=== PATIENT | male | born 1945 | race Caucasian/White ===

== ENCOUNTER 2021-10-29 19:04 | Emergency (ER) | payer OTHER, SELFPAY ==
--- NOTE | ~2021-10-29 | XR_ITS ---
EXAMINATION: XR CHEST CLINICAL INFORMATION: Chest pain. COMPARISON: Previous studies from 2007 were not available for comparison TECHNIQUE: Frontal view of the chest was obtained. FINDINGS: Mildly coarsened interstitial markings are seen with subtle opacities in the left mid and bilateral lower lung hernandez. The heart and mediastinal structures are unremarkable. XR/XR chest 1V IMPRESSION: 1 findings are nonspecific and could represent chronic interstitial changes however an infectious/inflammatory process cannot be excluded. Correlate clinically.
[2021-10-29 19:17] VITALS: BP 200/100; BP 219/80; PULSE 89; PULSE 90; RESP 20; TEMP 36.8; O2SAT 96; BMI 36.2
--- NOTE | 2021-10-29 19:31 | ED.GENADULT ---
HPI - General Adult General Chief complaint: General Medical Stated complaint: htn/bilat lower leg problems Time Seen by Provider: 10/29/21 19:16 Source: patient and family (Granddaughter) Mode of arrival: ambulatory Limitations: language barrier (Patient speaks [place] Islander, he does understand [place], the patient's granddaughter is here and she was used as an interpreter deaf) History of Present Illness HPI narrative: 76-year-old male who presents emergency department for evaluation of elevated blood pressure. According to his granddaughter, the patient was admitted to [facility] approximately 2 weeks ago for congestive heart failure and had a cardiac workup including cardiac catheterization. The patient was discharged with Plavix as his only new medication. Patient does take carvedilol and lisinopril as the only 2 medications that may affect his blood pressure. The granddaughter states that they check his blood pressure twice a day, once in the morning and once at night. This evening, they checked his blood pressure in the systolic blood pressure was 240. Patient also had some tingling S in his legs but otherwise had no other symptoms. According to the granddaughter the patient's systolic blood pressure usually is in the 140-160 range. The patient denied fever, chills, chest pain, shortness of breath, nausea, vomiting, headache. He has not noticed any pain or swelling in his lower extremities. He states he has had no change in his urine or bowel habits. Patient has been compliant with his medications. He states he has also been vaccinated for COVID-19. He has received the 2 shot vaccines but has not received his booster shot yet Related Data Allergies Allergy/AdvReac Type Severity Reaction Status Date / Time No Known Allergies Allergy Verified 10/29/21 19:34 Review of Systems Review of Systems: Yes all other systems are reviewed and are negative [facility] Past Medical History [facility] Narrative: Past medical history: Hypertension, congestive heart failure, COPD on 3 L of oxygen via nasal cannula 17/06 , chronic kidney disease GFR of 35%. Past surgical history: None. Social history: He denies tobacco, alcohol and drug use. Social History Social History Advance Directives: No Advance Directives Information Provided: Yes Physical Exam Vital Signs: Vital Signs: Last Vital Signs Temp 98.2 F 10/29/21 19:17 Pulse 83 10/29/21 20:02 Resp 16 10/29/21 20:02 BP 168/69 H 10/29/21 20:02 Pulse Ox 96 10/29/21 20:02 Oxygen Flow Rate 3 10/29/21 19:17 BMI result Body Mass Index 36.2 Const: General: cooperative and no acute distress Orientation/consciousness: oriented to person and oriented to place Limitations: no limitations HENMT: Head: Yes normal to inspection, Yes normocephalic and Yes atraumatic Ears: external ears normal General nose exam: Normal external nose present Face and sinus: Yes normal facial exam Mouth: Normal oral and palatal mucosa present Throat: Yes posterior oropharynx normal Eyes: General: appearance normal, both eyes and all related structures Pupils: Equal, round and reactive pupils present Neck: Neck: Yes normal visual inspection, Yes no lymphadenopathy, Yes trachea midline and Yes supple Chest: Chest palpation & inspection: normal inspection of the chest and normal palpation of entire chest wall Resp: Effort & Inspection: normal respiratory effort and able to speak in complete sentences Auscultation: clear to auscultation bilaterally Cardio: Rate: regular rate Rhythm: regular rhythm Heart sounds: S1 normal heart sound present, S2 normal heart sound present and no murmurs GI: Inspection: Yes normal to inspection Palpation (GI): Soft to palpation, nontender and no guarding Auscultation: normal bowel sounds : General: Yes no CVA tenderness Back/Spine/Pelvis: Back: no CVA tenderness Skin: General skin exam: no rashes or lesions noted Neuro: General: oriented to person and oriented to place Cranial nerves: Yes CN's II-XII intact bilaterally and Yes Equal, round and reactive pupils present Cognition (Neuro): normal cognition Motor exam (neuro): 5/5 motor strength present throughout Extrem: General: Yes normal to inspection Psych: Appearance: grossly normal Speech and movement: Normal speech and movement present Affect: normal affect Attitude: cooperative Thought process: Normal thought process present Thought content: Normal thought content present Course Course Course Narrative: 76-year-old male with a history of hypertension who presents emergency department for evaluation an asymptomatic elevation his systolic blood pressure in the 240 range. The patient has been compliant with his medications. The patient was recently hospitalized at [facility] for congestive heart failure and had a cardiac workup which included a cardiac catheterization. The only new medication added to his regimen after this workup was Plavix. The patient's vital signs did reveal an elevated blood pressure of 219/80 otherwise were unremarkable. Patient's physical examination was unremarkable. I ordered a CBC, CMP, COVID-19, troponin and urinalysis. Twelve EKG and one-view chest x-ray will also be obtained. The patient was placed on nuclear monitoring technician and we will monitor his blood pressure while he is in the emergency department. Glucose was elevated 1054: Laboratory evaluation: WBC elevated 11.5. BUN and creatinine were elevated 28 and 1.38 with a GFR of 43.5. Glucose was elevated 147. High sensitive troponin was detectable but not elevated at 6.6. Chest x-ray is consistent with his COPD with no acute findings. Twelve EKG was unremarkable. Patient's blood pressure did improve without any treatment. Patient's presentation is consistent with a central hypertension I did discuss this with the patient, his family member as well. Patient was given verbal and printed instructions discharged home. Medical Decision Making Lab Data Result diagrams: 10/29/21 20:01 10/29/21 20:01 Labs: Lab Results 10/29/21 10/29/21 10/29/21 Range/Units 19:57 20:01 20:01 WBC 11.5 H (4.8-10.8) X10*3/uL RBC 4.61 (4.60-5.80) X10*6/uL Hgb 13.3 L (14.0-18.0) g/dl Hct 40.7 L (42.0-52.0) % MCV 88.3 (80.0-98.0) fL MCH 28.9 (27.0-33.0) pg MCHC 32.7 (31.0-36.0) g/dl RDW 12.7 (11.0-16.0) % Plt Count 298 (160-400) X10*3/uL MPV 9.9 (9.4-12.4) fL Immature Gran % (Auto) 0.4 (0.0-0.4) % Neut % (Auto) 63.7 (45-73) % Lymph % (Auto) 22.5 (20-40) % [place] % (Auto) 6.3 (2-11) % Eos % (Auto) 6.2 H (0-4) % Baso % (Auto) 0.9 (0-2) % Lymph # (Auto) 2.6 (1.2-4.9) X10*3/uL [place] # (Auto) 0.7 (0.1-1.2) X10*3/uL Eos # (Auto) 0.7 H (0.0-0.4) X10*3/uL Baso # (Auto) 0.1 (0.0-0.2) X10*3/uL Abs Immat Gran (auto) 0.05 H (0.00-0.03) X10*3/uL Absolute Neuts (auto) 7.4 (2.0-8.3) x10*3/uL Absolute Nucleated RBC 0.000 (0.0-0.012) X10*3/uL Nucleated RBC % (auto) 0.0 (0.0-0.2) /100WBC Sodium 133 L (135-145) mmol/L Potassium 4.9 (3.3-5.1) mmol/L Chloride 104 (96-108) mmol/L Carbon Dioxide 21 L (22-29) mmol/L Anion Gap 13 (12-20) BUN 28 H (9-16) mg/dL Creatinine 1.38 (0.5-1.4) mg/dL Estim Creat Clear Calc 43.5 Estimated GFR 50 Random Glucose 147 H (60-115) mg/dL Calcium 8.8 (8.4-10.2) mg/dL Total Bilirubin 0.5 (0.0-1.0) mg/dL AST 19 (5-37) U/L ALT 19 (0-40) U/L Alkaline Phosphatase 89 (39-117) U/L Troponin I High Sens (<3.5-35.0) ng/L Total Protein 6.6 (6.5-8.0) g/dL Albumin 3.4 L (3.5-5.0) g/dL Urine Color Urine Appearance Urine pH (5.0-8.0) Ur Specific [place] (1.005-1.025) Urine Protein (NEG-TRACE) MG/DL Urine Glucose (UA) (NEG) MG/DL Urine Ketones (NEG) MG/DL Urine Blood (NEG) Urine Nitrite (NEG) Ur Leukocyte Esterase (NEG) Urine RBC (0) /HPF Urine WBC (0-4) /HPF Ur Squamous Epith Cells /LPF Urine Bacteria /LPF COVID-19 (DANNY) Negative (Negative) COVID-19 Clin Com See Note 10/29/21 10/29/21 Range/Units 20:01 20:39 WBC (4.8-10.8) X10*3/uL RBC (4.60-5.80) X10*6/uL Hgb (14.0-18.0) g/dl Hct (42.0-52.0) % MCV (80.0-98.0) fL MCH (27.0-33.0) pg MCHC (31.0-36.0) g/dl RDW (11.0-16.0) % Plt Count (160-400) X10*3/uL MPV (9.4-12.4) fL Immature Gran % (Auto) (0.0-0.4) % Neut % (Auto) (45-73) % Lymph % (Auto) (20-40) % [place] % (Auto) (2-11) % Eos % (Auto) (0-4) % Baso % (Auto) (0-2) % Lymph # (Auto) (1.2-4.9) X10*3/uL [place] # (Auto) (0.1-1.2) X10*3/uL Eos # (Auto) (0.0-0.4) X10*3/uL Baso # (Auto) (0.0-0.2) X10*3/uL Abs Immat Gran (auto) (0.00-0.03) X10*3/uL Absolute Neuts (auto) (2.0-8.3) x10*3/uL Absolute Nucleated RBC (0.0-0.012) X10*3/uL Nucleated RBC % (auto) (0.0-0.2) /100WBC Sodium (135-145) mmol/L Potassium (3.3-5.1) mmol/L Chloride (96-108) mmol/L Carbon Dioxide (22-29) mmol/L Anion Gap (12-20) BUN (9-16) mg/dL Creatinine (0.5-1.4) mg/dL Estim Creat Clear Calc Estimated GFR Random Glucose (60-115) mg/dL Calcium (8.4-10.2) mg/dL Total Bilirubin (0.0-1.0) mg/dL AST (5-37) U/L ALT (0-40) U/L Alkaline Phosphatase (39-117) U/L Troponin I High Sens 6.3 (<3.5-35.0) ng/L Total Protein (6.5-8.0) g/dL Albumin (3.5-5.0) g/dL Urine Color YELLOW Urine Appearance CLEAR Urine pH 7.0 (5.0-8.0) Ur Specific [place] 1.015 (1.005-1.025) Urine Protein 2+ H (NEG-TRACE) MG/DL Urine Glucose (UA) NEG (NEG) MG/DL Urine Ketones NEG (NEG) MG/DL Urine Blood TRACE (NEG) Urine Nitrite NEG (NEG) Ur Leukocyte Esterase NEG (NEG) Urine RBC 1-4 (0) /HPF Urine WBC 0-2 (0-4) /HPF Ur Squamous Epith Cells TRACE /LPF Urine Bacteria TRACE /LPF COVID-19 (DANNY) (Negative) COVID-19 Clin Com ECG Data Attestation: I personally reviewed and interpreted this ECG as follows: Interpretation: 1954: Normal sinus rhythm with a rate of 84, normal CA interval, QRS duration and QTC interval, no ST segment elevation, no ST segment depression, no PACs, no PVCs, inverted T-waves in the 3, the 5 and V6. Discharge Plan Discharge Clinical Impression: Essential hypertension Patient Disposition: Home, Self-Care Additional Instructions: The reason to check your blood pressure at home is to give your doctor an idea of what your blood pressure does when you are not in the doctor's office. Take your blood pressure in the morning, Saturday through Saturday and then write down these readings to discuss them with your doctor at your next visit. If you doctor decides that your blood pressure readings are high than your doctor will start you on medications. Your blood pressure will very throughout the day and go up in go down. Lowering your blood pressure to rapidly or getting your blood pressure too low quickly can make you feel bad. Please return to the emergency department if you develops concerning symptoms such as severe headache, chest pain, shortness of breath, difficulty walking secondary to shortness of breath, numbness, weakness, difficulty talking. Follow-up with your doctor to discuss your blood pressure readings. Please return to the emergency department if your symptoms get worse or if you develop any new symptoms that are concerning to you.
--- NOTE | 2021-10-29 19:40 | ECG_ITS ---
Test Reason : HYPERTENSION Blood Pressure : / mmHG Vent. Rate : 084 BPM Atrial Rate : 084 BPM P-R Int : 180 ms QRS Dur : 090 ms QT Int : 368 ms P-R-T Axes : 050 027 087 degrees QTc Int : 434 ms Normal sinus rhythm Low voltage QRS T wave abnormality, consider lateral ischemia Abnormal ECG When compared with ECG of 28-MAR-2005 07:06, T wave inversion now evident in Anterolateral leads Referred By: Morgan Sanchez Electronically Signed By:Td White
[2021-10-29 20:02] VITALS: BP 168/69; PULSE 83; RESP 16; O2SAT 96
[2021-10-29 20:07] LABS: MANUAL DIFF FLAG NO
[2021-10-29 20:13] LABS: Basophils Absolute Auto 0.1 X10*3/uL (0.0-0.2); Basophils Percent Auto 0.9 % (0-2); Eosinophils Absolute Auto 0.7 X10*3/uL (0.0-0.4); Eosinophils Percent Auto 6.2 % (0-4); Hematocrit 40.7 % (42.0-52.0); Hemoglobin 13.3 g/dl (14.0-18.0); Imm Gran Abs Auto 0.05 X10*3/uL (0.00-0.03); Imm Gran Pct Auto 0.4 % (0.0-0.4); Lymphocytes Absolute Auto 2.6 X10*3/uL (1.2-4.9); Lymphocytes Percent Auto 22.5 % (20-40); Mean Corpuscular HGB Conc 32.7 g/dl (31.0-36.0); Mean Corpuscular Hemoglobin 28.9 pg (27.0-33.0); Mean Corpuscular Volume 88.3 fL (80.0-98.0); Mean Platelet Volume 9.9 fL (9.4-12.4); Monocytes Absolute Auto 0.7 X10*3/uL (0.1-1.2); Monocytes Percent Auto 6.3 % (2-11); Neutrophils Absolute Auto 7.4 x10*3/uL (2.0-8.3); Neutrophils Percent Auto 63.7 % (45-73); Platelet Count 298 X10*3/uL (160-400); Red Blood Count 4.61 X10*6/uL (4.60-5.80); Red Cell Distribution Width 12.7 % (11.0-16.0); White Blood Count 11.5 X10*3/uL (4.8-10.8)
[2021-10-29 20:23] LABS: Alanine Aminotransferase 19 U/L (0-40); Albumin Level 3.4 g/dL (3.5-5.0); Alkaline Phosphatase 89 U/L (39-117); Anion Gap 13 (12-20); Aspartate Amino Transferase 19 U/L (5-37); Bilirubin Total 0.5 mg/dL (0.0-1.0); Blood Urea Nitrogen 28 mg/dL (9-16); Calcium 8.8 mg/dL (8.4-10.2); Carbon Dioxide 21 mmol/L (22-29); Chloride 104 mmol/L (96-108); Creatinine Clr Calc Pharmacy 43.5; Estimated Glomerular Filt Rate 50; Glucose Random 147 mg/dL (60-115); Potassium 4.9 mmol/L (3.3-5.1); Sodium 133 mmol/L (135-145); Total Protein 6.6 g/dL (6.5-8.0)
[2021-10-29 20:24] LABS: COVID-19 Test Negative (Negative)
[2021-10-29 20:29] LABS: Troponin-I High Sensitivity 6.3 ng/L (<3.5-35.0)
[2021-10-29 20:51] LABS: Appearance Urine CLEAR; Color Urine YELLOW; Glucose Urine UA NEG (NEG); Leukocyte Esterase Urine NEG (NEG); Nitrite Urine NEG (NEG); Specific Gravity - Urine 1.015 (1.005-1.025); UACC Culture Trigger NO; Urine Blood TRACE (NEG); Urine Ketones NEG (NEG); Urine Protein 2+ MG/DL (NEG-TRACE)
[2021-10-29 21:06] LABS: WBC Urine 0-2 /HPF (0-4)
[2021-10-29 21:07] LABS: Bacteria Urine TRACE /LPF; Squamous Epithelial Cell Urine TRACE /LPF
[2021-10-29 23:06] VITALS: BP 164/71; PULSE 81
== END 2021-10-29 23:07 | disposition home or self-care (01) ==
PROVIDERS: Emergency Provider Emergency Medicine Emergency Medical Services; PCP Internal Medicine
DX: I13.0 Hypertensive heart and chronic kidney disease with heart failure and stage 1 through stage 4 chronic kidney disease, or unspecified chronic kidney disease (principal); N18.9 Chronic kidney disease, unspecified; I50.9 Heart failure, unspecified; J44.9 Chronic obstructive pulmonary disease, unspecified; Z79.02 Long term (current) use of antithrombotics/antiplatelets; Z79.899 Other long term (current) drug therapy; Z99.81 Dependence on supplemental oxygen; Z20.822 Contact with and (suspected) exposure to COVID-19
CPT/HCPCS: 36415; 71045; 80053; 81001; 81003; 84484; 85025; 87635; 93005; 99284

== ENCOUNTER 2023-10-02 22:20 | Inpatient (IN) | payer OTHER, SELFPAY ==
[2023-10-02] VITALS (9 sets, daily range): BP systolic 95–202; BP diastolic 45–108; PULSE 111–133; RESP 21–32; TEMP 37.9–38.7; O2SAT 87–94; BMI 34.2
--- NOTE | ~2023-10-02 | NM_ITS ---
EXAMINATION: NM LUNG IMAGE PERFUSION CLINICAL INFORMATION: Continued hypoxia. Presumed resolving pneumonia involving the left lung. COMPARISON: Chest radiograph done on 10/09/2023 and 10/06/2023. TECHNIQUE: A total of 8 planar images of the chest were obtained following intravenous administration of 3.75 mCi of technetium 99 MAA through left forearm superficial vein without complications. FINDINGS: Chest radiograph: Asymmetric low lung volume of the left hemithorax associated with diffuse airspace opacity which appears improved since 10/06/2023. Note is also made of presumed small left-sided pleural effusion and/or thickening, similar to prior study. The perfusion images show marked decreased perfusion defect involving left upper lobe and right lower lobe. There are no ventilation images performed. When correlating with the current chest radiograph, the perfusion defect involving the left hemithoracic lung corresponds to the airspace disease seen on the chest radiograph while perfusion defect involving right lower lobe of the lung specifically involving the superior segment do not show any corresponding airspace disease. Based on modified PIOPED 2 criteria, the finding is considered nondiagnostic for pulmonary thromboembolism. NM/NM pul perfusion IMPRESSION: Based on modified PIOPED 2 criteria, perfusion only images show findings considered nondiagnostic for pulmonary thromboembolism. CTA of the chest and/or bilateral lower extremity DVT study as appropriate may be considered for further clarification.
--- NOTE | ~2023-10-02 | US_ITS ---
EXAMINATION: US RETROPERITONEAL LIMITED (RENAL ONLY) CLINICAL INFORMATION: Acute kidney injury. COMPARISON: CT chest 01/28/2007 TECHNIQUE: Ultrasound of the kidneys was performed FINDINGS: RIGHT KIDNEY: 11.2 x 6.2 x 5.7 cm (SAG x AP x TRV). The kidney is normal in size, contour, and echogenicity. Renal cortical thickness is normal. No calculi. Multiple benign Bosniak class I renal cysts are noted, the largest measuring 5.3 cm which require no additional imaging or follow-up. No solid renal masses are seen. No hydronephrosis. LEFT KIDNEY: 12.4 x 6.9 x 5.5 cm (SAG x AP x TRV). The kidney is normal in size, contour, and echogenicity. Renal cortical thickness is normal. No calculi. Multiple benign Bosniak class I renal cysts are noted, the largest measuring 6.9 cm which require no additional imaging or follow-up. No solid renal masses are seen. No hydronephrosis. US/US renal BI IMPRESSION: 1. Bilateral benign Bosniak class I renal cysts which require no additional imaging or follow-up. Benign Bosniak class I renal cysts were present on the chest CT from 01/28/2007, but more extensive on the current exam. 2. A definite etiology for worsening renal function has not been found.
--- NOTE | ~2023-10-02 | XR_ITS ---
EXAMINATION: XR CHEST CLINICAL INFORMATION: Reassess pneumonia. COMPARISON: 10/03/2023. TECHNIQUE: Portable AP view of the chest was obtained. XR/XR chest 1V FINDINGS/IMPRESSION: The study is limited by portable technique and suboptimal inspiration. Allowing for differences in technique and inspiration, there has been no gross significant radiographic change compared with 3 days prior. Examination again demonstrates diffuse, patchy interstitial and alveolar infiltrates involving the left lung. Trace left pleural fluid and/or thickening cannot be excluded. There may be a small interstitial infiltrate at the right lung base. No pneumothorax is seen. The cardiac silhouette is suboptimally evaluated. The aorta is mildly atherosclerotic. A tiny metallic device projecting over the right lung base may possibly represent a CardioMEMS device. The tip of a presumed right internal jugular central venous line projects over the superior vena cava.
--- NOTE | ~2023-10-02 | XR_ITS ---
EXAMINATION: XR CHEST CLINICAL INFORMATION: Reassessment of pneumonia COMPARISON: 10/09/2023, 10/03/2023, 10/02/2023. TECHNIQUE: Chest AP upright portable exam FINDINGS: There is stable position of right jugular central venous catheter with the tip over the SVC. There is improvement of patchy airspace disease in the left lung, consistent with partial resolution of atypical pneumonia. Density of consolidation is less intense. Right lung is clear. Cardiomediastinal silhouette is normal. view of the chest was obtained. XR/XR chest 1V IMPRESSION: Interval improvement of pneumonia
--- NOTE | ~2023-10-02 | XR_ITS ---
EXAMINATION: XR CHEST CLINICAL INFORMATION: Dyspnea. COMPARISON: Chest radiograph 10/29/2021. TECHNIQUE: AP view of the chest was obtained. FINDINGS: New multifocal airspace opacities more noticeable in the left lung. Possible trace amount of bilateral pleural fluid. No pneumothorax. Stable cardiomediastinal silhouette. Nonspecific radiopaque densities projecting over the right perihilar region. No acute osseous findings. XR/XR chest 1V IMPRESSION: 1. New multifocal airspace opacities concerning for an atypical pneumonia. Recommend follow-up imaging to ensure appropriate resolution. 2. Possible trace amount of bilateral pleural fluid. 3. Nonspecific radiopaque densities projecting over the right perihilar region.
--- NOTE | ~2023-10-02 | US_ITS ---
EXAMINATION: US VENOUS ULTRASOUND WITH DOPPLER LOWER EXTREMITY, BILATERAL CLINICAL INFORMATION: PE. COMPARISON: None available. TECHNIQUE: Ultrasound of the deep veins is performed from the hip to the calf with compression sonography and color and pulse Doppler assessment. Spectral analysis with color-flow imaging is performed. FINDINGS: RIGHT: There is normal venous compression and respiratory variation and augmented flow. The visualized common femoral vein, superficial femoral vein, profunda femoral vein, popliteal vein, and the trifurcation region shows no evidence of deep venous thrombosis. There is no significant popliteal fossa cyst. LEFT: There is normal venous compression and respiratory variation and augmented flow. The visualized common femoral vein, superficial femoral vein, profunda femoral vein, popliteal vein, and the trifurcation region shows no evidence of deep venous thrombosis. There is no significant popliteal fossa cyst. If the patient's symptoms persist, followup ultrasound in 5 days 7 days might be of value to exclude proximal propagation from a non-visualized calf vein. US/US venous duplex LE BI IMPRESSION: No DVT demonstrated in the bilateral lower extremity.
--- NOTE | ~2023-10-02 | XR_ITS ---
EXAMINATION: XR CHEST CLINICAL INFORMATION: Post central line placement. COMPARISON: 10/02/2023. TECHNIQUE: Frontal view of the chest was obtained. FINDINGS: The lung volumes are low. The cardiomediastinal silhouette is stable. There has been interval placement of a right central line with tip at the level of the mid SVC. There is mild diffuse increased markings. There is a left upper lobe/lingular infiltrate which appears more consolidated currently when compared to prior. There is no pneumothorax. The bony structures and soft tissues are unremarkable. XR/XR chest 1V IMPRESSION: Interval placement of a right central line in adequate position. No pneumothorax. Increasing consolidation in the lingular/left upper lobe likely pneumonia.
--- NOTE | 2023-10-02 22:24 | ECG_ITS ---
Test Reason : SOB Blood Pressure : / mmHG Vent. Rate : 127 BPM Atrial Rate : 127 BPM P-R Int : 152 ms QRS Dur : 090 ms QT Int : 306 ms P-R-T Axes : 065 069 035 degrees QTc Int : 444 ms Sinus tachycardia RSR' or QR pattern in V1 suggests right ventricular conduction delay Abnormal ECG When compared with ECG of 29-OCT-2021 19:54, Vent. rate has increased BY 43 BPM T wave inversion no longer evident in Anterolateral leads Referred By: Rogers Moran Electronically Signed By:CADEN TRAN MD
--- NOTE | 2023-10-02 22:30 | ED_ITS ---
HPI - SOB/Dyspnea General Chief Complaint: Dyspnea Stated Complaint: TACHY, HYPERTENSIVE, NAUSEA, HX COPD Time Seen by Provider: 10/02/23 22:23 Source: patient Mode of arrival: EMS Limitations: no limitations History of Present Illness HPI Narrative: Patient's CT of COPD 3 L oxygen at home history of coronary disease status post stent placed years ago, CHF, CKD comes in for increased shortness of breath started prior to arrival saturated to 80% at 3 L pleasant non-rebreather patient denied any chest pain no fever no chills no upper respiratory symptom on arrival patient noticed to have temperature of 101.6 degrees no increased leg swelling or leg pain Related Data Home Medications Medication Instructions Recorded Confirmed aspirin 81 mg chewable tablet 1 tab PO DAILY 10/03/23 10/03/23 atorvastatin 80 mg tablet 80 mg PO DAILY 10/03/23 10/03/23 carvedilol 6.25 mg tablet mg PO BEDTIME 10/03/23 clopidogrel 75 mg tablet 75 mg PO DAILY 10/03/23 10/03/23 ferrous sulfate 325 mg (65 mg 325 mg PO DAILY 10/03/23 10/03/23 iron) tablet isosorbide mononitrate 30 mg 30 mg PO DAILY 10/03/23 10/03/23 tablet,extended release 24 hr lisinopril 10 mg tablet 10 mg PO DAILY 10/03/23 10/03/23 torsemide 10 mg tablet 10 mg PO 2XD 10/03/23 10/03/23 Allergies Allergy/AdvReac Type Severity Reaction Status Date / Time No Known Allergies Allergy Verified 10/29/21 19:34 Review of Systems 2 Review of Systems: Yes all other systems are reviewed and are negative [facility] Past Medical History Medical History (Updated 10/03/23 @ 07:41 by Rogers Moran MD) Diabetes mellitus, type 2 Chronic respiratory failure with hypoxia COPD (chronic obstructive pulmonary disease) CKD (chronic kidney disease) CHF (congestive heart failure) Coronary artery disease Surgical History (Updated 10/03/23 @ 03:35 by Rogers Moran MD) S/P coronary artery stent placement Social History Social History Smoked in Last 30 Days: No Use of substances other than those prescribed or required for medical reasons: No Advance Directives: No Advance Directives Information Provided: Yes Physical Exam 2 Vital Signs: Vital Signs: Last Vital Signs Temp 98.1 F 10/03/23 04:59 Pulse 98 10/03/23 07:38 Resp 22 H 10/03/23 07:38 BP 133/56 L 10/03/23 07:38 Pulse Ox 93 10/03/23 07:38 O2 Del Method Oxymask 10/03/23 07:38 O2 Flow Rate 12 10/03/23 07:38 Oxygen Flow Rate 15 10/02/23 22:41 BMI result Body Mass Index 34.2 Appearance: Alert. Oriented X3. Moderate respiratory distress on OxyMask Eyes: No pallor or icterus ENT: Pharynx normal. Oral Mucosa moist Neck: Normal inspection. Neck supple. CVS: Normal heart rate and rhythm. Pulses normal. Respiratory: No respiratory distress. Equal air entry bilateral, bilateral wheezing , bilateral coarse crackles bilateral Abdomen: Soft and nontender. Bowel sounds are present, no mass palpable, no CVA tenderness Skin: Skin warm and dry. Normal skin color. Normal skin turgor. Extremities: No lower extremity edema. No calf tenderness Neuro: Oriented X 3. No motor deficit. Medications Administered Generic Name Dose Route Start Last Admin Trade Name Freq PRN Reason Stop Dose Admin Heparin Sodium/Sodium Chloride 25,000 unit in 250 mls @ 0 mls/hr 10/03/23 03:00 10/03/23 04:08 Heparin Sodium,Porcine/1/2ns IVCONT 11.78 units/kg/hr .Q0M ANDREW 10 mls/hr Administration Protocol Per Protocol Lactated Ringer's 1,000 mls @ 150 mls/hr 10/03/23 04:30 10/03/23 05:08 Lr IVCONT 150 mls/hr .Q6H40M ANDREW Administration Norepinephrine Bitartrate 8 mg in 250 mls @ 0 mls/hr 10/03/23 04:30 10/03/23 05:04 Levophed IV 0.05 mcg/kg/min .Q0M ANDREW 7.96 mls/hr Administration Protocol Per Protocol Discontinued Medications Generic Name Dose Route Start Last Admin Trade Name Freq PRN Reason Stop Dose Admin Acetaminophen 650 mg 10/02/23 22:48 10/02/23 22:55 Acetaminophen 325 Mg Tablet PO 10/02/23 22:49 650 mg ONCE ONE Administration Levalbuterol HCl 3.75 mg/ 0 mg 10/02/23 22:36 10/02/23 22:41 Ipratropium [place] 0.5 mg INHALE 10/02/23 22:37 3 dose ONCE ONE Administration Heparin Sodium (Porcine) 5,000 unit 10/03/23 02:57 10/03/23 03:06 Heparin Sodium,Porcine 5,000 Unit/Ml Vial IVPUSH 10/03/23 02:58 5,000 unit ONCE ONE Administration Ceftriaxone Sodium 1 gm/ 50 mls @ 100 mls/hr 10/02/23 22:48 10/02/23 23:40 Sodium Chloride IV 10/02/23 23:17 Infused ONCE ONE Infusion Sodium Chloride 1,000 mls @ 999 mls/hr 10/02/23 23:23 10/03/23 00:49 Ns IV 10/03/23 00:23 Infused .Q1H1M ONE Infusion Doxycycline Hyclate 100 mg/ 250 mls @ 166.67 mls/hr 10/02/23 23:29 10/03/23 01:17 Sodium Chloride IV 10/03/23 00:58 Infused ONCE ONE Infusion Sodium Chloride 1,000 mls @ 999 mls/hr 10/03/23 00:44 10/03/23 01:48 Ns IV 10/03/23 01:44 Infused .Q1H1M ONE Infusion Sodium Zirconium Cyclosilicate 10 gm 10/03/23 00:24 10/03/23 03:06 Sodium Zirconium Cyclosilicate 10 Gm Powd.Pack PO 10/03/23 00:25 10 gm ONCE ONE Administration Medical Decision Making Medical Decision Making MDM Narrative: Patient with working diagnosis of bilateral pneumonia BNP normal COVID flu negative started on IV Rocephin and doxycycline on arrival patient's blood pressure was 162/75 during stay in the ER patient's blood pressure continued to drop lowest blood pressure was 74/38 received 2 L of IV fluids along with antibiotics also patient had chest pain which pleuritic EKG without any ischemic changes significant increase in troponin started on heparin drip likely patient has drop in blood pressure from sepsis with bilateral pneumonia possible from non STEMI unlikely PE unable to do CT angio because the CKD with poor ejection fraction. Will admit patient to ICU no bed available at this time will keep the patient in the ER 440 am Patient continued to be hypotensive initial arrival received IV fluids still blood pressure in 80s systolic start Levophed drip admit to ICU Differential Diagnosis Differential Diagnoses: The differential diagnosis associated with the presentation includes Severe sepsis/non STEMI/bilateral pneumonia daycare Admission/Observation Consideration of admission/observation: Escalation of care including admission/observation considered Consult Healthcare Provider Management of the patient was discussed with: Neurosurgery Research Director Unix System Administrator , cardio Lab Data [facility] Lab Attestation statement: I reviewed the patient's lab results. 10/02/23 22:33 10/03/23 03:09 Labs: Lab Results 10/02/23 10/02/23 10/02/23 Range/Units 22:33 22:36 23:11 WBC 17.8 H (4.8-10.8) X10*3/uL RBC 5.19 (4.60-5.80) X10*6/uL Hgb 14.9 (14.0-18.0) g/dl Hct 45.9 (42.0-52.0) % MCV 88.4 (80.0-98.0) fL MCH 28.7 (27.0-33.0) pg MCHC 32.5 (31.0-36.0) g/dl RDW 13.4 (11.0-16.0) % Plt Count 241 (160-400) X10*3/uL MPV 10.6 (9.4-12.4) fL Immature Gran % (Auto) 0.5 H (0.0-0.4) % Neut % (Auto) 90.8 H (45-73) % Lymph % (Auto) 5.7 L (20-40) % [place] % (Auto) 2.1 (2-11) % Eos % (Auto) 0.6 (0-4) % Baso % (Auto) 0.3 (0-2) % Lymph # (Auto) 1.0 L (1.2-4.9) X10*3/uL [place] # (Auto) 0.4 (0.1-1.2) X10*3/uL Eos # (Auto) 0.1 (0.0-0.4) X10*3/uL Baso # (Auto) 0.1 (0.0-0.2) X10*3/uL Abs Immat Gran (auto) 0.09 H (0.00-0.03) X10*3/uL Absolute Neuts (auto) 16.2 H (2.0-8.3) x10*3/uL Absolute Nucleated RBC 0.000 (0.0-0.012) X10*3/uL Nucleated RBC % (auto) 0.0 (0.0-0.2) /100WBC Smear Tech's Comments VERIFIED PT (11.1-13.3) SEC INR (0.9-1.1) APTT (26.0-36.4) SEC D-Dimer High Sensitivty NG/ML VBG pH 7.46 H (7.32-7.43) VBG pCO2 27 mmHg VBG pO2 60 mmHg VBG HCO3 20 L (22-26) mmol/L VBG O2 Saturation 92.0 % VBG Base Excess -1.8 mmol/L Sodium 135 (135-145) mmol/L Potassium 5.6 H (3.3-5.1) mmol/L Chloride 103 (96-108) mmol/L Carbon Dioxide 21 L (22-29) mmol/L Anion Gap 17 (12-20) BUN 69 H (9-16) mg/dL Creatinine 2.09 H (0.5-1.4) mg/dL Estim Creat Clear Calc 27.0 Estimated GFR 31 Random Glucose 147 H (60-115) mg/dL Lactic Acid 1.0 (0.5-2.0) mmol/L Calcium 8.8 (8.4-10.2) mg/dL Total Bilirubin 0.6 (0.0-1.0) mg/dL AST 32 (5-37) U/L ALT 31 (0-40) U/L Alkaline Phosphatase 96 (39-117) U/L Troponin I High Sens 179.1 H* (<3.5-35.0) ng/L B-Natriuretic Peptide 75 (<100) pg/mL Total Protein 8.3 H (6.5-8.0) g/dL Albumin 3.8 (3.5-5.0) g/dL Influenza Type A (PCR) (Negative) Influenza Type B (PCR) (Negative) RSV RNA Qual (PCR) (Negative) SARS-CoV-2 RNA (RT-PCR) (Negative) 11/08/23 11/09/23 11/09/23 Range/Units 23:37 02:14 03:09 WBC (4.8-10.8) X10*3/uL RBC (4.60-5.80) X10*6/uL Hgb (14.0-18.0) g/dl Hct (42.0-52.0) % MCV (80.0-98.0) fL MCH (27.0-33.0) pg MCHC (31.0-36.0) g/dl RDW (11.0-16.0) % Plt Count (160-400) X10*3/uL MPV (9.4-12.4) fL Immature Gran % (Auto) (0.0-0.4) % Neut % (Auto) (45-73) % Lymph % (Auto) (20-40) % [place] % (Auto) (2-11) % Eos % (Auto) (0-4) % Baso % (Auto) (0-2) % Lymph # (Auto) (1.2-4.9) X10*3/uL [place] # (Auto) (0.1-1.2) X10*3/uL Eos # (Auto) (0.0-0.4) X10*3/uL Baso # (Auto) (0.0-0.2) X10*3/uL Abs Immat Gran (auto) (0.00-0.03) X10*3/uL Absolute Neuts (auto) (2.0-8.3) x10*3/uL Absolute Nucleated RBC (0.0-0.012) X10*3/uL Nucleated RBC % (auto) (0.0-0.2) /100WBC Smear Tech's Comments PT 17.7 H (11.1-13.3) SEC INR 1.5 H (0.9-1.1) APTT 30.7 (26.0-36.4) SEC D-Dimer High Sensitivty 660 NG/ML VBG pH (7.32-7.43) VBG pCO2 mmHg VBG pO2 mmHg VBG HCO3 (22-26) mmol/L VBG O2 Saturation % VBG Base Excess mmol/L Sodium 138 (135-145) mmol/L Potassium 4.3 D (3.3-5.1) mmol/L Chloride 113 H (96-108) mmol/L Carbon Dioxide 18 L (22-29) mmol/L Anion Gap 11 L (12-20) BUN 65 H (9-16) mg/dL Creatinine 1.78 H (0.5-1.4) mg/dL Estim Creat Clear Calc 31.7 Estimated GFR 37 Random Glucose 134 H (60-115) mg/dL Lactic Acid (0.5-2.0) mmol/L Calcium 7.0 L D (8.4-10.2) mg/dL Total Bilirubin (0.0-1.0) mg/dL AST (5-37) U/L ALT (0-40) U/L Alkaline Phosphatase (39-117) U/L Troponin I High Sens 823.2 H* D (<3.5-35.0) ng/L B-Natriuretic Peptide (<100) pg/mL Total Protein (6.5-8.0) g/dL Albumin (3.5-5.0) g/dL Influenza Type A (PCR) NEGATIVE (Negative) Influenza Type B (PCR) NEGATIVE (Negative) RSV RNA Qual (PCR) NEGATIVE (Negative) SARS-CoV-2 RNA (RT-PCR) NEGATIVE (Negative) Independent Interpretation I performed an independent interpretation of an: EKG and Plain X-Ray Interpretation: Sinus tachycardia heart rate 127 beats per minute no acute ST elevation poor progression of R-wave no acute ischemia Radiology Impression Discussion of test interpretation with radiology: I have reviewed the radiologist's reading. Critical Care Time Critical Care Time Total Critical Care Time: 60 Attestation: The patient was critically ill with a high probability of imminent or life threatening deterioration. I spent greater than 70 minutes of discontinuous time evaluating the patient,delivering critical care at the bedside, discussing and evaluating pertinent data with consultants. Critical care time does not include time spent performing separately billable procedures or teaching. Total time spent performing critical care was 60 minutes. Discharge Plan Discharge Clinical Impression: Community acquired pneumonia, Severe sepsis, Acute non-ST elevation myocardial infarction (NSTEMI), Acute and chronic respiratory failure, MAE (acute kidney injury) Patient Disposition: Admitted As Inpatient
[2023-10-02 22:40] LABS: Basophils Absolute Auto 0.1 X10*3/uL (0.0-0.2); Basophils Percent Auto 0.3 % (0-2); Eosinophils Absolute Auto 0.1 X10*3/uL (0.0-0.4); Eosinophils Percent Auto 0.6 % (0-4); Hematocrit 45.9 % (42.0-52.0); Hemoglobin 14.9 g/dl (14.0-18.0); Imm Gran Abs Auto 0.09 X10*3/uL (0.00-0.03); Imm Gran Pct Auto 0.5 % (0.0-0.4); Lymphocytes Percent Auto 5.7 % (20-40); MANUAL DIFF FLAG SCAN; Mean Corpuscular HGB Conc 32.5 g/dl (31.0-36.0); Mean Corpuscular Hemoglobin 28.7 pg (27.0-33.0); Mean Corpuscular Volume 88.4 fL (80.0-98.0); Mean Platelet Volume 10.6 fL (9.4-12.4); Monocytes Absolute Auto 0.4 X10*3/uL (0.1-1.2); Monocytes Percent Auto 2.1 % (2-11); Neutrophils Absolute Auto 16.2 x10*3/uL (2.0-8.3); Neutrophils Percent Auto 90.8 % (45-73); Platelet Count 241 X10*3/uL (160-400); Red Blood Count 5.19 X10*6/uL (4.60-5.80); Red Cell Distribution Width 13.4 % (11.0-16.0); SCAN SMEAR FLAG 1; White Blood Count 17.8 X10*3/uL (4.8-10.8)
[2023-10-02] MEDS: levalbuterol HCL 3.75 MG, Ipratropium Bromide 0.5 MG INHALE (22:41)
--- NOTE | 2023-10-02 22:48 | PC.NURSE ---
pt BIBA for sob. 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 Hx COPD and CHF. lung sounds clear on arrival to ED . pt working to breathe. shallow, increased respirations. 101.6 oral temp. pt was 80% on his 3L O2 at home. came in on a nonrebreather mask at 15L 94%. duoneb treatments given by RT. aware of temp. iv line placed #20g LFA. labs/blood cultures sent. ekg done. pt on manager cardiac cath. plan of care ongoing
--- NOTE | 2023-10-02 22:53 | MHC.EDTECH ---
Patient came in by EMS,changed into hospital attire and placed on the patent paralegal ,vitals were taken and temp is 101.6 orally and his O2 sats are 88% on a due neb. RN and RT at bedside and are aware, EKG done and second set of blood cultures obtained and sent to lab.Family at bedside
[2023-10-02] MEDS: Acetaminophen 325 MG TABLET 650 MG PO (22:55)
[2023-10-02 22:57] LABS: Alanine Aminotransferase 31 U/L (0-40); Albumin Level 3.8 g/dL (3.5-5.0); Alkaline Phosphatase 96 U/L (39-117); Anion Gap 17 (12-20); Aspartate Amino Transferase 32 U/L (5-37); Bilirubin Total 0.6 mg/dL (0.0-1.0); Blood Urea Nitrogen 69 mg/dL (9-16); Calcium 8.8 mg/dL (8.4-10.2); Carbon Dioxide 21 mmol/L (22-29); Chloride 103 mmol/L (96-108); Estimated Glomerular Filt Rate 31; Glucose Random 147 mg/dL (60-115); Potassium 5.6 mmol/L (3.3-5.1); Sodium 135 mmol/L (135-145); Total Protein 8.3 g/dL (6.5-8.0)
[2023-10-02 22:59] LABS: B Type Natriuretic Peptide 75 pg/mL (<100)
[2023-10-02 23:01] LABS: SLIDE REVIEW VERIFIED
[2023-10-02 23:04] LABS: Troponin-I High Sensitivity 179.1 ng/L (<3.5-35.0)
[2023-10-02] MEDS: cefTRIAXone sodium 1 GM in 0.9 % Sodium Chloride 50 ML IV (23:10)
[2023-10-02 23:17] LABS: Venous Blood Gas Refer to POC result
[2023-10-02 23:18] LABS: VBG Base Excess -1.8 mmol/L; VBG HCO3 20 mmol/L (22-26); VBG pCO2 27 mmHg; VBG pH 7.46 (7.32-7.43); VBG pO2 60 mmHg
--- NOTE | 2023-10-02 23:25 | MHC.EDTECH ---
Patients BP dropped 98/49 repeated 96/[address] Moran aware
--- NOTE | 2023-10-02 23:35 | MHC.EDTECH ---
Belonging list completed and copy placed in chart daughter took home all belongings and o2 tank.
--- NOTE | 2023-10-02 23:37 | MHC.EDTECH ---
Sars/RSV/Covid obtained per order and sent to lab.
[2023-10-02] MEDS: Doxycycline Hyclate 100 MG in 0.9 % Sodium Chloride 250 ML 166.67 MG IV (23:47)
[2023-10-02] MEDS: 0.9 % Sodium Chloride 1,000 ML 999 ML IV (23:48)
--- NOTE | 2023-10-02 23:52 | MHC.EDTECH ---
Blood pressure is 103/49 at this time and patient urinated 250ML in urinal. Patient repositioned to comfort.
[2023-10-03] VITALS (33 sets, daily range): BP systolic 74–163; BP diastolic 34–72; PULSE 87–112; RESP 16–30; TEMP 36.1–37.3; O2SAT 90–97; BMI 34.2
--- NOTE | 2023-10-03 00:13 | PC.NURSE ---
med list verified with pt daughter however pt is unsure of the doses of each medication. all she knows is that torsemide was increased from 10mg 1x/day to 10mg 2x/day.
[2023-10-03 00:23] LABS: Influenza A PCR NEGATIVE (Negative); Influenza B PCR NEGATIVE (Negative); Resp Syncy Virus RNA Qual PCR NEGATIVE (Negative); SARS COV2 PCR INHOUSE NEGATIVE (Negative)
[2023-10-03] MEDS: 0.9 % Sodium Chloride 1,000 ML 999 ML IV (00:47)
--- NOTE | 2023-10-03 00:48 | MHC.EDTECH ---
Patient's BP is 92/44 RN Flavia is aware and at bedside
--- NOTE | 2023-10-03 02:11 | ECG_ITS ---
Test Reason : CHES PAIN Blood Pressure : / mmHG Vent. Rate : 103 BPM Atrial Rate : 103 BPM P-R Int : 176 ms QRS Dur : 086 ms QT Int : 352 ms P-R-T Axes : 071 028 092 degrees QTc Int : 461 ms Sinus tachycardia Low voltage QRS Nonspecific ST and T wave abnormality Abnormal ECG When compared with ECG of 03-OCT-2023 02:12, No significant change was found Referred By: Rogers Moran Electronically Signed By:CADEN TRAN MD
--- NOTE | 2023-10-03 02:21 | PC.NURSE ---
repeat ekg done by this RN as pt was reporting dull L sided chest pain. MD aware. repeat troponin sent .
[2023-10-03 02:47] LABS: Troponin-I High Sensitivity 823.2 ng/L (<3.5-35.0)
--- NOTE | 2023-10-03 02:50 | ECG_ITS ---
Test Reason : CHEST PAIN Blood Pressure : / mmHG Vent. Rate : 103 BPM Atrial Rate : 103 BPM P-R Int : 170 ms QRS Dur : 084 ms QT Int : 354 ms P-R-T Axes : 066 020 086 degrees QTc Int : 463 ms Sinus tachycardia Nonspecific T wave abnormality Low voltage QRS Borderline ECG When compared with ECG of 02-OCT-2023 22:28, Nonspecific T wave abnormality now evident in Lateral leads Referred By: Rogers Moran Electronically Signed By:CADEN TRAN MD
--- NOTE | 2023-10-03 02:55 | MHC.EDTECH ---
Repeat EKG taken per request of provider, vitals were taken and BP is 88/34 JAILENE Alejandro and at bedside at this time. Patient was repositioned to comfort
[2023-10-03] MEDS: Heparin Sodium,Porcine 5,000 UNIT/ML VIAL 5000 UNIT IVPUSH (03:06)
[2023-10-03] MEDS: Sodium Zirconium Cyclosilicate 10 GM POWD.PACK PO (03:06)
--- NOTE | 2023-10-03 03:11 | MHC.EDTECH ---
Labs were drawn and sent to lab, BP is 87/40 RN aware
--- NOTE | 2023-10-03 03:15 | PC.NURSE ---
repeat troponin resulted and elevated. 3rd ekg done as pt saying chest pain worsening. MD aware. heparin bolus given. heparin drip to be started
[2023-10-03 03:31] LABS: Anion Gap 11 (12-20); Blood Urea Nitrogen 65 mg/dL (9-16); Carbon Dioxide 18 mmol/L (22-29); Chloride 113 mmol/L (96-108); Creatinine Clr Calc Pharmacy 31.7; Estimated Glomerular Filt Rate 37; Glucose Random 134 mg/dL (60-115); Potassium 4.3 mmol/L (3.3-5.1); Sodium 138 mmol/L (135-145)
[2023-10-03 03:33] LABS: INTERNATIONAL NORM RATIO 1.5 (0.9-1.1); Prothrombin Time 17.7 SEC (11.1-13.3)
[2023-10-03 03:35] LABS: D Dimer High Sensitivity 660 NG/ML; Partial Thromboplastin Time 30.7 SEC (26.0-36.4)
[2023-10-03] MEDS: Heparin Sodium,Porcine/1/2NS 25,000 UNIT/250 ML IV.SOLN 10 UNIT IVCONT (04:08)
--- NOTE | 2023-10-03 04:43 | MHC.EDTECH ---
Late Entry,patient bladder scanned 349ML, Patient urinated right after scan in urinal 300ML.
--- NOTE | 2023-10-03 04:47 | MHC.EDTECH ---
Assisted DR. Moran on central line placement,patient tolerated procedure well.
[2023-10-03] MEDS: Norepinephrine Bitartrate/D5W 8 MG/250 ML PLAST..BAG 7.96 MG IV (05:04)
[2023-10-03] MEDS: Lactated Ringers 1,000 ML 150 ML IVCONT (05:08)
--- NOTE | 2023-10-03 05:15 | PC.NURSE ---
CENTRAL LINE PLACED IN R EJ BY MD CHRISTIANSEN. LEVOFED DRIP STARTED FOR MAP <65 AND SYSTOLIC BPs LESS THAN 90. HEPARIN DRIP RUNNING @10ML/HR VIA CENTRAL LINE LEVOFED RUNNING @ 0.05MCG/KG/MIN VIA CENTRAL LINE LR RUNNING @150ML/HR VIA PERIPHERAL IV PT TOLERATED VERY WELL. CONTINUOUS MONITORING IN PLACE. PLAN OF CARE ONGOING PT NOT SYMPTOMATIC FROM LOW BPS. SPEAKING CLEAR FULL SENTENCES, ANSWERING QUESTIONS APPROPRIATELY A&OX4, DENIES PAIN CURRENTLY
--- NOTE | 2023-10-03 06:21 | MHC.EDTECH ---
Hourly rounds and vitals completed,patients BP is 106/47 RN Flavia is aware. Patient was repositioned to comfort. Call bhakta within reach and family at bedside
--- NOTE | 2023-10-03 06:50 | CA_ITS ---
Transthoracic Echocardiogram Patient (Last, First, Middle): Misael Gómez, Gender: Male Date of : 1945 Age: 78 Procedure Date: 10/03/2023 Procedure Type: Transthoracic Echocardiogram Location: ER Height: 157.48 cm Weight: 84.82 kg BSA: 1.86 m2 Heart Rate: 101 bpm BP: 117 / 50 mmHg Service Operations Manager: KRISTIE/JAYLIN Referring MD: Rogers Moran MD Symptoms: nstemi/hypotension Study Quality: Fair ECG Rhythm: Tachycardia Conclusions: - 1. Normal LV ejection fraction of 60 65% with mild LVH with impaired relaxation filling pattern 2. Mild aortic regurgitation with calcific aortic and mitral valve changes noted 3. Upper limits of normal RV systolic pressure Findings Procedure Information Contrast agent, definity, is being given per protocol without apparent complications. Left Ventricle Normal left ventricular size and systolic function. There is mildly increased left ventricular wall thickness. The visually estimated ejection fraction is between 60-65%. Spectral Doppler is indicative of an impaired relaxation filling pattern. E/E prime ratio is between 8 and 15 consistent with indeterminate filling pressures. Wall Motion Rest Echo Findings The basal inferior and basal inferoseptal segments are hypokinetic. All other scored wall segments showed normal motion. Right Ventricle The right ventricle was not well visualized. Atria The left atrium is normal in size. There is lipomatous hypertrophy of the interatrial septum. There is no evidence of interatrial shunt. The right atrium was not well visualized. Aortic Valve The aortic valve was not well visualized. There is a normal trileaflet aortic valve. There is mild calcification of the aortic valve. There is no aortic valve stenosis. There is mild aortic valve regurgitation. Mitral Valve The mitral valve was not well visualized. There is mild mitral annular calcification. There is trace mitral valve regurgitation. There is no mitral valve stenosis. Pulmonic Valve The pulmonic valve was not well visualized. Tricuspid Valve Likely normal tricuspid valve structure and function. Great Vessels The aorta was not well visualized. The pulmonary artery was not well visualized. Venous The inferior vena cava is normal in size and collapses greater than 50% with inspiration. Pericardium/Pleural The pericardium was not well visualized. Prior Study Comparison No prior study available for comparison. Measurements 2D Linear Measurements IVSd: 1.56 0.6-0.9/0.6-1.0 cm LVIDd: 3.60 3.9-5.3/4.2-5.9 cm LVIDd Index: 1.94 2.4-3.2/2.2-3.1 cm/m2 LVIDs: 1.98 2.0-3.6 cm LVPWd: 1.08 0.7-1.1 cm LA Diam: 3.30 2.7-3.8/3.0-4.0 cm LAIDs Index: 1.77 1.5-2.3 cm/m2 LV Mass: 204.17 67-162/88-224 g LV Mass Index: 109.77 43-95/49-115 g/m2 LVOT Diam: 2.10 3.0+(-)1.3 cm 2D Systolic Function EF 4C: 62.90 >55% EF 2C: 64.30 >55% EF BiP: 64.10 >55% Mitral Valve MV Pk E: 1.18 MV PK A: 1.32 MV Decel Time: 168.00 E/A: 0.90 E'Lateral: 7.51 E'Medial: 6.85 E/E' Med: 17.20 E/E' Lat: 15.70 PHT: 49.00 MVA PHT: 4.49 Decel [place]: 7.03 Aortic Valve AoV Pk Rayray: 1.86 AoV Mn Rayray: 1.37 AoV VTI: 0.37 AoV Pk Grad: 14.00 Aov Mn Grad: 8.00 ANGUS Cont.VTI: 2.12 LVOT LVOT Pk Rayray: 1.13 LVOT Mn Rayray: 0.76 LVOT VTI: 0.23 LVOT Pk Grad: 5.00 LVOT Mn Grad: 3.00 LVOT Diam: 2.10 LVOT Area: 3.46 Diastolic Function MV Pk E: 1.18 MV Pk A: 1.32 E/A: 0.90 E'Medial: 6.85 E/E' Med: 17.20 E' Laterial: 7.51 E/E' Lat: 15.70 Tricuspid Valve TR Pk Rayray: 2.96 TR Pk Grad: 35.00 RA Press: 3.00 RVSP: 38.00 Great Vessels Aorta Sinus of Valsalva: 3.60 2.0-3.5 cm Ao Asc: 3.60 2.1-3.4 cm Pulmonary Valve PV Pk Rayray: 1.03 Peak PV Grad: 4.00 Updated in Other Vendor System with Status of Final Rafi Power MD electronically signed on 10/03/2023 4:13:56 PM with status of Final
--- NOTE | 2023-10-03 06:56 | PC.NURSE ---
per MD Moran he discussed case with cardiology and back up machine operator - per cardiology troponins do not seem to be cardiac in nature - continue levofed drip at starting rate of 0.05mcg/kg/min as BPs are holding steady and HR still remains 96 NSR. report given to Maria Del Carmen DENT
--- NOTE | 2023-10-03 07:02 | PC.NURSE ---
Patient alert and oriented. Reports left sided rib/lung pain that comes and goes. Heparin drip running at 10ml/hr. LR running per order. Patient 93-95% on 14 liters via oxy mask. Daughter at bedside.
--- NOTE | 2023-10-03 07:10 | PC.NURSE ---
Patient titrated down to 13liters via oxy mask, sating 95% at this time. Bio sob noted, bilateral wheezing heard.
--- NOTE | 2023-10-03 07:40 | PC.NURSE ---
Patient titrated down to 12 liters via oxy mask sating 91 %. Patient voided small amount of clear urine into urinal
--- NOTE | 2023-10-03 08:07 | PC.NURSE ---
Per MD stop levo at this time. BP 112/51.
--- NOTE | 2023-10-03 08:46 | PHA.MEDREC ---
Pharmacy Consult ? Medication Reconciliation Pharmacy has completed the medication reconciliation. Spoke to Zahraa (daughter) at patient's bedside and confirm medication list. She does not know the sliding scale for Novolog.
--- NOTE | 2023-10-03 09:34 | PC.NURSE ---
Bedside echo completed, patient with sob or discomfort. vss. daughter at bedside
[2023-10-03 10:21] LABS: PTT Heparin Drip 162.1 SEC (53-77.9)
--- NOTE | 2023-10-03 10:36 | PC.NURSE ---
Heparin drip paused per protocol, redraw ordered for 1115
--- NOTE | 2023-10-03 10:48 | PM.IMHP ---
History of Present Illness Date of Service: 10/03/23 Chief Complaint: chills, shortness of breath This is a 78 year old male with a PMH of insulin dependant DM, CAD s/p multiple stents, COPD/emphysema and chronic respiratory failure on 3L oxygen at baseline, HLD, CHF (EF unknown) and HTN who [place] [facility] on 10/02/23 with complaints of rigors/chills and shortness of breath which began during the evening prior to admission. The history is obtained from the patient and his daughter who is bedside. Translation services are offered, but pt opts for family to translate. Apparently, the patient had been in his usual state of health prior to the events. Prior to the episode, he denies SOB, increasing cough, fevers, fatigue, chest pain. Denies decreased oral intake, nausea/vomiting/diarrhea. Denies abdominal pain. However, the evening before, the patient experienced nausea/vomiting/rigors and chills. Subsequently he had increasing shortness of breath and was noted to be hypoxic. He was afebrile at home. Upon arrival of EMS, the patient was saturating in the 80s on his baseline 3L. He was brought to the ED in a non-rebreather and appeared comfortable. Work up in the ED revealed fevers and imaging studies concerning for pneumonia. The patients ED course was complicated by hypotension requiring Levophed drip. Initial plan was for ICU admission, however, the patient was managed in the ED. He was treated with Levophed drip and now has been weaned off. He is currently on 14L of oxygen and appears to be comfortable. ED course was complicated by NSTEMI for which he has bene initiated on IV heparin, completed a bedside echo and reportedly has been evaluated by cardiology. Review of Systems Review of Systems: Negative except HPI/interval history. [facility] Medical History (Updated 10/03/23 @ 10:56 by Shaun Delgado MD) Hyperlipidemia Hypertension Diabetes mellitus, type 2 Chronic respiratory failure with hypoxia COPD (chronic obstructive pulmonary disease) CKD (chronic kidney disease) CHF (congestive heart failure) Coronary artery disease Family History (Updated 10/03/23 @ 10:56 by Shaun Delgado MD) Other Cancer Surgical History (Updated 10/03/23 @ 03:35 by Rogers Moran MD) S/P coronary artery stent placement Social History Smoked in Last 30 Days: No Use of substances other than those prescribed or required for medical reasons: No Advance Directives: No Advance Directives Information Provided: Yes Meds Allergies Allergy/AdvReac Type Severity Reaction Status Date / Time No Known Allergies Allergy Verified 10/29/21 19:34 Active Medications: Current Medications Acetaminophen (Acetaminophen 325 Mg Tablet) 650 mg PO Q6H PRN PRN Reason: Pain, Mild (Pain Scale 1-3) Aspirin (Aspirin 81 Mg Tab.Chew) 81 mg PO DAILY [facility] Atorvastatin Calcium (Atorvastatin Calcium 80 Mg Tablet) 80 mg PO DAILY [facility] Clopidogrel Bisulfate (Clopidogrel Bisulfate 75 Mg Tablet) 75 mg PO DAILY [facility] Heparin Sodium (Porcine) (Heparin Sodium,Porcine 5,000 Unit/Ml Vial) 3,400 unit 40 unit/kg (3400 unit) IVPUSH PROTOCOL BOLUS PRN; Protocol PRN Reason: 40 unit/kg - Heparin Protocol Heparin Sodium (Porcine) (Heparin Sodium,Porcine 5,000 Unit/Ml Vial) 6,800 unit 80 unit/kg (6800 unit) IVPUSH PROTOCOL BOLUS PRN; Protocol PRN Reason: 80 unit/kg - Heparin Protocol Heparin Sodium/Sodium Chloride (Heparin Sodium,Porcine/1/2ns) 25,000 unit in 250 mls @ 0 mls/hr IVCONT .Q0M [facility]; Protocol Last Titration: 10/03/23 10:33 Dose: 0 units/kg/hr, 0 mls/hr Vancomycin HCl 1,000 mg/ (Sodium Chloride) 270 mls @ 270 mls/hr IV Q24H [facility] Cefepime HCl 1 gm/ Sodium (Chloride) 50 mls @ 100 mls/hr IV Q12H [facility] Insulin Glargine (Insulin Glargine,Hum.Rec.Anlog 100 Unit/Ml 10 Ml Vial) 15 unit SUBCUT BEDTIME [facility] Insulin Human Lispro (Insulin Lispro 100 Unit/Ml 3 Ml Vial) 0 unit SUBCUT QIDACHS [facility]; Protocol Morphine Sulfate (Morphine Sulfate 4 Mg/Ml Cartridge) 2 mg IVPUSH Q4H PRN; Protocol PRN Reason: Pain, Severe (Pain Scale 7-10) Pharmacy Consult (Consult Rx Vancomycin Dosing) 1 each MISCELLANE DAILY PRN PRN Reason: Consult order Sodium Chloride (0.9 % Sodium Chloride Flush 3 Ml Syringe) 3 ml IVFLUSH [facility] Home Medications Medication Instructions Recorded Confirmed Last Taken Type aspirin 81 mg chewable tablet 1 tab PO DAILY 10/03/23 10/03/23 10/02/23 History atorvastatin 80 mg tablet 80 mg PO DAILY 10/03/23 10/03/23 10/02/23 History carvedilol 6.25 mg tablet 6.25 mg PO BID 10/03/23 10/03/23 10/02/23 History clopidogrel 75 mg tablet 75 mg PO DAILY 10/03/23 10/03/23 10/02/23 History empagliflozin 10 mg tablet 10 mg PO DAILY 10/03/23 10/03/23 10/02/23 History (Jardiance) ferrous sulfate 325 mg (65 mg 325 mg PO DAILY 10/03/23 10/03/23 10/02/23 History iron) tablet insulin aspart U-100 100 unit/mL See Protocol subcut DIRECTED 10/03/23 10/03/23 Unknown History (3 mL) subcutaneous pen (Novolog FlexPen U-100 Insulin aspart) insulin glargine 100 unit/mL (3 28 unit subcut BEDTIME 10/03/23 10/03/23 10/02/23 History mL) subcutaneous pen (Lantus Solostar U-100 Insulin) isosorbide mononitrate 60 mg 120 mg PO DAILY 10/03/23 10/03/23 10/02/23 History tablet,extended release 24 hr lisinopril 10 mg tablet 10 mg PO DAILY 10/03/23 10/03/23 10/02/23 History torsemide 10 mg tablet 10 mg PO BID 10/03/23 10/03/23 10/02/23 History umeclidinium 62.5 mcg/actuation 1 inh inhalation DAILY 10/03/23 10/03/23 10/02/23 History blister powder for inhalation (Incruse Ellipta) Physical Exam Vital Signs and Narrative: Vital Signs: Last Vital Signs Temp 98.4 F 10/03/23 08:35 Pulse 100 10/03/23 10:09 Resp 30 H 10/03/23 10:09 BP 140/68 H 10/03/23 10:09 Pulse Ox 90 L 10/03/23 10:09 O2 Del Method Oxymask 10/03/23 10:09 O2 Flow Rate 14 10/03/23 10:09 Oxygen Flow Rate 15 10/02/23 22:41 BMI result Body Mass Index 34.2 Const: Other: Constitutional - Awake and Alert, appears comfortable with increased supplemental oxygen Eyes - PERRLA, EOMI Cardiovascular - S1S2, RRR, No edema Respiratory - Rales bilaterally L > R; lower > upper Gastrointestinal - NT / ND; +BS; No rebound or guarding - No CVA tenderness Extremities - no calf tenderness bilaterally, no swelling Musculoskeletal - Normal inspection, normal ROM Skin - Warm/Dry Neurological - Alert & oriented x3, No focal deficit Psychological - Appropriate affect Results Labs 10/02/23 22:33 10/03/23 03:09 Labs: Laboratory Results - last 24 hr 10/02/23 10/02/23 10/02/23 22:33 22:36 23:11 MCV 88.4 MCH 28.7 MCHC 32.5 RDW 13.4 Plt Count 241 MPV 10.6 Immature Gran % (Auto) 0.5 H Neut % (Auto) 90.8 H Lymph % (Auto) 5.7 L [place] % (Auto) 2.1 Eos % (Auto) 0.6 Baso % (Auto) 0.3 Lymph # (Auto) 1.0 L [place] # (Auto) 0.4 Eos # (Auto) 0.1 Baso # (Auto) 0.1 Abs Immat Gran (auto) 0.09 H Absolute Neuts (auto) 16.2 H Absolute Nucleated RBC 0.000 Nucleated RBC % (auto) 0.0 Smear Tech's Comments VERIFIED PT INR APTT aPTT Heparin Protocol D-Dimer High Sensitivty VBG pH 7.46 H VBG pCO2 27 VBG pO2 60 VBG HCO3 20 L VBG O2 Saturation 92.0 VBG Base Excess -1.8 Anion Gap 17 Estim Creat Clear Calc 27.0 Estimated GFR 31 Random Glucose 147 H Lactic Acid 1.0 Calcium 8.8 Total Bilirubin 0.6 AST 32 ALT 31 Alkaline Phosphatase 96 B-Natriuretic Peptide 75 Total Protein 8.3 H Albumin 3.8 Influenza Type A (PCR) Influenza Type B (PCR) RSV RNA Qual (PCR) SARS-CoV-2 RNA (RT-PCR) 10/02/23 10/03/23 10/03/23 23:37 03:09 09:47 MCV MCH MCHC RDW Plt Count MPV Immature Gran % (Auto) Neut % (Auto) Lymph % (Auto) [place] % (Auto) Eos % (Auto) Baso % (Auto) Lymph # (Auto) [place] # (Auto) Eos # (Auto) Baso # (Auto) Abs Immat Gran (auto) Absolute Neuts (auto) Absolute Nucleated RBC Nucleated RBC % (auto) Smear Tech's Comments PT 17.7 H INR 1.5 H APTT 30.7 aPTT Heparin Protocol 162.1 H* D-Dimer High Sensitivty 660 VBG pH VBG pCO2 VBG pO2 VBG HCO3 VBG O2 Saturation VBG Base Excess Anion Gap 11 L Estim Creat Clear Calc 31.7 Estimated GFR 37 Random Glucose 134 H Lactic Acid Calcium 7.0 L D Total Bilirubin AST ALT Alkaline Phosphatase B-Natriuretic Peptide Total Protein Albumin Influenza Type A (PCR) NEGATIVE Influenza Type B (PCR) NEGATIVE RSV RNA Qual (PCR) NEGATIVE SARS-CoV-2 RNA (RT-PCR) NEGATIVE Imaging Radiologist's Impressions: Impressions Chest X-Ray 10/02/23 23:20 IMPRESSION: 1. New multifocal airspace opacities concerning for an atypical pneumonia. Recommend follow-up imaging to ensure appropriate resolution. 2. Possible trace amount of bilateral pleural fluid. 3. Nonspecific radiopaque densities projecting over the right perihilar region. Chest X-Ray 10/03/23 05:15 IMPRESSION: Interval placement of a right central line in adequate position. No pneumothorax. Increasing consolidation in the lingular/left upper lobe likely pneumonia. Assessment and Plan (1) Severe sepsis: Status: Acute (2) Acute non-ST elevation myocardial infarction (NSTEMI): Status: Acute (3) Acute and chronic respiratory failure: Status: Acute Plan This is a 78 year old male with a PMH of insulin dependant DM, CAD s/p multiple stents, COPD/emphysema and chronic respiratory failure on 3L oxygen at baseline, HLD, CHF (EF unknown) and HTN who presented with respiratory symptoms and is diagnosed with pneumonia, sepsis, respiratory failure and NSTEMI. He will be admitted for further work up. 1. Severe Sepsis / Septic Shock S/P Levophed drip in the ED likely secondary to underlying pneumonia follow vitals and culture data sepsis focus exam completed Patient is obese, sepsis fluid bolus given based on ideal body weight 2. Multifocal pneumonia treated with rocephin/doxy in the ED Given his underlying CAD/DM/CKD, in conjunction with his sepsis, will broaded antibiotics to vancomcyin/cefepime -- renally dosed 3. Acute on chronic respiratory failure with hypoxia secondary to #2 wean O2 as tolerated 4. NSTEMI/CAD s/p PCI x 3 EKG with non-specific T wave changes however, troponin trend 179 -> 823 question type 2 MA, however, given his underlying CAD - will continue IV heparin gtt asa/plavix/statin/hold BB for now given low BP -- initiated when appropriate Will keep the patient on bedrest x 24 hours bedside echo completed cardiology consult requested 5. MAE on CKD3 Baseline SCr unknown, but last value in our system shows 1.38 Prestned with SCr of 2 likely secondary to sepsis / hypotension monitor I/O 6. DM hold orals, use basal + bolus POC QIDAC 7. CHF, unspecified echo completed, await results does not appear to be volume overloaded hold diuretics 8. HLD statin Full Code DVT pptx -- on IV heparin drip for NSTEMI Patient endorses his daughter, Zahraa, as his health care proxy. Pt with severe sepsis, respiratory failure, nstemi and multifocal pneumonia for which he will require IV antibiotics, IV heparin drip x 48 hours, increased supplemental oxygen and specialist consultation. He is expected to be hospitalized for a minimum of 2 midnights and hence will be admitted as inpatient. Quality Stroke Does the patient have a stroke diagnosis?: No VTE Prior VTE?: No VTE Risk Level:: Medical - moderate - high VTE Device Contraindication: Treatment Not Indicated VTE Drug Contraindication: N/A - Med Ordered
[2023-10-03] MEDS: Clopidogrel Bisulfate 75 MG TABLET PO (11:16)
[2023-10-03] MEDS: Atorvastatin Calcium 80 MG TABLET PO (11:16)
[2023-10-03] MEDS: cefEPime HCl 1 GM in 0.9 % Sodium Chloride 50 ML IV ×2 (11:16→22:09)
[2023-10-03] MEDS: Aspirin 81 MG TAB.CHEW PO (11:16)
--- NOTE | 2023-10-03 11:29 | PC.NURSE ---
Levo paused at 8:07am, discontinued by provider
[2023-10-03] MEDS: vancomycin/NS 2,000 MG/500 ML PLAST..BAG 250 MG IV (12:01)
[2023-10-03 12:12] LABS: PTT Heparin Drip 114.4 SEC (53-77.9)
--- NOTE | 2023-10-03 12:15 | PC.NURSE ---
PT HD remains high (114.4) hepain remains on hold, provider aware
--- NOTE | 2023-10-03 12:33 | PHA.PROG ---
Admission Date/Time: October 03, 2023 10:35 Indication: SEPSIS Weight in k.9 kg Adjusted body weight in Kg: Converse body weight in Kg: Obesity Dosing Indication % IBW: Serum Creatinine - Last 168 Hours 10/02/23 10/03/23 22:33 03:09 Creatinine 2.09 H 1.78 H Estimated CrCl and GFR - Last 168 Hours 10/02/23 10/03/23 22:33 03:09 Estim Creat Clear Calc 27.0 31.7 Estimated GFR 31 37 Vancomycin Loading Dose: 2000 Current Vancomycin Dosing Regimen: 1000 Q24H Vancomycin Monitoring using AUC goal of 400 - 600 range with trough as surrogate marker: AUC 529, TROUGH 17.4 Date and Time for next Vancomycin Level to be drawn: 10/05 @1000 Pharmacist Comments on Vancomycin Plan: Vancomycin dosing will take advantage of [employer] as a clinical decision support tool that uses Bayesian modeling to calculate individual patient's pharmacokinetic parameters and forecast the patient's drug concentration time course with the target goal AUC 24 range of 400 - 600 mg/L/hr.
[2023-10-03 12:40] LABS: Troponin-I High Sensitivity 1247.5 ng/L (<3.5-35.0)
[2023-10-03 12:44] LABS: Glucose, Whole Blood 156 mg/dL (60-115)
--- NOTE | 2023-10-03 12:45 | PC.NURSE ---
Provider notified of elevated trop of 1247.6
--- NOTE | 2023-10-03 13:00 | PC.NURSE ---
Alert and oriented, denies chest pain or sob, HR 98, 95% on 14 liters oxymask. Declined insulin stating he is only eating pudding for lunch. Jonathon at bedside
[2023-10-03 13:11] LABS: Creatinine Clr Calc Pharmacy 30.5; Estimated Glomerular Filt Rate 35
--- NOTE | 2023-10-03 13:14 | PC.NURSE ---
Per MD no repeat ekg needed as patient is not having chest pain
--- NOTE | 2023-10-03 13:22 | PC.NURSE ---
Report given to accepting unit, transport notified
--- NOTE | 2023-10-03 13:43 | P.CONCA_ITS ---
History of Present Illness History of Present Illness Date of Service: 10/03/23 Requesting physician: Rogers Moran Consult reason: troponin elevation Chief complaint: Rigors Narrative: I was consulted to see Misael in cardiology consultation today. History was obtained from the patient as well as patient's at bedside. Patient came to the hospital with feeling of chills and felt feverish and then started getting short of breath since last evening. Patient came to the emergency room at on 10. Was noted to be febrile in the emergency room with bilateral infiltrates consistent with pneumonia. Initial troponin was in 180 range, subsequent troponin at 08:20 3-11/27 troponin at 12:47. Cardiology consult was sought because of elevated troponins and patient's prior cardiac history. Patient was treated with IV heparin. Patient also treated with broad-spectrum antibiotics for his pneumonia. Patient has underlying history of CAD with prior stenting for myocardial infarction. Symptoms associated with acute coronary syndrome were chest discomfort with central retrosternal chest pressure. She has not had any symptoms in the past after the stenting. He has been taking all his medications regularly. He was admitted with chest pressure last spring at [facility] and was noted to be in diastolic heart failure. He did have a cardiac catheterization at that time at shown nonobstructive CAD as per the . Do not have the records of the same. He takes all his medications regularly. Admission BNP within normal limits. EKG does not show any acute ST T wave changes. Echocardiogram done at bedside showed preserved LV systolic function without any significant regional wall motion abnormality that will suggest any new myocardial ischemia. Patient developed hypertension that required vasopressor support. However this is not been turned off. Review of Systems 2 Constitutional: Constitutional: Reports chills and Reports fever(s) Eyes: Eyes: Reports no additional eye complaints ENT: Reports system reviewed and no additional complaints, except as documented Cardiovascular: Cardiovascular: Denies lightheadedness, Denies Loss of Consciousness, Denies palpitations, Reports dyspnea and Denies orthopnea Respiratory: Respiratory: Reports cough, Reports pain on inspiration and Reports dyspnea Gastrointestinal: Gastrointestinal: Reports no additional gastrointestinal complaints Musculoskeletal: Musculoskeletal: Reports no additional musculoskeletal complaints Integumentary/Breasts: Skin/Breast: Reports system reviewed and no additional complaints, except as docu Neurologic: Reports system reviewed and no additional complaints, except as documented Psychiatric: Psychiatric: Reports no additional psychiatric complaints Endocrine: Endocrine: Reports no additional endocrine complaints and Denies palpitations [facility] Past Medical History Medical History Hyperlipidemia Hypertension Diabetes mellitus, type 2 Chronic respiratory failure with hypoxia COPD (chronic obstructive pulmonary disease) CKD (chronic kidney disease) CHF (congestive heart failure) Coronary artery disease Family History Family History Other Cancer Surgical History Surgical History S/P coronary artery stent placement Social History Social History Smoked in Last 30 Days: No Use of substances other than those prescribed or required for medical reasons: No Advance Directives: No Advance Directives Information Provided: Yes Meds Allergies Allergy/AdvReac Type Severity Reaction Status Date / Time No Known Allergies Allergy Verified 10/29/21 19:34 Active Medications: Current Medications Acetaminophen (Acetaminophen 325 Mg Tablet) 650 mg PO Q6H PRN PRN Reason: Pain, Mild (Pain Scale 1-3) Aspirin (Aspirin 81 Mg Tab.Chew) 81 mg PO DAILY [facility] Last Admin: 10/03/23 11:16 Dose: 81 mg Atorvastatin Calcium (Atorvastatin Calcium 80 Mg Tablet) 80 mg PO DAILY [facility] Last Admin: 10/03/23 11:16 Dose: 80 mg Clopidogrel Bisulfate (Clopidogrel Bisulfate 75 Mg Tablet) 75 mg PO DAILY [facility] Last Admin: 10/03/23 11:16 Dose: 75 mg Heparin Sodium (Porcine) (Heparin Sodium,Porcine 5,000 Unit/Ml Vial) 3,400 unit 40 unit/kg (3400 unit) IVPUSH PROTOCOL BOLUS PRN; Protocol PRN Reason: 40 unit/kg - Heparin Protocol Heparin Sodium (Porcine) (Heparin Sodium,Porcine 5,000 Unit/Ml Vial) 6,800 unit 80 unit/kg (6800 unit) IVPUSH PROTOCOL BOLUS PRN; Protocol PRN Reason: 80 unit/kg - Heparin Protocol Heparin Sodium/Sodium Chloride (Heparin Sodium,Porcine/1/2ns) 25,000 unit in 250 mls @ 0 mls/hr IVCONT .Q0M ANDREW; Protocol Last Titration: 10/03/23 12:15 Dose: 0 units/kg/hr, 0 mls/hr Cefepime HCl 1 gm/ Sodium (Chloride) 50 mls @ 100 mls/hr IV Q12H [facility] Last Infusion: 10/03/23 12:34 Dose: Infused Vancomycin HCl 1,000 mg/ (Sodium Chloride) 270 mls @ 270 mls/hr IV Q24H [facility] Insulin Glargine (Insulin Glargine,Hum.Rec.Anlog 100 Unit/Ml 10 Ml Vial) 15 unit SUBCUT BEDTIME [facility] Insulin Human Lispro (Insulin Lispro 100 Unit/Ml 3 Ml Vial) 0 unit SUBCUT QIDACHS [facility]; Protocol Last Admin: 10/03/23 13:03 Dose: Not Given Morphine Sulfate (Morphine Sulfate 4 Mg/Ml Cartridge) 2 mg IVPUSH Q4H PRN; Protocol PRN Reason: Pain, Severe (Pain Scale 7-10) Pharmacy Consult (Consult Rx Vancomycin Dosing) 1 each MISCELLANE DAILY PRN PRN Reason: Consult order Sodium Chloride (0.9 % Sodium Chloride Flush 3 Ml Syringe) [facility] Medications Medication Instructions Recorded Confirmed Last Taken Type aspirin 81 mg chewable tablet 1 tab PO DAILY 10/03/23 10/03/23 10/02/23 History atorvastatin 80 mg tablet 80 mg PO DAILY 10/03/23 10/03/23 10/02/23 History carvedilol 6.25 mg tablet 6.25 mg PO BID 10/03/23 10/03/23 10/02/23 History clopidogrel 75 mg tablet 75 mg PO DAILY 10/03/23 10/03/23 10/02/23 History empagliflozin 10 mg tablet 10 mg PO DAILY 10/03/23 10/03/23 10/02/23 History (Jardiance) ferrous sulfate 325 mg (65 mg 325 mg PO DAILY 10/03/23 10/03/23 10/02/23 History iron) tablet insulin aspart U-100 100 unit/mL See Protocol subcut DIRECTED 10/03/23 10/03/23 Unknown History (3 mL) subcutaneous pen (Novolog FlexPen U-100 Insulin aspart) insulin glargine 100 unit/mL (3 28 unit subcut BEDTIME 10/03/23 10/03/23 10/02/23 History mL) subcutaneous pen (Lantus Solostar U-100 Insulin) isosorbide mononitrate 60 mg 120 mg PO DAILY 10/03/23 10/03/23 10/02/23 History tablet,extended release 24 hr lisinopril 10 mg tablet 10 mg PO DAILY 10/03/23 10/03/23 10/02/23 History torsemide 10 mg tablet 10 mg PO BID 10/03/23 10/03/23 10/02/23 History umeclidinium 62.5 mcg/actuation 1 inh inhalation DAILY 10/03/23 10/03/23 10/02/23 History blister powder for inhalation (Incruse Ellipta) Physical Exam 2 Vital Signs: Vital Signs: Last Vital Signs Temp 98.4 F 10/03/23 08:35 Pulse 108 H 10/03/23 13:02 Resp 22 H 10/03/23 13:02 BP 147/66 H 10/03/23 13:02 Pulse Ox 94 10/03/23 13:02 O2 Del Method Oxymask 10/03/23 13:02 O2 Flow Rate 14 10/03/23 10:09 Oxygen Flow Rate 15 10/02/23 22:41 BMI result Body Mass Index 34.2 Const: General: cooperative, alert, awake, in distress mild and respiratory and ill appearing Nutritional Appearance: obese Orientation/consciousness: patient oriented x3 HEENT: Head: Yes normocephalic and Yes atraumatic Neck: Neck: Yes trachea midline, Yes supple and Yes no JVD Resp: Effort & Inspection: decreased respiratory effort Auscultation: clear to auscultation bilaterally, no rales, no wheezes and diminished lung sounds Cardio: Jugular venous distension: no JVD Rate: regular rate Rhythm: r egular rhythm Heart sounds: S1 normal heart sound present, S2 normal heart sound present, no click, no gallops, no murmurs and no rubs GI: Auscultation: normal bowel sounds Skin: General skin exam: no rashes or lesions noted Neuro: General: patient oriented x3 and no focal motor deficits Extrem: General: Yes no clubbing, cyanosis or edema Objective Labs and Meds 10/02/23 22:33 10/03/23 12:05 Lab results: Laboratory Results - last 24 hr 10/02/23 10/02/23 10/02/23 22:33 22:36 23:11 WBC 17.8 H RBC 5.19 Hgb 14.9 Hct 45.9 MCV 88.4 MCH 28.7 MCHC 32.5 RDW 13.4 Plt Count 241 MPV 10.6 Immature Gran % (Auto) 0.5 H Neut % (Auto) 90.8 H Lymph % (Auto) 5.7 L [place] % (Auto) 2.1 Eos % (Auto) 0.6 Baso % (Auto) 0.3 Lymph # (Auto) 1.0 L [place] # (Auto) 0.4 Eos # (Auto) 0.1 Baso # (Auto) 0.1 Abs Immat Gran (auto) 0.09 H Absolute Neuts (auto) 16.2 H Absolute Nucleated RBC 0.000 Nucleated RBC % (auto) 0.0 Smear Tech's Comments VERIFIED Hold Purple Top PT INR APTT aPTT Heparin Protocol D-Dimer High Sensitivty VBG pH 7.46 H VBG pCO2 27 VBG pO2 60 VBG HCO3 20 L VBG O2 Saturation 92.0 VBG Base Excess -1.8 Sodium 135 Potassium 5.6 H Chloride 103 Carbon Dioxide 21 L Anion Gap 17 BUN 69 H Creatinine 2.09 H Estim Creat Clear Calc 27.0 Estimated GFR 31 POC Glucose Random Glucose 147 H Lactic Acid 1.0 Calcium 8.8 Total Bilirubin 0.6 AST 32 ALT 31 Alkaline Phosphatase 96 Troponin I High Sens 179.1 H* B-Natriuretic Peptide 75 Total Protein 8.3 H Albumin 3.8 Hold Yellow Top Influenza Type A (PCR) Influenza Type B (PCR) RSV RNA Qual (PCR) SARS-CoV-2 RNA (RT-PCR) 10/02/23 10/03/23 10/03/23 23:37 02:14 03:09 WBC RBC Hgb Hct MCV MCH MCHC RDW Plt Count MPV Immature Gran % (Auto) Neut % (Auto) Lymph % (Auto) [place] % (Auto) Eos % (Auto) Baso % (Auto) Lymph # (Auto) [place] # (Auto) Eos # (Auto) Baso # (Auto) Abs Immat Gran (auto) Absolute Neuts (auto) Absolute Nucleated RBC Nucleated RBC % (auto) Smear Tech's Comments Hold Purple Top PT 17.7 H INR 1.5 H APTT 30.7 aPTT Heparin Protocol D-Dimer High Sensitivty 660 VBG pH VBG pCO2 VBG pO2 VBG HCO3 VBG O2 Saturation VBG Base Excess Sodium 138 Potassium 4.3 D Chloride 113 H Carbon Dioxide 18 L Anion Gap 11 L BUN 65 H Creatinine 1.78 H Estim Creat Clear Calc 31.7 Estimated GFR 37 POC Glucose Random Glucose 134 H Lactic Acid Calcium 7.0 L D Total Bilirubin AST ALT Alkaline Phosphatase Troponin I High Sens 823.2 H* D B-Natriuretic Peptide Total Protein Albumin Hold Yellow Top Influenza Type A (PCR) NEGATIVE Influenza Type B (PCR) NEGATIVE RSV RNA Qual (PCR) NEGATIVE SARS-CoV-2 RNA (RT-PCR) NEGATIVE 10/03/23 10/03/23 10/03/23 09:47 11:16 12:05 WBC RBC Hgb Hct MCV MCH MCHC RDW Plt Count MPV Immature Gran % (Auto) Neut % (Auto) Lymph % (Auto) [place] % (Auto) Eos % (Auto) Baso % (Auto) Lymph # (Auto) [place] # (Auto) Eos # (Auto) Baso # (Auto) Abs Immat Gran (auto) Absolute Neuts (auto) Absolute Nucleated RBC Nucleated RBC % (auto) Smear Tech's Comments Hold Purple Top PT INR APTT aPTT Heparin Protocol 162.1 H* 114.4 H* D D-Dimer High Sensitivty VBG pH VBG pCO2 VBG pO2 VBG HCO3 VBG O2 Saturation VBG Base Excess Sodium Potassium Chloride Carbon Dioxide Anion Gap BUN Creatinine 1.85 H Estim Creat Clear Calc 30.5 Estimated GFR 35 POC Glucose Random Glucose Lactic Acid Calcium Total Bilirubin AST ALT Alkaline Phosphatase Troponin I High Sens 1247.5 H* D B-Natriuretic Peptide Total Protein Albumin Hold Yellow Top Influenza Type A (PCR) Influenza Type B (PCR) RSV RNA Qual (PCR) SARS-CoV-2 RNA (RT-PCR) 10/03/23 10/03/23 12:39 13:24 WBC RBC Hgb Hct MCV MCH MCHC RDW Plt Count MPV Immature Gran % (Auto) Neut % (Auto) Lymph % (Auto) [place] % (Auto) Eos % (Auto) Baso % (Auto) Lymph # (Auto) [place] # (Auto) Eos # (Auto) Baso # (Auto) Abs Immat Gran (auto) Absolute Neuts (auto) Absolute Nucleated RBC Nucleated RBC % (auto) Smear Tech's Comments Hold Purple Top SEE NOTE PT INR APTT aPTT Heparin Protocol D-Dimer High Sensitivty VBG pH VBG pCO2 VBG pO2 VBG HCO3 VBG O2 Saturation VBG Base Excess Sodium Potassium Chloride Carbon Dioxide Anion Gap BUN Creatinine Estim Creat Clear Calc Estimated GFR POC Glucose 156 H Random Glucose Lactic Acid Calcium Total Bilirubin AST ALT Alkaline Phosphatase Troponin I High Sens B-Natriuretic Peptide Total Protein Albumin Hold Yellow Top See Note Influenza Type A (PCR) Influenza Type B (PCR) RSV RNA Qual (PCR) SARS-CoV-2 RNA (RT-PCR) EKG shows sinus tachycardia with low-voltage QRS. Imaging Radiologist's impression: Impressions Chest X-Ray 10/02/23 23:20 IMPRESSION: 1. New multifocal airspace opacities concerning for an atypical pneumonia. Recommend follow-up imaging to ensure appropriate resolution. 2. Possible trace amount of bilateral pleural fluid. 3. Nonspecific radiopaque densities projecting over the right perihilar region. Chest X-Ray 10/03/23 05:15 IMPRESSION: Interval placement of a right central line in adequate position. No pneumothorax. Increasing consolidation in the lingular/left upper lobe likely pneumonia. Assessment and Plan (1) Acute non-ST elevation myocardial infarction (NSTEMI): Status: Acute Acute NSTEMI with no clear cardiac symptoms mostly symptoms related to pneumonia and respiratory failure with patient with prior chronic respiratory failure with COPD requiring oxygen with elevated troponins most likely is suggestive secondary myocardial infarction related to hypoxemia and medical illness. He does have prior history of coronary artery disease. Likelihood of primary acute coronary syndrome is low although I would consider treating with IV heparin for 48 hours. Continue supportive care. Continue low-dose aspirin as well as high- intensity statin therapy. Continue isosorbide and carvedilol therapy as well as. Continue treat hypoxemia aggressively. Continue treat underlying pneumonia well. Clinically does appear to be in heart failure. Continue his chronic heart failure medications. Will repeat echocardiogram performed officially. Will continue to follow with you Procedures Date of Service Date of Service: 10/03/23
[2023-10-03 13:51] LABS: PTT Heparin Drip 46.9 SEC (53-77.9)
[2023-10-03] MEDS: carvediloL 3.125 MG TABLET PO ×2 (14:16→20:17)
[2023-10-03 16:33] LABS: Glucose, Whole Blood 180 mg/dL (60-115)
[2023-10-03] MEDS: Insulin Lispro 100 UNIT/ML 3 ML VIAL SUBCUT (17:08)
[2023-10-03] MEDS: 0.9 % Sodium Chloride Flush 3 ML SYRINGE IVFLUSH ×2 (17:09→20:19)
[2023-10-03 19:55] LABS: Glucose, Whole Blood 135 mg/dL (60-115)
[2023-10-03] MEDS: Insulin Glargine,Hum.rec.anlog 100 UNIT/ML 10 ML VIAL 15 UNIT SUBCUT (20:17)
[2023-10-03 20:57] LABS: PTT Heparin Drip 51.7 SEC (53-77.9)
[2023-10-03] MEDS: Heparin Sodium,Porcine 5,000 UNIT/ML VIAL 3400 UNIT IVPUSH (22:07)
[2023-10-04 03:25] VITALS: BP 121/50; PULSE 98; RESP 20; TEMP 36.2; O2SAT 93
[2023-10-04] MEDS: Heparin Sodium,Porcine/1/2NS 25,000 UNIT/250 ML IV.SOLN 8.31 UNIT IVCONT (03:53)
[2023-10-04 04:24] LABS: Hematocrit 38.6 % (42.0-52.0); Hemoglobin 12.5 g/dl (14.0-18.0); Mean Corpuscular HGB Conc 32.4 g/dl (31.0-36.0); Mean Corpuscular Hemoglobin 28.8 pg (27.0-33.0); Mean Corpuscular Volume 88.9 fL (80.0-98.0); Mean Platelet Volume 10.5 fL (9.4-12.4); Platelet Count 158 X10*3/uL (160-400); Red Blood Count 4.34 X10*6/uL (4.60-5.80); Red Cell Distribution Width 13.8 % (11.0-16.0); White Blood Count 23.9 X10*3/uL (4.8-10.8)
[2023-10-04 04:40] LABS: Anion Gap 13 (12-20); Blood Urea Nitrogen 50 mg/dL (9-16); Calcium 7.7 mg/dL (8.4-10.2); Carbon Dioxide 19 mmol/L (22-29); Chloride 114 mmol/L (96-108); Creatinine Clr Calc Pharmacy 38.4; Estimated Glomerular Filt Rate 46; Glucose Random 124 mg/dL (60-115); Potassium 3.9 mmol/L (3.3-5.1); Sodium 142 mmol/L (135-145)
[2023-10-04 04:41] LABS: PTT Heparin Drip 100.7 SEC (53-77.9)
[2023-10-04 07:22] LABS: Glucose, Whole Blood 114 mg/dL (60-115)
[2023-10-04 08:00] VITALS: BP 139/54; PULSE 100; RESP 22; TEMP 36.7; O2SAT 95
[2023-10-04] MEDS: Aspirin 81 MG TAB.CHEW PO (08:31)
[2023-10-04] MEDS: Clopidogrel Bisulfate 75 MG TABLET PO (08:31)
[2023-10-04] MEDS: Atorvastatin Calcium 80 MG TABLET PO (08:31)
[2023-10-04] MEDS: 0.9 % Sodium Chloride Flush 3 ML SYRINGE IVFLUSH ×3 (08:31→21:55)
[2023-10-04] MEDS: carvediloL 3.125 MG TABLET PO (08:31)
--- NOTE | 2023-10-04 08:56 | P.PNIM_ITS ---
Subjective Subjective Date of Service: 10/04/23 Interval History: seen and examined this AM with [employer] services pt denies chest pain sob improving denies productive cough Review of Systems Negative except HPI/interval history. Physical Exam 2 Vital Signs: Vital Signs: Last Vital Signs Temp 98.0 F 10/04/23 08:00 Pulse 100 10/04/23 08:00 Resp 22 H 10/04/23 08:00 BP 139/54 L 10/04/23 08:00 Pulse Ox 95 10/04/23 08:00 O2 Del Method Oxymask 10/04/23 08:00 O2 Flow Rate 14 10/04/23 08:00 Oxygen Flow Rate 15 10/02/23 22:41 BMI result Body Mass Index 34.2 Const: Other: General - no acute distress, appears comfortable Cardiovascular - regular rate and rhythm, S1-S2 Lungs - scatttered rales, breathing comfortably on 14L Abdomen - soft, nontender, no rebound or guarding Extremities - no edema bilaterally Neuro - awake and alert, no focal deficits Objective Data Active Medications Acetaminophen (Acetaminophen 325 Mg Tablet) 650 mg PO Q6H PRN PRN Reason: Pain, Mild (Pain Scale 1-3) Aspirin (Aspirin 81 Mg Tab.Chew) 81 mg PO DAILY [facility] Last Admin: 10/04/23 08:31 Dose: 81 mg Documented By: LOLA Atorvastatin Calcium (Atorvastatin Calcium 80 Mg Tablet) 80 mg PO DAILY [facility] Last Admin: 10/04/23 08:31 Dose: 80 mg Documented By: LOLA Carvedilol (Carvedilol 3.125 Mg Tablet) 3.125 mg PO BID [facility]; Protocol Last Admin: 10/04/23 08:31 Dose: 3.125 mg Documented By: LOLA Clopidogrel Bisulfate (Clopidogrel Bisulfate 75 Mg Tablet) 75 mg PO DAILY [facility] Last Admin: 10/04/23 08:31 Dose: 75 mg Documented By: LOLA Heparin Sodium (Porcine) (Heparin Sodium,Porcine 5,000 Unit/Ml Vial) 3,400 unit 40 unit/kg (3400 unit) IVPUSH PROTOCOL BOLUS PRN; Protocol PRN Reason: 40 unit/kg - Heparin Protocol Last Admin: 10/03/23 22:07 Dose: 3,400 unit Documented By: ILYA Heparin Sodium (Porcine) (Heparin Sodium,Porcine 5,000 Unit/Ml Vial) 6,800 unit 80 unit/kg (6800 unit) IVPUSH PROTOCOL BOLUS PRN; Protocol PRN Reason: 80 unit/kg - Heparin Protocol Heparin Sodium/Sodium Chloride (Heparin Sodium,Porcine/1/2ns) 25,000 unit in 250 mls @ 0 mls/hr IVCONT .Q0M [facility]; Protocol Last Titration: 10/04/23 06:04 Dose: 6.78 units/kg/hr, 5.76 mls/hr Documented By: ILYA Co-signed By: KVNG Cefepime HCl 1 gm/ Sodium (Chloride) 50 mls @ 100 mls/hr IV Q12H [facility] Last Infusion: 10/03/23 22:39 Dose: Infused Documented By: ILYA Vancomycin HCl 1,000 mg/ (Sodium Chloride) 270 mls @ 270 mls/hr IV Q24H [facility] Influenza Virus Vaccine (Flu Vacc [id number](6mos Up)/Pf 0.5 Ml Syringe) 0.5 ml IM .ONCE ONE Stop: 10/04/23 09:01 Last Admin: 10/04/23 08:32 Dose: 0.5 ml Documented By: LOLA Insulin Glargine (Insulin Glargine,Hum.Rec.Anlog 100 Unit/Ml 10 Ml Vial) 15 unit SUBCUT BEDTIME [facility] Last Admin: 10/03/23 20:17 Dose: 15 unit Documented By: ILYA Insulin Human Lispro (Insulin Lispro 100 Unit/Ml 3 Ml Vial) 0 unit SUBCUT QIDACHS [facility]; Protocol Last Admin: 10/04/23 08:33 Dose: Not Given Documented By: LOLA Non-Admin Reason: No Insulin Coverage Morphine Sulfate (Morphine Sulfate 4 Mg/Ml Cartridge) 2 mg IVPUSH Q4H PRN; Protocol PRN Reason: Pain, Severe (Pain Scale 7-10) Pharmacy Consult (Consult Rx Vancomycin Dosing) 1 each MISCELLANE DAILY PRN PRN Reason: Consult order Sodium Chloride (0.9 % Sodium Chloride Flush 3 Ml Syringe) 3 ml IVFLUSH QSHIFT [facility] Last Admin: 10/04/23 08:31 Dose: 3 ml Documented By: LOLA Labs 10/04/23 04:16 10/04/23 04:16 Labs: Laboratory Results - last 24 hr 10/03/23 10/03/23 10/03/23 09:47 11:16 12:05 MCV MCH MCHC RDW Plt Count MPV Absolute Nucleated RBC Nucleated RBC % (auto) Hold Purple Top aPTT Heparin Protocol 162.1 H* 114.4 H* D Anion Gap Estim Creat Clear Calc 30.5 Estimated GFR 35 POC Glucose Random Glucose Calcium Hold Yellow Top 10/03/23 10/03/23 10/03/23 12:39 13:18 13:24 MCV MCH MCHC RDW Plt Count MPV Absolute Nucleated RBC Nucleated RBC % (auto) Hold Purple Top SEE NOTE aPTT Heparin Protocol 46.9 L D Anion Gap Estim Creat Clear Calc Estimated GFR POC Glucose 156 H Random Glucose Calcium Hold Yellow Top See Note 10/03/23 10/03/23 10/03/23 16:29 19:51 20:16 MCV MCH MCHC RDW Plt Count MPV Absolute Nucleated RBC Nucleated RBC % (auto) Hold Purple Top aPTT Heparin Protocol 51.7 L Anion Gap Estim Creat Clear Calc Estimated GFR POC Glucose 180 H 135 H Random Glucose Calcium Hold Yellow Top 10/04/23 10/04/23 04:16 07:15 MCV 88.9 MCH 28.8 MCHC 32.4 RDW 13.8 Plt Count 158 L D MPV 10.5 Absolute Nucleated RBC 0.000 Nucleated RBC % (auto) 0.0 Hold Purple Top aPTT Heparin Protocol 100.7 H D Anion Gap 13 Estim Creat Clear Calc 38.4 Estimated GFR 46 POC Glucose 114 Random Glucose 124 H Calcium 7.7 L D Hold Yellow Top Microbiology Microbiology Results: Microbiology 10/02/23 23:07 Blood Culture - Preliminary Blood - Venous No growth after 24 hours. 10/02/23 22:36 Blood Culture - Preliminary Blood - Venous No growth after 24 hours. Assessment and Plan (1) Acute non-ST elevation myocardial infarction (NSTEMI): Status: Acute Plan This is a 78 year old male with a PMH of insulin dependant DM, CAD s/p multiple stents, COPD/emphysema and chronic respiratory failure on 3L oxygen at baseline, HLD, CHF (EF unknown) and HTN who presented with respiratory symptoms and is diagnosed with pneumonia, sepsis, respiratory failure and NSTEMI. He will be admitted for further work up. 1. Severe Sepsis / Septic Shock resolved S/P Levophed drip in the ED likely secondary to underlying pneumonia continue IV vancomcyin/cefepime - day #2 2. Multifocal pneumonia antibiotics as above 3. Acute on chronic respiratory failure with hypoxia wean as tolerating, currently on 14L 4. NSTEMI/CAD s/p PCI x 3 trend trop echo completed -- normal LV with impaired relaxation; RMWA in the basal inferior and basal inferoseptal segments continue IV heparin cardiology on consult add imdur (starting at 60, increase to home dose tomorrow if stable); increase coreg to home dose 5. MAE on CKD3 Improving towards baseline continue monitoring renal function 6. DM hold orals, use basal + bolus POC QIDAC 7. CHF, unspecified echo completed, await results does not appear to be volume overloaded hold diuretics 8. HLD statin Full Code DVT pptx -- on IV heparin drip for NSTEMI Patient endorses his daughter, Zahraa, as his health care proxy. Need for continued hospitalization: continued treatment for NSTEMI with IV heparin, remains on increased supplemental o2 from baseline, needs IV antibiotics for pneumonia Quality Stroke Does the patient have a stroke diagnosis?: No VTE Prior VTE?: No VTE Risk Level:: Medical - moderate - high VTE Device Contraindication: Treatment Not Indicated VTE Drug Contraindication: N/A - Med Ordered
[2023-10-04 09:17] LABS: Troponin-I High Sensitivity 1038.3 ng/L (<3.5-35.0)
--- NOTE | 2023-10-04 09:49 | MHC.CM.PN ---
IMM (Ukrainian) 10/04/23, CM met with pt. with a educational interpreter. He lives with his and daughter, and they are [employer] and provide home health care for him. He has medical equipment at home of: special bed, O2, walker, shower chair, and a W/C which he has just in case he needs it. He has a nurse that comes to the home once a month, [facility] from [facility]. Family can transport him home. CM to follow and assist with DC planning.
[2023-10-04] MEDS: Isosorbide Mononitrate 60 MG TAB.ER.24H PO (09:53)
[2023-10-04 11:16] LABS: Glucose, Whole Blood 127 mg/dL (60-115)
[2023-10-04 11:36] VITALS: BP 134/63; PULSE 94; RESP 18; TEMP 36.2; O2SAT 90
--- NOTE | 2023-10-04 12:09 | PM.PNCARD ---
Subjective Subjective Date of Service: 10/04/23 Principal diagnosis: Respiratory failure, NSTEMI Interval history: Patient denies any chest pain. He says breathing is better. Currently on lower level of oxygen but still requiring more than he uses at home. Denies any fever or chills. Review of Systems Constitutional: Reports no additional constitutional complaints Cardiovascular: Reports no additional cardiovascular complaints and Reports dyspnea Respiratory: Reports dyspnea Gastrointestinal: Reports no additional gastrointestinal complaints Musculoskeletal: Reports no additional musculoskeletal complaints Physical Exam Vital Signs: Last Vital Signs Temp 97.1 F 10/04/23 11:36 Pulse 94 10/04/23 11:36 Resp 18 10/04/23 11:36 BP 134/63 10/04/23 11:36 Pulse Ox 90 L 10/04/23 11:36 O2 Del Method Nasal Cannula 10/04/23 11:36 O2 Flow Rate 9 10/04/23 11:36 Oxygen Flow Rate 15 10/02/23 22:41 BMI result Body Mass Index 34.2 Const General: cooperative, alert, awake, in distress mild and respiratory and ill appearing Nutritional Appearance: obese Orientation/consciousness: patient oriented x3 HEENT Head: Yes normocephalic and Yes atraumatic Neck Neck: Yes trachea midline, Yes supple and Yes no JVD Resp Effort & Inspection: decreased respiratory effort Auscultation: clear to auscultation bilaterally, no rales, no wheezes and diminished lung sounds Cardio Jugular venous distension: no JVD Rate: regular rate Rhythm: regular rhythm Heart sounds: S1 normal heart sound present, S2 normal heart sound present, no click, no gallops, no murmurs and no rubs GI Auscultation: normal bowel sounds Skin General skin exam: no rashes or lesions noted Neuro General: patient oriented x3 and no focal motor deficits Extrem General: Yes no clubbing, cyanosis or edema Objective Labs and Meds 10/04/23 04:16 10/04/23 04:16 Lab results: Laboratory Results - last 24 hr 10/03/23 10/03/23 10/03/23 11:16 12:05 12:39 WBC RBC Hgb Hct MCV MCH MCHC RDW Plt Count MPV Absolute Nucleated RBC Nucleated RBC % (auto) Hold Purple Top aPTT Heparin Protocol 114.4 H* D Sodium Potassium Chloride Carbon Dioxide Anion Gap BUN Creatinine 1.85 H Estim Creat Clear Calc 30.5 Estimated GFR 35 POC Glucose 156 H Random Glucose Calcium Troponin I High Sens 1247.5 H* D Hold Yellow Top 10/03/23 10/03/23 10/03/23 13:18 13:24 16:29 WBC RBC Hgb Hct MCV MCH MCHC RDW Plt Count MPV Absolute Nucleated RBC Nucleated RBC % (auto) Hold Purple Top SEE NOTE aPTT Heparin Protocol 46.9 L D Sodium Potassium Chloride Carbon Dioxide Anion Gap BUN Creatinine Estim Creat Clear Calc Estimated GFR POC Glucose 180 H Random Glucose Calcium Troponin I High Sens Hold Yellow Top See Note 10/03/23 10/03/23 10/04/23 19:51 20:16 04:16 WBC 23.9 H RBC 4.34 L Hgb 12.5 L Hct 38.6 L MCV 88.9 MCH 28.8 MCHC 32.4 RDW 13.8 Plt Count 158 L D MPV 10.5 Absolute Nucleated RBC 0.000 Nucleated RBC % (auto) 0.0 Hold Purple Top aPTT Heparin Protocol 51.7 L 100.7 H D Sodium 142 Potassium 3.9 Chloride 114 H Carbon Dioxide 19 L Anion Gap 13 BUN 50 H Creatinine 1.47 H Estim Creat Clear Calc 38.4 Estimated GFR 46 POC Glucose 135 H Random Glucose 124 H Calcium 7.7 L D Troponin I High Sens 1038.3 H* Hold Yellow Top 10/04/23 10/04/23 07:15 11:01 WBC RBC Hgb Hct MCV MCH MCHC RDW Plt Count MPV Absolute Nucleated RBC Nucleated RBC % (auto) Hold Purple Top aPTT Heparin Protocol Sodium Potassium Chloride Carbon Dioxide Anion Gap BUN Creatinine Estim Creat Clear Calc Estimated GFR POC Glucose 114 127 H Random Glucose Calcium Troponin I High Sens Hold Yellow Top Progress Note: A&P Assessment and plan (1) Acute non-ST elevation myocardial infarction (NSTEMI): Status: Acute Assessment and Plan: NSTEMI related to hypoxemia and acute pulmonary condition in the setting of known underlying CAD. Clinically having no chest pain syndrome. Echocardiogram did not show any new wall motion abnormality. Continue IV heparin for 1 more day. In the long run continue dual antiplatelet therapy as well as high-intensity statin therapy as well as therapy with Coreg and isosorbide. Will require outpatient myocardial perfusion imaging. Can follow-up with his own senior quantity surveyor for outpatient workup. Will sign of the case at this point time. Thank you for allowing me to partake in his care Time Spent With Patient Time: Total time managing care of this patient today ____ minutes. Progress Note: Quality Stroke Does the patient have a stroke diagnosis?: No Procedures Date of Service Date of Service: 10/04/23
[2023-10-04] MEDS: cefEPime HCl 1 GM in 0.9 % Sodium Chloride 50 ML IV ×2 (12:18→23:25)
[2023-10-04] MEDS: vancomycin HCL 1,000 MG in 0.9 % Sodium Chloride 250 ML 270 MG IV (12:18)
[2023-10-04 13:27] LABS: PTT Heparin Drip 48.7 SEC (53-77.9)
[2023-10-04] MEDS: Heparin Sodium,Porcine 5,000 UNIT/ML VIAL 3400 UNIT IVPUSH (14:21)
[2023-10-04 16:00] VITALS: BP 144/62; O2SAT 94
[2023-10-04 16:37] LABS: Glucose, Whole Blood 166 mg/dL (60-115)
[2023-10-04] MEDS: Insulin Lispro 100 UNIT/ML 3 ML VIAL SUBCUT (17:31)
[2023-10-04 18:59] VITALS: BP 159/66; PULSE 104; RESP 20; TEMP 36.7; O2SAT 93
[2023-10-04 21:05] LABS: Glucose, Whole Blood 147 mg/dL (60-115)
[2023-10-04] MEDS: Insulin Glargine,Hum.rec.anlog 100 UNIT/ML 10 ML VIAL 15 UNIT SUBCUT (21:55)
[2023-10-04] MEDS: carvediloL 6.25 MG TABLET PO (21:55)
[2023-10-04 22:27] LABS: PTT Heparin Drip 91.7 SEC (53-77.9)
[2023-10-05] VITALS: BP 115/54; PULSE 93; RESP 20; TEMP 36.1; O2SAT 96
[2023-10-05 03:21] VITALS: BP 128/59; PULSE 92; RESP 20; TEMP 36.1; O2SAT 99
[2023-10-05 05:22] LABS: PTT Heparin Drip 48.4 SEC (53-77.9)
[2023-10-05 05:48] LABS: Creatinine Clr Calc Pharmacy 40.9; Estimated Glomerular Filt Rate 50
[2023-10-05] MEDS: Heparin Sodium,Porcine 5,000 UNIT/ML VIAL 3400 UNIT IVPUSH (05:56)
[2023-10-05] MEDS: Heparin Sodium,Porcine/1/2NS 25,000 UNIT/250 ML IV.SOLN 7.45 UNIT IVCONT (05:58)
[2023-10-05 07:42] VITALS: BP 156/67; PULSE 101; RESP 20; TEMP 36.4; O2SAT 95
[2023-10-05 07:43] LABS: Glucose, Whole Blood 107 mg/dL (60-115)
[2023-10-05] MEDS: 0.9 % Sodium Chloride Flush 3 ML SYRINGE IVFLUSH ×2 (08:55→23:47)
[2023-10-05] MEDS: Aspirin 81 MG TAB.CHEW PO (08:55)
[2023-10-05] MEDS: Clopidogrel Bisulfate 75 MG TABLET PO (08:55)
[2023-10-05] MEDS: carvediloL 6.25 MG TABLET PO ×2 (08:55→21:54)
[2023-10-05] MEDS: Isosorbide Mononitrate 60 MG TAB.ER.24H PO (08:55)
[2023-10-05] MEDS: Atorvastatin Calcium 80 MG TABLET PO (08:55)
[2023-10-05 10:24] LABS: Vancomycin Random 16.6 mcg/mL (15-20)
--- NOTE | 2023-10-05 10:59 | HE.PHANOTE ---
re vanco dosing level after 2 doses 16.6. will get another level on 10/07 @1000 to ensure appropriate dosing.
[2023-10-05 11:19] LABS: Glucose, Whole Blood 165 mg/dL (60-115)
[2023-10-05 11:36] VITALS: BP 127/58; PULSE 89; RESP 20; TEMP 36.6; O2SAT 95
[2023-10-05] MEDS: cefEPime HCl 1 GM in 0.9 % Sodium Chloride 50 ML IV ×2 (11:43→23:37)
[2023-10-05] MEDS: Insulin Lispro 100 UNIT/ML 3 ML VIAL SUBCUT ×2 (11:43→21:55)
--- NOTE | 2023-10-05 12:23 | HO.PM.IMPN ---
Subjective Subjective Date of Service: 10/05/23 Interval History: seen and examined this AM with risk advisor services pt denies chest pain sob improving denies productive cough Review of Systems Negative except HPI/interval history. Physical Exam Vital Signs: Vital Signs: Last Vital Signs Temp 97.9 F 10/05/23 11:36 Pulse 89 10/05/23 11:36 Resp 20 10/05/23 11:36 BP 127/58 L 10/05/23 11:36 Pulse Ox 95 10/05/23 11:36 O2 Del Method Nasal Cannula 10/05/23 11:36 O2 Flow Rate 13 10/05/23 11:36 Oxygen Flow Rate 15 10/02/23 22:41 BMI result Body Mass Index 34.2 Appearing in no acute distress lung sounds are clear to auscultation heart regular rate rhythm, clear S1, S2 positive bowel sounds, abdomen is soft, nontender neuro patient is alert x3, no focal deficits Objective Data Active Medications Acetaminophen (Acetaminophen 325 Mg Tablet) 650 mg PO Q6H PRN PRN Reason: Pain, Mild (Pain Scale 1-3) Aspirin (Aspirin 81 Mg Tab.Chew) 81 mg PO DAILY [facility] Last Admin: 10/05/23 08:55 Dose: 81 mg Documented By: LAURIE Atorvastatin Calcium (Atorvastatin Calcium 80 Mg Tablet) 80 mg PO DAILY [facility] Last Admin: 10/05/23 08:55 Dose: 80 mg Documented By: LAURIE Carvedilol (Carvedilol 6.25 Mg Tablet) 6.25 mg PO BID [facility]; Protocol Last Admin: 10/05/23 08:55 Dose: 6.25 mg Documented By: LAURIE Clopidogrel Bisulfate (Clopidogrel Bisulfate 75 Mg Tablet) 75 mg PO DAILY [facility] Last Admin: 10/05/23 08:55 Dose: 75 mg Documented By: LAURIE Heparin Sodium (Porcine) (Heparin Sodium,Porcine 5,000 Unit/Ml Vial) 3,400 unit 40 unit/kg (3400 unit) IVPUSH PROTOCOL BOLUS PRN; Protocol PRN Reason: 40 unit/kg - Heparin Protocol Last Admin: 10/05/23 05:56 Dose: 3,400 unit Documented By: ОЛЬГА Heparin Sodium (Porcine) (Heparin Sodium,Porcine 5,000 Unit/Ml Vial) 6,800 unit 80 unit/kg (6800 unit) IVPUSH PROTOCOL BOLUS PRN; Protocol PRN Reason: 80 unit/kg - Heparin Protocol Heparin Sodium/Sodium Chloride (Heparin Sodium,Porcine/1/2ns) 25,000 unit in 250 mls @ 0 mls/hr IVCONT .Q0M [facility]; Protocol Last Admin: 10/05/23 05:58 Dose: 8.78 units/kg/hr, 7.45 mls/hr Documented By: ОЛЬГА Co-signed By: SMOOTH Cefepime HCl 1 gm/ Sodium (Chloride) 50 mls @ 100 mls/hr IV Q12H [facility] Last Admin: 10/05/23 11:43 Dose: 100 mls/hr Documented By: LAURIE Vancomycin HCl 1,000 mg/ (Sodium Chloride) 270 mls @ 270 mls/hr IV Q24H [facility] Last Infusion: 10/04/23 13:27 Dose: Infused Documented By: LOLA Insulin Glargine (Insulin Glargine,Hum.Rec.Anlog 100 Unit/Ml 10 Ml Vial) 15 unit SUBCUT BEDTIME [facility] Last Admin: 10/04/23 21:55 Dose: 15 unit Documented By: ОЛЬГА Insulin Human Lispro (Insulin Lispro 100 Unit/Ml 3 Ml Vial) 0 unit SUBCUT QIDACHS [facility]; Protocol Last Admin: 10/05/23 11:43 Dose: 2 unit Documented By: LAURIE Isosorbide Mononitrate (Isosorbide Mononitrate 60 Mg Tab.Er.24h) 60 mg PO DAILY [facility]; Protocol Last Admin: 10/05/23 08:55 Dose: 60 mg Documented By: LAURIE Morphine Sulfate (Morphine Sulfate 4 Mg/Ml Cartridge) 2 mg IVPUSH Q4H PRN; Protocol PRN Reason: Pain, Severe (Pain Scale 7-10) Pharmacy Consult (Consult Rx Vancomycin Dosing) 1 each MISCELLANE DAILY PRN PRN Reason: Consult order Sodium Chloride (0.9 % Sodium Chloride Flush 3 Ml Syringe) 3 ml IVFLUSH QSHIFT [facility] Last Admin: 10/05/23 08:55 Dose: 3 ml Documented By: LAURIE Labs 10/04/23 04:16 10/05/23 05:04 Labs: Laboratory Results - last 24 hr 10/04/23 10/04/23 10/04/23 12:59 16:20 20:14 aPTT Heparin Protocol 48.7 L D Estim Creat Clear Calc Estimated GFR POC Glucose 166 H 147 H Random Vancomycin 10/04/23 10/05/23 10/05/23 21:48 05:04 07:31 aPTT Heparin Protocol 91.7 H D 48.4 L D Estim Creat Clear Calc 40.9 Estimated GFR 50 POC Glucose 107 Random Vancomycin 10/05/23 10/05/23 10:03 11:06 aPTT Heparin Protocol Estim Creat Clear Calc Estimated GFR POC Glucose 165 H Random Vancomycin 16.6 Microbiology Microbiology Results: Microbiology 10/02/23 23:07 Blood Culture - Preliminary Blood - Venous No growth after 48 hours. 10/02/23 22:36 Blood Culture - Preliminary Blood - Venous No growth after 48 hours. Assessment and Plan (1) Acute and chronic respiratory failure: Status: Acute Plan 78 year old male with a PMH of insulin dependant DM, CAD s/p multiple stents, COPD/emphysema and chronic respiratory failure on 3L oxygen at baseline, HLD, CHF (EF unknown) and HTN who presented with respiratory symptoms and is diagnosed with pneumonia, sepsis, respiratory failure and NSTEMI. He will be admitted for further work up. Severe Sepsis / Septic Shock secondary to multifocal pneumonia sepsis resolved S/P Levophed drip likely secondary to underlying pneumonia continue IV vancomcyin/cefepime Acute on chronic respiratory failure with hypoxia wean as tolerating, currently on 13L NSTEMI/CAD s/p PCI x 3 echo completed -- normal LV with impaired relaxation; RMWA in the basal inferior and basal inferoseptal segments continue IV heparin cardiology on consult add imdur (starting at 60, increase to home dose tomorrow if stable); increase coreg to home dose MAE on CKD3 Improving towards baseline continue monitoring renal function DM2 hold orals, use basal + bolus POC QIDAC CHF, unspecified echo completed, await results does not appear to be volume overloaded hold diuretics HLD statin Full Code Attending Dr. Sam DVT pptx -- on IV heparin drip for NSTEMI Patient endorses his daughter, Zahraa, as his health care proxy. Need for continued hospitalization: continued treatment for NSTEMI with IV heparin, remains on increased supplemental o2 from baseline, needs IV antibiotics for pneumonia Quality Stroke Does the patient have a stroke diagnosis?: No VTE Prior VTE?: No VTE Risk Level:: Medical - moderate - high VTE Device Contraindication: Treatment Not Indicated VTE Drug Contraindication: N/A - Med Ordered
[2023-10-05 12:26] LABS: PTT Heparin Drip 68.2 SEC (53-77.9)
[2023-10-05] MEDS: vancomycin HCL 1,000 MG in 0.9 % Sodium Chloride 250 ML 270 MG IV (12:52)
[2023-10-05 15:20] VITALS: BP 120/51; PULSE 88; RESP 18; TEMP 36.2; O2SAT 97
[2023-10-05 16:15] LABS: Glucose, Whole Blood 147 mg/dL (60-115)
[2023-10-05 19:25] LABS: PTT Heparin Drip 60.8 SEC (53-77.9)
[2023-10-05 20:00] VITALS: BP 141/61; PULSE 97; RESP 16; TEMP 36.3; O2SAT 96
[2023-10-05 21:23] LABS: Glucose, Whole Blood 155 mg/dL (60-115)
[2023-10-05] MEDS: Insulin Glargine,Hum.rec.anlog 100 UNIT/ML 10 ML VIAL 15 UNIT SUBCUT (21:55)
[2023-10-06] VITALS (8 sets, daily range): BP systolic 95–157; BP diastolic 41–95; PULSE 85–105; RESP 18–20; TEMP 36.1–37; O2SAT 89–98
[2023-10-06 07:30] LABS: PTT Heparin Drip 46.5 SEC (53-77.9)
[2023-10-06] MEDS: Heparin Sodium,Porcine/1/2NS 25,000 UNIT/250 ML IV.SOLN 9.15 UNIT IVCONT (07:43)
[2023-10-06 07:49] LABS: Creatinine Clr Calc Pharmacy 47.5; Estimated Glomerular Filt Rate 59
[2023-10-06] MEDS: Heparin Sodium,Porcine 5,000 UNIT/ML VIAL 3400 UNIT IVPUSH (07:53)
[2023-10-06 08:04] LABS: Glucose, Whole Blood 40 mg/dL (60-115)
[2023-10-06 08:08] LABS: Glucose, Whole Blood 61 mg/dL (60-115)
[2023-10-06] MEDS: Aspirin 81 MG TAB.CHEW PO (09:19)
[2023-10-06] MEDS: Isosorbide Mononitrate 60 MG TAB.ER.24H PO (09:20)
[2023-10-06] MEDS: 0.9 % Sodium Chloride Flush 3 ML SYRINGE IVFLUSH (09:20)
[2023-10-06] MEDS: Clopidogrel Bisulfate 75 MG TABLET PO (09:20)
[2023-10-06] MEDS: carvediloL 6.25 MG TABLET PO ×2 (09:20→21:29)
[2023-10-06] MEDS: Atorvastatin Calcium 80 MG TABLET PO (09:20)
--- NOTE | 2023-10-06 10:27 | HO.PM.IMPN ---
Subjective Subjective Date of Service: 10/06/23 Interval History: pt denies chest pain sob improving denies productive cough Review of Systems Negative except HPI/interval history. Physical Exam Vital Signs: Vital Signs: Last Vital Signs Temp 98.4 F 10/06/23 07:27 Pulse 105 H 10/06/23 07:27 Resp 20 10/06/23 07:27 BP 146/58 H 10/06/23 07:27 Pulse Ox 89 L 10/06/23 07:27 O2 Del Method Nasal Cannula 10/06/23 07:27 O2 Flow Rate 13 10/06/23 07:27 Oxygen Flow Rate 15 10/02/23 22:41 BMI result Body Mass Index 34.2 Appearing in no acute distress lung sounds coarse heart regular rate rhythm, clear S1, S2 positive bowel sounds, abdomen is soft, nontender neuro patient is alert x3, no focal deficits Objective Data Active Medications Acetaminophen (Acetaminophen 325 Mg Tablet) 650 mg PO Q6H PRN PRN Reason: Pain, Mild (Pain Scale 1-3) Aspirin (Aspirin 81 Mg Tab.Chew) 81 mg PO DAILY [facility] Last Admin: 10/06/23 09:19 Dose: 81 mg Documented By: LAURIE Atorvastatin Calcium (Atorvastatin Calcium 80 Mg Tablet) 80 mg PO DAILY [facility] Last Admin: 10/06/23 09:20 Dose: 80 mg Documented By: LAURIE Carvedilol (Carvedilol 6.25 Mg Tablet) 6.25 mg PO BID [facility]; Protocol Last Admin: 10/06/23 09:20 Dose: 6.25 mg Documented By: LAURIE Clopidogrel Bisulfate (Clopidogrel Bisulfate 75 Mg Tablet) 75 mg PO DAILY [facility] Last Admin: 10/06/23 09:20 Dose: 75 mg Documented By: LAURIE Heparin Sodium (Porcine) (Heparin Sodium,Porcine 5,000 Unit/Ml Vial) 3,400 unit 40 unit/kg (3400 unit) IVPUSH PROTOCOL BOLUS PRN; Protocol PRN Reason: 40 unit/kg - Heparin Protocol Last Admin: 10/06/23 07:53 Dose: 3,400 unit Documented By: KRYSTAL Heparin Sodium (Porcine) (Heparin Sodium,Porcine 5,000 Unit/Ml Vial) 6,800 unit 80 unit/kg (6800 unit) IVPUSH PROTOCOL BOLUS PRN; Protocol PRN Reason: 80 unit/kg - Heparin Protocol Cefepime HCl 1 gm/ Sodium (Chloride) 50 mls @ 100 mls/hr IV Q12H [facility] Last Infusion: 10/06/23 00:07 Dose: Infused Documented By: KRYSTAL Vancomycin HCl 1,000 mg/ (Sodium Chloride) 270 mls @ 270 mls/hr IV Q24H [facility] Last Infusion: 10/05/23 14:17 Dose: Infused Documented By: LAURIE Insulin Glargine (Insulin Glargine,Hum.Rec.Anlog 100 Unit/Ml 10 Ml Vial) 15 unit SUBCUT BEDTIME [facility] Last Admin: 10/05/23 21:55 Dose: 15 unit Documented By: KRYSTAL Insulin Human Lispro (Insulin Lispro 100 Unit/Ml 3 Ml Vial) 0 unit SUBCUT QIDACHS [facility]; Protocol Last Admin: 10/06/23 08:18 Dose: Not Given Documented By: LAURIE Non-Admin Reason: No Insulin Coverage Isosorbide Mononitrate (Isosorbide Mononitrate 60 Mg Tab.Er.24h) 60 mg PO DAILY [facility]; Protocol Last Admin: 10/06/23 09:20 Dose: 60 mg Documented By: LAURIE Morphine Sulfate (Morphine Sulfate 4 Mg/Ml Cartridge) 2 mg IVPUSH Q4H PRN; Protocol PRN Reason: Pain, Severe (Pain Scale 7-10) Pharmacy Consult (Consult Rx Vancomycin Dosing) 1 each MISCELLANE DAILY PRN PRN Reason: Consult order Sodium Chloride (0.9 % Sodium Chloride Flush 3 Ml Syringe) 3 ml IVFLUSH QSHIFT [facility] Last Admin: 10/06/23 09:20 Dose: 3 ml Documented By: LAURIE Labs 10/04/23 04:16 10/06/23 06:40 Labs: Laboratory Results - last 24 hr 10/05/23 10/05/23 10/05/23 11:06 12:06 16:02 aPTT Heparin Protocol 68.2 D Estim Creat Clear Calc Estimated GFR POC Glucose 165 H 147 H 10/05/23 10/05/23 10/06/23 18:58 21:13 06:40 aPTT Heparin Protocol 60.8 46.5 L D Estim Creat Clear Calc 47.5 Estimated GFR 59 POC Glucose 155 H 10/06/23 10/06/23 07:29 08:02 aPTT Heparin Protocol Estim Creat Clear Calc Estimated GFR POC Glucose 40 L* 61 Assessment and Plan (1) Acute and chronic respiratory failure: Status: Acute Plan 78 year old male with a PMH of insulin dependant DM, CAD s/p multiple stents, COPD/emphysema and chronic respiratory failure on 3L oxygen at baseline, HLD, CHF (EF unknown) and HTN who presented with respiratory symptoms and is diagnosed with pneumonia, sepsis, respiratory failure and NSTEMI. He will be admitted for further work up. Acute on chronic respiratory failure with hypoxia secondary to mutifocal pna still on 13 liters oxygen repeat CXR mostly unchanged from previous continue vanco and cefepime pulmonary consult DM2 with hypoglycemia bs of 40 this morning. responded to orange juice and food hold orals, use basal + bolus POC QIDAC Severe Sepsis / Septic Shock secondary to multifocal pneumonia sepsis resolved S/P Levophed drip in ED likely secondary to underlying pneumonia continue tx for pna NSTEMI/CAD s/p PCI x 3 echo completed -- normal LV with impaired relaxation; RMWA in the basal inferior and basal inferoseptal segments s/p IV heparin total 72 hours cardiology following continue imdur , coreg asa and plavix MAE on CKD3 Improving towards baseline continue monitoring renal function HLD statin Full Code Attending Dr. Sam DVT pptx with SCD boots Patient endorses his daughter, Zahraa, as his health care proxy. Need for continued hospitalization: continued treatment for NSTEMI with IV heparin, remains on increased supplemental o2 from baseline, needs IV antibiotics for pneumonia Quality Stroke Does the patient have a stroke diagnosis?: No VTE Prior VTE?: No VTE Risk Level:: Medical - moderate - high VTE Device Contraindication: Treatment Not Indicated VTE Drug Contraindication: N/A - Med Ordered
[2023-10-06 11:42] LABS: Glucose, Whole Blood 162 mg/dL (60-115)
[2023-10-06] MEDS: cefEPime HCl 1 GM in 0.9 % Sodium Chloride 50 ML IV (12:00)
[2023-10-06] MEDS: Insulin Lispro 100 UNIT/ML 3 ML VIAL SUBCUT ×2 (12:01→16:56)
[2023-10-06] MEDS: vancomycin HCL 1,000 MG in 0.9 % Sodium Chloride 250 ML 270 MG IV (12:36)
[2023-10-06 16:52] LABS: Glucose, Whole Blood 212 mg/dL (60-115)
[2023-10-06 21:12] LABS: Glucose, Whole Blood 98 mg/dL (60-115)
[2023-10-06] MEDS: Insulin Glargine,Hum.rec.anlog 100 UNIT/ML 10 ML VIAL 15 UNIT SUBCUT (21:27)
[2023-10-07] MEDS: 0.9 % Sodium Chloride Flush 3 ML SYRINGE IVFLUSH ×3 (00:39→15:19)
[2023-10-07] MEDS: cefEPime HCl 1 GM in 0.9 % Sodium Chloride 50 ML IV ×2 (00:39→12:32)
[2023-10-07 04:00] VITALS: BP 140/58; PULSE 99; RESP 18; TEMP 36.1; O2SAT 95
[2023-10-07 07:29] LABS: Creatinine Clr Calc Pharmacy 36.2; Estimated Glomerular Filt Rate 43
[2023-10-07 07:45] LABS: Glucose, Whole Blood 76 mg/dL (60-115)
[2023-10-07 08:00] VITALS: BP 158/65; PULSE 102; RESP 20; TEMP 36.4; O2SAT 89
[2023-10-07] MEDS: Aspirin 81 MG TAB.CHEW PO (08:37)
[2023-10-07] MEDS: Isosorbide Mononitrate 60 MG TAB.ER.24H PO (08:37)
[2023-10-07] MEDS: Clopidogrel Bisulfate 75 MG TABLET PO (08:37)
[2023-10-07] MEDS: Atorvastatin Calcium 80 MG TABLET PO (08:37)
[2023-10-07] MEDS: carvediloL 6.25 MG TABLET PO ×2 (08:37→21:28)
--- NOTE | 2023-10-07 09:15 | HO.PM.IMPN ---
Subjective Subjective Date of Service: 10/07/23 Interval History: pt denies chest pain sob improving, states that he feels better productive cough Review of Systems Negative except HPI/interval history. Physical Exam Vital Signs: Vital Signs: Last Vital Signs Temp 97.6 F 10/07/23 08:00 Pulse 102 H 10/07/23 08:00 Resp 20 10/07/23 08:00 BP 158/65 H 10/07/23 08:00 Pulse Ox 89 L 10/07/23 08:00 O2 Del Method Nasal Cannula 10/07/23 08:00 O2 Flow Rate 13 10/07/23 08:00 Oxygen Flow Rate 15 10/02/23 22:41 BMI result Body Mass Index 34.2 Appearing in no acute distress lung sounds coarse heart regular rate rhythm, clear S1, S2 positive bowel sounds, abdomen is soft, nontender neuro patient is alert x3, no focal deficits Objective Data Active Medications Acetaminophen (Acetaminophen 325 Mg Tablet) 650 mg PO Q6H PRN PRN Reason: Pain, Mild (Pain Scale 1-3) Aspirin (Aspirin 81 Mg Tab.Chew) 81 mg PO DAILY [facility] Last Admin: 10/07/23 08:37 Dose: 81 mg Documented By: ISABEL Atorvastatin Calcium (Atorvastatin Calcium 80 Mg Tablet) 80 mg PO DAILY [facility] Last Admin: 10/07/23 08:37 Dose: 80 mg Documented By: ISABEL Carvedilol (Carvedilol 6.25 Mg Tablet) 6.25 mg PO BID [facility]; Protocol Last Admin: 10/07/23 08:37 Dose: 6.25 mg Documented By: ISABEL Clopidogrel Bisulfate (Clopidogrel Bisulfate 75 Mg Tablet) 75 mg PO DAILY [facility] Last Admin: 10/07/23 08:37 Dose: 75 mg Documented By: ISABEL Heparin Sodium (Porcine) (Heparin Sodium,Porcine 5,000 Unit/Ml Vial) 3,400 unit 40 unit/kg (3400 unit) IVPUSH PROTOCOL BOLUS PRN; Protocol PRN Reason: 40 unit/kg - Heparin Protocol Last Admin: 10/06/23 07:53 Dose: 3,400 unit Documented By: KRYSTAL Heparin Sodium (Porcine) (Heparin Sodium,Porcine 5,000 Unit/Ml Vial) 6,800 unit 80 unit/kg (6800 unit) IVPUSH PROTOCOL BOLUS PRN; Protocol PRN Reason: 80 unit/kg - Heparin Protocol Cefepime HCl 1 gm/ Sodium (Chloride) 50 mls @ 100 mls/hr IV Q12H [facility] Last Infusion: 10/07/23 01:11 Dose: Infused Documented By: JONATAN Vancomycin HCl 1,000 mg/ (Sodium Chloride) 270 mls @ 270 mls/hr IV Q24H [facility] Last Infusion: 10/06/23 14:29 Dose: Infused Documented By: LAURIE Insulin Glargine (Insulin Glargine,Hum.Rec.Anlog 100 Unit/Ml 10 Ml Vial) 15 unit SUBCUT BEDTIME [facility] Last Admin: 10/06/23 21:27 Dose: 15 unit Documented By: JONATAN Insulin Human Lispro (Insulin Lispro 100 Unit/Ml 3 Ml Vial) 0 unit SUBCUT QIDACHS [facility]; Protocol Last Admin: 10/07/23 08:05 Dose: Not Given Documented By: ISABEL Non-Admin Reason: No Insulin Coverage Isosorbide Mononitrate (Isosorbide Mononitrate 60 Mg Tab.Er.24h) 60 mg PO DAILY [facility]; Protocol Last Admin: 10/07/23 08:37 Dose: 60 mg Documented By: ISABEL Morphine Sulfate (Morphine Sulfate 4 Mg/Ml Cartridge) 2 mg IVPUSH Q4H PRN; Protocol PRN Reason: Pain, Severe (Pain Scale 7-10) Pharmacy Consult (Consult Rx Vancomycin Dosing) 1 each MISCELLANE DAILY PRN PRN Reason: Consult order Sodium Chloride (0.9 % Sodium Chloride Flush 3 Ml Syringe) 3 ml IVFLUSH QSHIFT [facility] Last Admin: 10/07/23 08:37 Dose: 3 ml Documented By: ISABEL Labs 10/07/23 09:46 10/07/23 06:52 Labs: Laboratory Results - last 24 hr 10/06/23 10/06/23 10/06/23 11:37 16:37 20:59 Hold Purple Top Estim Creat Clear Calc Estimated GFR POC Glucose 162 H 212 H 98 10/07/23 10/07/23 06:52 07:40 Hold Purple Top SEE NOTE Estim Creat Clear Calc 36.2 Estimated GFR 43 POC Glucose 76 Assessment and Plan (1) Acute and chronic respiratory failure: Status: Acute Plan 78 year old male with a PMH of insulin dependant DM, CAD s/p multiple stents, COPD/emphysema and chronic respiratory failure on 3L oxygen at baseline, HLD, CHF (EF unknown) and HTN who presented with respiratory symptoms and is diagnosed with pneumonia, sepsis, respiratory failure and NSTEMI. He will be admitted for further work up. Acute on chronic respiratory failure with hypoxia secondary to mutifocal pna on 15 liters oxygen repeat CXR mostly unchanged from previous continue vanco and cefepime pulmonary consult pending vbg 7.34/36/46/20 DM2 with episodes of hypoglycemia responds to orange juice and food hold orals, use basal + bolus POC QIDAC Severe Sepsis / Septic Shock secondary to multifocal pneumonia sepsis resolved S/P Levophed drip in ED likely secondary to underlying pneumonia continue tx for pna NSTEMI/CAD s/p PCI x 3 echo completed -- normal LV with impaired relaxation; RMWA in the basal inferior and basal inferoseptal segments s/p IV heparin total 72 hours cardiology following continue imdur , coreg asa and plavix MAE on CKD3 Improving towards baseline continue monitoring renal function HLD statin Full Code Attending Dr. buckner DVT pptx with SCD boots Patient endorses his daughter, Zahraa, as his health care proxy. Need for continued hospitalization: continued treatment for NSTEMI with IV heparin, remains on increased supplemental o2 from baseline, needs IV antibiotics for pneumonia Quality Stroke Does the patient have a stroke diagnosis?: No VTE Prior VTE?: No VTE Risk Level:: Medical - moderate - high VTE Device Contraindication: Treatment Not Indicated VTE Drug Contraindication: N/A - Med Ordered
[2023-10-07 09:53] LABS: Hematocrit 35.9 % (42.0-52.0); Hemoglobin 11.5 g/dl (14.0-18.0); Mean Corpuscular Hemoglobin 28.8 pg (27.0-33.0); Mean Corpuscular Volume 89.8 fL (80.0-98.0); Mean Platelet Volume 10.2 fL (9.4-12.4); Platelet Count 173 X10*3/uL (160-400); Red Cell Distribution Width 13.9 % (11.0-16.0); White Blood Count 16.8 X10*3/uL (4.8-10.8)
--- NOTE | 2023-10-07 09:53 | PM.CNPUL ---
History of Present Illness History of Present Illness Consult date: 10/07/23 Chief complaint: Rigors Narrative: PULMONARY CONSULT : I have seen this 78 years old gentleman for pulmonary consultation this morning. Reviewed the medical records, and also got lot of information from the patient and his daughter who was at the bedside. Chief Complaint: chills, shortness of breath This gentleman does have multiple underlying medical problems including, insulin-dependent diabetes mellitus, coronary artery disease having had multiple stents chronic obstructive pulmonary disease with chronic respiratory failure requiring O2 3 L/minute at home, hyperlipidemia, chronic congestive heart failure and hypertension. Patient was in his usual health prior to this admission, and then he started having episode of fever chills shortness of breath and he ended up in the emergency room from where he has been admitted to [facility] unit. He denies cough or expectoration, and denies any hemoptysis. The chest x-ray in the beginning it did show a faint infiltrate in the left mid lung and the basilar area, but subsequent chest x-ray and CT scan of the she chest show extensive multifocal pneumonia involving the whole left lung and also right lower lobe. He is requiring high concentrations of oxygen. Initially was doing okay with 3 L/minute but subsequently in the emergency room required non-rebreather mask, now by nasal cannula at 15 L/minute. Patient also had period of hypotension requiring Levophed drip. And in the emergency room noted to have elevated cardiac enzymes suggesting NSTMI . He has been weaned off Levophed drip. This morning I had a good conversation with the patient and also with. His daughter He claims that he is feeling better, denies any pain or distress. Review of Systems Review of Systems: Yes all other systems are reviewed and are negative [facility] Past Medical History Medical History (Updated 10/07/23 @ 10:05 by Subha Lyons MD) Adult respiratory distress syndrome Hyperlipidemia Hypertension Diabetes mellitus, type 2 Chronic respiratory failure with hypoxia COPD (chronic obstructive pulmonary disease) CKD (chronic kidney disease) CHF (congestive heart failure) Coronary artery disease Family History Family History Other Cancer Surgical History Surgical History S/P coronary artery stent placement Social History Social History Household Members: Family Housing: House Do you presently have visiting nurse or other home services: Yes (once a month) Patient Tobacco Use Status: Former Tobacco user Second Hand Smoke Exposure: No service: No Meds Allergies Allergy/AdvReac Type Severity Reaction Status Date / Time No Known Allergies Allergy Verified 10/29/21 19:34 Active Medications: Current Medications Acetaminophen (Acetaminophen 325 Mg Tablet) 650 mg PO Q6H PRN PRN Reason: Pain, Mild (Pain Scale 1-3) Aspirin (Aspirin 81 Mg Tab.Chew) 81 mg PO DAILY [facility] Last Admin: 10/07/23 08:37 Dose: 81 mg Atorvastatin Calcium (Atorvastatin Calcium 80 Mg Tablet) 80 mg PO DAILY [facility] Last Admin: 10/07/23 08:37 Dose: 80 mg Carvedilol (Carvedilol 6.25 Mg Tablet) 6.25 mg PO BID [facility]; Protocol Last Admin: 10/07/23 08:37 Dose: 6.25 mg Clopidogrel Bisulfate (Clopidogrel Bisulfate 75 Mg Tablet) 75 mg PO DAILY [facility] Last Admin: 10/07/23 08:37 Dose: 75 mg Cefepime HCl 1 gm/ Sodium (Chloride) 50 mls @ 100 mls/hr IV Q12H [facility] Last Infusion: 10/07/23 01:11 Dose: Infused Vancomycin HCl 1,000 mg/ (Sodium Chloride) 270 mls @ 270 mls/hr IV Q24H [facility] Last Infusion: 10/06/23 14:29 Dose: Infused Insulin Glargine (Insulin Glargine,Hum.Rec.Anlog 100 Unit/Ml 10 Ml Vial) 15 unit SUBCUT BEDTIME [facility] Last Admin: 10/06/23 21:27 Dose: 15 unit Insulin Human Lispro (Insulin Lispro 100 Unit/Ml 3 Ml Vial) 0 unit SUBCUT QIDACHS [facility]; Protocol Last Admin: 10/07/23 08:05 Dose: Not Given Isosorbide Mononitrate (Isosorbide Mononitrate 60 Mg Tab.Er.24h) 60 mg PO DAILY [facility]; Protocol Last Admin: 10/07/23 08:37 Dose: 60 mg Morphine Sulfate (Morphine Sulfate 4 Mg/Ml Cartridge) 2 mg IVPUSH Q4H PRN; Protocol PRN Reason: Pain, Severe (Pain Scale 7-10) Pharmacy Consult (Consult Rx Vancomycin Dosing) 1 each MISCELLANE DAILY PRN PRN Reason: Consult order Sodium Chloride (0.9 % Sodium Chloride Flush 3 Ml Syringe) 3 ml [facility] Last Admin: 10/07/23 08:37 Dose: 3 ml Home Medications Medication Instructions Recorded Confirmed Last Taken Type aspirin 81 mg chewable tablet 1 tab PO DAILY 10/03/23 10/03/23 10/02/23 History atorvastatin 80 mg tablet 80 mg PO DAILY 10/03/23 10/03/23 10/02/23 History carvedilol 6.25 mg tablet 6.25 mg PO BID 10/03/23 10/03/23 10/02/23 History clopidogrel 75 mg tablet 75 mg PO DAILY 10/03/23 10/03/23 10/02/23 History empagliflozin 10 mg tablet 10 mg PO DAILY 10/03/23 10/03/23 10/02/23 History (Jardiance) ferrous sulfate 325 mg (65 mg 325 mg PO DAILY 10/03/23 10/03/23 10/02/23 History iron) tablet insulin aspart U-100 100 unit/mL See Protocol subcut DIRECTED 10/03/23 10/03/23 Unknown History (3 mL) subcutaneous pen (Novolog FlexPen U-100 Insulin aspart) insulin glargine 100 unit/mL (3 28 unit subcut BEDTIME 10/03/23 10/03/23 10/02/23 History mL) subcutaneous pen (Lantus Solostar U-100 Insulin) isosorbide mononitrate 60 mg 120 mg PO DAILY 10/03/23 10/03/23 10/02/23 History tablet,extended release 24 hr lisinopril 10 mg tablet 10 mg PO DAILY 10/03/23 10/03/23 10/02/23 History torsemide 10 mg tablet 10 mg PO BID 10/03/23 10/03/23 10/02/23 History umeclidinium 62.5 mcg/actuation 1 inh inhalation DAILY 10/03/23 10/03/23 10/02/23 History blister powder for inhalation (Incruse Ellipta) Physical Exam Vital Signs: Vital Signs: Last Vital Signs Temp 97.6 F 10/07/23 08:00 Pulse 102 H 10/07/23 08:00 Resp 20 10/07/23 08:00 BP 158/65 H 10/07/23 08:00 Pulse Ox 89 L 10/07/23 08:00 O2 Del Method Nasal Cannula 10/07/23 08:00 O2 Flow Rate 13 10/07/23 08:00 Oxygen Flow Rate 15 10/02/23 22:41 BMI result Body Mass Index 34.2 Const: General: comfortable, no acute distress, alert and awake Orientation/consciousness: patient oriented x3 HEENT: Head: Yes normal to inspection General nose exam: No nasal polyps present and No nasal discharge present Face and sinus: Yes sinuses nontender Mouth: oropharynx normal Throat: Yes posterior oropharynx normal Eyes: General: appearance normal, both eyes and all related structures Neck: Neck: Yes normal visual inspection, Yes no lymphadenopathy, Yes trachea midline and Yes no JVD Thyroid: Thyroid normal Chest: Other: Central line and right jugular vein Chest palpation & inspection: normal inspection of the chest, normal palpation of entire chest wall and no tenderness Resp: Other: Percussion note is resonant, breath sounds are equal on both, sides, The breath sounds are generally distant and diminished over, the basilar areas There are fine inspiratory crepitations over the left mid chest and over the basilar areas. Cardio: Palpation: normal PMI Rate: regular rate Rhythm: regular rhythm Heart sounds: no gallops and no murmurs GI: Palpation (GI): Soft to palpation, nontender, No hepatosplenomegaly present and no masses Auscultation: normal bowel sounds Back/Spine/Pelvis: Other: Not examined Skin: General skin exam: no rashes or lesions noted Neuro: General: patient oriented x3 and no focal motor deficits Cranial nerves: Yes CN's II-XII intact bilaterally Extrem: General: Yes normal to inspection, Yes no clubbing, cyanosis or edema and Yes no calf tenderness Psych: Speech and movement: Normal speech and movement present Results Laboratory Findings 10/07/23 09:46 10/07/23 06:52 ABG, PT/INR, D-dimer: PT/INR, D-dimer PT 17.7 SEC (11.1-13.3) H 10/03/23 03:09 INR 1.5 (0.9-1.1) H 10/03/23 03:09 Abnormal lab findings: Abnormal Labs 10/02/23 10/02/23 10/03/23 22:33 23:11 02:14 WBC 17.8 H RBC Hgb Hct Plt Count Immature Gran % (Auto) 0.5 H Neut % (Auto) 90.8 H Lymph % (Auto) 5.7 L Lymph # (Auto) 1.0 L Abs Immat Gran (auto) 0.09 H Absolute Neuts (auto) 16.2 H PT INR aPTT Heparin Protocol VBG pH 7.46 H VBG HCO3 20 L Potassium 5.6 H Chloride Carbon Dioxide 21 L Anion Gap BUN 69 H Creatinine 2.09 H POC Glucose Random Glucose 147 H Calcium Troponin I High Sens 179.1 H* 823.2 H* D Total Protein 8.3 H 10/03/23 10/03/23 10/03/23 03:09 09:47 11:16 WBC RBC Hgb Hct Plt Count Immature Gran % (Auto) Neut % (Auto) Lymph % (Auto) Lymph # (Auto) Abs Immat Gran (auto) Absolute Neuts (auto) PT 17.7 H INR 1.5 H aPTT Heparin Protocol 162.1 H* 114.4 H* D VBG pH VBG HCO3 Potassium Chloride 113 H Carbon Dioxide 18 L Anion Gap 11 L BUN 65 H Creatinine 1.78 H POC Glucose Random Glucose 134 H Calcium 7.0 L D Troponin I High Sens Total Protein 10/03/23 10/03/23 10/03/23 12:05 12:39 13:18 WBC RBC Hgb Hct Plt Count Immature Gran % (Auto) Neut % (Auto) Lymph % (Auto) Lymph # (Auto) Abs Immat Gran (auto) Absolute Neuts (auto) PT INR aPTT Heparin Protocol 46.9 L D VBG pH VBG HCO3 Potassium Chloride Carbon Dioxide Anion Gap BUN Creatinine 1.85 H POC Glucose 156 H Random Glucose Calcium Troponin I High Sens 1247.5 H* D Total Protein 10/03/23 10/03/23 10/03/23 16:29 19:51 20:16 WBC RBC Hgb Hct Plt Count Immature Gran % (Auto) Neut % (Auto) Lymph % (Auto) Lymph # (Auto) Abs Immat Gran (auto) Absolute Neuts (auto) PT INR aPTT Heparin Protocol 51.7 L VBG pH VBG HCO3 Potassium Chloride Carbon Dioxide Anion Gap BUN Creatinine POC Glucose 180 H 135 H Random Glucose Calcium Troponin I High Sens Total Protein 10/04/23 10/04/23 10/04/23 04:16 11:01 12:59 WBC 23.9 H RBC 4.34 L Hgb 12.5 L Hct 38.6 L Plt Count 158 L D Immature Gran % (Auto) Neut % (Auto) Lymph % (Auto) Lymph # (Auto) Abs Immat Gran (auto) Absolute Neuts (auto) PT INR aPTT Heparin Protocol 100.7 H D 48.7 L D VBG pH VBG HCO3 Potassium Chloride 114 H Carbon Dioxide 19 L Anion Gap BUN 50 H Creatinine 1.47 H POC Glucose 127 H Random Glucose 124 H Calcium 7.7 L D Troponin I High Sens 1038.3 H* Total Protein 10/04/23 10/04/23 10/04/23 16:20 20:14 21:48 WBC RBC Hgb Hct Plt Count Immature Gran % (Auto) Neut % (Auto) Lymph % (Auto) Lymph # (Auto) Abs Immat Gran (auto) Absolute Neuts (auto) PT INR aPTT Heparin Protocol 91.7 H D VBG pH VBG HCO3 Potassium Chloride Carbon Dioxide Anion Gap BUN Creatinine POC Glucose 166 H 147 H Random Glucose Calcium Troponin I High Sens Total Protein 10/05/23 10/05/23 10/05/23 05:04 11:06 16:02 WBC RBC Hgb Hct Plt Count Immature Gran % (Auto) Neut % (Auto) Lymph % (Auto) Lymph # (Auto) Abs Immat Gran (auto) Absolute Neuts (auto) PT INR aPTT Heparin Protocol 48.4 L D VBG pH VBG HCO3 Potassium Chloride Carbon Dioxide Anion Gap BUN Creatinine POC Glucose 165 H 147 H Random Glucose Calcium Troponin I High Sens Total Protein 10/05/23 10/06/23 10/06/23 21:13 06:40 07:29 WBC RBC Hgb Hct Plt Count Immature Gran % (Auto) Neut % (Auto) Lymph % (Auto) Lymph # (Auto) Abs Immat Gran (auto) Absolute Neuts (auto) PT INR aPTT Heparin Protocol 46.5 L D VBG pH VBG HCO3 Potassium Chloride Carbon Dioxide Anion Gap BUN Creatinine POC Glucose 155 H 40 L* Random Glucose Calcium Troponin I High Sens Total Protein 10/06/23 10/06/23 10/07/23 11:37 16:37 06:52 WBC RBC Hgb Hct Plt Count Immature Gran % (Auto) Neut % (Auto) Lymph % (Auto) Lymph # (Auto) Abs Immat Gran (auto) Absolute Neuts (auto) PT INR aPTT Heparin Protocol VBG pH VBG HCO3 Potassium Chloride Carbon Dioxide Anion Gap BUN Creatinine 1.56 H POC Glucose 162 H 212 H Random Glucose Calcium Troponin I High Sens Total Protein 10/07/23 09:46 WBC 16.8 H RBC 4.00 L Hgb 11.5 L Hct 35.9 L Plt Count Immature Gran % (Auto) Neut % (Auto) Lymph % (Auto) Lymph # (Auto) Abs Immat Gran (auto) Absolute Neuts (auto) PT INR aPTT Heparin Protocol VBG pH VBG HCO3 Potassium Chloride Carbon Dioxide Anion Gap BUN Creatinine POC Glucose Random Glucose Calcium Troponin I High Sens Total Protein Microbiology: Microbiology 10/02/23 23:07 Blood - Venous Blood Culture - Preliminary No growth after 48 hours. 10/02/23 22:36 Blood - Venous Blood Culture - Preliminary No growth after 48 hours. Diagnostic Findings Chest x-ray: report reviewed and image reviewed CT scan - chest: report reviewed and image reviewed Assessment and Plan (1) Community acquired pneumonia: Status: Acute (2) Adult respiratory distress syndrome: Status: Acute (3) Acute non-ST elevation myocardial infarction (NSTEMI): Status: Acute (4) Acute and chronic respiratory failure: Status: Acute Plan This 78 years old gentleman with multiple underlying comorbidities, including C, COPD and chronic respiratory failure Does present with multifocal pneumonia especially in the left lung and also right lower lobe, along with acute. respiratory distress syndrome Currently he is fairly comfortable and oxygenating well at 5 L/minute by nasal cannula. I think respiratory service can had an Oxymizer, and gradually wean him down. On the oxygen flow Continue broad-spectrum antibiotic coverage, Continue with DuoNeb updrafts Q 4-6 hours p.r.n.. If the blood cultures are negative, and when his condition is stable I think we can discontinue vancomycin. I was thinking of starting some IV Solu-Medrol but, as he is starting to show improvement, we will hold off this due to his being diabetic an insulin-dependent. Thank you very much for asking me to see this gentleman . Procedures Date of Service Date of Service: 10/07/23
[2023-10-07 09:54] LABS: Venous Blood Gas Refer to POC result
[2023-10-07 09:55] LABS: VBG Base Excess -4.7 mmol/L; VBG HCO3 20 mmol/L (22-26); VBG pCO2 36 mmHg; VBG pH 7.34 (7.32-7.43); VBG pO2 46 mmHg
--- NOTE | 2023-10-07 10:13 | HE.PHANOTE ---
RE: vanco Level on 10/07 came back at 19.0; changed dose to 750mg Q24 with predicted AUC 493, trough of 16.1. Next level to be drawn 10/09 @1000
[2023-10-07 11:22] VITALS: BP 161/69; PULSE 100; RESP 18; TEMP 36.7; O2SAT 95
[2023-10-07 11:32] LABS: Glucose, Whole Blood 136 mg/dL (60-115)
[2023-10-07] MEDS: vancomycin HCL 750 MG in 0.9 % Sodium Chloride 250 ML 265 MG IV (13:00)
--- NOTE | 2023-10-07 14:11 | MHC.CM.PN ---
Pt is not medically ready to DC. DC plan remains home, self care. Cm to follow and assist with DC planning.
[2023-10-07 16:00] VITALS: BP 131/60; PULSE 87; RESP 20; TEMP 36; O2SAT 97
[2023-10-07 16:37] LABS: Glucose, Whole Blood 200 mg/dL (60-115)
[2023-10-07] MEDS: Insulin Lispro 100 UNIT/ML 3 ML VIAL SUBCUT (16:57)
--- NOTE | 2023-10-07 17:26 | PC.NURSE ---
O 2 sat down to 86 % on 15 l Garcia cannula when transfers from recliner to the takes 5 min to o2 sat to go to 93 % at rest ,
[2023-10-07 19:46] VITALS: BP 146/62; PULSE 90; RESP 18; TEMP 37.1; O2SAT 94
[2023-10-07 20:02] LABS: Glucose, Whole Blood 120 mg/dL (60-115)
[2023-10-07] MEDS: Insulin Glargine,Hum.rec.anlog 100 UNIT/ML 10 ML VIAL 15 UNIT SUBCUT (21:28)
[2023-10-07 23:53] VITALS: BP 128/60; PULSE 86; RESP 20; TEMP 36.1; O2SAT 93
[2023-10-08] VITALS (7 sets, daily range): BP systolic 103–154; BP diastolic 44–71; PULSE 80–105; RESP 18–22; TEMP 35.9–36.8; O2SAT 85–97
[2023-10-08] MEDS: cefEPime HCl 1 GM in 0.9 % Sodium Chloride 50 ML IV ×3 (00:46→22:16)
[2023-10-08 03:44] LABS: Glucose, Whole Blood 57 mg/dL (60-115)
[2023-10-08 03:44] LABS: Glucose, Whole Blood 55 mg/dL (60-115)
--- NOTE | 2023-10-08 04:50 | PC.NURSE ---
Addendum entered by Margarette Silva RN 10/08/23 05:43: pt. poc at 0540 was 112. pt comfortable and sleeping in bed. Original Note: patient was given 15 units of lantus last night after verification the MD approved considering patients POC was 120 and he had not eaten dinner. the lantus was given per MD. patients POC this morning was 57 and patient was given orange juice. when the pt. sugar was rechecked it was 63 and more orange juice was given.
[2023-10-08 05:14] LABS: Glucose, Whole Blood 63 mg/dL (60-115)
[2023-10-08 05:41] LABS: Glucose, Whole Blood 112 mg/dL (60-115)
[2023-10-08 07:35] LABS: Glucose, Whole Blood 101 mg/dL (60-115)
[2023-10-08] MEDS: Isosorbide Mononitrate 60 MG TAB.ER.24H PO (08:46)
[2023-10-08] MEDS: carvediloL 6.25 MG TABLET PO ×2 (08:47→22:17)
[2023-10-08] MEDS: Atorvastatin Calcium 80 MG TABLET PO (08:47)
[2023-10-08] MEDS: Aspirin 81 MG TAB.CHEW PO (08:48)
[2023-10-08] MEDS: Clopidogrel Bisulfate 75 MG TABLET PO (08:48)
[2023-10-08 09:07] LABS: Creatinine Clr Calc Pharmacy 36.4; Estimated Glomerular Filt Rate 43
--- NOTE | 2023-10-08 10:58 | HO.PM.IMPN ---
Subjective Subjective Date of Service: 10/09/23 Interval History: pt denies chest pain sob improving, states that he feels better productive cough Review of Systems Negative except HPI/interval history. Physical Exam Vital Signs: Vital Signs: Last Vital Signs Temp 98.2 F 10/08/23 07:57 Pulse 105 H 10/08/23 07:57 Resp 22 H 10/08/23 07:57 BP 147/71 H 10/08/23 07:57 Pulse Ox 85 L 10/08/23 07:57 O2 Del Method Nasal Cannula 10/08/23 07:57 O2 Flow Rate 13 10/08/23 07:57 Oxygen Flow Rate 15 10/02/23 22:41 BMI result Body Mass Index 34.2 Appearing in no acute distress lung sounds coarse heart regular rate rhythm, clear S1, S2 positive bowel sounds, abdomen is soft, nontender neuro patient is alert x3, no focal deficits Objective Data Active Medications Acetaminophen (Acetaminophen 325 Mg Tablet) 650 mg PO Q6H PRN PRN Reason: Pain, Mild (Pain Scale 1-3) Aspirin (Aspirin 81 Mg Tab.Chew) 81 mg PO DAILY [facility] Last Admin: 10/08/23 08:48 Dose: 81 mg Documented By: KIRSTEN Atorvastatin Calcium (Atorvastatin Calcium 80 Mg Tablet) 80 mg PO DAILY [facility] Last Admin: 10/08/23 08:47 Dose: 80 mg Documented By: KIRSTEN Carvedilol (Carvedilol 6.25 Mg Tablet) 6.25 mg PO BID [facility]; Protocol Last Admin: 10/08/23 08:47 Dose: 6.25 mg Documented By: KIRSTEN Clopidogrel Bisulfate (Clopidogrel Bisulfate 75 Mg Tablet) 75 mg PO DAILY [facility] Last Admin: 10/08/23 08:48 Dose: 75 mg Documented By: KIRSTEN Cefepime HCl 1 gm/ Sodium (Chloride) 50 mls @ 100 mls/hr IV Q12H [facility] Last Infusion: 10/08/23 04:20 Dose: Infused Documented By: REZA Vancomycin HCl 750 mg/ Sodium (Chloride) 265 mls @ 265 mls/hr IV Q24H [facility] Last Infusion: 10/07/23 14:13 Dose: Infused Documented By: ISABEL Insulin Glargine (Insulin Glargine,Hum.Rec.Anlog 100 Unit/Ml 10 Ml Vial) 15 unit SUBCUT BEDTIME [facility] Last Admin: 10/07/23 21:28 Dose: 15 unit Documented By: REZA Insulin Human Lispro (Insulin Lispro 100 Unit/Ml 3 Ml Vial) 0 unit SUBCUT QIDACHS [facility]; Protocol Last Admin: 10/08/23 07:47 Dose: Not Given Documented By: KIRSTEN Non-Admin Reason: See Note Isosorbide Mononitrate (Isosorbide Mononitrate 60 Mg Tab.Er.24h) 60 mg PO DAILY [facility]; Protocol Last Admin: 10/08/23 08:46 Dose: 60 mg Documented By: KIRSTEN Methylprednisolone Sodium Succinate (Methylprednisolone Sod Succ 40 Mg/Ml Vial) 40 mg IVPUSH Q8H [facility] Pharmacy Consult (Consult Rx Vancomycin Dosing) 1 each MISCELLANE DAILY PRN PRN Reason: Consult order Sodium Chloride (0.9 % Sodium Chloride Flush 3 Ml Syringe) 3 ml IVFLUSH QSHIFT [facility] Last Admin: 10/08/23 07:47 Dose: Not Given Documented By: KIRSTEN Non-Admin Reason: See Note Labs 10/07/23 09:46 10/09/23 06:52 Labs: Laboratory Results - last 24 hr 10/07/23 10/07/23 10/07/23 11:24 16:32 19:59 Estim Creat Clear Calc Estimated GFR POC Glucose 136 H 200 H 120 H Hold Red Top 10/08/23 10/08/23 10/08/23 03:37 03:39 03:59 Estim Creat Clear Calc Estimated GFR POC Glucose 55 L* 57 L* 63 Hold Red Top 10/08/23 10/08/23 10/08/23 05:37 07:14 08:45 Estim Creat Clear Calc 36.4 Estimated GFR 43 POC Glucose 112 101 Hold Red Top See Note Microbiology Microbiology Results: Microbiology 10/02/23 23:07 Blood Culture - Final Blood - Venous No growth after 5 days. 10/02/23 22:36 Blood Culture - Final Blood - Venous No growth after 5 days. Assessment and Plan (1) Acute and chronic respiratory failure: Status: Acute Plan 78 year old male with a PMH of insulin dependant DM, CAD s/p multiple stents, COPD/emphysema and chronic respiratory failure on 3L oxygen at baseline, HLD, CHF (EF unknown) and HTN who presented with respiratory symptoms and is diagnosed with pneumonia, sepsis, respiratory failure and NSTEMI. He will be admitted for further work up. Acute on chronic respiratory failure with hypoxia secondary to mutifocal pna worsening hypoxia on 15 liters oxygen> transition to high flow continue vanco and cefepime pulmonary consult> continue current treatment vbg 7.34/36/46/20 from 10/07/23 check RPP, BNP start solumedrol 40mg Q8H DM2 with episodes of hypoglycemia responds to orange juice and food hold orals, use basal + bolus POC QIDAC Severe Sepsis / Septic Shock secondary to multifocal pneumonia sepsis resolved S/P Levophed drip in ED likely secondary to underlying pneumonia continue tx for pna NSTEMI/CAD s/p PCI x 3 echo completed -- normal LV with impaired relaxation; RMWA in the basal inferior and basal inferoseptal segments s/p IV heparin total 72 hours cardiology following continue imdur , coreg asa and plavix MAE on CKD3 Improving towards baseline continue monitoring renal function HLD statin Full Code Attending Dr. buckner DVT pptx with SCD boots Patient endorses his daughter, Zahraa, as his health care proxy. Need for continued hospitalization: continued treatment for NSTEMI with IV heparin, remains on increased supplemental o2 from baseline, needs IV antibiotics for pneumonia Quality Stroke Does the patient have a stroke diagnosis?: No VTE Prior VTE?: No VTE Risk Level:: Medical - moderate - high VTE Device Contraindication: Treatment Not Indicated VTE Drug Contraindication: N/A - Med Ordered
[2023-10-08] MEDS: vancomycin HCL 750 MG in 0.9 % Sodium Chloride 250 ML 265 MG IV (11:08)
[2023-10-08] MEDS: methylPREDNISolone Sod Succ 40 MG/ML VIAL IVPUSH ×2 (11:08→18:19)
[2023-10-08 11:10] LABS: Glucose, Whole Blood 110 mg/dL (60-115)
[2023-10-08 11:53] LABS: Venous Blood Gas Refer to POC result
[2023-10-08 11:54] LABS: VBG Base Excess -6.2 mmol/L; VBG HCO3 18 mmol/L (22-26); VBG pCO2 33 mmHg; VBG pH 7.34 (7.32-7.43); VBG pO2 48 mmHg
[2023-10-08 12:12] LABS: Anion Gap 10 (12-20); Blood Urea Nitrogen 29 mg/dL (9-16); Carbon Dioxide 20 mmol/L (22-29); Chloride 113 mmol/L (96-108); Creatinine Clr Calc Pharmacy 37.6; Estimated Glomerular Filt Rate 45; Glucose Random 124 mg/dL (60-115); Sodium 139 mmol/L (135-145)
[2023-10-08 12:12] LABS: B Type Natriuretic Peptide 446 pg/mL (<100)
[2023-10-08 12:29] LABS: Procalcitonin 3.72 ng/mL
[2023-10-08 13:16] LABS: Adenovirus PCR Not Detected (Not Detect.); Bordetella parapertussis PCR Not Detected (Not Detect.); Bordetella pertussis PCR Not Detected (Not Detect.); Chlamydia pneumoniae PCR Not Detected (Not Detect.); Coronavirus 229E PCR Not Detected (Not Detect.); Coronavirus HKU1 PCR Not Detected (Not Detect.); Coronavirus NL63 PCR Not Detected (Not Detect.); Coronavirus OC43 PCR Not Detected (Not Detect.); Human metapneumovirus PCR Not Detected (Not Detect.); Influenza A PCR Not Detected (Not Detect.); Influenza B PCR Not Detected (Not Detect.); Mycoplasma pneumoniae PCR Not Detected (Not Detect.); Parainfluenza 1 PCR Not Detected (Not Detect.); Parainfluenza 2 PCR Not Detected (Not Detect.); Parainfluenza 3 PCR Not Detected (Not Detect.); Parainfluenza 4 PCR Not Detected (Not Detect.); RSV PCR Not Detected (Not Detect.); Rhino/Enterovirus PCR Not Detected (Not Detect.)
[2023-10-08 13:20] LABS: SARS-CoV-2 PCR Not Detected (Not Detect.)
[2023-10-08 16:11] LABS: Glucose, Whole Blood 236 mg/dL (60-115)
[2023-10-08] MEDS: Insulin Lispro 100 UNIT/ML 3 ML VIAL SUBCUT ×2 (16:15→22:16)
--- NOTE | 2023-10-08 16:16 | PC.NURSE ---
Addendum entered by Chemo Mcdaniels RN 10/09/23 17:48: md paged back, family informed of Md's response Addendum entered by Chemo Mcdaniels RN 10/09/23 17:30: family stated they would like to speak with MD for an update, md informed. family updated as best as possible by this report writer. Pt on hi flow, informed family reason as to why. pt continues to have episodes of desatting Original Note: RT at bedside throughout the ay adjusting oxygen d/t pt desatting. pt has insulin machine to check sugars R shoulder but per pt it is not working at this time. Spacecraft Systems Engineer at bedside.
[2023-10-08 20:31] LABS: Glucose, Whole Blood 246 mg/dL (60-115)
[2023-10-08] MEDS: Insulin Glargine,Hum.rec.anlog 100 UNIT/ML 10 ML VIAL 15 UNIT SUBCUT (22:16)
[2023-10-08] MEDS: 0.9 % Sodium Chloride Flush 3 ML SYRINGE IVFLUSH (22:17)
[2023-10-09] VITALS (11 sets, daily range): BP systolic 116–186; BP diastolic 55–85; PULSE 75–101; RESP 18–28; TEMP 36.1–36.6; O2SAT 91–97
[2023-10-09] MEDS: methylPREDNISolone Sod Succ 40 MG/ML VIAL IVPUSH ×3 (02:14→17:54)
[2023-10-09 06:52] LABS: Glucose, Whole Blood 237 mg/dL (60-115)
[2023-10-09] MEDS: Clopidogrel Bisulfate 75 MG TABLET PO (07:05)
[2023-10-09] MEDS: Atorvastatin Calcium 80 MG TABLET PO (07:05)
[2023-10-09] MEDS: carvediloL 6.25 MG TABLET PO ×2 (07:05→22:15)
[2023-10-09] MEDS: Isosorbide Mononitrate 60 MG TAB.ER.24H PO (07:05)
[2023-10-09] MEDS: Aspirin 81 MG TAB.CHEW PO (07:06)
[2023-10-09 07:48] LABS: Creatinine Clr Calc Pharmacy 33.2; Estimated Glomerular Filt Rate 39
[2023-10-09] MEDS: amLODIPine Besylate 2.5 MG TABLET PO (08:19)
[2023-10-09] MEDS: Furosemide 40 MG/4 ML VIAL IVPUSH (08:19)
[2023-10-09] MEDS: Insulin Lispro 100 UNIT/ML 3 ML VIAL SUBCUT ×4 (08:19→22:15)
[2023-10-09 10:43] LABS: Vancomycin Trough 21.4 mcg/mL (10.0-20.0)
[2023-10-09] MEDS: cefEPime HCl 1 GM in 0.9 % Sodium Chloride 50 ML IV ×2 (10:56→22:19)
--- NOTE | 2023-10-09 11:13 | HE.PHANOTE ---
RE: VANCO Patients level came back this morning at 21.4. Trough is high even for sepsis, will decrease dose to 500 mg Q24H. Also moved interval by 2 hours to allow more time to clear, I did notice patient was given last dose an hour earlier. PRedicted AUC 410. Next level 10/10 @1200
[2023-10-09 11:44] LABS: Glucose, Whole Blood 296 mg/dL (60-115)
[2023-10-09 12:59] LABS: Vancomycin Random 19.8 mcg/mL (15-20)
--- NOTE | 2023-10-09 13:01 | HO.PM.IMPN ---
Subjective Subjective Date of Service: 10/09/23 Interval History: pt denies chest pain sob improving, states that he feels better productive cough Review of Systems Negative except HPI/interval history. Physical Exam Vital Signs: Vital Signs: Last Vital Signs Temp 98 F 10/09/23 11:55 Pulse 88 10/09/23 11:55 Resp 28 H 10/09/23 11:55 BP 116/55 L 10/09/23 11:55 Pulse Ox 92 10/09/23 11:55 O2 Del Method High Flow Nasal C annula 10/09/23 11:55 O2 Flow Rate 40 10/09/23 11:55 FiO2 45 10/09/23 11:55 Oxygen Flow Rate 15 10/02/23 22:41 BMI result Body Mass Index 34.2 Appearing in no acute distress lung sounds exp wheezing heart regular rate rhythm, clear S1, S2 positive bowel sounds, abdomen is soft, nontender neuro patient is alert x3, no focal deficits Objective Data Active Medications Acetaminophen (Acetaminophen 325 Mg Tablet) 650 mg PO Q6H PRN PRN Reason: Pain, Mild (Pain Scale 1-3) Amlodipine Besylate (Amlodipine Besylate 2.5 Mg Tablet) 2.5 mg PO DAILY COUNT INCLUDES [facility]; Protocol Last Admin: 10/09/23 08:19 Dose: 2.5 mg Documented By: KIRSTEN Aspirin (Aspirin 81 Mg Tab.Chew) 81 mg PO DAILY COUNT INCLUDES THE [facility] Last Admin: 10/09/23 07:06 Dose: 81 mg Documented By: KRYSTAL Atorvastatin Calcium (Atorvastatin Calcium 80 Mg Tablet) 80 mg PO DAILY COUNT INCLUDES THE [facility] Last Admin: 10/09/23 07:05 Dose: 80 mg Documented By: KRYSTAL Carvedilol (Carvedilol 6.25 Mg Tablet) 6.25 mg PO BID COUNT INCLUDES THE [facility]; Protocol Last Admin: 10/09/23 07:05 Dose: 6.25 mg Documented By: KRYSTAL Clopidogrel Bisulfate (Clopidogrel Bisulfate 75 Mg Tablet) 75 mg PO DAILY COUNT INCLUDES THE [facility] Last Admin: 10/09/23 07:05 Dose: 75 mg Documented By: KRYSTAL Cefepime HCl 1 gm/ Sodium (Chloride) 50 mls @ 100 mls/hr IV Q12H COUNT INCLUDES THE [facility] Last Infusion: 10/09/23 11:28 Dose: Infused Documented By: KIRSTEN Vancomycin HCl 500 mg/ Sodium (Chloride) 110 mls @ 110 mls/hr IV Q24H COUNT INCLUDES THE [facility] Insulin Glargine (Insulin Glargine,Hum.Rec.Anlog 100 Unit/Ml 10 Ml Vial) 15 unit SUBCUT BEDTIME COUNT INCLUDES THE [facility] Last Admin: 10/08/23 22:16 Dose: 15 unit Documented By: KRYSTAL Insulin Human Lispro (Insulin Lispro 100 Unit/Ml 3 Ml Vial) 0 unit SUBCUT QIDACHS COUNT INCLUDES THE [facility]; Protocol Last Admin: 10/09/23 11:52 Dose: 6 unit Documented By: KIRSTEN Isosorbide Mononitrate (Isosorbide Mononitrate 60 Mg Tab.Er.24h) 60 mg PO DAILY COUNT INCLUDES THE [facility]; Protocol Last Admin: 10/09/23 07:05 Dose: 60 mg Documented By: KRYSTAL Methylprednisolone Sodium Succinate (Methylprednisolone Sod Succ 40 Mg/Ml Vial) 40 mg IVPUSH Q8H COUNT INCLUDES THE [facility] Last Admin: 10/09/23 10:58 Dose: 40 mg Documented By: KIRSTEN Pharmacy Consult (Consult Rx Vancomycin Dosing) 1 each MISCELLANE DAILY PRN PRN Reason: Consult order Sodium Chloride (0.9 % Sodium Chloride Flush 3 Ml Syringe) 3 ml IVFLUSH QSHIFT COUNT INCLUDES THE [facility] Last Admin: 10/09/23 07:24 Dose: Not Given Documented By: KIRSTEN Non-Admin Reason: See Note Labs 10/07/23 09:46 10/09/23 06:52 Labs: Laboratory Results - last 24 hr 10/08/23 10/08/23 10/08/23 11:32 16:08 20:20 Hold Purple Top Estim Creat Clear Calc Estimated GFR POC Glucose 236 H 246 H Vancomycin Trough Random Vancomycin Respiratory Panel Garcia See Note Adenovirus (Rapid PCR) Not Detected B.pert (TEM-PCR) Not Detected B.parapertussis DNA PCR Not Detected C. pneumoniae DNA (PCR) Not Detected Coronavirus OC43 (PCR) Not Detected Coronavirus HKU1 (PCR) Not Detected Coronavirus 229E (PCR) Not Detected Coronavirus NL63 (PCR) Not Detected Human Metapneumovir PCR Not Detected Influenza A (RT-PCR) Not Detected Influenza B (RT-PCR) Not Detected M. pneumoniae (PCR) Not Detected Parainfluenza 1 (PCR) Not Detected Parainfluenza 2 (PCR) Not Detected Parainfluenza 3 (PCR) Not Detected Parainfluenza 4 (PCR) Not Detected RSV (PCR) Not Detected Entero/Rhino (PCR) Not Detected SARS-CoV-2 RNA (RT-PCR) Not Detected 10/09/23 10/09/23 10/09/23 06:44 06:52 07:26 Hold Purple Top SEE NOTE Estim Creat Clear Calc 33.2 Estimated GFR 39 POC Glucose 237 H Vancomycin Trough Random Vancomycin Respiratory Panel Garcia Adenovirus (Rapid PCR) B.pert (TEM-PCR) B.parapertussis DNA PCR C. pneumoniae DNA (PCR) Coronavirus OC43 (PCR) Coronavirus HKU1 (PCR) Coronavirus 229E (PCR) Coronavirus NL63 (PCR) Human Metapneumovir PCR Influenza A (RT-PCR) Influenza B (RT-PCR) M. pneumoniae (PCR) Parainfluenza 1 (PCR) Parainfluenza 2 (PCR) Parainfluenza 3 (PCR) Parainfluenza 4 (PCR) RSV (PCR) Entero/Rhino (PCR) SARS-CoV-2 RNA (RT-PCR) 10/09/23 10/09/23 10/09/23 09:54 11:24 12:14 Hold Purple Top Estim Creat Clear Calc Estimated GFR POC Glucose 296 H Vancomycin Trough 21.4 H Random Vancomycin 19.8 Respiratory Panel Garcia Adenovirus (Rapid PCR) B.pert (TEM-PCR) B.parapertussis DNA PCR C. pneumoniae DNA (PCR) Coronavirus OC43 (PCR) Coronavirus HKU1 (PCR) Coronavirus 229E (PCR) Coronavirus NL63 (PCR) Human Metapneumovir PCR Influenza A (RT-PCR) Influenza B (RT-PCR) M. pneumoniae (PCR) Parainfluenza 1 (PCR) Parainfluenza 2 (PCR) Parainfluenza 3 (PCR) Parainfluenza 4 (PCR) RSV (PCR) Entero/Rhino (PCR) SARS-CoV-2 RNA (RT-PCR) Assessment and Plan (1) Acute and chronic respiratory failure: Status: Acute Plan 78 year old male with a PMH of insulin dependant DM, CAD s/p multiple stents, COPD/emphysema and chronic respiratory failure on 3L oxygen at baseline, HLD, CHF (EF unknown) and HTN who presented with respiratory symptoms and is diagnosed with pneumonia, sepsis, respiratory failure and NSTEMI. He will be admitted for further work up. Acute on chronic respiratory failure with hypoxia secondary to mutifocal pna on 13-15 liters oxygen> transitioned to high flow 40L/45% continue vanco and cefepime pulmonary consult> continue current treatment vbg 7.34/36/46/20 from 10/07/23 RPP neg BNP slightly elevated, given one dose of IV lasix continue solumedrol 40mg Q8H check VQ scan due to continued hypoxia repeat CXR DM2 with episodes of hypoglycemia responds to orange juice and food hold orals, use basal + bolus POC QIDAC Severe Sepsis / Septic Shock secondary to multifocal pneumonia sepsis resolved S/P Levophed drip in ED likely secondary to underlying pneumonia continue tx for pna NSTEMI/CAD s/p PCI x 3 echo completed -- normal LV with impaired relaxation; RMWA in the basal inferior and basal inferoseptal segments s/p IV heparin total 72 hours cardiology following continue imdur , coreg asa and plavix MAE on CKD3 Improving towards baseline continue monitoring renal function HLD statin Full Code Attending Dr. buckner DVT pptx with SCD boots Patient endorses his daughter, Zahraa, as his health care proxy. Need for continued hospitalization: continued treatment for NSTEMI with IV heparin, remains on increased supplemental o2 from baseline, needs IV antibiotics for pneumonia Quality Stroke Does the patient have a stroke diagnosis?: No VTE Prior VTE?: No VTE Risk Level:: Medical - moderate - high VTE Device Contraindication: Treatment Not Indicated VTE Drug Contraindication: N/A - Med Ordered
[2023-10-09] MEDS: vancomycin HCL 500 MG in 0.9 % Sodium Chloride 100 ML 110 MG IV (15:02)
[2023-10-09 16:23] LABS: Glucose, Whole Blood 278 mg/dL (60-115)
[2023-10-09] MEDS: Furosemide 20 MG/2 ML VIAL IVPUSH (17:03)
[2023-10-09 20:17] LABS: Glucose, Whole Blood 200 mg/dL (60-115)
[2023-10-09] MEDS: Insulin Glargine,Hum.rec.anlog 100 UNIT/ML 10 ML VIAL 15 UNIT SUBCUT (22:16)
[2023-10-10] VITALS (10 sets, daily range): BP systolic 131–171; BP diastolic 62–79; PULSE 73–98; RESP 16–20; TEMP 36.1–36.6; O2SAT 85–98
[2023-10-10] MEDS: 0.9 % Sodium Chloride Flush 3 ML SYRINGE IVFLUSH ×4 (00:38→20:49)
[2023-10-10] MEDS: methylPREDNISolone Sod Succ 40 MG/ML VIAL IVPUSH ×3 (03:52→17:24)
[2023-10-10 07:42] LABS: Glucose, Whole Blood 224 mg/dL (60-115)
[2023-10-10] MEDS: Isosorbide Mononitrate 60 MG TAB.ER.24H PO (09:10)
[2023-10-10] MEDS: Atorvastatin Calcium 80 MG TABLET PO (09:10)
[2023-10-10] MEDS: carvediloL 6.25 MG TABLET PO ×2 (09:10→20:46)
[2023-10-10] MEDS: Clopidogrel Bisulfate 75 MG TABLET PO (09:11)
[2023-10-10] MEDS: amLODIPine Besylate 2.5 MG TABLET PO (09:11)
[2023-10-10] MEDS: Insulin Lispro 100 UNIT/ML 3 ML VIAL SUBCUT ×4 (09:11→20:48)
[2023-10-10] MEDS: Aspirin 81 MG TAB.CHEW PO (09:11)
[2023-10-10] MEDS: Furosemide 20 MG/2 ML VIAL IVPUSH (09:12)
[2023-10-10 11:20] LABS: Glucose, Whole Blood 326 mg/dL (60-115)
[2023-10-10 11:22] LABS: Basophils Absolute Auto 0.1 X10*3/uL (0.0-0.2); Basophils Percent Auto 0.2 % (0-2); Hemoglobin 11.2 g/dl (14.0-18.0); Imm Gran Abs Auto 0.35 X10*3/uL (0.00-0.03); Imm Gran Pct Auto 1.6 % (0.0-0.4); Lymphocytes Percent Auto 4.6 % (20-40); MANUAL DIFF FLAG SCAN; Mean Corpuscular HGB Conc 32.9 g/dl (31.0-36.0); Mean Corpuscular Hemoglobin 29.2 pg (27.0-33.0); Mean Corpuscular Volume 88.5 fL (80.0-98.0); Mean Platelet Volume 10.7 fL (9.4-12.4); Monocytes Absolute Auto 0.5 X10*3/uL (0.1-1.2); Monocytes Percent Auto 2.1 % (2-11); Neutrophils Absolute Auto 20.2 x10*3/uL (2.0-8.3); Neutrophils Percent Auto 91.5 % (45-73); Platelet Count 321 X10*3/uL (160-400); Red Blood Count 3.84 X10*6/uL (4.60-5.80); Red Cell Distribution Width 13.6 % (11.0-16.0); SCAN SMEAR FLAG 1; White Blood Count 22.1 X10*3/uL (4.8-10.8)
[2023-10-10] MEDS: cefEPime HCl 1 GM in 0.9 % Sodium Chloride 50 ML IV (11:24)
[2023-10-10 11:43] LABS: B Type Natriuretic Peptide 321 pg/mL (<100)
[2023-10-10 11:47] LABS: Anion Gap 11 (12-20); Blood Urea Nitrogen 49 mg/dL (9-16); Calcium 8.1 mg/dL (8.4-10.2); Carbon Dioxide 19 mmol/L (22-29); Chloride 106 mmol/L (96-108); Creatinine Clr Calc Pharmacy 30.3; Estimated Glomerular Filt Rate 35; Glucose Random 383 mg/dL (60-115); Potassium 3.9 mmol/L (3.3-5.1); Sodium 132 mmol/L (135-145)
[2023-10-10 11:50] LABS: SLIDE REVIEW VERIFIED
--- NOTE | 2023-10-10 12:17 | HE.PHANOTE ---
RE: vanco Trough on 10/10 came back at 20.0; pushed back next dose to 1999. Predicted trough of 15.8 and AUC of 450; will get another level before next dose 10/11 @1800. kidney function is declining
[2023-10-10 13:03] LABS: Glucose, Whole Blood 324 mg/dL (60-115)
--- NOTE | 2023-10-10 13:35 | MHC.CM.PN ---
Pt not yet medically cleared for DC. Pt eval rec STR, but pt is still on high flow O2, so will not be accepted at STR. CM met with pt. to discuss STR as possible when he is ready, gave him a list of local STR's. He understood that he is weak from being in the hosp. and would benefit from it. He said his dtr will be here later and to speak with her. CM will speak with dtr, and follow to assist with DC plan.
[2023-10-10] MEDS: Heparin Sodium,Porcine 5,000 UNIT/ML VIAL 5000 UNIT SUBCUT (14:41)
--- NOTE | 2023-10-10 15:06 | PC.RT ---
taken off HFNC, placed on 7L oxymask. SpO2 93-95%. RN aware
--- NOTE | 2023-10-10 15:15 | HO.PM.IMPN ---
Subjective Subjective Date of Service: 10/10/23 Interval History: seen and examined this morning follow up for respiratory failure reports dry cough, no sob, no chest pain denies fever or chills Review of Systems Review of Systems: Yes all other systems are reviewed and are negative Constitutional Constitutional: Denies chills and Denies fever(s) Cardiovascular Cardiovascular: Denies chest pain, Denies palpitations and Denies dyspnea Respiratory Respiratory: Reports cough and Denies dyspnea Gastrointestinal Gastrointestinal: Denies abdominal pain Endocrine Endocrine: Denies palpitations Physical Exam Vital Signs: Vital Signs: Last Vital Signs Temp 97.8 F 10/10/23 11:18 Pulse 82 10/10/23 11:18 Resp 20 10/10/23 11:18 BP 144/62 H 10/10/23 11:18 Pulse Ox 93 10/10/23 11:18 O2 Del Method High Flow Nasal C annula 10/10/23 11:18 O2 Flow Rate 40 10/10/23 11:18 FiO2 45 10/10/23 11:18 Oxygen Flow Rate 15 10/02/23 22:41 BMI result Body Mass Index 34.2 Const: General: comfortable, no acute distress, alert and awake Nutritional Appearance: overweight Orientation/consciousness: patient oriented x3 Resp: Effort & Inspection: normal respiratory effort, able to speak in complete sentences, no respiratory distress and no use of accessory muscles Cardio: Rate: regular rate GI: Inspection: No distended Palpation (GI): Soft to palpation and nontender Neuro: Other: grossly nonfocal General: patient oriented x3 and moves all extremities Extrem: General: Yes no pedal edema Objective Data Active Medications Acetaminophen (Acetaminophen 325 Mg Tablet) 650 mg PO Q6H PRN PRN Reason: Pain, Mild (Pain Scale 1-3) Amlodipine Besylate (Amlodipine Besylate 2.5 Mg Tablet) 2.5 mg PO DAILY [facility]; Protocol Last Admin: 10/10/23 09:11 Dose: 2.5 mg Documented By: AMARILIS Aspirin (Aspirin 81 Mg Tab.Chew) 81 mg PO DAILY [facility] Last Admin: 10/10/23 09:11 Dose: 81 mg Documented By: AMARILIS Atorvastatin Calcium (Atorvastatin Calcium 80 Mg Tablet) 80 mg PO DAILY [facility] Last Admin: 10/10/23 09:10 Dose: 80 mg Documented By: AMARILIS Carvedilol (Carvedilol 6.25 Mg Tablet) 6.25 mg PO BID [facility]; Protocol Last Admin: 10/10/23 09:10 Dose: 6.25 mg Documented By: AMARILIS Clopidogrel Bisulfate (Clopidogrel Bisulfate 75 Mg Tablet) 75 mg PO DAILY [facility] Last Admin: 10/10/23 09:11 Dose: 75 mg Documented By: AMARILIS Furosemide (Furosemide 20 Mg/2 Ml Vial) 20 mg IVPUSH BID@0900,1800 [facility]; Protocol Last Admin: 10/10/23 09:12 Dose: 20 mg Documented By: AMARILIS Heparin Sodium (Porcine) (Heparin Sodium,Porcine 5,000 Unit/Ml Vial) 5,000 unit SUBCUT Q12H [facility] Last Admin: 10/10/23 14:41 Dose: 5,000 unit Documented By: LUIS Insulin Glargine (Insulin Glargine,Hum.Rec.Anlog 100 Unit/Ml 10 Ml Vial) 15 unit SUBCUT BEDTIME [facility] Last Admin: 10/09/23 22:16 Dose: 15 unit Documented By: JASMIN Insulin Human Lispro (Insulin Lispro 100 Unit/Ml 3 Ml Vial) 0 unit SUBCUT QIDACHS [facility]; Protocol Last Admin: 10/10/23 11:21 Dose: 8 unit Documented By: AMARILIS Comments: POC- 326 Isosorbide Mononitrate (Isosorbide Mononitrate 60 Mg Tab.Er.24h) 60 mg PO DAILY [facility]; Protocol Last Admin: 10/10/23 09:10 Dose: 60 mg Documented By: AMARILIS Methylprednisolone Sodium Succinate (Methylprednisolone Sod Succ 40 Mg/Ml Vial) 40 mg IVPUSH Q8H [facility] Last Admin: 10/10/23 09:10 Dose: 40 mg Documented By: AMARILIS Sodium Chloride (0.9 % Sodium Chloride Flush 3 Ml Syringe) 3 ml IVFLUSH QSHIFT [facility] Last Admin: 10/10/23 14:42 Dose: 3 ml Documented By: LUIS Labs 10/10/23 11:07 10/10/23 11:07 Labs: Laboratory Results - last 24 hr 10/09/23 10/09/23 10/10/23 16:19 20:14 07:20 MCV MCH MCHC RDW Plt Count MPV Immature Gran % (Auto) Neut % (Auto) Lymph % (Auto) [place] % (Auto) Eos % (Auto) Baso % (Auto) Lymph # (Auto) [place] # (Auto) Eos # (Auto) Baso # (Auto) Abs Immat Gran (auto) Absolute Neuts (auto) Absolute Nucleated RBC Nucleated RBC % (auto) Smear Tech's Comments Anion Gap Estim Creat Clear Calc Estimated GFR POC Glucose 278 H 200 H 224 H Random Glucose Calcium B-Natriuretic Peptide Random Vancomycin 10/10/23 10/10/23 10/10/23 11:07 11:07 11:07 MCV 88.5 MCH 29.2 MCHC 32.9 RDW 13.6 Plt Count 321 D MPV 10.7 Immature Gran % (Auto) 1.6 H Neut % (Auto) 91.5 H Lymph % (Auto) 4.6 L [place] % (Auto) 2.1 Eos % (Auto) 0.0 Baso % (Auto) 0.2 Lymph # (Auto) 1.0 L [place] # (Auto) 0.5 Eos # (Auto) 0.0 Baso # (Auto) 0.1 Abs Immat Gran (auto) 0.35 H Absolute Neuts (auto) 20.2 H Absolute Nucleated RBC 0.000 Nucleated RBC % (auto) 0.0 Smear Tech's Comments VERIFIED Anion Gap Cancelled 11 L Estim Creat Clear Calc Cancelled 30.3 Estimated GFR Cancelled POC Glucose Random Glucose Calcium B-Natriuretic Peptide Random Vancomycin 10/10/23 10/10/23 10/10/23 11:07 11:07 11:07 MCV MCH MCHC RDW Plt Count MPV Immature Gran % (Auto) Neut % (Auto) Lymph % (Auto) [place] % (Auto) Eos % (Auto) Baso % (Auto) Lymph # (Auto) [place] # (Auto) Eos # (Auto) Baso # (Auto) Abs Immat Gran (auto) Absolute Neuts (auto) Absolute Nucleated RBC Nucleated RBC % (auto) Smear Tech's Comments Anion Gap Estim Creat Clear Calc Estimated GFR 35 POC Glucose Random Glucose Cancelled 383 H* Calcium Cancelled 8.1 L B-Natriuretic Peptide 321 H Random Vancomycin 20.0 10/10/23 10/10/23 11:16 12:58 MCV MCH MCHC RDW Plt Count MPV Immature Gran % (Auto) Neut % (Auto) Lymph % (Auto) [place] % (Auto) Eos % (Auto) Baso % (Auto) Lymph # (Auto) [place] # (Auto) Eos # (Auto) Baso # (Auto) Abs Immat Gran (auto) Absolute Neuts (auto) Absolute Nucleated RBC Nucleated RBC % (auto) Smear Tech's Comments Anion Gap Estim Creat Clear Calc Estimated GFR POC Glucose 326 H 324 H Random Glucose Calcium B-Natriuretic Peptide Random Vancomycin Assessment and Plan (1) Acute non-ST elevation myocardial infarction (NSTEMI): Status: Acute (2) Acute and chronic respiratory failure: Status: Acute (3) MAE (acute kidney injury): Status: Acute Plan 78 year old male with a PMH of insulin dependant DM, CAD s/p multiple stents, COPD/emphysema and chronic respiratory failure on 3L oxygen at baseline, HLD, CHF (EF unknown) and HTN who presented with respiratory symptoms and is diagnosed with pneumonia, sepsis, respiratory failure and NSTEMI. He will be admitted for further work up. Acute on chronic respiratory failure with hypoxia secondary to mutifocal pna and fluid overload pt says he is on 4L of oxygen at baseline, requiring high flow 40L/45% but able to be weaned down to 7L oxymask this am s/p 7 days of IV vanco and cefepime - will d/c antibiotics seen by pulmonary RPP neg has been treated with IV lasix, overall still positive, will continue IV lasix (is on torsemide at baseline) will start to wean solumedrol to 40mg Q12H check VQ scan indeterminant, b/l doppler US negative for DVT repeat CXR 10/09 showing inprovement in pneumonia acute on chronic HFpEF echo from with EF 60-65% with mild LVH and impaired relaxation on torsemide at baseline, currently on IV lasix currently overall still in positive fluid balance will continue IV lasix DM2 with episodes of hypoglycemia and now with hyperglycemia due to steroids jardiance on hold continue lantus on 28u at baseline, has been getting 15u here continue SSI Severe Sepsis / Septic Shock secondary to multifocal pneumonia sepsis resolved S/P Levophed drip in ED likely secondary to underlying pneumonia NSTEMI/CAD s/p PCI x 3 echo completed -- normal LV with impaired relaxation; RMWA in the basal inferior and basal inferoseptal segments s/p IV heparin total 72 hours cardiology following continue imdur (on 120 at baseline, now on 60 daily), coreg asa and plavix and statin MAE on CKD3 renal function trending back up ?due to cardiorenal continue monitoring renal function on lisinopril at baseline - this has been on hold on torsemide at baseline - this has been on hold HTN on lisinopril at baseline - currently on hold likely due to MAE and low bp on admission started on low dose norvasc follow blood pressure closely HLD statin Full Code Attending Dr. buckner DVT pptx with heparin Patient endorses his daughter, Zahraa, as his health care proxy. Need for continued hospitalization:remains on high flow o2 Quality Stroke Does the patient have a stroke diagnosis?: No VTE Prior VTE?: No VTE Risk Level:: Medical - moderate - high VTE Device Contraindication: Treatment Not Indicated VTE Drug Contraindication: N/A - Med Ordered
[2023-10-10 16:16] LABS: Glucose, Whole Blood 345 mg/dL (60-115)
[2023-10-10 20:26] LABS: Glucose, Whole Blood 316 mg/dL (60-115)
[2023-10-10] MEDS: Insulin Glargine,Hum.rec.anlog 100 UNIT/ML 10 ML VIAL 15 UNIT SUBCUT (20:46)
[2023-10-10] MEDS: Labetalol HCL 100 MG/20 ML VIAL 10 MG IVPUSH (22:12)
[2023-10-11] VITALS (7 sets, daily range): BP systolic 105–165; BP diastolic 52–69; PULSE 61–86; RESP 17–20; TEMP 36.1–36.7; O2SAT 90–97; BMI 35.1
[2023-10-11] MEDS: methylPREDNISolone Sod Succ 40 MG/ML VIAL IVPUSH (03:34)
[2023-10-11] MEDS: Heparin Sodium,Porcine 5,000 UNIT/ML VIAL 5000 UNIT SUBCUT ×2 (03:34→13:12)
[2023-10-11 07:17] LABS: Anion Gap 11 (12-20); Blood Urea Nitrogen 55 mg/dL (9-16); Calcium 7.9 mg/dL (8.4-10.2); Carbon Dioxide 22 mmol/L (22-29); Chloride 109 mmol/L (96-108); Creatinine Clr Calc Pharmacy 31.7; Estimated Glomerular Filt Rate 37; Glucose Random 112 mg/dL (60-115); Sodium 138 mmol/L (135-145)
[2023-10-11 07:26] LABS: B Type Natriuretic Peptide 240 pg/mL (<100)
[2023-10-11 07:47] LABS: Glucose, Whole Blood 109 mg/dL (60-115)
[2023-10-11] MEDS: amLODIPine Besylate 2.5 MG TABLET PO (08:09)
[2023-10-11] MEDS: Isosorbide Mononitrate 60 MG TAB.ER.24H PO (08:09)
[2023-10-11] MEDS: Aspirin 81 MG TAB.CHEW PO (08:09)
[2023-10-11] MEDS: carvediloL 6.25 MG TABLET PO ×2 (08:09→22:32)
[2023-10-11] MEDS: Furosemide 20 MG/2 ML VIAL IVPUSH ×2 (08:10→13:12)
[2023-10-11] MEDS: Clopidogrel Bisulfate 75 MG TABLET PO (08:10)
[2023-10-11] MEDS: 0.9 % Sodium Chloride Flush 3 ML SYRINGE IVFLUSH ×3 (08:10→22:34)
[2023-10-11] MEDS: Atorvastatin Calcium 80 MG TABLET PO (08:10)
[2023-10-11 11:44] LABS: Glucose, Whole Blood 291 mg/dL (60-115)
[2023-10-11] MEDS: Insulin Lispro 100 UNIT/ML 3 ML VIAL SUBCUT ×3 (13:13→22:33)
[2023-10-11 16:23] LABS: Glucose, Whole Blood 355 mg/dL (60-115)
--- NOTE | 2023-10-11 16:33 | MHC.CM.PN ---
Pt completed HCP today, it is in chart, copies given to Dtr. List of area SNF's given to family, their first choice is [facility] [place]. Referral sent.
--- NOTE | 2023-10-11 16:55 | P.PNIM_ITS ---
Subjective Subjective Date of Service: 10/11/23 Interval History: seen and examined this morning follow up for respiratory failure history obtained with the assistance of a director of estate no significant complaints today, overall feeling better. breathing easier Review of Systems Review of Systems: Yes all other systems are reviewed and are negative Constitutional Constitutional: Denies chills and Denies fever(s) Cardiovascular Cardiovascular: Denies chest pain, Denies palpitations and Denies dyspnea Respiratory Respiratory: Denies dyspnea Gastrointestinal Gastrointestinal: Denies abdominal pain Endocrine Endocrine: Denies palpitations Physical Exam 2 Vital Signs: Vital Signs: Last Vital Signs Temp 97.8 F 10/11/23 15:03 Pulse 78 10/11/23 15:03 Resp 18 10/11/23 15:03 BP 139/59 L 10/11/23 15:03 Pulse Ox 94 10/11/23 15:03 O2 Del Method Aerosol Mask 10/11/23 15:03 O2 Flow Rate 7 10/11/23 15:03 FiO2 45 10/10/23 11:18 Oxygen Flow Rate 15 10/02/23 22:41 BMI result Body Mass Index 35.1 Const: General: comfortable, no acute distress, alert and awake Nutritional Appearance: overweight Orientation/consciousness: patient oriented x3 Resp: Effort & Inspection: normal respiratory effort, able to speak in complete sentences, no respiratory distress and no use of accessory muscles Cardio: Rate: regular rate GI: Inspection: No distended Palpation (GI): Soft to palpation and nontender Neuro: Other: grossly nonfocal General: patient oriented x3 and moves all extremities Extrem: General: Yes no pedal edema Objective Data Active Medications Acetaminophen (Acetaminophen 325 Mg Tablet) 650 mg PO Q6H PRN PRN Reason: Pain, Mild (Pain Scale 1-3) Amlodipine Besylate (Amlodipine Besylate 2.5 Mg Tablet) 2.5 mg PO DAILY [facility]; Protocol Last Admin: 10/11/23 08:09 Dose: 2.5 mg Documented By: LOLA Aspirin (Aspirin 81 Mg Tab.Chew) 81 mg PO DAILY [facility] Last Admin: 10/11/23 08:09 Dose: 81 mg Documented By: LOLA Atorvastatin Calcium (Atorvastatin Calcium 80 Mg Tablet) 80 mg PO DAILY [facility] Last Admin: 10/11/23 08:10 Dose: 80 mg Documented By: LOLA Carvedilol (Carvedilol 6.25 Mg Tablet) 6.25 mg PO BID [facility]; Protocol Last Admin: 10/11/23 08:09 Dose: 6.25 mg Documented By: LOLA Clopidogrel Bisulfate (Clopidogrel Bisulfate 75 Mg Tablet) 75 mg PO DAILY [facility] Last Admin: 10/11/23 08:10 Dose: 75 mg Documented By: LOLA Furosemide (Furosemide 20 Mg/2 Ml Vial) 20 mg IVPUSH DAILY [facility]; Protocol Last Admin: 10/11/23 08:10 Dose: 20 mg Documented By: LOLA Heparin Sodium (Porcine) (Heparin Sodium,Porcine 5,000 Unit/Ml Vial) 5,000 unit SUBCUT Q12H [facility] Last Admin: 10/11/23 13:12 Dose: 5,000 unit Documented By: LOLA Insulin Glargine (Insulin Glargine,Hum.Rec.Anlog 100 Unit/Ml 10 Ml Vial) 15 unit SUBCUT BEDTIME [facility] Last Admin: 10/10/23 20:46 Dose: 15 unit Documented By: ZELDA Insulin Human Lispro (Insulin Lispro 100 Unit/Ml 3 Ml Vial) 0 unit SUBCUT QIDACHS [facility]; Protocol Last Admin: 10/11/23 13:13 Dose: 6 unit Documented By: LOLA Isosorbide Mononitrate (Isosorbide Mononitrate 60 Mg Tab.Er.24h) 60 mg PO DAILY [facility]; Protocol Last Admin: 10/11/23 08:09 Dose: 60 mg Documented By: LOLA Methylprednisolone Sodium Succinate (Methylprednisolone Sod Succ 40 Mg/Ml Vial) 40 mg IVPUSH DAILY [facility] Sodium Chloride (0.9 % Sodium Chloride Flush 3 Ml Syringe) 3 ml IVFLUSH QSHIFT [facility] Last Admin: 10/11/23 08:10 Dose: 3 ml Documented By: LOLA Labs 10/10/23 11:07 10/11/23 06:40 Labs: Laboratory Results - last 24 hr 10/10/23 10/11/23 10/11/23 20:14 06:40 07:44 Anion Gap 11 L Estim Creat Clear Calc 31.7 Estimated GFR 37 POC Glucose 316 H 109 Random Glucose 112 Calcium 7.9 L B-Natriuretic Peptide 240 H 10/11/23 10/11/23 11:32 16:03 Anion Gap Estim Creat Clear Calc Estimated GFR POC Glucose 291 H 355 H* Random Glucose Calcium B-Natriuretic Peptide Assessment and Plan (1) MAE (acute kidney injury): Status: Acute (2) Acute non-ST elevation myocardial infarction (NSTEMI): Status: Acute (3) Acute and chronic respiratory failure: Status: Acute Plan 78 year old male with a PMH of insulin dependant DM, CAD s/p multiple stents, COPD/emphysema and chronic respiratory failure on 3L oxygen at baseline, HLD, CHF (EF unknown) and HTN who presented with respiratory symptoms and is diagnosed with pneumonia, sepsis, respiratory failure and NSTEMI. He will be admitted for further work up. Acute on chronic respiratory failure with hypoxia secondary to mutifocal pna and fluid overload pt says he is on 4L of oxygen at baseline, requiring high flow 40L/45% but now down to 7L oxymask completed 7 days of IV vanco and cefepime; RPP negative seen by pulmonary has been treated with IV lasix, overall still positive, will continue IV lasix (is on torsemide at baseline) will start to wean solumedrol check VQ scan indeterminant, b/l doppler US negative for DVT repeat CXR 10/09 showing improvement in pneumonia acute on chronic HFpEF echo from with EF 60-65% with mild LVH and impaired relaxation on torsemide at baseline, currently on IV lasix currently overall still in positive fluid balance, BNP trending down will continue IV lasix DM2 with episodes of hypoglycemia and now with hyperglycemia due to steroids jardiance on hold continue lantus on 28u at baseline, has been getting 15u here continue SSI Severe Sepsis / Septic Shock secondary to multifocal pneumonia sepsis resolved S/P Levophed drip in ED likely secondary to underlying pneumonia NSTEMI/CAD s/p PCI x 3 echo completed -- normal LV with impaired relaxation; RMWA in the basal inferior and basal inferoseptal segments s/p IV heparin total 72 hours cardiology following continue imdur (on 120 at baseline, now on 60 daily), coreg asa and plavix and statin MAE on CKD3 renal function trending back up ?due to cardiorenal continue monitoring renal function on lisinopril at baseline - this has been on hold on torsemide at baseline - this has been on hold HTN on lisinopril at baseline - currently on hold likely due to MAE and low bp on admission started on low dose norvasc follow blood pressure closely HLD statin Full Code Attending Dr. buckner DVT pptx with heparin Patient endorses his daughter, Zahraa, as his health care proxy. Need for continued hospitalization: oxygen requirement, need for IV lasix, close montiroing of kidneys and safe disposition Quality Stroke Does the patient have a stroke diagnosis?: No VTE Prior VTE?: No VTE Risk Level:: Medical - moderate - high VTE Device Contraindication: Treatment Not Indicated VTE Drug Contraindication: N/A - Med Ordered
[2023-10-11 18:41] LABS: Vancomycin Trough 16.8 mcg/mL (10.0-20.0)
[2023-10-11 20:18] LABS: Glucose, Whole Blood 236 mg/dL (60-115)
[2023-10-11] MEDS: Insulin Glargine,Hum.rec.anlog 100 UNIT/ML 10 ML VIAL 15 UNIT SUBCUT (22:33)
[2023-10-12] VITALS (7 sets, daily range): BP systolic 116–149; BP diastolic 51–68; PULSE 59–74; RESP 16–20; TEMP 35.9–36.9; O2SAT 92–99; BMI 35.0
[2023-10-12] MEDS: Heparin Sodium,Porcine 5,000 UNIT/ML VIAL 5000 UNIT SUBCUT ×2 (01:16→12:20)
[2023-10-12 07:29] LABS: Anion Gap 13 (12-20); Blood Urea Nitrogen 61 mg/dL (9-16); Calcium 7.6 mg/dL (8.4-10.2); Carbon Dioxide 19 mmol/L (22-29); Chloride 108 mmol/L (96-108); Creatinine Clr Calc Pharmacy 29.4; Estimated Glomerular Filt Rate 34; Glucose Random 42 mg/dL (60-115); Potassium 3.7 mmol/L (3.3-5.1); Sodium 136 mmol/L (135-145)
[2023-10-12 07:46] LABS: Glucose, Whole Blood 43 mg/dL (60-115)
[2023-10-12] MEDS: Glucose Gel 15 GM GEL..GRAM. PO (07:52)
[2023-10-12] MEDS: amLODIPine Besylate 2.5 MG TABLET PO (07:52)
[2023-10-12] MEDS: methylPREDNISolone Sod Succ 40 MG/ML VIAL IVPUSH (07:52)
[2023-10-12] MEDS: carvediloL 6.25 MG TABLET PO ×2 (07:52→21:29)
[2023-10-12] MEDS: Isosorbide Mononitrate 60 MG TAB.ER.24H PO (07:52)
[2023-10-12] MEDS: Atorvastatin Calcium 80 MG TABLET PO (07:53)
[2023-10-12] MEDS: Aspirin 81 MG TAB.CHEW PO (07:53)
[2023-10-12] MEDS: Clopidogrel Bisulfate 75 MG TABLET PO (07:53)
[2023-10-12] MEDS: 0.9 % Sodium Chloride Flush 3 ML SYRINGE IVFLUSH ×3 (07:53→21:32)
--- NOTE | 2023-10-12 08:02 | PM.EVENT ---
Event Note Date of Service: 10/12/23 Event Note: Chart Reviewed. 78 yr old man with MAE First episode of MAE at the time of admission was probably due to hypoperfusion Cr improved from 2.08 to 1.3 Second episode of MAE most likely due to vanco induced tubular injury Other possibilities include hypoperfusion and obstruction ( unlikely) AGN/AiN seem unlikely based on urine findings Suggest: Urine studies( ordered) Avoid Nephrotoxins( Vanco has been discontinued!) Continue to avoid hypotension Hold Lisinopril temporarily. Watch urine output and obtain renal ultrasonogram Follow creatinine No indication for dialysis Full consult to follow Thanks Time Spent With Patient Time: Total time managing care of this patient today ____ minutes.
[2023-10-12 08:43] LABS: Glucose, Whole Blood 104 mg/dL (60-115)
--- NOTE | 2023-10-12 10:57 | PC.NURSE ---
Critical result of glucose 42 on this patient at 0721. MD notified and POC checked. Upon checking the patients POC his blood sugar was 43, patient was asymptomatic. MD notified again and glucose gel was ordered. Glucose gel given along with apple and orange juice, patient then ate his breakfast. POC rechecked half an hour after eating and blood sugar was 104, will continue to monitor patient.
[2023-10-12 11:42] LABS: Glucose, Whole Blood 178 mg/dL (60-115)
[2023-10-12] MEDS: Insulin Lispro 100 UNIT/ML 3 ML VIAL SUBCUT ×3 (12:20→21:29)
--- NOTE | 2023-10-12 15:10 | HO.PM.IMPN ---
Subjective Subjective Date of Service: 10/12/23 Interval History: seen and examined this morning follow up for respiratory failure feeling well this am no overnight events Review of Systems Review of Systems: Yes all other systems are reviewed and are negative Constitutional Constitutional: Denies chills and Denies fever(s) Cardiovascular Cardiovascular: Denies chest pain, Denies palpitations and Denies dyspnea Respiratory Respiratory: Denies cough and Denies dyspnea Gastrointestinal Gastrointestinal: Denies abdominal pain Endocrine Endocrine: Denies palpitations Physical Exam Vital Signs: Vital Signs: Last Vital Signs Temp 97.9 F 10/12/23 11:18 Pulse 71 10/12/23 11:18 Resp 20 10/12/23 11:18 BP 119/51 L 10/12/23 11:18 Pulse Ox 96 10/12/23 11:18 O2 Del Method Nasal Cannula 10/12/23 11:18 O2 Flow Rate 7 10/12/23 11:18 FiO2 45 10/10/23 11:18 Oxygen Flow Rate 15 10/02/23 22:41 BMI result Body Mass Index 35.0 Const: General: comfortable, no acute distress, alert and awake Nutritional Appearance: overweight Orientation/consciousness: patient oriented x3 Resp: Other: no crackles Effort & Inspection: normal respiratory effort, able to speak in complete sentences, no respiratory distress and no use of accessory muscles Cardio: Rate: regular rate GI: Inspection: No distended Palpation (GI): Soft to palpation and nontender Neuro: Other: grossly nonfocal General: patient oriented x3 and moves all extremities Extrem: General: Yes no pedal edema Objective Data Active Medications Acetaminophen (Acetaminophen 325 Mg Tablet) 650 mg PO Q6H PRN PRN Reason: Pain, Mild (Pain Scale 1-3) Albuterol/Ipratropium (Albuterol/Iprat 2.5/0.5mg 3 Ml Ampul.Neb) 3 ml INHALE RQ4H WHILE AWAKE PRN PRN Reason: Shortness of Breath/Wheezing Amlodipine Besylate (Amlodipine Besylate 2.5 Mg Tablet) 2.5 mg PO DAILY [facility]; Protocol Last Admin: 10/12/23 07:52 Dose: 2.5 mg Documented By: ALYSSA Aspirin (Aspirin 81 Mg Tab.Chew) 81 mg PO DAILY [facility] Last Admin: 10/12/23 07:53 Dose: 81 mg Documented By: ALYSSA Atorvastatin Calcium (Atorvastatin Calcium 80 Mg Tablet) 80 mg PO DAILY [facility] Last Admin: 10/12/23 07:53 Dose: 80 mg Documented By: ALYSSA Carvedilol (Carvedilol 6.25 Mg Tablet) 6.25 mg PO BID [facility]; Protocol Last Admin: 10/12/23 07:52 Dose: 6.25 mg Documented By: ALYSSA Clopidogrel Bisulfate (Clopidogrel Bisulfate 75 Mg Tablet) 75 mg PO DAILY [facility] Last Admin: 10/12/23 07:53 Dose: 75 mg Documented By: ALYSSA Dextrose (Dextrose 50 % 25 Gm/50 Ml Syringe) 25 gm IVPUSH Q15M PRN; Protocol PRN Reason: per Hypoglycemia Standing Ord. Glucose (Glucose Gel 15 Gm Gel..Gram.) 15 gm PO Q15M PRN; Protocol PRN Reason: per Hypoglycemia Standing Ord. Last Admin: 10/12/23 07:52 Dose: 15 gm Documented By: ALYSSA Heparin Sodium (Porcine) (Heparin Sodium,Porcine 5,000 Unit/Ml Vial) 5,000 unit SUBCUT Q12H [facility] Last Admin: 10/12/23 12:20 Dose: 5,000 unit Documented By: ALYSSA Insulin Glargine (Insulin Glargine,Hum.Rec.Anlog 100 Unit/Ml 10 Ml Vial) 8 unit SUBCUT BEDTIME [facility] Insulin Human Lispro (Insulin Lispro 100 Unit/Ml 3 Ml Vial) 0 unit SUBCUT QIDACHS [facility]; Protocol Last Admin: 10/12/23 12:20 Dose: 2 unit Documented By: ALYSSA Isosorbide Mononitrate (Isosorbide Mononitrate 60 Mg Tab.Er.24h) 60 mg PO DAILY [facility]; Protocol Last Admin: 10/12/23 07:52 Dose: 60 mg Documented By: ALYSSA Methylprednisolone Sodium Succinate (Methylprednisolone Sod Succ 40 Mg/Ml Vial) 40 mg IVPUSH DAILY [facility] Last Admin: 10/12/23 07:52 Dose: 40 mg Documented By: ALYSSA Sodium Chloride (0.9 % Sodium Chloride Flush 3 Ml Syringe) 3 ml IVFLUSH QSHIFT [facility] Last Admin: 10/12/23 07:53 Dose: 3 ml Documented By: ALYSSA Labs 10/10/23 11:07 10/12/23 06:13 Labs: Laboratory Results - last 24 hr 10/11/23 10/11/23 10/11/23 16:03 18:14 20:06 Hold Purple Top Anion Gap Estim Creat Clear Calc Estimated GFR POC Glucose 355 H* 236 H Random Glucose Calcium Vancomycin Trough 16.8 10/12/23 10/12/23 10/12/23 06:13 06:46 07:41 Hold Purple Top SEE NOTE Anion Gap 13 Estim Creat Clear Calc 29.4 Estimated GFR 34 POC Glucose 43 L* Random Glucose 42 L* Calcium 7.6 L Vancomycin Trough 10/12/23 10/12/23 08:39 11:21 Hold Purple Top Anion Gap Estim Creat Clear Calc Estimated GFR POC Glucose 104 178 H Random Glucose Calcium Vancomycin Trough Assessment and Plan (1) Acute and chronic respiratory failure: Status: Acute (2) Acute non-ST elevation myocardial infarction (NSTEMI): Status: Acute (3) Severe sepsis: Status: Acute Plan 78 year old male with a PMH of insulin dependant DM, CAD s/p multiple stents, COPD/emphysema and chronic respiratory failure on 3L oxygen at baseline, HLD, CHF (EF unknown) and HTN who presented with respiratory symptoms and is diagnosed with pneumonia, sepsis, respiratory failure and NSTEMI. He will be admitted for further work up. Acute on chronic respiratory failure with hypoxia secondary to mutifocal pna and fluid overload pt says he is on 4L of oxygen at baseline, requiring high flow 40L/45% but now down to 5L oxymask completed 7 days of IV vanco and cefepime; RPP negative seen by pulmonary will start to wean solumedrol, plan to transition to po prednisone in am VQ scan indeterminant, b/l doppler US negative for DVT repeat CXR 10/09 showing improvement in pneumonia s/p IV lasix) acute on chronic HFpEF echo from with EF 60-65% with mild LVH and impaired relaxation on torsemide at baseline, currently on IV lasix currently overall still in positive fluid balance, BNP trending down will hold IV lasix for now as creatinine trending up slightly on torsemide at baseline, consider resuming in am if renal function stable DM2 with episodes of hypoglycemia and hyperglycemia hyperglycemia likely due to steroids; hypoglycemic am 10/12 on lantus on 28u at baseline, has been getting 15u here, will decrease to 8U given hypoglycemia jardiance on hold continue SSI, follow POCs MAE on CKD3 renal function trending back up on lisinopril at baseline - this has been on hold on torsemide at baseline - this has been on hold nephrology consult pending will hold further diuretics for now follow BMP Severe Sepsis / Septic Shock secondary to multifocal pneumonia sepsis resolved S/P Levophed drip in ED likely secondary to underlying pneumonia NSTEMI/CAD s/p PCI x 3 echo completed -- normal LV with impaired relaxation; RMWA in the basal inferior and basal inferoseptal segments s/p IV heparin total 72 hours cardiology following continue imdur (on 120 at baseline, now on 60 daily), coreg asa and plavix and statin HTN on lisinopril at baseline - currently on hold likely due to MAE and low bp on admission started on low dose norvasc follow blood pressure closely HLD statin Full Code Attending Dr. Lawrence DVT pptx with heparin dispo: PT rec STR Patient endorses his daughter, Zahraa, as his health care proxy. Need for continued hospitalization: oxygen requirement, need for IV lasix, close monitoring of kidneys and safe disposition Quality Stroke Does the patient have a stroke diagnosis?: No VTE Prior VTE?: No VTE Risk Level:: Medical - moderate - high VTE Device Contraindication: Treatment Not Indicated VTE Drug Contraindication: N/A - Med Ordered
[2023-10-12 16:30] LABS: Glucose, Whole Blood 297 mg/dL (60-115)
[2023-10-12 20:49] LABS: Glucose, Whole Blood 302 mg/dL (60-115)
[2023-10-12] MEDS: Insulin Glargine,Hum.rec.anlog 100 UNIT/ML 10 ML VIAL 8 UNIT SUBCUT (21:29)
[2023-10-13] MEDS: Heparin Sodium,Porcine 5,000 UNIT/ML VIAL 5000 UNIT SUBCUT ×2 (02:52→15:30)
[2023-10-13 03:59] VITALS: BP 132/62; PULSE 66; RESP 18; TEMP 36.5; O2SAT 97
[2023-10-13 07:08] LABS: Basophils Absolute Auto 0.1 X10*3/uL (0.0-0.2); Basophils Percent Auto 0.2 % (0-2); Eosinophils Absolute Auto 0.2 X10*3/uL (0.0-0.4); Eosinophils Percent Auto 0.8 % (0-4); Hematocrit 35.8 % (42.0-52.0); Hemoglobin 11.8 g/dl (14.0-18.0); Imm Gran Abs Auto 0.35 X10*3/uL (0.00-0.03); Imm Gran Pct Auto 1.5 % (0.0-0.4); Lymphocytes Percent Auto 12.6 % (20-40); MANUAL DIFF FLAG SCAN; Mean Corpuscular Hemoglobin 28.9 pg (27.0-33.0); Mean Corpuscular Volume 87.7 fL (80.0-98.0); Mean Platelet Volume 10.4 fL (9.4-12.4); Monocytes Absolute Auto 1.9 X10*3/uL (0.1-1.2); Monocytes Percent Auto 7.9 % (2-11); Neutrophils Absolute Auto 18.3 x10*3/uL (2.0-8.3); Platelet Count 406 X10*3/uL (160-400); Red Blood Count 4.08 X10*6/uL (4.60-5.80); Red Cell Distribution Width 13.7 % (11.0-16.0); SCAN SMEAR FLAG 1; White Blood Count 23.7 X10*3/uL (4.8-10.8)
[2023-10-13 07:18] LABS: Anion Gap 11 (12-20); Blood Urea Nitrogen 59 mg/dL (9-16); Calcium 7.6 mg/dL (8.4-10.2); Carbon Dioxide 23 mmol/L (22-29); Chloride 108 mmol/L (96-108); Creatinine Clr Calc Pharmacy 32.2; Estimated Glomerular Filt Rate 37; Potassium 3.7 mmol/L (3.3-5.1); Sodium 138 mmol/L (135-145)
[2023-10-13 07:20] LABS: Glucose Random 42 mg/dL (60-115)
[2023-10-13 07:29] LABS: Glucose, Whole Blood 40 mg/dL (60-115)
[2023-10-13 07:49] LABS: Glucose, Whole Blood 54 mg/dL (60-115)
[2023-10-13 07:58] LABS: SLIDE REVIEW VERIFIED
[2023-10-13 08:00] VITALS: BP 161/68; PULSE 89; RESP 20; TEMP 36; O2SAT 92
[2023-10-13] MEDS: amLODIPine Besylate 2.5 MG TABLET PO (08:46)
[2023-10-13] MEDS: predniSONE 20 MG TABLET 40 MG PO (08:46)
[2023-10-13] MEDS: Isosorbide Mononitrate 60 MG TAB.ER.24H PO (08:46)
[2023-10-13] MEDS: Atorvastatin Calcium 80 MG TABLET PO (08:46)
[2023-10-13] MEDS: Clopidogrel Bisulfate 75 MG TABLET PO (08:46)
[2023-10-13] MEDS: carvediloL 6.25 MG TABLET PO ×2 (08:46→21:24)
[2023-10-13] MEDS: Aspirin 81 MG TAB.CHEW PO (08:46)
[2023-10-13] MEDS: 0.9 % Sodium Chloride Flush 3 ML SYRINGE IVFLUSH ×3 (08:47→21:24)
[2023-10-13 09:01] LABS: Glucose, Whole Blood 120 mg/dL (60-115)
[2023-10-13 09:51] LABS: Estimated Average Glucose 174 mg/dL; Hemoglobin A1c % 7.7 % (<6.0)
--- NOTE | 2023-10-13 09:59 | HO.PM.IMPN ---
Subjective Subjective Date of Service: 10/13/23 Interval History: seen and examined this morning follow up for respiratory failure denies sob oxygen levels stable hypoglycemia again this am, asymptomatic. Review of Systems Review of Systems: Yes all other systems are reviewed and are negative Constitutional Constitutional: Denies chills and Denies fever(s) Cardiovascular Cardiovascular: Denies chest pain, Denies palpitations and Denies dyspnea Respiratory Respiratory: Reports cough and Denies dyspnea Gastrointestinal Gastrointestinal: Denies abdominal pain Endocrine Endocrine: Denies palpitations Physical Exam Vital Signs: Vital Signs: Last Vital Signs Temp 96.8 F 10/13/23 08:00 Pulse 89 10/13/23 08:00 Resp 20 10/13/23 08:00 BP 161/68 H 10/13/23 08:00 Pulse Ox 92 10/13/23 08:00 O2 Del Method Nasal Cannula 10/13/23 08:00 O2 Flow Rate 6 10/13/23 08:00 FiO2 45 10/10/23 11:18 Oxygen Flow Rate 15 10/02/23 22:41 BMI result Body Mass Index 35.0 Const: General: comfortable, no acute distress, alert and awake Nutritional Appearance: overweight Orientation/consciousness: patient oriented x3 Resp: Other: course breath sounds Effort & Inspection: normal respiratory effort, able to speak in complete sentences, no respiratory distress and no use of accessory muscles Cardio: Rate: regular rate GI: Inspection: No distended Palpation (GI): Soft to palpation and nontender Neuro: Other: grossly nonfocal General: patient oriented x3 and moves all extremities Extrem: General: Yes no pedal edema Objective Data Active Medications Acetaminophen (Acetaminophen 325 Mg Tablet) 650 mg PO Q6H PRN PRN Reason: Pain, Mild (Pain Scale 1-3) Albuterol/Ipratropium (Albuterol/Iprat 2.5/0.5mg 3 Ml Ampul.Neb) 3 ml INHALE RQ4H WHILE AWAKE PRN PRN Reason: Shortness of Breath/Wheezing Amlodipine Besylate (Amlodipine Besylate 2.5 Mg Tablet) 2.5 mg PO DAILY [facility]; Protocol Last Admin: 10/13/23 08:46 Dose: 2.5 mg Documented By: GARY Aspirin (Aspirin 81 Mg Tab.Chew) 81 mg PO DAILY [facility] Last Admin: 10/13/23 08:46 Dose: 81 mg Documented By: GARY Atorvastatin Calcium (Atorvastatin Calcium 80 Mg Tablet) 80 mg PO DAILY [facility] Last Admin: 10/13/23 08:46 Dose: 80 mg Documented By: GARY Carvedilol (Carvedilol 6.25 Mg Tablet) 6.25 mg PO BID [facility]; Protocol Last Admin: 10/13/23 08:46 Dose: 6.25 mg Documented By: GARY Clopidogrel Bisulfate (Clopidogrel Bisulfate 75 Mg Tablet) 75 mg PO DAILY [facility] Last Admin: 10/13/23 08:46 Dose: 75 mg Documented By: GARY Dextrose (Dextrose 50 % 25 Gm/50 Ml Syringe) 25 gm IVPUSH Q15M PRN; Protocol PRN Reason: per Hypoglycemia Standing Ord. Glucose (Glucose Gel 15 Gm Gel..Gram.) 15 gm PO Q15M PRN; Protocol PRN Reason: per Hypoglycemia Standing Ord. Last Admin: 10/12/23 07:52 Dose: 15 gm Documented By: ALYSSA Heparin Sodium (Porcine) (Heparin Sodium,Porcine 5,000 Unit/Ml Vial) 5,000 unit SUBCUT Q12H [facility] Last Admin: 10/13/23 02:52 Dose: 5,000 unit Documented By: MARY Insulin Glargine (Insulin Glargine,Hum.Rec.Anlog 100 Unit/Ml 10 Ml Vial) 8 unit SUBCUT BEDTIME [facility] Last Admin: 10/12/23 21:29 Dose: 8 unit Documented By: MARY Insulin Human Lispro (Insulin Lispro 100 Unit/Ml 3 Ml Vial) 0 unit SUBCUT QIDACHS [facility]; Protocol Last Admin: 10/13/23 07:27 Dose: Not Given Documented By: ISABEL Non-Admin Reason: No Insulin Coverage Isosorbide Mononitrate (Isosorbide Mononitrate 60 Mg Tab.Er.24h) 60 mg PO DAILY [facility]; Protocol Last Admin: 10/13/23 08:46 Dose: 60 mg Documented By: GARY Prednisone (Prednisone 20 Mg Tablet) 40 mg PO DAILY [facility] Stop: 10/18/23 08:59 Last Admin: 10/13/23 08:46 Dose: 40 mg Documented By: GARY Sodium Chloride (0.9 % Sodium Chloride Flush 3 Ml Syringe) 3 ml IVFLUSH QSHIFT [facility] Last Admin: 10/13/23 08:47 Dose: 3 ml Documented By: GARY Labs 10/13/23 06:13 10/13/23 06:13 Labs: Laboratory Results - last 24 hr 10/12/23 10/12/23 10/12/23 11:21 16:20 20:35 MCV MCH MCHC RDW Plt Count MPV Immature Gran % (Auto) Neut % (Auto) Lymph % (Auto) Addison % (Auto) Eos % (Auto) Baso % (Auto) Lymph # (Auto) Addison # (Auto) Eos # (Auto) Baso # (Auto) Abs Immat Gran (auto) Absolute Neuts (auto) Absolute Nucleated RBC Nucleated RBC % (auto) Smear Tech's Comments Anion Gap Estim Creat Clear Calc Estimated GFR POC Glucose 178 H 297 H 302 H Random Glucose Estimat Average Glucose Hemoglobin A1c % Calcium 10/13/23 10/13/23 10/13/23 06:13 07:24 07:45 MCV 87.7 MCH 28.9 MCHC 33.0 RDW 13.7 Plt Count 406 H D MPV 10.4 Immature Gran % (Auto) 1.5 H Neut % (Auto) 77.0 H Lymph % (Auto) 12.6 L Addison % (Auto) 7.9 Eos % (Auto) 0.8 Baso % (Auto) 0.2 Lymph # (Auto) 3.0 Addison # (Auto) 1.9 H Eos # (Auto) 0.2 Baso # (Auto) 0.1 Abs Immat Gran (auto) 0.35 H Absolute Neuts (auto) 18.3 H Absolute Nucleated RBC 0.000 Nucleated RBC % (auto) 0.0 Smear Tech's Comments VERIFIED Anion Gap 11 L Estim Creat Clear Calc 32.2 Estimated GFR 37 POC Glucose 40 L* 54 L* Random Glucose 42 L* Estimat Average Glucose 174 Hemoglobin A1c % 7.7 H Calcium 7.6 L 10/13/23 08:55 MCV MCH MCHC RDW Plt Count MPV Immature Gran % (Auto) Neut % (Auto) Lymph % (Auto) Addison % (Auto) Eos % (Auto) Baso % (Auto) Lymph # (Auto) Addison # (Auto) Eos # (Auto) Baso # (Auto) Abs Immat Gran (auto) Absolute Neuts (auto) Absolute Nucleated RBC Nucleated RBC % (auto) Smear Tech's Comments Anion Gap Estim Creat Clear Calc Estimated GFR POC Glucose 120 H Random Glucose Estimat Average Glucose Hemoglobin A1c % Calcium Assessment and Plan (1) MAE (acute kidney injury): Status: Acute (2) Acute and chronic respiratory failure: Status: Acute (3) Acute non-ST elevation myocardial infarction (NSTEMI): Status: Acute Plan 78 year old male with a PMH of insulin dependant DM, CAD s/p multiple stents, COPD/emphysema and chronic respiratory failure on 3L oxygen at baseline, HLD, CHF (EF unknown) and HTN who presented with respiratory symptoms and is diagnosed with pneumonia, sepsis, respiratory failure and NSTEMI. He will be admitted for further work up. Acute on chronic respiratory failure with hypoxia secondary to mutifocal pna and fluid overload pt says he is on 3-4L of oxygen at baseline, requiring high flow 40L/45% but now down to 6L oxymask completed 7 days of IV vanco and cefepime; RPP negative seen by pulmonary solumedrol transitioned to po prednisone VQ scan indeterminant, b/l doppler US negative for DVT repeat CXR 10/09 showing improvement in pneumonia s/p IV lasix, diuretics now on hold due to increasing creatinine acute on chronic HFpEF echo from with EF 60-65% with mild LVH and impaired relaxation on torsemide at baseline, currently on IV lasix currently overall still in positive fluid balance, BNP trending down will hold IV lasix for now as creatinine trending up slightly on torsemide at baseline, consider resuming - will discuss with nephrology DM2 with episodes of hypoglycemia and hyperglycemia hyperglycemia likely due to steroids; hypoglycemic am 10/12 and again this am despite decreasing lantus to 8U (asymptomatic hypoglycemia) eating 100% of meals will hold lantus and cover will sliding scale for now. follow insulin needs. check Hba1c jardiance on hold continue SSI, follow POCs MAE on CKD3 renal function trending back up on lisinopril at baseline - this has been on hold on torsemide at baseline - this has been on hold nephrology following will hold further diuretics for now follow BMP Severe Sepsis / Septic Shock secondary to multifocal pneumonia sepsis resolved S/P Levophed drip in ED likely secondary to underlying pneumonia completed abx NSTEMI/CAD s/p PCI x 3 echo completed -- normal LV with impaired relaxation; RMWA in the basal inferior and basal inferoseptal segments s/p IV heparin total 72 hours cardiology following continue imdur (on 120 at baseline, now on 60 daily), coreg asa and plavix and statin HTN on lisinopril at baseline - currently on hold likely due to MAE and low bp on admission started on low dose norvasc follow blood pressure closely HLD statin Full Code Attending Dr. Lawrence DVT pptx with heparin dispo: PT rec STR, pt now declining STR. 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 Need for continued hospitalization: oxygen requirement, close monitoring of kidneys and safe disposition Quality Stroke Does the patient have a stroke diagnosis?: No VTE Prior VTE?: No VTE Risk Level:: Medical - moderate - high VTE Device Contraindication: Treatment Not Indicated VTE Drug Contraindication: N/A - Med Ordered
[2023-10-13 11:11] VITALS: BP 147/60; PULSE 75; RESP 20; TEMP 36.3; O2SAT 91
[2023-10-13 11:47] LABS: Glucose, Whole Blood 154 mg/dL (60-115)
[2023-10-13] MEDS: Insulin Lispro 100 UNIT/ML 3 ML VIAL SUBCUT ×3 (12:00→21:23)
[2023-10-13 15:17] VITALS: BP 130/61; PULSE 77; RESP 20; TEMP 36.7; O2SAT 90
[2023-10-13 16:22] LABS: Glucose, Whole Blood 349 mg/dL (60-115)
[2023-10-13 19:52] VITALS: PULSE 73; RESP 19; TEMP 36.9; O2SAT 96
[2023-10-13 20:13] LABS: Glucose, Whole Blood 393 mg/dL (60-115)
[2023-10-13] MEDS: Docusate Sodium 100 MG CAPSULE PO (21:24)
[2023-10-13 23:32] VITALS: BP 155/74; PULSE 89; RESP 19; TEMP 36.1; O2SAT 95
[2023-10-14] MEDS: Heparin Sodium,Porcine 5,000 UNIT/ML VIAL 5000 UNIT SUBCUT ×2 (02:40→12:21)
[2023-10-14 03:38] VITALS: BP 159/67; PULSE 67; RESP 16; TEMP 36.2; O2SAT 95
[2023-10-14 07:50] VITALS: BP 158/87; PULSE 69; RESP 20; TEMP 36.6; O2SAT 97
[2023-10-14 07:51] LABS: Anion Gap 9 (12-20); Blood Urea Nitrogen 55 mg/dL (9-16); Calcium 7.2 mg/dL (8.4-10.2); Carbon Dioxide 23 mmol/L (22-29); Chloride 108 mmol/L (96-108); Creatinine Clr Calc Pharmacy 35.7; Estimated Glomerular Filt Rate 42; Glucose Random 117 mg/dL (60-115); Potassium 4.2 mmol/L (3.3-5.1); Sodium 136 mmol/L (135-145)
[2023-10-14 08:05] LABS: Glucose, Whole Blood 111 mg/dL (60-115)
[2023-10-14] MEDS: amLODIPine Besylate 2.5 MG TABLET PO (09:51)
[2023-10-14] MEDS: Atorvastatin Calcium 80 MG TABLET PO (09:51)
[2023-10-14] MEDS: Clopidogrel Bisulfate 75 MG TABLET PO (09:51)
[2023-10-14] MEDS: 0.9 % Sodium Chloride Flush 3 ML SYRINGE IVFLUSH (09:51)
[2023-10-14] MEDS: Isosorbide Mononitrate 60 MG TAB.ER.24H PO (09:51)
[2023-10-14] MEDS: Aspirin 81 MG TAB.CHEW PO (09:51)
[2023-10-14] MEDS: predniSONE 20 MG TABLET 40 MG PO (09:51)
[2023-10-14] MEDS: carvediloL 6.25 MG TABLET PO (09:52)
--- NOTE | 2023-10-14 11:15 | PM.DS ---
DS: Providers Provider Date of Service: 10/14/23 Date of admission: 10/03/23 10:35 Primary care physician: Elisa Lyman MD Consults: 10/03/23 09:09 Consult to Cardiology Stat Consulting Provider: Rafi Poewr Reason for consultation: NSTEMI Has provider been notified: Yes 10/03/23 10:38 Consult to Cardiology Routine Consulting Provider: [facility] [place] [facility] Reason for consultation: NSTEMI 10/06/23 13:37 Consult to Pulmonology Routine Consulting Provider: [facility] [place] [facility] Reason for consultation: hypoxia, multifocal pna 10/12/23 07:31 Consult to Nephrology Routine Consulting Provider: [facility] [place] [facility] Reason for consultation: mae Has provider been notified: No DS: Diagnosis Discharge Diagnosis (1) MAE (acute kidney injury): Status: Acute (2) Acute and chronic respiratory failure: Status: Acute (3) Acute non-ST elevation myocardial infarction (NSTEMI): Status: Acute DS: Summary Hospital Course Hospital Course: This is a 78 year old male with a PMH of insulin dependant DM, CAD s/p multiple stents, COPD/emphysema and chronic respiratory failure on 3L oxygen at baseline, HLD, CHF (EF unknown) and HTN who presents to [facility] [place] ED on 10/02/23 with complaints of rigors/chills and shortness of breath which began during the evening prior to admission. The history is obtained from the patient and his daughter who is bedside. Translation services are offered, but pt opts for family to translate. Apparently, the patient had been in his usual state of health prior to the events. Prior to the episode, he denies SOB, increasing cough, fevers, fatigue, chest pain. Denies decreased oral intake, nausea/vomiting/diarrhea. Denies abdominal pain. However, the evening before, the patient experienced nausea/vomiting/rigors and chills. Subsequently he had increasing shortness of breath and was noted to be hypoxic. He was afebrile at home. Upon arrival of EMS, the patient was saturating in the 80s on his baseline 3L. He was brought to the ED in a non-rebreather and appeared comfortable. Work up in the ED revealed fevers and imaging studies concerning for pneumonia. The patients ED course was complicated by hypotension requiring Levophed drip. Initial plan was for ICU admission, however, the patient was managed in the ED. He was treated with Levophed drip and now has been weaned off. He is currently on 14L of oxygen and appears to be comfortable. ED course was complicated by NSTEMI for which he has bene initiated on IV heparin, completed a bedside echo and reportedly has been evaluated by cardiology. 78-year-old man treated for acute on chronic hypoxic respiratory failure secondary to multifocal pneumonia and heart failure with preserved ejection fraction. patient initially treated for severe sepsis/septic shock secondary to multifocal pneumonia and he was treated with Levophed while in the ER but did not require ICU stay. Patient was requiring high-flow oxygen as high as 40 L and 45%. He completed 7 days of IV vancomycin and cefepime. Respiratory pathogen panel was negative. Seen evaluated by pulmonology with no new recommendation. V/Q scan was done to rule out PE which was indeterminate a bilateral lower extremity Dopplers were negative for DVT. The had multiple chest x-ray which slowly showed improvement in his pneumonia. Was treated with IV Lasix for the heart failure with preserved ejection fraction but Lasix was stopped due to MAE which is now stable close to patient's baseline. Patient will continue his torsemide at home. His hospital course was complicated by NSTEMI for which she was treated with 72 hours IV heparin, dual antiplatelet therapy and high intensity statin as well as Coreg and isosorbide. Plan is for outpatient myocardial perfusion imaging so he should follow-up with cardiology as outpatient. He also had some episodes of hypoglycemia and hyperglycemia. Likely secondary to the IV steroids. Due to the hypoglycemia his Lantus was decreased but now blood sugars are stable and he can continue his home dose. Hypertension. Several stop due to MAE, start on low-dose Norvasc 2.5 mg daily lipidemia. Continue high-dose statin Time Attestation Discharge coordination time: Greater than 30 minutes Quality: Safe Use of Opioids Does Pt have an Active Cancer Diagnosis on the Problem List?: No Quality: Stroke Does the patient have a stroke diagnosis?: No Physical Exam Vital Signs: Vital Signs: Last Vital Signs Temp 97.8 F 10/14/23 07:50 Pulse 69 10/14/23 07:50 Resp 20 10/14/23 07:50 BP 158/87 H 10/14/23 07:50 Pulse Ox 97 10/14/23 07:50 O2 Del Method Nasal Cannula 10/14/23 07:50 O2 Flow Rate 6 10/14/23 07:50 FiO2 45 10/10/23 11:18 Oxygen Flow Rate 15 10/02/23 22:41 BMI result Body Mass Index 35.0 DS: Data Data Completed and Pending Labs on day of discharge: Laboratory Results - last 24 hr 10/13/23 10/13/23 10/13/23 11:13 16:19 20:04 Hold Purple Top Sodium Potassium Chloride Carbon Dioxide Anion Gap BUN Creatinine Estim Creat Clear Calc Estimated GFR POC Glucose 154 H 349 H 393 H* Random Glucose Calcium 10/14/23 10/14/23 07:10 07:49 Hold Purple Top SEE NOTE Sodium 136 Potassium 4.2 Chloride 108 Carbon Dioxide 23 Anion Gap 9 L BUN 55 H Creatinine 1.60 H Estim Creat Clear Calc 35.7 Estimated GFR 42 POC Glucose 111 Random Glucose 117 H Calcium 7.2 L Discharge Plan Discharge Anticipated Discharge Date/Time: 10/14/23 11:05 Patient Disposition: Home Health Service Discharge Diagnosis: Acute hypoxic respiratory failure multifocal pneumonia acute congestive heart failure with preserved ejection fraction Diabetes mellitus type 2 with hypoglycemia and hyperglycemia MAE on CKD 3 Severe sepsis / septic shock NSTEMI Referrals: Rafi Power MD [Physician] - 1 Week ( schedule an appointment for outpatient myocardial perfusion imaging) Elisa Lyman MD [Primary Care Provider] - 1 Week Discharge Medications: New prednisone 20 mg Tablet See Taper PO DAILY Qty: 20 0RF Taper: Prednisone 40 mg daily for 2 Days and 0 Hour 30 mg daily for 2 Days and 0 Hour 20 mg daily for 2 Days and 0 Hour 10 mg daily for 2 Days and 0 Hour amlodipine 2.5 mg Tablet 2.5 mg PO DAILY Qty: 30 0RF Protocol: Hold for SBP< HOLD for SBP < : 90 Continued atorvastatin 80 mg tablet 80 mg PO DAILY carvedilol 6.25 mg tablet 6.25 mg PO BID clopidogrel 75 mg tablet 75 mg PO DAILY ferrous sulfate 325 mg (65 mg iron) tablet 325 mg PO DAILY aspirin 81 mg tablet,chewable 1 tab PO DAILY torsemide 10 mg Tablet 10 mg PO BID lisinopril 10 mg tablet 10 mg PO DAILY isosorbide mononitrate 60 mg tablet extended release 24 hr 120 mg PO DAILY Incruse Ellipta 62.5 mcg/actuation blister with device 1 inh inhalation DAILY Jardiance 10 mg tablet 10 mg PO DAILY insulin glargine [Lantus Solostar U-100 Insulin] 100 unit/mL (3 mL) insulin pen 28 unit subcut BEDTIME insulin aspart U-100 [Novolog FlexPen U-100 Insulin] 100 unit/mL (3 mL) insulin pen See Protocol subcut DIRECTED Protocol: Insulin Correction Scale Less than or equal to 110 ---- Give (units): 0 111 to 150 Give (units): 0 151 to 200 Give (units): 2 201 to 250 Give (units): 4 251 to 300 Give (units): 6 301 to 350 Give (units): 8 Greater than 350 Give (units): 10 Call MD if Blood Glucose > : 350 Discharge Orders: Discharge Order (Routine); Ordered 10/14/23 Ordered By: Mariana Gonzalez Diet: Advance to usual diet Activity on Discharge: As tolerated Stand Alone Forms: Patient Portal Discharge page Care Plan Goals: Continue on 3 liters of oxygen Health Concerns: Acute hypoxic respiratory failure multifocal pneumonia acute congestive heart failure with preserved ejection fraction Diabetes mellitus type 2 with hypoglycemia and hyperglycemia MAE on CKD 3 Severe sepsis / septic shock NSTEMI Plan of Treatment: Follow-up with primary care provider as needed Take all medications as prescribed schedule an appointment with cardiology for outpatient cardiac workup Assessment: See discharge summary
[2023-10-14 11:47] VITALS: BP 169/61; PULSE 69; RESP 20; TEMP 36.1; O2SAT 96
[2023-10-14 12:01] LABS: Glucose, Whole Blood 228 mg/dL (60-115)
[2023-10-14] MEDS: Insulin Lispro 100 UNIT/ML 3 ML VIAL SUBCUT (12:22)
--- NOTE | 2023-10-14 13:19 | MHC.CM.PN ---
IMM 10/14/23 Pt has been medically cleared for DC, he will go home via private transport, and will have home care services from [facility].
--- NOTE | 2023-10-14 15:12 | PM.CNNEP ---
History of Present Illness Reason for Consult Consult date: 10/14/23 Chief Complaint Chief complaint: Rigors History of Present Illness Narrative: 78 year old male with a PMH of insulin dependant DM, CAD s/p multiple stents, COPD/emphysema and chronic respiratory failure on 3L oxygen at baseline, HLD, CHF (EF unknown) and HTN who presents to [facility] [place] [facility] on 10/02/23 with complaints of rigors/chills and shortness of breath which began during the evening prior to admission. Prior to the episode, he denies SOB, increasing cough, fevers, fatigue, chest pain. Denies decreased oral intake, nausea/vomiting/diarrhea. Denies abdominal pain. However, the evening before, the patient experienced nausea/vomiting/rigors and chills. Subsequently he had increasing shortness of breath and was noted to be hypoxic. He was afebrile at home. Upon arrival of EMS, the patient was saturating in the 80s on his baseline 3L. He was brought to the ED in a non-rebreather and appeared comfortable. Work up in the ED revealed fevers and imaging studies concerning for pneumonia. The patients ED course was complicated by hypotension requiring Levophed drip. He was treated for multifocal pneumonia and heart failure with preserved ejection fraction. He completed 7 days of IV vancomycin and cefepime. V/Q scan was done to rule out PE which was indeterminate a bilateral lower extremity Dopplers were negative for DVT. The had multiple chest x-ray which slowly showed improvement in his pneumonia. Was treated with IV Lasix for the heart failure with preserved ejection fraction but Lasix was stopped due to MAE which is now stable close to patient's baseline. Nephrology was consulted to assist in his clinical care during his current hospital stay Review of Systems Review of Systems Yes all other systems are reviewed and are negative [facility] Past Medical History Medical History (Updated 10/07/23 @ 10:05 by Subha Lyons MD) Adult respiratory distress syndrome Hyperlipidemia Hypertension Diabetes mellitus, type 2 Chronic respiratory failure with hypoxia COPD (chronic obstructive pulmonary disease) CKD (chronic kidney disease) CHF (congestive heart failure) Coronary artery disease Family History Family History Other Cancer Surgical History Surgical History S/P coronary artery stent placement Social History Social History Household Members: Family Housing: House Do you presently have visiting nurse or other home services: Yes (once a month) Patient Tobacco Use Status: Former Tobacco user Second Hand Smoke Exposure: No service: No Meds Allergies Allergy/AdvReac Type Severity Reaction Status Date / Time No Known Allergies Allergy Verified 10/29/21 19:34 Active Medications: Current Medications Acetaminophen (Acetaminophen 325 Mg Tablet) 650 mg PO Q6H PRN PRN Reason: Pain, Mild (Pain Scale 1-3) Albuterol/Ipratropium (Albuterol/Iprat 2.5/0.5mg 3 Ml Ampul.Neb) 3 ml INHALE RQ4H WHILE AWAKE PRN PRN Reason: Shortness of Breath/Wheezing Amlodipine Besylate (Amlodipine Besylate 2.5 Mg Tablet) 2.5 mg PO DAILY [facility]; Protocol Last Admin: 10/14/23 09:51 Dose: 2.5 mg Aspirin (Aspirin 81 Mg Tab.Chew) 81 mg PO DAILY [facility] Last Admin: 10/14/23 09:51 Dose: 81 mg Atorvastatin Calcium (Atorvastatin Calcium 80 Mg Tablet) 80 mg PO DAILY [facility] Last Admin: 10/14/23 09:51 Dose: 80 mg Carvedilol (Carvedilol 6.25 Mg Tablet) 6.25 mg PO BID [facility]; Protocol Last Admin: 10/14/23 09:52 Dose: 6.25 mg Clopidogrel Bisulfate (Clopidogrel Bisulfate 75 Mg Tablet) 75 mg PO DAILY [facility] Last Admin: 10/14/23 09:51 Dose: 75 mg Dextrose (Dextrose 50 % 25 Gm/50 Ml Syringe) 25 gm IVPUSH Q15M PRN; Protocol PRN Reason: per Hypoglycemia Standing Ord. Docusate Sodium (Docusate Sodium 100 Mg Capsule) 100 mg PO BEDTIME [facility] Last Admin: 10/13/23 21:24 Dose: 100 mg Glucose (Glucose Gel 15 Gm Gel..Gram.) 15 gm PO Q15M PRN; Protocol PRN Reason: per Hypoglycemia Standing Ord. Last Admin: 10/12/23 07:52 Dose: 15 gm Heparin Sodium (Porcine) (Heparin Sodium,Porcine 5,000 Unit/Ml Vial) 5,000 unit SUBCUT Q12H [facility] Last Admin: 10/14/23 12:21 Dose: 5,000 unit Insulin Glargine (Insulin Glargine,Hum.Rec.Anlog 100 Unit/Ml 10 Ml Vial) 8 unit SUBCUT BEDTIME [facility] Last Admin: 10/12/23 21:29 Dose: 8 unit Insulin Human Lispro (Insulin Lispro 100 Unit/Ml 3 Ml Vial) 0 unit SUBCUT QIDACHS [facility]; Protocol Last Admin: 10/14/23 12:22 Dose: 2 unit Isosorbide Mononitrate (Isosorbide Mononitrate 60 Mg Tab.Er.24h) 60 mg PO DAILY [facility]; Protocol Last Admin: 10/14/23 09:51 Dose: 60 mg Polyethylene Glycol (Polyethylene Glycol 3350 17 Gm Powd.Pack) 17 gm PO DAILY PRN PRN Reason: Constipation Prednisone (Prednisone 20 Mg Tablet) 40 mg PO DAILY [facility] Stop: 10/18/23 08:59 Last Admin: 10/14/23 09:51 Dose: 40 mg Sodium Chloride (0.9 % Sodium Chloride Flush 3 Ml Syringe) 3 ml IVFLUSH QSHIFT [facility] Last Admin: 10/14/23 09:51 Dose: 3 ml Home Medications Medication Instructions Recorded Confirmed Last Taken Type aspirin 81 mg chewable tablet 1 tab PO DAILY 10/03/23 10/03/23 10/02/23 History atorvastatin 80 mg tablet 80 mg PO DAILY 10/03/23 10/03/23 10/02/23 History carvedilol 6.25 mg tablet 6.25 mg PO BID 10/03/23 10/03/23 10/02/23 History clopidogrel 75 mg tablet 75 mg PO DAILY 10/03/23 10/03/23 10/02/23 History empagliflozin 10 mg tablet 10 mg PO DAILY 10/03/23 10/03/23 10/02/23 History (Jardiance) ferrous sulfate 325 mg (65 mg 325 mg PO DAILY 10/03/23 10/03/23 10/02/23 History iron) tablet insulin aspart U-100 100 unit/mL See Protocol subcut DIRECTED 10/03/23 10/03/23 Unknown History (3 mL) subcutaneous pen (Novolog FlexPen U-100 Insulin aspart) insulin glargine 100 unit/mL (3 28 unit subcut BEDTIME 10/03/23 10/03/23 10/02/23 History mL) subcutaneous pen (Lantus Solostar U-100 Insulin) isosorbide mononitrate 60 mg 120 mg PO DAILY 10/03/23 10/03/23 10/02/23 History tablet,extended release 24 hr lisinopril 10 mg tablet 10 mg PO DAILY 10/03/23 10/03/23 10/02/23 History torsemide 10 mg tablet 10 mg PO BID 10/03/23 10/03/23 10/02/23 History umeclidinium 62.5 mcg/actuation 1 inh inhalation DAILY 10/03/23 10/03/23 10/02/23 History blister powder for inhalation (Incruse Ellipta) Physical Exam Vital Signs: Last Vital Signs Temp 97.0 F 10/14/23 11:47 Pulse 69 10/14/23 11:47 Resp 20 10/14/23 11:47 BP 169/61 H 10/14/23 11:47 Pulse Ox 96 10/14/23 11:47 O2 Del Method Nasal Cannula 10/14/23 11:47 O2 Flow Rate 6 10/14/23 11:47 FiO2 45 10/10/23 11:18 Oxygen Flow Rate 15 10/02/23 22:41 BMI result Body Mass Index 35.0 Const General: no acute distress Eyes EOM: EOMs intact bilaterally Resp Auscultation: diminished lung sounds Cardio Rate: regular rate Heart sounds: S1 normal heart sound present and S2 normal heart sound present GI Palpation (GI): Soft to palpation Skin General skin exam: no rashes or lesions noted Neuro General: moves all extremities Results Lab Results 10/13/23 06:13 10/14/23 07:10 Lab results: Chemistry 10/12/23 10/13/23 10/14/23 06:13 06:13 07:10 Sodium 136 138 136 Potassium 3.7 3.7 4.2 Carbon Dioxide 19 L 23 23 BUN 61 H 59 H 55 H Creatinine 1.94 H 1.77 H 1.60 H Calcium 7.6 L 7.6 L 7.2 L Hematology 10/13/23 06:13 WBC 23.7 H Hgb 11.8 L Plt Count 406 H D Assessment and Plan (1) MAE (acute kidney injury): Status: Acute Plan MAE due to compromise in renal perfusion with resultant tubular injury UO good; USS- no obstruction; U/A- nothing to suggest GN/AIN ACEI has been on hold. Renal function improving C/W current supportive care for now; Shall arrange office F/U in 1 month if D/Tomy Procedures Date of Service Date of Service: 10/14/23
--- NOTE | 2023-10-15 10:29 | P.F2F_ITS ---
Service Date Service Date: 10/15/23 Encounter Date of encounter: 10/15/23 Reasons for Services Signs and symptoms assessed: Hypoxia multifocal pneumonia CHF MAE Reason for retirement: CV/CP assess and/or care Reason for physical therapy: home safety and mobility and gait/transfer training Homebound: Leaving the home is medically contraindicated at this time without the asist of a device and/or another person due th the listed conditions above and below. Reason homebound: unsteady gait / fall risk Certification: Based on the above findings, I certify that this patient is confined to the home and needs intermittent retirement care, physical therapy and/or speech therapy, or continues to need occupational therapy. The patient is under my care, and I have initiated the establishment of the plan of care. The patient will be followed by a physician who will periodically review the plan of care. Time Spent With Patient Time: Total time managing care of this patient today ____ minutes.
== END 2023-10-14 16:32 | disposition home health service (06) | DRG 871 ==
LOC: HO.ED 10-03 07:41 → HO.EDOVER 10-03 10:50 → HO.IMC 10-03 13:06
PROVIDERS: Physician Assistant Medical; Student in an Organized Health Care Education/Training Program; Admitting Provider Family Medicine; Emergency Provider Internal Medicine; PCP Internal Medicine; Visit Provider Nurse Practitioner Acute Care
DX: A41.9 Sepsis, unspecified organism (principal); I21.4 Non-ST elevation (NSTEMI) myocardial infarction; J96.21 Acute and chronic respiratory failure with hypoxia; R65.21 Severe sepsis with septic shock; I50.33 Acute on chronic diastolic (congestive) heart failure; N17.9 Acute kidney failure, unspecified; I13.0 Hypertensive heart and chronic kidney disease with heart failure and stage 1 through stage 4 chronic kidney disease, or unspecified chronic kidney disease; J43.9 Emphysema, unspecified; E78.5 Hyperlipidemia, unspecified; N18.30 Chronic kidney disease, stage 3 unspecified; E11.649 Type 2 diabetes mellitus with hypoglycemia without coma; T36.8X5A Adverse effect of other systemic antibiotics, initial encounter; E11.22 Type 2 diabetes mellitus with diabetic chronic kidney disease; I25.10 Atherosclerotic heart disease of native coronary artery without angina pectoris; Z23 Encounter for immunization; E11.65 Type 2 diabetes mellitus with hyperglycemia; Z20.822 Contact with and (suspected) exposure to COVID-19; Z87.891 Personal history of nicotine dependence; Z99.81 Dependence on supplemental oxygen; Z95.5 Presence of coronary angioplasty implant and graft; Z79.4 Long term (current) use of insulin; Z79.02 Long term (current) use of antithrombotics/antiplatelets; Z79.82 Long term (current) use of aspirin; Z79.899 Other long term (current) drug therapy
CPT/HCPCS: 0241U; 36415; 71045; 76775; 78580; 80048; 80053; 80202; 82565; 82803; 82947; 83036; 83605; 83880; 84145; 84484; 85025; 85027; 85379; 85610; 85730; 87040; 87633; 90686; 93005; 93306; 93970; 94640; 97110; 97163; 97530; 99285; A9540; J0692; J0696; J1643; J1644; J1920; J1940; J2920; J3370; Q9957

== ENCOUNTER → 2023-10-03 10:35 | Outpatient (BNV) | payer OTHER, SELFPAY | PROVIDERS: Admitting Provider Family Medicine; Emergency Provider Internal Medicine; Visit Provider Family Medicine | DX: N17.9 Acute kidney failure, unspecified (principal); J96.21 Acute and chronic respiratory failure with hypoxia; I21.4 Non-ST elevation (NSTEMI) myocardial infarction | CPT/HCPCS: 99223; 99232; 99233; 99239; G0180 ==

== ENCOUNTER → 2023-10-03 10:35 | Outpatient (BNV) | payer OTHER, SELFPAY | PROVIDERS: Admitting Provider Family Medicine; Emergency Provider Internal Medicine; PCP Internal Medicine; Visit Provider Internal Medicine Nephrology | DX: N17.9 Acute kidney failure, unspecified (principal) | CPT/HCPCS: 99222; 99499 ==

== ENCOUNTER → 2023-10-03 10:35 | Outpatient (BNV) | payer OTHER, SELFPAY | PROVIDERS: Admitting Provider Family Medicine; Emergency Provider Internal Medicine; PCP Internal Medicine; Visit Provider Internal Medicine | DX: J18.9 Pneumonia, unspecified organism (principal); J80 Acute respiratory distress syndrome; I21.4 Non-ST elevation (NSTEMI) myocardial infarction | CPT/HCPCS: 99223 ==

== ENCOUNTER → 2023-10-03 10:35 | Outpatient (BNV) | payer OTHER, SELFPAY | PROVIDERS: Admitting Provider Family Medicine; Emergency Provider Internal Medicine; Visit Provider Internal Medicine Cardiovascular Disease | DX: I21.4 Non-ST elevation (NSTEMI) myocardial infarction (principal); I35.1 Nonrheumatic aortic (valve) insufficiency | CPT/HCPCS: 93306; 99222; 99233 ==

== ENCOUNTER 2023-10-29 17:29 | Inpatient (IN) | payer OTHER, SELFPAY ==
--- NOTE | ~2023-10-29 | XR_ITS ---
EXAMINATION: XR CHEST CLINICAL INFORMATION: Shortness of breath COMPARISON: Previous chest x-rays most recent 10/09/2023 TECHNIQUE: Frontal view of the chest was obtained. FINDINGS: The cardiac silhouette is enlarged but stable. MEMs Device projects over the right pulmonary hilum. There is diffuse mixed interstitial and alveolar pulmonary infiltrates, left greater than right. This may be slightly increased at the right lung base compared to previous exam. There is no pleural effusion or pneumothorax. Bony structures are unremarkable. XR/XR chest 1V IMPRESSION: Stable enlargement of the cardiac silhouette. Bilateral mixed interstitial and alveolar infiltrates, left greater than right. This may be increased at the right lung base compared to September 2023 exams.
--- NOTE | 2023-10-29 17:45 | ECG_ITS ---
Test Reason : Shortness of breath Blood Pressure : / mmHG Vent. Rate : 059 BPM Atrial Rate : 059 BPM P-R Int : 182 ms QRS Dur : 096 ms QT Int : 434 ms P-R-T Axes : 016 -02 082 degrees QTc Int : 429 ms Sinus bradycardia Nonspecific ST and T wave abnormality - lateral leads Borderline ECG When compared with ECG of 03-OCT-2023 02:48, Vent. rate has decreased BY 44 BPM Referred By: Tamiko Aguirre Electronically Signed By:MCKINLEY WARD
[2023-10-29 17:57] VITALS: BP 125/53; BP 138/77; PULSE 67; PULSE 68; RESP 26; TEMP 36.4; O2SAT 100; O2SAT 86; BMI 34.9
[2023-10-29] MEDS: Furosemide 100 MG/10 ML VIAL 80 MG IVPUSH (18:09)
--- NOTE | 2023-10-29 18:10 | ED_ITS ---
HPI - SOB/Dyspnea General Chief Complaint: Upper Respiratory Symptoms Stated Complaint: SOB and Weakness Time Seen by Provider: 10/29/23 17:45 Source: patient Mode of arrival: EMS History of Present Illness HPI Narrative: 78-year-old male who arrives via EMS for shortness of breath and noted at home to have oxygen saturation of 80% on EMS arrival and improved after application of supplemental oxygen, patient states he is short of breath but denies any chest pain and states he did feel somewhat dizzy as well. Related Data Home Medications Medication Instructions Recorded Confirmed aspirin 81 mg chewable tablet 1 tab PO DAILY 10/03/23 10/03/23 atorvastatin 80 mg tablet 80 mg PO DAILY 10/03/23 10/03/23 carvedilol 6.25 mg tablet 6.25 mg PO BID 10/03/23 10/03/23 clopidogrel 75 mg tablet 75 mg PO DAILY 10/03/23 10/03/23 empagliflozin 10 mg tablet 10 mg PO DAILY 10/03/23 10/03/23 (Jardiance) ferrous sulfate 325 mg (65 mg 325 mg PO DAILY 10/03/23 10/03/23 iron) tablet insulin aspart U-100 100 unit/mL See Protocol subcut DIRECTED 10/03/23 10/03/23 (3 mL) subcutaneous pen (Novolog FlexPen U-100 Insulin aspart) insulin glargine 100 unit/mL (3 28 unit subcut BEDTIME 10/03/23 10/03/23 mL) subcutaneous pen (Lantus Solostar U-100 Insulin) isosorbide mononitrate 60 mg 120 mg PO DAILY 10/03/23 10/03/23 tablet,extended release 24 hr lisinopril 10 mg tablet 10 mg PO DAILY 10/03/23 10/03/23 torsemide 10 mg tablet 10 mg PO BID 10/03/23 10/03/23 umeclidinium 62.5 mcg/actuation 1 inh inhalation DAILY 10/03/23 10/03/23 blister powder for inhalation (Incruse Ellipta) Previous Rx's Medication Instructions Recorded amlodipine 2.5 mg tablet 2.5 mg PO DAILY #30 tabs 10/14/23 prednisone 20 mg tablet See Taper PO DAILY #20 tabs 10/14/23 Allergies Allergy/AdvReac Type Severity Reaction Status Date / Time No Known Allergies Allergy Verified 10/29/21 19:34 Review of Systems 2 Review of Systems: Pertinent positives and negatives as stated in [facility] Past Medical History Source: nursing notes reviewed Medical History Acute non-ST elevation myocardial infarction (NSTEMI) Adult respiratory distress syndrome Hyperlipidemia Hypertension Diabetes mellitus, type 2 Chronic respiratory failure with hypoxia COPD (chronic obstructive pulmonary disease) CKD (chronic kidney disease) CHF (congestive heart failure) Coronary artery disease Surgical History S/P coronary artery stent placement Family History Family History Other Cancer Social History Social History Household Members: Family Housing: House Do you presently have visiting nurse or other home services: Yes (once a month) Patient Tobacco Use Status: Former Tobacco user Second Hand Smoke Exposure: No Advance Directives: No Advance Directives Information Provided: No service: No Physical Exam 2 Vital Signs: Vital Signs: Last Vital Signs Temp 97.7 F 10/29/23 21:48 Pulse 78 10/29/23 21:48 Resp 14 10/29/23 21:48 BP 150/63 H 10/29/23 21:48 Pulse Ox 92 10/29/23 21:48 O2 Del Method Oxymask 10/29/23 21:48 O2 Flow Rate 5 10/29/23 21:48 Oxygen Flow Rate 5 10/29/23 17:57 BMI result Body Mass Index 34.9 VITAL SIGNS: Reviewed. GENERAL: Well developed, well nourished, in no acute distress. HEAD: Normocephalic/atraumatic EYES: PERRLA, EOMI EARS: Ext canals without abnormality NOSE: Nares patent bilateral OROPHARYNX: no oral lesions noted, posterior pharynx clear NECK: Supple, no adenopathy LUNGS: Bibasilar rales with decreased breath sounds. SpO2<100> on non- rebreather CARDIOVASCULAR: Regular rate and rhythm without noted murmurs, no JVD but pitting extremity edema. ABDOMEN: Soft, non-tender, non-distended with bowel sounds. MUSCULOSKELETAL: No tenderness, deformities, or effusions noted on gross inspection. EXTREMITIES: No cyanosis, clubbing or edema. SKIN: Inspection of the skin reveals no rashes NEUROLOGIC: Alert and oriented x 3. Strength and sensation to light touch were grossly intact x 4. Medications Administered Discontinued Medications Generic Name Dose Route Start Last Admin Trade Name Arcadio PRN Reason Stop Dose Admin Furosemide 80 mg 10/29/23 17:45 10/29/23 18:09 Furosemide 100 Mg/10 Ml Vial IVPUSH 10/29/23 17:46 80 mg ONCE ONE Administration Protocol Piperacillin Sod/Tazobactam 50 mls @ 100 mls/hr 10/29/23 20:43 10/29/23 21:44 Sod 3.375 gm/ Sodium Chloride IV 10/29/23 21:12 100 mls/hr ONCE ONE Administration Medical Decision Making Medical Decision Making [facility] Narrative: 1745: 78-year-old male with history and clinical presentation, DDX: CHF exacerbation, rule out ACS, no clinical suspicion for COPD at this time. 1809: Informed by nursing staff that patient was oxygenating in to 83% despite supplemental oxygen at 5 L via OxyMask. Decision made to place patient on CPAP for peep support in effort to push fluid out of the lungs and will administer Lasix as well. 1920: I suspect infection, however chemistry lab results are still pending. I reviewed all investigations and hematologic indices show significant improvement in leukocytosis, there is a stable normocytic anemia and new thrombocytopenia at this time. Chemistry indices do not demonstrated change in renal function appears to be stable, there is no electrolyte or liver enzyme derangements. BNP-152 and in combination with clinical findings as well as chest x-ray findings most consistent with acute CHF exacerbation. Patient did require additional oxygen support on CPAP at 10. Chest x-ray demonstrates both interstitial and alveolar infiltrates, left greater than right and questionable increased since prior. 2044: My interpretation is that patient has a component of CHF exacerbation in the setting of what appears to be increased alveolar infiltrates likely contributing to the overall hypoxia and concerning for infection as mentioned above. Patient will have lactic acid and blood cultures drawn and received antibiotics. 2112: Discussed case with inpatient hospitalist who accepts admission. Differential Diagnosis Differential Diagnoses: The differential diagnosis associated with the presentation includes Please see the discussion above Admission/Observation Consideration of admission/observation: Escalation of care including admission/observation considered Please see the discussion above Consult Healthcare Provider Management of the patient was discussed with: Hospitalist Please see the discussion above Lab Data MDM Lab Attestation statement: I reviewed the patient's lab results. Please see the discussion above 10/29/23 18:46 10/29/23 19:49 Labs: Lab Results 10/29/23 10/29/23 10/29/23 Range/Units 18:46 19:49 21:25 WBC 13.0 H (4.8-10.8) X10*3/uL RBC 3.66 L (4.60-5.80) X10*6/uL Hgb 10.4 L (14.0-18.0) g/dl Hct 32.7 L (42.0-52.0) % MCV 89.3 (80.0-98.0) fL MCH 28.4 (27.0-33.0) pg MCHC 31.8 (31.0-36.0) g/dl RDW 15.3 (11.0-16.0) % Plt Count 156 L D (160-400) X10*3/uL MPV 12.2 (9.4-12.4) fL Immature Gran % (Auto) 0.4 (0.0-0.4) % Neut % (Auto) 83.3 H (45-73) % Lymph % (Auto) 7.6 L (20-40) % [place] % (Auto) 5.8 (2-11) % Eos % (Auto) 2.4 (0-4) % Baso % (Auto) 0.5 (0-2) % Lymph # (Auto) 1.0 L (1.2-4.9) X10*3/uL [place] # (Auto) 0.8 (0.1-1.2) X10*3/uL Eos # (Auto) 0.3 (0.0-0.4) X10*3/uL Baso # (Auto) 0.1 (0.0-0.2) X10*3/uL Abs Immat Gran (auto) 0.05 H (0.00-0.03) X10*3/uL Absolute Neuts (auto) 10.8 H (2.0-8.3) x10*3/uL Absolute Nucleated RBC 0.000 (0.0-0.012) X10*3/uL Nucleated RBC % (auto) 0.0 (0.0-0.2) /100WBC VBG pH (7.32-7.43) VBG pCO2 mmHg VBG pO2 mmHg VBG HCO3 (22-26) mmol/L VBG O2 Saturation % VBG Base Excess mmol/L Sodium 136 (135-145) mmol/L Potassium 4.9 (3.3-5.1) mmol/L Chloride 104 (96-108) mmol/L Carbon Dioxide 23 (22-29) mmol/L Anion Gap 14 (12-20) BUN 77 H (9-16) mg/dL Creatinine 1.64 H (0.5-1.4) mg/dL Estim Creat Clear Calc 34.8 Estimated GFR 41 Random Glucose 74 (60-115) mg/dL Lactic Acid 0.6 (0.5-2.0) mmol/L Calcium 7.5 L (8.4-10.2) mg/dL Total Bilirubin 0.5 (0.0-1.0) mg/dL AST 25 (5-37) U/L ALT 32 (0-40) U/L Alkaline Phosphatase 68 (39-117) U/L B-Natriuretic Peptide 152 H (<100) pg/mL Total Protein 6.5 (6.5-8.0) g/dL Albumin 3.1 L (3.5-5.0) g/dL Procalcitonin 0.08 ng/mL 10/29/23 Range/Units 21:34 WBC (4.8-10.8) X10*3/uL RBC (4.60-5.80) X10*6/uL Hgb (14.0-18.0) g/dl Hct (42.0-52.0) % MCV (80.0-98.0) fL MCH (27.0-33.0) pg MCHC (31.0-36.0) g/dl RDW (11.0-16.0) % Plt Count (160-400) X10*3/uL MPV (9.4-12.4) fL Immature Gran % (Auto) (0.0-0.4) % Neut % (Auto) (45-73) % Lymph % (Auto) (20-40) % [place] % (Auto) (2-11) % Eos % (Auto) (0-4) % Baso % (Auto) (0-2) % Lymph # (Auto) (1.2-4.9) X10*3/uL [place] # (Auto) (0.1-1.2) X10*3/uL Eos # (Auto) (0.0-0.4) X10*3/uL Baso # (Auto) (0.0-0.2) X10*3/uL Abs Immat Gran (auto) (0.00-0.03) X10*3/uL Absolute Neuts (auto) (2.0-8.3) x10*3/uL Absolute Nucleated RBC (0.0-0.012) X10*3/uL Nucleated RBC % (auto) (0.0-0.2) /100WBC VBG pH 7.32 (7.32-7.43) VBG pCO2 47 mmHg VBG pO2 35 mmHg VBG HCO3 25 (22-26) mmol/L VBG O2 Saturation 49.0 % VBG Base Excess -1.3 mmol/L Sodium (135-145) mmol/L Potassium (3.3-5.1) mmol/L Chloride (96-108) mmol/L Carbon Dioxide (22-29) mmol/L Anion Gap (12-20) BUN (9-16) mg/dL Creatinine (0.5-1.4) mg/dL Estim Creat Clear Calc Estimated GFR Random Glucose (60-115) mg/dL Lactic Acid (0.5-2.0) mmol/L Calcium (8.4-10.2) mg/dL Total Bilirubin (0.0-1.0) mg/dL AST (5-37) U/L ALT (0-40) U/L Alkaline Phosphatase (39-117) U/L B-Natriuretic Peptide (<100) pg/mL Total Protein (6.5-8.0) g/dL Albumin (3.5-5.0) g/dL Procalcitonin ng/mL Independent Interpretation I performed an independent interpretation of an: EKG Interpretation: Sinus bradycardia, HR -59, no STEMI, IA/QRS/QTC is within normal limits. Radiology Impression Discussion of test interpretation with radiology: I have reviewed the radiologist's reading. Radiologist Impression: Please see the discussion above External Record Review External record reviewed: Outpatient record, Prior outpatient labs and Prior outpatient radiology Chronic Conditions Patient?s care impacted by: Diabetes, Hypertension and Other COPD Critical Care Time Critical Care Time Critical Care Time: Yes Total Critical Care Time: 60 Attestation: I personally attest to this time spent taking care of the patient. Discharge Plan Discharge Clinical Impression: CHF exacerbation, Pneumonia Patient Disposition: Admitted As Inpatient
[2023-10-29 18:23] VITALS: PULSE 66; RESP 15; O2SAT 98
[2023-10-29 18:54] LABS: MANUAL DIFF FLAG NO
[2023-10-29 19:01] LABS: Basophils Absolute Auto 0.1 X10*3/uL (0.0-0.2); Basophils Percent Auto 0.5 % (0-2); Eosinophils Absolute Auto 0.3 X10*3/uL (0.0-0.4); Eosinophils Percent Auto 2.4 % (0-4); Hematocrit 32.7 % (42.0-52.0); Hemoglobin 10.4 g/dl (14.0-18.0); Imm Gran Abs Auto 0.05 X10*3/uL (0.00-0.03); Imm Gran Pct Auto 0.4 % (0.0-0.4); Lymphocytes Percent Auto 7.6 % (20-40); Mean Corpuscular HGB Conc 31.8 g/dl (31.0-36.0); Mean Corpuscular Hemoglobin 28.4 pg (27.0-33.0); Mean Corpuscular Volume 89.3 fL (80.0-98.0); Mean Platelet Volume 12.2 fL (9.4-12.4); Monocytes Absolute Auto 0.8 X10*3/uL (0.1-1.2); Monocytes Percent Auto 5.8 % (2-11); Neutrophils Absolute Auto 10.8 x10*3/uL (2.0-8.3); Neutrophils Percent Auto 83.3 % (45-73); Platelet Count 156 X10*3/uL (160-400); Red Blood Count 3.66 X10*6/uL (4.60-5.80); Red Cell Distribution Width 15.3 % (11.0-16.0)
[2023-10-29 19:39] VITALS: BP 137/42; PULSE 66; O2SAT 100
--- NOTE | 2023-10-29 19:54 | PC.NURSE ---
this rn assumed care of pt @ 1900. this rn assisted pt in using bedside urinal. pt urine output 350ml. pt tolerated well.
[2023-10-29 20:16] LABS: Alanine Aminotransferase 32 U/L (0-40); Albumin Level 3.1 g/dL (3.5-5.0); Alkaline Phosphatase 68 U/L (39-117); Anion Gap 14 (12-20); Aspartate Amino Transferase 25 U/L (5-37); Bilirubin Total 0.5 mg/dL (0.0-1.0); Blood Urea Nitrogen 77 mg/dL (9-16); Calcium 7.5 mg/dL (8.4-10.2); Carbon Dioxide 23 mmol/L (22-29); Chloride 104 mmol/L (96-108); Creatinine Clr Calc Pharmacy 34.8; Estimated Glomerular Filt Rate 41; Glucose Random 74 mg/dL (60-115); Potassium 4.9 mmol/L (3.3-5.1); Sodium 136 mmol/L (135-145); Total Protein 6.5 g/dL (6.5-8.0)
[2023-10-29 20:19] LABS: B Type Natriuretic Peptide 152 pg/mL (<100)
[2023-10-29 21:27] LABS: Procalcitonin 0.08 ng/mL
[2023-10-29 21:37] LABS: Venous Blood Gas Refer to POC result
[2023-10-29 21:38] LABS: VBG Base Excess -1.3 mmol/L; VBG HCO3 25 mmol/L (22-26); VBG pCO2 47 mmHg; VBG pH 7.32 (7.32-7.43); VBG pO2 35 mmHg
[2023-10-29] MEDS: Piperacillin Sodium/Tazobactam 3.375 GM in 0.9 % Sodium Chloride 50 ML IV (21:44)
[2023-10-29 21:47] LABS: Lactic Acid 0.6 mmol/L (0.5-2.0)
[2023-10-29 21:48] VITALS: BP 150/63; PULSE 78; RESP 14; TEMP 36.5; O2SAT 92
--- NOTE | 2023-10-29 21:56 | PHA.MEDREC ---
Pharmacy Consult ? Medication Reconciliation Pharmacy has completed the medication reconciliation. Patient family had list of medications from May. Confirmed doses that were different from the list as well as medications missing from the list. Rianna Wright, AceD
[2023-10-29 22:19] LABS: Appearance Urine Clear; Color Urine Yellow; Glucose Urine UA 100 mg/dL (Negative); Leukocyte Esterase Urine Negative (Negative); Nitrite Urine Negative (Negative); PH 5.5 (5.0-9.0); Urine Blood Negative (Negative); Urine Ketones Negative (Negative); Urine Protein Negative (Neg-Trace)
--- NOTE | 2023-10-29 22:20 | P.HPHOSP_ITS ---
History of Present Illness Date of Service: 10/29/23 Attending physician on admission: Luis Antonio Gooden Chief Complaint: jose, hypoxia 78-year-old male with history of insulin-dependent type 2 diabetes, hypertension, hyperlipidemia, COPD with chronic hypoxemic respiratory failure on 3 L supplemental O2 at baseline, CKD stage 3, heart failure with preserved ejection fraction, coronary artery disease with history of NSTEMI on DAPT, history of ARDS presented to the ED earlier today for evaluation of dyspnea on exertion and hypoxia. The patient's daughter reports he has had increased activity over the last 24 hours. Today while walking up for stairs, patient became acutely dyspneic despite wearing 4 L supplemental O2 and she reports his oxygen was noted to be around 75% and called EMS. She also reports increased bilateral lower extremity edema. He does endorse orthopnea but denies any PND. Denies any sick contacts. No fevers, chills, sore throat, congestion, abdominal pain, nausea, vomiting, diarrhea, urinary symptoms, cough, lightheadedness, palpitations, shortness of breath at rest, or chest pain. Patient was recently admitted to our facility from 10/03/2023-10/14/23 found to have multifocal pneumonia and NSTEMI. He reports he felt well following discharge. On arrival, patient noted to be tachypneic to 26, vitals otherwise stable. He was brought in by EMS on OxyMask at 5 L. Briefly was treated with CPAP due to increased work of breathing weaned back to OxyMask at 5 L now maintaining oximetry around 91-92%. He has a leukocytosis of 13.0, though this does appear to be chronic. Renal function consistent with baseline, electrolyte levels normal except for calcium of 7.5 (corrected calcium 7.8). BNP 152. Procalcitonin 0.08. Urinalysis unremarkable. Chest x-ray shows bilateral mixed interstitial and alveolar infiltrates, left greater than right which may be increased at the right lung base compared to September 2023. EKG shows sinus bradycardia, rate 59, no ST/T-wave abnormality. In the ED, has been given 80 mg IV Lasix and 3.375 g Zosyn. Review of Systems 2 Review of Systems: General: No fevers, malaise, unintentional weight loss HEENT: No blurred vision, diplopia. No sore throat, nasal congestion, rhinorrhea, sinus pain, ear pain Cardiovascular: No chest pain, palpitations. +BLE edema Respiratory: +JOSE, +orthopnea. No shortness of breath at rest, wheezing, cough GI: No abdominal pain, nausea, vomiting, diarrhea : No dysuria, hematuria, increased urinary frequency MSK: No myalgia, back pain Neuro: No headaches, weakness, paresthesias Skin: No rashes or lesions [facility] Medical History Acute non-ST elevation myocardial infarction (NSTEMI) Adult respiratory distress syndrome Hyperlipidemia Hypertension Diabetes mellitus, type 2 Chronic respiratory failure with hypoxia COPD (chronic obstructive pulmonary disease) CKD (chronic kidney disease) CHF (congestive heart failure) Coronary artery disease Family History Other Cancer Surgical History S/P coronary artery stent placement Social History Household Members: Family Housing: House Do you presently have visiting nurse or other home services: Yes (once a month) Patient Tobacco Use Status: Former Tobacco user Second Hand Smoke Exposure: No Advance Directives: No Advance Directives Information Provided: No service: No Meds Allergies Allergy/AdvReac Type Severity Reaction Status Date / Time No Known Allergies Allergy Verified 10/29/21 19:34 Active Medications: Current Medications Acetaminophen (Acetaminophen 325 Mg Tablet) 650 mg PO Q6H PRN PRN Reason: Pain, Mild (Pain Scale 1-3) Furosemide (Furosemide 40 Mg/4 Ml Vial) 40 mg IVPUSH DAILY [facility]; Protocol Melatonin (Melatonin 3 Mg Tablet) 3 mg PO BEDTIME PRN PRN Reason: Insomnia Ondansetron HCl (Ondansetron Hcl 4 Mg/2 Ml Vial) 4 mg IVPUSH Q8H PRN PRN Reason: Nausea and Vomiting Senna (Sennosides 8.6 Mg Tablet) 17.2 mg PO BEDTIME PRN PRN Reason: Constipation Sodium Chloride (0.9 % Sodium Chloride Flush 3 Ml Syringe) [facility] Medications Medication Instructions Recorded Confirmed Last Taken Type aspirin 81 mg chewable tablet 1 tab PO DAILY 10/03/23 10/29/23 10/29/23 History atorvastatin 80 mg tablet 80 mg PO DAILY 10/03/23 10/29/23 10/29/23 History carvedilol 6.25 mg tablet 6.25 mg PO BID 10/03/23 10/29/23 10/29/23 History clopidogrel 75 mg tablet 75 mg PO DAILY 10/03/23 10/29/23 10/29/23 History empagliflozin 10 mg tablet 10 mg PO DAILY 10/03/23 10/29/23 10/29/23 History (Jardiance) ferrous sulfate 325 mg (65 mg 325 mg PO DAILY 10/03/23 10/29/23 10/29/23 History iron) tablet insulin aspart U-100 100 unit/mL See Protocol subcut DIRECTED 10/03/23 10/29/23 10/29/23 History (3 mL) subcutaneous pen (Novolog FlexPen U-100 Insulin aspart) insulin glargine 100 unit/mL (3 25 unit subcut BEDTIME 10/03/23 10/29/23 10/28/23 History mL) subcutaneous pen (Lantus Solostar U-100 Insulin) isosorbide mononitrate 60 mg 120 mg PO DAILY 10/03/23 10/29/23 10/29/23 History tablet,extended release 24 hr lisinopril 10 mg tablet 10 mg PO DAILY 10/03/23 10/29/23 10/29/23 History torsemide 10 mg tablet 10 mg PO BID 10/03/23 10/29/23 10/29/23 History umeclidinium 62.5 mcg/actuation 1 inh inhalation DAILY 10/03/23 10/29/23 10/29/23 History blister powder for inhalation (Incruse Ellipta) ipratropium 0.5 mg-albuterol 3 mg 3 ml inhalation Q6H PRN Shortness 10/29/23 10/29/23 Unknown History (2.5 mg base)/3 mL nebulization Of Breath soln nitroglycerin 0.4 mg sublingual 0.4 mg sublingual Q5M PRN Chest 10/29/23 10/29/23 Unknown History tablet Pain nystatin 100,000 unit/gram topical 1 appl topical BID PRN Rash 10/29/23 10/29/23 Unknown History powder vit C 250 mg-vit E 90 mg-zinc 40 1 cap PO BID 10/29/23 10/29/23 10/29/23 History mg-copper 1 [id number] capsule (PreserVision AREDS-2) Physical Exam 2 Vital Signs and Narrative: Vital Signs: Last Vital Signs Temp 97.7 F 10/29/23 21:48 Pulse 78 10/29/23 21:48 Resp 14 10/29/23 21:48 BP 150/63 H 10/29/23 21:48 Pulse Ox 92 10/29/23 21:48 O2 Del Method Oxymask 10/29/23 21:48 O2 Flow Rate 5 10/29/23 21:48 Oxygen Flow Rate 5 10/29/23 17:57 BMI result Body Mass Index 34.9 Constitutional - Awake and Alert, No apparent distress Eyes - PERRLA, EOMI Cardiovascular - S1S2, RRR, 3+ RLE edema, 2+ LLE edema Respiratory - Normal lung expansion, Normal respiratory effort, No respiratory distress on 5L O2, faint scattered crackles bilaterally Gastrointestinal - NT / ND; +BS; No rebound or guarding Extremities - no calf tenderness bilaterally, no swelling Skin - Warm/Dry Neurological - Alert & oriented x3 Psychological - Appropriate affect Results Labs 10/29/23 18:46 10/29/23 19:49 Labs: Laboratory Results - last 24 hr 10/29/23 10/29/23 10/29/23 18:46 19:49 21:25 MCV 89.3 MCH 28.4 MCHC 31.8 RDW 15.3 Plt Count 156 L D MPV 12.2 Immature Gran % (Auto) 0.4 Neut % (Auto) 83.3 H Lymph % (Auto) 7.6 L [place] % (Auto) 5.8 Eos % (Auto) 2.4 Baso % (Auto) 0.5 Lymph # (Auto) 1.0 L [place] # (Auto) 0.8 Eos # (Auto) 0.3 Baso # (Auto) 0.1 Abs Immat Gran (auto) 0.05 H Absolute Neuts (auto) 10.8 H Absolute Nucleated RBC 0.000 Nucleated RBC % (auto) 0.0 VBG pH VBG pCO2 VBG pO2 VBG HCO3 VBG O2 Saturation VBG Base Excess Anion Gap 14 Estim Creat Clear Calc 34.8 Estimated GFR 41 Random Glucose 74 Lactic Acid 0.6 Calcium 7.5 L Total Bilirubin 0.5 AST 25 ALT 32 Alkaline Phosphatase 68 B-Natriuretic Peptide 152 H Total Protein 6.5 Albumin 3.1 L Procalcitonin 0.08 10/29/23 21:34 MCV MCH MCHC RDW Plt Count MPV Immature Gran % (Auto) Neut % (Auto) Lymph % (Auto) [place] % (Auto) Eos % (Auto) Baso % (Auto) Lymph # (Auto) [place] # (Auto) Eos # (Auto) Baso # (Auto) Abs Immat Gran (auto) Absolute Neuts (auto) Absolute Nucleated RBC Nucleated RBC % (auto) VBG pH 7.32 VBG pCO2 47 VBG pO2 35 VBG HCO3 25 VBG O2 Saturation 49.0 VBG Base Excess -1.3 Anion Gap Estim Creat Clear Calc Estimated GFR Random Glucose Lactic Acid Calcium Total Bilirubin AST ALT Alkaline Phosphatase B-Natriuretic Peptide Total Protein Albumin Procalcitonin Imaging Radiologist's Impressions: Impressions Chest X-Ray 10/29/23 18:30 IMPRESSION: Stable enlargement of the cardiac silhouette. Bilateral mixed interstitial and alveolar infiltrates, left greater than right. This may be increased at the right lung base compared to September 2023 exams. Assessment and Plan (1) CHF exacerbation: Status: Acute Plan 78-year-old male with history of insulin-dependent type 2 diabetes, hypertension, hyperlipidemia, COPD with chronic hypoxemic respiratory failure on 3 L supplemental O2 at baseline, CKD stage 3, heart failure with preserved ejection fraction, coronary artery disease with history of NSTEMI on DAPT, history of ARDS admitted for acute CHF exacerbation with acute on chronic hypoxemic respiratory failure. # acute on chronic hypoxemic respiratory failure with acute CHF exacerbation -last echo 09/2023 showed normal LV systolic function with EF 60-65% with mildly impaired relaxation filling pattern -BNP slightly elevated at 152 but clinically symptomatic with orthopnea, dyspnea on exertion, bilateral lower extremity edema -VBG reassuring -continue supplemental O2 to maintain oximetry greater than 92%, wean as tolerated (uses 3 L O2 at baseline) -40 mg IV Lasix daily -continue Jardiance -strict I&O -daily weights -cardiac diet -follow BMP, BNP # bilateral lower lobe infiltrates on CXR -recently admitted for multifocal pneumonia with discharge on 10/15 -clinically not symptomatic with pneumonia. No fevers, cough. Leukocytosis of 13.3 appears chronic -defer additional antibiotic therapy at this time -follow clinically # insulin-dependent type 2 diabetes -reasonably controlled for age with A1c of 7.7% -dose adjusted basal insulin -POC glucose -diabetic diet -Humalog on sliding scale -continue Jardiance # COPD with chronic hypoxemic respiratory failure -no acute exacerbation of COPD -continue maintenance inhalers, albuterol p.r.n. # CAD H/O NSTEMI/HLD -no anginal chest pain, EKG is nonischemic -continue DAPT, carvedilol, statin, isosorbide # hypertension -blood pressure reasonably controlled -continue carvedilol, lisinopril, isosorbide, amlodipine # CKD stage 3 -renal function baseline # chronic normocytic anemia -continue ferrous sulfate DVT prophylaxis-heparin Full code Patient requires inpatient stay at least 2 midnights for management of exacerbation of congestive heart failure with acute on chronic hypoxemic respiratory failure requiring IV diuresis, close monitoring of I and O as well as monitoring of renal function and electrolyte levels and titration of supplemental O2. Quality Stroke Does the patient have a stroke diagnosis?: No VTE Prior VTE?: No VTE Risk Level:: Medical - moderate - high VTE Device Contraindication: Treatment Not Indicated VTE Drug Contraindication: N/A - Med Ordered
--- NOTE | 2023-10-29 22:55 | PC.NURSE ---
late entry- urinary output of 620ml
[2023-10-29 22:57] LABS: Glucose, Whole Blood 120 mg/dL (60-115)
[2023-10-29] MEDS: Heparin Sodium,Porcine 5,000 UNIT/ML VIAL 5000 UNIT SUBCUT (23:01)
[2023-10-29] MEDS: Insulin Glargine,Hum.rec.anlog 100 UNIT/ML 10 ML VIAL 19 UNIT SUBCUT (23:01)
[2023-10-29] MEDS: carvediloL 6.25 MG TABLET PO (23:02)
[2023-10-29] MEDS: 0.9 % Sodium Chloride Flush 3 ML SYRINGE IVFLUSH (23:06)
[2023-10-29 23:32] VITALS: PULSE 73; O2SAT 96
--- NOTE | 2023-10-29 23:34 | PC.NURSE ---
pt oxygenating well on oxymask 100% on 4 lpm, pt titrated down to 4 lptm, per RT pt okay to titrate off oxymask trial NC. pt spo2 96% on 4 L NC
[2023-10-29 23:43] VITALS: BP 130/50; PULSE 82; RESP 20; TEMP 36.9; O2SAT 92
--- NOTE | 2023-10-29 23:45 | MHC.EDTECH ---
This tech assumed care of patient at 2300,Patient was changed into hospital attire,patient refused to take pajama bottoms off.belonging list completed and copy placed in chart. Patient urinated 600MLS in urinal,hourly rounds and vitals completed and call bhakta within reach
[2023-10-30] VITALS (9 sets, daily range): BP systolic 122–176; BP diastolic 55–67; PULSE 71–96; RESP 16–22; TEMP 36–37.4; O2SAT 82–96
--- NOTE | 2023-10-30 01:28 | MHC.EDTECH ---
Hourly rounds completed,patient is sleeping at this time.
--- NOTE | 2023-10-30 02:54 | MHC.EDTECH ---
Patient urinated 600MLS in urinal
[2023-10-30 05:03] LABS: MANUAL DIFF FLAG NO
[2023-10-30 05:06] LABS: Basophils Percent Auto 0.4 % (0-2); Eosinophils Absolute Auto 0.5 X10*3/uL (0.0-0.4); Eosinophils Percent Auto 4.5 % (0-4); Hematocrit 32.8 % (42.0-52.0); Hemoglobin 10.6 g/dl (14.0-18.0); Imm Gran Abs Auto 0.03 X10*3/uL (0.00-0.03); Imm Gran Pct Auto 0.3 % (0.0-0.4); Lymphocytes Absolute Auto 1.5 X10*3/uL (1.2-4.9); Lymphocytes Percent Auto 14.9 % (20-40); Mean Corpuscular HGB Conc 32.3 g/dl (31.0-36.0); Mean Corpuscular Hemoglobin 28.2 pg (27.0-33.0); Mean Corpuscular Volume 87.2 fL (80.0-98.0); Monocytes Absolute Auto 0.8 X10*3/uL (0.1-1.2); Monocytes Percent Auto 7.7 % (2-11); Neutrophils Absolute Auto 7.2 x10*3/uL (2.0-8.3); Neutrophils Percent Auto 72.2 % (45-73); Platelet Count 161 X10*3/uL (160-400); Red Blood Count 3.76 X10*6/uL (4.60-5.80); Red Cell Distribution Width 15.1 % (11.0-16.0)
[2023-10-30 05:18] LABS: Anion Gap 15 (12-20); Blood Urea Nitrogen 72 mg/dL (9-16); Calcium 7.5 mg/dL (8.4-10.2); Carbon Dioxide 23 mmol/L (22-29); Chloride 105 mmol/L (96-108); Creatinine Clr Calc Pharmacy 31.5; Estimated Glomerular Filt Rate 36; Glucose Random 104 mg/dL (60-115); Potassium 4.4 mmol/L (3.3-5.1); Sodium 139 mmol/L (135-145)
[2023-10-30 07:35] LABS: Glucose, Whole Blood 52 mg/dL (60-115)
[2023-10-30] MEDS: Calcium + Vitamin D 250 MG TABLET 500 MG PO ×2 (08:40→16:25)
[2023-10-30] MEDS: Isosorbide Mononitrate 60 MG TAB.ER.24H 120 MG PO (08:40)
[2023-10-30] MEDS: Multivitamin TABLET 1 TAB PO (08:40)
[2023-10-30] MEDS: lisinopriL 10 MG TABLET PO (08:40)
[2023-10-30] MEDS: amLODIPine Besylate 2.5 MG TABLET PO (08:40)
[2023-10-30] MEDS: Aspirin 81 MG TAB.CHEW PO (08:40)
[2023-10-30] MEDS: Furosemide 40 MG/4 ML VIAL IVPUSH (08:41)
[2023-10-30] MEDS: carvediloL 6.25 MG TABLET PO ×2 (08:41→21:31)
[2023-10-30] MEDS: Ferrous Sulfate 324 MG TABLET.DR PO (08:41)
[2023-10-30] MEDS: Atorvastatin Calcium 80 MG TABLET PO (08:41)
[2023-10-30] MEDS: 0.9 % Sodium Chloride Flush 3 ML SYRINGE IVFLUSH ×3 (08:41→21:32)
[2023-10-30] MEDS: Clopidogrel Bisulfate 75 MG TABLET PO (08:41)
[2023-10-30 09:39] LABS: Glucose, Whole Blood 165 mg/dL (60-115)
--- NOTE | 2023-10-30 10:12 | P.PNIM_ITS ---
Subjective Subjective Date of Service: 10/30/23 Interval History: dyspnea improved negative 1770 mL thus far no chest pain This history was taken in Hungarian from the patient. Review of Systems Review of Systems: Yes all other systems are reviewed and are negative Physical Exam 2 Vital Signs: Vital Signs: Last Vital Signs Temp 98.4 F 10/29/23 23:43 Pulse 79 10/30/23 08:47 Resp 17 10/30/23 08:47 BP 176/62 H 10/30/23 08:47 Pulse Ox 94 10/30/23 08:47 O2 Del Method Nasal Cannula 10/30/23 08:47 O2 Flow Rate 3 10/30/23 08:47 Oxygen Flow Rate 4 10/29/23 23:32 BMI result Body Mass Index 34.9 Gen: in no acute distress HEENT: sclera anicteric, moist mucus membranes Neck: supple Lungs: diminished Heart: regular rate and rhythm, no murmurs Abd: soft, non-tender, non-distended Ext: 1+ bilateral lower extremity edema Skin: warm/well-perfused Neuro: alert and oriented x3, no focal findings Psych: appropriate affect Objective Data Active Medications Acetaminophen (Acetaminophen 325 Mg Tablet) 650 mg PO Q6H PRN PRN Reason: Pain, Mild (Pain Scale 1-3) Albuterol/Ipratropium (Albuterol/Iprat 2.5/0.5mg 3 Ml Ampul.Neb) 3 ml INHALE Q6H PRN PRN Reason: Shortness Of Breath Amlodipine Besylate (Amlodipine Besylate 2.5 Mg Tablet) 2.5 mg PO DAILY [facility]; Protocol Last Admin: 10/30/23 08:40 Dose: 2.5 mg Documented By: JEY Aspirin (Aspirin 81 Mg Tab.Chew) 81 mg PO DAILY [facility] Last Admin: 10/30/23 08:40 Dose: 81 mg Documented By: JEY Atorvastatin Calcium (Atorvastatin Calcium 80 Mg Tablet) 80 mg PO DAILY [facility] Last Admin: 10/30/23 08:41 Dose: 80 mg Documented By: JEY Calcium Carbonate/Cholecalciferol (Calcium + Vitamin D 250 Mg Tablet) 500 mg PO BIDWM [facility] Last Admin: 10/30/23 08:40 Dose: 500 mg Documented By: JEY Carvedilol (Carvedilol 6.25 Mg Tablet) 6.25 mg PO BID [facility]; Protocol Last Admin: 10/30/23 08:41 Dose: 6.25 mg Documented By: JEY Clopidogrel Bisulfate (Clopidogrel Bisulfate 75 Mg Tablet) 75 mg PO DAILY [facility] Last Admin: 10/30/23 08:41 Dose: 75 mg Documented By: JEY Dextrose (Dextrose 50 % 25 Gm/50 Ml Syringe) 25 gm IVPUSH Q15M PRN; Protocol PRN Reason: per Hypoglycemia Standing Ord. Empagliflozin (Empagliflozin 10 Mg Tablet) 10 mg PO DAILY [facility] Ferrous Sulfate (Ferrous Sulfate 324 Mg Tablet.Dr) 324 mg PO DAILY [facility] Last Admin: 10/30/23 08:41 Dose: 324 mg Documented By: JEY Furosemide (Furosemide 40 Mg/4 Ml Vial) 40 mg IVPUSH DAILY [facility]; Protocol Last Admin: 10/30/23 08:41 Dose: 40 mg Documented By: JEY Glucose (Glucose Gel 15 Gm Gel..Gram.) 15 gm PO Q15M PRN; Protocol PRN Reason: per Hypoglycemia Standing Ord. Heparin Sodium (Porcine) (Heparin Sodium,Porcine 5,000 Unit/Ml Vial) 5,000 unit SUBCUT Q12H [facility] Last Admin: 10/29/23 23:01 Dose: 5,000 unit Documented By: GIN Insulin Glargine (Insulin Glargine,Hum.Rec.Anlog 100 Unit/Ml 10 Ml Vial) 19 unit SUBCUT BEDTIME [facility] Last Admin: 10/29/23 23:01 Dose: 19 unit Documented By: GIN Insulin Human Lispro (Insulin Lispro 100 Unit/Ml 3 Ml Vial) 0 unit SUBCUT QIDACHS [facility]; Protocol Last Admin: 10/30/23 08:41 Dose: Not Given Documented By: JEY Non-Admin Reason: See Note Isosorbide Mononitrate (Isosorbide Mononitrate 60 Mg Tab.Er.24h) 120 mg PO DAILY [facility]; Protocol Last Admin: 10/30/23 08:40 Dose: 120 mg Documented By: JEY Lisinopril (Lisinopril 10 Mg Tablet) 10 mg PO DAILY [facility]; Protocol Last Admin: 10/30/23 08:40 Dose: 10 mg Documented By: JEY Melatonin (Melatonin 3 Mg Tablet) 3 mg PO BEDTIME PRN PRN Reason: Insomnia Multivitamins/Vitamin C (Multivitamin Tablet) 1 tab PO DAILY [facility] Last Admin: 10/30/23 08:40 Dose: 1 tab Documented By: JEY Nitroglycerin (Nitroglycerin 0.4 Mg Tab.Subl) 0.4 mg SUBLINGUAL Q5M PRN PRN Reason: Chest Pain Nystatin (Nystatin Powder 15 Gm Bottle) 1 appl TOPICAL BID PRN; Protocol PRN Reason: Rash Ondansetron HCl (Ondansetron Hcl 4 Mg/2 Ml Vial) 4 mg IVPUSH Q8H PRN PRN Reason: Nausea and Vomiting Senna (Sennosides 8.6 Mg Tablet) 17.2 mg PO BEDTIME PRN PRN Reason: Constipation Sodium Chloride (0.9 % Sodium Chloride Flush 3 Ml Syringe) 3 ml IVFLUSH QSHIFT [facility] Last Admin: 10/30/23 08:41 Dose: 3 ml Documented By: JEY Tiotropium Brandon (Tiotropium Brandon 2.5 Mcg 1 Puff/2.5 Mcg Mist.Inhal) 1 puff INHALE RDAILY [facility] Last Admin: 10/30/23 08:32 Dose: Not Given Documented By: KADY Non-Admin Reason: Med Not Available Labs 10/30/23 04:56 10/30/23 04:56 Labs: Laboratory Results - last 24 hr 10/29/23 10/29/23 10/29/23 18:46 19:49 21:25 MCV 89.3 MCH 28.4 MCHC 31.8 RDW 15.3 Plt Count 156 L D MPV 12.2 Immature Gran % (Auto) 0.4 Neut % (Auto) 83.3 H Lymph % (Auto) 7.6 L Porter % (Auto) 5.8 Eos % (Auto) 2.4 Baso % (Auto) 0.5 Lymph # (Auto) 1.0 L [place] # (Auto) 0.8 Eos # (Auto) 0.3 Baso # (Auto) 0.1 Abs Immat Gran (auto) 0.05 H Absolute Neuts (auto) 10.8 H Absolute Nucleated RBC 0.000 Nucleated RBC % (auto) 0.0 VBG pH VBG pCO2 VBG pO2 VBG HCO3 VBG O2 Saturation VBG Base Excess Anion Gap 14 Estim Creat Clear Calc 34.8 Estimated GFR 41 POC Glucose Random Glucose 74 Lactic Acid 0.6 Calcium 7.5 L Total Bilirubin 0.5 AST 25 ALT 32 Alkaline Phosphatase 68 B-Natriuretic Peptide 152 H Total Protein 6.5 Albumin 3.1 L Procalcitonin 0.08 Urine Color Urine Appearance Urine pH Ur Specific [place] Urine Protein Urine Glucose (UA) Urine Ketones Urine Blood Urine Nitrite Ur Leukocyte Esterase 10/29/23 10/29/23 10/29/23 21:34 22:11 22:54 MCV MCH MCHC RDW Plt Count MPV Immature Gran % (Auto) Neut % (Auto) Lymph % (Auto) Porter % (Auto) Eos % (Auto) Baso % (Auto) Lymph # (Auto) [place] # (Auto) Eos # (Auto) Baso # (Auto) Abs Immat Gran (auto) Absolute Neuts (auto) Absolute Nucleated RBC Nucleated RBC % (auto) VBG pH 7.32 VBG pCO2 47 VBG pO2 35 VBG HCO3 25 VBG O2 Saturation 49.0 VBG Base Excess -1.3 Anion Gap Estim Creat Clear Calc Estimated GFR POC Glucose 120 H Random Glucose Lactic Acid Calcium Total Bilirubin AST ALT Alkaline Phosphatase B-Natriuretic Peptide Total Protein Albumin Procalcitonin Urine Color Yellow Urine Appearance Clear Urine pH 5.5 Ur Specific [place] 1.010 Urine Protein Negative Urine Glucose (UA) 100 H Urine Ketones Negative Urine Blood Negative Urine Nitrite Negative Ur Leukocyte Esterase Negative 10/30/23 10/30/23 10/30/23 04:56 07:21 09:34 MCV 87.2 MCH 28.2 MCHC 32.3 RDW 15.1 Plt Count 161 MPV 11.0 Immature Gran % (Auto) 0.3 Neut % (Auto) 72.2 Lymph % (Auto) 14.9 L [place] % (Auto) 7.7 Eos % (Auto) 4.5 H Baso % (Auto) 0.4 Lymph # (Auto) 1.5 Porter # (Auto) 0.8 Eos # (Auto) 0.5 H Baso # (Auto) 0.0 Abs Immat Gran (auto) 0.03 Absolute Neuts (auto) 7.2 Absolute Nucleated RBC 0.000 Nucleated RBC % (auto) 0.0 VBG pH VBG pCO2 VBG pO2 VBG HCO3 VBG O2 Saturation VBG Base Excess Anion Gap 15 Estim Creat Clear Calc 31.5 Estimated GFR 36 POC Glucose 52 L* 165 H Random Glucose 104 Lactic Acid Calcium 7.5 L Total Bilirubin AST ALT Alkaline Phosphatase B-Natriuretic Peptide Total Protein Albumin Procalcitonin Urine Color Urine Appearance Urine pH Ur Specific [place] Urine Protein Urine Glucose (UA) Urine Ketones Urine Blood Urine Nitrite Ur Leukocyte Esterase Assessment and Plan (1) CHF exacerbation: Status: Acute Plan d2 78yo M with DM2, HTN, HLD, COPD with chronic hypoxia on 3L O2, CKD3, HFpEF, CAD s/p NSTEMI on DAPT, hx ARDS recent admission 10/03-10/14/23 for multifocal pneumonia and NSTEMI admitted for worsening hypoxia due to CHF exacerbation acute on chronic hypoxemic respiratory failure with [id number] HFpEF - TTE 10/03/23 showed normal LV systolic function with EF 60-65% with mildly impaired relaxation filling pattern - continue diuresis with IV furosemide 1 more day, monitor lytes + I/O, trend BNP - back on home 3L O2 - PCT low, bilateral lower lobe infiltrates on CXR likely residual from recent PNA DM2 with hypoglycemia - A1c 7.7 - reduce glargine dose; continue lispro + Jardiance COPD with chronic hypoxic resp failure - continue maintenance inhalers + prn rescue albuterol CAD with hx NSTEMI HTN - continue DAPT, carvedilol, statin, Imdur, lisinopril, amlodipine CKD3 - SCr around baseline, monitor with diuresis chronic normocytic anemia - continue Fe suppl VTE ppx - UFH dispo - TBD, PT consult today In my clinical judgment, the patient requires continued inpatient hospitalization for the following reasons: - IV diuresis Total time managing care of this patient today: 45 minutes. Quality Stroke Does the patient have a stroke diagnosis?: No VTE Prior VTE?: No VTE Risk Level:: Medical - moderate - high VTE Device Contraindication: Treatment Not Indicated VTE Drug Contraindication: N/A - Med Ordered
--- NOTE | 2023-10-30 10:16 | MHC.CM.PN ---
CM MET WITH PT WITH A NEURO OPHTHALMOLOGIST PRESENT, HOWEVER PT WAS ABLE TO ANSWER ALL QUESTIONS WITHOUT TRANSLATION PT LIVES WITH HIS AND DAUGHTER AND HIS DAUGHTER IS HIS DAILY VENUE COORDINATOR HE IS ALSO ACTIVE WITH [facility] SINCE HIS LAST DC ON 10/14/23 HE HAS A HOSPITAL BED, O2, [place], SHOWER CHAIR, AND WHEEL CHAIR FOR DME CHP ON FILE PCP: YVONNE MARTINEZ IMM DELIVERED DCP: HOME RESUME VENUE COORDINATOR AND [facility] DAUGHTER TO TRANSPORT
--- NOTE | 2023-10-30 10:30 | PC.NURSE ---
physical therapy at bedside, physical therapy's states that just standing up pt's saturations drops down to 82% on 3l, pt did report feeling sob, ls clear and slight increase of working at that time but pt's saturation did improve with rest and oxygen increased to 4l via nasal cannual , pt denies pain, vs stable.
[2023-10-30] MEDS: Empagliflozin 10 MG TABLET PO (10:33)
[2023-10-30] MEDS: Heparin Sodium,Porcine 5,000 UNIT/ML VIAL 5000 UNIT SUBCUT ×2 (11:50→21:30)
[2023-10-30 11:58] LABS: Glucose, Whole Blood 146 mg/dL (60-115)
--- NOTE | 2023-10-30 12:52 | PC.NURSE ---
resp viral panel collection, 475 ml urine output in urinal. pt pending transport.
[2023-10-30 14:43] LABS: Adenovirus PCR Not Detected (Not Detect.); Bordetella parapertussis PCR Not Detected (Not Detect.); Bordetella pertussis PCR Not Detected (Not Detect.); Chlamydia pneumoniae PCR Not Detected (Not Detect.); Coronavirus 229E PCR Not Detected (Not Detect.); Coronavirus HKU1 PCR Not Detected (Not Detect.); Coronavirus NL63 PCR Not Detected (Not Detect.); Coronavirus OC43 PCR Not Detected (Not Detect.); Human metapneumovirus PCR Not Detected (Not Detect.); Influenza A PCR Not Detected (Not Detect.); Influenza B PCR Not Detected (Not Detect.); Mycoplasma pneumoniae PCR Not Detected (Not Detect.); Parainfluenza 1 PCR Not Detected (Not Detect.); Parainfluenza 2 PCR Not Detected (Not Detect.); Parainfluenza 3 PCR Not Detected (Not Detect.); Parainfluenza 4 PCR Not Detected (Not Detect.); RSV PCR Not Detected (Not Detect.); Rhino/Enterovirus PCR Not Detected (Not Detect.); SARS-CoV-2 PCR Not Detected (Not Detect.)
[2023-10-30] MEDS: Insulin Lispro 100 UNIT/ML 3 ML VIAL SUBCUT (16:25)
[2023-10-30 16:26] LABS: Glucose, Whole Blood 246 mg/dL (60-115)
[2023-10-30 20:29] LABS: Glucose, Whole Blood 137 mg/dL (60-115)
[2023-10-30] MEDS: Insulin Glargine,Hum.rec.anlog 100 UNIT/ML 10 ML VIAL 12 UNIT SUBCUT (21:31)
[2023-10-31 03:11] VITALS: BP 118/56; PULSE 84; RESP 19; TEMP 36.8; O2SAT 95
[2023-10-31 05:54] LABS: Venous Blood Gas Refer to POC result
[2023-10-31 05:56] LABS: VBG Base Excess 2.1 mmol/L; VBG HCO3 26 mmol/L (22-26); VBG pCO2 37 mmHg; VBG pH 7.44 (7.32-7.43); VBG pO2 56 mmHg
[2023-10-31 06:14] LABS: B Type Natriuretic Peptide 98 pg/mL (<100)
[2023-10-31 06:20] LABS: Anion Gap 15 (12-20); Blood Urea Nitrogen 71 mg/dL (9-16); Calcium 7.8 mg/dL (8.4-10.2); Carbon Dioxide 25 mmol/L (22-29); Chloride 106 mmol/L (96-108); Creatinine Clr Calc Pharmacy 32.4; Estimated Glomerular Filt Rate 38; Glucose Random 116 mg/dL (60-115); Magnesium 1.9 mg/dL (1.6-2.6); Potassium 4.7 mmol/L (3.3-5.1); Sodium 141 mmol/L (135-145)
[2023-10-31 06:36] LABS: Procalcitonin 0.13 ng/mL
[2023-10-31 07:31] VITALS: BP 147/64; PULSE 77; RESP 18; TEMP 36; O2SAT 96
[2023-10-31 07:31] LABS: Glucose, Whole Blood 98 mg/dL (60-115)
[2023-10-31] MEDS: lisinopriL 10 MG TABLET PO (08:49)
[2023-10-31] MEDS: Multivitamin TABLET 1 TAB PO (08:49)
[2023-10-31] MEDS: amLODIPine Besylate 2.5 MG TABLET PO (08:49)
[2023-10-31] MEDS: carvediloL 6.25 MG TABLET PO (08:49)
[2023-10-31] MEDS: Clopidogrel Bisulfate 75 MG TABLET PO (08:49)
[2023-10-31] MEDS: Atorvastatin Calcium 80 MG TABLET PO (08:49)
[2023-10-31] MEDS: Aspirin 81 MG TAB.CHEW PO (08:49)
[2023-10-31] MEDS: Empagliflozin 10 MG TABLET PO (08:50)
[2023-10-31] MEDS: Torsemide 20 MG TABLET 10 MG PO (08:50)
[2023-10-31] MEDS: Ferrous Sulfate 324 MG TABLET.DR PO (08:50)
[2023-10-31] MEDS: Isosorbide Mononitrate 60 MG TAB.ER.24H 120 MG PO (08:50)
[2023-10-31] MEDS: Calcium + Vitamin D 250 MG TABLET 500 MG PO (08:50)
[2023-10-31] MEDS: 0.9 % Sodium Chloride Flush 3 ML SYRINGE IVFLUSH (08:53)
[2023-10-31 11:10] LABS: Glucose, Whole Blood 274 mg/dL (60-115)
--- NOTE | 2023-10-31 11:36 | W.MHC.F2F ---
Service Date Service Date: 10/31/23 Encounter Date of encounter: 10/31/23 Reasons for Services Signs and symptoms assessed: CHF Dyspnea on Exertion,Edema, Gross Deconditioning, Impaired Bed Mobility, Impaired Gait Pattern, Impaired Safety ,Impaired Standing Balance, Impaired Transfer Ability,Muscl Reason for senior care: medication management, medication treatment and teach disease management Reason for physical therapy: home safety and mobility, therapeutic exercises, gait/transfer training, assess need for DME, ADL training and energy conservation MD Overseeing Care: Elisa Lyman Homebound: Leaving the home is medically contraindicated at this time without the asist of a device and/or another person due th the listed conditions above and below. Reason homebound: shortness of breath with minimal effort and weakness related to hospital stay Homebound supporting statement: Bed Mobility, Transfer Training,Gait Training, Therapeutic Activities, Therapeutic Exercise, Patient Education, Safety,Balance Certification: Based on the above findings, I certify that this patient is confined to the home and needs intermittent senior care care, physical therapy and/or speech therapy, or continues to need occupational therapy. The patient is under my care, and I have initiated the establishment of the plan of care. The patient will be followed by a physician who will periodically review the plan of care. Time Spent With Patient Time: Total time managing care of this patient today ____ minutes.
[2023-10-31] MEDS: Insulin Lispro 100 UNIT/ML 3 ML VIAL SUBCUT (11:41)
[2023-10-31] MEDS: Heparin Sodium,Porcine 5,000 UNIT/ML VIAL 5000 UNIT SUBCUT (11:43)
--- NOTE | 2023-10-31 11:52 | P.DS_ITS ---
DS: Providers Provider Date of Service: 10/31/23 Date of admission: 10/29/23 22:05 Date of discharge: 10/31/23 Primary care physician: Elisa Lyman MD DS: Diagnosis Discharge Diagnosis (1) Acute on chronic heart failure with preserved ejection fraction (HFpEF): Status: Acute (2) Acute and chronic respiratory failure with hypoxia: Status: Acute DS: Summary Hospital Course Hospital Course: from admission H+P by hospitalist ZACKERY Arndt, 10/29/23: 78-year-old male with history of insulin-dependent type 2 diabetes, hypertension, hyperlipidemia, COPD with chronic hypoxemic respiratory failure on 3 L supplemental O2 at baseline, CKD stage 3, heart failure with preserved ejection fraction, coronary artery disease with history of NSTEMI on DAPT, history of ARDS presented to the ED earlier today for evaluation of dyspnea on exertion and hypoxia. The patient's daughter reports he has had increased activity over the last 24 hours. Today while walking up for stairs, patient became acutely dyspneic despite wearing 4 L supplemental O2 and she reports his oxygen was noted to be around 75% and called EMS. She also reports increased bilateral lower extremity edema. He does endorse orthopnea but denies any PND. Denies any sick contacts. No fevers, chills, sore throat, congestion, abdominal pain, nausea, vomiting, diarrhea, urinary symptoms, cough, lightheadedness, palpitations, shortness of breath at rest, or chest pain. Patient was recently admitted to our facility from 10/03/2023-10/14/23 found to have multifocal pneumonia and NSTEMI. He reports he felt well following discharge. On arrival, patient noted to be tachypneic to 26, vitals otherwise stable. He was brought in by EMS on OxyMask at 5 L. Briefly was treated with CPAP due to increased work of breathing weaned back to OxyMask at 5 L now maintaining oximetry around 91-92%. He has a leukocytosis of 13.0, though this does appear to be chronic. Renal function consistent with baseline, electrolyte levels normal except for calcium of 7.5 (corrected calcium 7.8). BNP 152. Procalcitonin 0.08. Urinalysis unremarkable. Chest x-ray shows bilateral mixed interstitial and alveolar infiltrates, left greater than right which may be increased at the right lung base compared to September 2023. EKG shows sinus bradycardia, rate 59, no ST/T-wave abnormality. In the ED, has been given 80 mg IV Lasix and 3.375 g Zosyn. 78yo M with DM2, HTN, HLD, COPD with chronic hypoxia on 3L O2, CKD3, HFpEF, CAD s/p NSTEMI on DAPT, and hx ARDS who was [place] [facility] [place] for multifocal pneumonia and NSTEMI. This time, he was admitted for worsening hypoxia due to CHF exacerbation. He was admitted to the telemetry and was diuresed net -1900 mL with IV furosemide. Oxygen requirement decreased to his baseline of 3L via NC. Lung infiltrates were likely residual from recent pneumonia, given low procalcitonin and lack of fever or productive cough. He was seen by PT and STR was recommended; however, the patient declined. VNA services were arranged and the patient was discharged on a higher dose of torsemide (20 mg bid) with instructions to follow up with Cardiology in 1 week. Lantus dose was also decreased from 25 to 12 units daily due to asymptomatic hypoglycemia. Time Attestation Total time managing care of this patient today: 45 mintues. Discharge coordination time: Greater than 30 minutes Quality: Safe Use of Opioids Does Pt have an Active Cancer Diagnosis on the Problem List?: No Quality: Stroke Does the patient have a stroke diagnosis?: No Physical Exam Vital Signs: Vital Signs: Last Vital Signs Temp 96.8 F 10/31/23 07:31 Pulse 77 10/31/23 07:31 Resp 18 10/31/23 07:31 BP 147/64 H 10/31/23 07:31 Pulse Ox 96 10/31/23 07:31 O2 Del Method Nasal Cannula 10/31/23 07:31 O2 Flow Rate 4.0 10/31/23 07:31 Oxygen Flow Rate 4 10/29/23 23:32 BMI result Body Mass Index 34.9 Gen: in no acute distress HEENT: sclera anicteric, moist mucus membranes Neck: supple Lungs: diminished Heart: regular rate and rhythm, no murmurs Abd: soft, non-tender, non-distended Ext: trace bilateral lower extremity edema Skin: warm/well-perfused Neuro: alert and oriented x3, no focal findings Psych: appropriate affect DS: Data Data Completed and Pending Completed studies during hospitalization [Text1]: Laboratory Results WBC 10.0 X10*3/uL (4.8-10.8) 10/30/23 04:56 RBC 3.76 X10*6/uL (4.60-5.80) L 10/30/23 04:56 Hgb 10.6 g/dl (14.0-18.0) L 10/30/23 04:56 Hct 32.8 % (42.0-52.0) L 10/30/23 04:56 MCV 87.2 fL (80.0-98.0) 10/30/23 04:56 MCH 28.2 pg (27.0-33.0) 10/30/23 04:56 MCHC 32.3 g/dl (31.0-36.0) 10/30/23 04:56 RDW 15.1 % (11.0-16.0) 10/30/23 04:56 Plt Count 161 X10*3/uL (160-400) 10/30/23 04:56 MPV 11.0 fL (9.4-12.4) 10/30/23 04:56 Immature Gran % (Auto) 0.3 % (0.0-0.4) 10/30/23 04:56 Neut % (Auto) 72.2 % (45-73) 10/30/23 04:56 Lymph % (Auto) 14.9 % (20-40) L 10/30/23 04:56 [place] % (Auto) 7.7 % (2-11) 10/30/23 04:56 Eos % (Auto) 4.5 % (0-4) H 10/30/23 04:56 Baso % (Auto) 0.4 % (0-2) 10/30/23 04:56 Lymph # (Auto) 1.5 X10*3/uL (1.2-4.9) 10/30/23 04:56 [place] # (Auto) 0.8 X10*3/uL (0.1-1.2) 10/30/23 04:56 Eos # (Auto) 0.5 X10*3/uL (0.0-0.4) H 10/30/23 04:56 Baso # (Auto) 0.0 X10*3/uL (0.0-0.2) 10/30/23 04:56 Abs Immat Gran (auto) 0.03 X10*3/uL (0.00-0.03) 10/30/23 04:56 Absolute Neuts (auto) 7.2 x10*3/uL (2.0-8.3) 10/30/23 04:56 Absolute Nucleated RBC 0.000 X10*3/uL (0.0-0.012) 10/30/23 04:56 Nucleated RBC % (auto) 0.0 /100WBC (0.0-0.2) 10/30/23 04:56 VBG pH 7.44 (7.32-7.43) H 10/31/23 05:50 VBG pCO2 37 mmHg 10/31/23 05:50 VBG pO2 56 mmHg 10/31/23 05:50 VBG HCO3 26 mmol/L (22-26) 10/31/23 05:50 VBG O2 Saturation 86.0 % 10/31/23 05:50 VBG Base Excess 2.1 mmol/L 10/31/23 05:50 Sodium 141 mmol/L (135-145) 10/31/23 05:45 Potassium 4.7 mmol/L (3.3-5.1) 10/31/23 05:45 Chloride 106 mmol/L (96-108) 10/31/23 05:45 Carbon Dioxide 25 mmol/L (22-29) 10/31/23 05:45 Anion Gap 15 (12-20) 10/31/23 05:45 BUN 71 mg/dL (9-16) H 10/31/23 05:45 Creatinine 1.76 mg/dL (0.5-1.4) H 10/31/23 05:45 Estim Creat Clear Calc 32.4 10/31/23 05:45 Estimated GFR 38 10/31/23 05:45 POC Glucose 274 mg/dL (60-115) H 10/31/23 11:05 Random Glucose 116 mg/dL (60-115) H 10/31/23 05:45 Lactic Acid 0.6 mmol/L (0.5-2.0) 10/29/23 21:25 Calcium 7.8 mg/dL (8.4-10.2) L 10/31/23 05:45 Magnesium 1.9 mg/dL (1.6-2.6) 10/31/23 05:45 Total Bilirubin 0.5 mg/dL (0.0-1.0) 10/29/23 19:49 AST 25 U/L (5-37) 10/29/23 19:49 ALT 32 U/L (0-40) 10/29/23 19:49 Alkaline Phosphatase 68 U/L (39-117) 10/29/23 19:49 B-Natriuretic Peptide 98 pg/mL (<100) 10/31/23 05:45 Total Protein 6.5 g/dL (6.5-8.0) 10/29/23 19:49 Albumin 3.1 g/dL (3.5-5.0) L 10/29/23 19:49 Procalcitonin 0.13 ng/mL 10/31/23 05:45 Urine Color Yellow 10/29/23 22:11 Urine Appearance Clear 10/29/23 22:11 Urine pH 5.5 (5.0-9.0) 10/29/23 22:11 Ur Specific [place] 1.010 (1.005-1.025) 10/29/23 22:11 Urine Protein Negative mg/dL (Neg-Trace) 10/29/23 22:11 Urine Glucose (UA) 100 mg/dL (Negative) H 10/29/23 22:11 Urine Ketones Negative mg/dL (Negative) 10/29/23 22:11 Urine Blood Negative (Negative) 10/29/23 22:11 Urine Nitrite Negative (Negative) 10/29/23 22:11 Ur Leukocyte Esterase Negative (Negative) 10/29/23 22:11 Respiratory Panel Garcia See Note 10/30/23 12:44 Adenovirus (Rapid PCR) Not Detected (Not Detect.) 10/30/23 12:44 B.pert (TEM-PCR) Not Detected (Not Detect.) 10/30/23 12:44 B.parapertussis DNA PCR Not Detected (Not Detect.) 10/30/23 12:44 C. pneumoniae DNA (PCR) Not Detected (Not Detect.) 10/30/23 12:44 Coronavirus OC43 (PCR) Not Detected (Not Detect.) 10/30/23 12:44 Coronavirus HKU1 (PCR) Not Detected (Not Detect.) 10/30/23 12:44 Coronavirus 229E (PCR) Not Detected (Not Detect.) 10/30/23 12:44 Coronavirus NL63 (PCR) Not Detected (Not Detect.) 10/30/23 12:44 Human Metapneumovir PCR Not Detected (Not Detect.) 10/30/23 12:44 Influenza A (RT-PCR) Not Detected (Not Detect.) 10/30/23 12:44 Influenza B (RT-PCR) Not Detected (Not Detect.) 10/30/23 12:44 M. pneumoniae (PCR) Not Detected (Not Detect.) 10/30/23 12:44 Parainfluenza 1 (PCR) Not Detected (Not Detect.) 10/30/23 12:44 Parainfluenza 2 (PCR) Not Detected (Not Detect.) 10/30/23 12:44 Parainfluenza 3 (PCR) Not Detected (Not Detect.) 10/30/23 12:44 Parainfluenza 4 (PCR) Not Detected (Not Detect.) 10/30/23 12:44 RSV (PCR) Not Detected (Not Detect.) 10/30/23 12:44 Entero/Rhino (PCR) Not Detected (Not Detect.) 10/30/23 12:44 SARS-CoV-2 RNA (RT-PCR) Not Detected (Not Detect.) 10/30/23 12:44 Impressions Chest X-Ray 10/29/23 18:30 IMPRESSION: Stable enlargement of the cardiac silhouette. Bilateral mixed interstitial and alveolar infiltrates, left greater than right. This may be increased at the right lung base compared to September 2023 exams. Discharge Plan Discharge Anticipated Discharge Date/Time: 10/31/23 11:42 Patient Disposition: Home Health Service Discharge Diagnosis: hypoxia due to CHF exacerbation diabetes with hypoglycemia Referrals: Rafi Power MD [Physician] - 1 Week Elisa Lyman MD [Primary Care Provider] - 1 Week Discharge Medications: New torsemide 20 mg tablet 20 mg PO BID@0800,1500 Qty: 60 0RF insulin glargine [Lantus Solostar U-100 Insulin] 100 unit/mL (3 mL) insulin pen 12 unit subcut QPM Qty: 15 0RF Continued atorvastatin 80 mg tablet 80 mg PO DAILY carvedilol 6.25 mg tablet 6.25 mg PO BID clopidogrel 75 mg tablet 75 mg PO DAILY ferrous sulfate 325 mg (65 mg iron) tablet 325 mg PO DAILY aspirin 81 mg tablet,chewable 1 tab PO DAILY lisinopril 10 mg tablet 10 mg PO DAILY isosorbide mononitrate 60 mg tablet extended release 24 hr 120 mg PO DAILY Incruse Ellipta 62.5 mcg/actuation blister with device 1 inh inhalation DAILY Jardiance 10 mg tablet 10 mg PO DAILY insulin aspart U-100 [Novolog FlexPen U-100 Insulin] 100 unit/mL (3 mL) insulin pen See Protocol subcut DIRECTED Protocol: Insulin Correction Scale Less than or equal to 110 ---- Give (units): 0 111 to 150 Give (units): 0 151 to 200 Give (units): 2 201 to 250 Give (units): 4 251 to 300 Give (units): 6 301 to 350 Give (units): 8 Greater than 350 Give (units): 10 Call MD if Blood Glucose > : 350 amlodipine 2.5 mg Tablet 2.5 mg PO DAILY Qty: 30 0RF Protocol: Hold for SBP< HOLD for SBP < : 90 ipratropium-albuterol 0.5 mg-3 mg(2.5 mg base)/3 mL Solution For Nebulization 3 ml INHALATION Q6H PRN (Reason: Shortness Of Breath) nitroglycerin 0.4 mg Tablet, Sublingual 0.4 mg SUBLINGUAL Q5M PRN (Reason: Chest Pain) Rx Instructions: do not exceed 3 doses per episode nystatin 100,000 unit/gram Powder 1 appl TOPICAL BID PRN (Reason: Rash) PreserVision AREDS-2 250-90-40-1 mg capsule 1 cap PO BID Discontinued torsemide 10 mg Tablet 10 mg PO BID insulin glargine [Lantus Solostar U-100 Insulin] 100 unit/mL (3 mL) insulin pen 25 unit subcut BEDTIME Discharge Orders: Discharge Order (Routine); Ordered 10/31/23 Ordered By: Loree Kwong Diet: Low salt diet Activity on Discharge: As tolerated Stand Alone Forms: Patient Portal Discharge page Care Plan Goals: avoid CHF exacerbations avoid hypoglycemia Health Concerns: hypoxia due to CHF exacerbation - continue home oxygen 3L - increase torsemide to 20 mg twice daily - Low-sodium diet: less than 2000 mg of sodium daily. Weigh yourself daily and call your doctor if your weight goes up by more than 3 lb/day or 5 lb/week. - [place] [facility] [place] diabetes with hypoglycemia - reduce Lantus to 12 units daily Please follow up with your primary care doctor within 1 week. Return to the hospital if you experience recurrent or worsening symptoms. Plan of Treatment: see above Assessment: Please follow up with your primary care doctor within 1 week. Return to the hospital if you experience recurrent or worsening symptoms.
--- NOTE | 2023-10-31 12:43 | MHC.CM.PN ---
PT TO DC HOME TODAY WITH [facility] FAMILY TO TRANSPORT
== END 2023-10-31 12:57 | disposition home health service (06) | DRG 291 ==
LOC: HO.ED 20:50 → HO.EDOVER 22:26 → HO.S3 10-30 11:21
PROVIDERS: Internal Medicine; Admitting Provider Physician Assistant; Emergency Provider Student in an Organized Health Care Education/Training Program; PCP Internal Medicine; Visit Provider Family Medicine
DX: I13.0 Hypertensive heart and chronic kidney disease with heart failure and stage 1 through stage 4 chronic kidney disease, or unspecified chronic kidney disease (principal); I50.33 Acute on chronic diastolic (congestive) heart failure; J96.21 Acute and chronic respiratory failure with hypoxia; N18.30 Chronic kidney disease, stage 3 unspecified; E11.22 Type 2 diabetes mellitus with diabetic chronic kidney disease; I25.2 Old myocardial infarction; I25.10 Atherosclerotic heart disease of native coronary artery without angina pectoris; D63.1 Anemia in chronic kidney disease; E11.649 Type 2 diabetes mellitus with hypoglycemia without coma; Z95.1 Presence of aortocoronary bypass graft; Z20.822 Contact with and (suspected) exposure to COVID-19; Z87.891 Personal history of nicotine dependence; Z99.81 Dependence on supplemental oxygen; Z79.4 Long term (current) use of insulin; Z79.02 Long term (current) use of antithrombotics/antiplatelets; Z79.84 Long term (current) use of oral hypoglycemic drugs; Z79.899 Other long term (current) drug therapy
CPT/HCPCS: 36415; 71045; 80048; 80053; 81003; 82803; 82947; 83605; 83735; 83880; 84145; 85025; 87040; 87633; 93005; 97162; 99285; J1644; J1940; J2543

== ENCOUNTER → 2023-10-29 17:45 | Outpatient (BNV) | payer OTHER, SELFPAY | PROVIDERS: Admitting Provider Physician Assistant; Emergency Provider Student in an Organized Health Care Education/Training Program; PCP Internal Medicine Infectious Disease; Visit Provider Internal Medicine | DX: R00.1 Bradycardia, unspecified (principal) | CPT/HCPCS: 93010 ==

== ENCOUNTER → 2023-10-29 22:05 | Outpatient (BNV) | payer OTHER, SELFPAY | PROVIDERS: Admitting Provider Physician Assistant; Emergency Provider Student in an Organized Health Care Education/Training Program; PCP Internal Medicine Infectious Disease; Visit Provider Family Medicine | DX: I50.9 Heart failure, unspecified (principal) | CPT/HCPCS: 99223; 99232 ==

== ENCOUNTER 2023-10-31 14:41 | Inpatient (IN) | payer OTHER, SELFPAY ==
--- NOTE | 2023-10-31 | ECG_ITS ---
Test Reason : hypotension Blood Pressure : / mmHG Vent. Rate : 067 BPM Atrial Rate : 067 BPM P-R Int : 178 ms QRS Dur : 080 ms QT Int : 392 ms P-R-T Axes : 027 022 083 degrees QTc Int : 414 ms Normal sinus rhythm Nonspecific ST and T wave abnormality lateral leads When compared with ECG of 29-OCT-2023 18:14, No significant change was found Referred By: Loree Kwong Electronically Signed By:MCKINLEY WARD
--- NOTE | ~2023-10-31 | NM_ITS ---
EXAMINATION: PULMONARY PERFUSION STUDY CLINICAL INFORMATION: CHF, COPD, chronic respiratory failure with hypoxia, CTA KD, rule out pulmonary embolism. COMPARISON: The previous lung perfusion scan dated 10/09/2023 is available for comparison. A radiograph of the chest dated 10/31/2023 is available for comparison. TECHNIQUE: Following the intravenous administration of 4.0 mCi Tc-99m MAA an 8-view perfusion study was performed using a dual detector gamma scintillation camera. No ventilation images were obtained. FINDINGS: Perfusion images: There is diffusely decreased activity in the right lung which is most severe in the mid and upper lung hernandez but does not have a focal or segmental pattern. In the left lung there is a perfusion defect which is probably segmental involving the superior lingular segment. Some heterogeneity in the remainder of the left lung is present, predominantly a mild diffuse decrease in activity in the left upper lobe. Compared to the previous lung scan dated 10/09/2023 the pattern is very similar. The contemporaneous chest radiograph shows a left upper lobe infiltrate that appears well matched to the perfusion abnormality described above at this site. NM/NM pul perfusion IMPRESSION: Low probability of pulmonary embolism. Stable abnormalities are present, most prominently in the left upper lobe, and these appear well matched to the infiltrate on the contemporaneous chest radiograph.
--- NOTE | ~2023-10-31 | CT_ITS ---
EXAMINATION: CT head/brain wo IV con CLINICAL INFORMATION: Reason for Exam AMS? Seizure COMPARISON: None. TECHNIQUE: Contiguous axial imaging was performed from the skull base to vertex without intravenous contrast. Sagittal and coronal reformatted images were obtained. This CT examination was performed using dose optimization techniques as appropriate, variously including the following: * Automated exposure control * Adjustment of mA and/or kV according to patient size (this includes techniques or standardized protocols for targeted exams where dose is matched to indication/reason for exam; i.e. extremities or head) Use of iterative reconstruction technique DLP: 647 mGy-cm FINDINGS: To moderate generalized parenchymal volume loss. Patchy periventricular and deep white matter hypoattenuation is nonspecific but likely reflects sequelae of mild chronic microangiopathy. No territorial loss of lemons-white differentiation. Calcific plaque along the bilateral carotid siphons. Empty sella. No acute intracranial hemorrhage or extra-axial fluid collection. No mass lesion, significant mass effect, or herniation pattern. The orbits are grossly normal. Trace air-fluid levels in the sphenoid sinuses with some aerated secretions on the right. Underpneumatized sclerotic mastoid air cells bilaterally compatible with sequela of chronic mastoiditis with several opacified bilateral mastoid air cells. Osseous structures are intact. Left greater than right TMJ osteoarthrosis. CT/CT head/brain wo IV con IMPRESSION: 1. No acute intracranial abnormality. Specifically, no CT evidence of acute intracranial hemorrhage, significant mass effect, hydrocephalus, or large territorial infarction. Mild to moderate global cerebral volume loss and mild chronic microangiopathy. 2. Empty sella.
--- NOTE | ~2023-10-31 | XR_ITS ---
EXAMINATION: XR CHEST CLINICAL INFORMATION: New O2 requirement. COMPARISON: Chest 10/29/2023. TECHNIQUE: Frontal view of the chest was obtained. FINDINGS: There is patchy infiltrate left upper lobe and increase interstitial markings in both lower lobes, similar to previous study. The heart size is enlarged. Pulmonary vascularity is within normal limits. There is MEMs device overlying the right hilum. No gross bony abnormality. XR/XR chest 1V IMPRESSION: No change in left upper lobe infiltrate and prominent increase interstitial markings in bilateral lower lobes. No new infiltrates or worsening seen.
[2023-10-31 14:48] VITALS: BP 105/43; BP 89/60; PULSE 69; PULSE 90; RESP 20; TEMP 36.8; O2SAT 90; O2SAT 94; BMI 31.6
--- NOTE | 2023-10-31 14:55 | ED.GENADULT ---
HPI - General Adult General Chief complaint: General Medical Stated complaint: UNRESPONSIVE, INCONT. LOW BP Time Seen by Provider: 10/31/23 14:55 Source: patient Mode of arrival: EMS Limitations: no limitations History of Present Illness HPI narrative: Patient is 78 years old diabetic with history of hypertension hyperlipidemia COPD chronic hypoxemic respiratory failure on 3 L of oxygen CKD stage 3 heart failure with preserved ejection fraction coronary disease status post STEMI history of ARDS was admitted for worsening of acute on chronic HFpEF and discharged at 11:00 today. At the time of discharge patient was feeling much better when he reached home was feeling okay was in his bed tried to get up to go to bathroom when his reached to his room found him in his bed not responsive with eyes open incontinence no seizure activity noticed pulse ox 93 on 3 L blood pressure 60/30 with feeble pulses incontinent with shallow breathing POC was 130 saturating low 80s on oxygen Related Data Home Medications Medication Instructions Recorded Confirmed aspirin 81 mg chewable tablet 1 tab PO DAILY 10/03/23 10/31/23 atorvastatin 80 mg tablet 80 mg PO DAILY 10/03/23 10/31/23 carvedilol 6.25 mg tablet 6.25 mg PO BID 10/03/23 10/31/23 clopidogrel 75 mg tablet 75 mg PO DAILY 10/03/23 10/31/23 empagliflozin 10 mg tablet 10 mg PO DAILY 10/03/23 10/31/23 (Jardiance) ferrous sulfate 325 mg (65 mg 325 mg PO DAILY 10/03/23 10/31/23 iron) tablet insulin aspart U-100 100 unit/mL See Protocol subcut DIRECTED 10/03/23 10/31/23 (3 mL) subcutaneous pen (Novolog FlexPen U-100 Insulin aspart) isosorbide mononitrate 60 mg 120 mg PO DAILY 10/03/23 10/31/23 tablet,extended release 24 hr lisinopril 10 mg tablet 10 mg PO DAILY 10/03/23 10/31/23 umeclidinium 62.5 mcg/actuation 1 inh inhalation DAILY 10/03/23 10/31/23 blister powder for inhalation (Incruse Ellipta) ipratropium 0.5 mg-albuterol 3 mg 3 ml inhalation Q6H PRN Shortness 10/29/23 10/31/23 (2.5 mg base)/3 mL nebulization Of Breath soln nitroglycerin 0.4 mg sublingual 0.4 mg sublingual Q5M PRN Chest 10/29/23 10/31/23 tablet Pain nystatin 100,000 unit/gram topical 1 appl topical BID PRN Rash 10/29/23 10/31/23 powder vit C 250 mg-vit E 90 mg-zinc 40 1 cap PO BID 10/29/23 10/31/23 mg-copper 1 [id number] capsule (PreserVision AREDS-2) Previous Rx's Medication Instructions Recorded amlodipine 2.5 mg tablet 2.5 mg PO DAILY #30 tabs 10/14/23 insulin glargine 100 unit/mL (3 12 unit (0.12 mL) subcut QPM #15 mL 10/31/23 mL) subcutaneous pen (Lantus Solostar U-100 Insulin) torsemide 20 mg tablet 20 mg PO BID@0800,1500 #60 tabs 10/31/23 Allergies Allergy/AdvReac Type Severity Reaction Status Date / Time No Known Allergies Allergy Verified 10/31/23 14:53 [facility] Past Medical History Medical History Acute non-ST elevation myocardial infarction (NSTEMI) Adult respiratory distress syndrome Hyperlipidemia Hypertension Diabetes mellitus, type 2 Chronic respiratory failure with hypoxia COPD (chronic obstructive pulmonary disease) CKD (chronic kidney disease) CHF (congestive heart failure) Coronary artery disease Surgical History S/P coronary artery stent placement Family History Family History Other Cancer Social History Social History Household Members: Spouse and Children Housing: House Do you presently have visiting nurse or other home services: No Alcohol intake: never Patient Tobacco Use Status: Former Tobacco user Smoked in Last 30 Days: No Second Hand Smoke Exposure: No Use of substances other than those prescribed or required for medical reasons: No Advance Directives: No Advance Directives Information Provided: No service: No Physical Exam ED Vital Signs: Vital Signs - 24 hr 10/31/23 14:48 Temperature 98.2 F Pulse Rate 69 Respiratory Rate 20 Blood Pressure 105/43 L Pulse Oximetry 94 Oxygen Delivery Method Non-Rebreather Mask BMI result Body Mass Index 31.6 Appearance: Alert. Oriented X3. No acute distress. Eyes: No pallor or icterus ENT: Pharynx normal. Oral Mucosa moist atraumatic normocephalic Neck: Normal inspection. Neck supple. No midline tenderness CVS: Normal heart rate and rhythm. Pulses normal. Respiratory: No respiratory distress. Equal air entry bilateral, decreased air entry bilateral with few rales at the bases Abdomen: Soft and nontender. Bowel sounds are present, no mass palpable, no CVA tenderness Skin: Skin warm and dry. Normal skin color. Normal skin turgor. Extremities: No lower extremity edema. No calf tenderness Neuro: Oriented X 3. No motor deficit. No sensory deficit.No cerebellar signs , cranial nerves II-XII intact Medications Administered Generic Name Dose Route Start Last Admin Trade Name Freq PRN Reason Stop Dose Admin Heparin Sodium (Porcine) 5,000 unit 10/31/23 20:00 10/31/23 19:51 Heparin Sodium,Porcine 5,000 Unit/Ml Vial SUBCUT 5,000 unit Q12H ANDREW Administration Discontinued Medications Generic Name Dose Route Start Last Admin Trade Name Freq PRN Reason Stop Dose Admin Sodium Zirconium Cyclosilicate 5 gm 10/31/23 19:03 10/31/23 19:51 Sodium Zirconium Cyclosilicate 5 Gm Powd.Pack PO 10/31/23 19:04 5 gm ONCE ONE Administration Medical Decision Making Medical Decision Making [facility] Narrative: Patient with multiple comorbid condition with chronic hypoxemia on oxygen came for syncope episode etiology not very clear no signs of injury patient just discharged 2 hours prior to arrival with readmit patient head CT is negative labs are stable Differential Diagnosis Differential Diagnoses: The differential diagnosis associated with the presentation includes Admission/Observation Consideration of admission/observation: Escalation of care including admission/observation considered Consult Healthcare Provider Management of the patient was discussed with: Hospitalist Lab Data [facility] Lab Attestation statement: I reviewed the patient's lab results. 10/31/23 17:09 10/31/23 17:08 Labs: Lab Results 10/31/23 10/31/23 Range/Units 17:08 17:09 WBC 12.0 H (4.8-10.8) X10*3/uL RBC 3.47 L (4.60-5.80) X10*6/uL Hgb 9.8 L (14.0-18.0) g/dl Hct 31.3 L (42.0-52.0) % MCV 90.2 (80.0-98.0) fL MCH 28.2 (27.0-33.0) pg MCHC 31.3 (31.0-36.0) g/dl RDW 15.2 (11.0-16.0) % Plt Count 172 (160-400) X10*3/uL MPV 11.2 (9.4-12.4) fL Immature Gran % (Auto) 0.3 (0.0-0.4) % Neut % (Auto) 75.0 H (45-73) % Lymph % (Auto) 12.0 L (20-40) % [place] % (Auto) 7.7 (2-11) % Eos % (Auto) 4.6 H (0-4) % Baso % (Auto) 0.4 (0-2) % Lymph # (Auto) 1.4 (1.2-4.9) X10*3/uL [place] # (Auto) 0.9 (0.1-1.2) X10*3/uL Eos # (Auto) 0.6 H (0.0-0.4) X10*3/uL Baso # (Auto) 0.1 (0.0-0.2) X10*3/uL Abs Immat Gran (auto) 0.04 H (0.00-0.03) X10*3/uL Absolute Neuts (auto) 9.0 H (2.0-8.3) x10*3/uL Absolute Nucleated RBC 0.000 (0.0-0.012) X10*3/uL Nucleated RBC % (auto) 0.0 (0.0-0.2) /100WBC Sodium 140 (135-145) mmol/L Potassium 5.3 H (3.3-5.1) mmol/L Chloride 105 (96-108) mmol/L Carbon Dioxide 28 (22-29) mmol/L Anion Gap 12 (12-20) BUN 69 H (9-16) mg/dL Creatinine 1.89 H (0.5-1.4) mg/dL Estim Creat Clear Calc 31.9 Estimated GFR 35 Random Glucose 78 (60-115) mg/dL Lactic Acid 0.8 (0.5-2.0) mmol/L Calcium 8.0 L (8.4-10.2) mg/dL Total Bilirubin 0.5 (0.0-1.0) mg/dL Direct Bilirubin 0.3 (0.0-0.5) mg/dL AST 17 (5-37) U/L ALT 24 (0-40) U/L Alkaline Phosphatase 60 (39-117) U/L Ammonia 28 (13-55) umol/L Troponin I High Sens 10.9 D (<3.5-35.0) ng/L C-Reactive Protein 2.11 H (< or = 0.50) mg/dL B-Natriuretic Peptide 93 (<100) pg/mL Total Protein 5.9 L (6.5-8.0) g/dL Albumin 3.0 L (3.5-5.0) g/dL Procalcitonin 0.12 ng/mL Independent Interpretation I performed an independent interpretation of an: EKG and CT Scan Interpretation: Normal sinus rhythm heart rate 67 beats per minute normal interval normal axis no acute ST T wave changes no acute ischemia impression normal EKG Radiology Impression Discussion of test interpretation with radiology: I have reviewed the radiologist's reading. Discharge Plan Discharge Clinical Impression: Syncope and collapse, Acute on chronic heart failure with preserved ejection fraction (HFpEF), Acute and chronic respiratory failure with hypoxia Patient Disposition: Admitted As Inpatient
--- NOTE | 2023-10-31 15:05 | PC.NURSE ---
Pt brought in by EMS, found unresponsive at home by family. Pt was laying in bed, with eyes rolling into the back of his head, no verbally responging to family, EMS sternal rubbing with nor response. Pt did not have a radial pulse for EMS, BP 60/30. IV placed, 200cc given, [id number] systolic at this time. Pt placed on non-rebreather d/t increased O2 needs (baseline O2 need 3L) Pt is A/Ox4 responding to questions being asked by staff. Orders placed, EKG done, provider at bedside at this time
[2023-10-31 17:10] LABS: MANUAL DIFF FLAG NO
[2023-10-31 17:11] LABS: Basophils Absolute Auto 0.1 X10*3/uL (0.0-0.2); Basophils Percent Auto 0.4 % (0-2); Eosinophils Absolute Auto 0.6 X10*3/uL (0.0-0.4); Eosinophils Percent Auto 4.6 % (0-4); Hematocrit 31.3 % (42.0-52.0); Hemoglobin 9.8 g/dl (14.0-18.0); Imm Gran Abs Auto 0.04 X10*3/uL (0.00-0.03); Imm Gran Pct Auto 0.3 % (0.0-0.4); Lymphocytes Absolute Auto 1.4 X10*3/uL (1.2-4.9); Mean Corpuscular HGB Conc 31.3 g/dl (31.0-36.0); Mean Corpuscular Hemoglobin 28.2 pg (27.0-33.0); Mean Corpuscular Volume 90.2 fL (80.0-98.0); Mean Platelet Volume 11.2 fL (9.4-12.4); Monocytes Absolute Auto 0.9 X10*3/uL (0.1-1.2); Monocytes Percent Auto 7.7 % (2-11); Platelet Count 172 X10*3/uL (160-400); Red Blood Count 3.47 X10*6/uL (4.60-5.80); Red Cell Distribution Width 15.2 % (11.0-16.0)
[2023-10-31 17:22] LABS: Lactic Acid 0.8 mmol/L (0.5-2.0)
[2023-10-31 17:27] LABS: Alanine Aminotransferase 24 U/L (0-40); Alkaline Phosphatase 60 U/L (39-117); Anion Gap 12 (12-20); Aspartate Amino Transferase 17 U/L (5-37); Bilirubin Direct 0.3 mg/dL (0.0-0.5); Bilirubin Total 0.5 mg/dL (0.0-1.0); Blood Urea Nitrogen 69 mg/dL (9-16); Carbon Dioxide 28 mmol/L (22-29); Chloride 105 mmol/L (96-108); Creatinine Clr Calc Pharmacy 31.9; Estimated Glomerular Filt Rate 35; Glucose Random 78 mg/dL (60-115); Potassium 5.3 mmol/L (3.3-5.1); Sodium 140 mmol/L (135-145); Total Protein 5.9 g/dL (6.5-8.0)
[2023-10-31 17:33] LABS: B Type Natriuretic Peptide 93 pg/mL (<100); Troponin-I High Sensitivity 10.9 ng/L (<3.5-35.0)
[2023-10-31 17:43] LABS: Ammonia 28 umol/L (13-55)
--- NOTE | 2023-10-31 17:51 | PHA.MEDREC ---
Pharmacy Consult ? Medication Reconciliation Pharmacy has completed the medication reconciliation. Patient just discharge earlier from today. Utilized discharge summary for med rec. Ace MaeD
--- NOTE | 2023-10-31 18:57 | P.HPHOSP_ITS ---
History of Present Illness Date of Service: 10/31/23 Chief Complaint: unresponsive and hypotensive 78yo who I just discharged from here this morning. From my discharge summary: 78yo M with DM2, HTN, HLD, COPD with chronic hypoxia on 3L O2, CKD3, HFpEF, CAD s/p NSTEMI on DAPT, and hx ARDS who was recently admitted to [facility] [place]23 for multifocal pneumonia and NSTEMI. This time, he was admitted for worsening hypoxia due to CHF exacerbation. He was admitted to the telemetry and was diuresed net -1900 mL with IV furosemide. Oxygen requirement decreased to his baseline of 3L via NC. Lung infiltrates were likely residual from recent pneumonia, given low procalcitonin and lack of fever or productive cough. He was seen by PT and STR was recommended; however, the patient declined. VNA services were arranged and the patient was discharged on a higher dose of torsemide (20 mg bid) with instructions to follow up with Cardiology in 1 week. Lantus dose was also decreased from 25 to 12 units daily due to asymptomatic hypoglycemia. He was home for 2 hours and last remembers being in his bed and trying to get up to go to the bathroom. His found him in his bed unresponsive. He was incontinent of urine. No seizure-like activity. EMS found him hypotensive with BP 60/30, non-palpable radial pulse. He was breathing shallowly. POC BG was 130. He was saturating in the low 80s on oxygen. By the time he arrived in the ED, BP was 105/43 and he was awake and alert . He is fully oriented and answering all questions appropriately. He felt fine this morning and fine upon arriving at home. He denies dizziness or lightheadedness. He denies taking of his medications upon arrival home since he had received them in the hospital. Labs notable only for K 5.3, SCr 1.89 (1.76 this am). LA 0.8. Hb 9.8, was 10.6 yesterday. Review of Systems 2 Review of Systems: Yes all other systems are reviewed and are negative [facility] Medical History Acute non-ST elevation myocardial infarction (NSTEMI) Adult respiratory distress syndrome Hyperlipidemia Hypertension Diabetes mellitus, type 2 Chronic respiratory failure with hypoxia COPD (chronic obstructive pulmonary disease) CKD (chronic kidney disease) CHF (congestive heart failure) Coronary artery disease Family History Other Cancer Surgical History S/P coronary artery stent placement Social History Household Members: Spouse and Children Housing: House Do you presently have visiting nurse or other home services: No Alcohol intake: never Patient Tobacco Use Status: Former Tobacco user Smoked in Last 30 Days: No Second Hand Smoke Exposure: No Use of substances other than those prescribed or required for medical reasons: No Advance Directives: No Advance Directives Information Provided: No service: No Meds Allergies Allergy/AdvReac Type Severity Reaction Status Date / Time No Known Allergies Allergy Verified 10/31/23 14:53 Home Medications Medication Instructions Recorded Confirmed Last Taken Type aspirin 81 mg chewable tablet 1 tab PO DAILY 10/03/23 10/31/23 10/29/23 History atorvastatin 80 mg tablet 80 mg PO DAILY 10/03/23 10/31/23 10/29/23 History carvedilol 6.25 mg tablet 6.25 mg PO BID 10/03/23 10/31/23 10/29/23 History clopidogrel 75 mg tablet 75 mg PO DAILY 10/03/23 10/31/23 10/29/23 History empagliflozin 10 mg tablet 10 mg PO DAILY 10/03/23 10/31/23 10/29/23 History (Jardiance) ferrous sulfate 325 mg (65 mg 325 mg PO DAILY 10/03/23 10/31/23 10/29/23 History iron) tablet insulin aspart U-100 100 unit/mL See Protocol subcut DIRECTED 10/03/23 10/31/23 10/29/23 History (3 mL) subcutaneous pen (Novolog FlexPen U-100 Insulin aspart) isosorbide mononitrate 60 mg 120 mg PO DAILY 10/03/23 10/31/23 10/29/23 History tablet,extended release 24 hr lisinopril 10 mg tablet 10 mg PO DAILY 10/03/23 10/31/23 10/29/23 History umeclidinium 62.5 mcg/actuation 1 inh inhalation DAILY 10/03/23 10/31/23 10/29/23 History blister powder for inhalation (Incruse Ellipta) ipratropium 0.5 mg-albuterol 3 mg 3 ml inhalation Q6H PRN Shortness 10/29/23 10/31/23 Unknown History (2.5 mg base)/3 mL nebulization Of Breath soln nitroglycerin 0.4 mg sublingual 0.4 mg sublingual Q5M PRN Chest 10/29/23 10/31/23 Unknown History tablet Pain nystatin 100,000 unit/gram topical 1 appl topical BID PRN Rash 10/29/23 10/31/23 Unknown History powder vit C 250 mg-vit E 90 mg-zinc 40 1 cap PO BID 10/29/23 10/31/23 10/29/23 History mg-copper 1 [id number] capsule (PreserVision AREDS-2) Physical Exam 2 Vital Signs and Narrative: Vital Signs: Last Vital Signs Temp 98.2 F 10/31/23 14:48 Pulse 69 10/31/23 14:48 Resp 20 10/31/23 14:48 BP 105/43 L 10/31/23 14:48 Pulse Ox 94 10/31/23 14:48 O2 Del Method Non-Rebreather Ma 10/31/23 14:48 Oxygen Flow Rate 10 10/31/23 14:48 BMI result Body Mass Index 31.6 Gen: in no acute distress, 94% on 10L NRB HEENT: sclera anicteric, moist mucus membranes Neck: supple Lungs: clear to auscultation bilaterally Heart: regular rate and rhythm, no murmurs Abd: soft, non-tender, non-distended Ext: trace LE edema Skin: warm/well-perfused Neuro: alert and oriented x3, no focal findings Psych: appropriate affect Results Labs 10/31/23 17:09 10/31/23 17:08 Labs: Laboratory Results - last 24 hr 10/31/23 10/31/23 17:08 17:09 MCV 90.2 MCH 28.2 MCHC 31.3 RDW 15.2 Plt Count 172 MPV 11.2 Immature Gran % (Auto) 0.3 Neut % (Auto) 75.0 H Lymph % (Auto) 12.0 L [place] % (Auto) 7.7 Eos % (Auto) 4.6 H Baso % (Auto) 0.4 Lymph # (Auto) 1.4 [place] # (Auto) 0.9 Eos # (Auto) 0.6 H Baso # (Auto) 0.1 Abs Immat Gran (auto) 0.04 H Absolute Neuts (auto) 9.0 H Absolute Nucleated RBC 0.000 Nucleated RBC % (auto) 0.0 Anion Gap 12 Estim Creat Clear Calc 31.9 Estimated GFR 35 Random Glucose 78 Lactic Acid 0.8 Calcium 8.0 L Total Bilirubin 0.5 Direct Bilirubin 0.3 AST 17 ALT 24 Alkaline Phosphatase 60 Ammonia 28 B-Natriuretic Peptide 93 Total Protein 5.9 L Albumin 3.0 L Imaging Radiologist's Impressions: Impressions Chest X-Ray 10/31/23 15:05 IMPRESSION: No change in left upper lobe infiltrate and prominent increase interstitial markings in bilateral lower lobes. No new infiltrates or worsening seen. Assessment and Plan (1) Syncope and collapse: Status: Acute Plan 78yo M with DM2, HTN, HLD, COPD/chronic hypoxia on 3L O2, CKD3, HFpEF, CAD s/p recent NSTEMI on DAPT, hx ARDS Recent admissions here 10/03-10/14/23 for pneumonia + STEMI, 10/29-10/31/23 for CHF exacerbation, diuresed 1900mL with furosemide and discharged home Was home only 2 hr when found unresponsive and hypotensive syncope/hypotension - Admit to telemetry. Ddx- arrhythmia, orthostasis, PE, sz. Check EKG. Check orthostatics. Check V/Q scan. Check EEG, Neuro consult. Hold antihypertensives and diuretics. TTE 10/02/23: 1. Normal LV ejection fraction of 60 65% with mild LVH with impaired relaxation filling pattern 2. Mild aortic regurgitation with calcific aortic and mitral valve changes noted 3. Upper limits of normal RV systolic pressure anemia - likely anemia of CKD but check FOBT + trend H+H hyperK - mild, give 1 dose SZC and recheck BMP in AM acute-chronic hypoxic RF - wean O2 as tolerated, V/Q scan as above chronic HFpEF - hold diuresis + carvedilol + Imdur + lisinopril for now due to hypotensive episode CAD + recent NSTEMi HTN - continue DAPT + statin; hold carvedilol, Imdur, lisinopril, and amlodipine CKD3 - SCr around baseline, monitor chronic hypoxic resp failure due to COPD - PCT low, bilateral lower lobe infiltrates on CXR likely residual from recent PNA - continue maintenance + rescue inhalers DM2, recent A1c 7.7 - basal-bolus insulin + Jardiance - A1c 7.7 - reduce glargine dose; continue lispro + Jardiance COPD with chronic hypoxic resp failure - continue maintenance inhalers + prn rescue albuterol CAD with hx NSTEMI HTN - continue DAPT, carvedilol, statin, Imdur, lisinopril, amlodipine CKD3 - SCr around baseline, monitor with diuresis VTE ppx - UFH dispo - TBD code status - full I anticipate that the patient will stay at least 2 midnights as an inpatient in the hospital due to the above reasons. It is neither reasonable nor safe to care for them in a less acute setting. Quality Stroke Does the patient have a stroke diagnosis?: No VTE Prior VTE?: No VTE Risk Level:: Medical - moderate - high VTE Device Contraindication: N/A - Device Ordered VTE Drug Contraindication: N/A - Med Ordered
[2023-10-31 19:11] VITALS: BP 122/51; PULSE 81; RESP 16; TEMP 36.4; O2SAT 94
[2023-10-31 19:13] LABS: C Reactive Protein 2.11 mg/dL (< or = 0.50)
[2023-10-31 19:25] VITALS: BP 126/48; PULSE 86
[2023-10-31 19:30] VITALS: BP 135/47; PULSE 81
[2023-10-31 19:33] VITALS: BP 133/58; PULSE 96
[2023-10-31 19:36] LABS: Procalcitonin 0.12 ng/mL
[2023-10-31] MEDS: Heparin Sodium,Porcine 5,000 UNIT/ML VIAL 5000 UNIT SUBCUT (19:51)
[2023-10-31] MEDS: Sodium Zirconium Cyclosilicate 5 GM POWD.PACK PO (19:51)
[2023-10-31 20:24] LABS: Troponin-I High Sensitivity 10.5 ng/L (<3.5-35.0)
[2023-10-31 21:23] LABS: Glucose, Whole Blood 131 mg/dL (60-115)
[2023-10-31] MEDS: Insulin Glargine,Hum.rec.anlog 100 UNIT/ML 10 ML VIAL 12 UNIT SUBCUT (22:21)
--- NOTE | 2023-10-31 22:52 | PC.NURSE ---
Patient is alert and oriented x3. Patient is able to make his needs known. VSS. O2 Sat 94-96% via oxymask at 5 LPM. Patient denies any pain at present. Patient medicated per MAR. Patient requested a snack. Patient had 100 ML of christine tomasz with sun butter sandwich. POC 132. Patient had BM, pericare provided by optical laboratory technician. Skin assessment completed, skin is intact. Call bhakta placed within patient's reach. Plan of care ongoing.
[2023-11-01] VITALS (10 sets, daily range): BP systolic 105–171; BP diastolic 49–97; PULSE 81–97; RESP 12–24; TEMP 36.4–36.8; O2SAT 92–96; BMI 30.7
--- NOTE | 2023-11-01 | EEG_ITS ---
This is a 16-channel EEG with an EKG lead. The patient is reported alert and awake during the tracing. Background EEG rhythm is low amplitude fast with no obvious asymmetry or paroxysmal tendency. Photic stimulation does not produce any significant abnormality. Hyperventilation is not performed. Cardiac lead does not reveal any significant abnormality. No sharp wave spikes or paroxysmal tendency noted. IMPRESSION: Unremarkable EEG. MD VIRGINIE Araiza/JULISA / [id number]
[2023-11-01] MEDS: 0.9 % Sodium Chloride Flush 3 ML SYRINGE IVFLUSH ×3 (02:20→20:09)
[2023-11-01 07:03] LABS: Hematocrit 30.2 % (42.0-52.0); Hemoglobin 9.6 g/dl (14.0-18.0); Mean Corpuscular HGB Conc 31.8 g/dl (31.0-36.0); Mean Corpuscular Hemoglobin 28.7 pg (27.0-33.0); Mean Corpuscular Volume 90.1 fL (80.0-98.0); Mean Platelet Volume 11.9 fL (9.4-12.4); Platelet Count 152 X10*3/uL (160-400); Red Blood Count 3.35 X10*6/uL (4.60-5.80); Red Cell Distribution Width 15.3 % (11.0-16.0); White Blood Count 8.7 X10*3/uL (4.8-10.8)
[2023-11-01 07:13] LABS: Anion Gap 13 (12-20); Blood Urea Nitrogen 65 mg/dL (9-16); Calcium 7.8 mg/dL (8.4-10.2); Carbon Dioxide 24 mmol/L (22-29); Chloride 108 mmol/L (96-108); Creatinine Clr Calc Pharmacy 36.4; Estimated Glomerular Filt Rate 40; Glucose Random 185 mg/dL (60-115); Potassium 4.7 mmol/L (3.3-5.1); Sodium 140 mmol/L (135-145)
[2023-11-01 07:15] LABS: Glucose, Whole Blood 155 mg/dL (60-115)
[2023-11-01 07:19] LABS: B Type Natriuretic Peptide 76 pg/mL (<100)
--- NOTE | 2023-11-01 08:00 | PC.NURSE ---
Pt is a&ox4 reports sob at rest, states this is his baseline. Pt is on 4lt simple face mask. states he is on home o2 at baseline, Uses walker to get around. abd soft non tender.
[2023-11-01 08:07] LABS: Immature Retic Fraction 3.8 % (2.3-13.4); Retic HGB Equivalent 33.5 pg (30.0-35.0); Reticulocytes Absolute 0.033 X10*6/uL (0.026-0.095)
[2023-11-01] MEDS: Multivitamin TABLET 1 TAB PO (08:10)
[2023-11-01] MEDS: Heparin Sodium,Porcine 5,000 UNIT/ML VIAL 5000 UNIT SUBCUT ×2 (08:10→20:09)
[2023-11-01] MEDS: Ferrous Sulfate 324 MG TABLET.DR PO (08:10)
[2023-11-01] MEDS: Clopidogrel Bisulfate 75 MG TABLET PO (08:10)
[2023-11-01] MEDS: Aspirin 81 MG TAB.CHEW PO (08:11)
[2023-11-01] MEDS: Atorvastatin Calcium 80 MG TABLET PO (08:11)
[2023-11-01 08:15] LABS: Iron 50 mcg/dL (45-160); Lactate Dehydrogenase 265 U/L (118-273); Percent Iron Saturation 40 % (15-50); Total Iron Binding Capacity 125 mcg/dL (228-428); Unsaturated Iron Binding 75 ug/dL
[2023-11-01] MEDS: Empagliflozin 10 MG TABLET PO (08:19)
--- NOTE | 2023-11-01 08:30 | PC.NURSE ---
Pt transfered to [facility].
[2023-11-01 08:35] LABS: Ferritin 428 ng/mL (20-250)
[2023-11-01] MEDS: Tiotropium Bromide 2.5 mcg 1 PUFF/2.5 MCG MIST.INHAL INHALE (08:53)
--- NOTE | 2023-11-01 09:07 | PC.NURSE ---
Pt back from [facility].
--- NOTE | 2023-11-01 11:38 | P.CNNE_ITS ---
History of Present Illness Data of Consult Service Date: 11/01/23 Primary Care Provider: Elisa Lyman MD [facility] Reason for consult: Dizziness 78 yo M with DM2, HTN, HLD, COPD/chronic hypoxia on 3L O2, CKD3, HFpEF, CAD s/p recent NSTEMI on DAPT, hx ARDS Recent admissions here 10/03-10/14/23 for pneumonia + STEMI, came to hospital for an episode of dizziness. He said that he recently when back home and while he was there he felt dizzy. This happened when he stood up. Everything was moving. There was no focal weakness. There was no pain. He remembered the event stating that he was not confused. There was no ear or eye symptom. Review of Systems 2 Review of Systems: As per HPI [facility] Past Medical History Medical History Acute non-ST elevation myocardial infarction (NSTEMI) Adult respiratory distress syndrome Hyperlipidemia Hypertension Diabetes mellitus, type 2 Chronic respiratory failure with hypoxia COPD (chronic obstructive pulmonary disease) CKD (chronic kidney disease) CHF (congestive heart failure) Coronary artery disease Family History Family History Other Cancer Surgical History Surgical History S/P coronary artery stent placement Social History Social History Household Members: Spouse and Children Housing: House Do you presently have visiting nurse or other home services: No Alcohol intake: never Patient Tobacco Use Status: Former Tobacco user Smoked in Last 30 Days: No Second Hand Smoke Exposure: No Use of substances other than those prescribed or required for medical reasons: No Advance Directives: No Advance Directives Information Provided: No Nutrition Risks: No Nutritional Risk service: No Meds Allergies Allergy/AdvReac Type Severity Reaction Status Date / Time No Known Allergies Allergy Verified 10/31/23 14:53 Active Medications: Current Medications Acetaminophen (Acetaminophen 325 Mg Tablet) 650 mg PO Q6H PRN PRN Reason: Pain, Mild (Pain Scale 1-3) Albuterol/Ipratropium (Albuterol/Iprat 2.5/0.5mg 3 Ml Ampul.Neb) 3 ml INHALE Q6H PRN PRN Reason: Shortness Of Breath Aspirin (Aspirin 81 Mg Tab.Chew) 81 mg PO DAILY [facility] Last Admin: 11/01/23 08:11 Dose: 81 mg Atorvastatin Calcium (Atorvastatin Calcium 80 Mg Tablet) 80 mg PO DAILY [facility] Last Admin: 11/01/23 08:11 Dose: 80 mg Clopidogrel Bisulfate (Clopidogrel Bisulfate 75 Mg Tablet) 75 mg PO DAILY [facility] Last Admin: 11/01/23 08:10 Dose: 75 mg Empagliflozin (Empagliflozin 10 Mg Tablet) 10 mg PO DAILY [facility] Last Admin: 11/01/23 08:19 Dose: 10 mg Ferrous Sulfate (Ferrous Sulfate 324 Mg Tablet.Dr) 324 mg PO DAILY [facility] Last Admin: 11/01/23 08:10 Dose: 324 mg Heparin Sodium (Porcine) (Heparin Sodium,Porcine 5,000 Unit/Ml Vial) 5,000 unit SUBCUT Q12H [facility] Last Admin: 11/01/23 08:10 Dose: 5,000 unit Insulin Glargine (Insulin Glargine,Hum.Rec.Anlog 100 Unit/Ml 10 Ml Vial) 12 unit SUBCUT BEDTIME [facility] Last Admin: 10/31/23 22:21 Dose: 12 unit Multivitamins/Vitamin C (Multivitamin Tablet) 1 tab PO DAILY [facility] Last Admin: 11/01/23 08:10 Dose: 1 tab Nitroglycerin (Nitroglycerin 0.4 Mg Tab.Subl) 0.4 mg SUBLINGUAL Q5M PRN PRN Reason: Chest Pain Nystatin (Nystatin Powder 15 Gm Bottle) 1 appl TOPICAL BID PRN; Protocol PRN Reason: Rash Ondansetron HCl (Ondansetron Hcl 4 Mg/2 Ml Vial) 4 mg IVPUSH Q8H PRN PRN Reason: Nausea and Vomiting Sodium Chloride (0.9 % Sodium Chloride Flush 3 Ml Syringe) 3 ml IVFLUSH QSHIFT [facility] Last Admin: 11/01/23 08:11 Dose: 3 ml Tiotropium [place] (Tiotropium [place] 2.5 Mcg 1 Puff/2.5 Mcg Mist.Inhal) 1 puff INHALE RDAILY [facility] Last Admin: 11/01/23 08:53 Dose: 1 puff Home Medications Medication Instructions Recorded Confirmed Last Taken Type aspirin 81 mg chewable tablet 1 tab PO DAILY 10/03/23 10/31/23 10/29/23 History atorvastatin 80 mg tablet 80 mg PO DAILY 10/03/23 10/31/23 10/29/23 History carvedilol 6.25 mg tablet 6.25 mg PO BID 10/03/23 10/31/23 10/29/23 History clopidogrel 75 mg tablet 75 mg PO DAILY 10/03/23 10/31/23 10/29/23 History empagliflozin 10 mg tablet 10 mg PO DAILY 10/03/23 10/31/23 10/29/23 History (Jardiance) ferrous sulfate 325 mg (65 mg 325 mg PO DAILY 10/03/23 10/31/23 10/29/23 History iron) tablet insulin aspart U-100 100 unit/mL See Protocol subcut DIRECTED 10/03/23 10/31/23 10/29/23 History (3 mL) subcutaneous pen (Novolog FlexPen U-100 Insulin aspart) isosorbide mononitrate 60 mg 120 mg PO DAILY 10/03/23 10/31/23 10/29/23 History tablet,extended release 24 hr lisinopril 10 mg tablet 10 mg PO DAILY 10/03/23 10/31/23 10/29/23 History umeclidinium 62.5 mcg/actuation 1 inh inhalation DAILY 10/03/23 10/31/23 10/29/23 History blister powder for inhalation (Incruse Ellipta) ipratropium 0.5 mg-albuterol 3 mg 3 ml inhalation Q6H PRN Shortness 10/29/23 10/31/23 Unknown History (2.5 mg base)/3 mL nebulization Of Breath soln nitroglycerin 0.4 mg sublingual 0.4 mg sublingual Q5M PRN Chest 10/29/23 10/31/23 Unknown History tablet Pain nystatin 100,000 unit/gram topical 1 appl topical BID PRN Rash 10/29/23 10/31/23 Unknown History powder vit C 250 mg-vit E 90 mg-zinc 40 1 cap PO BID 10/29/23 10/31/23 10/29/23 History mg-copper 1 [id number] capsule (PreserVision AREDS-2) Physical Exam 2 Vital Signs: Vital Signs: Last Vital Signs Temp 97.6 F 11/01/23 08:00 Pulse 90 11/01/23 10:49 Resp 20 11/01/23 10:49 BP 171/58 H 11/01/23 10:49 Pulse Ox 94 11/01/23 10:49 O2 Del Method Oxymask 11/01/23 10:49 O2 Flow Rate 3 11/01/23 10:49 Oxygen Flow Rate 10 10/31/23 14:48 BMI result Body Mass Index 31.6 Neuro: Other: He is alert and awake with normal spontaneity of speech fluency comprehension and affect. He is breathing through mask. Visual hernandez are full. Face is symmetrical. There is no pronator drift. [id number] testing is normal. Speech is normal. Results Labs 11/01/23 06:06 11/01/23 06:06 Labs: Short CBC 10/31/23 11/01/23 Range/Units 17:09 06:06 WBC 12.0 H 8.7 (4.8-10.8) X10*3/uL Hgb 9.8 L 9.6 L (14.0-18.0) g/dl Hct 31.3 L 30.2 L (42.0-52.0) % Plt Count 172 152 L (160-400) X10*3/uL BMP 10/31/23 11/01/23 17:08 06:06 Sodium 140 140 Potassium 5.3 H 4.7 Chloride 105 108 Carbon Dioxide 28 24 BUN 69 H 65 H Creatinine 1.89 H 1.66 H Calcium 8.0 L 7.8 L Liver Function 10/31/23 Range/Units 17:08 Total Bilirubin 0.5 (0.0-1.0) mg/dL Direct Bilirubin 0.3 (0.0-0.5) mg/dL AST 17 (5-37) U/L ALT 24 (0-40) U/L Alkaline Phosphatase 60 (39-117) U/L Albumin 3.0 L (3.5-5.0) g/dL Head CT revealed moderately severe diffuse cerebral atrophy. Assessment and Plan (1) Dizziness: Status: Acute 78 years old man with multiple medical issues including recent pneumonia an MRI with an episode of dizziness. Overall story was nonspecific not particularly relating to any type of dizziness. Differential diagnosis was brought and my suggestion is to rule out infection and if no other etiology is found, consider EEG that can be done as an outpatient. Procedures Date of Service Date of Service: 11/01/23
--- NOTE | 2023-11-01 12:00 | PC.NURSE ---
Family at bedside looking for update Dr Kwong aware
--- NOTE | 2023-11-01 12:47 | MHC.CM.PN ---
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 HE USES A WALKER, WHEELCHAIR, HOME O2 THROUGH [facility] (UP TO 5 l VIA CANNULA), AND [facility] PROVIDES P.T. ON SATURDAY AND SATURDAY AND RN SKILLS ON SATURDAY. [place] [facility] [place] FILE AND VERIFIED. REFERRAL PLACED OT [facility] IMM 11/01 COPY IN CHART
--- NOTE | 2023-11-01 13:28 | P.PNIM_ITS ---
Subjective Subjective Date of Service: 11/01/23 Interval History: not dizzy, not lightheaded no dyspnea Review of Systems Review of Systems: Yes all other systems are reviewed and are negative Physical Exam 2 Vital Signs: Vital Signs: Last Vital Signs Temp 97.6 F 11/01/23 08:00 Pulse 97 11/01/23 12:00 Resp 16 11/01/23 12:00 BP 131/97 H 11/01/23 12:00 Pulse Ox 93 11/01/23 12:00 O2 Del Method Simple Mask 11/01/23 12:00 O2 Flow Rate 4 11/01/23 12:00 Oxygen Flow Rate 10 10/31/23 14:48 BMI result Body Mass Index 31.6 Gen: in no acute distress, on 4L O2 HEENT: sclera anicteric, moist mucus membranes Neck: supple Lungs: clear to auscultation bilaterally Heart: regular rate and rhythm, no murmurs Abd: soft, non-tender, non-distended Ext: no LE edema Skin: warm/well-perfused Neuro: alert and oriented x3, no focal findings Psych: appropriate affect Objective Data Active Medications Acetaminophen (Acetaminophen 325 Mg Tablet) 650 mg PO Q6H PRN PRN Reason: Pain, Mild (Pain Scale 1-3) Albuterol/Ipratropium (Albuterol/Iprat 2.5/0.5mg 3 Ml Ampul.Neb) 3 ml INHALE Q6H PRN PRN Reason: Shortness Of Breath Aspirin (Aspirin 81 Mg Tab.Chew) 81 mg PO DAILY [facility] Last Admin: 11/01/23 08:11 Dose: 81 mg Documented By: SUBHA Atorvastatin Calcium (Atorvastatin Calcium 80 Mg Tablet) 80 mg PO DAILY [facility] Last Admin: 11/01/23 08:11 Dose: 80 mg Documented By: SUBHA Clopidogrel Bisulfate (Clopidogrel Bisulfate 75 Mg Tablet) 75 mg PO DAILY [facility] Last Admin: 11/01/23 08:10 Dose: 75 mg Documented By: SUBHA Empagliflozin (Empagliflozin 10 Mg Tablet) 10 mg PO DAILY [facility] Last Admin: 11/01/23 08:19 Dose: 10 mg Documented By: SUBHA Ferrous Sulfate (Ferrous Sulfate 324 Mg Tablet.) 324 mg PO DAILY [facility] Last Admin: 11/01/23 08:10 Dose: 324 mg Documented By: SUBHA Heparin Sodium (Porcine) (Heparin Sodium,Porcine 5,000 Unit/Ml Vial) 5,000 unit SUBCUT Q12H [facility] Last Admin: 11/01/23 08:10 Dose: 5,000 unit Documented By: SUBHA Insulin Glargine (Insulin Glargine,Hum.Rec.Anlog 100 Unit/Ml 10 Ml Vial) 12 unit SUBCUT BEDTIME [facility] Last Admin: 10/31/23 22:21 Dose: 12 unit Documented By: PHILL Multivitamins/Vitamin C (Multivitamin Tablet) 1 tab PO DAILY [facility] Last Admin: 11/01/23 08:10 Dose: 1 tab Documented By: SUBHA Nitroglycerin (Nitroglycerin 0.4 Mg Tab.Subl) 0.4 mg SUBLINGUAL Q5M PRN PRN Reason: Chest Pain Nystatin (Nystatin Powder 15 Gm Bottle) 1 appl TOPICAL BID PRN; Protocol PRN Reason: Rash Ondansetron HCl (Ondansetron Hcl 4 Mg/2 Ml Vial) 4 mg IVPUSH Q8H PRN PRN Reason: Nausea and Vomiting Sodium Chloride (0.9 % Sodium Chloride Flush 3 Ml Syringe) 3 ml IVFLUSH QSHIFT [facility] Last Admin: 11/01/23 08:11 Dose: 3 ml Documented By: SUBHA Tiotropium [place] (Tiotropium [place] 2.5 Mcg 1 Puff/2.5 Mcg Mist.Inhal) 1 puff INHALE RDAILY [facility] Last Admin: 11/01/23 08:53 Dose: 1 puff Documented By: SUBHA Labs 11/01/23 06:06 11/01/23 06:06 Labs: Laboratory Results - last 24 hr 10/31/23 10/31/23 10/31/23 17:08 17:09 21:19 MCV 90.2 MCH 28.2 MCHC 31.3 Impressions Chest X-Ray 10/31/23 15:05 IMPRESSION: No change in left upper lobe infiltrate and prominent increase interstitial markings in bilateral lower lobes. No new infiltrates or worsening seen. Head CT 10/31/23 19:38 IMPRESSION: 1. No acute intracranial abnormality. Specifically, no CT evidence of acute intracranial hemorrhage, significant mass effect, hydrocephalus, or large territorial infarction. Mild to moderate global cerebral volume loss and mild chronic microangiopathy. 2. Empty sella. Pulmonary Perfusion Imaging 11/01/23 09:15 IMPRESSION: Low probability of pulmonary embolism. Stable abnormalities are present, most prominently in the left upper lobe, and these appear well matched to the infiltrate on the contemporaneous chest radiograph. RDW 15.2 Plt Count 172 MPV 11.2 Immature Gran % (Auto) 0.3 Neut % (Auto) 75.0 H Lymph % (Auto) 12.0 L [place] % (Auto) 7.7 Eos % (Auto) 4.6 H Baso % (Auto) 0.4 Lymph # (Auto) 1.4 [place] # (Auto) 0.9 Eos # (Auto) 0.6 H Baso # (Auto) 0.1 Abs Immat Gran (auto) 0.04 H Absolute Neuts (auto) 9.0 H Absolute Nucleated RBC 0.000 Nucleated RBC % (auto) 0.0 Absolute Retic Percent Retic Immature Retic Fraction Retic Hgb Equivalent Anion Gap 12 Estim Creat Clear Calc 31.9 Estimated GFR 35 POC Glucose 131 H Random Glucose 78 Lactic Acid 0.8 Calcium 8.0 L Iron TIBC % Saturation Unsat Iron Binding Ferritin Total Bilirubin 0.5 Direct Bilirubin 0.3 AST 17 ALT 24 Alkaline Phosphatase 60 Ammonia 28 Lactate Dehydrogenase C-Reactive Protein 2.11 H B-Natriuretic Peptide 93 Total Protein 5.9 L Albumin 3.0 L Procalcitonin 0.12 11/01/23 11/01/23 06:06 07:11 MCV 90.1 MCH 28.7 MCHC 31.8 RDW 15.3 Plt Count 152 L MPV 11.9 Immature Gran % (Auto) Neut % (Auto) Lymph % (Auto) [place] % (Auto) Eos % (Auto) Baso % (Auto) Lymph # (Auto) [place] # (Auto) Eos # (Auto) Baso # (Auto) Abs Immat Gran (auto) Absolute Neuts (auto) Absolute Nucleated RBC 0.000 Nucleated RBC % (auto) 0.0 Absolute Retic 0.033 Percent Retic 1.0 Immature Retic Fraction 3.8 Retic Hgb Equivalent 33.5 Anion Gap 13 Estim Creat Clear Calc 36.4 Estimated GFR 40 POC Glucose 155 H Random Glucose 185 H Lactic Acid Calcium 7.8 L Iron 50 TIBC 125 L % Saturation 40 Unsat Iron Binding 75 Ferritin 428 H Total Bilirubin Direct Bilirubin AST ALT Alkaline Phosphatase Ammonia Lactate Dehydrogenase 265 C-Reactive Protein B-Natriuretic Peptide 76 Total Protein Albumin Procalcitonin Assessment and Plan (1) Dizziness: Status: Acute (2) Syncope and collapse: Status: Acute Plan d2 78yo M with DM2, HTN, HLD, COPD/chronic hypoxia on 3L O2, CKD3, HFpEF, CAD s/p recent NSTEMI on DAPT, hx ARDS Recent admissions here 10/03-10/14/23 for pneumonia + STEMI, 10/29-10/31/23 for CHF exacerbation, diuresed 1900mL with furosemide and discharged home Was home only 2 hr when found unresponsive and hypotensive syncope/hypotension - no arrhythmias on telemetry, orthostatics negative, VQ low-prob. EEG + Neuro consult pending. Continue to hold antihypertensives and diuretics. TTE 10/02/23: 1. Normal LV ejection fraction of 60 65% with mild LVH with impaired relaxation filling pattern 2. Mild aortic regurgitation with calcific aortic and mitral valve changes noted 3. Upper limits of normal RV systolic pressure anemia - likely anemia of CKD but check FOBT and continue to trend H+H hyperK - resolved p 1 dose of SZC, was mild chronic HFpEF - hold diuresis + carvedilol + Imdur + lisinopril for now due to hypotensive episode CAD + recent NSTEMi HTN - continue DAPT + statin; hold carvedilol, Imdur, lisinopril, and amlodipine CKD3 - SCr around baseline, monitor chronic hypoxic resp failure due to COPD - PCT low, bilateral lower lobe infiltrates on CXR likely residual from recent PNA - continue maintenance + rescue inhalers - wean to 3L O2 baseline dose as tolerated DM2, recent A1c 7.7 - basal-bolus insulin + Jardiance VTE ppx - UFH dispo - PT consult In my clinical judgment, the patient requires continued inpatient hospitalization for the following reasons: monitoring after hypotensive episode Quality Stroke Does the patient have a stroke diagnosis?: No VTE Prior VTE?: No VTE Risk Level:: Medical - moderate - high VTE Device Contraindication: N/A - Device Ordered VTE Drug Contraindication: N/A - Med Ordered
--- NOTE | 2023-11-01 14:25 | PC.NURSE ---
Pt tramsported to EEG
[2023-11-01 20:03] LABS: Glucose, Whole Blood 228 mg/dL (60-115)
[2023-11-01] MEDS: Insulin Glargine,Hum.rec.anlog 100 UNIT/ML 10 ML VIAL 12 UNIT SUBCUT (20:08)
[2023-11-02] VITALS (8 sets, daily range): BP systolic 136–153; BP diastolic 60–70; PULSE 75–103; RESP 12–20; TEMP 36.2–36.8; O2SAT 88–98
[2023-11-02 07:18] LABS: Hematocrit 31.7 % (42.0-52.0); Mean Corpuscular HGB Conc 31.5 g/dl (31.0-36.0); Mean Corpuscular Volume 91.9 fL (80.0-98.0); Mean Platelet Volume 11.7 fL (9.4-12.4); Platelet Count 150 X10*3/uL (160-400); Red Blood Count 3.45 X10*6/uL (4.60-5.80); Red Cell Distribution Width 14.9 % (11.0-16.0)
[2023-11-02 07:47] LABS: Anion Gap 14 (12-20); Blood Urea Nitrogen 49 mg/dL (9-16); Carbon Dioxide 24 mmol/L (22-29); Chloride 108 mmol/L (96-108); Creatinine Clr Calc Pharmacy 41.6; Estimated Glomerular Filt Rate 48; Glucose Random 88 mg/dL (60-115); Sodium 141 mmol/L (135-145)
[2023-11-02 08:19] LABS: Folate 8.7 ng/mL (> or = 4.0); Vitamin B12 667 pg/mL (200-900)
[2023-11-02] MEDS: Heparin Sodium,Porcine 5,000 UNIT/ML VIAL 5000 UNIT SUBCUT ×2 (08:23→21:48)
[2023-11-02] MEDS: Multivitamin TABLET 1 TAB PO (08:23)
[2023-11-02] MEDS: Aspirin 81 MG TAB.CHEW PO (08:23)
[2023-11-02] MEDS: Empagliflozin 10 MG TABLET PO (08:23)
[2023-11-02] MEDS: Clopidogrel Bisulfate 75 MG TABLET PO (08:23)
[2023-11-02] MEDS: Ferrous Sulfate 324 MG TABLET.DR PO (08:23)
[2023-11-02] MEDS: Atorvastatin Calcium 80 MG TABLET PO (08:23)
[2023-11-02] MEDS: 0.9 % Sodium Chloride Flush 3 ML SYRINGE IVFLUSH ×3 (08:25→21:48)
[2023-11-02 08:30] LABS: Glucose, Whole Blood 136 mg/dL (60-115)
[2023-11-02] MEDS: Torsemide 20 MG TABLET PO ×2 (09:03→16:04)
[2023-11-02] MEDS: carvediloL 3.125 MG TABLET PO ×2 (09:03→21:49)
[2023-11-02] MEDS: Tiotropium Bromide 2.5 mcg 1 PUFF/2.5 MCG MIST.INHAL INHALE (09:23)
[2023-11-02 11:18] LABS: Glucose, Whole Blood 154 mg/dL (60-115)
[2023-11-02] MEDS: Insulin Lispro 100 UNIT/ML 3 ML VIAL SUBCUT ×2 (12:00→21:48)
--- NOTE | 2023-11-02 12:05 | P.PNIM_ITS ---
Subjective Subjective Date of Service: 11/02/23 Interval History: no dizziness/lightheadedness no dyspnea Review of Systems Review of Systems: Yes all other systems are reviewed and are negative Physical Exam 2 Vital Signs: Vital Signs: Last Vital Signs Temp 97.1 F 11/02/23 11:37 Pulse 76 11/02/23 11:37 Resp 18 11/02/23 11:37 BP 153/64 H 11/02/23 11:37 Pulse Ox 96 11/02/23 11:37 O2 Del Method Nasal Cannula 11/02/23 11:37 O2 Flow Rate 4 11/02/23 11:37 Oxygen Flow Rate 10 10/31/23 14:48 BMI result Body Mass Index 30.7 Gen: in no acute distress, on 4L O2 HEENT: sclera anicteric, moist mucus membranes Neck: supple Lungs: clear to auscultation bilaterally Heart: regular rate and rhythm, no murmurs Abd: soft, non-tender, non-distended Ext: no LE edema Skin: warm/well-perfused Neuro: alert and oriented x3, no focal findings Psych: appropriate affect Objective Data Active Medications Acetaminophen (Acetaminophen 325 Mg Tablet) 650 mg PO Q6H PRN PRN Reason: Pain, Mild (Pain Scale 1-3) Albuterol/Ipratropium (Albuterol/Iprat 2.5/0.5mg 3 Ml Ampul.Neb) 3 ml INHALE Q6H PRN PRN Reason: Shortness Of Breath Aspirin (Aspirin 81 Mg Tab.Chew) 81 mg PO DAILY [facility] Last Admin: 11/02/23 08:23 Dose: 81 mg Documented By: LAVONNE Atorvastatin Calcium (Atorvastatin Calcium 80 Mg Tablet) 80 mg PO DAILY [facility] Last Admin: 11/02/23 08:23 Dose: 80 mg Documented By: LAVONNE Carvedilol (Carvedilol 3.125 Mg Tablet) 3.125 mg PO BID [facility]; Protocol Last Admin: 11/02/23 09:03 Dose: 3.125 mg Documented By: LAVONNE Clopidogrel Bisulfate (Clopidogrel Bisulfate 75 Mg Tablet) 75 mg PO DAILY [facility] Last Admin: 11/02/23 08:23 Dose: 75 mg Documented By: LAVONNE Dextrose (Dextrose 50 % 25 Gm/50 Ml Syringe) 25 gm IVPUSH Q15M PRN; Protocol PRN Reason: per Hypoglycemia Standing Ord. Empagliflozin (Empagliflozin 10 Mg Tablet) 10 mg PO DAILY [facility] Last Admin: 11/02/23 08:23 Dose: 10 mg Documented By: LAVONNE Ferrous Sulfate (Ferrous Sulfate 324 Mg Tablet.Dr) 324 mg PO DAILY [facility] Last Admin: 11/02/23 08:23 Dose: 324 mg Documented By: LAVONNE Glucose (Glucose Gel 15 Gm Gel..Gram.) 15 gm PO Q15M PRN; Protocol PRN Reason: per Hypoglycemia Standing Ord. Heparin Sodium (Porcine) (Heparin Sodium,Porcine 5,000 Unit/Ml Vial) 5,000 unit SUBCUT Q12H [facility] Last Admin: 11/02/23 08:23 Dose: 5,000 unit Documented By: LAVONNE Insulin Glargine (Insulin Glargine,Hum.Rec.Anlog 100 Unit/Ml 10 Ml Vial) 12 unit SUBCUT BEDTIME [facility] Last Admin: 11/01/23 20:08 Dose: 12 unit Documented By: JOSE Insulin Human Lispro (Insulin Lispro 100 Unit/Ml 3 Ml Vial) 0 unit SUBCUT QIDACHS [facility]; Protocol Last Admin: 11/02/23 12:00 Dose: 2 unit Documented By: LAVONNE Multivitamins/Vitamin C (Multivitamin Tablet) 1 tab PO DAILY [facility] Last Admin: 11/02/23 08:23 Dose: 1 tab Documented By: LAVONNE Nitroglycerin (Nitroglycerin 0.4 Mg Tab.Subl) 0.4 mg SUBLINGUAL Q5M PRN PRN Reason: Chest Pain Nystatin (Nystatin Powder 15 Gm Bottle) 1 appl TOPICAL BID PRN; Protocol PRN Reason: Rash Ondansetron HCl (Ondansetron Hcl 4 Mg/2 Ml Vial) 4 mg IVPUSH Q8H PRN PRN Reason: Nausea and Vomiting Sodium Chloride (0.9 % Sodium Chloride Flush 3 Ml Syringe) 3 ml IVFLUSH QSHIFT [facility] Last Admin: 11/02/23 08:25 Dose: 3 ml Documented By: LAVONNE Tiotropium [place] (Tiotropium [place] 2.5 Mcg 1 Puff/2.5 Mcg Mist.Inhal) 1 puff INHALE RDAILY [facility] Last Admin: 11/02/23 09:23 Dose: 1 puff Documented By: YASSINE Torsemide (Torsemide 20 Mg Tablet) 20 mg PO BID@0800,1500 ANDREW; Protocol Last Admin: 11/02/23 09:03 Dose: 20 mg Documented By: LAVONNE Labs 11/02/23 06:20 11/02/23 06:20 Labs: Laboratory Results - last 24 hr 11/01/23 11/02/23 11/02/23 20:00 06:20 08:27 MCV 91.9 MCH 29.0 MCHC 31.5 RDW 14.9 Plt Count 150 L MPV 11.7 Absolute Nucleated RBC 0.000 Nucleated RBC % (auto) 0.0 Anion Gap 14 Estim Creat Clear Calc 41.6 Estimated GFR 48 POC Glucose 228 H 136 H Random Glucose 88 Calcium 8.0 L Vitamin B12 667 Folate 8.7 11/02/23 11:08 MCV MCH MCHC RDW Plt Count MPV Absolute Nucleated RBC Nucleated RBC % (auto) Anion Gap Estim Creat Clear Calc Estimated GFR POC Glucose 154 H Random Glucose Calcium Vitamin B12 Folate Microbiology Microbiology Results: Microbiology 10/31/23 17:08 Blood Culture - Preliminary Blood - Venous No growth after 24 hours. 10/31/23 17:08 Blood Culture - Preliminary Blood - Venous No growth after 24 hours. Assessment and Plan (1) Dizziness: Status: Acute (2) Syncope and collapse: Status: Acute Plan d3 78yo M with DM2, HTN, HLD, COPD/chronic hypoxia on 3L O2, CKD3, HFpEF, CAD s/p recent NSTEMI on DAPT, hx ARDS Recent admissions here 10/03-10/14/23 for pneumonia + STEMI, 10/29-10/31/23 for CHF exacerbation, diuresed 1900mL with furosemide and discharged home Was home only 2 hr when found unresponsive and hypotensive at home syncope/hypotension - no arrhythmias on telemetry, orthostatics negative, VQ low-prob, no evidence of infection. Neuro consulted, EEG pending; TTE 10/02/23: 1. Normal LV ejection fraction of 60 65% with mild LVH with impaired relaxation filling pattern 2. Mild aortic regurgitation with calcific aortic and mitral valve changes noted 3. Upper limits of normal RV systolic pressure - will resume torsemide and carvedilol; hold Imdur + lisinopril for now anemia - likely anemia of CKD but check FOBT and continue to trend H+H hyperK - resolved p 1 dose of SZC, was mild chronic HFpEF - resume torsemide + carvedilol; reintroduce Imdur and lisinopril as BP tolerates CAD + recent NSTEMi HTN - continue DAPT + statin; resume carvedilol; reintroduce Imdur, lisinopril, and amlodipine as BP tolerates CKD3 - SCr around baseline, monitor chronic hypoxic resp failure due to COPD - PCT low, bilateral lower lobe infiltrates on CXR likely residual from recent PNA - continue maintenance + rescue inhalers - wean to 3L O2 baseline dose as tolerated DM2, recent A1c 7.7 - basal-bolus insulin + Jardiance VTE ppx - UFH dispo - PT consulted. STR still recommended but pt flatly declines In my clinical judgment, the patient requires continued inpatient hospitalization for the following reasons: reintroduction of BP meds with close monitoring given unresposive/hypotensive episode at home Total time managing care of this patient today: 45 minutes. Quality Stroke Does the patient have a stroke diagnosis?: No VTE Prior VTE?: No VTE Risk Level:: Medical - moderate - high VTE Device Contraindication: N/A - Device Ordered VTE Drug Contraindication: N/A - Med Ordered
[2023-11-02 16:13] LABS: Glucose, Whole Blood 143 mg/dL (60-115)
[2023-11-02 21:13] LABS: Glucose, Whole Blood 206 mg/dL (60-115)
[2023-11-02] MEDS: Insulin Glargine,Hum.rec.anlog 100 UNIT/ML 10 ML VIAL 12 UNIT SUBCUT (21:48)
[2023-11-03] VITALS (8 sets, daily range): BP systolic 104–143; BP diastolic 53–66; PULSE 69–89; RESP 17–20; TEMP 36.1–37.1; O2SAT 91–97
[2023-11-03 06:59] LABS: Hematocrit 32.2 % (42.0-52.0); Mean Corpuscular HGB Conc 31.1 g/dl (31.0-36.0); Mean Corpuscular Hemoglobin 28.7 pg (27.0-33.0); Mean Corpuscular Volume 92.5 fL (80.0-98.0); Mean Platelet Volume 11.7 fL (9.4-12.4); Platelet Count 156 X10*3/uL (160-400); Red Blood Count 3.48 X10*6/uL (4.60-5.80); Red Cell Distribution Width 14.7 % (11.0-16.0); White Blood Count 9.1 X10*3/uL (4.8-10.8)
[2023-11-03 07:18] LABS: B Type Natriuretic Peptide 58 pg/mL (<100)
[2023-11-03 07:22] LABS: Anion Gap 18 (12-20); Blood Urea Nitrogen 50 mg/dL (9-16); Calcium 8.1 mg/dL (8.4-10.2); Carbon Dioxide 24 mmol/L (22-29); Chloride 104 mmol/L (96-108); Creatinine Clr Calc Pharmacy 34.2; Estimated Glomerular Filt Rate 38; Glucose Random 48 mg/dL (60-115); Magnesium 2.1 mg/dL (1.6-2.6); Potassium 5.5 mmol/L (3.3-5.1); Sodium 140 mmol/L (135-145)
[2023-11-03 07:36] LABS: Glucose, Whole Blood 85 mg/dL (60-115)
[2023-11-03] MEDS: Atorvastatin Calcium 80 MG TABLET PO (08:06)
[2023-11-03] MEDS: Clopidogrel Bisulfate 75 MG TABLET PO (08:06)
[2023-11-03] MEDS: Multivitamin TABLET 1 TAB PO (08:07)
[2023-11-03] MEDS: Heparin Sodium,Porcine 5,000 UNIT/ML VIAL 5000 UNIT SUBCUT ×2 (08:07→21:01)
[2023-11-03] MEDS: Sodium Zirconium Cyclosilicate 10 GM POWD.PACK PO (08:07)
[2023-11-03] MEDS: Isosorbide Mononitrate 30 MG TAB.ER.24H 15 MG PO (08:07)
[2023-11-03] MEDS: Empagliflozin 10 MG TABLET PO (08:07)
[2023-11-03] MEDS: Aspirin 81 MG TAB.CHEW PO (08:07)
[2023-11-03] MEDS: carvediloL 3.125 MG TABLET PO ×2 (08:07→21:01)
[2023-11-03] MEDS: Ferrous Sulfate 324 MG TABLET.DR PO (08:07)
[2023-11-03] MEDS: Torsemide 20 MG TABLET PO ×2 (08:07→15:04)
[2023-11-03] MEDS: 0.9 % Sodium Chloride Flush 3 ML SYRINGE IVFLUSH ×3 (08:14→21:05)
[2023-11-03] MEDS: Tiotropium Bromide 2.5 mcg 1 PUFF/2.5 MCG MIST.INHAL INHALE (08:30)
--- NOTE | 2023-11-03 10:46 | P.PNIM_ITS ---
Subjective Subjective Date of Service: 11/03/23 Interval History: hypoglycemic to 48 this AM no lightheadedness or dizziness no chest pain no dyspnea This history was taken in [place] from the patient. Review of Systems Review of Systems: Yes all other systems are reviewed and are negative Physical Exam 2 Vital Signs: Vital Signs: Last Vital Signs Temp 98.6 F 11/03/23 07:20 Pulse 75 11/03/23 08:33 Resp 18 11/03/23 08:33 BP 125/59 L 11/03/23 07:20 Pulse Ox 97 11/03/23 07:20 O2 Del Method Nasal Cannula 11/03/23 07:20 O2 Flow Rate 4 11/03/23 04:00 Oxygen Flow Rate 10 10/31/23 14:48 BMI result Body Mass Index 30.7 Gen: in no acute distress HEENT: sclera anicteric, moist mucus membranes Neck: supple Lungs: clear to auscultation bilaterally Heart: regular rate and rhythm, no murmurs Abd: soft, non-tender, non-distended Ext: no LE edema Skin: warm/well-perfused Neuro: alert and oriented x3, no focal findings Psych: appropriate affect Objective Data Active Medications Acetaminophen (Acetaminophen 325 Mg Tablet) 650 mg PO Q6H PRN PRN Reason: Pain, Mild (Pain Scale 1-3) Albuterol/Ipratropium (Albuterol/Iprat 2.5/0.5mg 3 Ml Ampul.Neb) 3 ml INHALE Q6H PRN PRN Reason: Shortness Of Breath Aspirin (Aspirin 81 Mg Tab.Chew) 81 mg PO DAILY [facility] Last Admin: 11/03/23 08:07 Dose: 81 mg Documented By: LAVONNE Atorvastatin Calcium (Atorvastatin Calcium 80 Mg Tablet) 80 mg PO DAILY [facility] Last Admin: 11/03/23 08:06 Dose: 80 mg Documented By: LAVONNE Carvedilol (Carvedilol 3.125 Mg Tablet) 3.125 mg PO BID [facility]; Protocol Last Admin: 11/03/23 08:07 Dose: 3.125 mg Documented By: LAVONNE Clopidogrel Bisulfate (Clopidogrel Bisulfate 75 Mg Tablet) 75 mg PO DAILY [facility] Last Admin: 11/03/23 08:06 Dose: 75 mg Documented By: LAVONNE Dextrose (Dextrose 50 % 25 Gm/50 Ml Syringe) 25 gm IVPUSH Q15M PRN; Protocol PRN Reason: per Hypoglycemia Standing Ord. Empagliflozin (Empagliflozin 10 Mg Tablet) 10 mg PO DAILY [facility] Last Admin: 11/03/23 08:07 Dose: 10 mg Documented By: LAVONNE Ferrous Sulfate (Ferrous Sulfate 324 Mg Tablet.Dr) 324 mg PO DAILY [facility] Last Admin: 11/03/23 08:07 Dose: 324 mg Documented By: LAVONNE Glucose (Glucose Gel 15 Gm Gel..Gram.) 15 gm PO Q15M PRN; Protocol PRN Reason: per Hypoglycemia Standing Ord. Heparin Sodium (Porcine) (Heparin Sodium,Porcine 5,000 Unit/Ml Vial) 5,000 unit SUBCUT Q12H [facility] Last Admin: 11/03/23 08:07 Dose: 5,000 unit Documented By: LAVONNE Insulin Glargine (Insulin Glargine,Hum.Rec.Anlog 100 Unit/Ml 10 Ml Vial) 5 unit SUBCUT BEDTIME [facility] Insulin Human Lispro (Insulin Lispro 100 Unit/Ml 3 Ml Vial) 0 unit SUBCUT QIDACHS [facility]; Protocol Last Admin: 11/03/23 08:03 Dose: Not Given Documented By: LAVONNE Non-Admin Reason: No Insulin Coverage Isosorbide Mononitrate (Isosorbide Mononitrate 30 Mg Tab.Er.24h) 15 mg PO DAILY [facility]; Protocol Last Admin: 11/03/23 08:07 Dose: 15 mg Documented By: LAVONNE Multivitamins/Vitamin C (Multivitamin Tablet) 1 tab PO DAILY [facility] Last Admin: 11/03/23 08:07 Dose: 1 tab Documented By: LAVONNE Nitroglycerin (Nitroglycerin 0.4 Mg Tab.Subl) 0.4 mg SUBLINGUAL Q5M PRN PRN Reason: Chest Pain Nystatin (Nystatin Powder 15 Gm Bottle) 1 appl TOPICAL BID PRN; Protocol PRN Reason: Rash Ondansetron HCl (Ondansetron Hcl 4 Mg/2 Ml Vial) 4 mg IVPUSH Q8H PRN PRN Reason: Nausea and Vomiting Sodium Chloride (0.9 % Sodium Chloride Flush 3 Ml Syringe) 3 ml IVFLUSH QSHIFT [facility] Last Admin: 11/03/23 08:14 Dose: 3 ml Documented By: LAVONNE Tiotropium [place] (Tiotropium [place] 2.5 Mcg 1 Puff/2.5 Mcg Mist.Inhal) 1 puff INHALE RDAILY [facility] Last Admin: 11/03/23 08:30 Dose: 1 puff Documented By: KADY Torsemide (Torsemide 20 Mg Tablet) 20 mg PO BID@0800,1500 ANDREW; Protocol Last Admin: 11/03/23 08:07 Dose: 20 mg Documented By: LAVONNE Labs 11/03/23 06:07 11/03/23 06:07 Labs: Laboratory Results - last 24 hr 11/02/23 11/02/23 11/02/23 11:08 16:10 21:00 MCV MCH MCHC RDW Plt Count MPV Absolute Nucleated RBC Nucleated RBC % (auto) Anion Gap Estim Creat Clear Calc Estimated GFR POC Glucose 154 H 143 H 206 H Random Glucose Calcium Magnesium B-Natriuretic Peptide 11/03/23 11/03/23 06:07 07:33 MCV 92.5 MCH 28.7 MCHC 31.1 RDW 14.7 Plt Count 156 L MPV 11.7 Absolute Nucleated RBC 0.000 Nucleated RBC % (auto) 0.0 Anion Gap 18 Estim Creat Clear Calc 34.2 Estimated GFR 38 POC Glucose 85 Random Glucose 48 L* Calcium 8.1 L Magnesium 2.1 B-Natriuretic Peptide 58 Microbiology Microbiology Results: Microbiology 10/31/23 17:08 Blood Culture - Preliminary Blood - Venous No growth after 48 hours. 10/31/23 17:08 Blood Culture - Preliminary Blood - Venous No growth after 48 hours. Assessment and Plan (1) Dizziness: Status: Acute (2) Syncope and collapse: Status: Acute Plan d4 78yo M with DM2, HTN, HLD, COPD/chronic hypoxia on 3L O2, CKD3, HFpEF, CAD s/p recent NSTEMI on DAPT, hx ARDS Recent admissions here 10/03-10/14/23 for pneumonia + STEMI, 10/29-10/31/23 for CHF exacerbation, diuresed 1900mL with furosemide and discharged home Was home only 2 hr when found unresponsive and hypotensive at home syncope/hypotension - no arrhythmias on telemetry, orthostatics negative, VQ low-prob, no evidence of infection. Neuro consulted, EEG pending; TTE 10/02/23: 1. Normal LV ejection fraction of 60 65% with mild LVH with impaired relaxation filling pattern 2. Mild aortic regurgitation with calcific aortic and mitral valve changes noted 3. Upper limits of normal RV systolic pressure - resumed torsemide and carvedilol [dose reduced] 11/02; restart Imdur but lower dose today; hold lisinopril + amlodipine anemia - likely anemia of CKD but check FOBT and continue to trend H+H hyperK - resolved p 1 dose of SZC, was mild chronic HFpEF CAD + recent NSTEMi HTN - resumed torsemide + carvedilol 11/02; reintroduce Imdur today; hold lisinopril + amlodipine - continue Jardiance - continue DAPT - continue statin CKD3 - SCr around baseline, monitor chronic hypoxic resp failure due to COPD - PCT low, bilateral lower lobe infiltrates on CXR likely residual from recent PNA - continue maintenance + rescue inhalers - wean to 3L O2 baseline dose as tolerated DM2, recent A1c 7.7, with hypoglycemia - Lantus was decreased from 25 to 12 units last admission. Decrease further to 5 units given recurrence of hypoglycemia. - continue Jardiance VTE ppx - UFH dispo - PT consulted. STR still recommended but pt flatly declines In my clinical judgment, the patient requires continued inpatient hospitalization for the following reasons: reintroduction of BP meds with close monitoring given unresposive/hypotensive episode at home Total time managing care of this patient today: 35 minutes. Quality Stroke Does the patient have a stroke diagnosis?: No VTE Prior VTE?: No VTE Risk Level:: Medical - moderate - high VTE Device Contraindication: N/A - Device Ordered VTE Drug Contraindication: N/A - Med Ordered
[2023-11-03 11:00] LABS: Glucose, Whole Blood 159 mg/dL (60-115)
[2023-11-03] MEDS: Insulin Lispro 100 UNIT/ML 3 ML VIAL SUBCUT ×2 (11:42→16:45)
[2023-11-03 16:30] LABS: Glucose, Whole Blood 230 mg/dL (60-115)
[2023-11-03 20:31] LABS: Glucose, Whole Blood 112 mg/dL (60-115)
[2023-11-03] MEDS: Insulin Glargine,Hum.rec.anlog 100 UNIT/ML 10 ML VIAL SUBCUT (21:02)
[2023-11-04 03:18] VITALS: BP 110/79; PULSE 78; RESP 18; TEMP 36.7; O2SAT 97
[2023-11-04 07:12] VITALS: BP 129/60; PULSE 75; RESP 18; TEMP 36.4; O2SAT 98
[2023-11-04 07:17] LABS: Glucose, Whole Blood 79 mg/dL (60-115)
[2023-11-04 07:22] LABS: Anion Gap 15 (12-20); Blood Urea Nitrogen 52 mg/dL (9-16); Calcium 7.8 mg/dL (8.4-10.2); Carbon Dioxide 24 mmol/L (22-29); Chloride 102 mmol/L (96-108); Creatinine Clr Calc Pharmacy 31.8; Estimated Glomerular Filt Rate 35; Glucose Random 77 mg/dL (60-115); Potassium 4.8 mmol/L (3.3-5.1); Sodium 136 mmol/L (135-145)
[2023-11-04 07:47] VITALS: BP 125/61; PULSE 85
[2023-11-04] MEDS: Tiotropium Bromide 2.5 mcg 1 PUFF/2.5 MCG MIST.INHAL INHALE (08:02)
[2023-11-04 08:04] VITALS: PULSE 74; RESP 18; O2SAT 96
[2023-11-04] MEDS: Aspirin 81 MG TAB.CHEW PO (08:38)
[2023-11-04] MEDS: Torsemide 20 MG TABLET PO ×2 (08:38→14:37)
[2023-11-04] MEDS: Heparin Sodium,Porcine 5,000 UNIT/ML VIAL 5000 UNIT SUBCUT (08:38)
[2023-11-04] MEDS: carvediloL 3.125 MG TABLET PO (08:38)
[2023-11-04] MEDS: Empagliflozin 10 MG TABLET PO (08:39)
[2023-11-04] MEDS: Multivitamin TABLET 1 TAB PO (08:39)
[2023-11-04] MEDS: Ferrous Sulfate 324 MG TABLET.DR PO (08:39)
[2023-11-04] MEDS: Isosorbide Mononitrate 30 MG TAB.ER.24H 15 MG PO (08:39)
[2023-11-04] MEDS: Clopidogrel Bisulfate 75 MG TABLET PO (08:39)
[2023-11-04] MEDS: Atorvastatin Calcium 80 MG TABLET PO (08:39)
[2023-11-04] MEDS: 0.9 % Sodium Chloride Flush 3 ML SYRINGE IVFLUSH (08:40)
[2023-11-04 08:50] VITALS: BP 128/59; BP 151/68; PULSE 101; PULSE 79
[2023-11-04 11:19] VITALS: BP 145/64; PULSE 77; RESP 18; TEMP 36.5; O2SAT 97
[2023-11-04 11:30] LABS: Glucose, Whole Blood 168 mg/dL (60-115)
[2023-11-04] MEDS: Insulin Lispro 100 UNIT/ML 3 ML VIAL SUBCUT (12:18)
--- NOTE | 2023-11-04 12:48 | MHC.CM.PN ---
PER HOSPITALIST ANTIC PT TO BE MEDICALLY CLEARED FOR DC, PT DECLINING STR AND WILL RESUME SN/PT W/[facility], VNA UPDATED VIA [facility] AND PT CALL HIS DTR ONCE DC PAPERWORK IS DONE.
--- NOTE | 2023-11-04 13:37 | PM.DS ---
DS: Providers Provider Date of Service: 11/04/23 Date of admission: 10/31/23 18:51 Date of discharge: 11/04/23 Primary care physician: Elisa Lyman MD Consults: 10/31/23 18:53 Consult to Neurology Routine Consulting Provider: [facility] Reason for consultation: unreponsive episode DS: Diagnosis Discharge Diagnosis (1) Dizziness: Status: Acute (2) Syncope and collapse: Status: Acute (3) Hypotension: Status: Acute (4) Chronic heart failure with preserved ejection fraction (HFpEF): Status: Acute (5) Type 2 diabetes mellitus with hypoglycemia: Status: Acute (6) Chronic kidney disease, stage 3: Status: Acute DS: Summary Hospital Course Hospital Course: from my admission H+P, 10/31/23: 78yo who I just discharged from here this morning. From my discharge summary: '78yo M with DM2, HTN, HLD, COPD with chronic hypoxia on 3L O2, CKD3, HFpEF, CAD s/p NSTEMI on DAPT, and hx ARDS who was recently admitted to [facility] 10/03-10/14/23 for multifocal pneumonia and NSTEMI. This time, he was admitted for worsening hypoxia due to CHF exacerbation. He was admitted to the telemetry and was diuresed net -1900 mL with IV furosemide. Oxygen requirement decreased to his baseline of 3L via NC. Lung infiltrates were likely residual from recent pneumonia, given low procalcitonin and lack of fever or productive cough. He was seen by PT and STR was recommended; however, the patient declined. VNA services were arranged and the patient was discharged on a higher dose of torsemide (20 mg bid) with instructions to follow up with Cardiology in 1 week. Lantus dose was also decreased from 25 to 12 units daily due to asymptomatic hypoglycemia.' He was home for 2 hours and last remembers being in his bed and trying to get up to go to the bathroom. His found him in his bed unresponsive. He was incontinent of urine. No seizure-like activity. EMS found him hypotensive with BP 60/30, non-palpable radial pulse. He was breathing shallowly. POC BG was 130. He was saturating in the low 80s on oxygen. By the time he arrived in the ED, BP was 105/43 and he was awake and alert . He is fully oriented and answering all questions appropriately. He felt fine this morning and fine upon arriving at home. He denies dizziness or lightheadedness. He denies taking of his medications upon arrival home since he had received them in the hospital. Labs notable only for K 5.3, SCr 1.89 (1.76 this am). LA 0.8. Hb 9.8, was 10.6 yesterday. Mr Gómez is a 78yo M with DM2, HTN, HLD, COPD/chronic hypoxia on 3L O2, CKD3, HFpEF, CAD s/p recent NSTEMI on DAPT, and hx ARDS. Had 2 recent admissions here: 10/03-10/14/23 for pneumonia + STEMI, and 10/29-10/31/23 for CHF exacerbation. During the latter, he was diuresed 1900mL with furosemide and discharged home. He was home only 2 hr when found unresponsive and hypotensive at home. Hospital course by problem: syncope/hypotension - no arrhythmias on telemetry, orthostatics negative, VQ low-prob, no evidence of infection, EEG unremarkable. H+H remained stable; has some anemia of CKD3. TTE 10/02/23: 1. Normal LV ejection fraction of 60 65% with mild LVH with impaired relaxation filling pattern 2. Mild aortic regurgitation with calcific aortic and mitral valve changes noted 3. Upper limits of normal RV systolic pressure - Ultimately thought secondary to excess antihypertensive use. I resumed torsemide 20 mg bid, carvedilol at a reduced dose of 3.125 mg bid (previously 6.25 mg bid), and Imdur at a reduced dose of 15 mg daily (previously 120 mg daily). I discontinued amlodipine and lisionpril for now. chronic HFpEF CAD + recent NSTEMi HTN - Resumed torsemide + carvedilol 11/02 and reintroduced Imdur 11/03. Discontinued lisinopril and amlodipine. Continued Jardiance, dual antiplatelet therapy, and statin. CKD3 - SCr around baseline, monitor. Recheck BMP in 1 week. chronic hypoxic resp failure due to COPD - PCT low, bilateral lower lobe infiltrates on CXR likely residual from recent PNA. On 3L O2, baseline dose. DM2, recent A1c 7.7, with hypoglycemia - Lantus was decreased from 25 to 12 units last admission. Decreased further to 5 units given recurrence of hypoglycemia. - continue Jardiance He was seen by PT and again STR was strongly recommended; however the patient declined. He was discharged home with VNA services for home PT and BP monitoring and medication management. Time Attestation Discharge coordination time: Greater than 30 minutes Quality: Safe Use of Opioids Does Pt have an Active Cancer Diagnosis on the Problem List?: No Quality: Stroke Does the patient have a stroke diagnosis?: No Physical Exam Vital Signs: Vital Signs: Last Vital Signs Temp 97.7 F 11/04/23 11:19 Pulse 77 11/04/23 11:19 Resp 18 11/04/23 11:19 BP 145/64 H 11/04/23 11:19 Pulse Ox 97 11/04/23 11:19 O2 Del Method Nasal Cannula 11/04/23 11:19 O2 Flow Rate 4 11/04/23 11:19 Oxygen Flow Rate 10 10/31/23 14:48 BMI result Body Mass Index 30.7 Gen: in no acute distress HEENT: sclera anicteric, moist mucus membranes Neck: supple Lungs: clear to auscultation bilaterally Heart: regular rate and rhythm, no murmurs Abd: soft, non-tender, non-distended Ext: no LE edema Skin: warm/well-perfused Neuro: alert and oriented x3, no focal findings Psych: appropriate affect DS: Data Data Completed and Pending Completed studies during hospitalization [Text1]: Laboratory Results WBC 9.1 X10*3/uL (4.8-10.8) 11/03/23 06:07 RBC 3.48 X10*6/uL (4.60-5.80) L 11/03/23 06:07 Hgb 10.0 g/dl (14.0-18.0) L 11/03/23 06:07 Hct 32.2 % (42.0-52.0) L 11/03/23 06:07 MCV 92.5 fL (80.0-98.0) 11/03/23 06:07 MCH 28.7 pg (27.0-33.0) 11/03/23 06:07 MCHC 31.1 g/dl (31.0-36.0) 11/03/23 06:07 RDW 14.7 % (11.0-16.0) 11/03/23 06:07 Plt Count 156 X10*3/uL (160-400) L 11/03/23 06:07 MPV 11.7 fL (9.4-12.4) 11/03/23 06:07 Immature Gran % (Auto) 0.3 % (0.0-0.4) 10/31/23 17:09 Neut % (Auto) 75.0 % (45-73) H 10/31/23 17:09 Lymph % (Auto) 12.0 % (20-40) L 10/31/23 17:09 [place] % (Auto) 7.7 % (2-11) 10/31/23 17:09 Eos % (Auto) 4.6 % (0-4) H 10/31/23 17:09 Baso % (Auto) 0.4 % (0-2) 10/31/23 17:09 Lymph # (Auto) 1.4 X10*3/uL (1.2-4.9) 10/31/23 17:09 [place] # (Auto) 0.9 X10*3/uL (0.1-1.2) 10/31/23 17:09 Eos # (Auto) 0.6 X10*3/uL (0.0-0.4) H 10/31/23 17:09 Baso # (Auto) 0.1 X10*3/uL (0.0-0.2) 10/31/23 17:09 Abs Immat Gran (auto) 0.04 X10*3/uL (0.00-0.03) H 10/31/23 17:09 Absolute Neuts (auto) 9.0 x10*3/uL (2.0-8.3) H 10/31/23 17:09 Absolute Nucleated RBC 0.000 X10*3/uL (0.0-0.012) 11/03/23 06:07 Nucleated RBC % (auto) 0.0 /100WBC (0.0-0.2) 11/03/23 06:07 Absolute Retic 0.033 X10*6/uL (0.026-0.095) 11/01/23 06:06 Percent Retic 1.0 % (0.5-1.8) 11/01/23 06:06 Immature Retic Fraction 3.8 % (2.3-13.4) 11/01/23 06:06 Retic Hgb Equivalent 33.5 pg (30.0-35.0) 11/01/23 06:06 Hold Purple Top SEE NOTE 11/04/23 06:21 Sodium 136 mmol/L (135-145) 11/04/23 06:21 Potassium 4.8 mmol/L (3.3-5.1) 11/04/23 06:21 Chloride 102 mmol/L (96-108) 11/04/23 06:21 Carbon Dioxide 24 mmol/L (22-29) 11/04/23 06:21 Anion Gap 15 (12-20) 11/04/23 06:21 BUN 52 mg/dL (9-16) H 11/04/23 06:21 Creatinine 1.87 mg/dL (0.5-1.4) H 11/04/23 06:21 Estim Creat Clear Calc 31.8 11/04/23 06:21 Estimated GFR 35 11/04/23 06:21 POC Glucose 168 mg/dL (60-115) H 11/04/23 11:18 Random Glucose 77 mg/dL (60-115) 11/04/23 06:21 Lactic Acid 0.8 mmol/L (0.5-2.0) 10/31/23 17:08 Calcium 7.8 mg/dL (8.4-10.2) L 11/04/23 06:21 Magnesium 2.1 mg/dL (1.6-2.6) 11/03/23 06:07 Iron 50 mcg/dL (45-160) 11/01/23 06:06 TIBC 125 mcg/dL (228-428) L 11/01/23 06:06 % Saturation 40 % (15-50) 11/01/23 06:06 Unsat Iron Binding 75 ug/dL 11/01/23 06:06 Ferritin 428 ng/mL (20-250) H 11/01/23 06:06 Total Bilirubin 0.5 mg/dL (0.0-1.0) 10/31/23 17:08 Direct Bilirubin 0.3 mg/dL (0.0-0.5) 10/31/23 17:08 AST 17 U/L (5-37) 10/31/23 17:08 ALT 24 U/L (0-40) 10/31/23 17:08 Alkaline Phosphatase 60 U/L (39-117) 10/31/23 17:08 Ammonia 28 umol/L (13-55) 10/31/23 17:08 Lactate Dehydrogenase 265 U/L (118-273) 11/01/23 06:06 Troponin I High Sens 10.5 ng/L (<3.5-35.0) 10/31/23 19:57 C-Reactive Protein 2.11 mg/dL (< or = 0.50) H 10/31/23 17:08 B-Natriuretic Peptide 58 pg/mL (<100) 11/03/23 06:07 Total Protein 5.9 g/dL (6.5-8.0) L 10/31/23 17:08 Albumin 3.0 g/dL (3.5-5.0) L 10/31/23 17:08 Vitamin B12 667 pg/mL (200-900) 11/02/23 06:20 Folate 8.7 ng/mL (> or = 4.0) 11/02/23 06:20 Procalcitonin 0.12 ng/mL 10/31/23 17:08 Impressions Chest X-Ray 10/31/23 15:05 IMPRESSION: No change in left upper lobe infiltrate and prominent increase interstitial markings in bilateral lower lobes. No new infiltrates or worsening seen. Head CT 10/31/23 19:38 IMPRESSION: 1. No acute intracranial abnormality. Specifically, no CT evidence of acute intracranial hemorrhage, significant mass effect, hydrocephalus, or large territorial infarction. Mild to moderate global cerebral volume loss and mild chronic microangiopathy. 2. Empty sella. Pulmonary Perfusion Imaging 11/01/23 09:15 IMPRESSION: Low probability of pulmonary embolism. Stable abnormalities are present, most prominently in the left upper lobe, and these appear well matched to the infiltrate on the contemporaneous chest radiograph. Discharge Plan Discharge Anticipated Discharge Date/Time: 11/04/23 13:30 Patient Disposition: Home Health Service Discharge Diagnosis: syncope hypotension CHF diabetes mellitus with hypoglycemia chronic kidney disease stage 3 Referrals: [facility] [Outside] - 1 Day (RESUMPTION OF HOME PT AND CARE HOME) Rafi Power MD [Physician] - 1 Week Elisa Lyman MD [Primary Care Provider] - 1 Week Discharge Medications: New isosorbide mononitrate 30 mg Tablet Extended Release 24 Hr 15 mg PO DAILY Qty: 15 0RF Protocol: Hold for SBP< HOLD for SBP < : 90 Rx Instructions: Replaces prior dose of 120 mg daily carvedilol 3.125 mg Tablet 3.125 mg PO BID Qty: 60 0RF Protocol: Hold for SBP/HR < HOLD for SBP < : 90 HOLD for HR < : 60 Rx Instructions: Replaces prior dose of 6.25 mg bid insulin glargine [Lantus U-100 Insulin] 100 unit/mL Solution 5 unit subcut BEDTIME Qty: 10 0RF Rx Instructions: Replaces prior dose of 12 units Continued atorvastatin 80 mg tablet 80 mg PO DAILY clopidogrel 75 mg tablet 75 mg PO DAILY ferrous sulfate 325 mg (65 mg iron) tablet 325 mg PO DAILY aspirin 81 mg tablet,chewable 1 tab PO DAILY Incruse Ellipta 62.5 mcg/actuation blister with device 1 inh inhalation DAILY Jardiance 10 mg tablet 10 mg PO DAILY insulin aspart U-100 [Novolog FlexPen U-100 Insulin] 100 unit/mL (3 mL) insulin pen See Protocol subcut DIRECTED Protocol: Insulin Correction Scale Less than or equal to 110 ---- Give (units): 0 111 to 150 Give (units): 0 151 to 200 Give (units): 2 201 to 250 Give (units): 4 251 to 300 Give (units): 6 301 to 350 Give (units): 8 Greater than 350 Give (units): 10 Call MD if Blood Glucose > : 350 ipratropium-albuterol 0.5 mg-3 mg(2.5 mg base)/3 mL Solution For Nebulization 3 ml INHALATION Q6H PRN (Reason: Shortness Of Breath) nitroglycerin 0.4 mg Tablet, Sublingual 0.4 mg SUBLINGUAL Q5M PRN (Reason: Chest Pain) Rx Instructions: do not exceed 3 doses per episode nystatin 100,000 unit/gram Powder 1 appl TOPICAL BID PRN (Reason: Rash) PreserVision AREDS-2 250-90-40-1 mg capsule 1 cap PO BID torsemide 20 mg tablet 20 mg PO BID@0800,1500 Qty: 60 0RF Discontinued carvedilol 6.25 mg tablet 6.25 mg PO BID lisinopril 10 mg tablet 10 mg PO DAILY isosorbide mononitrate 60 mg tablet extended release 24 hr 120 mg PO DAILY amlodipine 2.5 mg Tablet 2.5 mg PO DAILY Qty: 30 0RF Protocol: Hold for SBP< HOLD for SBP < : 90 insulin glargine [Lantus Solostar U-100 Insulin] 100 unit/mL (3 mL) insulin pen 12 unit subcut QPM Qty: 15 0RF Discharge Orders: Discharge Order (Routine); Ordered 11/04/23 Ordered By: Loree Kwong Diet: Low salt diet Activity on Discharge: As tolerated Stand Alone Forms: Patient Portal Discharge page Other Ambulatory Orders: Basic Metabolic Panel (Routine) Timeframe: 1 Week Facility: [facility] - Location: Laboratory Ordered By: Loree Kwong Care Plan Goals: prevent hypoglycemia prevent hypotension manage CHF Health Concerns: syncope hypotension CHF diabetes mellitus with hypoglycemia chronic kidney disease stage 3 Plan of Treatment: short-term rehabilitation was recommended strongly, but you declined; so you are being discharged home with resumption of VNA services To prevent low blood pressure: - STOP amlodipine - STOP lisinopril - DECREASE isosorbide mononitrate from 120 mg to 30 mg daily - DECREASE carvedilol from 6.25 to 3.125 mg twice daily for CHF, continue torsemide 20 mg twice daily follow up with Cardiology at [facility] in 1-2 weeks Low-sodium diet: less than 2000 mg of sodium daily. Weigh yourself daily and call your doctor if your weight goes up by more than 3 lb/day or 5 lb/week. to prevent low blood sugar, DECREASE Lantus from 12 units to 5 units nightly recheck labs [basic metabolic panel] in 1 week Please follow up with your primary care doctor within 1 week. Return to the hospital if you experience recurrent or worsening symptoms. Assessment: See Discharge Summary.
== END 2023-11-04 15:18 | disposition home health service (06) | DRG 314 ==
LOC: HO.ED 17:50 → HO.EDOVER 19:08 → HO.IMC 11-01 12:32
PROVIDERS: Admitting Provider Family Medicine; Emergency Provider Internal Medicine; PCP Internal Medicine; Visit Provider Family Medicine
DX: I95.9 Hypotension, unspecified (principal); I50.33 Acute on chronic diastolic (congestive) heart failure; J96.21 Acute and chronic respiratory failure with hypoxia; I13.0 Hypertensive heart and chronic kidney disease with heart failure and stage 1 through stage 4 chronic kidney disease, or unspecified chronic kidney disease; J44.9 Chronic obstructive pulmonary disease, unspecified; E11.22 Type 2 diabetes mellitus with diabetic chronic kidney disease; I35.1 Nonrheumatic aortic (valve) insufficiency; N18.30 Chronic kidney disease, stage 3 unspecified; E78.5 Hyperlipidemia, unspecified; D63.1 Anemia in chronic kidney disease; E87.5 Hyperkalemia; Z99.81 Dependence on supplemental oxygen; Z87.891 Personal history of nicotine dependence; Z79.4 Long term (current) use of insulin; Z79.02 Long term (current) use of antithrombotics/antiplatelets; Z79.82 Long term (current) use of aspirin; Z79.84 Long term (current) use of oral hypoglycemic drugs; Z79.899 Other long term (current) drug therapy
CPT/HCPCS: 36415; 70450; 71045; 78580; 80048; 80076; 82140; 82607; 82728; 82746; 82947; 83540; 83605; 83615; 83735; 83880; 84145; 84484; 85025; 85027; 85045; 86140; 87040; 93005; 94640; 94664; 95816; 97162; 99285; A9540; J1644

== ENCOUNTER → 2023-10-31 14:54 | Outpatient (BNV) | payer OTHER, SELFPAY | PROVIDERS: Admitting Provider Family Medicine; Emergency Provider Internal Medicine; PCP Internal Medicine; Visit Provider Internal Medicine | DX: I95.9 Hypotension, unspecified (principal) | CPT/HCPCS: 93010 ==

== ENCOUNTER → 2023-10-31 18:51 | Outpatient (BNV) | payer OTHER, SELFPAY | PROVIDERS: Admitting Provider Family Medicine; Emergency Provider Internal Medicine; PCP Internal Medicine; Visit Provider Family Medicine | DX: I50.32 Chronic diastolic (congestive) heart failure (principal); E11.649 Type 2 diabetes mellitus with hypoglycemia without coma; N18.30 Chronic kidney disease, stage 3 unspecified; I95.9 Hypotension, unspecified; R55 Syncope and collapse; R42 Dizziness and giddiness | CPT/HCPCS: 99232; 99233; 99239 ==

== ENCOUNTER 2024-02-25 19:26 | Emergency (ER) | payer OTHER, SELFPAY ==
[2024-02-25 19:57] VITALS: PULSE 102; O2SAT 94
[2024-02-25 20:00] VITALS: BP 186/74; PULSE 92; RESP 20; TEMP 36.6; O2SAT 97
[2024-02-25 20:15] VITALS: BMI 31.9
--- NOTE | 2024-02-25 20:59 | PC.NURSE ---
pt resting quietly, awaiting provider evaluation. pt on 4l o2 at baseline- SpO2 fluctuating between 86-91 with prompting to breathe deeply. no active bleeding from nares at this time
--- NOTE | 2024-02-25 21:49 | ED.EPISTAXIS ---
History of Present Illness General Chief Complaint: Epistaxis Stated Complaint: epistaxis Time Seen by Provider: 02/25/24 21:32 History of Present Illness HPI Narrative: Patient is an 79-year-old male nosebleed starting about an 11:00 today it has been on and off. Baseline is on 4 L of oxygen has a history of COPD history of hypertension history of coronary artery disease status post stent. There has no fever there is no chills. There has no focal weakness. Patient's bleeding has stopped of on arrival in the emergency department. Related Data Home Medications Medication Instructions Recorded Confirmed aspirin 81 mg chewable tablet 1 tab PO DAILY 10/03/23 10/31/23 atorvastatin 80 mg tablet 80 mg PO DAILY 10/03/23 10/31/23 clopidogrel 75 mg tablet 75 mg PO DAILY 10/03/23 10/31/23 empagliflozin 10 mg tablet 10 mg PO DAILY 10/03/23 10/31/23 (Jardiance) ferrous sulfate 325 mg (65 mg 325 mg PO DAILY 10/03/23 10/31/23 iron) tablet insulin aspart U-100 100 unit/mL See Protocol subcut DIRECTED 10/03/23 10/31/23 (3 mL) subcutaneous pen (Novolog FlexPen U-100 Insulin aspart) umeclidinium 62.5 mcg/actuation 1 inh inhalation DAILY 10/03/23 10/31/23 blister powder for inhalation (Incruse Ellipta) ipratropium 0.5 mg-albuterol 3 mg 3 ml inhalation Q6H PRN Shortness 10/29/23 10/31/23 (2.5 mg base)/3 mL nebulization Of Breath soln nitroglycerin 0.4 mg sublingual 0.4 mg sublingual Q5M PRN Chest 10/29/23 10/31/23 tablet Pain nystatin 100,000 unit/gram topical 1 appl topical BID PRN Rash 10/29/23 10/31/23 powder vit C 250 mg-vit E 90 mg-zinc 40 1 cap PO BID 10/29/23 10/31/23 mg-copper 1 [id number] capsule (PreserVision AREDS-2) Previous Rx's Medication Instructions Recorded torsemide 20 mg tablet 20 mg PO BID@0800,1500 #60 tabs 10/31/23 carvedilol 3.125 mg tablet 3.125 mg PO BID #60 tabs 11/04/23 insulin glargine 100 unit/mL 5 unit (0.05 mL) subcut BEDTIME 11/04/23 subcutaneous solution (Lantus #10 mL U-100 Insulin) isosorbide mononitrate 30 mg 15 mg PO DAILY #15 tabs 11/04/23 tablet,extended release 24 hr Allergies Allergy/AdvReac Type Severity Reaction Status Date / Time No Known Allergies Allergy Verified 10/31/23 14:53 Review of Systems Review of Systems: Positive nosebleed Yes all other systems are reviewed and are negative [facility] Past Medical History Attestation statement: The following information was validated with the patient. Medical History Acute and chronic respiratory failure with hypoxia Acute on chronic heart failure with preserved ejection fraction (HFpEF) Pneumonia Acute non-ST elevation myocardial infarction (NSTEMI) Adult respiratory distress syndrome Hyperlipidemia Hypertension Diabetes mellitus, type 2 Chronic respiratory failure with hypoxia COPD (chronic obstructive pulmonary disease) CKD (chronic kidney disease) CHF (congestive heart failure) Coronary artery disease Surgical History S/P coronary artery stent placement Family History Family History Other Cancer Social History Social History Household Members: Spouse and Children Housing: House Do you presently have visiting nurse or other home services: No Alcohol intake: never Patient Tobacco Use Status: Former Tobacco user Smoked in Last 30 Days: No Second Hand Smoke Exposure: No Advance Directives: No Advance Directives Information Provided: No service: No Physical Exam Vital Signs: Vital Signs: Last Vital Signs Temp 96.9 F 02/25/24 22:18 Pulse 83 02/25/24 22:18 Resp 18 02/25/24 22:18 BP 183/69 H 02/25/24 22:18 Pulse Ox 93 02/25/24 22:18 O2 Del Method Room Air, Nasal C annula 02/25/24 22:18 O2 Flow Rate 4 02/25/24 22:18 BMI result Body Mass Index 31.9 Appearance: Alert. Oriented X3. No acute distress. Eyes: Pupils equal, round and reactive to light. ENT: Pharynx normal. Positive dried blood noted bilateral nares Neck: Normal inspection. Neck supple. No lymph nodes noted. No crepitus CVS: Normal heart rate and rhythm. Pulses normal. Normal S1 and S2 Respiratory: Diminished breath sounds bilaterally Abdomen: Soft and nontender. No rigidity. No distention. good BS x4 Skin: Skin warm and dry. Normal skin color. Normal skin turgor. Extremities: No lower extremity edema. Neurovascular intact to all extremities. No Lacerations. No Rash Neuro: Oriented X 3. No motor deficit. No sensory deficit. Moving all extermities. No slurred speech Medical Decision Making Medical Decision Making [facility] Narrative: Patient well-appearing. Bleeding has stopped on my arrival. Hemoglobin is 12 today baseline is 10. Kidney function is normal. Patient is in no duress. Given reassurance. Patient to be discharged home Differential Diagnosis Differential Diagnoses: The differential diagnosis associated with the presentation includes Anterior nosebleed, posterior nosebleed Admission/Observation Consideration of admission/observation: Escalation of care including admission/observation considered Lab Data [facility] Lab Attestation statement: I reviewed the patient's lab results. 02/25/24 22:00 02/25/24 22:00 Labs: Lab Results 02/25/24 Range/Units 22:00 WBC 12.9 H (4.8-10.8) X10*3/uL RBC 4.06 L (4.60-5.80) X10*6/uL Hgb 12.0 L (14.0-18.0) g/dl Hct 37.0 L (42.0-52.0) % MCV 91.1 (80.0-98.0) fL MCH 29.6 (27.0-33.0) pg MCHC 32.4 (31.0-36.0) g/dl RDW 12.8 (11.0-16.0) % Plt Count 245 D (160-400) X10*3/uL MPV 10.5 (9.4-12.4) fL Immature Gran % (Auto) 0.5 H (0.0-0.4) % Neut % (Auto) 67.6 (45-73) % Lymph % (Auto) 20.2 (20-40) % [place] % (Auto) 6.7 (2-11) % Eos % (Auto) 4.2 H (0-4) % Baso % (Auto) 0.8 (0-2) % Lymph # (Auto) 2.6 (1.2-4.9) X10*3/uL [place] # (Auto) 0.9 (0.1-1.2) X10*3/uL Eos # (Auto) 0.5 H (0.0-0.4) X10*3/uL Baso # (Auto) 0.1 (0.0-0.2) X10*3/uL Abs Immat Gran (auto) 0.07 H (0.00-0.03) X10*3/uL Absolute Neuts (auto) 8.7 H (2.0-8.3) x10*3/uL Absolute Nucleated RBC 0.000 (0.0-0.012) X10*3/uL Nucleated RBC % (auto) 0.0 (0.0-0.2) /100WBC PT 14.4 H (11.1-13.3) SEC INR 1.2 H (0.9-1.1) Sodium 140 (135-145) mmol/L Potassium 4.5 (3.3-5.1) mmol/L Chloride 111 H (96-108) mmol/L Carbon Dioxide 22 (22-29) mmol/L Anion Gap 12 (12-20) BUN 61 H (9-16) mg/dL Creatinine 1.61 H (0.5-1.4) mg/dL Estim Creat Clear Calc 33.3 Estimated GFR 41 Random Glucose 214 H (60-115) mg/dL Calcium 9.2 D (8.4-10.2) mg/dL External Record Review External record reviewed: Inpatient record Chronic Conditions History of diabetes history of being on Plavix Social Determinants Patient?s care significantly limited by Social Determinants of Health including: Problems related to primary support group Discharge Plan Discharge Clinical Impression: Acute anterior epistaxis Patient Disposition: Home, Self-Care Instructions: Nosebleed (ED) Prescriptions: No Action atorvastatin 80 mg tablet 80 mg PO DAILY clopidogrel 75 mg tablet 75 mg PO DAILY ferrous sulfate 325 mg (65 mg iron) tablet 325 mg PO DAILY aspirin 81 mg tablet,chewable 1 tab PO DAILY Incruse Ellipta 62.5 mcg/actuation blister with device 1 inh inhalation DAILY Jardiance 10 mg tablet 10 mg PO DAILY insulin aspart U-100 [Novolog FlexPen U-100 Insulin] 100 unit/mL (3 mL) insulin pen See Protocol subcut DIRECTED Protocol: Insulin Correction Scale Less than or equal to 110 ---- Give (units): 0 111 to 150 Give (units): 0 151 to 200 Give (units): 2 201 to 250 Give (units): 4 251 to 300 Give (units): 6 301 to 350 Give (units): 8 Greater than 350 Give (units): 10 Call MD if Blood Glucose > : 350 isosorbide mononitrate 30 mg Tablet Extended Release 24 Hr 15 mg PO DAILY Qty: 15 0RF Protocol: Hold for SBP< HOLD for SBP < : 90 Rx Instructions: Replaces prior dose of 120 mg daily carvedilol 3.125 mg Tablet 3.125 mg PO BID Qty: 60 0RF Protocol: Hold for SBP/HR < HOLD for SBP < : 90 HOLD for HR < : 60 Rx Instructions: Replaces prior dose of 6.25 mg bid insulin glargine [Lantus U-100 Insulin] 100 unit/mL Solution 5 unit subcut BEDTIME Qty: 10 0RF Rx Instructions: Replaces prior dose of 12 units ipratropium-albuterol 0.5 mg-3 mg(2.5 mg base)/3 mL Solution For Nebulization 3 ml INHALATION Q6H PRN (Reason: Shortness Of Breath) nitroglycerin 0.4 mg Tablet, Sublingual 0.4 mg SUBLINGUAL Q5M PRN (Reason: Chest Pain) Rx Instructions: do not exceed 3 doses per episode nystatin 100,000 unit/gram Powder 1 appl TOPICAL BID PRN (Reason: Rash) PreserVision AREDS-2 250-90-40-1 mg capsule 1 cap PO BID torsemide 20 mg tablet 20 mg PO BID@0800,1500 Qty: 60 0RF Referrals: Lenard Roberts [Physician] - 02/27/24
[2024-02-25 22:09] LABS: MANUAL DIFF FLAG NO
--- NOTE | 2024-02-25 22:09 | PC.NURSE ---
labs obtained, no bleeding from nose since arrival in dept
[2024-02-25 22:10] LABS: Basophils Absolute Auto 0.1 X10*3/uL (0.0-0.2); Basophils Percent Auto 0.8 % (0-2); Eosinophils Absolute Auto 0.5 X10*3/uL (0.0-0.4); Eosinophils Percent Auto 4.2 % (0-4); Imm Gran Abs Auto 0.07 X10*3/uL (0.00-0.03); Imm Gran Pct Auto 0.5 % (0.0-0.4); Lymphocytes Absolute Auto 2.6 X10*3/uL (1.2-4.9); Lymphocytes Percent Auto 20.2 % (20-40); Mean Corpuscular HGB Conc 32.4 g/dl (31.0-36.0); Mean Corpuscular Hemoglobin 29.6 pg (27.0-33.0); Mean Corpuscular Volume 91.1 fL (80.0-98.0); Mean Platelet Volume 10.5 fL (9.4-12.4); Monocytes Absolute Auto 0.9 X10*3/uL (0.1-1.2); Monocytes Percent Auto 6.7 % (2-11); Neutrophils Absolute Auto 8.7 x10*3/uL (2.0-8.3); Neutrophils Percent Auto 67.6 % (45-73); Platelet Count 245 X10*3/uL (160-400); Red Blood Count 4.06 X10*6/uL (4.60-5.80); Red Cell Distribution Width 12.8 % (11.0-16.0); White Blood Count 12.9 X10*3/uL (4.8-10.8)
[2024-02-25 22:18] VITALS: BP 183/69; PULSE 83; RESP 18; TEMP 36.1; O2SAT 93
[2024-02-25 22:18] LABS: INTERNATIONAL NORM RATIO 1.2 (0.9-1.1); Prothrombin Time 14.4 SEC (11.1-13.3)
[2024-02-25 22:24] LABS: Anion Gap 12 (12-20); Blood Urea Nitrogen 61 mg/dL (9-16); Calcium 9.2 mg/dL (8.4-10.2); Carbon Dioxide 22 mmol/L (22-29); Chloride 111 mmol/L (96-108); Creatinine Clr Calc Pharmacy 33.3; Estimated Glomerular Filt Rate 41; Glucose Random 214 mg/dL (60-115); Potassium 4.5 mmol/L (3.3-5.1); Sodium 140 mmol/L (135-145)
[2024-02-25 22:40] VITALS: BP 183/69; PULSE 83; RESP 18; TEMP 36.1; O2SAT 93
== END 2024-02-25 22:50 | disposition home or self-care (01) ==
PROVIDERS: Emergency Provider Emergency Medicine Emergency Medical Services
DX: R04.0 Epistaxis (principal); E11.22 Type 2 diabetes mellitus with diabetic chronic kidney disease; I13.0 Hypertensive heart and chronic kidney disease with heart failure and stage 1 through stage 4 chronic kidney disease, or unspecified chronic kidney disease; N18.9 Chronic kidney disease, unspecified; I50.32 Chronic diastolic (congestive) heart failure; I25.10 Atherosclerotic heart disease of native coronary artery without angina pectoris; J44.9 Chronic obstructive pulmonary disease, unspecified; Z99.81 Dependence on supplemental oxygen; I25.2 Old myocardial infarction
CPT/HCPCS: 36415; 80048; 85025; 85610; 99283; 99284

== ENCOUNTER 2024-11-05 15:23 | Inpatient (IN) | payer OTHER, SELFPAY ==
[2024-11-05] VITALS (7 sets, daily range): BP systolic 114–132; BP diastolic 36–56; PULSE 86–104; RESP 17–23; TEMP 36.3–36.7; O2SAT 86–95; BMI 32.6
--- NOTE | ~2024-11-05 | XR_ITS ---
EXAMINATION: XR CHEST CLINICAL INFORMATION: chf follow up COMPARISON: 11/07/2024 TECHNIQUE: Frontal view of the chest was obtained. FINDINGS: Left perihilar and peripheral upper lobe opacities appear slightly improved although incompletely resolved. No definite effusion. Stable cardiomediastinal silhouette. XR/XR chest 1V IMPRESSION: Left perihilar and peripheral upper lobe opacities appear slightly improved although incompletely resolved. Electronically signed by: Josué De Jesus MD 11/10/2024 06:33 PM [facility]
--- NOTE | ~2024-11-05 | XR_ITS ---
EXAMINATION: XR CHEST CLINICAL INFORMATION: Evaluate for ?ARDS COMPARISON: 11/05/2024, 4:43 PM TECHNIQUE: Frontal view of the chest was obtained. FINDINGS: Diffuse interstitial and airspace opacities have improved, particularly at the lung bases due to improved inspiration. Persistent left midlung and peripheral upper lobe opacities. Stable cardiomediastinal silhouette. XR/XR chest 1V IMPRESSION: Improved lung aeration with persistent left midlung and peripheral upper lobe opacities. No new findings. Electronically signed by: Josué De Jesus MD 11/05/2024 10:18 PM [facility]
--- NOTE | ~2024-11-05 | XR_ITS ---
EXAMINATION: XR CHEST CLINICAL INFORMATION: sob, copd, hypoxic COMPARISON: Chest radiograph dated 10/31/2023. TECHNIQUE: Frontal view of the chest was obtained. FINDINGS: The heart is normal in size. There is calcific atherosclerotic disease of the aorta. There are low lung volumes. There is enlargement of the proximal pulmonary vasculature. There is a MEMs device overlying the right hilum. There are patchy infiltrates within the left lower lobe and to a lesser extent left upper lobe. There is a right lower lobe infiltrate. There is no large pleural effusion. No pneumothorax. No acute osseous abnormality. XR/XR chest 1V IMPRESSION: There are patchy infiltrates within the left lower and left upper lobes. Infection is suspected. There may be a right lower lobe infiltrate as well. Electronically signed by: Gerardo Dowd DO 11/05/2024 06:26 PM [facility]
--- NOTE | ~2024-11-05 | XR_ITS ---
EXAMINATION: XR CHEST CLINICAL INFORMATION: Hypoxia follow up COMPARISON: Chest 11/05/2024. TECHNIQUE: Frontal view of the chest was obtained. FINDINGS: The lungs are well-expanded with patchy opacity seen in the left upper and middle lobe. Patchy opacities seen previously in both lung bases have improved. Heart size is enlarged. Pulmonary vascularity is normal. There is mild AC joint spurring. No lytic or sclerotic process seen. XR/XR chest 1V IMPRESSION: Diffuse patchy opacity in left upper and middle lobe. Electronically signed by: Jarod Evans MD 11/07/2024 08:38 AM EST
--- NOTE | 2024-11-05 15:44 | ECG_ITS ---
Test Reason : SOB Blood Pressure : / mmHG Vent. Rate : 093 BPM Atrial Rate : 093 BPM P-R Int : 176 ms QRS Dur : 094 ms QT Int : 372 ms P-R-T Axes : 041 036 066 degrees QTc Int : 462 ms Normal sinus rhythm Nonspecific ST abnormality Abnormal ECG When compared with ECG of 31-OCT-2023 14:54, No significant change was found Referred By: Meena Daon Electronically Signed By:GE MADDOX MD
--- NOTE | 2024-11-05 15:49 | ED_ITS ---
HPI - SOB/Dyspnea General Chief Complaint: Dyspnea Stated Complaint: SOB poor PO Source: patient and EMS Mode of arrival: EMS Limitations: no limitations History of Present Illness ED Provider: Dr. Meena Doan HPI Narrative: Patient comes to the emergency room by ambulance from home. According to the patient, for the last 2-3 days he has been complaining of shortness of breath. Patient states that for about a month ago, he started noticing that when he walks he becomes significantly short of breath even when he walks with his walker. Today, patient states that he has his family to give him an updraft which I did but did not help him to breathe more comfortably. Patient states that usually he uses 3 L of oxygen at baseline for COPD. EMS reports that they had to increase his O2 to 6 L to keep his O2 saturation in the high 80s. Patient states that this time he is feeling much better, although he did not receive any treatment per EMS other than increasing his O2. Patient states that he has not noticed that his legs having gotten swollen, denies gaining water weight. Denies any fever or chills. Related Data Home Medications ?Medication ?Instructions ?Recorded ?Confirmed aspirin 81 mg chewable tablet 1 tab PO DAILY 10/03/23 10/31/23 atorvastatin 80 mg tablet 80 mg PO DAILY 10/03/23 10/31/23 clopidogrel 75 mg tablet 75 mg PO DAILY 10/03/23 10/31/23 empagliflozin 10 mg tablet 10 mg PO DAILY 10/03/23 10/31/23 (Jardiance) ferrous sulfate 325 mg (65 mg 325 mg PO DAILY 10/03/23 10/31/23 iron) tablet insulin aspart U-100 100 unit/mL See Protocol subcut DIRECTED 10/03/23 10/31/23 (3 mL) subcutaneous pen (Novolog FlexPen U-100 Insulin aspart) umeclidinium 62.5 mcg/actuation 1 inh inhalation DAILY 10/03/23 10/31/23 blister powder for inhalation (Incruse Ellipta) ipratropium 0.5 mg-albuterol 3 mg 3 ml inhalation Q6H PRN Shortness 10/29/23 10/31/23 (2.5 mg base)/3 mL nebulization Of Breath soln nitroglycerin 0.4 mg sublingual 0.4 mg sublingual Q5M PRN Chest 10/29/23 10/31/23 tablet Pain nystatin 100,000 unit/gram topical 1 appl topical BID PRN Rash 10/29/23 10/31/23 powder vit C 250 mg-vit E 90 mg-zinc 40 1 cap PO BID 10/29/23 10/31/23 mg-copper 1 [id number] capsule (PreserVision AREDS-2) Previous Rx's ?Medication ?Instructions ?Recorded torsemide 20 mg tablet 20 mg PO BID@0800,1500 #60 tabs 10/31/23 carvedilol 3.125 mg tablet 3.125 mg PO BID #60 tabs 11/04/23 insulin glargine 100 unit/mL 5 unit (0.05 mL) subcut BEDTIME 11/04/23 subcutaneous solution (Lantus #10 mL U-100 Insulin) isosorbide mononitrate 30 mg 15 mg PO DAILY #15 tabs 11/04/23 tablet,extended release 24 hr Allergies Allergy/AdvReac Type Severity Reaction Status Date / Time No Known Allergies Allergy Verified 11/05/24 15:49 Review of Systems 2 Review of Systems: Constitutional : No Weight loss, No Fever, No Chills, No Night Sweats, No Fatigue, No Malaise ENT/Mouth : No Hearing loss, No Ear Pain, No Nasal Congestion, No Sinus Pain, No Hoarseness, No sore throat, No Rhinorrhea, No Swallowing Difficulty Eyes: No Eye Pain, No Swelling, No Redness, No Foreign Body, No Discharge, No Vision Changes Cardiovascular : No Chest Pain, No SOB, No Dyspnea on Exertion, No Orthopnea, No Edema, No Palpitations Respiratory : Complaining of mild cough, shortness of breath, wheezing earlier today Gastrointestinal : No Nausea, No Vomiting, No Diarrhea, No Constipation, No abdominal Pain, No Hematochezia, No Melena Genitourinary : no irregular bleeding, No Dysuria, No Urinary Frequency, No Hematuria, No Urinary Incontinence, No Urgency, No Flank Pain, No Urinary Flow Changes, No Hesitancy Musculoskeletal : No joint pain, No Myalgias, No Joint Swelling Skin : No Skin Lesions, No rash Neuro : No Weakness, No Numbness, No Paresthesias, No Loss of Consciousness, No Dizziness, No Headache Psych : No Anxiety/Panic, No Depression, No SI/HI/AH/VH, No Social Issues, Heme/Lymph: No Bruising, No Bleeding,No Lymphadenopathy Endocrine : No Polyuria, No Polydipsia, No Temperature Intolerance [facility], [facility] Past Medical History Medical History Acute and chronic respiratory failure with hypoxia Acute on chronic heart failure with preserved ejection fraction (HFpEF) Pneumonia Acute non-ST elevation myocardial infarction (NSTEMI) Adult respiratory distress syndrome Hyperlipidemia Hypertension Diabetes mellitus, type 2 Chronic respiratory failure with hypoxia COPD (chronic obstructive pulmonary disease) CKD (chronic kidney disease) CHF (congestive heart failure) Coronary artery disease Surgical History S/P coronary artery stent placement Family History Family History Other Cancer Social History Social History Household Members: Spouse and Children Housing: House Do you presently have visiting nurse or other home services: No Alcohol intake: never Patient Tobacco Use Status: Former Tobacco user Smoked in Last 30 Days: No Second Hand Smoke Exposure: No Use of substances other than those prescribed or required for medical reasons: No Advance Directives: No Advance Directives Information Provided: Yes Do you have a plan to hurt others: No Plan service: No Physical Exam 2 Vital Signs: Vital Signs: Last Vital Signs Temp 98.1 F 11/05/24 15:50 Pulse 98 11/05/24 16:06 Resp 17 11/05/24 16:06 BP 119/39 L 11/05/24 15:55 Pulse Ox 90 L 11/05/24 15:55 O2 Del Method Oxymask 11/05/24 15:55 O2 Flow Rate 14 11/05/24 15:55 Oxygen Flow Rate 10 11/05/24 15:45 BMI result Body Mass Index 32.6 Const: Other: Appearance: Alert. Oriented X3. No acute distress. Eyes: Pupils equal, round and reactive to light. ENT: Pharynx normal. Neck: Normal inspection. Neck supple. No lymph nodes noted. No crepitus CVS: Normal heart rate and rhythm. Pulses normal. Normal S1 and S2 Respiratory: Seems to be breathing comfortably. Bilateral rales and crackles, no wheezing at this time. Patient's oxygen saturation 85% on 6 L, improved to 90% on 10 L on a an OxyMask Abdomen: Soft and nontender. No rigidity. No distention. Skin: Skin warm and dry. Normal skin color. Normal skin turgor. Extremities: No lower extremity edema. No Lacerations. No Rash Neuro: Oriented X 3. No motor deficit. No sensory deficit. Moving all extremities. No slurred speech. CN 2 through 12 grossly intact Psych: calm, cooperative, normal affect Course Course Course Narrative: -patient's oxygen saturation is currently 90% on 10 L on an OxyMask. Patient is not tachypneic, breathing comfortably. Patient receiving empirically IV fluids, azithromycin, ceftriaxone -all of patient's labs and imaging pending Medications Administered Discontinued Medications Generic Name Dose Route Start Last Admin Trade Name Freq PRN Reason Stop Dose Admin Ceftriaxone Sodium 1 gm 11/05/24 15:46 11/05/24 16:08 Ceftriaxone Sodium 1 Gm Vial IVPUSH 11/05/24 15:47 1 gm ONCE ONE Administration Albuterol Sulfate 2.5 mg/ 0 mg 11/05/24 16:02 11/05/24 16:16 Albuterol/Ipratropium 3 ml INHALE 11/05/24 16:03 5 dose ONCE ONE Administration Sodium Chloride 1,000 mls @ 999 mls/hr 11/05/24 15:44 11/05/24 15:56 Ns IVCONT 11/05/24 16:44 999 mls/hr .Q1H1M ONE Administration Azithromycin 500 mg/ Sodium 250 mls @ 125 mls/hr 11/05/24 15:46 11/05/24 16:10 Chloride IV 11/05/24 17:45 125 mls/hr ONCE ONE Administration Methylprednisolone Sodium Succinate 125 mg 11/05/24 15:48 11/05/24 16:04 Methylprednisolone Sod Succ 125 Mg/2 Ml Vial IVPUSH 11/05/24 15:49 125 mg ONCE ONE Administration Medical Decision Making Medical Decision Making [facility] Narrative: My interpretation of labs: Patient's white blood cell count 16.6, hemoglobin and hematocrit and platelets at baseline, chemistry shows as decreased bicarb at 16. Patient's BUN 62, creatinine 2.52 which is above patient's baseline of 1.6. BNP 275 which patient has had before. -my interpretation of chest x-ray: Bilateral pneumonia -patient has not had any episodes of hypotension, no fever. -patient is on an OxyMask at 10 L still saturating in the low 90s -overall, patient is awake, alert, states that he feels much better. Sepsis is not suspected. -I discussed the patient with the medicine team, Dr. Dasilva, patient being admitted Differential Diagnosis Differential Diagnoses: The differential diagnosis associated with the presentation includes (Pneumonia, chronic lung disease exacerbation, influenza, RSV, COVID) Admission/Observation Consideration of admission/observation: Escalation of care including admission/observation considered Consult Healthcare Provider Management of the patient was discussed with: Hospitalist Lab Data MDM Lab Attestation statement: I reviewed the patient's lab results. 11/05/24 16:06 11/05/24 16:06 Labs: Lab Results 11/05/24 11/05/24 11/05/24 Range/Units 16:06 16:14 18:19 WBC 16.6 H (4.8-10.8) X10*3/uL RBC 4.28 L (4.60-5.80) X10*6/uL Hgb 12.4 L (14.0-18.0) g/dl Hct 38.7 L (42.0-52.0) % MCV 90.4 (80.0-98.0) fL MCH 29.0 (27.0-33.0) pg MCHC 32.0 (31.0-36.0) g/dl RDW 15.4 (11.0-16.0) % Plt Count 255 (160-400) X10*3/uL MPV 11.0 (9.4-12.4) fL Immature Gran % (Auto) 0.6 H (0.0-0.4) % Neut % (Auto) 82.7 H (45-73) % Lymph % (Auto) 7.8 L (20-40) % [place] % (Auto) 8.3 (2-11) % Eos % (Auto) 0.2 (0-4) % Baso % (Auto) 0.4 (0-2) % Lymph # (Auto) 1.3 (1.2-4.9) X10*3/uL [place] # (Auto) 1.4 H (0.1-1.2) X10*3/uL Eos # (Auto) 0.0 (0.0-0.4) X10*3/uL Baso # (Auto) 0.1 (0.0-0.2) X10*3/uL Abs Immat Gran (auto) 0.10 H (0.00-0.03) X10*3/uL Absolute Neuts (auto) 13.7 H (2.0-8.3) x10*3/uL Absolute Nucleated RBC 0.000 (0.0-0.012) X10*3/uL Nucleated RBC % (auto) 0.0 (0.0-0.2) /100WBC PT 15.9 H (10.9-12.4) SEC INR 1.4 H (0.9-1.1) VBG pH 7.29 L (7.32-7.43) VBG pCO2 29 mmHg VBG pO2 50 mmHg VBG HCO3 14 L (22-26) mmol/L VBG O2 Saturation 75.0 % VBG Base Excess -10.2 mmol/L Sodium 135 (135-145) mmol/L Potassium 5.0 (3.3-5.1) mmol/L Chloride 107 (96-108) mmol/L Carbon Dioxide 16 L (22-29) mmol/L Anion Gap 17 (12-20) BUN 62 H (9-16) mg/dL Creatinine 2.52 H (0.5-1.4) mg/dL Estim Creat Clear Calc 21.5 Estimated GFR 25 POC Glucose 174 H (60-115) mg/dL Random Glucose 216 H (60-115) mg/dL Lactic Acid 1.9 (0.5-2.0) mmol/L Calcium 9.0 (8.4-10.2) mg/dL Total Bilirubin 0.8 (0.0-1.0) mg/dL Direct Bilirubin 0.4 (0.0-0.5) mg/dL AST 27 (5-37) U/L ALT 14 (0-40) U/L Alkaline Phosphatase 92 (39-117) U/L Troponin I High Sens 27.1 D (<3.5-35.0) ng/L B-Natriuretic Peptide 275 H (<100) pg/mL Total Protein 7.4 (6.5-8.0) g/dL Albumin 3.1 L (3.5-5.0) g/dL Independent Interpretation I performed an independent interpretation of an: Plain X-Ray Radiology Impression Discussion of test interpretation with radiology: I have reviewed the radiologist's reading. Radiologist Impression: The heart is normal in size. There is calcific atherosclerotic disease of the aorta. There are low lung volumes. There is enlargement of the proximal pulmonary vasculature. There is a MEMs device overlying the right hilum. There are patchy infiltrates within the left lower lobe and to a lesser extent left upper lobe. There is a right lower lobe infiltrate. There is no large pleural effusion. No pneumothorax. No acute osseous abnormality. IMPRESSION: There are patchy infiltrates within the left lower and left upper lobes. Infection is suspected. There may be a right lower lobe infiltrate as well. Independent Historian Clinical information obtained from an independent historian. History obtained from or confirmed by: EMS External Record Review External record reviewed: Inpatient record Critical Care Time Critical Care Time Critical Care Time: Yes Total Critical Care Time: 60 Attestation: I have personally provided critical care time. Time includes review of lab data, radiology results, discussion with consultants, and monitoring for potential decompensation. Intervention performed as documented. Discharge Plan Discharge Clinical Impression: Pneumonia, Acute kidney injury superimposed on CKD Patient Disposition: Admitted As Inpatient Prescriptions: No Action atorvastatin 80 mg tablet 80 mg PO DAILY clopidogrel 75 mg tablet 75 mg PO DAILY ferrous sulfate 325 mg (65 mg iron) tablet 325 mg PO DAILY aspirin 81 mg tablet,chewable 1 tab PO DAILY Incruse Ellipta 62.5 mcg/actuation blister with device 1 inh inhalation DAILY Jardiance 10 mg tablet 10 mg PO DAILY insulin aspart U-100 [Novolog FlexPen U-100 Insulin] 100 unit/mL (3 mL) insulin pen See Protocol subcut DIRECTED Protocol: Insulin Correction Scale Less than or equal to 110 ---- Give (units): 0 111 to 150 Give (units): 0 151 to 200 Give (units): 2 201 to 250 Give (units): 4 251 to 300 Give (units): 6 301 to 350 Give (units): 8 Greater than 350 Give (units): 10 Call MD if Blood Glucose > : 350 isosorbide mononitrate 30 mg Tablet Extended Release 24 Hr 15 mg PO DAILY Qty: 15 0RF Protocol: Hold for SBP< HOLD for SBP < : 90 Rx Instructions: Replaces prior dose of 120 mg daily carvedilol 3.125 mg Tablet 3.125 mg PO BID Qty: 60 0RF Protocol: Hold for SBP/HR < HOLD for SBP < : 90 HOLD for HR < : 60 Rx Instructions: Replaces prior dose of 6.25 mg bid insulin glargine [Lantus U-100 Insulin] 100 unit/mL Solution 5 unit subcut BEDTIME Qty: 10 0RF Rx Instructions: Replaces prior dose of 12 units ipratropium-albuterol 0.5 mg-3 mg(2.5 mg base)/3 mL Solution For Nebulization 3 ml INHALATION Q6H PRN (Reason: Shortness Of Breath) nitroglycerin 0.4 mg Tablet, Sublingual 0.4 mg SUBLINGUAL Q5M PRN (Reason: Chest Pain) Rx Instructions: do not exceed 3 doses per episode nystatin 100,000 unit/gram Powder 1 appl TOPICAL BID PRN (Reason: Rash) PreserVision AREDS-2 250-90-40-1 mg capsule 1 cap PO BID torsemide 20 mg tablet 20 mg PO BID@0800,1500 Qty: 60 0RF Print Language: Luxembourg[place]
[2024-11-05] MEDS: 0.9 % Sodium Chloride 1,000 ML 999 ML IVCONT (15:56)
[2024-11-05] MEDS: methylPREDNISolone Sod Succ 125 MG/2 ML VIAL IVPUSH (16:04)
[2024-11-05] MEDS: cefTRIAXone sodium 1 GM VIAL IVPUSH (16:08)
[2024-11-05] MEDS: Azithromycin 500 MG in 0.9 % Sodium Chloride 250 ML 125 MG IV (16:10)
[2024-11-05 16:15] LABS: MANUAL DIFF FLAG NO
[2024-11-05] MEDS: Albuterol Sulfate 2.5 MG, Albuterol/Iprat 2.5/0.5MG 3 ML 3 ML INHALE (16:16)
[2024-11-05 16:17] LABS: Venous Blood Gas Refer to POC result
[2024-11-05 16:17] LABS: VBG Base Excess -10.2 mmol/L; VBG HCO3 14 mmol/L (22-26); VBG pCO2 29 mmHg; VBG pH 7.29 (7.32-7.43); VBG pO2 50 mmHg
[2024-11-05 16:18] LABS: Basophils Absolute Auto 0.1 X10*3/uL (0.0-0.2); Basophils Percent Auto 0.4 % (0-2); Eosinophils Percent Auto 0.2 % (0-4); Hematocrit 38.7 % (42.0-52.0); Hemoglobin 12.4 g/dl (14.0-18.0); Imm Gran Pct Auto 0.6 % (0.0-0.4); Lymphocytes Absolute Auto 1.3 X10*3/uL (1.2-4.9); Lymphocytes Percent Auto 7.8 % (20-40); Mean Corpuscular Volume 90.4 fL (80.0-98.0); Monocytes Absolute Auto 1.4 X10*3/uL (0.1-1.2); Monocytes Percent Auto 8.3 % (2-11); Neutrophils Absolute Auto 13.7 x10*3/uL (2.0-8.3); Neutrophils Percent Auto 82.7 % (45-73); Platelet Count 255 X10*3/uL (160-400); Red Blood Count 4.28 X10*6/uL (4.60-5.80); Red Cell Distribution Width 15.4 % (11.0-16.0); White Blood Count 16.6 X10*3/uL (4.8-10.8)
[2024-11-05 16:28] LABS: INTERNATIONAL NORM RATIO 1.4 (0.9-1.1); Prothrombin Time 15.9 SEC (10.9-12.4)
[2024-11-05 16:32] LABS: Alanine Aminotransferase 14 U/L (0-40); Albumin Level 3.1 g/dL (3.5-5.0); Alkaline Phosphatase 92 U/L (39-117); Anion Gap 17 (12-20); Aspartate Amino Transferase 27 U/L (5-37); Bilirubin Direct 0.4 mg/dL (0.0-0.5); Bilirubin Total 0.8 mg/dL (0.0-1.0); Blood Urea Nitrogen 62 mg/dL (9-16); Carbon Dioxide 16 mmol/L (22-29); Chloride 107 mmol/L (96-108); Creatinine Clr Calc Pharmacy 21.5; Estimated Glomerular Filt Rate 25; Glucose Random 216 mg/dL (60-115); Sodium 135 mmol/L (135-145); Total Protein 7.4 g/dL (6.5-8.0)
[2024-11-05 16:33] LABS: Lactic Acid 1.9 mmol/L (0.5-2.0)
[2024-11-05 16:38] LABS: B Type Natriuretic Peptide 275 pg/mL (<100); Troponin-I High Sensitivity 27.1 ng/L (<3.5-35.0)
[2024-11-05 18:23] LABS: Glucose, Whole Blood 174 mg/dL (60-115)
[2024-11-05 19:00] LABS: Influenza A PCR NEGATIVE (Negative); Influenza B PCR NEGATIVE (Negative); Resp Syncy Virus RNA Qual PCR NEGATIVE (Negative); SARS COV2 PCR INHOUSE NEGATIVE (Negative)
--- NOTE | 2024-11-05 19:10 | PM.IMHP ---
History of Present Illness Date of Service: 11/05/24 <ZACKERY Sebastian - Last Filed: 11/05/24 20:33> Attending physician on admission: Cheo Urbina <ZACKERY Sebastian - Last Filed: 11/05/24 20:33> Chief Complaint: SOB <ZACKERY Sebastian - Last Filed: 11/05/24 20:33> Pt is an 79-year-old male with a PMH significant for?COPD with chronic hypoxic respiratory failure on chronic 3L home O2, hx of ARDS, HFpEF, CAD w/hx of NSTEMI on DAPT, HTN, HLD, and insulin-dependent type 2 diabetes who presents to the ED for evaluation of low blood pressure, dizziness, weakness, and not eating for the past 2-3 days. Patient also has been experiencing SOB, JOSE, cough, and increased oxygen requirements from 3L to 4.5 L. Patient also experienced 1 episode of vomiting yesterday and has had worsening cough since then. Patient reports had similar episode of a ?double? pneumonia 1 year ago in October 2023. Denies chest pain/pressure, palpitations. No fever, chills, abdominal pain. In the ED pt was tachycardic up to 102, tachypneic up to 23, with soft BP as low as 119/36, and desatting to 86% on 10L OxyMask. Labs were significant for leukocytosis of 16.6, creatinine 2.5 to (elevated from 1.61 on 02/25/2024), and BNP 275. VBG with pH 7.29 and bicarb 14. CXR showed patchy infiltrates in left lower and left upper lobes with possible right lower lobe infiltrate. EKG demonstrated normal sinus rhythm without significant ST elevations or depressions. Pt was treated with IVF, DuoNebs, Solu-Medrol, ceftriaxone, and azithromycin. Pt will be admitted to the hospital for acute on chronic hypoxic respiratory failure in the setting of multifocal pneumonia with sepsis and COPD exacerbation. <ZACKERY Sebastian - Last Filed: 11/05/24 20:33> Review of Systems Review of Systems: Negative except for that which is stated in the HPI <ZACKERY Sebastian Last Filed: 11/05/24 20:33> [facility] Medical History: Medical History (Updated 11/05/24 @ 20:12 by ZACKERY Sebastian) Acute and chronic respiratory failure with hypoxia Acute on chronic heart failure with preserved ejection fraction (HFpEF) Pneumonia Acute non-ST elevation myocardial infarction (NSTEMI) Adult respiratory distress syndrome Hyperlipidemia Hypertension Diabetes mellitus, type 2 Chronic respiratory failure with hypoxia COPD (chronic obstructive pulmonary disease) CKD (chronic kidney disease) CHF (congestive heart failure) Coronary artery disease <ZACKERY Sebastian - Last Filed: 11/05/24 20:33> Family History: Family History Other Cancer <ZACKERY Sebastian - Last Filed: 11/05/24 20:33> Surgical History: Surgical History S/P coronary artery stent placement <ZACKERY Sebastian - Last Filed: 11/05/24 20:33> Social History: Social History Household Members: Spouse and Children Housing: House Do you presently have visiting nurse or other home services: No Alcohol intake: never Patient Tobacco Use Status: Former Tobacco user Smoked in Last 30 Days: No Second Hand Smoke Exposure: No Use of substances other than those prescribed or required for medical reasons: No Advance Directives: No Advance Directives Information Provided: Yes Do you have a plan to hurt others: No Plan service: No <ZACKERY Sebastian - Last Filed: 11/05/24 20:33> Meds Allergies/Adverse reactions: Allergies Allergy/AdvReac Type Severity Reaction Status Date / Time No Known Allergies Allergy Verified 11/05/24 15:49 <ZACKERY Sebastian - Last Filed: 11/05/24 20:33> Home medications: Home Medications ?Medication ?Instructions ?Recorded ?Confirmed ?Last Taken ?Type aspirin 81 mg chewable tablet 1 tab PO DAILY 10/03/23 11/05/24 11/05/24 History atorvastatin 80 mg tablet 80 mg PO DAILY 10/03/23 11/05/24 11/05/24 History empagliflozin 10 mg tablet 10 mg PO DAILY 10/03/23 11/05/24 11/05/24 History (Jardiance) ferrous sulfate 325 mg (65 mg 325 mg PO DAILY 10/03/23 11/05/24 11/05/24 History iron) tablet insulin aspart U-100 100 unit/mL See Protocol subcut TIDAC 10/03/23 11/05/24 11/05/24 History (3 mL) subcutaneous pen (Novolog FlexPen U-100 Insulin aspart) umeclidinium 62.5 mcg/actuation 1 inh inhalation DAILY 10/03/23 11/05/24 11/05/24 History blister powder for inhalation (Incruse Ellipta) nitroglycerin 0.4 mg sublingual 0.4 mg sublingual Q5M PRN Chest 10/29/23 11/05/24 Unknown History tablet Pain nystatin 100,000 unit/gram topical 1 appl topical BID PRN Rash 10/29/23 11/05/24 Unknown History powder vit C 250 mg-vit E 90 mg-zinc 40 1 cap PO BID 10/29/23 11/05/24 11/05/24 History mg-copper 1 rl-afgjcs-sffuof capsule (PreserVision AREDS-2) insulin glargine 100 unit/mL 13 unit subcut BEDTIME 11/05/24 11/05/24 11/04/24 History subcutaneous solution (Lantus U-100 Insulin) torsemide 20 mg tablet 10 mg PO DAILY 11/05/24 11/05/24 11/05/24 History <ZACKERY Sebastian - Last Filed: 11/05/24 20:33> Physical Exam Vital Signs and Narrative: Vital Signs: Last Vital Signs Temp 98.0 F 11/05/24 18:54 Pulse 88 11/05/24 18:54 Resp 23 H 11/05/24 18:54 BP 114/54 L 11/05/24 18:54 Pulse Ox 94 11/05/24 18:54 O2 Del Method Oxymask 11/05/24 18:54 O2 Flow Rate 14 11/05/24 18:54 Oxygen Flow Rate 10 11/05/24 15:45 BMI result Body Mass Index 32.6 <ZACKERY Sebastian - Last Filed: 11/05/24 20:33> Constitutional: Alert, in no acute distress. Mental Status: Oriented to person, place and time. Eyes: Pupils are equal, round, and reactive to light. Ear, Nose, and Throat: Oropharynx clear, mucous membranes moist. Ears and nose without deformities. Trachea midline. Respiratory: Diffuse wheezing and rhonchi bilaterally. Diaphoretic breathing. Capable of speaking in complete sentences. Cardiovascular: S1, S2 regular. No murmurs, rubs, or gallops. Gastrointestinal: Abdomen soft, non-tender, non-distended. Normal bowel sounds. Neurologic: Cranial nerves II-XII are grossly intact bilaterally. No focal neurological deficits. Moves all extremities spontaneously. Skin: Warm, dry. Extremities: No edema. Psychiatric: Normal mood and affect. <ZACKERY Sebastian - Last Filed: 11/05/24 20:33> Results Labs CBC and Chem 7: 11/05/24 16:06 11/05/24 16:06 <ZACKERY Sebastian - Last Filed: 11/05/24 20:33> Labs: Laboratory Results - last 24 hr 11/05/24 11/05/24 11/05/24 16:06 16:14 18:19 MCV 90.4 MCH 29.0 MCHC 32.0 RDW 15.4 Plt Count 255 MPV 11.0 Immature Gran % (Auto) 0.6 H Neut % (Auto) 82.7 H Lymph % (Auto) 7.8 L [place] % (Auto) 8.3 Eos % (Auto) 0.2 Baso % (Auto) 0.4 Lymph # (Auto) 1.3 [place] # (Auto) 1.4 H Eos # (Auto) 0.0 Baso # (Auto) 0.1 Abs Immat Gran (auto) 0.10 H Absolute Neuts (auto) 13.7 H Absolute Nucleated RBC 0.000 Nucleated RBC % (auto) 0.0 PT 15.9 H INR 1.4 H VBG pH 7.29 L VBG pCO2 29 VBG pO2 50 VBG HCO3 14 L VBG O2 Saturation 75.0 VBG Base Excess -10.2 Anion Gap 17 Estim Creat Clear Calc 21.5 Estimated GFR 25 POC Glucose 174 H Random Glucose 216 H Lactic Acid 1.9 Calcium 9.0 Total Bilirubin 0.8 Direct Bilirubin 0.4 AST 27 ALT 14 Alkaline Phosphatase 92 Troponin I High Sens 27.1 D B-Natriuretic Peptide 275 H Total Protein 7.4 Albumin 3.1 L Influenza Type A (PCR) Influenza Type B (PCR) RSV RNA Qual (PCR) SARS-CoV-2 RNA (RT-PCR) 11/05/24 18:20 MCV MCH MCHC RDW Plt Count MPV Immature Gran % (Auto) Neut % (Auto) Lymph % (Auto) [place] % (Auto) Eos % (Auto) Baso % (Auto) Lymph # (Auto) [place] # (Auto) Eos # (Auto) Baso # (Auto) Abs Immat Gran (auto) Absolute Neuts (auto) Absolute Nucleated RBC Nucleated RBC % (auto) PT INR VBG pH VBG pCO2 VBG pO2 VBG HCO3 VBG O2 Saturation VBG Base Excess Anion Gap Estim Creat Clear Calc Estimated GFR POC Glucose Random Glucose Lactic Acid Calcium Total Bilirubin Direct Bilirubin AST ALT Alkaline Phosphatase Troponin I High Sens B-Natriuretic Peptide Total Protein Albumin Influenza Type A (PCR) NEGATIVE Influenza Type B (PCR) NEGATIVE RSV RNA Qual (PCR) NEGATIVE SARS-CoV-2 RNA (RT-PCR) NEGATIVE <ZACKERY Sebastian - Last Filed: 11/05/24 20:33> Assessment and Plan (1) Acute kidney injury superimposed on CKD: Status: Acute <ZACKERY Sebastian - Last Filed: 11/05/24 20:33> (2) Pneumonia: Status: Acute <ZACKERY Sebastian Last Filed: 11/05/24 20:33> (3) Acute and chronic respiratory failure with hypoxia: Status: Acute <ZACKERY Sebastian - Last Filed: 11/05/24 20:33> Pt is an 79-year-old male with a PMH significant for?COPD with chronic hypoxic respiratory failure on chronic 3L home O2, hx of ARDS, HFpEF, CAD w/hx of NSTEMI on DAPT, HTN, HLD, and insulin-dependent type 2 diabetes who presents to the ED for evaluation of low blood pressure, dizziness, weakness, and not eating for the past 2-3 days. Pt will be admitted to the hospital for acute on chronic hypoxic respiratory failure in the setting of multifocal pneumonia with sepsis and COPD exacerbation. Acute on chronic hypoxic respiratory failure in the setting multifocal pneumonia with sepsis and COPD exacerbation Pt with SOB, JOSE, cough worsening after episode of nausea and vomiting yesterday CXR showing multifocal pneumonia, pt desatting to 86% on 10L OxyMask Concerning for possible aspiration pneumonia Meets sepsis criteria with tachycardia, tachypnea, leukocytosis; lactic acid WNL at 1.9 Patient given IVF and started on broad-spectrum antibiotics in the ED Will cover with Zosyn, started 11/05/2024 Titrate supplemental oxygen to >90 on home 3L Monitor respiratory status MAE on CKD3 Creatinine 2.52, elevated from 1.61 on 02/25/2024 In the setting of above and reduced p.o. intake Patient given 1 L IVF in the ED Will hold on additional IVF due to hx of CHF Follow renal function HFpEF Appears euvolemic, not in apparent exacerbation Elevated BNP likely due to pneumonia Continue carvedilol, furosemide CAD Continue aspirin, clopidogrel, and statin Insulin-dependent type 2 diabetes Continue Jardiance Will place on sliding scale insulin, Lantus Diabetic diet Full Code Attending:?Dr. Fox DVT Prophylaxis: Lovenox Pt will require a hospitalization of at least two nights for treatment of?acute on chronic hypoxic respiratory failure in the setting of multifocal pneumonia with sepsis and COPD exacerbation. Patient will require hospital level care for administration of supplemental oxygen above baseline, IV antibiotics, IV steroids, breathing treatments, and close monitoring of respiratory status. <ZACKERY Sebastian - Last Filed: 11/05/24 20:33> Pt is an 79-year-old male with a PMH significant for?COPD with chronic hypoxic respiratory failure on chronic 3L home O2, hx of ARDS, HFpEF, CAD w/hx of NSTEMI on DAPT, HTN, HLD, and insulin-dependent type 2 diabetes who presents to the ED for evaluation of low blood pressure, dizziness, weakness, and not eating for the past 2-3 days. Pt will be admitted to the hospital for acute on chronic hypoxic respiratory failure in the setting of multifocal pneumonia with sepsis and COPD exacerbation. Acute on chronic hypoxic respiratory failure in the setting multifocal pneumonia with sepsis and COPD exacerbation Pt with SOB, JOSE, cough worsening after episode of nausea and vomiting yesterday CXR showing multifocal pneumonia, pt desatting to 86% on 10L OxyMask Concerning for possible aspiration pneumonia Meets sepsis criteria with tachycardia, tachypnea, leukocytosis; lactic acid WNL at 1.9 Patient given IVF and started on broad-spectrum antibiotics in the ED Will cover with Zosyn, started 11/05/2024 Titrate supplemental oxygen to >90 on home 3L Monitor respiratory status MAE on CKD3 Creatinine 2.52, elevated from 1.61 on 02/25/2024 In the setting of above and reduced p.o. intake Patient given 1 L IVF in the ED Will hold on additional IVF due to hx of CHF Follow renal function Worsening metabolic acidosis likely secondary to above Nephrology consult. HFpEF Appears euvolemic, not in apparent exacerbation Elevated BNP likely due to pneumonia Continue carvedilol, furosemide CAD Continue aspirin, clopidogrel, and statin Insulin-dependent type 2 diabetes Continue Jardiance Will place on sliding scale insulin, Lantus Diabetic diet Full Code Attending:?Dr. Fox DVT Prophylaxis: Lovenox Pt will require a hospitalization of at least two nights for treatment of?acute on chronic hypoxic respiratory failure in the setting of multifocal pneumonia with sepsis and COPD exacerbation. Patient will require hospital level care for administration of supplemental oxygen above baseline, IV antibiotics, IV steroids, breathing treatments, and close monitoring of respiratory status. <Cheo Urbina MD - Last Filed: 11/06/24 00:20> Quality Stroke Does the patient have a stroke diagnosis?: No <ZACKERY Sebastian - Last Filed: 11/05/24 20:33> VTE Prior VTE?: No <ZACKERY Sebastian - Last Filed: 11/05/24 20:33> VTE Risk Level:: Medical - moderate - high <ZACKERY Sebastian - Last Filed: 11/05/24 20:33> VTE Device Contraindication: Treatment Not Indicated <ZACKERY Sebastian - Last Filed: 11/05/24 20:33> VTE Drug Contraindication: N/A - Med Ordered <ZACKERY Sebastian - Last Filed: 11/05/24 20:33>
[2024-11-05 20:48] LABS: VBG Base Excess -11.6 mmol/L; VBG HCO3 13 mmol/L (22-26); VBG pCO2 28 mmHg; VBG pH 7.27 (7.32-7.43); VBG pO2 53 mmHg
[2024-11-05 20:55] LABS: Venous Blood Gas Refer to POC result
--- NOTE | 2024-11-05 21:08 | PHA.MEDREC ---
Addendum entered by Denise Palomo RPh 11/05/24 21:42: tech went down to clarify about torsemide again, patient is taking 1/2 tablet instead of 1 full 20 mg tablet. Addendum entered by Denise Palomo RPh 11/05/24 21:27: reviewed by [facility]. Original Note: Pharmacy Consult ? Medication Reconciliation Pharmacy has completed the medication reconciliation. Spoke with patients at bedside and she was able to confirm patients medications. The patients confirmed that her is taking Novolog FlexPen and states he uses it per sliding scale three times a day before meals. She also confirmed her husbands Lantus Solostar but the patient was the one who confirmed he injected 13 units at bedtime last night (11/04). The patient confirmed he took his morning medications this morning.
[2024-11-05] MEDS: Piperacillin Sodium/Tazobactam 2.25 GM in 0.9 % Sodium Chloride 50 ML IV (21:30)
[2024-11-05] MEDS: 0.9 % Sodium Chloride Flush 3 ML SYRINGE IVFLUSH (23:31)
[2024-11-05] MEDS: Insulin Glargine,Hum.rec.anlog 100 UNIT/ML 10 ML VIAL 13 UNIT SUBCUT (23:34)
[2024-11-06] VITALS (12 sets, daily range): BP systolic 121–165; BP diastolic 43–72; PULSE 86–95; RESP 15–21; TEMP 36.1–37.2; O2SAT 89–95
[2024-11-06] MEDS: Piperacillin Sodium/Tazobactam 2.25 GM in 0.9 % Sodium Chloride 50 ML IV ×4 (02:57→20:51)
[2024-11-06 06:23] LABS: Basophils Percent Auto 0.2 % (0-2); Hematocrit 41.9 % (42.0-52.0); Hemoglobin 13.2 g/dl (14.0-18.0); Imm Gran Abs Auto 0.03 X10*3/uL (0.00-0.03); Imm Gran Pct Auto 0.3 % (0.0-0.4); Lymphocytes Absolute Auto 0.8 X10*3/uL (1.2-4.9); Lymphocytes Percent Auto 7.4 % (20-40); MANUAL DIFF FLAG SCAN; Mean Corpuscular HGB Conc 31.5 g/dl (31.0-36.0); Mean Corpuscular Hemoglobin 28.9 pg (27.0-33.0); Mean Corpuscular Volume 91.9 fL (80.0-98.0); Mean Platelet Volume 10.8 fL (9.4-12.4); Monocytes Absolute Auto 0.1 X10*3/uL (0.1-1.2); Monocytes Percent Auto 0.9 % (2-11); Neutrophils Absolute Auto 9.8 x10*3/uL (2.0-8.3); Neutrophils Percent Auto 91.2 % (45-73); Platelet Count 226 X10*3/uL (160-400); Red Blood Count 4.56 X10*6/uL (4.60-5.80); Red Cell Distribution Width 15.1 % (11.0-16.0); SCAN SMEAR FLAG 1; White Blood Count 10.7 X10*3/uL (4.8-10.8)
[2024-11-06 06:41] LABS: Anion Gap 20 (12-20); Blood Urea Nitrogen 54 mg/dL (9-16); Calcium 8.7 mg/dL (8.4-10.2); Carbon Dioxide 12 mmol/L (22-29); Chloride 109 mmol/L (96-108); Creatinine Clr Calc Pharmacy 20.4; Estimated Glomerular Filt Rate 23; Glucose Random 275 mg/dL (60-115); Potassium 5.2 mmol/L (3.3-5.1); Sodium 136 mmol/L (135-145)
[2024-11-06 07:17] LABS: SLIDE REVIEW VERIFIED
[2024-11-06] MEDS: Albuterol/Iprat 2.5/0.5MG 3 ML AMPUL.NEB INHALE ×4 (07:36→20:38)
[2024-11-06 07:44] LABS: Glucose, Whole Blood 257 mg/dL (60-115)
[2024-11-06] MEDS: Insulin Lispro 100 UNIT/ML 3 ML VIAL SUBCUT ×4 (07:51→22:33)
[2024-11-06] MEDS: methylPREDNISolone Sod Succ 40 MG/ML VIAL IVPUSH (07:51)
[2024-11-06] MEDS: Enoxaparin Sodium 30 MG/0.3 ML SYRINGE SUBCUT (07:52)
[2024-11-06] MEDS: carvediloL 3.125 MG TABLET PO ×2 (07:52→20:35)
[2024-11-06] MEDS: Aspirin 81 MG TAB.CHEW PO (07:52)
[2024-11-06] MEDS: Isosorbide Mononitrate 30 MG TAB.ER.24H 15 MG PO (07:52)
[2024-11-06] MEDS: Ferrous Sulfate 324 MG TABLET.DR PO (07:52)
[2024-11-06] MEDS: Empagliflozin 10 MG TABLET PO (07:53)
[2024-11-06] MEDS: Atorvastatin Calcium 80 MG TABLET PO (07:53)
[2024-11-06] MEDS: 0.9 % Sodium Chloride Flush 3 ML SYRINGE IVFLUSH ×3 (07:56→20:35)
--- NOTE | 2024-11-06 08:20 | P.CONNP_ITS ---
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 Presented 11/05 with low blood pressure, dizziness, weakness, no PO intake for 2-3 days, shortness of breath, cough, increased O2 requirements to 4.5L, and vomiting x1. being treated for multifocal pneumonia with sepsis and COPD exacerbation. Nephrology consulted for MAE on CKD3 creatinine 2.52 (1.61 in February 2024), 1L IFV given in ED 11/06 creatinine 2.65 K 11/06 is 5.2 (5.0 on 11/05) serum bicarb 12 on 11/06, 11/05 was 16 he is making urine, though only 375mL output since arrival (less than 24 hours) taking jardiance denies use of NSAIDs he is unable to specify home medications, though states he does think he was taking a water pill torsemide at home as well He denies chest pain, dizziness, shortness of breath states his breathing is much more comfortable today than yesterday- remains on 4.5L O2 via NC he denies abdominal pain, flank pain he denies lower extremity edema Review of Systems Constitutional: Reports fatigue, Denies headache(s) and Denies malaise Denies dizziness and Denies headache(s) Cardiovascular: Denies chest pain, Denies leg edema, Denies lightheadedness and Denies dyspnea Respiratory: Reports cough and Denies dyspnea Gastrointestinal: Denies abdominal pain, Denies constipation, Denies diarrhea, Denies nausea and Denies vomiting Genitourinary: Denies hematuria, Denies oliguria, Denies difficulty urinating, Denies dysuria, Denies flank pain, Denies urinary frequency and Denies urinary incontinence Musculoskeletal: Denies arthralgias and Denies muscle cramps Skin/Breast: Denies rash Denies dizziness, Denies headache(s) and Denies tremor(s) Endocrine: Reports fatigue PMFSH Past Medical History Medical History (Updated 11/06/24 @ 09:30 by Lynn Parsons, RISHI, SPONGE MAKER-BC) Acute and chronic respiratory failure with hypoxia Acute on chronic heart failure with preserved ejection fraction (HFpEF) Pneumonia Acute non-ST elevation myocardial infarction (NSTEMI) Adult respiratory distress syndrome Hyperlipidemia Hypertension Diabetes mellitus, type 2 Chronic respiratory failure with hypoxia COPD (chronic obstructive pulmonary disease) CKD (chronic kidney disease) CHF (congestive heart failure) Coronary artery disease Family History Family History Other Cancer Surgical History Surgical History S/P coronary artery stent placement Social History Social History Household Members: Spouse and Children Housing: House Do you presently have visiting nurse or other home services: No Alcohol intake: never Patient Tobacco Use Status: Former Tobacco user Smoked in Last 30 Days: No Second Hand Smoke Exposure: No Use of substances other than those prescribed or required for medical reasons: No Advance Directives: No Advance Directives Information Provided: Yes Do you have a plan to hurt others: No Plan service: No Meds Allergies Allergy/AdvReac Type Severity Reaction Status Date / Time No Known Allergies Allergy Verified 11/05/24 15:49 Active Medications: Current Medications Acetaminophen (Acetaminophen 325 Mg Tablet) 975 mg PO Q6H PRN PRN Reason: Pain, Mild (Pain Scale 1-3), fever or headache Albuterol Sulfate (Albuterol Sulfate (0.083%) 2.5 Mg/3 Ml Vial.Neb) 2.5 mg INHALE Q2H PRN PRN Reason: Shortness of Breath/Wheezing Albuterol/Ipratropium (Albuterol/Iprat 2.5/0.5mg 3 Ml Ampul.Neb) 3 ml INHALE RQ4H WHILE AWAKE [facility] Last Admin: 11/06/24 07:36 Dose: 3 ml Aspirin (Aspirin 81 Mg Tab.Chew) 81 mg PO DAILY [facility] Last Admin: 11/06/24 07:52 Dose: 81 mg Atorvastatin Calcium (Atorvastatin Calcium 80 Mg Tablet) 80 mg PO DAILY [facility] Last Admin: 11/06/24 07:53 Dose: 80 mg Carvedilol (Carvedilol 3.125 Mg Tablet) 3.125 mg PO BID [facility]; Protocol Last Admin: 11/06/24 07:52 Dose: 3.125 mg Empagliflozin (Empagliflozin 10 Mg Tablet) 10 mg PO DAILY [facility] Last Admin: 11/06/24 07:53 Dose: 10 mg Enoxaparin Sodium (Enoxaparin Sodium 30 Mg/0.3 Ml Syringe) 30 mg SUBCUT Q24H [facility] Last Admin: 11/06/24 07:52 Dose: 30 mg Ferrous Sulfate (Ferrous Sulfate 324 Mg Tablet.Dr) 324 mg PO DAILY [facility] Last Admin: 11/06/24 07:52 Dose: 324 mg Glucose (Glucose Gel 15 Gm Gel..Gram.) 15 gm PO Q15M PRN; Protocol PRN Reason: per Hypoglycemia Standing Ord. Dextrose (D10) 250 mls @ 750 mls/hr IV Q15M PRN; Protocol PRN Reason: per Hypoglycemia Standing Ord. Piperacillin Sod/Tazobactam (Sod 2.25 gm/ Sodium Chloride) 50 mls @ 100 mls/hr IV Q6H [facility] Last Infusion: 11/06/24 08:57 Dose: Infused Insulin Glargine (Insulin Glargine,Hum.Rec.Anlog 100 Unit/Ml 10 Ml Vial) 13 unit SUBCUT BEDTIME [facility] Last Admin: 11/05/24 23:34 Dose: 13 unit Insulin Human Lispro (Insulin Lispro 100 Unit/Ml 3 Ml Vial) 0 unit SUBCUT QIDACHS [facility]; Protocol Last Admin: 11/06/24 07:51 Dose: 6 unit Isosorbide Mononitrate (Isosorbide Mononitrate 30 Mg Tab.Er.24h) 15 mg PO DAILY [facility]; Protocol Last Admin: 11/06/24 07:52 Dose: 15 mg Methylprednisolone Sodium Succinate (Methylprednisolone Sod Succ 40 Mg/Ml Vial) 40 mg IVPUSH BID [facility] Last Admin: 11/06/24 07:51 Dose: 40 mg Non-Formulary Medication (Vit C,G-Fz-Mjqkt-Lutein-Zeaxan [Preservision Areds-2]) 1 cap PO BID [facility] Sodium Chloride (0.9 % Sodium Chloride Flush 3 Ml Syringe) 3 ml IVFLUSH QSHIFT [facility] Last Admin: 11/06/24 07:56 Dose: 3 ml Tiotropium Armstrong (Tiotropium Armstrong 2.5 Mcg 1 Puff/2.5 Mcg Mist.Inhal) 2 puff INHALE RDAILY ANDREW Home Medications ?Medication ?Instructions ?Recorded ?Confirmed ?Last Taken ?Type aspirin 81 mg chewable tablet 1 tab PO DAILY 10/03/23 11/05/24 11/05/24 History atorvastatin 80 mg tablet 80 mg PO DAILY 10/03/23 11/05/24 11/05/24 History empagliflozin 10 mg tablet 10 mg PO DAILY 10/03/23 11/05/24 11/05/24 History (Jardiance) ferrous sulfate 325 mg (65 mg 325 mg PO DAILY 10/03/23 11/05/24 11/05/24 History iron) tablet insulin aspart U-100 100 unit/mL See Protocol subcut TIDAC 10/03/23 11/05/24 11/05/24 History (3 mL) subcutaneous pen (Novolog FlexPen U-100 Insulin aspart) umeclidinium 62.5 mcg/actuation 1 inh inhalation DAILY 10/03/23 11/05/24 11/05/24 History blister powder for inhalation (Incruse Ellipta) nitroglycerin 0.4 mg sublingual 0.4 mg sublingual Q5M PRN Chest 10/29/23 11/05/24 Unknown History tablet Pain nystatin 100,000 unit/gram topical 1 appl topical BID PRN Rash 10/29/23 11/05/24 Unknown History powder vit C 250 mg-vit E 90 mg-zinc 40 1 cap PO BID 10/29/23 11/05/24 11/05/24 History mg-copper 1 [id number] capsule (PreserVision AREDS-2) insulin glargine 100 unit/mL 13 unit subcut BEDTIME 11/05/24 11/05/24 11/04/24 History subcutaneous solution (Lantus U-100 Insulin) torsemide 20 mg tablet 10 mg PO DAILY 11/05/24 11/05/24 11/05/24 History Physical Exam Vital Signs: Last Vital Signs Temp 98.0 F 11/06/24 04:00 Pulse 91 11/06/24 07:52 Resp 21 H 11/06/24 07:37 BP 165/72 H 11/06/24 07:52 Pulse Ox 91 L 11/06/24 04:00 O2 Del Method Oxymask 11/06/24 04:00 O2 Flow Rate 8 11/06/24 04:00 Oxygen Flow Rate 10 11/05/24 15:45 BMI result Body Mass Index 32.6 Const General: no acute distress, alert and awake Resp Effort & Inspection: normal respiratory effort and able to speak in complete sentences Auscultation: crackles (posterior lower lobe crackles ) Cardio Rate: regular rate Rhythm: regular rhythm Heart sounds: S1 normal heart sound present and S2 normal heart sound present General: Yes no CVA tenderness Back/Spine/Pelvis Back: no CVA tenderness Skin Lesions: no lesions Rashes: no rashes Extrem General: No edema Results Lab Results 11/06/24 06:18 11/06/24 06:18 Lab results: Chemistry 11/05/24 11/06/24 16:06 06:18 Sodium 135 136 Potassium 5.0 5.2 H Carbon Dioxide 16 L 12 L BUN 62 H 54 H Creatinine 2.52 H 2.65 H Calcium 9.0 8.7 Hematology 11/05/24 11/06/24 16:06 06:18 WBC 16.6 H 10.7 Hgb 12.4 L 13.2 L Plt Count 255 226 Assessment and Plan (1) Acute kidney injury superimposed on CKD: Status: Acute (2) Metabolic acidosis: Status: Acute (3) Pneumonia: Qualifiers: Laterality: left Lung location: unspecified part of lung Pneumonia type: due to unspecified organism Qualified Code(s): J18.9 - Pneumonia, unspecified organism Status: Acute Plan MAE on CKD3 likely ATN secondary to hypoperfusion from poor PO intake while taking diuretic at home. New Creatinine seems to be plateauing metabolic acidosis- recommend 1300mg sodium bicarb PO BID recommend continuing current regimen avoid nephrotoxins BP checks regularly, monitor intake and output will continue to follow Discussed with Dr Bar Procedures Date of Service Date of Service: 11/06/24
[2024-11-06] MEDS: Sodium Zirconium Cyclosilicate 10 GM POWD.PACK PO (08:29)
--- NOTE | 2024-11-06 09:45 | MHC.CM.PN ---
Patient is unavailable; CM spoke with Daughter/HCP/IT HELP DESK TECHNICIAN/17/06 CAREGIVER/Zahraa @ [phone] and addressed IMM with her (original will be mailed certified letter to Zahraa and a copy will be placed on the chart). 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 Zahraa is the IT HELP DESK TECHNICIAN and cares for Patient 17/06y and his home O2 is supplied by [employer]. Home/resume said services is the goal and CM has initiated and will follow for dc planning. PCP is Dr. MARTINEZ/Ninfa in [place] and Zahraa will transport to home.
[2024-11-06] MEDS: Tiotropium Bromide 2.5 mcg 1 PUFF/2.5 MCG MIST.INHAL 2 PUFF INHALE (11:23)
--- NOTE | 2024-11-06 11:57 | P.PNIM_ITS ---
Subjective Subjective Date of Service: 11/06/24 Interval History: Seen and evaluated this morning feels little better on 6L O2 WBCs trending down has metabolic acidosis no other events Review of Systems Review of Systems: Yes all other systems are reviewed and are negative Physical Exam 2 Vital Signs: Vital Signs: Last Vital Signs Temp 98.0 F 11/06/24 04:00 Pulse 86 11/06/24 11:22 Resp 15 11/06/24 11:22 BP 165/72 H 11/06/24 07:52 Pulse Ox 91 L 11/06/24 04:00 O2 Del Method Oxymask 11/06/24 04:00 O2 Flow Rate 8 11/06/24 04:00 Oxygen Flow Rate 10 11/05/24 15:45 BMI result Body Mass Index 32.6 Const: Other: Constitutional : Awake, interactive, not in distress Neck : Normal inspection, Supple Cardiovascular : RRR, mild JVP, trace lower extremity edema Respiratory : decreased bilateral air entry, basal fine crackles, scattered wheezes Gastrointestinal: soft, lax, Normal bowel sounds, Non tender Skin : Warm, Dry Neurological : Alert & oriented x3, No focal deficit Objective Data Active Medications Acetaminophen (Acetaminophen 325 Mg Tablet) 975 mg PO Q6H PRN PRN Reason: Pain, Mild (Pain Scale 1-3), fever or headache Albuterol Sulfate (Albuterol Sulfate (0.083%) 2.5 Mg/3 Ml Vial.Neb) 2.5 mg INHALE Q2H PRN PRN Reason: Shortness of Breath/Wheezing Albuterol/Ipratropium (Albuterol/Iprat 2.5/0.5mg 3 Ml Ampul.Neb) 3 ml INHALE RQ4H WHILE AWAKE [facility] Last Admin: 11/06/24 11:20 Dose: 3 ml Documented By: KADY Aspirin (Aspirin 81 Mg Tab.Chew) 81 mg PO DAILY [facility] Last Admin: 11/06/24 07:52 Dose: 81 mg Documented By: LEAH Atorvastatin Calcium (Atorvastatin Calcium 80 Mg Tablet) 80 mg PO DAILY [facility] Last Admin: 11/06/24 07:53 Dose: 80 mg Documented By: LEAH Carvedilol (Carvedilol 3.125 Mg Tablet) 3.125 mg PO BID [facility]; Protocol Last Admin: 12/13/24 07:52 Dose: 3.125 mg Documented By: LEAH Empagliflozin (Empagliflozin 10 Mg Tablet) 10 mg PO DAILY [facility] Last Admin: 11/06/24 07:53 Dose: 10 mg Documented By: LEAH Enoxaparin Sodium (Enoxaparin Sodium 30 Mg/0.3 Ml Syringe) 30 mg SUBCUT Q24H [facility] Last Admin: 11/06/24 07:52 Dose: 30 mg Documented By: LEAH Ferrous Sulfate (Ferrous Sulfate 324 Mg Tablet.Dr) 324 mg PO DAILY [facility] Last Admin: 11/06/24 07:52 Dose: 324 mg Documented By: LEAH Glucose (Glucose Gel 15 Gm Gel..Gram.) 15 gm PO Q15M PRN; Protocol PRN Reason: per Hypoglycemia Standing Ord. Dextrose (D10) 250 mls @ 750 mls/hr IV Q15M PRN; Protocol PRN Reason: per Hypoglycemia Standing Ord. Piperacillin Sod/Tazobactam (Sod 2.25 gm/ Sodium Chloride) 50 mls @ 100 mls/hr IV Q6H [facility] Last Infusion: 11/06/24 08:57 Dose: Infused Documented By: LEAH Insulin Glargine (Insulin Glargine,Hum.Rec.Anlog 100 Unit/Ml 10 Ml Vial) 13 unit SUBCUT BEDTIME [facility] Last Admin: 11/05/24 23:34 Dose: 13 unit Documented By: PHILL Insulin Human Lispro (Insulin Lispro 100 Unit/Ml 3 Ml Vial) 0 unit SUBCUT QIDACHS [facility]; Protocol Last Admin: 11/06/24 07:51 Dose: 6 unit Documented By: LEAH Isosorbide Mononitrate (Isosorbide Mononitrate 30 Mg Tab.Er.24h) 15 mg PO DAILY [facility]; Protocol Last Admin: 11/06/24 07:52 Dose: 15 mg Documented By: LEAH Methylprednisolone Sodium Succinate (Methylprednisolone Sod Succ 40 Mg/Ml Vial) 40 mg IVPUSH BID [facility] Last Admin: 11/06/24 07:51 Dose: 40 mg Documented By: LEAH Multivitamins/Vitamin C (Multivitamin Tablet) 1 tab PO DAILY [facility] Sodium Bicarbonate (Sodium Bicarbonate 650 Mg Tablet) 1,300 mg PO BID [facility] Sodium Chloride (0.9 % Sodium Chloride Flush 3 Ml Syringe) 3 ml IVFLUSH QSHIFT [facility] Last Admin: 11/06/24 07:56 Dose: 3 ml Documented By: COOPEB Tiotropium [place] (Tiotropium [place] 2.5 Mcg 1 Puff/2.5 Mcg Mist.Inhal) 2 puff INHALE RDAILY [facility] Last Admin: 11/06/24 11:23 Dose: 2 puff Documented By: KADY Labs 11/06/24 06:18 11/06/24 06:18 Labs: Laboratory Results - last 24 hr 11/05/24 11/05/24 11/05/24 16:06 16:14 18:19 MCV 90.4 MCH 29.0 MCHC 32.0 RDW 15.4 Plt Count 255 MPV 11.0 Immature Gran % (Auto) 0.6 H Neut % (Auto) 82.7 H Lymph % (Auto) 7.8 L Allen % (Auto) 8.3 Eos % (Auto) 0.2 Baso % (Auto) 0.4 Lymph # (Auto) 1.3 Allen # (Auto) 1.4 H Eos # (Auto) 0.0 Baso # (Auto) 0.1 Abs Immat Gran (auto) 0.10 H Absolute Neuts (auto) 13.7 H Absolute Nucleated RBC 0.000 Nucleated RBC % (auto) 0.0 Smear Tech's Comments PT 15.9 H INR 1.4 H VBG pH 7.29 L VBG pCO2 29 VBG pO2 50 VBG HCO3 14 L VBG O2 Saturation 75.0 VBG Base Excess -10.2 Anion Gap 17 Estim Creat Clear Calc 21.5 Estimated GFR 25 POC Glucose 174 H Random Glucose 216 H Lactic Acid 1.9 Calcium 9.0 Total Bilirubin 0.8 Direct Bilirubin 0.4 AST 27 ALT 14 Alkaline Phosphatase 92 Troponin I High Sens 27.1 D B-Natriuretic Peptide 275 H Total Protein 7.4 Albumin 3.1 L Influenza Type A (PCR) Influenza Type B (PCR) RSV RNA Qual (PCR) SARS-CoV-2 RNA (RT-PCR) 11/05/24 11/05/24 11/06/24 18:20 20:43 06:18 MCV 91.9 MCH 28.9 MCHC 31.5 RDW 15.1 Plt Count 226 MPV 10.8 Immature Gran % (Auto) 0.3 Neut % (Auto) 91.2 H Lymph % (Auto) 7.4 L Allen % (Auto) 0.9 L Eos % (Auto) 0.0 Baso % (Auto) 0.2 Lymph # (Auto) 0.8 L Allen # (Auto) 0.1 Eos # (Auto) 0.0 Baso # (Auto) 0.0 Abs Immat Gran (auto) 0.03 Absolute Neuts (auto) 9.8 H Absolute Nucleated RBC 0.000 Nucleated RBC % (auto) 0.0 Smear Tech's Comments VERIFIED PT INR VBG pH 7.27 L VBG pCO2 28 VBG pO2 53 VBG HCO3 13 L VBG O2 Saturation 78.0 VBG Base Excess -11.6 Anion Gap 20 Estim Creat Clear Calc 20.4 Estimated GFR 23 POC Glucose Random Glucose 275 H Lactic Acid Calcium 8.7 Total Bilirubin Direct Bilirubin AST ALT Alkaline Phosphatase Troponin I High Sens B-Natriuretic Peptide Total Protein Albumin Influenza Type A (PCR) NEGATIVE Influenza Type B (PCR) NEGATIVE RSV RNA Qual (PCR) NEGATIVE SARS-CoV-2 RNA (RT-PCR) NEGATIVE 11/06/24 07:39 MCV MCH MCHC RDW Plt Count MPV Immature Gran % (Auto) Neut % (Auto) Lymph % (Auto) Allen % (Auto) Eos % (Auto) Baso % (Auto) Lymph # (Auto) Allen # (Auto) Eos # (Auto) Baso # (Auto) Abs Immat Gran (auto) Absolute Neuts (auto) Absolute Nucleated RBC Nucleated RBC % (auto) Smear Tech's Comments PT INR VBG pH VBG pCO2 VBG pO2 VBG HCO3 VBG O2 Saturation VBG Base Excess Anion Gap Estim Creat Clear Calc Estimated GFR POC Glucose 257 H Random Glucose Lactic Acid Calcium Total Bilirubin Direct Bilirubin AST ALT Alkaline Phosphatase Troponin I High Sens B-Natriuretic Peptide Total Protein Albumin Influenza Type A (PCR) Influenza Type B (PCR) RSV RNA Qual (PCR) SARS-CoV-2 RNA (RT-PCR) Assessment and Plan (1) Metabolic acidosis: Status: Acute (2) Acute and chronic respiratory failure with hypoxia: Status: Acute (3) Acute kidney injury superimposed on CKD: Status: Acute (4) Pneumonia: Status: Acute Plan Pt is an 79-year-old male with a PMH significant for?COPD with chronic hypoxic respiratory failure on chronic 3L home O2, hx of ARDS, HFpEF, CAD w/hx of NSTEMI on DAPT, HTN, HLD, and insulin-dependent type 2 diabetes who presents to the ED for evaluation of low blood pressure, dizziness, weakness, and not eating for the past 2-3 days. Pt will be admitted to the hospital for acute on chronic hypoxic respiratory failure in the setting of multifocal pneumonia with sepsis and COPD exacerbation. Acute on chronic hypoxic respiratory failure 2/2 multifocal pneumonia with sepsis and COPD exacerbation CXR showing multifocal pneumonia cover with Zosyn, started 11/05/2024 pending cultures Titrate supplemental oxygen to >90 on home 3L Monitor respiratory status MAE on CKD3 with acute metabolic acidosis Creatinine 2.5 hold on additional IVF due to hx of CHF start Sodium bicarb PO bid for now NEphrology following Follow renal function acute hyperkalemia Kayexalate given follow bmP{ HFpEF Appears euvolemic, not in apparent exacerbation Elevated BNP likely due to pneumonia Continue carvedilol, furosemide CAD Continue aspirin, clopidogrel, and statin Insulin-dependent type 2 diabetes Continue Jardiance sliding scale insulin, Lantus Diabetic diet Full Code DVT Prophylaxis: Lovenox Pt will require a hospitalization overnight for treatment of?acute on chronic hypoxic respiratory failure in the setting of multifocal pneumonia with sepsis and COPD exacerbation. on IV antibiotics, IV steroids, breathing treatments, and close monitoring of respiratory status. Quality Stroke Does the patient have a stroke diagnosis?: No VTE Prior VTE?: No VTE Risk Level:: Medical - moderate - high VTE Device Contraindication: Treatment Not Indicated VTE Drug Contraindication: N/A - Med Ordered
[2024-11-06 12:44] LABS: Glucose, Whole Blood 279 mg/dL (60-115)
[2024-11-06] MEDS: Sodium Bicarbonate 650 MG TABLET 1300 MG PO ×2 (12:46→20:35)
[2024-11-06] MEDS: Multivitamin TABLET 1 TAB PO (12:46)
[2024-11-06 16:56] LABS: Glucose, Whole Blood 365 mg/dL (60-115)
[2024-11-06 22:15] LABS: Glucose, Whole Blood 369 mg/dL (60-115)
[2024-11-06] MEDS: Insulin Glargine,Hum.rec.anlog 100 UNIT/ML 10 ML VIAL 15 UNIT SUBCUT (22:32)
[2024-11-07] VITALS (11 sets, daily range): BP systolic 128–164; BP diastolic 61–83; PULSE 69–90; RESP 14–22; TEMP 35.8–36.8; O2SAT 90–98
[2024-11-07 00:46] LABS: Glucose, Whole Blood 290 mg/dL (60-115)
[2024-11-07] MEDS: Piperacillin Sodium/Tazobactam 2.25 GM in 0.9 % Sodium Chloride 50 ML IV ×4 (03:22→21:16)
[2024-11-07 07:27] LABS: Glucose, Whole Blood 216 mg/dL (60-115)
[2024-11-07] MEDS: Tiotropium Bromide 2.5 mcg 1 PUFF/2.5 MCG MIST.INHAL 2 PUFF INHALE (07:40)
[2024-11-07] MEDS: Albuterol/Iprat 2.5/0.5MG 3 ML AMPUL.NEB INHALE ×4 (07:40→19:45)
[2024-11-07] MEDS: Enoxaparin Sodium 30 MG/0.3 ML SYRINGE SUBCUT (07:56)
[2024-11-07] MEDS: Atorvastatin Calcium 80 MG TABLET PO (07:56)
[2024-11-07] MEDS: predniSONE 20 MG TABLET 40 MG PO (07:56)
[2024-11-07] MEDS: Isosorbide Mononitrate 30 MG TAB.ER.24H 15 MG PO (07:56)
[2024-11-07] MEDS: carvediloL 3.125 MG TABLET PO ×2 (07:57→21:14)
[2024-11-07] MEDS: Sodium Bicarbonate 650 MG TABLET 1300 MG PO ×2 (07:57→21:13)
[2024-11-07] MEDS: Aspirin 81 MG TAB.CHEW PO (07:58)
[2024-11-07] MEDS: Multivitamin TABLET 1 TAB PO (07:58)
[2024-11-07] MEDS: Insulin Lispro 100 UNIT/ML 3 ML VIAL SUBCUT ×4 (07:58→21:14)
[2024-11-07] MEDS: Ferrous Sulfate 324 MG TABLET.DR PO (07:58)
[2024-11-07] MEDS: Empagliflozin 10 MG TABLET PO (07:58)
[2024-11-07] MEDS: 0.9 % Sodium Chloride Flush 3 ML SYRINGE IVFLUSH ×3 (07:59→21:15)
[2024-11-07 08:13] LABS: Anion Gap 14 (12-20); Beta-Hydroxybutyrate 0.24 mmol/L (0.02-0.27); Blood Urea Nitrogen 66 mg/dL (9-16); Calcium 8.6 mg/dL (8.4-10.2); Carbon Dioxide 18 mmol/L (22-29); Chloride 110 mmol/L (96-108); Creatinine Clr Calc Pharmacy 23.6; Estimated Glomerular Filt Rate 28; Glucose Random 221 mg/dL (60-115); Potassium 4.2 mmol/L (3.3-5.1); Sodium 138 mmol/L (135-145)
--- NOTE | 2024-11-07 10:34 | HO.PM.IMPN ---
Subjective Subjective Date of Service: 11/07/24 Interval History: Seen and evaluated this morning feels little better required higher O2 supplement overnight, doing better this morning no other events Review of Systems Review of Systems: Yes all other systems are reviewed and are negative Physical Exam Vital Signs: Vital Signs: Last Vital Signs Temp 96.8 F 11/07/24 08:00 Pulse 85 11/07/24 08:00 Resp 16 11/07/24 08:00 BP 164/83 H 11/07/24 08:00 Pulse Ox 95 11/07/24 08:00 O2 Del Method Oxymask 11/07/24 08:00 O2 Flow Rate 9 11/07/24 08:00 Oxygen Flow Rate 10 11/05/24 15:45 BMI result Body Mass Index 32.6 Const: Other: Constitutional : Awake, interactive, not in distress Neck : Normal inspection, Supple Cardiovascular : RRR, mild JVP, trace lower extremity edema Respiratory : decreased bilateral air entry, basal fine crackles, scattered wheezes Gastrointestinal: soft, lax, Normal bowel sounds, Non tender Skin : Warm, Dry Neurological : Alert & oriented x3, No focal deficit Objective Data Active Medications Acetaminophen (Acetaminophen 325 Mg Tablet) 975 mg PO Q6H PRN PRN Reason: Pain, Mild (Pain Scale 1-3), fever or headache Albuterol Sulfate (Albuterol Sulfate (0.083%) 2.5 Mg/3 Ml Vial.Neb) 2.5 mg INHALE Q2H PRN PRN Reason: Shortness of Breath/Wheezing Albuterol/Ipratropium (Albuterol/Iprat 2.5/0.5mg 3 Ml Ampul.Neb) 3 ml INHALE RQ4H WHILE AWAKE [facility] Last Admin: 11/07/24 07:40 Dose: 3 ml Documented By: ROSALIE Aspirin (Aspirin 81 Mg Tab.Chew) 81 mg PO DAILY [facility] Last Admin: 11/07/24 07:58 Dose: 81 mg Documented By: AMARILIS Atorvastatin Calcium (Atorvastatin Calcium 80 Mg Tablet) 80 mg PO DAILY [facility] Last Admin: 11/07/24 07:56 Dose: 80 mg Documented By: AMAIRLIS Carvedilol (Carvedilol 3.125 Mg Tablet) 3.125 mg PO BID [facility]; Protocol Last Admin: 11/07/24 07:57 Dose: 3.125 mg Documented By: AMARILIS Empagliflozin (Empagliflozin 10 Mg Tablet) 10 mg PO DAILY [facility] Last Admin: 11/07/24 07:58 Dose: 10 mg Documented By: AMARILIS Enoxaparin Sodium (Enoxaparin Sodium 30 Mg/0.3 Ml Syringe) 30 mg SUBCUT Q24H [facility] Last Admin: 11/07/24 07:56 Dose: 30 mg Documented By: AMARILIS Ferrous Sulfate (Ferrous Sulfate 324 Mg Tablet.Dr) 324 mg PO DAILY [facility] Last Admin: 11/07/24 07:58 Dose: 324 mg Documented By: AMARILIS Glucose (Glucose Gel 15 Gm Gel..Gram.) 15 gm PO Q15M PRN; Protocol PRN Reason: per Hypoglycemia Standing Ord. Dextrose (D10) 250 mls @ 750 mls/hr IV Q15M PRN; Protocol PRN Reason: per Hypoglycemia Standing Ord. Piperacillin Sod/Tazobactam (Sod 2.25 gm/ Sodium Chloride) 50 mls @ 100 mls/hr IV Q6H [facility] Last Infusion: 11/07/24 09:56 Dose: Infused Documented By: AMARILIS Insulin Glargine (Insulin Glargine,Hum.Rec.Anlog 100 Unit/Ml 10 Ml Vial) 20 unit SUBCUT BEDTIME [facility] Insulin Human Lispro (Insulin Lispro 100 Unit/Ml 3 Ml Vial) 0 unit SUBCUT QIDACHS [facility]; Protocol Last Admin: 11/07/24 07:58 Dose: 4 unit Documented By: AMARILIS Isosorbide Mononitrate (Isosorbide Mononitrate 30 Mg Tab.Er.24h) 15 mg PO DAILY [facility]; Protocol Last Admin: 11/07/24 07:56 Dose: 15 mg Documented By: AMARILIS Multivitamins/Vitamin C (Multivitamin Tablet) 1 tab PO DAILY [facility] Last Admin: 11/07/24 07:58 Dose: 1 tab Documented By: AMARILIS Prednisone (Prednisone 20 Mg Tablet) 40 mg PO DAILY [facility] Last Admin: 11/07/24 07:56 Dose: 40 mg Documented By: AMARILIS Sodium Bicarbonate (Sodium Bicarbonate 650 Mg Tablet) 1,300 mg PO BID [facility] Last Admin: 11/07/24 07:57 Dose: 1,300 mg Documented By: AMARILIS Sodium Chloride (0.9 % Sodium Chloride Flush 3 Ml Syringe) 3 ml IVFLUSH QSHIFT [facility] Last Admin: 11/07/24 07:59 Dose: 3 ml Documented By: AMARILIS Tiotropium [place] (Tiotropium [place] 2.5 Mcg 1 Puff/2.5 Mcg Mist.Inhal) 2 puff INHALE RDAILY [facility] Last Admin: 11/07/24 07:40 Dose: 2 puff Documented By: ROSALIE Labs 11/06/24 06:18 11/07/24 06:39 Labs: Laboratory Results - last 24 hr 11/06/24 11/06/24 11/06/24 12:40 16:52 22:10 Hold Purple Top Anion Gap Estim Creat Clear Calc Estimated GFR POC Glucose 279 H 365 H* 369 H* Random Glucose Calcium Beta-Hydroxybutyrate 11/07/24 11/07/24 11/07/24 00:41 06:39 07:14 Hold Purple Top Anion Gap 14 Estim Creat Clear Calc 23.6 Estimated GFR 28 POC Glucose 290 H 216 H Random Glucose 221 H Calcium 8.6 Beta-Hydroxybutyrate 0.24 11/07/24 07:22 Hold Purple Top SEE NOTE Anion Gap Estim Creat Clear Calc Estimated GFR POC Glucose Random Glucose Calcium Beta-Hydroxybutyrate Microbiology Microbiology Results: Microbiology 11/05/24 16:05 Blood Culture - Preliminary Blood - Venous No growth after 24 hours. 11/05/24 16:06 Blood Culture - Preliminary Blood - Venous No growth after 24 hours. Assessment and Plan (1) Metabolic acidosis: Status: Acute (2) Acute and chronic respiratory failure with hypoxia: Status: Acute (3) Acute kidney injury superimposed on CKD: Status: Acute (4) Pneumonia: Status: Acute Plan Pt is an 79-year-old male with a PMH significant for?COPD with chronic hypoxic respiratory failure on chronic 3L home O2, hx of ARDS, HFpEF, CAD w/hx of NSTEMI on DAPT, HTN, HLD, and insulin-dependent type 2 diabetes who presents to the ED for evaluation of low blood pressure, dizziness, weakness, and not eating for the past 2-3 days. Pt will be admitted to the hospital for acute on chronic hypoxic respiratory failure in the setting of multifocal pneumonia with sepsis and COPD exacerbation. Acute on chronic hypoxic respiratory failure 2/2 multifocal pneumonia with sepsis and COPD exacerbation CXR showing multifocal pneumonia covered with Zosyn, started 11/05/2024 pending cultures DC steroids now, switch to PO Prednisone Titrate supplemental oxygen to >90 on home 3L Monitor respiratory status MAE on CKD3 with acute metabolic acidosis Creatinine improved to 2.2 Bicarb 18 Sodium bicarb PO bid NEphrology following Follow renal function acute hyperkalemia Kayexalate given, improved follow bmP HFpEF Appears euvolemic, not in apparent exacerbation Elevated BNP likely due to pneumonia Continue carvedilol, furosemide CAD Continue aspirin, clopidogrel, and statin Insulin-dependent type 2 diabetes Continue Jardiance sliding scale insulin, Lantus Diabetic diet Full Code DVT Prophylaxis: Lovenox Pt will require a hospitalization overnight for treatment of?acute on chronic hypoxic respiratory failure in the setting of multifocal pneumonia with sepsis and COPD exacerbation. on IV antibiotics, IV steroids, breathing treatments, and close monitoring of respiratory status. Quality Stroke Does the patient have a stroke diagnosis?: No VTE Prior VTE?: No VTE Risk Level:: Medical - moderate - high VTE Device Contraindication: Treatment Not Indicated VTE Drug Contraindication: N/A - Med Ordered
[2024-11-07 11:31] LABS: Glucose, Whole Blood 346 mg/dL (60-115)
[2024-11-07 16:38] LABS: Glucose, Whole Blood 322 mg/dL (60-115)
[2024-11-07 21:05] LABS: Glucose, Whole Blood 268 mg/dL (60-115)
[2024-11-07] MEDS: Insulin Glargine,Hum.rec.anlog 100 UNIT/ML 10 ML VIAL 20 UNIT SUBCUT (21:14)
[2024-11-08] VITALS (10 sets, daily range): BP systolic 113–167; BP diastolic 53–68; PULSE 68–109; RESP 14–20; TEMP 35.6–36.7; O2SAT 91–99
[2024-11-08] MEDS: Piperacillin Sodium/Tazobactam 2.25 GM in 0.9 % Sodium Chloride 50 ML IV ×4 (02:47→20:39)
[2024-11-08] MEDS: Albuterol/Iprat 2.5/0.5MG 3 ML AMPUL.NEB INHALE ×4 (07:39→19:34)
[2024-11-08] MEDS: Tiotropium Bromide 2.5 mcg 1 PUFF/2.5 MCG MIST.INHAL 2 PUFF INHALE (07:39)
[2024-11-08] MEDS: predniSONE 20 MG TABLET 40 MG PO (08:16)
[2024-11-08] MEDS: Isosorbide Mononitrate 30 MG TAB.ER.24H 15 MG PO (08:16)
[2024-11-08] MEDS: Ferrous Sulfate 324 MG TABLET.DR PO (08:16)
[2024-11-08] MEDS: Multivitamin TABLET 1 TAB PO (08:16)
[2024-11-08] MEDS: Sodium Bicarbonate 650 MG TABLET 1300 MG PO (08:16)
[2024-11-08] MEDS: Acetaminophen 325 MG TABLET 975 MG PO (08:16)
[2024-11-08] MEDS: carvediloL 3.125 MG TABLET PO ×2 (08:17→20:39)
[2024-11-08] MEDS: Empagliflozin 10 MG TABLET PO (08:17)
[2024-11-08] MEDS: Atorvastatin Calcium 80 MG TABLET PO (08:17)
[2024-11-08] MEDS: Enoxaparin Sodium 30 MG/0.3 ML SYRINGE SUBCUT (08:17)
[2024-11-08] MEDS: Aspirin 81 MG TAB.CHEW PO (08:17)
[2024-11-08] MEDS: 0.9 % Sodium Chloride Flush 3 ML SYRINGE IVFLUSH ×3 (08:18→20:40)
[2024-11-08 08:40] LABS: Glucose, Whole Blood 130 mg/dL (60-115)
[2024-11-08 08:57] LABS: Anion Gap 13 (12-20); Blood Urea Nitrogen 59 mg/dL (9-16); Calcium 8.4 mg/dL (8.4-10.2); Carbon Dioxide 22 mmol/L (22-29); Chloride 109 mmol/L (96-108); Creatinine Clr Calc Pharmacy 24.9; Estimated Glomerular Filt Rate 29; Glucose Random 142 mg/dL (60-115); Potassium 4.8 mmol/L (3.3-5.1); Sodium 139 mmol/L (135-145)
[2024-11-08] MEDS: Furosemide 20 MG/2 ML VIAL IVPUSH ×2 (10:32→16:44)
[2024-11-08] MEDS: Insulin Lispro 100 UNIT/ML 3 ML VIAL SUBCUT ×3 (11:49→20:47)
[2024-11-08 11:54] LABS: Glucose, Whole Blood 209 mg/dL (60-115)
--- NOTE | 2024-11-08 13:10 | HO.PM.IMPN ---
Subjective Subjective Date of Service: 11/08/24 Interval History: Seen and evaluated this morning feels little better required higher O2 supplement overnight, desats to 80s with 7L no other events Review of Systems Review of Systems: Yes all other systems are reviewed and are negative Physical Exam Vital Signs: Vital Signs: Last Vital Signs Temp 96.6 F L 11/08/24 12:00 Pulse 86 11/08/24 12:00 Resp 14 11/08/24 12:00 BP 122/56 L 11/08/24 12:00 Pulse Ox 96 11/08/24 12:00 O2 Del Method Nasal Cannula 11/08/24 12:00 O2 Flow Rate 6 11/08/24 12:00 Oxygen Flow Rate 10 11/05/24 15:45 BMI result Body Mass Index 32.6 Const: Other: Constitutional : Awake, interactive, not in distress Neck : Normal inspection, Supple Cardiovascular : RRR, mild JVP, trace lower extremity edema Respiratory : decreased bilateral air entry, basal fine crackles, scattered wheezes Gastrointestinal: soft, lax, Normal bowel sounds, Non tender Skin : Warm, Dry Neurological : Alert & oriented x3, No focal deficit Objective Data Active Medications Acetaminophen (Acetaminophen 325 Mg Tablet) 975 mg PO Q6H PRN PRN Reason: Pain, Mild (Pain Scale 1-3), fever or headache Last Admin: 11/08/24 08:16 Dose: 975 mg Documented By: AMARILIS Albuterol Sulfate (Albuterol Sulfate (0.083%) 2.5 Mg/3 Ml Vial.Neb) 2.5 mg INHALE Q2H PRN PRN Reason: Shortness of Breath/Wheezing Albuterol/Ipratropium (Albuterol/Iprat 2.5/0.5mg 3 Ml Ampul.Neb) 3 ml INHALE RQ4H WHILE AWAKE [facility] Last Admin: 11/08/24 10:53 Dose: 3 ml Documented By: GIUSEPPE Aspirin (Aspirin 81 Mg Tab.Chew) 81 mg PO DAILY [facility] Last Admin: 11/08/24 08:17 Dose: 81 mg Documented By: AMARILIS Atorvastatin Calcium (Atorvastatin Calcium 80 Mg Tablet) 80 mg PO DAILY [facility] Last Admin: 11/08/24 08:17 Dose: 80 mg Documented By: AMARILIS Carvedilol (Carvedilol 3.125 Mg Tablet) 3.125 mg PO BID [facility]; Protocol Last Admin: 11/08/24 08:17 Dose: 3.125 mg Documented By: AMARILIS Empagliflozin (Empagliflozin 10 Mg Tablet) 10 mg PO DAILY [facility] Last Admin: 11/08/24 08:17 Dose: 10 mg Documented By: AMARILIS Enoxaparin Sodium (Enoxaparin Sodium 30 Mg/0.3 Ml Syringe) 30 mg SUBCUT Q24H [facility] Last Admin: 11/08/24 08:17 Dose: 30 mg Documented By: AMARILIS Ferrous Sulfate (Ferrous Sulfate 324 Mg Tablet.Dr) 324 mg PO DAILY [facility] Last Admin: 11/08/24 08:16 Dose: 324 mg Documented By: AMARILIS Furosemide (Furosemide 20 Mg/2 Ml Vial) 20 mg IVPUSH BID@0900,1800 [facility]; Protocol Last Admin: 11/08/24 10:32 Dose: 20 mg Documented By: AMARILIS Glucose (Glucose Gel 15 Gm Gel..Gram.) 15 gm PO Q15M PRN; Protocol PRN Reason: per Hypoglycemia Standing Ord. Dextrose (D10) 250 mls @ 750 mls/hr IV Q15M PRN; Protocol PRN Reason: per Hypoglycemia Standing Ord. Piperacillin Sod/Tazobactam (Sod 2.25 gm/ Sodium Chloride) 50 mls @ 100 mls/hr IV Q6H [facility] Last Infusion: 11/08/24 09:27 Dose: Infused Documented By: AMARILIS Insulin Glargine (Insulin Glargine,Hum.Rec.Anlog 100 Unit/Ml 10 Ml Vial) 20 unit SUBCUT BEDTIME [facility] Last Admin: 11/07/24 21:14 Dose: 20 unit Documented By: VICENTE Insulin Human Lispro (Insulin Lispro 100 Unit/Ml 3 Ml Vial) 0 unit SUBCUT QIDACHS [facility]; Protocol Last Admin: 11/08/24 11:49 Dose: 4 unit Documented By: AMARILIS Isosorbide Mononitrate (Isosorbide Mononitrate 30 Mg Tab.Er.24h) 15 mg PO DAILY [facility]; Protocol Last Admin: 11/08/24 08:16 Dose: 15 mg Documented By: AMARILIS Multivitamins/Vitamin C (Multivitamin Tablet) 1 tab PO DAILY [facility] Last Admin: 11/08/24 08:16 Dose: 1 tab Documented By: AMARILIS Prednisone (Prednisone 20 Mg Tablet) 40 mg PO DAILY [facility] Last Admin: 11/08/24 08:16 Dose: 40 mg Documented By: AMARILIS Sodium Bicarbonate (Sodium Bicarbonate 650 Mg Tablet) 1,300 mg PO BID [facility] Last Admin: 11/08/24 08:16 Dose: 1,300 mg Documented By: AMARILIS Sodium Chloride (0.9 % Sodium Chloride Flush 3 Ml Syringe) 3 ml IVFLUSH QSHIFT [facility] Last Admin: 11/08/24 08:18 Dose: 3 ml Documented By: AMARILIS Tiotropium [place] (Tiotropium [place] 2.5 Mcg 1 Puff/2.5 Mcg Mist.Inhal) 2 puff INHALE RDAILY [facility] Last Admin: 11/08/24 07:39 Dose: 2 puff Documented By: BLASCL Labs 11/06/24 06:18 11/08/24 07:24 Labs: Laboratory Results - last 24 hr 11/07/24 11/07/24 11/08/24 16:34 21:00 07:24 Anion Gap 13 Estim Creat Clear Calc 24.9 Estimated GFR 29 POC Glucose 322 H 268 H Random Glucose 142 H Calcium 8.4 11/08/24 11/08/24 07:47 11:48 Anion Gap Estim Creat Clear Calc Estimated GFR POC Glucose 130 H 209 H Random Glucose Calcium Microbiology Microbiology Results: Microbiology 11/05/24 16:05 Blood Culture - Preliminary Blood - Venous No growth after 48 hours. 11/05/24 16:06 Blood Culture - Preliminary Blood - Venous No growth after 48 hours. Assessment and Plan (1) Metabolic acidosis: Status: Acute (2) Acute and chronic respiratory failure with hypoxia: Status: Acute (3) Acute kidney injury superimposed on CKD: Status: Acute (4) CHF exacerbation: Status: Acute Plan Pt is an 79-year-old male with a PMH significant for?COPD with chronic hypoxic respiratory failure on chronic 3L home O2, hx of ARDS, HFpEF, CAD w/hx of NSTEMI on DAPT, HTN, HLD, and insulin-dependent type 2 diabetes who presents to the ED for evaluation of low blood pressure, dizziness, weakness, and not eating for the past 2-3 days. Pt will be admitted to the hospital for acute on chronic hypoxic respiratory failure in the setting of multifocal pneumonia with sepsis and COPD exacerbation. Acute on chronic hypoxic respiratory failure 2/2 multifocal pneumonia with sepsis and COPD exacerbation CXR showing multifocal pneumonia covered with Zosyn, started 11/05/2024 negative cultures DC steroids now, switch to PO Prednisone Titrate supplemental oxygen to >90 on home 3L Monitor respiratory status MAE on CKD3 with acute metabolic acidosis Creatinine improved to 2.1 Bicarb 22 decrease Sodium bicarb PO bid NEphrology following Follow renal function acute hyperkalemia Kayexalate given, improved follow bmP Acute on chronic HFpEF CXR showing mild fluid overload Give IV lasix Continue carvedilol, furosemide CAD Continue aspirin, clopidogrel, and statin Insulin-dependent type 2 diabetes Continue Jardiance sliding scale insulin, Lantus Diabetic diet Full Code DVT Prophylaxis: Lovenox Pt will require a hospitalization overnight for treatment of?acute on chronic hypoxic respiratory failure in the setting of multifocal pneumonia with sepsis and COPD exacerbation. on IV antibiotics, IV steroids, breathing treatments, and close monitoring of respiratory status. Quality Stroke Does the patient have a stroke diagnosis?: No VTE Prior VTE?: No VTE Risk Level:: Medical - moderate - high VTE Device Contraindication: Treatment Not Indicated VTE Drug Contraindication: N/A - Med Ordered
[2024-11-08 16:25] LABS: Glucose, Whole Blood 222 mg/dL (60-115)
[2024-11-08] MEDS: Sodium Bicarbonate 650 MG TABLET PO (20:40)
[2024-11-08] MEDS: Insulin Glargine,Hum.rec.anlog 100 UNIT/ML 10 ML VIAL 20 UNIT SUBCUT (20:47)
[2024-11-08 20:52] LABS: Glucose, Whole Blood 239 mg/dL (60-115)
[2024-11-09] VITALS (11 sets, daily range): BP systolic 97–165; BP diastolic 67–77; PULSE 67–140; RESP 17–20; TEMP 36.3–36.6; O2SAT 71–96
[2024-11-09] MEDS: Piperacillin Sodium/Tazobactam 2.25 GM in 0.9 % Sodium Chloride 50 ML IV ×4 (03:11→20:44)
[2024-11-09 07:27] LABS: Glucose, Whole Blood 64 mg/dL (60-115)
[2024-11-09] MEDS: Albuterol/Iprat 2.5/0.5MG 3 ML AMPUL.NEB INHALE ×4 (07:37→20:13)
[2024-11-09] MEDS: Tiotropium Bromide 2.5 mcg 1 PUFF/2.5 MCG MIST.INHAL 2 PUFF INHALE (07:37)
[2024-11-09 08:07] LABS: Anion Gap 14 (12-20); Blood Urea Nitrogen 55 mg/dL (9-16); Calcium 8.4 mg/dL (8.4-10.2); Carbon Dioxide 22 mmol/L (22-29); Chloride 108 mmol/L (96-108); Creatinine Clr Calc Pharmacy 27.1; Estimated Glomerular Filt Rate 32; Glucose Random 61 mg/dL (60-115); Potassium 4.4 mmol/L (3.3-5.1); Sodium 140 mmol/L (135-145)
[2024-11-09] MEDS: Empagliflozin 10 MG TABLET PO (08:34)
[2024-11-09] MEDS: predniSONE 20 MG TABLET 40 MG PO (08:34)
[2024-11-09] MEDS: Isosorbide Mononitrate 30 MG TAB.ER.24H 15 MG PO (08:34)
[2024-11-09] MEDS: Aspirin 81 MG TAB.CHEW PO (08:34)
[2024-11-09] MEDS: Sodium Bicarbonate 650 MG TABLET PO (08:34)
[2024-11-09] MEDS: carvediloL 3.125 MG TABLET PO ×2 (08:34→20:44)
[2024-11-09] MEDS: 0.9 % Sodium Chloride Flush 3 ML SYRINGE IVFLUSH ×3 (08:35→20:45)
[2024-11-09] MEDS: Enoxaparin Sodium 30 MG/0.3 ML SYRINGE SUBCUT (08:35)
[2024-11-09] MEDS: Multivitamin TABLET 1 TAB PO (08:35)
[2024-11-09] MEDS: Ferrous Sulfate 324 MG TABLET.DR PO (08:35)
[2024-11-09] MEDS: Atorvastatin Calcium 80 MG TABLET PO (08:35)
--- NOTE | 2024-11-09 09:34 | P.PNNP_ITS ---
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 Presented 11/05 with low blood pressure, dizziness, weakness, no PO intake for 2-3 days, shortness of breath, cough, increased O2 requirements to 4.5L, and vomiting x1. being treated for multifocal pneumonia with sepsis and COPD exacerbation. Nephrology consulted for MAE on CKD3 creatinine 2.52 (1.61 in February 2024), 1L IFV given in ED 11/06 creatinine 2.65, trending down 11/09 is 2.00 K has normalized, 4.4 11/09 serum bicarb 12 on 11/06, 11/05 was 16 he is making urine, 1850mL output over previous 24 hours taking jardiance denies use of NSAIDs he is unable to specify home medications, though states he does think he was taking a water pill torsemide at home as well He denies chest pain, dizziness, shortness of breath states his breathing is much more comfortable today than yesterday- remains on 4.5L O2 via NC he denies abdominal pain, flank pain he denies lower extremity edema Physical Exam 2 Vital Signs: Vital Signs: Last Vital Signs Temp 97.5 F 11/09/24 07:34 Pulse 67 11/09/24 07:39 Resp 20 11/09/24 07:39 BP 165/68 H 11/09/24 07:34 Pulse Ox 94 11/09/24 07:34 O2 Del Method Nasal Cannula 11/09/24 07:34 O2 Flow Rate 4 11/09/24 07:34 Oxygen Flow Rate 10 11/05/24 15:45 BMI result Body Mass Index 32.6 Const: General: no acute distress, alert and awake Resp: Effort & Inspection: normal respiratory effort and able to speak in complete sentences Auscultation: clear to auscultation bilaterally Cardio: Rate: regular rate Rhythm: regular rhythm Heart sounds: S1 normal heart sound present and S2 normal heart sound present GI: Palpation (GI): Soft to palpation and nontender : General: Yes no CVA tenderness Back/Spine/Pelvis: Back: no CVA tenderness Skin: Lesions: no lesions Rashes: no rashes Extrem: General: No edema Objective Data Labs 11/06/24 06:18 11/09/24 07:41 Labs: Laboratory Results - last 24 hr 11/08/24 11/08/24 11/08/24 11:48 16:18 20:44 Sodium Potassium Chloride Carbon Dioxide Anion Gap BUN Creatinine Estim Creat Clear Calc Estimated GFR POC Glucose 209 H 222 H 239 H Random Glucose Calcium 11/09/24 11/09/24 07:22 07:41 Sodium 140 Potassium 4.4 Chloride 108 Carbon Dioxide 22 Anion Gap 14 BUN 55 H Creatinine 2.00 H Estim Creat Clear Calc 27.1 Estimated GFR 32 POC Glucose 64 Random Glucose 61 Calcium 8.4 Microbiology Microbiology Results: Microbiology 11/05/24 16:05 Blood - Venous Blood Culture - Preliminary No growth after 48 hours. 11/05/24 16:06 Blood - Venous Blood Culture - Preliminary No growth after 48 hours. Procedures Date of Service Date of Service: 11/09/24 Assessment & Plan Assessment and plan (1) Acute kidney injury superimposed on CKD: Status: Acute (2) Metabolic acidosis: Status: Acute (3) Pneumonia: Status: Acute Plan MAE on CKD3 likely ATN secondary to hypoperfusion from poor PO intake while taking diuretic at home. Improving, creatinine trending down metabolic acidosis- resolved. Reduce sodium bicard to 650mg PO daily (from BID) recommend continuing current regimen avoid nephrotoxins BP checks regularly, monitor intake and output will continue to follow Discussed with Dr Faith Time Spent With Patient Time: Total time managing care of this patient today ____ minutes. Progress Note: Quality Stroke Does the patient have a stroke diagnosis?: No
[2024-11-09] MEDS: Furosemide 20 MG/2 ML VIAL IVPUSH ×2 (10:43→17:08)
[2024-11-09 12:10] LABS: Glucose, Whole Blood 165 mg/dL (60-115)
[2024-11-09] MEDS: Insulin Lispro 100 UNIT/ML 3 ML VIAL SUBCUT ×3 (12:15→21:26)
--- NOTE | 2024-11-09 13:04 | HO.PM.IMPN ---
Subjective Subjective Date of Service: 11/09/24 Interval History: Seen and evaluated this morning feels little better required higher O2 supplement overnight, desats to 70s with ambulation short distances no other events Review of Systems Review of Systems: Yes all other systems are reviewed and are negative Physical Exam Vital Signs: Vital Signs: Last Vital Signs Temp 98 F 11/09/24 12:00 Pulse 87 11/09/24 12:00 Resp 20 11/09/24 12:00 BP 140/69 H 11/09/24 12:00 Pulse Ox 92 11/09/24 12:00 O2 Del Method Nasal Cannula 11/09/24 12:00 O2 Flow Rate 4 11/09/24 12:00 Oxygen Flow Rate 10 11/05/24 15:45 BMI result Body Mass Index 32.6 Const: Other: Constitutional : Awake, interactive, not in distress Neck : Normal inspection, Supple Cardiovascular : RRR, mild JVP, trace lower extremity edema Respiratory : decreased bilateral air entry, basal fine crackles, no wheezes, on O2 supplement Gastrointestinal: soft, lax, Normal bowel sounds, Non tender Skin : Warm, Dry Neurological : Alert & oriented x3, No focal deficit Objective Data Active Medications Acetaminophen (Acetaminophen 325 Mg Tablet) 975 mg PO Q6H PRN PRN Reason: Pain, Mild (Pain Scale 1-3), fever or headache Last Admin: 11/08/24 08:16 Dose: 975 mg Documented By: AMARILIS Albuterol Sulfate (Albuterol Sulfate (0.083%) 2.5 Mg/3 Ml Vial.Neb) 2.5 mg INHALE Q2H PRN PRN Reason: Shortness of Breath/Wheezing Albuterol/Ipratropium (Albuterol/Iprat 2.5/0.5mg 3 Ml Ampul.Neb) 3 ml INHALE RQ4H WHILE AWAKE [facility] Last Admin: 11/09/24 11:27 Dose: 3 ml Documented By: YASSINE Aspirin (Aspirin 81 Mg Tab.Chew) 81 mg PO DAILY [facility] Last Admin: 11/09/24 08:34 Dose: 81 mg Documented By: LAZARO Atorvastatin Calcium (Atorvastatin Calcium 80 Mg Tablet) 80 mg PO DAILY [facility] Last Admin: 11/09/24 08:35 Dose: 80 mg Documented By: LAZARO Carvedilol (Carvedilol 3.125 Mg Tablet) 3.125 mg PO BID [facility]; Protocol Last Admin: 11/09/24 08:34 Dose: 3.125 mg Documented By: LAZARO Empagliflozin (Empagliflozin 10 Mg Tablet) 10 mg PO DAILY [facility] Last Admin: 11/09/24 08:34 Dose: 10 mg Documented By: LAZARO Enoxaparin Sodium (Enoxaparin Sodium 30 Mg/0.3 Ml Syringe) 30 mg SUBCUT Q24H [facility] Last Admin: 11/09/24 08:35 Dose: 30 mg Documented By: LAZARO Ferrous Sulfate (Ferrous Sulfate 324 Mg Tablet.Dr) 324 mg PO DAILY [facility] Last Admin: 11/09/24 08:35 Dose: 324 mg Documented By: LAZARO Furosemide (Furosemide 20 Mg/2 Ml Vial) 20 mg IVPUSH BID@0900,1800 [facility]; Protocol Last Admin: 11/09/24 10:43 Dose: 20 mg Documented By: LAZARO Comments: Glucose (Glucose Gel 15 Gm Gel..Gram.) 15 gm PO Q15M PRN; Protocol PRN Reason: per Hypoglycemia Standing Ord. Dextrose (D10) 250 mls @ 750 mls/hr IV Q15M PRN; Protocol PRN Reason: per Hypoglycemia Standing Ord. Piperacillin Sod/Tazobactam (Sod 2.25 gm/ Sodium Chloride) 50 mls @ 100 mls/hr IV Q6H [facility] Last Infusion: 11/09/24 11:56 Dose: Infused Documented By: LAZARO Insulin Glargine (Insulin Glargine,Hum.Rec.Anlog 100 Unit/Ml 10 Ml Vial) 15 unit SUBCUT BEDTIME [facility] Insulin Human Lispro (Insulin Lispro 100 Unit/Ml 3 Ml Vial) 0 unit SUBCUT QIDACHS [facility]; Protocol Last Admin: 11/09/24 12:15 Dose: 2 unit Documented By: LAZARO Isosorbide Mononitrate (Isosorbide Mononitrate 30 Mg Tab.Er.24h) 15 mg PO DAILY [facility]; Protocol Last Admin: 11/09/24 08:34 Dose: 15 mg Documented By: LAZARO Multivitamins/Vitamin C (Multivitamin Tablet) 1 tab PO DAILY [facility] Last Admin: 11/09/24 08:35 Dose: 1 tab Documented By: LAZARO Prednisone (Prednisone 20 Mg Tablet) 40 mg PO DAILY [facility] Last Admin: 11/09/24 08:34 Dose: 40 mg Documented By: LAZARO Sodium Bicarbonate (Sodium Bicarbonate 650 Mg Tablet) 650 mg PO DAILY [facility] Sodium Chloride (0.9 % Sodium Chloride Flush 3 Ml Syringe) 3 ml IVFLUSH QSHIFT [facility] Last Admin: 11/09/24 08:35 Dose: 3 ml Documented By: LAZARO Tiotropium Hagaman (Tiotropium Hagaman 2.5 Mcg 1 Puff/2.5 Mcg Mist.Inhal) 2 puff INHALE RDAILY [facility] Last Admin: 11/09/24 07:37 Dose: 2 puff Documented By: GLUKHOY Labs 11/06/24 06:18 11/09/24 07:41 Labs: Laboratory Results - last 24 hr 11/08/24 11/08/24 11/09/24 16:18 20:44 07:22 Anion Gap Estim Creat Clear Calc Estimated GFR POC Glucose 222 H 239 H 64 Random Glucose Calcium 11/09/24 11/09/24 07:41 11:47 Anion Gap 14 Estim Creat Clear Calc 27.1 Estimated GFR 32 POC Glucose 165 H Random Glucose 61 Calcium 8.4 Assessment and Plan (1) Metabolic acidosis: Status: Acute (2) Acute and chronic respiratory failure with hypoxia: Status: Acute (3) Acute kidney injury superimposed on CKD: Status: Acute (4) Pneumonia: Status: Acute Plan Pt is an 79-year-old male with a PMH significant for?COPD with chronic hypoxic respiratory failure on chronic 3L home O2, hx of ARDS, HFpEF, CAD w/hx of NSTEMI on DAPT, HTN, HLD, and insulin-dependent type 2 diabetes who presents to the ED for evaluation of low blood pressure, dizziness, weakness, and not eating for the past 2-3 days. Pt will be admitted to the hospital for acute on chronic hypoxic respiratory failure in the setting of multifocal pneumonia with sepsis and COPD exacerbation. Acute on chronic hypoxic respiratory failure 2/2 multifocal pneumonia with sepsis and CHF, COPD exacerbation dips to 70s% sat with ambulation CXR showed multifocal pneumonia covered with Zosyn, started 11/05/2024 negative cultures Duonebs Q4H PO Prednisone Titrate supplemental oxygen to >90 on home 3L Monitor respiratory status Acute on chronic HFpEF CXR showing mild fluid overload continue IV lasix Continue carvedilol I\O MAE on CKD3 with acute metabolic acidosis Creatinine improved to 2 Bicarb 22 decrease Sodium bicarb PO to daily NEphrology following Follow renal function acute hyperkalemia Kayexalate given, improved follow bmP CAD Continue aspirin, clopidogrel, and statin Insulin-dependent type 2 diabetes Continue Jardiance sliding scale insulin, Lantus Diabetic diet Full Code DVT Prophylaxis: Lovenox Pt will require a hospitalization overnight for treatment of?acute on chronic hypoxic respiratory failure in the setting of multifocal pneumonia with sepsis and COPD exacerbation. on IV antibiotics, IV steroids, breathing treatments, and close monitoring of respiratory status. Quality Stroke Does the patient have a stroke diagnosis?: No VTE Prior VTE?: No VTE Risk Level:: Medical - moderate - high VTE Device Contraindication: Treatment Not Indicated VTE Drug Contraindication: N/A - Med Ordered
[2024-11-09] MEDS: guaiFENesin LA 600 MG TAB.ER.12H PO ×2 (13:18→20:44)
--- NOTE | 2024-11-09 14:29 | MHC.CM.PN ---
Per rounds and EMR review, pt requires continued acute care for acute on chronic respiratory failure. DCP is home with services, pt. in agreement with referral to [facility], and expanded, [facility] is full for PT referrals at this time.
[2024-11-09 16:32] LABS: Glucose, Whole Blood 260 mg/dL (60-115)
[2024-11-09] MEDS: Acetaminophen 325 MG TABLET 975 MG PO (20:44)
[2024-11-09 21:06] LABS: Glucose, Whole Blood 244 mg/dL (60-115)
[2024-11-09] MEDS: Insulin Glargine,Hum.rec.anlog 100 UNIT/ML 10 ML VIAL 15 UNIT SUBCUT (21:26)
[2024-11-10] VITALS (7 sets, daily range): BP systolic 151–166; BP diastolic 58–89; PULSE 67–115; RESP 18–20; TEMP 36.3–36.7; O2SAT 82–100
[2024-11-10] MEDS: Piperacillin Sodium/Tazobactam 2.25 GM in 0.9 % Sodium Chloride 50 ML IV ×2 (03:52→09:34)
[2024-11-10 06:40] LABS: Anion Gap 12 (12-20); Blood Urea Nitrogen 56 mg/dL (9-16); Calcium 7.8 mg/dL (8.4-10.2); Carbon Dioxide 24 mmol/L (22-29); Chloride 104 mmol/L (96-108); Creatinine Clr Calc Pharmacy 24.9; Estimated Glomerular Filt Rate 29; Glucose Random 70 mg/dL (60-115); Potassium 3.9 mmol/L (3.3-5.1); Sodium 136 mmol/L (135-145)
[2024-11-10 06:44] LABS: B Type Natriuretic Peptide 253 pg/mL (<100)
[2024-11-10 07:30] LABS: Glucose, Whole Blood 73 mg/dL (60-115)
[2024-11-10] MEDS: Albuterol/Iprat 2.5/0.5MG 3 ML AMPUL.NEB INHALE ×2 (08:11→12:08)
[2024-11-10] MEDS: Tiotropium Bromide 2.5 mcg 1 PUFF/2.5 MCG MIST.INHAL 2 PUFF INHALE (08:11)
[2024-11-10] MEDS: Multivitamin TABLET 1 TAB PO (09:24)
[2024-11-10] MEDS: Enoxaparin Sodium 30 MG/0.3 ML SYRINGE SUBCUT (09:24)
[2024-11-10] MEDS: guaiFENesin LA 600 MG TAB.ER.12H PO (09:24)
[2024-11-10] MEDS: Sodium Bicarbonate 650 MG TABLET PO (09:24)
[2024-11-10] MEDS: Empagliflozin 10 MG TABLET PO (09:24)
[2024-11-10] MEDS: predniSONE 20 MG TABLET 40 MG PO (09:24)
[2024-11-10] MEDS: Ferrous Sulfate 324 MG TABLET.DR PO (09:24)
[2024-11-10] MEDS: Aspirin 81 MG TAB.CHEW PO (09:24)
[2024-11-10] MEDS: Atorvastatin Calcium 80 MG TABLET PO (09:24)
[2024-11-10] MEDS: Furosemide 20 MG/2 ML VIAL 40 MG IVPUSH (09:25)
[2024-11-10] MEDS: Isosorbide Mononitrate 30 MG TAB.ER.24H 15 MG PO (09:25)
[2024-11-10] MEDS: carvediloL 3.125 MG TABLET PO (09:28)
[2024-11-10] MEDS: 0.9 % Sodium Chloride Flush 3 ML SYRINGE IVFLUSH (09:31)
--- NOTE | 2024-11-10 10:27 | P.PNNP_ITS ---
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 Presented 11/05 with low blood pressure, dizziness, weakness, no PO intake for 2-3 days, shortness of breath, cough, increased O2 requirements to 4.5L, and vomiting x1. being treated for multifocal pneumonia with sepsis and COPD exacerbation. Nephrology consulted for MAE on CKD3 creatinine 2.52 (1.61 in February 2024), 1L IFV given in ED 11/06 creatinine 2.65, trending down 11/09 cr 2.00 11/10 creatinine 2.17 potassium 3.9 serum bicarb 24 he is making urine, 1275mL output over previous 24 hours He denies chest pain, dizziness, shortness of breath states his breathing is comfortable on 5L O2 via NC he denies abdominal pain, flank pain he denies lower extremity edema Physical Exam 2 Vital Signs: Vital Signs: Last Vital Signs Temp 97.7 F 11/10/24 07:37 Pulse 82 11/10/24 08:12 Resp 20 11/10/24 08:12 BP 166/89 H 11/10/24 07:37 Pulse Ox 92 11/10/24 07:37 O2 Del Method Nasal Cannula 11/10/24 07:37 O2 Flow Rate 5 11/10/24 07:37 Oxygen Flow Rate 10 11/05/24 15:45 BMI result Body Mass Index 32.6 Const: General: no acute distress, alert and awake Resp: Effort & Inspection: normal respiratory effort and able to speak in complete sentences Auscultation: crackles (crackles bilateral lower lobes) Cardio: Rate: regular rate Rhythm: regular rhythm Heart sounds: S1 normal heart sound present and S2 normal heart sound present GI: Palpation (GI): Soft to palpation and nontender : General: Yes no CVA tenderness Back/Spine/Pelvis: Back: no CVA tenderness Skin: Lesions: no lesions Rashes: no rashes Extrem: General: No edema Objective Data Labs 11/06/24 06:18 11/10/24 06:14 Labs: Laboratory Results - last 24 hr 11/09/24 11/09/24 11/09/24 11:47 16:18 20:36 Sodium Potassium Chloride Carbon Dioxide Anion Gap BUN Creatinine Estim Creat Clear Calc Estimated GFR POC Glucose 165 H 260 H 244 H Random Glucose Calcium B-Natriuretic Peptide 11/10/24 11/10/24 06:14 07:01 Sodium 136 Potassium 3.9 Chloride 104 Carbon Dioxide 24 Anion Gap 12 BUN 56 H Creatinine 2.17 H Estim Creat Clear Calc 24.9 Estimated GFR 29 POC Glucose 73 Random Glucose 70 Calcium 7.8 L D B-Natriuretic Peptide 253 H Microbiology Microbiology Results: Microbiology 11/05/24 16:05 Blood - Venous Blood Culture - Preliminary No growth after 48 hours. 11/05/24 16:06 Blood - Venous Blood Culture - Preliminary No growth after 48 hours. Procedures Date of Service Date of Service: 11/10/24 Assessment & Plan Assessment and plan (1) Acute kidney injury superimposed on CKD: Status: Acute (2) Metabolic acidosis: Status: Acute (3) Pneumonia: Status: Acute Plan MAE on CKD3 likely ATN secondary to hypoperfusion from poor PO intake while taking diuretic at home. Improving, creatinine trending down; mild bump this a.m. likely due to drop in blood pressure on 11/09 metabolic acidosis- resolved. Will d/c oral bicarbonate. recommend continuing current regimen avoid nephrotoxins BP checks regularly, monitor intake and output Patient should follow up with his regular middle school english teacher outpatient for hospital follow-up upon discharge. Discussed with Dr Faith Time Spent With Patient Time: Total time managing care of this patient today ____ minutes. Progress Note: Quality Stroke Does the patient have a stroke diagnosis?: No
[2024-11-10 11:13] LABS: Glucose, Whole Blood 171 mg/dL (60-115)
[2024-11-10] MEDS: Insulin Lispro 100 UNIT/ML 3 ML VIAL SUBCUT (11:54)
--- NOTE | 2024-11-10 12:10 | PM.DS ---
DS: Providers Provider Date of Service: 11/10/24 Date of admission: 11/05/24 20:03 Date of discharge: 11/10/24 Primary care physician: Elisa Lyman MD Consults: 11/06/24 00:20 Consult to Nephrology Routine Consulting Provider: [facility] Reason for consultation: Metabolic acidosis, acute on chronic kidney disease Has provider been notified: No DS: Diagnosis Discharge Diagnosis (1) Acute kidney injury superimposed on CKD: Status: Acute (2) Metabolic acidosis: Status: Acute (3) Pneumonia: Status: Acute DS: Summary Hospital Course Hospital Course: from initial hpi: 79-year-old male with a PMH significant for?COPD with chronic hypoxic respiratory failure on chronic 3L home O2, hx of ARDS, HFpEF, CAD w/hx of NSTEMI on DAPT, HTN, HLD, and insulin-dependent type 2 diabetes who presents to the ED for evaluation of low blood pressure, dizziness, weakness, and not eating for the past 2-3 days. Patient also has been experiencing SOB, JOSE, cough, and increased oxygen requirements from 3L to 4.5 L. Patient also experienced 1 episode of vomiting yesterday and has had worsening cough since then. Patient reports had similar episode of a ?double? pneumonia 1 year ago in October 2023. Denies chest pain/pressure, palpitations. No fever, chills, abdominal pain. In the ED pt was tachycardic up to 102, tachypneic up to 23, with soft BP as low as 119/36, and desatting to 86% on 10L OxyMask. Labs were significant for leukocytosis of 16.6, creatinine 2.5 to (elevated from 1.61 on 02/25/2024), and BNP 275. VBG with pH 7.29 and bicarb 14. CXR showed patchy infiltrates in left lower and left upper lobes with possible right lower lobe infiltrate. EKG demonstrated normal sinus rhythm without significant ST elevations or depressions. Pt was treated with IVF, DuoNebs, Solu-Medrol, ceftriaxone, and azithromycin. Pt will be admitted to the hospital for acute on chronic hypoxic respiratory failure in the setting of multifocal pneumonia with sepsis and COPD exacerbation. hospital course: Patient was admitted for acute on chronic hypoxic respiratory failure which was multifactorial due to sepsis from pneumonia, acute on chronic diastolic CHF, COPD with acute decompensation. Patient was treated with IV Lasix, Zosyn, steroids and DuoNebs. Symptoms have resolved, patient states he feels back to baseline and has been ambulating with physical therapy. He was still requiring higher levels of oxygen than his previous baseline, 5 L at rest and 8 L on exertion. But is feeling much better and is eager to be discharged home. On discharge will continue torsemide, and have 5 days of cefuroxime and prednisone. For acute kidney injury on CKD 3 with metabolic acidosis was started on oral bicarb and will continue to follow Nephrology, creatinine stable at about 2. For acute hyperkalemia was given Kayexalate and improved. For coronary artery disease was continued on dual antiplatelet and statin. For diabetes was continued on basal bolus insulin. Time Attestation Discharge Coordination Time (in mins): 33 Quality: Safe Use of Opioids Does Pt have an Active Cancer Diagnosis on the Problem List?: No Quality: Stroke Does the patient have a stroke diagnosis?: No Physical Exam Vital Signs: Vital Signs: Last Vital Signs Temp 98.0 F 11/10/24 11:24 Pulse 79 11/10/24 12:09 Resp 20 11/10/24 12:09 BP 152/81 H 11/10/24 11:24 Pulse Ox 95 11/10/24 11:24 O2 Del Method Nasal Cannula 11/10/24 11:24 O2 Flow Rate 5 11/10/24 11:24 Oxygen Flow Rate 10 11/05/24 15:45 BMI result Body Mass Index 32.6 General: AO X 3, no acute distress Resp: CTA bilateral, no accessory muscles used CVS: S1,S2,RRR GI: soft, non tender, non distended Neuro: motor grossly intact, alert Psych: appropriate affect, appropriate insight DS: Data Data Completed and Pending Completed studies during hospitalization [Text1]: Procedures Introduction of Vasopressor into Peripheral Vein, Percutaneous Approach (10/03/23) Labs on day of discharge: Laboratory Results - last 24 hr 11/09/24 11/09/24 11/09/24 11:47 16:18 20:36 Sodium Potassium Chloride Carbon Dioxide Anion Gap BUN Creatinine Estim Creat Clear Calc Estimated GFR POC Glucose 165 H 260 H 244 H Random Glucose Calcium B-Natriuretic Peptide 11/10/24 11/10/24 11/10/24 06:14 07:01 11:02 Sodium 136 Potassium 3.9 Chloride 104 Carbon Dioxide 24 Anion Gap 12 BUN 56 H Creatinine 2.17 H Estim Creat Clear Calc 24.9 Estimated GFR 29 POC Glucose 73 171 H Random Glucose 70 Calcium 7.8 L D B-Natriuretic Peptide 253 H Preliminary micro results at discharge 11/05/24 16:05 Blood Culture - Preliminary Blood - Venous No growth after 48 hours. 11/05/24 16:06 Blood Culture - Preliminary Blood - Venous No growth after 48 hours. Discharge Plan Discharge Anticipated Discharge Date/Time: 11/10/24 12:03 Patient Disposition: Home Health Service Discharge Diagnosis: pna, chf, Referrals: Elisa Lyman MD [Primary Care Provider] - 1 Week Discharge Medications: New prednisone 20 mg Tablet 40 mg PO DAILY Qty: 10 0RF sodium bicarbonate 650 mg Tablet 650 mg PO DAILY Qty: 180 0RF cefuroxime axetil 500 mg tablet 500 mg PO BID Qty: 10 0RF Continued atorvastatin 80 mg tablet 80 mg PO DAILY ferrous sulfate 325 mg (65 mg iron) tablet 325 mg PO DAILY aspirin 81 mg tablet,chewable 1 tab PO DAILY Incruse Ellipta 62.5 mcg/actuation blister with device 1 inh inhalation DAILY Jardiance 10 mg tablet 10 mg PO DAILY insulin aspart U-100 [Novolog FlexPen U-100 Insulin] 100 unit/mL (3 mL) insulin pen See Protocol subcut TIDAC Protocol: Insulin Correction Scale Less than or equal to 110 ---- Give (units): 0 111 to 150 Give (units): 0 151 to 200 Give (units): 2 201 to 250 Give (units): 4 251 to 300 Give (units): 6 301 to 350 Give (units): 8 Greater than 350 Give (units): 10 Call if Blood Glucose > : 350 isosorbide mononitrate 30 mg Tablet Extended Release 24 Hr 15 mg PO DAILY Qty: 15 0RF Protocol: Hold for SBP< HOLD for SBP < : 90 Rx Instructions: Replaces prior dose of 120 mg daily carvedilol 3.125 mg Tablet 3.125 mg PO BID Qty: 60 0RF Protocol: Hold for SBP/HR < HOLD for SBP < : 90 HOLD for HR < : 60 Rx Instructions: Replaces prior dose of 6.25 mg bid nitroglycerin 0.4 mg Tablet, Sublingual 0.4 mg SUBLINGUAL Q5M PRN (Reason: Chest Pain) Rx Instructions: do not exceed 3 doses per episode nystatin 100,000 unit/gram Powder 1 appl TOPICAL BID PRN (Reason: Rash) PreserVision AREDS-2 250-90-40-1 mg capsule 1 cap PO BID insulin glargine [Lantus U-100 Insulin] 100 unit/mL solution 13 unit subcut BEDTIME torsemide 20 mg tablet 10 mg PO DAILY Discharge Orders: Discharge Order (Routine); Ordered 11/10/24 Ordered By: Avery Mario Diet: Advance to usual diet Activity on Discharge: As tolerated Stand Alone Forms: Patient Portal Discharge page Print Language: Turkmen Care Plan Goals: recovery Health Concerns: hypoxia, pna, copd, chf Plan of Treatment: 5 more days ceftin, 5 more days prednisone Assessment: see above
--- NOTE | 2024-11-10 12:12 | P.F2F_ITS ---
Service Date Service Date: 11/10/24 Encounter Date of encounter: 11/10/24 Reasons for Services Signs and symptoms assessed: sob on exertion Reason for shelter: medication management, medication treatment and teach disease management Reason for physical therapy: home safety and mobility, therapeutic exercises and energy conservation Homebound: Leaving the home is medically contraindicated at this time without the asist of a device and/or another person due th the listed conditions above and below. Reason homebound: shortness of breath with minimal effort Certification: Based on the above findings, I certify that this patient is confined to the home and needs intermittent shelter care, physical therapy and/or speech therapy, or continues to need occupational therapy. The patient is under my care, and I have initiated the establishment of the plan of care. The patient will be followed by a physician who will periodically review the plan of care. Time Spent With Patient Time: Total time managing care of this patient today ____ minutes.
--- NOTE | 2024-11-10 13:20 | MHC.CM.PN ---
Second IMM 11/10/24, pt has been medically cleared for DC, he will have home health services from [facility], family to transport home.
== END 2024-11-10 15:53 | disposition home health service (06) | DRG 871 ==
LOC: HO.ED 19:01 → HO.EDOVER 20:15 → HO.IMC 11-06 14:31
PROVIDERS: Nurse Practitioner Family; Student in an Organized Health Care Education/Training Program; Admitting Provider Internal Medicine; Emergency Provider Emergency Medicine; PCP Internal Medicine; Visit Provider Internal Medicine
DX: A41.9 Sepsis, unspecified organism (principal); J18.9 Pneumonia, unspecified organism; J96.21 Acute and chronic respiratory failure with hypoxia; N17.0 Acute kidney failure with tubular necrosis; I13.0 Hypertensive heart and chronic kidney disease with heart failure and stage 1 through stage 4 chronic kidney disease, or unspecified chronic kidney disease; I50.32 Chronic diastolic (congestive) heart failure; J43.9 Emphysema, unspecified; E11.22 Type 2 diabetes mellitus with diabetic chronic kidney disease; I25.10 Atherosclerotic heart disease of native coronary artery without angina pectoris; I25.2 Old myocardial infarction; E87.5 Hyperkalemia; N18.30 Chronic kidney disease, stage 3 unspecified; Z20.822 Contact with and (suspected) exposure to COVID-19; Z99.81 Dependence on supplemental oxygen; Z79.4 Long term (current) use of insulin; Z79.82 Long term (current) use of aspirin; Z79.84 Long term (current) use of oral hypoglycemic drugs; Z79.899 Other long term (current) drug therapy
CPT/HCPCS: 0241U; 36415; 71045; 80048; 80076; 82010; 82803; 82947; 83605; 83880; 84484; 85025; 85610; 87040; 93005; 94640; 97112; 97116; 97162; 99285; J0456; J0696; J1650; J1940; J2543; J2919

== ENCOUNTER → 2024-11-05 15:44 | Outpatient (BNV) | payer OTHER, SELFPAY | PROVIDERS: Admitting Provider Internal Medicine; Emergency Provider Emergency Medicine; Visit Provider Internal Medicine Cardiovascular Disease | DX: R94.31 Abnormal electrocardiogram [ECG] [EKG] (principal) | CPT/HCPCS: 93010 ==

== ENCOUNTER → 2024-11-05 20:03 | Outpatient (BNV) | payer OTHER, SELFPAY | PROVIDERS: Admitting Provider Internal Medicine; Emergency Provider Emergency Medicine; Visit Provider Student in an Organized Health Care Education/Training Program | DX: E87.21 Acute metabolic acidosis (principal); J96.21 Acute and chronic respiratory failure with hypoxia; N17.9 Acute kidney failure, unspecified; N18.30 Chronic kidney disease, stage 3 unspecified; J18.9 Pneumonia, unspecified organism | CPT/HCPCS: 99223; 99232; 99239; G0180 ==

== ENCOUNTER → 2024-11-05 20:03 | Outpatient (BNV) | payer OTHER, SELFPAY | PROVIDERS: Admitting Provider Internal Medicine; Emergency Provider Emergency Medicine; Visit Provider Nurse Practitioner Family | DX: N17.9 Acute kidney failure, unspecified (principal); N18.30 Chronic kidney disease, stage 3 unspecified; E87.21 Acute metabolic acidosis; J18.9 Pneumonia, unspecified organism | CPT/HCPCS: 99222; 99232 ==

== ENCOUNTER 2024-11-25 16:58 | Inpatient (IN) | payer OTHER, SELFPAY ==
[2024-11-25] VITALS (12 sets, daily range): BP systolic 132–196; BP diastolic 55–96; PULSE 90–105; RESP 14–22; TEMP 36.2–36.7; O2SAT 87–93; BMI 34.7; BMI 32.1
--- NOTE | ~2024-11-25 | US_ITS ---
CLINICAL HISTORY: swelling, ?DVT Venous duplex ultrasound right lower extremity Comparison: US/SR - US VENOUS DUPLEX LE BI - 10/09/23 16:59 EST Findings: The visualized deep veins of the right lower extremity are fully compressible with normal Doppler color flow and spectral tracings. The visualized left common femoral vein also appears patent on color and spectral Doppler imaging. No popliteal cyst. IMPRESSION: 1. Negative for right lower extremity deep vein thrombosis. This document has been electronically signed by: Isma Mondragon MD on 11/25/2024 21:14:39
--- NOTE | ~2024-11-25 | CT_ITS ---
CLINICAL HISTORY: continued hypoxia CT chest without contrast Comparison: None Findings: The heart is normal size. There is aortic and pulmonary arterial calcification. The visualized thyroid and mediastinum are otherwise unremarkable. There are changes of pulmonary bullous disease. There is left upper lobe consolidation, possible pneumonia or pulmonary edema.. There is a gallstone with the gallbladder otherwise unremarkable. The upper abdomen is otherwise unremarkable. No acute fractures. Chronic appearing midthoracic vertebral body compression injury. IMPRESSION: 1. 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
--- NOTE | ~2024-11-25 | XR_ITS ---
CLINICAL HISTORY: sob Single view of the chest. COMPARISON: XR chest dated 11/10/24 at 10:09 EST FINDINGS: Normal heart size. Atherosclerotic thoracic aorta. Airspace opacity within the left mid to lower lung. This has worsened since prior imaging. No pleural effusion. No pneumothorax. Rightward curvature of the lower thoracic spine. No acute fracture identified. IMPRESSION: 1. Worsening left mid to lower lung pulmonary opacities suggestive of multifocal pneumonia. This document has been electronically signed by: Gabriel Rizzo MD on 11/25/2024 17:55:49
--- NOTE | 2024-11-25 17:04 | ED_ITS ---
HPI - SOB/Dyspnea General Chief Complaint: Upper Respiratory Symptoms Stated Complaint: sob Time Seen by Provider: 11/25/24 17:01 Source: patient Mode of arrival: EMS Limitations: no limitations History of Present Illness ED Provider: HPI Narrative: 79-year-old male with a PMH significant for?COPD with chronic hypoxic respiratory failure on chronic 3L home O2, hx of ARDS, HFpEF, CAD w/hx of NSTEMI on DAPT, HTN, HLD, and insulin-dependent type 2 diabetes currently patient is using 4 L oxygen patient was admitted and discharged on 11/10 for similar presentation with CHF and COPD patient denied any chest pain comes here for increased shortness of breath since yesterday on EMS arrival patient was saturating 88-89% on 4.5 L no fever has some cough no significant leg swelling patient is still taking torsemide 20 mg daily Related Data Home Medications ?Medication ?Instructions ?Recorded ?Confirmed aspirin 81 mg chewable tablet 1 tab PO DAILY 10/03/23 11/26/24 atorvastatin 80 mg tablet 80 mg PO DAILY 10/03/23 11/26/24 empagliflozin 10 mg tablet 25 mg PO DAILY 10/03/23 11/26/24 (Jardiance) ferrous sulfate 325 mg (65 mg 325 mg PO DAILY 10/03/23 11/26/24 iron) tablet insulin aspart U-100 100 unit/mL See Protocol subcut TIDAC 10/03/23 11/26/24 (3 mL) subcutaneous pen (Novolog FlexPen U-100 Insulin aspart) umeclidinium 62.5 mcg/actuation 1 inh inhalation DAILY 10/03/23 11/26/24 blister powder for inhalation (Incruse Ellipta) nitroglycerin 0.4 mg sublingual 0.4 mg sublingual Q5M PRN Chest 10/29/23 11/26/24 tablet Pain nystatin 100,000 unit/gram topical 1 appl topical BID PRN Rash 10/29/23 11/26/24 powder vit C 250 mg-vit E 90 mg-zinc 40 1 cap PO BID 10/29/23 11/26/24 mg-copper 1 [id number] capsule (PreserVision AREDS-2) insulin glargine 100 unit/mL 13 unit subcut BEDTIME 11/05/24 11/26/24 subcutaneous solution (Lantus U-100 Insulin) torsemide 20 mg tablet 10 mg PO DAILY 11/05/24 11/26/24 Previous Rx's ?Medication ?Instructions ?Recorded carvedilol 3.125 mg tablet 3.125 mg PO BID #60 tabs 11/04/23 isosorbide mononitrate 30 mg 15 mg PO DAILY #15 tabs 11/04/23 tablet,extended release 24 hr sodium bicarbonate 650 mg tablet 650 mg PO DAILY #180 tabs 11/10/24 Allergies Allergy/AdvReac Type Severity Reaction Status Date / Time No Known Allergies Allergy Verified 11/25/24 17:13 Review of Systems 2 Review of Systems: Yes all other systems are reviewed and are negative [facility] Past Medical History Medical History (Updated 11/30/24 @ 00:18 by Rogers Moran MD) LARRY (obstructive sleep apnea) Acute and chronic respiratory failure with hypoxia Acute on chronic heart failure with preserved ejection fraction (HFpEF) Pneumonia Acute non-ST elevation myocardial infarction (NSTEMI) Adult respiratory distress syndrome Hyperlipidemia Hypertension Diabetes mellitus, type 2 Chronic respiratory failure with hypoxia COPD (chronic obstructive pulmonary disease) CKD (chronic kidney disease) CHF (congestive heart failure) Coronary artery disease Surgical History S/P coronary artery stent placement Family History Family History Other Cancer Social History Social History Household Members: Family Housing: House Do you presently have visiting nurse or other home services: No Alcohol intake: never Patient Tobacco Use Status: Former Tobacco user Smoked in Last 30 Days: No Second Hand Smoke Exposure: No Use of substances other than those prescribed or required for medical reasons: No Currently Displaying Signs/Symptoms of Drug Intoxication Withdrawal: No Have you been hit, kicked, punched, or otherwise hurt by someone within the past year? 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 Advance Directives: No Advance Directives Information Provided: No Advance Directives on File: No Do you have a plan to hurt others: No Plan Recently lost weight without trying: No Eating poorly because of decreased appetite: No Nutrition Risks: No Nutritional Risk Poor oral hygiene: No service: No Physical Exam 2 Vital Signs: Vital Signs: Last Vital Signs Temp 97.3 F 11/29/24 23:28 Pulse 87 11/29/24 23:28 Resp 18 11/29/24 23:28 BP 139/65 11/29/24 23:28 Pulse Ox 97 11/29/24 23:28 O2 Del Method Nasal Cannula 11/29/24 23:28 O2 Flow Rate 5 11/29/24 23:28 Oxygen Flow Rate 4 11/25/24 17:05 BMI result Body Mass Index 34.7 Appearance: Alert. Oriented X3. Moderate respiratory distress Eyes: No pallor or icterus ENT: Pharynx normal. Oral Mucosa moist Neck: Normal inspection. Neck supple. CVS: Normal heart rate and rhythm. Pulses normal. Respiratory: Moderate respiratory distress. Equal air entry bilateral, bilateral rales posterior with prolonged expiration Abdomen: Soft and nontender. Bowel sounds are present, no mass palpable, no CVA tenderness Skin: Skin warm and dry. Normal skin color. Normal skin turgor. Extremities:1+ lower extremity edema. No calf tenderness Neuro: Oriented X 3. No motor deficit. No sensory deficit.No cerebellar signs , cranial nerves II-XII intact Medications Administered Generic Name Dose Route Start Last Admin Trade Name Freq PRN Reason Stop Dose Admin Acetaminophen 650 mg 11/25/24 19:44 11/29/24 00:31 Acetaminophen 325 Mg Tablet PO 650 mg Q6H PRN Administration Pain, Mild 1-3,fever,headache Albuterol/Ipratropium 3 ml 11/25/24 20:00 11/29/24 21:36 Albuterol/Iprat 2.5/0.5mg 3 Ml Ampul.Neb INHALE 3 ml RQ4H WHILE AWAKE ANDREW Administration Aspirin 81 mg 11/27/24 09:00 11/29/24 08:08 Aspirin 81 Mg Tab.Chew PO 81 mg DAILY ANDREW Administration Atorvastatin Calcium 80 mg 11/27/24 09:00 11/29/24 08:09 Atorvastatin Calcium 80 Mg Tablet PO 80 mg DAILY ANDREW Administration Carvedilol 3.125 mg 11/26/24 21:00 11/29/24 21:36 Carvedilol 3.125 Mg Tablet PO 3.125 mg BID ANDREW Administration Protocol Ceftriaxone Sodium 1 gm 11/29/24 15:00 11/29/24 16:15 Ceftriaxone Sodium 1 Gm Vial IVPUSH 1 gm Q24H ANDREW Administration Empagliflozin 25 mg 11/27/24 09:00 11/29/24 08:08 Empagliflozin 25 Mg Tablet PO 25 mg DAILY ANDREW Administration Enoxaparin Sodium 40 mg 11/25/24 20:00 11/29/24 19:49 Enoxaparin Sodium 40 Mg/0.4 Ml Syringe SUBCUT 40 mg Q24H ANDREW Administration Ferrous Sulfate 324 mg 11/27/24 09:00 11/29/24 08:10 Ferrous Sulfate 324 Mg Tablet.Dr PO 324 mg DAILY ANDREW Administration Furosemide 40 mg 11/27/24 18:00 11/29/24 17:15 Furosemide 40 Mg/4 Ml Vial IVPUSH 40 mg BID@0900,1800 [facility] Administration Protocol Azithromycin 500 mg/ Sodium 250 mls @ 125 mls/hr 11/29/24 15:00 11/29/24 18:42 Chloride IV Infused Q24H [facility] Infusion Insulin Glargine 5 unit 11/25/24 21:00 11/29/24 21:34 Insulin Glargine,Hum.Rec.Anlog 100 Unit/Ml 10 Ml Vial SUBCUT 5 unit BEDTIME [facility] Administration Insulin Human Lispro 0 unit 11/25/24 21:00 11/29/24 21:35 Insulin Lispro 100 Unit/Ml 3 Ml Vial SUBCUT 2 unit QIDACHS [facility] Administration Protocol Isosorbide Mononitrate 15 mg 11/27/24 09:00 11/29/24 08:10 Isosorbide Mononitrate 30 Mg Tab.Er.24h PO 15 mg DAILY [facility] Administration Protocol Multivitamins/Vitamin C 1 tab 11/26/24 21:00 11/29/24 21:36 Multivitamin Tablet PO 1 tab BID ANDREW Administration Sodium Bicarbonate 650 mg 11/27/24 09:00 11/29/24 08:12 Sodium Bicarbonate 650 Mg Tablet PO 650 mg DAILY ANDREW Administration Sodium Chloride 3 ml 11/26/24 00:00 11/29/24 19:53 0.9 % Sodium Chloride Flush 3 Ml Syringe IVFLUSH 3 ml QSHIFT [facility] Administration Spironolactone 12.5 mg 11/26/24 14:10 11/29/24 08:11 Spironolactone 25 Mg Tablet PO 12.5 mg DAILY ANDREW Administration Protocol Tiotropium [place] 2 puff 11/27/24 09:00 11/29/24 08:10 Tiotropium [place] 2.5 Mcg 1 Puff/2.5 Mcg Mist.Inhal INHALE 2 puff RDAILY ANDREW Administration Discontinued Medications Generic Name Dose Route Start Last Admin Trade Name [place]cadio PRN Reason Stop Dose Admin Albuterol Sulfate 2.5 mg/ 0 mg 11/25/24 17:30 11/25/24 17:47 Albuterol/Ipratropium 3 ml INHALE 11/25/24 17:31 1 dose ONCE ONE Administration Furosemide 20 mg 11/25/24 17:30 11/25/24 17:43 Furosemide 20 Mg/2 Ml Vial IVPUSH 11/25/24 17:31 20 mg ONCE ONE Administration Protocol Furosemide 20 mg 11/25/24 19:28 11/25/24 19:40 Furosemide 20 Mg/2 Ml Vial IVPUSH 11/25/24 19:29 20 mg ONCE ONE Administration Protocol Furosemide 40 mg 11/26/24 09:00 11/27/24 09:53 Furosemide 40 Mg/4 Ml Vial IVPUSH Not Given DAILY ANDREW Protocol Furosemide 20 mg 11/25/24 22:21 11/25/24 22:51 Furosemide 20 Mg/2 Ml Vial IVPUSH 11/25/24 22:22 20 mg ONCE ONE Administration Protocol Albumin Human 100 mls @ 100 mls/hr 11/27/24 13:45 11/27/24 17:27 Kedbumin 25 % IV 11/27/24 15:44 Infused Q1H ANDREW Infusion Medical Decision Making Medical Decision Making [facility] Narrative: Patient's CHF exacerbation with COPD on torsemide will give slow diuresis DuoNeb treatments patient has increased shortness a breath likely from CHF no signs of infection at this time has a elevated BNP likely the cause for increased shortness of breath Differential Diagnosis Differential Diagnoses: The differential diagnosis associated with the presentation includes COPD exacerbation/CHF exacerbation/pneumonia Admission/Observation Consideration of admission/observation: Escalation of care including admission/observation considered Consult Healthcare Provider Management of the patient was discussed with: Hospitalist Lab Data [facility] Lab Attestation statement: I reviewed the patient's lab results. 11/26/24 06:10 11/29/24 07:00 Labs: Lab Results 11/25/24 11/25/24 Range/Units 17:45 17:51 WBC 10.6 (4.8-10.8) X10*3/uL RBC 4.51 L (4.60-5.80) X10*6/uL Hgb 13.1 L (14.0-18.0) g/dl Hct 40.3 L (42.0-52.0) % MCV 89.4 (80.0-98.0) fL MCH 29.0 (27.0-33.0) pg MCHC 32.5 (31.0-36.0) g/dl RDW 15.1 (11.0-16.0) % Plt Count 265 (160-400) X10*3/uL MPV 10.8 (9.4-12.4) fL Immature Gran % (Auto) 0.8 H (0.0-0.4) % Neut % (Auto) 74.2 H (45-73) % Lymph % (Auto) 15.7 L (20-40) % [place] % (Auto) 6.2 (2-11) % Eos % (Auto) 2.3 (0-4) % Baso % (Auto) 0.8 (0-2) % Lymph # (Auto) 1.7 (1.2-4.9) X10*3/uL [place] # (Auto) 0.7 (0.1-1.2) X10*3/uL Eos # (Auto) 0.3 (0.0-0.4) X10*3/uL Baso # (Auto) 0.1 (0.0-0.2) X10*3/uL Abs Immat Gran (auto) 0.08 H (0.00-0.03) X10*3/uL Absolute Neuts (auto) 7.9 (2.0-8.3) x10*3/uL Absolute Nucleated RBC 0.000 (0.0-0.012) X10*3/uL Nucleated RBC % (auto) 0.0 (0.0-0.2) /100WBC PT 14.0 H (10.9-12.4) SEC INR 1.2 H (0.9-1.1) VBG pH 7.33 (7.32-7.43) VBG pCO2 44 mmHg VBG pO2 42 mmHg VBG HCO3 23 (22-26) mmol/L VBG O2 Saturation 63.0 % VBG Base Excess -2.2 mmol/L Sodium 137 (135-145) mmol/L Potassium 4.4 (3.3-5.1) mmol/L Chloride 107 (96-108) mmol/L Carbon Dioxide 20 L (22-29) mmol/L Anion Gap 14 (12-20) BUN 44 H (9-16) mg/dL Creatinine 1.42 H (0.5-1.4) mg/dL Estim Creat Clear Calc 39.4 Estimated GFR 48 Random Glucose 93 (60-115) mg/dL Calcium 8.0 L (8.4-10.2) mg/dL Magnesium 2.2 (1.6-2.6) mg/dL Total Bilirubin 0.5 (0.0-1.0) mg/dL AST 23 (5-37) U/L ALT 16 (0-40) U/L Alkaline Phosphatase 91 (39-117) U/L Troponin I High Sens 34.8 (<3.5-35.0) ng/L B-Natriuretic Peptide 1380 H (<100) pg/mL Total Protein 6.5 (6.5-8.0) g/dL Albumin 2.8 L (3.5-5.0) g/dL Influenza Type A (PCR) NEGATIVE (Negative) Influenza Type B (PCR) NEGATIVE (Negative) RSV RNA Qual (PCR) NEGATIVE (Negative) SARS-CoV-2 RNA (RT-PCR) NEGATIVE (Negative) Independent Interpretation I performed an independent interpretation of an: EKG Interpretation: Normal sinus rhythm heart rate 90 beats per minute normal interval normal axis no acute ST-T changes no acute ischemia Discharge Plan Discharge Clinical Impression: Acute and chronic respiratory failure with hypoxia CHF (congestive heart failure) Qualifiers: Heart failure type: unspecified Heart failure chronicity: unspecified Qualified Code(s): I50.9 - Heart failure, unspecified Patient Disposition: Admitted As Inpatient Interventions: Admission Worksheet (ED) Last Done: 11/25/24 20:44 Discharge Date/Time: 11/25/24 22:29
--- NOTE | 2024-11-25 17:06 | ECG_ITS ---
Test Reason : SOB Blood Pressure : / mmHG Vent. Rate : 090 BPM Atrial Rate : 090 BPM P-R Int : 160 ms QRS Dur : 084 ms QT Int : 372 ms P-R-T Axes : 062 035 028 degrees QTc Int : 455 ms Normal sinus rhythm Low voltage QRS Borderline ECG When compared with ECG of 05-NOV-2024 16:15, T wave inversion now evident in Anterior leads Nonspecific T wave abnormality no longer evident in Lateral leads Referred By: Rogers Moran Electronically Signed By:GE MADDOX MD
[2024-11-25] MEDS: Furosemide 20 MG/2 ML VIAL IVPUSH ×3 (17:43→22:51)
[2024-11-25] MEDS: Albuterol Sulfate 2.5 MG, Albuterol/Iprat 2.5/0.5MG 3 ML 3 ML INHALE (17:47)
[2024-11-25 17:54] LABS: MANUAL DIFF FLAG NO
[2024-11-25 17:55] LABS: Venous Blood Gas Refer to POC result
[2024-11-25 17:57] LABS: VBG Base Excess -2.2 mmol/L; VBG HCO3 23 mmol/L (22-26); VBG pCO2 44 mmHg; VBG pH 7.33 (7.32-7.43); VBG pO2 42 mmHg
[2024-11-25 18:02] LABS: INTERNATIONAL NORM RATIO 1.2 (0.9-1.1)
[2024-11-25 18:13] LABS: Magnesium 2.2 mg/dL (1.6-2.6)
[2024-11-25 18:14] LABS: Alanine Aminotransferase 16 U/L (0-40); Albumin Level 2.8 g/dL (3.5-5.0); Alkaline Phosphatase 91 U/L (39-117); Anion Gap 14 (12-20); Aspartate Amino Transferase 23 U/L (5-37); Bilirubin Total 0.5 mg/dL (0.0-1.0); Blood Urea Nitrogen 44 mg/dL (9-16); Carbon Dioxide 20 mmol/L (22-29); Chloride 107 mmol/L (96-108); Creatinine Clr Calc Pharmacy 39.4; Estimated Glomerular Filt Rate 48; Glucose Random 93 mg/dL (60-115); Potassium 4.4 mmol/L (3.3-5.1); Sodium 137 mmol/L (135-145); Total Protein 6.5 g/dL (6.5-8.0)
[2024-11-25 18:15] LABS: Basophils Absolute Auto 0.1 X10*3/uL (0.0-0.2); Basophils Percent Auto 0.8 % (0-2); Eosinophils Absolute Auto 0.3 X10*3/uL (0.0-0.4); Eosinophils Percent Auto 2.3 % (0-4); Hematocrit 40.3 % (42.0-52.0); Hemoglobin 13.1 g/dl (14.0-18.0); Imm Gran Abs Auto 0.08 X10*3/uL (0.00-0.03); Imm Gran Pct Auto 0.8 % (0.0-0.4); Lymphocytes Absolute Auto 1.7 X10*3/uL (1.2-4.9); Lymphocytes Percent Auto 15.7 % (20-40); Mean Corpuscular HGB Conc 32.5 g/dl (31.0-36.0); Mean Corpuscular Volume 89.4 fL (80.0-98.0); Mean Platelet Volume 10.8 fL (9.4-12.4); Monocytes Absolute Auto 0.7 X10*3/uL (0.1-1.2); Monocytes Percent Auto 6.2 % (2-11); Neutrophils Absolute Auto 7.9 x10*3/uL (2.0-8.3); Neutrophils Percent Auto 74.2 % (45-73); Platelet Count 265 X10*3/uL (160-400); Red Blood Count 4.51 X10*6/uL (4.60-5.80); Red Cell Distribution Width 15.1 % (11.0-16.0); White Blood Count 10.6 X10*3/uL (4.8-10.8)
[2024-11-25 18:19] LABS: B Type Natriuretic Peptide 1380 pg/mL (<100)
[2024-11-25 18:21] LABS: Troponin-I High Sensitivity 34.8 ng/L (<3.5-35.0)
[2024-11-25 18:35] LABS: Influenza A PCR NEGATIVE (Negative); Influenza B PCR NEGATIVE (Negative); Resp Syncy Virus RNA Qual PCR NEGATIVE (Negative); SARS COV2 PCR INHOUSE NEGATIVE (Negative)
--- NOTE | 2024-11-25 19:30 | MHC.EDTECH ---
This tech took over care of pt at 1900,rounded and introduced self to pt,adrián dwyer MD at bedside,emptied 300MLS of yellow urine from urinal, at bedside call bhakta in reach
--- NOTE | 2024-11-25 19:46 | PM.IMHP ---
History of Present Illness Date of Service: 11/25/24 Chief Complaint: Dyspnea This is a 79-year-old male with pertinent history of congestive heart failure with preserved ejection fraction, chronic hypoxemic respiratory failure due to COPD on 4 L supplemental oxygen, coronary artery disease, hypertension, hyperlipidemia, insulin-dependent diabetes mellitus, chronic kidney disease presents to the emergency department for evaluation of dyspnea. Patient states his symptoms started 1 day prior to presentation. He has been having dyspnea which is worse with exertion. Also dyspnea is worse when he lays flat. Patient has to sit up due to shortness of breath. No cough, fever or chills. Patient denies chest pain, palpitations, abdominal pain, changes in urinary or bowel habits. Does endorse lower extremity leg swelling. In the emergency department, imaging with bilateral pulmonary edema and BNP found to be elevated. Patient was initiated on IV diuresis Review of Systems Constitutional: Constitutional: Reports fatigue and Reports malaise Cardiovascular: Cardiovascular: Reports dyspnea on exertion and Reports orthopnea Respiratory: Respiratory: Reports dyspnea on exertion Gastrointestinal: Gastrointestinal: Reports no additional gastrointestinal complaints Genitourinary: Genitourinary: Reports no additional male genitourinary complaints Endocrine: Endocrine: Reports fatigue [facility] Medical History Acute and chronic respiratory failure with hypoxia Acute on chronic heart failure with preserved ejection fraction (HFpEF) Pneumonia Acute non-ST elevation myocardial infarction (NSTEMI) Adult respiratory distress syndrome Hyperlipidemia Hypertension Diabetes mellitus, type 2 Chronic respiratory failure with hypoxia COPD (chronic obstructive pulmonary disease) CKD (chronic kidney disease) CHF (congestive heart failure) Coronary artery disease Family History Other Cancer Surgical History S/P coronary artery stent placement Social History Household Members: Spouse, Family and Children Housing: House Do you presently have visiting nurse or other home services: Yes Alcohol intake: never Patient Tobacco Use Status: Former Tobacco user Smoked in Last 30 Days: No Second Hand Smoke Exposure: No Use of substances other than those prescribed or required for medical reasons: No Advance Directives: Yes Advance Directives Information Provided: No Advance Directives on File: No Do you have a plan to hurt others: No Plan service: No Meds Allergies Allergy/AdvReac Type Severity Reaction Status Date / Time No Known Allergies Allergy Verified 11/25/24 17:13 Home Medications ?Medication ?Instructions ?Recorded ?Confirmed ?Last Taken ?Type aspirin 81 mg chewable tablet 1 tab PO DAILY 10/03/23 11/05/24 11/05/24 History atorvastatin 80 mg tablet 80 mg PO DAILY 10/03/23 11/05/24 11/05/24 History empagliflozin 10 mg tablet 10 mg PO DAILY 10/03/23 11/05/24 11/05/24 History (Jardiance) ferrous sulfate 325 mg (65 mg 325 mg PO DAILY 10/03/23 11/05/24 11/05/24 History iron) tablet insulin aspart U-100 100 unit/mL See Protocol subcut TIDAC 10/03/23 11/05/24 11/05/24 History (3 mL) subcutaneous pen (Novolog FlexPen U-100 Insulin aspart) umeclidinium 62.5 mcg/actuation 1 inh inhalation DAILY 10/03/23 11/05/24 11/05/24 History blister powder for inhalation (Incruse Ellipta) nitroglycerin 0.4 mg sublingual 0.4 mg sublingual Q5M PRN Chest 10/29/23 11/05/24 Unknown History tablet Pain nystatin 100,000 unit/gram topical 1 appl topical BID PRN Rash 10/29/23 11/05/24 Unknown History powder vit C 250 mg-vit E 90 mg-zinc 40 1 cap PO BID 10/29/23 11/05/24 11/05/24 History mg-copper 1 [id number] capsule (PreserVision AREDS-2) insulin glargine 100 unit/mL 13 unit subcut BEDTIME 11/05/24 11/05/24 11/04/24 History subcutaneous solution (Lantus U-100 Insulin) torsemide 20 mg tablet 10 mg PO DAILY 11/05/24 11/05/24 11/05/24 History Physical Exam Vital Signs and Narrative: Vital Signs: Last Vital Signs Temp 98.0 F 11/25/24 19:29 Pulse 91 11/25/24 19:29 Resp 16 11/25/24 19:29 BP 158/72 H 11/25/24 19:29 Pulse Ox 91 L 11/25/24 19:29 O2 Del Method Nasal Cannula 11/25/24 19:29 O2 Flow Rate 4.5 11/25/24 19:29 Oxygen Flow Rate 4 11/25/24 17:05 BMI result Body Mass Index 34.7 Elderly male lying in bed in distress on supplemental oxygen Neck supple Regular rate and rhythm, S1-S2 heard Bilateral crackles appreciated Abdomen soft nontender, no guarding, no rigidity Patient is awake, alert and oriented to self, place, time and person ; no focal motor deficit Psych: Normal mood Bilateral pedal edema Results Labs 11/25/24 17:45 11/25/24 17:45 Labs: Laboratory Results - last 24 hr 11/25/24 11/25/24 17:45 17:51 MCV 89.4 MCH 29.0 MCHC 32.5 RDW 15.1 Plt Count 265 MPV 10.8 Immature Gran % (Auto) 0.8 H Neut % (Auto) 74.2 H Lymph % (Auto) 15.7 L [place] % (Auto) 6.2 Eos % (Auto) 2.3 Baso % (Auto) 0.8 Lymph # (Auto) 1.7 [place] # (Auto) 0.7 Eos # (Auto) 0.3 Baso # (Auto) 0.1 Abs Immat Gran (auto) 0.08 H Absolute Neuts (auto) 7.9 Absolute Nucleated RBC 0.000 Nucleated RBC % (auto) 0.0 PT 14.0 H INR 1.2 H VBG pH 7.33 VBG pCO2 44 VBG pO2 42 VBG HCO3 23 VBG O2 Saturation 63.0 VBG Base Excess -2.2 Anion Gap 14 Estim Creat Clear Calc 39.4 Estimated GFR 48 Random Glucose 93 Calcium 8.0 L Magnesium 2.2 Total Bilirubin 0.5 AST 23 ALT 16 Alkaline Phosphatase 91 Troponin I High Sens 34.8 B-Natriuretic Peptide 1380 H Total Protein 6.5 Albumin 2.8 L Assessment and Plan (1) Acute and chronic respiratory failure with hypoxia: Status: Acute (2) CHF exacerbation: Status: Acute Plan This is a 79-year-old male with pertinent history of congestive heart failure with preserved ejection fraction, chronic hypoxemic respiratory failure due to COPD on 4 L supplemental oxygen, coronary artery disease, hypertension, hyperlipidemia, insulin-dependent diabetes mellitus, chronic kidney disease presents to the emergency department for evaluation of dyspnea. #. Acute on chronic hypoxemic respiratory failure due to decompensation of diastolic heart failure: Will admit patient with supplemental oxygen. Initiating IV diuresis. Strict I's and O's. Low-salt diet. #. CKD stage 3: Creatinine at baseline. Continue to monitor with diuresis #. COPD: No exacerbation during admission. Continue home inhalers #. Coronary artery disease: On dual antiplatelet therapy and statin #. Insulin-dependent diabetes mellitus: Initiating basal plus insulin regimen. On Jardiance #. Hypertension: Continue home antihypertensives Med rec pending DVT prophylaxis: Lovenox Full code Admit as inpatient and will require two night minimum hospital stay for supplemental oxygen, IV diuresis (as above), which is not possible in a lesser acute setting. Quality Stroke Does the patient have a stroke diagnosis?: No VTE Prior VTE?: No VTE Risk Level:: Medical - moderate - high VTE Device Contraindication: Treatment Not Indicated VTE Drug Contraindication: N/A - Med Ordered
[2024-11-25] MEDS: Albuterol/Iprat 2.5/0.5MG 3 ML AMPUL.NEB INHALE (20:01)
--- NOTE | 2024-11-25 20:17 | MHC.EDTECH ---
Emptied 350MLS of yellow urine from urinal
--- NOTE | 2024-11-25 20:31 | MHC.EDTECH ---
Placed a [place] Cath on patient,pt tolerated well,belongings list completed,copy placed in chart,vitals taken,pts O2 sats dropped to 87%,RN at bedside,
--- NOTE | 2024-11-25 20:46 | PC.NURSE ---
This contract technical writer assumed care of this Pt at 1900. Pt Pt from home, came in for increase SOB sob since yesterday, hx?COPD with on chronic 3L home O2, recently increased O2 to 4L via [place]. SpO2 89%, lung sounds crackles to the bases. BLL swelling noted. Pt A&Ox3, Pt reports he uses scoter at home to get around. Pt destated to 86% while repositioning, Pt is a mouth breather, NC changed to oxymask with improvement to 92%.
--- NOTE | 2024-11-25 21:46 | MHC.EDTECH ---
[place] Cath fell off,emptied 400MLS from bag,patient wants to use urinal at this time,POC taken and is 135,RN made aware
[2024-11-25 21:49] LABS: Glucose, Whole Blood 135 mg/dL (60-115)
[2024-11-25] MEDS: Enoxaparin Sodium 40 MG/0.4 ML SYRINGE SUBCUT (21:56)
[2024-11-25] MEDS: Insulin Glargine,Hum.rec.anlog 100 UNIT/ML 10 ML VIAL SUBCUT (21:57)
[2024-11-25] MEDS: 0.9 % Sodium Chloride Flush 3 ML SYRINGE IVFLUSH (22:54)
--- NOTE | 2024-11-25 23:00 | PC.NURSE ---
Upon arrival to floor, pt on 7L Oxymask, satting at 82%. Dr. Canela made aware, New orders placed.
[2024-11-26] VITALS (10 sets, daily range): BP systolic 141–157; BP diastolic 60–72; PULSE 77–85; RESP 18–20; TEMP 36–36.3; O2SAT 90–96
[2024-11-26] MEDS: Acetaminophen 325 MG TABLET 650 MG PO ×2 (02:21→16:32)
[2024-11-26 06:19] LABS: Basophils Absolute Auto 0.1 X10*3/uL (0.0-0.2); Basophils Percent Auto 0.9 % (0-2); Eosinophils Absolute Auto 0.2 X10*3/uL (0.0-0.4); Eosinophils Percent Auto 2.1 % (0-4); Hematocrit 40.9 % (42.0-52.0); Hemoglobin 13.3 g/dl (14.0-18.0); Imm Gran Abs Auto 0.04 X10*3/uL (0.00-0.03); Imm Gran Pct Auto 0.5 % (0.0-0.4); Lymphocytes Absolute Auto 1.3 X10*3/uL (1.2-4.9); Lymphocytes Percent Auto 16.3 % (20-40); Mean Corpuscular HGB Conc 32.5 g/dl (31.0-36.0); Mean Corpuscular Hemoglobin 28.9 pg (27.0-33.0); Mean Corpuscular Volume 88.9 fL (80.0-98.0); Monocytes Absolute Auto 0.5 X10*3/uL (0.1-1.2); Monocytes Percent Auto 5.9 % (2-11); Neutrophils Percent Auto 74.3 % (45-73); Red Cell Distribution Width 15.1 % (11.0-16.0)
[2024-11-26 06:30] LABS: Anion Gap 16 (12-20); Blood Urea Nitrogen 43 mg/dL (9-16); Calcium 8.5 mg/dL (8.4-10.2); Carbon Dioxide 18 mmol/L (22-29); Chloride 108 mmol/L (96-108); Creatinine Clr Calc Pharmacy 34.2; Estimated Glomerular Filt Rate 43; Glucose Random 100 mg/dL (60-115); Potassium 4.7 mmol/L (3.3-5.1); Sodium 137 mmol/L (135-145)
[2024-11-26 07:49] LABS: Glucose, Whole Blood 107 mg/dL (60-115)
[2024-11-26] MEDS: Albuterol/Iprat 2.5/0.5MG 3 ML AMPUL.NEB INHALE ×4 (07:57→19:31)
[2024-11-26] MEDS: 0.9 % Sodium Chloride Flush 3 ML SYRINGE IVFLUSH ×2 (08:30→14:53)
[2024-11-26] MEDS: Furosemide 40 MG/4 ML VIAL IVPUSH (08:30)
--- NOTE | 2024-11-26 10:08 | P.CONCA_ITS ---
History of Present Illness History of Present Illness Date of Service: 11/26/24 Requesting physician: Amanda Saul Consult reason: congestive heart failure Chief complaint: Dyspnea Narrative: I was consulted to see Misael in cardiology consultation today for decompensated congestive heart failure. He is a pleasant 79-year-old male with prior history of diastolic heart failure, COPD with chronic respiratory failure on home oxygen, CAD, chronic kidney disease, diabetes. 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 Said over the last couple days he started noticing his right leg swelling and yesterday got severely short of breath and came to the hospital. He was noted to be in decompensated congestive heart failure with significantly elevated BNP compared to his baseline at 15:00. Patient says compared to yesterday is feeling better today after diuresis. Negative balance of 1700 cc. Patient was torsemide 10 mg currently after reduced dose as well as on Jardiance 10 mg daily. He said he has been taking all his medications regularly. Denies any chest pain. Denies any prolonged palpitation irregular heartbeat. No upper respiratory low respiratory symptoms. Review of Systems 2 Constitutional: Constitutional: Reports fatigue Eyes: Eyes: Reports no additional eye complaints Cardiovascular: Cardiovascular: Denies chest pain, Reports leg edema, Denies lightheadedness, Denies palpitations, Reports dyspnea on exertion and Reports orthopnea Respiratory: Respiratory: Denies cough and Reports dyspnea on exertion Gastrointestinal: Gastrointestinal: Reports no additional gastrointestinal complaints Genitourinary: Genitourinary: Reports no additional male genitourinary complaints Musculoskeletal: Musculoskeletal: Reports no additional musculoskeletal complaints Psychiatric: Psychiatric: Reports no additional psychiatric complaints Endocrine: Endocrine: Reports fatigue and Denies palpitations [facility] Past Medical History Medical History Acute and chronic respiratory failure with hypoxia Acute on chronic heart failure with preserved ejection fraction (HFpEF) Pneumonia Acute non-ST elevation myocardial infarction (NSTEMI) Adult respiratory distress syndrome Hyperlipidemia Hypertension Diabetes mellitus, type 2 Chronic respiratory failure with hypoxia COPD (chronic obstructive pulmonary disease) CKD (chronic kidney disease) CHF (congestive heart failure) Coronary artery disease Family History Family History Other Cancer Surgical History Surgical History S/P coronary artery stent placement Social History Social History Household Members: Family Housing: House Do you presently have visiting nurse or other home services: No Alcohol intake: never Patient Tobacco Use Status: Former Tobacco user Smoked in Last 30 Days: No Second Hand Smoke Exposure: No Use of substances other than those prescribed or required for medical reasons: No Currently Displaying Signs/Symptoms of Drug Intoxication Withdrawal: No Have you been hit, kicked, punched, or otherwise hurt by someone within the past year? 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 Advance Directives: No Advance Directives Information Provided: No Advance Directives on File: No Do you have a plan to hurt others: No Plan Recently lost weight without trying: No Eating poorly because of decreased appetite: No Nutrition Risks: No Nutritional Risk Poor oral hygiene: No service: No Meds Allergies Allergy/AdvReac Type Severity Reaction Status Date / Time No Known Allergies Allergy Verified 11/25/24 17:13 Active Medications: Current Medications Acetaminophen (Acetaminophen 325 Mg Tablet) 650 mg PO Q6H PRN PRN Reason: Pain, Mild 1-3,fever,headache Last Admin: 11/26/24 02:21 Dose: 650 mg Albuterol/Ipratropium (Albuterol/Iprat 2.5/0.5mg 3 Ml Ampul.Neb) 3 ml INHALE Q4H PRN PRN Reason: Shortness of Breath/Wheezing Albuterol/Ipratropium (Albuterol/Iprat 2.5/0.5mg 3 Ml Ampul.Neb) 3 ml INHALE RQ4H WHILE AWAKE [facility] Last Admin: 11/26/24 07:57 Dose: 3 ml Calcium Carbonate (Calcium Carbonate 750 Mg Tab.Chew) 750 mg PO Q4H PRN PRN Reason: Heartburn Enoxaparin Sodium (Enoxaparin Sodium 40 Mg/0.4 Ml Syringe) 40 mg SUBCUT Q24H [facility] Last Admin: 11/25/24 21:56 Dose: 40 mg Furosemide (Furosemide 40 Mg/4 Ml Vial) 40 mg IVPUSH DAILY [facility]; Protocol Last Admin: 11/26/24 08:30 Dose: 40 mg Glucose (Glucose Gel 15 Gm Gel..Gram.) 15 gm PO Q15M PRN; Protocol PRN Reason: per Hypoglycemia Standing Ord. Dextrose (D10) 250 mls @ 750 mls/hr IV Q15M PRN; Protocol PRN Reason: per Hypoglycemia Standing Ord. Insulin Glargine (Insulin Glargine,Hum.Rec.Anlog 100 Unit/Ml 10 Ml Vial) 5 unit SUBCUT BEDTIME [facility] Last Admin: 11/25/24 21:57 Dose: 5 unit Insulin Human Lispro (Insulin Lispro 100 Unit/Ml 3 Ml Vial) 0 unit SUBCUT QIDACHS [facility]; Protocol Last Admin: 11/26/24 08:03 Dose: Not Given Magnesium Hydroxide (Milk Of Magnesia 30 Ml Oral.Susp) 30 ml PO DAILY PRN PRN Reason: Constipation Melatonin (Melatonin 3 Mg Tablet) 6 mg PO BEDTIME PRN PRN Reason: Insomnia Ondansetron HCl (Ondansetron Hcl 4 Mg/2 Ml Vial) 4 mg IVPUSH Q8H PRN PRN Reason: Nausea and Vomiting Sodium Chloride (0.9 % Sodium Chloride Flush 3 Ml Syringe) [address] [facility] Last Admin: 11/26/24 08:30 Dose: 3 ml Home Medications ?Medication ?Instructions ?Recorded ?Confirmed ?Last Taken ?Type aspirin 81 mg chewable tablet 1 tab PO DAILY 10/03/23 11/05/24 11/05/24 History atorvastatin 80 mg tablet 80 mg PO DAILY 10/03/23 11/05/24 11/05/24 History empagliflozin 10 mg tablet 10 mg PO DAILY 10/03/23 11/05/24 11/05/24 History (Jardiance) ferrous sulfate 325 mg (65 mg 325 mg PO DAILY 10/03/23 11/05/24 11/05/24 History iron) tablet insulin aspart U-100 100 unit/mL See Protocol subcut TIDAC 10/03/23 11/05/24 11/05/24 History (3 mL) subcutaneous pen (Novolog FlexPen U-100 Insulin aspart) umeclidinium 62.5 mcg/actuation 1 inh inhalation DAILY 10/03/23 11/05/2411/05/24 History blister powder for inhalation (Incruse Ellipta) nitroglycerin 0.4 mg sublingual 0.4 mg sublingual Q5M PRN Chest 10/29/23 11/05/24 Unknown History tablet Pain nystatin 100,000 unit/gram topical 1 appl topical BID PRN Rash 10/29/23 11/05/24 Unknown History powder vit C 250 mg-vit E 90 mg-zinc 40 1 cap PO BID 10/29/23 11/05/24 11/05/24 History mg-copper 1 [id number] capsule (PreserVision AREDS-2) insulin glargine 100 unit/mL 13 unit subcut BEDTIME 11/05/24 11/05/24 11/04/24 History subcutaneous solution (Lantus U-100 Insulin) torsemide 20 mg tablet 10 mg PO DAILY 11/05/24 11/05/24 11/05/24 History Physical Exam 2 Vital Signs: Vital Signs: Last Vital Signs Temp 97.3 F 11/26/24 07:17 Pulse 78 11/26/24 07:57 Resp 18 11/26/24 07:57 BP 157/65 H 11/26/24 08:30 Pulse Ox 92 11/26/24 07:17 O2 Del Method Oxymask 11/26/24 07:17 O2 Flow Rate 6.0 11/26/24 07:17 Oxygen Flow Rate 4 11/25/24 17:05 BMI result Body Mass Index 32.1 Const: General: cooperative, alert, awake and in distress mild and respiratory Nutritional Appearance: overweight Orientation/consciousness: patient oriented x3 HEENT: Head: Yes normocephalic and Yes atraumatic Neck: Neck: Yes trachea midline, Yes supple and Yes JVD Resp: Effort & Inspection: normal respiratory effort Auscultation: crackles (Predominantly left base) Cardio: Jugular venous distension: JVD Palpation: normal PMI Rate: r egular rate Rhythm: regular rhythm Heart sounds: S1 normal heart sound present, S2 normal heart sound present, no click, no gallops and no murmurs GI: Auscultation: normal bowel sounds Skin: General skin exam: no rashes or lesions noted Neuro: General: patient oriented x3 and no focal motor deficits Extrem: General: No clubbing, No cyanosis and Yes edema Objective Labs and Meds 11/26/24 06:10 11/26/24 06:10 Lab results: Laboratory Results - last 24 hr 11/25/24 11/25/24 11/25/24 17:45 17:51 21:45 WBC 10.6 RBC 4.51 L Hgb 13.1 L Hct 40.3 L MCV 89.4 MCH 29.0 MCHC 32.5 RDW 15.1 Plt Count 265 MPV 10.8 Immature Gran % (Auto) 0.8 H Neut % (Auto) 74.2 H Lymph % (Auto) 15.7 L [place] % (Auto) 6.2 Eos % (Auto) 2.3 Baso % (Auto) 0.8 Lymph # (Auto) 1.7 [place] # (Auto) 0.7 Eos # (Auto) 0.3 Baso # (Auto) 0.1 Abs Immat Gran (auto) 0.08 H Absolute Neuts (auto) 7.9 Absolute Nucleated RBC 0.000 Nucleated RBC % (auto) 0.0 PT 14.0 H INR 1.2 H VBG pH 7.33 VBG pCO2 44 VBG pO2 42 VBG HCO3 23 VBG O2 Saturation 63.0 VBG Base Excess -2.2 Sodium 137 Potassium 4.4 Chloride 107 Carbon Dioxide 20 L Anion Gap 14 BUN 44 H Creatinine 1.42 H Estim Creat Clear Calc 39.4 Estimated GFR 48 POC Glucose 135 H Random Glucose 93 Calcium 8.0 L Magnesium 2.2 Total Bilirubin 0.5 AST 23 ALT 16 Alkaline Phosphatase 91 Troponin I High Sens 34.8 B-Natriuretic Peptide 1380 H Total Protein 6.5 Albumin 2.8 L Procalcitonin Influenza Type A (PCR) NEGATIVE Influenza Type B (PCR) NEGATIVE RSV RNA Qual (PCR) NEGATIVE SARS-CoV-2 RNA (RT-PCR) NEGATIVE 11/26/24 11/26/24 06:10 07:22 WBC 8.0 RBC 4.60 Hgb 13.3 L Hct 40.9 L MCV 88.9 MCH 28.9 MCHC 32.5 RDW 15.1 Plt Count TNP MPV Not Reportable Immature Gran % (Auto) 0.5 H Neut % (Auto) 74.3 H Lymph % (Auto) 16.3 L [place] % (Auto) 5.9 Eos % (Auto) 2.1 Baso % (Auto) 0.9 Lymph # (Auto) 1.3 [place] # (Auto) 0.5 Eos # (Auto) 0.2 Baso # (Auto) 0.1 Abs Immat Gran (auto) 0.04 H Absolute Neuts (auto) 6.0 Absolute Nucleated RBC 0.000 Nucleated RBC % (auto) 0.0 PT INR VBG pH VBG pCO2 VBG pO2 VBG HCO3 VBG O2 Saturation VBG Base Excess Sodium 137 Potassium 4.7 Chloride 108 Carbon Dioxide 18 L Anion Gap 16 BUN 43 H Creatinine 1.57 H Estim Creat Clear Calc 34.2 Estimated GFR 43 POC Glucose 107 Random Glucose 100 Calcium 8.5 D Magnesium Total Bilirubin AST ALT Alkaline Phosphatase Troponin I High Sens B-Natriuretic Peptide Total Protein Albumin Procalcitonin 0.10 Influenza Type A (PCR) Influenza Type B (PCR) RSV RNA Qual (PCR) SARS-CoV-2 RNA (RT-PCR) Assessment and Plan (1) CHF exacerbation: Status: Acute Acute congestive heart failure in this elderly gentleman most likely related to recent reduction outpatient diuretic dose. Clinically appears to be still fluid overloaded. Diuresing well. Continue IV diuresis with Lasix. Strict intake and output chart needs to be pursued. Continue monitor renal function as well as BNP tomorrow. Also add spironolactone 12.5 mg to his regimen and follow-up potassium level tomorrow. Continue Jardiance therapy. Continue supportive care for pulmonary with bronchodilators therapy. Consider renal duplex to evaluate for renal artery stenosis. Aggressive blood pressure control, add spironolactone as above. Will follow with you Procedures Date of Service Date of Service: 11/26/24
--- NOTE | 2024-11-26 11:25 | MHC.CM.PN ---
CM ASSESSMENT COMPLETED W/ DAUGHTER/HCP/BOARD OPERATOR ADRIAN @ [phone]. IMM DELIVERED. PATIENT LIVES IN A HOME W/ , OTHER FAMILY MEMBERS AND DAUGHTER. 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 USES [employer] FOR LONG DISTANCES. ACTIVE W/ [facility]. RETURN REFERRAL SENT VIA [facility]. PCP DR MARTINEZ HCP ON FILE AND VERIFIED. DP: GOAL IS HOME, RESUME SERVICES. DAUGHTER TO TRANSPORT. CM WILL CONTINUE TO FOLLOW.
[2024-11-26 11:51] LABS: Glucose, Whole Blood 279 mg/dL (60-115)
[2024-11-26] MEDS: Insulin Lispro 100 UNIT/ML 3 ML VIAL SUBCUT ×2 (12:17→16:31)
--- NOTE | 2024-11-26 13:41 | HO.WOUND ---
Wound Consult: Initial 79yr old?Male admitted to [facility] on 11/25/24 - See progress notes and H&P for detailed history.? Wound consult placed for bilateral lower legs.? Patient agreeable to assessment and photo documentation.? Patient denies wounds at this time - he denies itching and or any symptoms. He reports his PCP told him the dry skin was fungal dermatitis. The lower legs are assessed for dry flaking skin - no s/s of fungal rash / dermatitis noted at this time. Recommend routine cleansing and lotion application. No new topical recommendations needed at this time.
--- NOTE | 2024-11-26 13:44 | HO.PM.IMPN ---
Subjective Subjective Date of Service: 11/26/24 Interval History: seen and examined this morning follow up for chf breathing improving, has peed a lot RLE swelling improving; ongoing cough Review of Systems Review of Systems: Yes all other systems are reviewed and are negative Constitutional Constitutional: Denies chills and Denies fever(s) Cardiovascular Cardiovascular: Denies chest pain, Denies palpitations and Reports dyspnea Respiratory Respiratory: Reports cough and Reports dyspnea Endocrine Endocrine: Denies palpitations Physical Exam Vital Signs: Vital Signs: Last Vital Signs Temp 97.3 F 11/26/24 07:17 Pulse 77 11/26/24 12:29 Resp 18 11/26/24 12:29 BP 157/65 H 11/26/24 08:30 Pulse Ox 92 11/26/24 07:17 O2 Del Method Oxymask 11/26/24 07:17 O2 Flow Rate 6.0 11/26/24 07:17 Oxygen Flow Rate 4 11/25/24 17:05 BMI result Body Mass Index 32.1 Const: General: cooperative, no acute distress, alert and awake Nutritional Appearance: overweight Orientation/consciousness: patient oriented x3 Resp: Other: basilar rales Effort & Inspection: normal respiratory effort, able to speak in complete sentences, no respiratory distress and no use of accessory muscles Cardio: Rate: regular rate GI: Inspection: No distended Palpation (GI): Soft to palpation Neuro: General: patient oriented x3, moves all extremities and CN's II-XI intact bilaterally Extrem: Other: RLE edema1+ no erythema Objective Data Active Medications Acetaminophen (Acetaminophen 325 Mg Tablet) 650 mg PO Q6H PRN PRN Reason: Pain, Mild 1-3,fever,headache Last Admin: 11/26/24 02:21 Dose: 650 mg Documented By: WILMER Albuterol/Ipratropium (Albuterol/Iprat 2.5/0.5mg 3 Ml Ampul.Neb) 3 ml INHALE Q4H PRN PRN Reason: Shortness of Breath/Wheezing Albuterol/Ipratropium (Albuterol/Iprat 2.5/0.5mg 3 Ml Ampul.Neb) 3 ml INHALE RQ4H WHILE AWAKE [facility] Last Admin: 11/26/24 12:29 Dose: 3 ml Documented By: DENISE Calcium Carbonate (Calcium Carbonate 750 Mg Tab.Chew) 750 mg PO Q4H PRN PRN Reason: Heartburn Enoxaparin Sodium (Enoxaparin Sodium 40 Mg/0.4 Ml Syringe) 40 mg SUBCUT Q24H [facility] Last Admin: 11/25/24 21:56 Dose: 40 mg Documented By: ESSENCE Furosemide (Furosemide 40 Mg/4 Ml Vial) 40 mg IVPUSH DAILY [facility]; Protocol Last Admin: 11/26/24 08:30 Dose: 40 mg Documented By: ROMY Glucose (Glucose Gel 15 Gm Gel..Gram.) 15 gm PO Q15M PRN; Protocol PRN Reason: per Hypoglycemia Standing Ord. Dextrose (D10) 250 mls @ 750 mls/hr IV Q15M PRN; Protocol PRN Reason: per Hypoglycemia Standing Ord. Insulin Glargine (Insulin Glargine,Hum.Rec.Anlog 100 Unit/Ml 10 Ml Vial) 5 unit SUBCUT BEDTIME [facility] Last Admin: 11/25/24 21:57 Dose: 5 unit Documented By: ESSENCE Insulin Human Lispro (Insulin Lispro 100 Unit/Ml 3 Ml Vial) 0 unit SUBCUT QIDACHS [facility]; Protocol Last Admin: 11/26/24 12:17 Dose: 6 unit Documented By: ROMY Magnesium Hydroxide (Milk Of Magnesia 30 Ml Oral.Susp) 30 ml PO DAILY PRN PRN Reason: Constipation Melatonin (Melatonin 3 Mg Tablet) 6 mg PO BEDTIME PRN PRN Reason: Insomnia Ondansetron HCl (Ondansetron Hcl 4 Mg/2 Ml Vial) 4 mg IVPUSH Q8H PRN PRN Reason: Nausea and Vomiting Sodium Chloride (0.9 % Sodium Chloride Flush 3 Ml Syringe) 3 ml IVFLUSH QSHIFT [facility] Last Admin: 11/26/24 08:30 Dose: 3 ml Documented By: ROMY Labs 11/26/24 06:10 11/26/24 06:10 Labs: Laboratory Results - last 24 hr 11/25/24 11/25/24 11/25/24 17:45 17:51 21:45 MCV 89.4 MCH 29.0 MCHC 32.5 RDW 15.1 Plt Count 265 MPV 10.8 Immature Gran % (Auto) 0.8 H Neut % (Auto) 74.2 H Lymph % (Auto) 15.7 L [place] % (Auto) 6.2 Eos % (Auto) 2.3 Baso % (Auto) 0.8 Lymph # (Auto) 1.7 [place] # (Auto) 0.7 Eos # (Auto) 0.3 Baso # (Auto) 0.1 Abs Immat Gran (auto) 0.08 H Absolute Neuts (auto) 7.9 Absolute Nucleated RBC 0.000 Nucleated RBC % (auto) 0.0 PT 14.0 H INR 1.2 H VBG pH 7.33 VBG pCO2 44 VBG pO2 42 VBG HCO3 23 VBG O2 Saturation 63.0 VBG Base Excess -2.2 Anion Gap 14 Estim Creat Clear Calc 39.4 Estimated GFR 48 POC Glucose 135 H Random Glucose 93 Calcium 8.0 L Magnesium 2.2 Total Bilirubin 0.5 AST 23 ALT 16 Alkaline Phosphatase 91 Troponin I High Sens 34.8 B-Natriuretic Peptide 1380 H Total Protein 6.5 Albumin 2.8 L Procalcitonin Influenza Type A (PCR) NEGATIVE Influenza Type B (PCR) NEGATIVE RSV RNA Qual (PCR) NEGATIVE SARS-CoV-2 RNA (RT-PCR) NEGATIVE 11/26/24 11/26/24 11/26/24 06:10 07:22 11:43 MCV 88.9 MCH 28.9 MCHC 32.5 RDW 15.1 Plt Count TNP MPV Not Reportable Immature Gran % (Auto) 0.5 H Neut % (Auto) 74.3 H Lymph % (Auto) 16.3 L [place] % (Auto) 5.9 Eos % (Auto) 2.1 Baso % (Auto) 0.9 Lymph # (Auto) 1.3 [place] # (Auto) 0.5 Eos # (Auto) 0.2 Baso # (Auto) 0.1 Abs Immat Gran (auto) 0.04 H Absolute Neuts (auto) 6.0 Absolute Nucleated RBC 0.000 Nucleated RBC % (auto) 0.0 PT INR VBG pH VBG pCO2 VBG pO2 VBG HCO3 VBG O2 Saturation VBG Base Excess Anion Gap 16 Estim Creat Clear Calc 34.2 Estimated GFR 43 POC Glucose 107 279 H Random Glucose 100 Calcium 8.5 D Magnesium Total Bilirubin AST ALT Alkaline Phosphatase Troponin I High Sens B-Natriuretic Peptide Total Protein Albumin Procalcitonin 0.10 Influenza Type A (PCR) Influenza Type B (PCR) RSV RNA Qual (PCR) SARS-CoV-2 RNA (RT-PCR) Assessment and Plan (1) CHF (congestive heart failure): Status: Acute Plan This is a 79-year-old male with pertinent history of congestive heart failure with preserved ejection fraction, chronic hypoxemic respiratory failure due to COPD on 4 L supplemental oxygen, coronary artery disease, hypertension, hyperlipidemia, insulin-dependent diabetes mellitus, chronic kidney disease presents to the emergency department for evaluation of dyspnea. Acute on chronic hypoxemic respiratory failure due to decompensated diastolic heart failure: negative nearly 2L thus far continue IV lasix strict I's and O's. Low-salt diet. continue MAAR lr seen by cardiology, rec to start aldactone follow BMP, BNP CKD stage 3: with chronic metabolic acidosis Creatinine at baseline. Continue to monitor with diuresis continue baseline sodium bicarb COPD: No exacerbation during admission. Continue home inhalers Coronary artery disease: On dual antiplatelet therapy, statin, coreg, imdur Insulin-dependent diabetes mellitus: continue low dose lantus and SSI, uptitrate lantus as needed DVT prophylaxis: Lovenox Full code requires ongoing inpatient stay for supplemental oxygen, IV diuresis (as above), which is not possible in a lesser acute setting. Quality Stroke Does the patient have a stroke diagnosis?: No VTE Prior VTE?: No VTE Risk Level:: Medical - moderate - high VTE Device Contraindication: Treatment Not Indicated VTE Drug Contraindication: N/A - Med Ordered
--- NOTE | 2024-11-26 13:48 | PHA.MEDREC ---
Pharmacy Consult ? Medication Reconciliation Pharmacy has completed the medication reconciliation. Spoke with daughter over the phone who was able to confirm home meds via patient's medication bottles/pack.
[2024-11-26] MEDS: Spironolactone 25 MG TABLET 12.5 MG PO (14:50)
[2024-11-26 16:22] LABS: Glucose, Whole Blood 172 mg/dL (60-115)
[2024-11-26 19:47] LABS: Glucose, Whole Blood 89 mg/dL (60-115)
[2024-11-26] MEDS: carvediloL 3.125 MG TABLET PO (21:35)
[2024-11-26] MEDS: Enoxaparin Sodium 40 MG/0.4 ML SYRINGE SUBCUT (21:35)
[2024-11-26] MEDS: Multivitamin TABLET 1 TAB PO (21:35)
[2024-11-26] MEDS: Insulin Glargine,Hum.rec.anlog 100 UNIT/ML 10 ML VIAL SUBCUT (21:36)
[2024-11-27] VITALS (11 sets, daily range): BP systolic 96–152; BP diastolic 44–68; PULSE 76–94; RESP 16–20; TEMP 36–36.8; O2SAT 92–94
[2024-11-27 07:23] LABS: Glucose, Whole Blood 96 mg/dL (60-115)
[2024-11-27 07:50] LABS: Anion Gap 15 (12-20); Blood Urea Nitrogen 40 mg/dL (9-16); Calcium 8.3 mg/dL (8.4-10.2); Carbon Dioxide 20 mmol/L (22-29); Chloride 105 mmol/L (96-108); Creatinine Clr Calc Pharmacy 34.2; Estimated Glomerular Filt Rate 43; Glucose Random 84 mg/dL (60-115); Sodium 135 mmol/L (135-145)
[2024-11-27 07:52] LABS: B Type Natriuretic Peptide 555 pg/mL (<100)
[2024-11-27] MEDS: Tiotropium Bromide 2.5 mcg 1 PUFF/2.5 MCG MIST.INHAL 2 PUFF INHALE (08:48)
[2024-11-27] MEDS: Albuterol/Iprat 2.5/0.5MG 3 ML AMPUL.NEB INHALE ×4 (08:48→19:13)
[2024-11-27] MEDS: Sodium Bicarbonate 650 MG TABLET PO (08:55)
[2024-11-27] MEDS: Atorvastatin Calcium 80 MG TABLET PO (08:55)
[2024-11-27] MEDS: 0.9 % Sodium Chloride Flush 3 ML SYRINGE IVFLUSH ×2 (08:55→21:54)
[2024-11-27] MEDS: Ferrous Sulfate 324 MG TABLET.DR PO (08:56)
[2024-11-27] MEDS: Empagliflozin 25 MG TABLET PO (08:56)
[2024-11-27] MEDS: Multivitamin TABLET 1 TAB PO ×2 (08:56→21:48)
[2024-11-27] MEDS: Aspirin 81 MG TAB.CHEW PO (08:56)
[2024-11-27] MEDS: carvediloL 3.125 MG TABLET PO ×2 (08:56→21:48)
[2024-11-27] MEDS: Isosorbide Mononitrate 30 MG TAB.ER.24H 15 MG PO (08:57)
[2024-11-27] MEDS: Spironolactone 25 MG TABLET 12.5 MG PO (08:58)
--- NOTE | 2024-11-27 10:11 | MHC.CM.PN ---
Per MD rounds patient not medically cleared for dc. CM will continue to follow.
[2024-11-27 11:14] LABS: Glucose, Whole Blood 212 mg/dL (60-115)
[2024-11-27] MEDS: Insulin Lispro 100 UNIT/ML 3 ML VIAL SUBCUT ×3 (11:30→21:51)
--- NOTE | 2024-11-27 13:25 | PM.PNCARD ---
Subjective Subjective Date of Service: 11/27/24 Interval history: Patient feeling better although continues to have shortness of breath with minimal exertion. Has diuresed 800 cc overnight. BNP is downtrending. Using nebulizer. Creatinine is more or less stable at 1.57. Potassium level is 5 Review of Systems Constitutional: Reports no additional constitutional complaints Cardiovascular: Denies chest pain, Denies lightheadedness, Denies palpitations and Reports dyspnea on exertion Respiratory: Reports no additional respiratory complaints and Reports dyspnea on exertion Gastrointestinal: Reports no additional gastrointestinal complaints Genitourinary: Reports no additional male genitourinary complaints Reports system reviewed and no additional complaints, except as documented Endocrine: Denies palpitations Physical Exam Vital Signs: Last Vital Signs Temp 98.2 F 11/27/24 12:10 Pulse 82 11/27/24 12:10 Resp 20 11/27/24 12:10 BP 96/49 L 11/27/24 12:10 Pulse Ox 92 11/27/24 12:10 O2 Del Method Nasal Cannula 11/27/24 12:10 O2 Flow Rate 5 11/27/24 12:10 Oxygen Flow Rate 4 11/25/24 17:05 BMI result Body Mass Index 32.1 Const General: cooperative, comfortable and in distress mild and respiratory Nutritional Appearance: obese Orientation/consciousness: patient oriented x3 Neck Neck: Yes trachea midline, Yes supple and Yes no JVD Resp Effort & Inspection: normal respiratory effort Auscultation: crackles on the left at the base Cardio Rate: regular rate Rhythm: regular rhythm Heart sounds: S1 normal heart sound present, S2 normal heart sound present, no click, no gallops and no murmurs GI Auscultation: normal bowel sounds Neuro General: patient oriented x3 and no focal motor deficits Extrem General: No edema Objective Labs and Meds 11/26/24 06:10 11/27/24 06:20 Lab results: Laboratory Results - last 24 hr 11/26/24 11/26/24 11/27/24 16:16 19:30 06:20 Sodium 135 Potassium 5.0 Chloride 105 Carbon Dioxide 20 L Anion Gap 15 BUN 40 H Creatinine 1.57 H Estim Creat Clear Calc 34.2 Estimated GFR 43 POC Glucose 172 H 89 Random Glucose 84 Calcium 8.3 L B-Natriuretic Peptide 555 H 11/27/24 11/27/24 07:19 11:10 Sodium Potassium Chloride Carbon Dioxide Anion Gap BUN Creatinine Estim Creat Clear Calc Estimated GFR POC Glucose 96 212 H Random Glucose Calcium B-Natriuretic Peptide Progress Note: A&P Assessment and plan (1) CHF exacerbation: Status: Acute Assessment and Plan: Acute diastolic heart failure. Patient still appears to be symptomatic. BNP is downtrending and patient was diuresing but still appears to be in heart failure. Will continue IV diuresis and increase it to 40 mg b.i.d.. Strict intake and output chart needs to be pursued. Continue to trend BNP and BNP. He has multiple comorbidities including diabetes, chronic kidney disease as well as COPD with chronic respiratory failure. Continue Aldactone and Jardiance. Continue respiratory treatment and supportive care. Will follow with you Time Spent With Patient Time: Total time managing care of this patient today ____ minutes. Progress Note: Quality Stroke Does the patient have a stroke diagnosis?: No Procedures Date of Service Date of Service: 11/27/24
--- NOTE | 2024-11-27 13:44 | HO.PM.IMPN ---
Subjective Subjective Date of Service: 11/27/24 Interval History: seen and examined this morning follow up for CHF pt reports ongoing JOSE, breathing ok at rest Review of Systems Review of Systems: Yes all other systems are reviewed and are negative Constitutional Constitutional: Denies chills and Denies fever(s) Cardiovascular Cardiovascular: Denies chest pain, Denies palpitations and Reports dyspnea on exertion Respiratory Respiratory: Reports dyspnea on exertion Endocrine Endocrine: Denies palpitations Physical Exam Vital Signs: Vital Signs: Last Vital Signs Temp 98.2 F 11/27/24 12:10 Pulse 82 11/27/24 12:10 Resp 20 11/27/24 12:10 BP 96/49 L 11/27/24 12:10 Pulse Ox 92 11/27/24 12:10 O2 Del Method Nasal Cannula 11/27/24 12:10 O2 Flow Rate 5 11/27/24 12:10 Oxygen Flow Rate 4 11/25/24 17:05 BMI result Body Mass Index 32.1 Const: General: cooperative, no acute distress, alert and awake Nutritional Appearance: overweight Orientation/consciousness: patient oriented x3 Resp: Other: basilar rales Effort & Inspection: normal respiratory effort, able to speak in complete sentences, no respiratory distress and no use of accessory muscles Cardio: Rate: regular rate GI: Inspection: No distended Palpation (GI): Soft to palpation Neuro: General: patient oriented x3, moves all extremities and CN's II-XI intact bilaterally Extrem: Other: RLE edema1+ no erythema Objective Data Active Medications Acetaminophen (Acetaminophen 325 Mg Tablet) 650 mg PO Q6H PRN PRN Reason: Pain, Mild 1-3,fever,headache Last Admin: 11/26/24 16:32 Dose: 650 mg Documented By: ROMY Albuterol/Ipratropium (Albuterol/Iprat 2.5/0.5mg 3 Ml Ampul.Neb) 3 ml INHALE Q4H PRN PRN Reason: Shortness of Breath/Wheezing Albuterol/Ipratropium (Albuterol/Iprat 2.5/0.5mg 3 Ml Ampul.Neb) 3 ml INHALE RQ4H WHILE AWAKE [facility] Last Admin: 11/27/24 11:26 Dose: 3 ml Documented By: DENISE Aspirin (Aspirin 81 Mg Tab.Chew) 81 mg PO DAILY [facility] Last Admin: 11/27/24 08:56 Dose: 81 mg Documented By: WALLY Atorvastatin Calcium (Atorvastatin Calcium 80 Mg Tablet) 80 mg PO DAILY [facility] Last Admin: 11/27/24 08:55 Dose: 80 mg Documented By: WALLY Calcium Carbonate (Calcium Carbonate 750 Mg Tab.Chew) 750 mg PO Q4H PRN PRN Reason: Heartburn Carvedilol (Carvedilol 3.125 Mg Tablet) 3.125 mg PO BID [facility]; Protocol Last Admin: 11/27/24 08:56 Dose: 3.125 mg Documented By: WALLY Empagliflozin (Empagliflozin 25 Mg Tablet) 25 mg PO DAILY [facility] Last Admin: 11/27/24 08:56 Dose: 25 mg Documented By: WALLY Enoxaparin Sodium (Enoxaparin Sodium 40 Mg/0.4 Ml Syringe) 40 mg SUBCUT Q24H [facility] Last Admin: 11/26/24 21:35 Dose: 40 mg Documented By: VICTORIA Ferrous Sulfate (Ferrous Sulfate 324 Mg Tablet.Dr) 324 mg PO DAILY [facility] Last Admin: 11/27/24 08:56 Dose: 324 mg Documented By: WALLY Furosemide (Furosemide 40 Mg/4 Ml Vial) 40 mg IVPUSH BID@0900,1800 [facility]; Protocol Glucose (Glucose Gel 15 Gm Gel..Gram.) 15 gm PO Q15M PRN; Protocol PRN Reason: per Hypoglycemia Standing Ord. Dextrose (D10) 250 mls @ 750 mls/hr IV Q15M PRN; Protocol PRN Reason: per Hypoglycemia Standing Ord. Insulin Glargine (Insulin Glargine,Hum.Rec.Anlog 100 Unit/Ml 10 Ml Vial) 5 unit SUBCUT BEDTIME [facility] Last Admin: 11/26/24 21:36 Dose: 5 unit Documented By: VICTORIA Insulin Human Lispro (Insulin Lispro 100 Unit/Ml 3 Ml Vial) 0 unit SUBCUT QIDACHS [facility]; Protocol Last Admin: 11/27/24 11:30 Dose: 4 unit Documented By: WALLY Isosorbide Mononitrate (Isosorbide Mononitrate 30 Mg Tab.Er.24h) 15 mg PO DAILY [facility]; Protocol Last Admin: 11/27/24 08:57 Dose: 15 mg Documented By: WALLY Magnesium Hydroxide (Milk Of Magnesia 30 Ml Oral.Susp) 30 ml PO DAILY PRN PRN Reason: Constipation Melatonin (Melatonin 3 Mg Tablet) 6 mg PO BEDTIME PRN PRN Reason: Insomnia Multivitamins/Vitamin C (Multivitamin Tablet) 1 tab PO BID [facility] Last Admin: 11/27/24 08:56 Dose: 1 tab Documented By: WALLY Nystatin (Nystatin Powder 15 Gm Bottle) 1 appl TOPICAL BID PRN; Protocol PRN Reason: Rash Ondansetron HCl (Ondansetron Hcl 4 Mg/2 Ml Vial) 4 mg IVPUSH Q8H PRN PRN Reason: Nausea and Vomiting Sodium Bicarbonate (Sodium Bicarbonate 650 Mg Tablet) 650 mg PO DAILY [facility] Last Admin: 11/27/24 08:55 Dose: 650 mg Documented By: WALLY Sodium Chloride (0.9 % Sodium Chloride Flush 3 Ml Syringe) 3 ml IVFLUSH QSHIFT [facility] Last Admin: 11/27/24 08:55 Dose: 3 ml Documented By: WALLY Spironolactone (Spironolactone 25 Mg Tablet) 12.5 mg PO DAILY [facility]; Protocol Last Admin: 11/27/24 08:58 Dose: 12.5 mg Documented By: WALLY Tiotropium [place] (Tiotropium [place] 2.5 Mcg 1 Puff/2.5 Mcg Mist.Inhal) 2 puff INHALE RDAILY [facility] Last Admin: 11/27/24 08:48 Dose: 2 puff Documented By: [email or web address] Labs 11/26/24 06:10 11/27/24 06:20 Labs: Laboratory Results - last 24 hr 11/26/24 11/26/24 11/27/24 16:16 19:30 06:20 Anion Gap 15 Estim Creat Clear Calc 34.2 Estimated GFR 43 POC Glucose 172 H 89 Random Glucose 84 Calcium 8.3 L B-Natriuretic Peptide 555 H 11/27/24 11/27/24 07:19 11:10 Anion Gap Estim Creat Clear Calc Estimated GFR POC Glucose 96 212 H Random Glucose Calcium B-Natriuretic Peptide Assessment and Plan (1) CHF (congestive heart failure): Status: Acute Plan This is a 79-year-old male with pertinent history of congestive heart failure with preserved ejection fraction, chronic hypoxemic respiratory failure due to COPD on 4 L supplemental oxygen, coronary artery disease, hypertension, hyperlipidemia, insulin-dependent diabetes mellitus, chronic kidney disease presents to the emergency department for evaluation of dyspnea. Acute on chronic hypoxemic respiratory failure due to decompensated diastolic heart failure: negative 2.4L thus far continue IV lasix, cardiology rec to increase to bid; bp soft, will increase as bp allows strict I's and O's. Low-salt diet. continue jardiance, BB started on aldactone seen by cardiology follow BMP, BNP CKD stage 3: with chronic metabolic acidosis Creatinine at baseline. Continue to monitor with diuresis continue baseline sodium bicarb COPD: No exacerbation during admission. Continue home inhalers Coronary artery disease: On dual antiplatelet therapy, statin, coreg, imdur Insulin-dependent diabetes mellitus: continue low dose lantus and SSI, uptitrate lantus as needed DVT prophylaxis: Lovenox Full code requires ongoing inpatient stay for supplemental oxygen, IV diuresis (as above), which is not possible in a lesser acute setting. Quality Stroke Does the patient have a stroke diagnosis?: No VTE Prior VTE?: No VTE Risk Level:: Medical - moderate - high VTE Device Contraindication: Treatment Not Indicated VTE Drug Contraindication: N/A - Med Ordered
[2024-11-27] MEDS: Acetaminophen 325 MG TABLET 650 MG PO (14:24)
[2024-11-27] MEDS: Albumin Human 25 % 100 ML IV ×2 (14:29→15:30)
[2024-11-27 16:09] LABS: Glucose, Whole Blood 152 mg/dL (60-115)
[2024-11-27] MEDS: Furosemide 40 MG/4 ML VIAL IVPUSH (17:22)
[2024-11-27 21:00] LABS: Glucose, Whole Blood 186 mg/dL (60-115)
[2024-11-27] MEDS: Enoxaparin Sodium 40 MG/0.4 ML SYRINGE SUBCUT (21:50)
[2024-11-27] MEDS: Insulin Glargine,Hum.rec.anlog 100 UNIT/ML 10 ML VIAL SUBCUT (21:51)
[2024-11-28] VITALS (12 sets, daily range): BP systolic 125–149; BP diastolic 60–70; PULSE 77–91; RESP 12–18; TEMP 36–36.4; O2SAT 90–95
[2024-11-28] MEDS: Acetaminophen 325 MG TABLET 650 MG PO (05:00)
[2024-11-28 07:27] LABS: Glucose, Whole Blood 143 mg/dL (60-115)
[2024-11-28] MEDS: Tiotropium Bromide 2.5 mcg 1 PUFF/2.5 MCG MIST.INHAL 2 PUFF INHALE (07:41)
[2024-11-28] MEDS: Albuterol/Iprat 2.5/0.5MG 3 ML AMPUL.NEB INHALE ×4 (07:43→19:02)
[2024-11-28 08:01] LABS: Anion Gap 15 (12-20); Blood Urea Nitrogen 39 mg/dL (9-16); Calcium 8.9 mg/dL (8.4-10.2); Carbon Dioxide 24 mmol/L (22-29); Chloride 103 mmol/L (96-108); Estimated Glomerular Filt Rate 41; Glucose Random 150 mg/dL (60-115); Potassium 4.6 mmol/L (3.3-5.1); Sodium 137 mmol/L (135-145)
[2024-11-28 08:12] LABS: B Type Natriuretic Peptide 672 pg/mL (<100)
[2024-11-28] MEDS: 0.9 % Sodium Chloride Flush 3 ML SYRINGE IVFLUSH ×3 (08:23→22:16)
[2024-11-28] MEDS: carvediloL 3.125 MG TABLET PO ×2 (08:24→22:10)
[2024-11-28] MEDS: Isosorbide Mononitrate 30 MG TAB.ER.24H 15 MG PO (08:24)
[2024-11-28] MEDS: Aspirin 81 MG TAB.CHEW PO (08:25)
[2024-11-28] MEDS: Ferrous Sulfate 324 MG TABLET.DR PO (08:26)
[2024-11-28] MEDS: Multivitamin TABLET 1 TAB PO ×2 (08:26→22:10)
[2024-11-28] MEDS: Sodium Bicarbonate 650 MG TABLET PO (08:26)
[2024-11-28] MEDS: Atorvastatin Calcium 80 MG TABLET PO (08:26)
[2024-11-28] MEDS: Furosemide 40 MG/4 ML VIAL IVPUSH ×2 (08:26→18:01)
[2024-11-28] MEDS: Empagliflozin 25 MG TABLET PO (08:26)
[2024-11-28] MEDS: Spironolactone 25 MG TABLET 12.5 MG PO (08:34)
--- NOTE | 2024-11-28 08:34 | HO.PM.IMPN ---
Subjective Subjective Date of Service: 11/28/24 Interval History: seen and examined this morning follow up for CHF pt reports ongoing JOSE, breathing ok at rest Review of Systems Review of Systems: Yes all other systems are reviewed and are negative Constitutional Constitutional: Denies chills and Denies fever(s) Cardiovascular Cardiovascular: Denies chest pain, Denies palpitations and Reports dyspnea on exertion Respiratory Respiratory: Reports dyspnea on exertion Endocrine Endocrine: Denies palpitations Physical Exam Vital Signs: Vital Signs: Last Vital Signs Temp 97.3 F 11/28/24 07:24 Pulse 84 11/28/24 07:43 Resp 12 11/28/24 07:43 BP 135/70 11/28/24 07:24 Pulse Ox 94 11/28/24 07:24 O2 Del Method Oxymask 11/28/24 07:24 O2 Flow Rate 5 11/28/24 07:24 Oxygen Flow Rate 4 11/25/24 17:05 BMI result Body Mass Index 32.1 Appearing in no acute distress lung sounds mild rales at bases heart regular rate rhythm, clear S1, S2 positive bowel sounds, abdomen is soft, nontender neuro patient is alert x3, no focal deficits Objective Data Active Medications Acetaminophen (Acetaminophen 325 Mg Tablet) 650 mg PO Q6H PRN PRN Reason: Pain, Mild 1-3,fever,headache Last Admin: 11/28/24 05:00 Dose: 650 mg Documented By: ОЛЬГА Comments: per pt request to take Tylenol Albuterol/Ipratropium (Albuterol/Iprat 2.5/0.5mg 3 Ml Ampul.Neb) 3 ml INHALE Q4H PRN PRN Reason: Shortness of Breath/Wheezing Albuterol/Ipratropium (Albuterol/Iprat 2.5/0.5mg 3 Ml Ampul.Neb) 3 ml INHALE RQ4H WHILE AWAKE [facility] Last Admin: 11/28/24 07:43 Dose: 3 ml Documented By: MARGE Aspirin (Aspirin 81 Mg Tab.Chew) 81 mg PO DAILY [facility] Last Admin: 11/28/24 08:25 Dose: 81 mg Documented By: WALLY Atorvastatin Calcium (Atorvastatin Calcium 80 Mg Tablet) 80 mg PO DAILY [facility] Last Admin: 11/28/24 08:26 Dose: 80 mg Documented By: WALLY Calcium Carbonate (Calcium Carbonate 750 Mg Tab.Chew) 750 mg PO Q4H PRN PRN Reason: Heartburn Carvedilol (Carvedilol 3.125 Mg Tablet) 3.125 mg PO BID [facility]; Protocol Last Admin: 11/28/24 08:24 Dose: 3.125 mg Documented By: WALLY Empagliflozin (Empagliflozin 25 Mg Tablet) 25 mg PO DAILY [facility] Last Admin: 11/28/24 08:26 Dose: 25 mg Documented By: WALLY Enoxaparin Sodium (Enoxaparin Sodium 40 Mg/0.4 Ml Syringe) 40 mg SUBCUT Q24H [facility] Last Admin: 11/27/24 21:50 Dose: 40 mg Documented By: ОЛЬГА Ferrous Sulfate (Ferrous Sulfate 324 Mg Tablet.Dr) 324 mg PO DAILY [facility] Last Admin: 11/28/24 08:26 Dose: 324 mg Documented By: WALLY Furosemide (Furosemide 40 Mg/4 Ml Vial) 40 mg IVPUSH BID@0900,1800 [facility]; Protocol Last Admin: 11/28/24 08:26 Dose: 40 mg Documented By: WALLY Glucose (Glucose Gel 15 Gm Gel..Gram.) 15 gm PO Q15M PRN; Protocol PRN Reason: per Hypoglycemia Standing Ord. Dextrose (D10) 250 mls @ 750 mls/hr IV Q15M PRN; Protocol PRN Reason: per Hypoglycemia Standing Ord. Insulin Glargine (Insulin Glargine,Hum.Rec.Anlog 100 Unit/Ml 10 Ml Vial) 5 unit SUBCUT BEDTIME [facility] Last Admin: 11/27/24 21:51 Dose: 5 unit Documented By: ОЛЬГА Insulin Human Lispro (Insulin Lispro 100 Unit/Ml 3 Ml Vial) 0 unit SUBCUT QIDACHS [facility]; Protocol Last Admin: 11/28/24 08:22 Dose: Not Given Documented By: WALLY Non-Admin Reason: No Insulin Coverage Isosorbide Mononitrate (Isosorbide Mononitrate 30 Mg Tab.Er.24h) 15 mg PO DAILY [facility]; Protocol Last Admin: 11/28/24 08:24 Dose: 15 mg Documented By: WALLY Magnesium Hydroxide (Milk Of Magnesia 30 Ml Oral.Susp) 30 ml PO DAILY PRN PRN Reason: Constipation Melatonin (Melatonin 3 Mg Tablet) 6 mg PO BEDTIME PRN PRN Reason: Insomnia Multivitamins/Vitamin C (Multivitamin Tablet) 1 tab PO BID [facility] Last Admin: 11/28/24 08:26 Dose: 1 tab Documented By: WALLY Nystatin (Nystatin Powder 15 Gm Bottle) 1 appl TOPICAL BID PRN; Protocol PRN Reason: Rash Ondansetron HCl (Ondansetron Hcl 4 Mg/2 Ml Vial) 4 mg IVPUSH Q8H PRN PRN Reason: Nausea and Vomiting Sodium Bicarbonate (Sodium Bicarbonate 650 Mg Tablet) 650 mg PO DAILY [facility] Last Admin: 11/28/24 08:26 Dose: 650 mg Documented By: WALLY Sodium Chloride (0.9 % Sodium Chloride Flush 3 Ml Syringe) 3 ml IVFLUSH QSHIFT [facility] Last Admin: 11/28/24 08:23 Dose: 3 ml Documented By: WALLY Spironolactone (Spironolactone 25 Mg Tablet) 12.5 mg PO DAILY [facility]; Protocol Last Admin: 11/28/24 08:34 Dose: 12.5 mg Documented By: WALLY Tiotropium [place] (Tiotropium [place] 2.5 Mcg 1 Puff/2.5 Mcg Mist.Inhal) 2 puff INHALE RDAILY [facility] Last Admin: 11/28/24 07:41 Dose: 2 puff Documented By: MARGE Labs 11/26/24 06:10 11/28/24 07:23 Labs: Laboratory Results - last 24 hr 11/27/24 11/27/24 11/27/24 11:10 16:06 20:56 Anion Gap Estim Creat Clear Calc Estimated GFR POC Glucose 212 H 152 H 186 H Random Glucose Calcium B-Natriuretic Peptide 11/28/24 07:23 Anion Gap 15 Estim Creat Clear Calc 33.0 Estimated GFR 41 POC Glucose 143 H Random Glucose 150 H Calcium 8.9 D B-Natriuretic Peptide 672 H Assessment and Plan (1) CHF (congestive heart failure): Status: Acute Plan 79-year-old male with pertinent history of congestive heart failure with preserved ejection fraction, chronic hypoxemic respiratory failure due to COPD on 4 L supplemental oxygen, coronary artery disease, hypertension, hyperlipidemia, insulin-dependent diabetes mellitus, chronic kidney disease presents to the emergency department for evaluation of dyspnea. Acute on chronic hypoxemic respiratory failure due to decompensated diastolic heart failure negative 2.4L thus far continue IV lasix, 40mg BID strict I's and O's. Low-salt diet. continue jardiance, BB, aldactone seen by cardiology follow BMP, BNP CKD stage 3 with chronic metabolic acidosis Creatinine at baseline. Continue to monitor with diuresis continue baseline sodium bicarb COPD No exacerbation during admission. Continue home inhalers Coronary artery disease On dual antiplatelet therapy, statin, coreg, imdur Insulin-dependent diabetes mellitus: continue low dose lantus and SSI, uptitrate lantus as needed DVT prophylaxis: Lovenox Full code requires ongoing inpatient stay for supplemental oxygen, IV diuresis (as above), which is not possible in a lesser acute setting. Quality Stroke Does the patient have a stroke diagnosis?: No VTE Prior VTE?: No VTE Risk Level:: Medical - moderate - high VTE Device Contraindication: Treatment Not Indicated VTE Drug Contraindication: N/A - Med Ordered
[2024-11-28 11:15] LABS: Glucose, Whole Blood 311 mg/dL (60-115)
[2024-11-28] MEDS: Insulin Lispro 100 UNIT/ML 3 ML VIAL SUBCUT ×2 (11:57→22:13)
--- NOTE | 2024-11-28 12:54 | PM.PNCARD ---
Subjective Subjective Date of Service: 11/28/24 Principal diagnosis: Decompensated CHF. Interval history: Patient says overnight still has shortness of breath and oxygen levels drop. Has diuresed about 1200 cc since yesterday after increasing his Lasix. Creatinine is slightly increased. Overall however he says he feels better. Review of Systems Constitutional: Reports fatigue and Reports weakness Cardiovascular: Denies chest pain, Denies lightheadedness, Denies Loss of Consciousness, Denies palpitations, Reports dyspnea on exertion and Reports orthopnea Respiratory: Reports dyspnea on exertion and Reports wheezing Reports system reviewed and no additional complaints, except as documented and Reports weakness Psychiatric: Reports no additional psychiatric complaints Endocrine: Reports fatigue and Denies palpitations Allergic/Immunologic: Reports wheezing Physical Exam Vital Signs: Last Vital Signs Temp 97.5 F 11/28/24 11:45 Pulse 77 11/28/24 11:45 Resp 16 11/28/24 11:45 BP 142/70 H 11/28/24 11:45 Pulse Ox 92 11/28/24 11:45 O2 Del Method Nasal Cannula 11/28/24 11:45 O2 Flow Rate 5 11/28/24 11:45 Oxygen Flow Rate 4 11/25/24 17:05 BMI result Body Mass Index 32.1 Const General: cooperative, comfortable and in distress mild and respiratory Nutritional Appearance: obese Orientation/consciousness: patient oriented x3 Neck Neck: Yes trachea midline, Yes supple and Yes no JVD Resp Effort & Inspection: normal respiratory effort Auscultation: rales bilateral at the base Cardio Rate: regular rate Rhythm: regular rhythm Heart sounds: S1 normal heart sound present, S2 normal heart sound present, no click, no gallops and no murmurs GI Auscultation: normal bowel sounds Neuro General: patient oriented x3 and no focal motor deficits Extrem General: No edema Objective Labs and Meds 11/26/24 06:10 11/28/24 07:23 Lab results: Laboratory Results - last 24 hr 11/27/24 11/27/24 11/28/24 16:06 20:56 07:23 Hold Purple Top Sodium 137 Potassium 4.6 Chloride 103 Carbon Dioxide 24 Anion Gap 15 BUN 39 H Creatinine 1.63 H Estim Creat Clear Calc 33.0 Estimated GFR 41 POC Glucose 152 H 186 H 143 H Random Glucose 150 H Calcium 8.9 D B-Natriuretic Peptide 672 H 11/28/24 11/28/24 08:39 11:11 Hold Purple Top SEE NOTE Sodium Potassium Chloride Carbon Dioxide Anion Gap BUN Creatinine Estim Creat Clear Calc Estimated GFR POC Glucose 311 H Random Glucose Calcium B-Natriuretic Peptide Progress Note: A&P Assessment and plan (1) CHF exacerbation: Status: Acute Assessment and Plan: Decompensated diastolic heart failure with multiple comorbidities. Patient is gradually improving. Diuresis well overnight. Continue current diuretic dose as well as Jardiance. Can maximize spironolactone to 25 mg daily. Continue monitor and manage his pulmonary condition with bronchodilators. Strict intake and output chart needs to monitor. Continue to follow BNP and BNP. Will follow with you Time Spent With Patient Time: Total time managing care of this patient today ____ minutes. Progress Note: Quality Stroke Does the patient have a stroke diagnosis?: No Procedures Date of Service Date of Service: 11/28/24
[2024-11-28 16:20] LABS: Glucose, Whole Blood 105 mg/dL (60-115)
[2024-11-28 20:30] LABS: Glucose, Whole Blood 172 mg/dL (60-115)
[2024-11-28] MEDS: Enoxaparin Sodium 40 MG/0.4 ML SYRINGE SUBCUT (22:11)
[2024-11-28] MEDS: Insulin Glargine,Hum.rec.anlog 100 UNIT/ML 10 ML VIAL SUBCUT (22:13)
[2024-11-29] VITALS (11 sets, daily range): BP systolic 111–151; BP diastolic 56–71; PULSE 60–113; RESP 14–18; TEMP 36–36.6; O2SAT 88–97
[2024-11-29] MEDS: Acetaminophen 325 MG TABLET 650 MG PO (00:31)
[2024-11-29 06:16] LABS: Blood Urea Nitrogen 44 mg/dL (9-16); Calcium 8.5 mg/dL (8.4-10.2); Carbon Dioxide 22 mmol/L (22-29); Chloride 100 mmol/L (96-108); Creatinine Clr Calc Pharmacy 30.2; Estimated Glomerular Filt Rate 37; Glucose Random 208 mg/dL (60-115); Potassium 4.4 mmol/L (3.3-5.1); Sodium 133 mmol/L (135-145)
[2024-11-29 07:28] LABS: Anion Gap 14 (12-20)
[2024-11-29 07:43] LABS: Glucose, Whole Blood 184 mg/dL (60-115)
[2024-11-29] MEDS: Furosemide 40 MG/4 ML VIAL IVPUSH ×2 (08:06→17:15)
[2024-11-29] MEDS: Insulin Lispro 100 UNIT/ML 3 ML VIAL SUBCUT ×4 (08:06→21:35)
[2024-11-29] MEDS: Aspirin 81 MG TAB.CHEW PO (08:08)
[2024-11-29] MEDS: Empagliflozin 25 MG TABLET PO (08:08)
[2024-11-29] MEDS: carvediloL 3.125 MG TABLET PO ×2 (08:08→21:36)
[2024-11-29] MEDS: Multivitamin TABLET 1 TAB PO ×2 (08:08→21:36)
[2024-11-29] MEDS: 0.9 % Sodium Chloride Flush 3 ML SYRINGE IVFLUSH ×2 (08:09→19:53)
[2024-11-29] MEDS: Atorvastatin Calcium 80 MG TABLET PO (08:09)
[2024-11-29] MEDS: Tiotropium Bromide 2.5 mcg 1 PUFF/2.5 MCG MIST.INHAL 2 PUFF INHALE (08:10)
[2024-11-29] MEDS: Ferrous Sulfate 324 MG TABLET.DR PO (08:10)
[2024-11-29] MEDS: Albuterol/Iprat 2.5/0.5MG 3 ML AMPUL.NEB INHALE ×4 (08:10→21:36)
[2024-11-29] MEDS: Isosorbide Mononitrate 30 MG TAB.ER.24H 15 MG PO (08:10)
[2024-11-29] MEDS: Spironolactone 25 MG TABLET 12.5 MG PO (08:11)
[2024-11-29] MEDS: Sodium Bicarbonate 650 MG TABLET PO (08:12)
--- NOTE | 2024-11-29 08:43 | P.PNIM_ITS ---
Subjective Subjective Date of Service: 11/29/24 Interval History: seen and examined this morning follow up for CHF pt reports ongoing JOSE, breathing ok at rest Review of Systems Review of Systems: Yes all other systems are reviewed and are negative Constitutional Constitutional: Denies chills and Denies fever(s) Cardiovascular Cardiovascular: Denies chest pain, Denies palpitations and Reports dyspnea on exertion Respiratory Respiratory: Reports dyspnea on exertion Endocrine Endocrine: Denies palpitations Physical Exam 2 Vital Signs: Vital Signs: Last Vital Signs Temp 97.0 F 11/29/24 07:21 Pulse 84 11/29/24 08:10 Resp 18 11/29/24 08:10 BP 124/57 L 11/29/24 07:21 Pulse Ox 94 11/29/24 07:21 O2 Del Method Oxymask 11/29/24 07:21 O2 Flow Rate 5.0 11/29/24 07:21 Oxygen Flow Rate 4 11/25/24 17:05 BMI result Body Mass Index 32.1 Appearing in no acute distress lung sounds mild rales heart regular rate rhythm, clear S1, S2 positive bowel sounds, abdomen is soft, nontender neuro patient is alert x3, no focal deficits Objective Data Active Medications Acetaminophen (Acetaminophen 325 Mg Tablet) 650 mg PO Q6H PRN PRN Reason: Pain, Mild 1-3,fever,headache Last Admin: 11/29/24 00:31 Dose: 650 mg Documented By: ОЛЬГА Albuterol/Ipratropium (Albuterol/Iprat 2.5/0.5mg 3 Ml Ampul.Neb) 3 ml INHALE Q4H PRN PRN Reason: Shortness of Breath/Wheezing Albuterol/Ipratropium (Albuterol/Iprat 2.5/0.5mg 3 Ml Ampul.Neb) 3 ml INHALE RQ4H WHILE AWAKE [facility] Last Admin: 11/29/24 08:10 Dose: 3 ml Documented By: DENISE Aspirin (Aspirin 81 Mg Tab.Chew) 81 mg PO DAILY [facility] Last Admin: 11/29/24 08:08 Dose: 81 mg Documented By: WALLY Atorvastatin Calcium (Atorvastatin Calcium 80 Mg Tablet) 80 mg PO DAILY [facility] Last Admin: 11/29/24 08:09 Dose: 80 mg Documented By: WALLY Calcium Carbonate (Calcium Carbonate 750 Mg Tab.Chew) 750 mg PO Q4H PRN PRN Reason: Heartburn Carvedilol (Carvedilol 3.125 Mg Tablet) 3.125 mg PO BID [facility]; Protocol Last Admin: 11/29/24 08:08 Dose: 3.125 mg Documented By: WALLY Empagliflozin (Empagliflozin 25 Mg Tablet) 25 mg PO DAILY [facility] Last Admin: 11/29/24 08:08 Dose: 25 mg Documented By: WALLY Enoxaparin Sodium (Enoxaparin Sodium 40 Mg/0.4 Ml Syringe) 40 mg SUBCUT Q24H [facility] Last Admin: 11/28/24 22:11 Dose: 40 mg Documented By: ОЛЬГА Ferrous Sulfate (Ferrous Sulfate 324 Mg Tablet.Dr) 324 mg PO DAILY [facility] Last Admin: 11/29/24 08:10 Dose: 324 mg Documented By: WALLY Furosemide (Furosemide 40 Mg/4 Ml Vial) 40 mg IVPUSH BID@0900,1800 [facility]; Protocol Last Admin: 11/29/24 08:06 Dose: 40 mg Documented By: WALLY Glucose (Glucose Gel 15 Gm Gel..Gram.) 15 gm PO Q15M PRN; Protocol PRN Reason: per Hypoglycemia Standing Ord. Dextrose (D10) 250 mls @ 750 mls/hr IV Q15M PRN; Protocol PRN Reason: per Hypoglycemia Standing Ord. Levetiracetam (Keppra) 500 mg in 100 mls @ 400 mls/hr IV Q12H [facility] Insulin Glargine (Insulin Glargine,Hum.Rec.Anlog 100 Unit/Ml 10 Ml Vial) 5 unit SUBCUT BEDTIME [facility] Last Admin: 11/28/24 22:13 Dose: 5 unit Documented By: ОЛЬГА Insulin Human Lispro (Insulin Lispro 100 Unit/Ml 3 Ml Vial) 0 unit SUBCUT QIDACHS [facility]; Protocol Last Admin: 11/29/24 08:06 Dose: 2 unit Documented By: WALLY Isosorbide Mononitrate (Isosorbide Mononitrate 30 Mg Tab.Er.24h) 15 mg PO DAILY [facility]; Protocol Last Admin: 11/29/24 08:10 Dose: 15 mg Documented By: WALLY Magnesium Hydroxide (Milk Of Magnesia 30 Ml Oral.Susp) 30 ml PO DAILY PRN PRN Reason: Constipation Melatonin (Melatonin 3 Mg Tablet) 6 mg PO BEDTIME PRN PRN Reason: Insomnia Multivitamins/Vitamin C (Multivitamin Tablet) 1 tab PO BID [facility] Last Admin: 11/29/24 08:08 Dose: 1 tab Documented By: WALLY Nystatin (Nystatin Powder 15 Gm Bottle) 1 appl TOPICAL BID PRN; Protocol PRN Reason: Rash Ondansetron HCl (Ondansetron Hcl 4 Mg/2 Ml Vial) 4 mg IVPUSH Q8H PRN PRN Reason: Nausea and Vomiting Sodium Bicarbonate (Sodium Bicarbonate 650 Mg Tablet) 650 mg PO DAILY [facility] Last Admin: 11/29/24 08:12 Dose: 650 mg Documented By: WALLY Sodium Chloride (0.9 % Sodium Chloride Flush 3 Ml Syringe) 3 ml IVFLUSH QSHIFT [facility] Last Admin: 11/29/24 08:09 Dose: 3 ml Documented By: WALLY Spironolactone (Spironolactone 25 Mg Tablet) 12.5 mg PO DAILY [facility]; Protocol Last Admin: 11/29/24 08:11 Dose: 12.5 mg Documented By: WALLY Tiotropium [place] (Tiotropium [place] 2.5 Mcg 1 Puff/2.5 Mcg Mist.Inhal) 2 puff INHALE RDAILY [facility] Last Admin: 11/29/24 08:10 Dose: 2 puff Documented By: DENISE Labs 11/26/24 06:10 11/29/24 07:00 Labs: Laboratory Results - last 24 hr 11/28/24 11/28/24 11/28/24 08:39 11:11 16:16 Hold Purple Top SEE NOTE Anion Gap Estim Creat Clear Calc Estimated GFR POC Glucose 311 H 105 Random Glucose Calcium 11/28/24 11/29/24 11/29/24 20:20 05:52 07:00 Hold Purple Top SEE NOTE SEE NOTE Anion Gap 14 Estim Creat Clear Calc 30.2 Estimated GFR 37 POC Glucose 172 H Random Glucose 208 H Calcium 8.5 11/29/24 07:24 Hold Purple Top Anion Gap Estim Creat Clear Calc Estimated GFR POC Glucose 184 H Random Glucose Calcium Assessment and Plan (1) CHF (congestive heart failure): Status: Acute Plan 79-year-old male with pertinent history of congestive heart failure with preserved ejection fraction, chronic hypoxemic respiratory failure due to COPD on 4 L supplemental oxygen, coronary artery disease, hypertension, hyperlipidemia, insulin-dependent diabetes mellitus, chronic kidney disease presents to the emergency department for evaluation of dyspnea. Acute on chronic hypoxemic respiratory failure due to decompensated diastolic heart failure negative 4.6L thus far continue IV lasix, 40mg BID strict I's and O's. Low-salt diet. continue jardiance, BB, aldactone seen by cardiology follow BMP, BNP chest ct due to continued hypoxia overnight sleep study for possible roel (nighttime hypoxia) CKD stage 3 with chronic metabolic acidosis Creatinine at baseline. Continue to monitor with diuresis continue baseline sodium bicarb COPD No exacerbation during admission. Continue home inhalers Coronary artery disease On dual antiplatelet therapy, statin, coreg, imdur Insulin-dependent diabetes mellitus continue low dose lantus and SSI, uptitrate lantus as needed DVT prophylaxis: Lovenox Full code requires ongoing inpatient stay for supplemental oxygen, IV diuresis (as above), which is not possible in a lesser acute setting. Quality Stroke Does the patient have a stroke diagnosis?: No VTE Prior VTE?: No VTE Risk Level:: Medical - moderate - high VTE Device Contraindication: Treatment Not Indicated VTE Drug Contraindication: N/A - Med Ordered
[2024-11-29 11:34] LABS: Glucose, Whole Blood 187 mg/dL (60-115)
--- NOTE | 2024-11-29 11:43 | P.PNCA_ITS ---
Subjective Subjective Date of Service: 11/29/24 Principal diagnosis: Decompensated CHF. Interval history: Patient continues to have shortness of breath nighttime with hypoxemia. Also notice hypoxemic with minimal exertion. Has been diuresing well. Creatinine is slightly higher than before. Denies any palpitations. Review of Systems Constitutional: Reports fatigue and Reports weakness Cardiovascular: Denies chest pain, Denies lightheadedness, Denies Loss of Consciousness, Denies palpitations, Reports dyspnea on exertion and Reports orthopnea Respiratory: Reports cough, Reports dyspnea on exertion and Reports wheezing Musculoskeletal: Reports no additional musculoskeletal complaints Skin/Breast: Reports system reviewed and no additional complaints, except as docu Reports weakness Psychiatric: Reports no additional psychiatric complaints Endocrine: Reports fatigue and Denies palpitations Allergic/Immunologic: Reports wheezing Physical Exam Vital Signs: Last Vital Signs Temp 97.0 F 11/29/24 07:21 Pulse 113 H 11/29/24 11:16 Resp 18 11/29/24 11:16 BP 124/57 L 11/29/24 07:21 Pulse Ox 94 11/29/24 07:21 O2 Del Method Oxymask 11/29/24 07:21 O2 Flow Rate 5.0 11/29/24 07:21 Oxygen Flow Rate 4 11/25/24 17:05 BMI result Body Mass Index 32.1 Const General: cooperative, comfortable and in distress mild and respiratory Nutritional Appearance: obese Orientation/consciousness: patient oriented x3 Neck Neck: Yes trachea midline, Yes supple and Yes no JVD Resp Effort & Inspection: normal respiratory effort Auscultation: rales bilateral at the base Cardio Rate: regular rate Rhythm: regular rhythm Heart sounds: S1 normal heart sound present, S2 normal heart sound present, no click, no gallops and no murmurs GI Auscultation: normal bowel sounds Neuro General: patient oriented x3 and no focal motor deficits Extrem General: No edema Objective Labs and Meds 11/26/24 06:10 11/29/24 07:00 Lab results: Laboratory Results - last 24 hr 11/28/24 11/28/24 11/29/24 16:16 20:20 05:52 Hold Purple Top SEE NOTE Sodium Potassium Chloride Carbon Dioxide Anion Gap BUN Creatinine Estim Creat Clear Calc Estimated GFR POC Glucose 105 172 H Random Glucose Calcium 11/29/24 11/29/24 11/29/24 07:00 07:24 11:26 Hold Purple Top SEE NOTE Sodium 133 L Potassium 4.4 Chloride 100 Carbon Dioxide 22 Anion Gap 14 BUN 44 H Creatinine 1.78 H Estim Creat Clear Calc 30.2 Estimated GFR 37 POC Glucose 184 H 187 H Random Glucose 208 H Calcium 8.5 Progress Note: A&P Assessment and plan (1) Acute and chronic respiratory failure with hypoxia: Status: Acute Assessment and Plan: Acute on chronic respiratory failure with hypoxemia. Persistent hypoxemia despite adequate diuresis. Question underlying atelectasis question mucus plugging. Consider pulmonary consultation. Consider noncontrast high- resolution spiral CT to assess for pulmonary parenchymal disease. Question PE. Continue IV diuresis, see below. (2) CHF exacerbation: Status: Acute Assessment and Plan: Patient persistent hypoxemia and has been diuresing well. Creatinine is slightly increasing. BNP still was elevated yesterday. Will recheck BNP tomorrow. Continue IV diuresis for 1 more day. Continue Jardiance. Hypoxemia appears to be out of proportion to CHF treatment. Treatment and follow-up as above. Will follow with you Time Spent With Patient Time: Total time managing care of this patient today ____ minutes. Progress Note: Quality Stroke Does the patient have a stroke diagnosis?: No Procedures Date of Service Date of Service: 11/29/24
--- NOTE | 2024-11-29 14:43 | MHC.CM.PN ---
Addendum entered by Patrica De Souza RN 11/29/24 14:44: They are aware PT eval is pending. Will discuss dc plan once PT eval is complete. Goal is home resume [employer]/[facility] services. Original Note: CM met with patient and family at bedside per request. Granddaughter expressing concerns re: O2 requirement. Patient on 4L at baseline, now requiring 5L. Current home O2 tank only goes up to 5L. Granddaughter will discuss w/ RT and [employer].
[2024-11-29] MEDS: cefTRIAXone sodium 1 GM VIAL IVPUSH (16:15)
[2024-11-29] MEDS: Azithromycin 500 MG in 0.9 % Sodium Chloride 250 ML 125 MG IV (16:15)
[2024-11-29 16:56] LABS: Glucose, Whole Blood 224 mg/dL (60-115)
--- NOTE | 2024-11-29 17:41 | PM.CNPUL ---
History of Present Illness History of Present Illness Consult date: 11/29/24 Chief complaint: Dyspnea Narrative: This is an in patient pulmonary consultation. This is a 79-year-old male with pertinent history of congestive heart failure with preserved ejection fraction, chronic hypoxemic respiratory failure due to COPD on 4 L supplemental oxygen, coronary artery disease, hypertension, hyperlipidemia, insulin-dependent diabetes mellitus, chronic kidney disease presents to the emergency department for evaluation of dyspnea. Patient states his symptoms started 1 day prior to presentation. He has been having dyspnea which is worse with exertion. Also dyspnea is worse when he lays flat. Patient has to sit up due to shortness of breath. No cough, fever or chills. Patient denies chest pain, palpitations, abdominal pain, changes in urinary or bowel habits. Does endorse lower extremity leg swelling. The patient did have a CT scan of the chest which I personally reviewed demonstrating left upper lobe pneumonia and RLL pneumonia. Currently on broad spectrum antibiotics. He is on 5L/min oxygen, baseline is 3.5. Overnight, though his oxygen requierements increased, likely untreated LARRY. Will trial CPAP overnight in the meantime. Review of Systems Constitutional: Constitutional: Reports fatigue and Reports weakness Cardiovascular: Cardiovascular: Denies chest pain, Denies lightheadedness, Denies Loss of Consciousness, Denies palpitations, Reports dyspnea on exertion and Reports orthopnea Respiratory: Respiratory: Reports cough, Reports dyspnea on exertion and Reports wheezing Musculoskeletal: Musculoskeletal: Reports no additional musculoskeletal complaints Integumentary/Breasts: Skin/Breast: Reports system reviewed and no additional complaints, except as docu Neurologic: Reports weakness Psychiatric: Psychiatric: Reports no additional psychiatric complaints Endocrine: Endocrine: Reports fatigue and Denies palpitations Allergic/Immunologic: Allergic/Immunologic: Reports wheezing [facility] Past Medical History Medical History (Updated 11/29/24 @ 18:37 by Andrea Gonzalez MD) LARRY (obstructive sleep apnea) Acute and chronic respiratory failure with hypoxia Acute on chronic heart failure with preserved ejection fraction (HFpEF) Pneumonia Acute non-ST elevation myocardial infarction (NSTEMI) Adult respiratory distress syndrome Hyperlipidemia Hypertension Diabetes mellitus, type 2 Chronic respiratory failure with hypoxia COPD (chronic obstructive pulmonary disease) CKD (chronic kidney disease) CHF (congestive heart failure) Coronary artery disease Family History Family History Other Cancer Surgical History Surgical History S/P coronary artery stent placement Social History Social History Household Members: Family Housing: House Do you presently have visiting nurse or other home services: No Alcohol intake: never Patient Tobacco Use Status: Former Tobacco user Smoked in Last 30 Days: No Second Hand Smoke Exposure: No Use of substances other than those prescribed or required for medical reasons: No Currently Displaying Signs/Symptoms of Drug Intoxication Withdrawal: No Have you been hit, kicked, punched, or otherwise hurt by someone within the past year? 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 Advance Directives: No Advance Directives Information Provided: No Advance Directives on File: No Do you have a plan to hurt others: No Plan Recently lost weight without trying: No Eating poorly because of decreased appetite: No Nutrition Risks: No Nutritional Risk Poor oral hygiene: No service: No Meds Allergies Allergy/AdvReac Type Severity Reaction Status Date / Time No Known Allergies Allergy Verified 11/25/24 17:13 Active Medications: Current Medications Acetaminophen (Acetaminophen 325 Mg Tablet) 650 mg PO Q6H PRN PRN Reason: Pain, Mild 1-3,fever,headache Last Admin: 11/29/24 00:31 Dose: 650 mg Albuterol/Ipratropium (Albuterol/Iprat 2.5/0.5mg 3 Ml Ampul.Neb) 3 ml INHALE Q4H PRN PRN Reason: Shortness of Breath/Wheezing Albuterol/Ipratropium (Albuterol/Iprat 2.5/0.5mg 3 Ml Ampul.Neb) 3 ml INHALE RQ4H WHILE AWAKE [facility] Last Admin: 11/29/24 15:39 Dose: 3 ml Aspirin (Aspirin 81 Mg Tab.Chew) 81 mg PO DAILY [facility] Last Admin: 11/29/24 08:08 Dose: 81 mg Atorvastatin Calcium (Atorvastatin Calcium 80 Mg Tablet) 80 mg PO DAILY [facility] Last Admin: 11/29/24 08:09 Dose: 80 mg Calcium Carbonate (Calcium Carbonate 750 Mg Tab.Chew) 750 mg PO Q4H PRN PRN Reason: Heartburn Carvedilol (Carvedilol 3.125 Mg Tablet) 3.125 mg PO BID [facility]; Protocol Last Admin: 11/29/24 08:08 Dose: 3.125 mg Ceftriaxone Sodium (Ceftriaxone Sodium 1 Gm Vial) 1 gm IVPUSH Q24H [facility] Last Admin: 11/29/24 16:15 Dose: 1 gm Empagliflozin (Empagliflozin 25 Mg Tablet) 25 mg PO DAILY [facility] Last Admin: 11/29/24 08:08 Dose: 25 mg Enoxaparin Sodium (Enoxaparin Sodium 40 Mg/0.4 Ml Syringe) 40 mg SUBCUT Q24H [facility] Last Admin: 11/28/24 22:11 Dose: 40 mg Ferrous Sulfate (Ferrous Sulfate 324 Mg Tablet.Dr) 324 mg PO DAILY [facility] Last Admin: 11/29/24 08:10 Dose: 324 mg Furosemide (Furosemide 40 Mg/4 Ml Vial) 40 mg IVPUSH BID@0900,1800 [facility]; Protocol Last Admin: 11/29/24 17:15 Dose: 40 mg Glucose (Glucose Gel 15 Gm Gel..Gram.) 15 gm PO Q15M PRN; Protocol PRN Reason: per Hypoglycemia Standing Ord. Dextrose (D10) 250 mls @ 750 mls/hr IV Q15M PRN; Protocol PRN Reason: per Hypoglycemia Standing Ord. Azithromycin 500 mg/ Sodium (Chloride) 250 mls @ 125 mls/hr IV Q24H [facility] Last Admin: 11/29/24 16:15 Dose: 125 mls/hr Insulin Glargine (Insulin Glargine,Hum.Rec.Anlog 100 Unit/Ml 10 Ml Vial) 5 unit SUBCUT BEDTIME [facility] Last Admin: 11/28/24 22:13 Dose: 5 unit Insulin Human Lispro (Insulin Lispro 100 Unit/Ml 3 Ml Vial) 0 unit SUBCUT QIDACHS [facility]; Protocol Last Admin: 11/29/24 17:15 Dose: 4 unit Isosorbide Mononitrate (Isosorbide Mononitrate 30 Mg Tab.Er.24h) 15 mg PO DAILY [facility]; Protocol Last Admin: 11/29/24 08:10 Dose: 15 mg Magnesium Hydroxide (Milk Of Magnesia 30 Ml Oral.Susp) 30 ml PO DAILY PRN PRN Reason: Constipation Melatonin (Melatonin 3 Mg Tablet) 6 mg PO BEDTIME PRN PRN Reason: Insomnia Multivitamins/Vitamin C (Multivitamin Tablet) 1 tab PO BID [facility] Last Admin: 11/29/24 08:08 Dose: 1 tab Nystatin (Nystatin Powder 15 Gm Bottle) 1 appl TOPICAL BID PRN; Protocol PRN Reason: Rash Ondansetron HCl (Ondansetron Hcl 4 Mg/2 Ml Vial) 4 mg IVPUSH Q8H PRN PRN Reason: Nausea and Vomiting Sodium Bicarbonate (Sodium Bicarbonate 650 Mg Tablet) 650 mg PO DAILY [facility] Last Admin: 11/29/24 08:12 Dose: 650 mg Sodium Chloride (0.9 % Sodium Chloride Flush 3 Ml Syringe) 3 ml IVFLUSH QSHIFT [facility] Last Admin: 11/29/24 16:30 Dose: Not Given Spironolactone (Spironolactone 25 Mg Tablet) 12.5 mg PO DAILY [facility]; Protocol Last Admin: 11/29/24 08:11 Dose: 12.5 mg Tiotropium [place] (Tiotropium [place] 2.5 Mcg 1 Puff/2.5 Mcg Mist.Inhal) 2 puff INHALE RDAILY [facility] Last Admin: 11/29/24 08:10 Dose: 2 puff Home Medications ?Medication ?Instructions ?Recorded ?Confirmed ?Last Taken ?Type aspirin 81 mg chewable tablet 1 tab PO DAILY 10/03/23 11/26/24 11/25/24 History atorvastatin 80 mg tablet 80 mg PO DAILY 10/03/23 11/26/24 11/25/24 History empagliflozin 10 mg tablet 25 mg PO DAILY 10/03/23 11/26/24 11/25/24 History (Jardiance) ferrous sulfate 325 mg (65 mg 325 mg PO DAILY 10/03/23 11/26/24 11/25/24 History iron) tablet insulin aspart U-100 100 unit/mL See Protocol subcut TIDAC 10/03/23 11/26/24 11/25/24 History (3 mL) subcutaneous pen (Novolog FlexPen U-100 Insulin aspart) umeclidinium 62.5 mcg/actuation 1 inh inhalation DAILY 10/03/23 11/26/24 11/25/24 History blister powder for inhalation (Incruse Ellipta) nitroglycerin 0.4 mg sublingual 0.4 mg sublingual Q5M PRN Chest 10/29/23 11/26/24 11/25/24 History tablet Pain nystatin 100,000 unit/gram topical 1 appl topical BID PRN Rash 10/29/23 11/26/24 11/25/24 History powder vit C 250 mg-vit E 90 mg-zinc 40 1 cap PO BID 10/29/23 11/26/24 11/25/24 History mg-copper 1 [id number] capsule (PreserVision AREDS-2) insulin glargine 100 unit/mL 13 unit subcut BEDTIME 11/05/24 11/26/24 11/25/24 History subcutaneous solution (Lantus U-100 Insulin) torsemide 20 mg tablet 10 mg PO DAILY 11/05/24 11/26/24 11/25/24 History Physical Exam Vital Signs: Vital Signs: Last Vital Signs Temp 96.8 F 11/29/24 16:00 Pulse 94 11/29/24 16:00 Resp 18 11/29/24 16:00 BP 124/71 11/29/24 16:00 Pulse Ox 95 11/29/24 16:00 O2 Del Method Nasal Cannula 11/29/24 16:00 O2 Flow Rate 5.0 11/29/24 16:00 Oxygen Flow Rate 4 11/25/24 17:05 BMI result Body Mass Index 32.1 Const: General: cooperative, comfortable and in distress mild and respiratory Nutritional Appearance: obese Orientation/consciousness: patient oriented x3 Neck: Neck: Yes trachea midline, Yes supple and Yes no JVD Chest: Chest palpation & inspection: normal inspection of the chest Resp: Effort & Inspection: normal respiratory effort Auscultation: rales bilateral at the base Cardio: Rate: regular rate Rhythm: regular rhythm Heart sounds: S1 normal heart sound present, S2 normal heart sound present, no click, no gallops and no murmurs GI: Auscultation: normal bowel sounds Neuro: General: patient oriented x3 and no focal motor deficits Extrem: General: No edema Results Laboratory Findings 11/26/24 06:10 11/29/24 07:00 ABG, PT/INR, D-dimer: PT/INR, D-dimer PT 14.0 SEC (10.9-12.4) H 11/25/24 17:45 INR 1.2 (0.9-1.1) H 11/25/24 17:45 Abnormal lab findings: Abnormal Labs 11/25/24 11/25/24 11/26/24 17:45 21:45 06:10 RBC 4.51 L Hgb 13.1 L 13.3 L Hct 40.3 L 40.9 L Immature Gran % (Auto) 0.8 H 0.5 H Neut % (Auto) 74.2 H 74.3 H Lymph % (Auto) 15.7 L 16.3 L Abs Immat Gran (auto) 0.08 H 0.04 H PT 14.0 H INR 1.2 H Sodium Carbon Dioxide 20 L 18 L BUN 44 H 43 H Creatinine 1.42 H 1.57 H POC Glucose 135 H Random Glucose Calcium 8.0 L B-Natriuretic Peptide 1380 H Albumin 2.8 L 11/26/24 11/26/24 11/27/24 11:43 16:16 06:20 RBC Hgb Hct Immature Gran % (Auto) Neut % (Auto) Lymph % (Auto) Abs Immat Gran (auto) PT INR Sodium Carbon Dioxide 20 L BUN 40 H Creatinine 1.57 H POC Glucose 279 H 172 H Random Glucose Calcium 8.3 L B-Natriuretic Peptide 555 H Albumin 11/27/24 11/27/24 11/27/24 11:10 16:06 20:56 RBC Hgb Hct Immature Gran % (Auto) Neut % (Auto) Lymph % (Auto) Abs Immat Gran (auto) PT INR Sodium Carbon Dioxide BUN Creatinine POC Glucose 212 H 152 H 186 H Random Glucose Calcium B-Natriuretic Peptide Albumin 11/28/24 11/28/24 11/28/24 07:23 11:11 20:20 RBC Hgb Hct Immature Gran % (Auto) Neut % (Auto) Lymph % (Auto) Abs Immat Gran (auto) PT INR Sodium Carbon Dioxide BUN 39 H Creatinine 1.63 H POC Glucose 143 H 311 H 172 H Random Glucose 150 H Calcium B-Natriuretic Peptide 672 H Albumin 11/29/24 11/29/24 11/29/24 07:00 07:24 11:26 RBC Hgb Hct Immature Gran % (Auto) Neut % (Auto) Lymph % (Auto) Abs Immat Gran (auto) PT INR Sodium 133 L Carbon Dioxide BUN 44 H Creatinine 1.78 H POC Glucose 184 H 187 H Random Glucose 208 H Calcium B-Natriuretic Peptide Albumin 11/29/24 16:52 RBC Hgb Hct Immature Gran % (Auto) Neut % (Auto) Lymph % (Auto) Abs Immat Gran (auto) PT INR Sodium Carbon Dioxide BUN Creatinine POC Glucose 224 H Random Glucose Calcium B-Natriuretic Peptide Albumin Diagnostic Findings CT scan - chest: image reviewed and other Additional studies: Assessment and Plan (1) Acute and chronic respiratory failure with hypoxia: Status: Acute (2) Pneumonia: Qualifiers: Laterality: left Lung location: unspecified part of lung Pneumonia type: due to unspecified organism Qualified Code(s): J18.9 - Pneumonia, unspecified organism Status: Acute (3) LARRY (obstructive sleep apnea): Status: Acute (4) CHF (congestive heart failure): Qualifiers: Heart failure type: unspecified Heart failure chronicity: unspecified Qualified Code(s): I50.9 - Heart failure, unspecified Status: Acute Plan Continue antibiotic coverage continue oxygen therapy to keep pox >90% ok to trial CPAP at night diuresis as tolerated MRSA screen Urine strep/legionella Procedures Date of Service Date of Service: 11/29/24
--- NOTE | 2024-11-29 18:47 | PC.NURSE ---
D/C'd #20 IV from Right AC - skin reddened, and purulent d/c from insertion site. Pt denies pain. notified
[2024-11-29] MEDS: Enoxaparin Sodium 40 MG/0.4 ML SYRINGE SUBCUT (19:49)
[2024-11-29 20:57] LABS: Glucose, Whole Blood 185 mg/dL (60-115)
[2024-11-29] MEDS: Insulin Glargine,Hum.rec.anlog 100 UNIT/ML 10 ML VIAL SUBCUT (21:34)
[2024-11-30] VITALS (15 sets, daily range): BP systolic 90–156; BP diastolic 48–70; PULSE 74–130; RESP 16–18; TEMP 35.7–36.3; O2SAT 89–97
--- NOTE | 2024-11-30 05:43 | PC.NURSE ---
0-cpap applied by respiratory therapist, pt agreeable, oxygen at 6 liters. HOB up, pt with no stated discomforts, voiding to bedside urinal, 97.3-87-18-139/65, cardiac rhythm SR on tele monitor. O2 sat probe to finger and being monitored, noted with deep sleep sats range from 83-88%, then if awakened will rise to 90-92%, color wnl, skin w/d, no s/sx resp distress. Resp to room at least 4 times, oxygen and cpap settings were adjusted, oxygen up to max 10 liters for short time, however, sats continued to fluctuate. From RN report and staff on duty, and notes, this is baseline. monitored closely, new finger probe placed, and pt continued to deny pain or SOB. Around 444 patient asked to have cpap removed, resp made aware, removed and back to 6 liters n/c, maintaining in mid to low 90's range. MRSA swabs collected as ordered previous shift, mia well and sent to lab. will continue to monitor
--- NOTE | 2024-11-30 07:00 | CA_ITS ---
Transthoracic Echocardiogram Patient (Last, First, Middle): Misael Gómez, Gender: Male Date of : 1945 Age: 79 Procedure Date: 11/30/2024 Procedure Type: Transthoracic Echocardiogram Location: S3E Height: 157.48 cm Weight: 79.38 kg BSA: 1.81 m2 Heart Rate: 82 bpm BP: 156 / 70 mmHg Director Hr Communications: SB Referring MD: Mariana Gonzalez NP Symptoms: continued hypoxia, chf Study Quality: Adequate w contrast ECG Rhythm: Sinus Conclusions: - The left ventricular systolic function is normal. The calculated ejection fraction is 65% by biplane method. - There is moderate calcification of the aortic valve. Trace to mild aortic regurgitation. Findings Procedure Information Contrast agent, definity, is being given per protocol without apparent complications. The quality of the study was technically difficult. The study quality is limited by patients body habitus and lung artifact. Left Ventricle Normal left ventricular cavity size. The left ventricular systolic function is normal. The calculated ejection fraction is 65% by biplane method. Evidence suggests grade I (mild) diastolic dysfunction. There is mild septal asymmetric hypertrophy. Possible basal inferior wall hypokinesis. Right Ventricle Normal right ventricular cavity size. There is low normal right ventricular systolic function. Atria Both atria are normal in size. Aortic Valve There is moderate calcification of the aortic valve. There is no aortic valve stenosis. Trace to mild aortic regurgitation. Mitral Valve The mitral valve appears normal. There is mild mitral annular calcification. There is no mitral valve regurgitation. There is no mitral valve stenosis. Pulmonic Valve The pulmonic valve is likely normal. Tricuspid Valve There is trace tricuspid valve regurgitation. There is no evidence of pulmonary hypertension. Great Vessels The asc aorta is normal in size. Venous The inferior vena cava was not well visualized. Probably normal size. Pericardium/Pleural There is no evidence of pericardial effusion. Prior Study Comparison No significant change compared to prior study dated: 10/03/2023. Measurements 2D Linear Measurements IVSd: 1.06 0.6-0.9/0.6-1.0 cm LVIDd: 3.98 3.9-5.3/4.2-5.9 cm LVIDd Index: 2.20 2.4-3.2/2.2-3.1 cm/m2 LVIDs: 1.74 2.0-3.6 cm LVPWd: 0.74 0.7-1.1 cm LA Diam: 3.00 2.7-3.8/3.0-4.0 cm LAIDs Index: 1.66 1.5-2.3 cm/m2 LV Mass: 135.26 67-162/88-224 g LV Mass Index: 74.73 43-95/49-115 g/m2 LVOT Diam: 2.10 3.0+(-)1.3 cm 2D Systolic Function EF 4C: 68.50 >55% EF 2C: 59.20 >55% EF BiP: 64.50 >55% Mitral Valve MV Pk E: 0.56 MV PK A: 0.87 MV Decel Time: 306.00 E/A: 0.60 E'Lateral: 4.03 E'Medial: 2.72 E/E' Med: 20.60 E/E' Lat: 13.90 PHT: 90.00 MVA PHT: 2.44 Decel [place]: 1.83 Aortic Valve AoV Pk Rayray: 1.62 AoV Mn Rayray: 1.06 AoV VTI: 0.28 AoV Pk Grad: 10.00 Aov Mn Grad: 5.00 ANGUS Cont.VTI: 2.34 AI Pk Rayray: 2.95 AI [place]: 1.32 LVOT LVOT Pk Rayray: 1.01 LVOT Mn Rayray: 0.66 LVOT VTI: 0.19 LVOT Pk Grad: 4.00 LVOT Mn Grad: 2.00 LVOT Diam: 2.10 LVOT Area: 3.46 Diastolic Function MV Pk E: 0.56 MV Pk A: 0.87 E/A: 0.60 E'Medial: 2.72 E/E' Med: 20.60 E' Laterial: 4.03 E/E' Lat: 13.90 Right Ventricle TAPSE (mm): 17.80 TVS' Rayray: 10.60 Tricuspid Valve TR Pk Rayray: 2.07 TR Pk Grad: 17.00 RA Press: 3.00 RVSP: 20.00 Great Vessels Aorta Sinus of Valsalva: 3.50 2.0-3.5 cm Ao Asc: 3.30 2.1-3.4 cm Pulmonary Valve PV Pk Rayray: 0.67 Peak PV Grad: 2.00 Updated in Other Vendor System with Status of Final Stanley Coelho MD electronically signed on 11/30/2024 10:53:51 AM with status of Final
[2024-11-30 07:07] LABS: Anion Gap 17 (12-20); Blood Urea Nitrogen 53 mg/dL (9-16); Calcium 8.5 mg/dL (8.4-10.2); Carbon Dioxide 22 mmol/L (22-29); Chloride 98 mmol/L (96-108); Creatinine Clr Calc Pharmacy 28.3; Estimated Glomerular Filt Rate 34; Glucose Random 175 mg/dL (60-115); Potassium 4.3 mmol/L (3.3-5.1); Sodium 133 mmol/L (135-145)
[2024-11-30] MEDS: Albuterol/Iprat 2.5/0.5MG 3 ML AMPUL.NEB INHALE ×4 (07:27→19:54)
[2024-11-30] MEDS: Tiotropium Bromide 2.5 mcg 1 PUFF/2.5 MCG MIST.INHAL 2 PUFF INHALE (07:27)
--- NOTE | 2024-11-30 07:28 | PC.RT ---
Pt continued to desat last night on cpap. increase 02 to 10 l of 02 per rt/rn. Will speak today to hospitalist and Dr. Gonzalez regarding sleep study for tonight.
[2024-11-30 07:47] LABS: Glucose, Whole Blood 182 mg/dL (60-115)
[2024-11-30] MEDS: Insulin Lispro 100 UNIT/ML 3 ML VIAL SUBCUT ×3 (07:58→21:25)
[2024-11-30] MEDS: Isosorbide Mononitrate 30 MG TAB.ER.24H 15 MG PO (08:00)
[2024-11-30] MEDS: Atorvastatin Calcium 80 MG TABLET PO (08:00)
[2024-11-30] MEDS: 0.9 % Sodium Chloride Flush 3 ML SYRINGE IVFLUSH ×3 (08:00→20:13)
[2024-11-30] MEDS: Spironolactone 25 MG TABLET 12.5 MG PO (08:02)
[2024-11-30] MEDS: carvediloL 3.125 MG TABLET PO ×2 (08:02→21:25)
[2024-11-30] MEDS: Empagliflozin 25 MG TABLET PO (08:02)
[2024-11-30] MEDS: Ferrous Sulfate 324 MG TABLET.DR PO (08:02)
[2024-11-30] MEDS: Sodium Bicarbonate 650 MG TABLET PO (08:03)
[2024-11-30] MEDS: Multivitamin TABLET 1 TAB PO ×2 (08:03→21:25)
[2024-11-30] MEDS: Furosemide 40 MG/4 ML VIAL IVPUSH (08:04)
[2024-11-30] MEDS: Aspirin 81 MG TAB.CHEW PO (08:10)
--- NOTE | 2024-11-30 08:53 | P.PNIM_ITS ---
Subjective Subjective Date of Service: 11/30/24 Interval History: seen and examined this morning follow up for CHF, PNA had cpap overnight and did well Review of Systems Review of Systems: Yes all other systems are reviewed and are negative Constitutional Constitutional: Denies chills and Denies fever(s) Cardiovascular Cardiovascular: Denies chest pain, Denies palpitations and Reports dyspnea on exertion Respiratory Respiratory: Reports dyspnea on exertion Endocrine Endocrine: Denies palpitations Physical Exam 2 Vital Signs: Vital Signs: Last Vital Signs Temp 97.2 F 11/30/24 07:26 Pulse 105 H 11/30/24 07:27 Resp 18 11/30/24 07:27 BP 126/59 L 11/30/24 07:26 Pulse Ox 96 11/30/24 07:26 O2 Del Method Nasal Cannula 11/30/24 07:26 O2 Flow Rate 5.0 11/30/24 07:26 Oxygen Flow Rate 4 11/25/24 17:05 BMI result Body Mass Index 32.1 Appearing in no acute distress lung sounds are clear to auscultation heart regular rate rhythm, clear S1, S2 positive bowel sounds, abdomen is soft, nontender neuro patient is alert x3, no focal deficits Objective Data Active Medications Acetaminophen (Acetaminophen 325 Mg Tablet) 650 mg PO Q6H PRN PRN Reason: Pain, Mild 1-3,fever,headache Last Admin: 11/29/24 00:31 Dose: 650 mg Documented By: ОЛЬГА Albuterol/Ipratropium (Albuterol/Iprat 2.5/0.5mg 3 Ml Ampul.Neb) 3 ml INHALE Q4H PRN PRN Reason: Shortness of Breath/Wheezing Albuterol/Ipratropium (Albuterol/Iprat 2.5/0.5mg 3 Ml Ampul.Neb) 3 ml INHALE RQ4H WHILE AWAKE [facility] Last Admin: 11/30/24 07:27 Dose: 3 ml Documented By: KEVIN Aspirin (Aspirin 81 Mg Tab.Chew) 81 mg PO DAILY [facility] Last Admin: 11/30/24 08:10 Dose: 81 mg Documented By: ROMY Atorvastatin Calcium (Atorvastatin Calcium 80 Mg Tablet) 80 mg PO DAILY [facility] Last Admin: 11/30/24 08:00 Dose: 80 mg Documented By: ROMY Calcium Carbonate (Calcium Carbonate 750 Mg Tab.Chew) 750 mg PO Q4H PRN PRN Reason: Heartburn Carvedilol (Carvedilol 3.125 Mg Tablet) 3.125 mg PO BID [facility]; Protocol Last Admin: 11/30/24 08:02 Dose: 3.125 mg Documented By: ROMY Ceftriaxone Sodium (Ceftriaxone Sodium 1 Gm Vial) 1 gm IVPUSH Q24H [facility] Last Admin: 11/29/24 16:15 Dose: 1 gm Documented By: WALLY Empagliflozin (Empagliflozin 25 Mg Tablet) 25 mg PO DAILY [facility] Last Admin: 11/30/24 08:02 Dose: 25 mg Documented By: ROMY Enoxaparin Sodium (Enoxaparin Sodium 40 Mg/0.4 Ml Syringe) 40 mg SUBCUT Q24H [facility] Last Admin: 11/29/24 19:49 Dose: 40 mg Documented By: MANISH Ferrous Sulfate (Ferrous Sulfate 324 Mg Tablet.Dr) 324 mg PO DAILY [facility] Last Admin: 11/30/24 08:02 Dose: 324 mg Documented By: ROMY Furosemide (Furosemide 40 Mg/4 Ml Vial) 40 mg IVPUSH DAILY [facility]; Protocol Last Admin: 11/30/24 08:04 Dose: 40 mg Documented By: ROMY Glucose (Glucose Gel 15 Gm Gel..Gram.) 15 gm PO Q15M PRN; Protocol PRN Reason: per Hypoglycemia Standing Ord. Dextrose (D10) 250 mls @ 750 mls/hr IV Q15M PRN; Protocol PRN Reason: per Hypoglycemia Standing Ord. Azithromycin 500 mg/ Sodium (Chloride) 250 mls @ 125 mls/hr IV Q24H [facility] Last Infusion: 11/29/24 18:42 Dose: Infused Documented By: WALLY Insulin Glargine (Insulin Glargine,Hum.Rec.Anlog 100 Unit/Ml 10 Ml Vial) 5 unit SUBCUT BEDTIME [facility] Last Admin: 11/29/24 21:34 Dose: 5 unit Documented By: MANISH Insulin Human Lispro (Insulin Lispro 100 Unit/Ml 3 Ml Vial) 0 unit SUBCUT QIDACHS [facility]; Protocol Last Admin: 11/30/24 07:58 Dose: 2 unit Documented By: ROMY Isosorbide Mononitrate (Isosorbide Mononitrate 30 Mg Tab.Er.24h) 15 mg PO DAILY [facility]; Protocol Last Admin: 11/30/24 08:00 Dose: 15 mg Documented By: ROMY Magnesium Hydroxide (Milk Of Magnesia 30 Ml Oral.Susp) 30 ml PO DAILY PRN PRN Reason: Constipation Melatonin (Melatonin 3 Mg Tablet) 6 mg PO BEDTIME PRN PRN Reason: Insomnia Multivitamins/Vitamin C (Multivitamin Tablet) 1 tab PO BID [facility] Last Admin: 11/30/24 08:03 Dose: 1 tab Documented By: ROMY Nystatin (Nystatin Powder 15 Gm Bottle) 1 appl TOPICAL BID PRN; Protocol PRN Reason: Rash Ondansetron HCl (Ondansetron Hcl 4 Mg/2 Ml Vial) 4 mg IVPUSH Q8H PRN PRN Reason: Nausea and Vomiting Sodium Bicarbonate (Sodium Bicarbonate 650 Mg Tablet) 650 mg PO DAILY [facility] Last Admin: 11/30/24 08:03 Dose: 650 mg Documented By: ROMY Sodium Chloride (0.9 % Sodium Chloride Flush 3 Ml Syringe) 3 ml IVFLUSH QSHIFT [facility] Last Admin: 11/30/24 08:00 Dose: 3 ml Documented By: ROMY Spironolactone (Spironolactone 25 Mg Tablet) 12.5 mg PO DAILY [facility]; Protocol Last Admin: 11/30/24 08:02 Dose: 12.5 mg Documented By: ROMY Tiotropium Brooker (Tiotropium Brooker 2.5 Mcg 1 Puff/2.5 Mcg Mist.Inhal) 2 puff INHALE RDAILY [facility] Last Admin: 11/30/24 07:27 Dose: 2 puff Documented By: GUIDIB Labs 11/26/24 06:10 11/30/24 06:05 Labs: Laboratory Results - last 24 hr 11/29/24 11/29/24 11/29/24 11:26 16:52 20:53 Hold Purple Top Anion Gap Estim Creat Clear Calc Estimated GFR POC Glucose 187 H 224 H 185 H Random Glucose Calcium 11/30/24 11/30/24 06:05 07:29 Hold Purple Top SEE NOTE Anion Gap 17 Estim Creat Clear Calc 28.3 Estimated GFR 34 POC Glucose 182 H Random Glucose 175 H Calcium 8.5 Assessment and Plan (1) CHF (congestive heart failure): Status: Acute Plan 79-year-old male with pertinent history of congestive heart failure with preserved ejection fraction, chronic hypoxemic respiratory failure due to COPD on 4 L supplemental oxygen, coronary artery disease, hypertension, hyperlipidemia, insulin-dependent diabetes mellitus, chronic kidney disease presents to the emergency department for evaluation of dyspnea. Acute on chronic hypoxemic respiratory failure due to chest ct due to continued hypoxia showing pulmonary bullous disease and upper lobe with consolidation. started on Rocephin and azithromycin Seen by Pulm>rec abx, check MRSA screen, trial of overnight cpap, urine strep, legionella, oxygen to keep pox >90% overnight sleep study today Acute on chronic hypoxemic respiratory failure due to decompensated diastolic heart failure negative 4.3L thus far continue IV lasix, decrease to daily strict I's and O's. Low-salt diet. continue jardiance, BB, aldactone seen by cardiology follow BMP, BNP possible roel (nighttime hypoxia) CKD stage 3 with chronic metabolic acidosis Creatinine at baseline. Continue to monitor with diuresis continue baseline sodium bicarb COPD No exacerbation during admission. Continue home inhalers Coronary artery disease On dual antiplatelet therapy, statin, coreg, imdur Insulin-dependent diabetes mellitus continue low dose lantus and SSI, uptitrate lantus as needed DVT prophylaxis: Lovenox Full code requires ongoing inpatient stay for supplemental oxygen, IV diuresis (as above), which is not possible in a lesser acute setting. Quality Stroke Does the patient have a stroke diagnosis?: No VTE Prior VTE?: No VTE Risk Level:: Medical - moderate - high VTE Device Contraindication: Treatment Not Indicated VTE Drug Contraindication: N/A - Med Ordered
--- NOTE | 2024-11-30 10:24 | PM.PNCARD ---
Subjective Subjective Date of Service: 11/30/24 Principal diagnosis: Decompensated CHF. Interval history: According to patient, shortness of breath is getting better. Review of Systems Review of Systems Yes all other systems are reviewed and are negative Constitutional: Reports as per HPI and Reports no additional constitutional complaints Eyes: Reports as per HPI and Denies no additional eye complaints Denies system reviewed and no additional complaints, except as documented and Reports as per HPI Cardiovascular: Reports as per HPI, Reports no additional cardiovascular complaints, Denies acrocyanosis, Denies cool extremities, Denies chest pain, Denies leg edema, Denies lightheadedness, Denies palpitations and Reports dyspnea Respiratory: Reports as per HPI, Denies no additional respiratory complaints and Reports dyspnea Gastrointestinal: Reports as per HPI and Denies no additional gastrointestinal complaints Genitourinary: Reports no additional male genitourinary complaints and Reports as per HPI Musculoskeletal: Reports no additional musculoskeletal complaints and Reports as per HPI Skin/Breast: Reports system reviewed and no additional complaints, except as docu Reports system reviewed and no additional complaints, except as documented and Reports as per HPI Psychiatric: Reports no additional psychiatric complaints and Reports as per HPI Endocrine: Reports no additional endocrine complaints, Reports as per HPI and Denies palpitations Hematologic/Lymphatic: Reports no additional hematologic/lymphatic complaints and Reports as per HPI Allergic/Immunologic: Reports no additional allergic/immunologic complaints and Reports as per HPI Physical Exam Vital Signs: Last Vital Signs Temp 97.2 F 11/30/24 07:26 Pulse 105 H 11/30/24 07:27 Resp 18 11/30/24 07:27 BP 126/59 L 11/30/24 07:26 Pulse Ox 96 11/30/24 07:26 O2 Del Method Nasal Cannula 11/30/24 07:26 O2 Flow Rate 5.0 11/30/24 07:26 Oxygen Flow Rate 4 11/25/24 17:05 BMI result Body Mass Index 32.1 Const General: comfortable and no acute distress Orientation/consciousness: patient oriented x3 HEENT Other: Unremarkable Head: Yes normal to inspection Neck Neck: Yes normal visual inspection Chest Chest palpation & inspection: normal inspection of the chest Resp Auscultation: crackles bilateral at the base Cardio Palpation: normal PMI Heart sounds: S1 normal heart sound present, S2 normal heart sound present, no gallops, no murmurs and no rubs GI Palpation (GI): Soft to palpation Back/Spine/Pelvis Other: unremarkable Skin General skin exam: no rashes or lesions noted Neuro General: patient oriented x3 Extrem General: Yes normal to inspection Psych Mental Status: mental status grossly normal Objective Labs and Meds 11/26/24 06:10 11/30/24 06:05 Lab results: Laboratory Results - last 24 hr 11/29/24 11/29/24 11/29/24 11:26 16:52 20:53 Hold Purple Top Sodium Potassium Chloride Carbon Dioxide Anion Gap BUN Creatinine Estim Creat Clear Calc Estimated GFR POC Glucose 187 H 224 H 185 H Random Glucose Calcium 11/30/24 11/30/24 06:05 07:29 Hold Purple Top SEE NOTE Sodium 133 L Potassium 4.3 Chloride 98 Carbon Dioxide 22 Anion Gap 17 BUN 53 H Creatinine 1.90 H Estim Creat Clear Calc 28.3 Estimated GFR 34 POC Glucose 182 H Random Glucose 175 H Calcium 8.5 Progress Note: A&P Assessment and plan (1) Acute and chronic respiratory failure with hypoxia: Status: Acute (2) CHF exacerbation: Status: Acute (3) Chronic kidney disease, stage 3: Status: Acute Plan High sensitivity troponin level within range at 34. Cardiac BNP levels are 1380, 555 and 672. Echocardiogram from 09/2023 with LVEF of 60-65%; basal inferior/inferoseptal hypokinesis; mild diastolic dysfunction. Mild aortic regurgitation. Calcific aortic/mitral valve changes. 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 Possible pneumonia or pulmonary edema. He is being treated for both congestive heart failure as well as COPD/pneumonia and seems to be improving. So far, he is-4.3 L. For medications, on carvedilol, spironolactone, Jardiance, Lasix. Creatinine is 1.9. Better than recent values and probably close to his baseline. Probably change to p.o. diuretics in the next day or so. Time Spent With Patient Time: Total time managing care of this patient today ____ minutes. Progress Note: Quality Stroke Does the patient have a stroke diagnosis?: No Procedures Date of Service Date of Service: 11/30/24
[2024-11-30 11:47] LABS: MRSA Nasal PCR NEGATIVE (Negative); SA Nasal PCR NEGATIVE (Negative)
[2024-11-30 11:52] LABS: Glucose, Whole Blood 235 mg/dL (60-115)
--- NOTE | 2024-11-30 14:44 | MHC.CM.PN ---
PT NOT YET MEDICALLY CLEARED TO DC, PER PT, PT STILL REQUIRING IV DIURESIS AND ON SUPPLEMENTAL 02 PT HAS RECOMMENDED HOME WITH SERVICES, PT ACTIVE WITH ESTRELLA WALKER
[2024-11-30] MEDS: cefTRIAXone sodium 1 GM VIAL IVPUSH (15:38)
[2024-11-30] MEDS: Azithromycin 500 MG in 0.9 % Sodium Chloride 250 ML 125 MG IV (15:43)
[2024-11-30 16:15] LABS: Glucose, Whole Blood 126 mg/dL (60-115)
[2024-11-30] MEDS: Enoxaparin Sodium 40 MG/0.4 ML SYRINGE SUBCUT (20:09)
[2024-11-30 20:36] LABS: Glucose, Whole Blood 240 mg/dL (60-115)
[2024-11-30] MEDS: Insulin Glargine,Hum.rec.anlog 100 UNIT/ML 10 ML VIAL SUBCUT (21:25)
[2024-12-01] VITALS (11 sets, daily range): BP systolic 100–153; BP diastolic 57–69; PULSE 84–110; RESP 16–20; TEMP 35.5–36.6; O2SAT 84–96
[2024-12-01 07:18] LABS: Anion Gap 15 (12-20); Blood Urea Nitrogen 55 mg/dL (9-16); Calcium 8.1 mg/dL (8.4-10.2); Carbon Dioxide 21 mmol/L (22-29); Chloride 99 mmol/L (96-108); Creatinine Clr Calc Pharmacy 28.7; Estimated Glomerular Filt Rate 35; Glucose Random 146 mg/dL (60-115); Potassium 4.4 mmol/L (3.3-5.1); Sodium 131 mmol/L (135-145)
[2024-12-01 07:20] LABS: Glucose, Whole Blood 160 mg/dL (60-115)
[2024-12-01] MEDS: Insulin Lispro 100 UNIT/ML 3 ML VIAL SUBCUT ×2 (07:42→11:58)
[2024-12-01] MEDS: 0.9 % Sodium Chloride Flush 3 ML SYRINGE IVFLUSH (07:42)
[2024-12-01] MEDS: Multivitamin TABLET 1 TAB PO (07:44)
[2024-12-01] MEDS: Sodium Bicarbonate 650 MG TABLET PO (07:44)
[2024-12-01] MEDS: Furosemide 40 MG TABLET PO (07:44)
[2024-12-01] MEDS: Atorvastatin Calcium 80 MG TABLET PO (07:45)
[2024-12-01] MEDS: Ferrous Sulfate 324 MG TABLET.DR PO (07:45)
[2024-12-01] MEDS: Empagliflozin 25 MG TABLET PO (07:45)
[2024-12-01] MEDS: Spironolactone 25 MG TABLET 12.5 MG PO (07:45)
[2024-12-01] MEDS: carvediloL 3.125 MG TABLET PO (07:46)
[2024-12-01] MEDS: Isosorbide Mononitrate 30 MG TAB.ER.24H 15 MG PO (07:46)
[2024-12-01] MEDS: Aspirin 81 MG TAB.CHEW PO (07:46)
[2024-12-01] MEDS: Albuterol/Iprat 2.5/0.5MG 3 ML AMPUL.NEB INHALE ×3 (08:29→15:18)
[2024-12-01 11:14] LABS: Glucose, Whole Blood 289 mg/dL (60-115)
[2024-12-01] MEDS: Enoxaparin Sodium 30 MG/0.3 ML SYRINGE SUBCUT (11:59)
--- NOTE | 2024-12-01 16:09 | P.DS_ITS ---
DS: Providers Provider Date of Service: 12/01/24 Date of admission: 11/25/24 19:44 Date of discharge: 12/01/24 Primary care physician: Elisa Lyman MD Consults: 11/25/24 22:47 Consult to Wound Care Routine Reason for consultation: skin fungus 11/26/24 07:42 Consult to Cardiology Routine Consulting Provider: [facility] Reason for consultation: chf Has provider been notified: No 11/29/24 14:34 Consult to Pulmonology Routine Consulting Provider: [facility] Reason for consultation: pulm bullous DS: Diagnosis Discharge Diagnosis (1) Acute and chronic respiratory failure with hypoxia: Status: Acute (2) CHF exacerbation: Status: Acute (3) Chronic kidney disease, stage 3: Status: Acute DS: Summary Hospital Course Hospital Course: History and physical as per admitting provider. This is a 79-year-old male with pertinent history of congestive heart failure with preserved ejection fraction, chronic hypoxemic respiratory failure due to COPD on 4 L supplemental oxygen, coronary artery disease, hypertension, hyperlipidemia, insulin-dependent fay betes mellitus, chronic kidney disease presents to the emergency department for evaluation of dyspnea. Patient states his symptoms started 1 day prior to presentation. He has been having dyspnea which is worse with exertion. Also dyspnea is worse when he lays flat. Patient has to sit up due to shortness of breath. No cough, fever or chills. Patient denies chest pain, palpitations, abdominal pain, changes in urinary or bowel habits. Does endorse lower extremity leg swelling. In the emergency department, imaging with bilateral pulmonary edema and BNP found to be elevated. Patient was initiated on IV diuresis 79-year-old man treated for acute on chronic hypoxemic respiratory failure secondary to pneumonia, pulmonary bolus disease and decompensated diastolic heart failure. Terms of the heart failure patient has been treated with IV Lasix for several days, spironolactone added as well as Jardiance. He is -4 L. she was seen and evaluated by Cardiology who felt that he could go to oral diuretics. He was also noted to have a pneumonia which she was started on Rocephin and azithromycin and he will continue with a few more days of oral antibiotics at home. He was seen evaluated by pulmonology who recommended checking MRSA screen, which was negative. Urine strep and Legionella still pending. He did have an overnight sleep study which showed a component of sleep apnea, discussed with respiratory therapy and they will arrange for a CPAP machine to be delivered to the patient's home. He also had an ambulating oxygen saturation and will have an increase of oxygen at home to 6 L. plan is to discharge home with family. Hyponatremia. Mild. Likely related to diuresis. CKD stage 3. Baseline during hospitalization COPD no exacerbation during admission. Continue home inhalers Coronary artery disease. On dual antiplatelet therapy, statin, Coreg and Imdur Diabetes mellitus type 2. Continue home medications. Time Attestation Discharge Coordination Time (in mins): 42 Quality: Safe Use of Opioids Does Pt have an Active Cancer Diagnosis on the Problem List?: No Quality: Stroke Does the patient have a stroke diagnosis?: No Physical Exam Vital Signs: Vital Signs: Last Vital Signs Temp 95.9 F L 12/01/24 15:51 Pulse 86 12/01/24 15:51 Resp 16 12/01/24 15:51 BP 153/69 H 12/01/24 15:51 Pulse Ox 91 L 12/01/24 15:51 O2 Del Method Nasal Cannula 12/01/24 15:51 O2 Flow Rate 4 12/01/24 15:51 Oxygen Flow Rate 4 11/25/24 17:05 BMI result Body Mass Index 32.1 Appearing in no acute distress head is normocephalic atraumatic eyes pupils are PERRLA sclera is anicteric mouth throat mucous membranes are intact and moist neck is supple no lymphadenopathy, no JVD noted lung sounds are clear to auscultation heart regular rate rhythm, clear S1, S2 positive bowel sounds, abdomen is soft, nontender neuro patient is alert x3, no focal deficits DS: Data Data Completed and Pending Completed studies during hospitalization [Text1]: Procedures Introduction of Vasopressor into Peripheral Vein, Percutaneous Approach (10/03/23) Labs on day of discharge: Laboratory Results - last 24 hr 11/30/24 11/30/24 12/01/24 16:08 20:29 06:00 Sodium 131 L Potassium 4.4 Chloride 99 Carbon Dioxide 21 L Anion Gap 15 BUN 55 H Creatinine 1.87 H Estim Creat Clear Calc 28.7 Estimated GFR 35 POC Glucose 126 H 240 H Random Glucose 146 H Calcium 8.1 L 12/01/24 12/01/24 07:16 11:06 Sodium Potassium Chloride Carbon Dioxide Anion Gap BUN Creatinine Estim Creat Clear Calc Estimated GFR POC Glucose 160 H 289 H Random Glucose Calcium Discharge Plan Discharge Anticipated Discharge Date/Time: 12/01/24 16:04 Patient Disposition: Home Health Service Discharge Diagnosis: Acute on chronic hypoxemic respiratory failure Pneumonia Decompensated diastolic heart failure Referrals: catina valverde [Other] - 1 Week Elisa Lyman MD [Primary Care Provider] - 1 Week Discharge Medications: New spironolactone 25 mg Tablet 12.5 mg PO DAILY Qty: 30 0RF Protocol: Hold for SBP< HOLD for SBP < : 90 cefuroxime axetil 500 mg tablet 500 mg PO BID Qty: 6 0RF azithromycin 500 mg tablet 500 mg PO DAILY 3 Days Qty: 3 0RF Continued atorvastatin 80 mg tablet 80 mg PO DAILY ferrous sulfate 325 mg (65 mg iron) tablet 325 mg PO DAILY aspirin 81 mg tablet,chewable 1 tab PO DAILY Incruse Ellipta 62.5 mcg/actuation blister with device 1 inh inhalation DAILY Jardiance 10 mg tablet 25 mg PO DAILY insulin aspart U-100 [Novolog FlexPen U-100 Insulin] 100 unit/mL (3 mL) insulin pen See Protocol subcut TIDAC Protocol: Insulin Correction Scale Less than or equal to 110 ---- Give (units): 0 111 to 150 Give (units): 0 151 to 200 Give (units): 2 201 to 250 Give (units): 4 251 to 300 Give (units): 6 301 to 350 Give (units): 8 Greater than 350 Give (units): 10 Call MD if Blood Glucose > : 350 isosorbide mononitrate 30 mg Tablet Extended Release 24 Hr 15 mg PO DAILY Qty: 15 0RF Protocol: Hold for SBP< HOLD for SBP < : 90 Rx Instructions: Replaces prior dose of 120 mg daily carvedilol 3.125 mg Tablet 3.125 mg PO BID Qty: 60 0RF Protocol: Hold for SBP/HR < HOLD for SBP < : 90 HOLD for HR < : 60 Rx Instructions: Replaces prior dose of 6.25 mg bid nitroglycerin 0.4 mg Tablet, Sublingual 0.4 mg SUBLINGUAL Q5M PRN (Reason: Chest Pain) Rx Instructions: do not exceed 3 doses per episode nystatin 100,000 unit/gram Powder 1 appl TOPICAL BID PRN (Reason: Rash) PreserVision AREDS-2 250-90-40-1 mg capsule 1 cap PO BID insulin glargine [Lantus U-100 Insulin] 100 unit/mL solution 13 unit subcut BEDTIME torsemide 20 mg tablet 10 mg PO DAILY sodium bicarbonate 650 mg Tablet 650 mg PO DAILY Qty: 180 0RF Discharge Orders: Discharge Order (Routine); Ordered 12/01/24 Ordered By: Mariana Gonzalez Diet: Advance to usual diet Activity on Discharge: As tolerated Stand Alone Forms: Patient Portal Discharge page Print Language: Citizen Of [place] Care Plan Goals: You have been started on CPAP for sleep apnea, your machine will be delivered to her home Your oxygen usage has increased to 6 L as needed Health Concerns: Acute on chronic hypoxemic respiratory failure Pneumonia Decompensated diastolic heart failure Plan of Treatment: Follow-up with primary care provider as needed Take all medications as prescribed Assessment: See discharge summary
--- NOTE | 2024-12-01 16:12 | MHC.CM.PN ---
pt dcd today catina mccormack notified of dc pt was active family to transport
[2024-12-01 16:18] LABS: Glucose, Whole Blood 81 mg/dL (60-115)
[2024-12-03 22:04] LABS: Strep Pneumo Ag urine Not Detected (Not Detected)
[2024-12-05 02:54] LABS: Legionella Ag Urine Not Detected (Not Detected)
== END 2024-12-01 18:39 | disposition home health service (06) | DRG 291 ==
LOC: HO.ED 18:10 → HO.EDOVER 19:53 → HO.S3 20:27
PROVIDERS: Hospitalist; Physician Assistant Medical; Admitting Provider Student in an Organized Health Care Education/Training Program; Emergency Provider Internal Medicine; PCP Internal Medicine; Visit Provider Nurse Practitioner Acute Care
DX: I13.0 Hypertensive heart and chronic kidney disease with heart failure and stage 1 through stage 4 chronic kidney disease, or unspecified chronic kidney disease (principal); I50.33 Acute on chronic diastolic (congestive) heart failure; J96.21 Acute and chronic respiratory failure with hypoxia; J18.9 Pneumonia, unspecified organism; E87.1 Hypo-osmolality and hyponatremia; J43.9 Emphysema, unspecified; N18.30 Chronic kidney disease, stage 3 unspecified; E11.22 Type 2 diabetes mellitus with diabetic chronic kidney disease; G47.33 Obstructive sleep apnea (adult) (pediatric); I25.10 Atherosclerotic heart disease of native coronary artery without angina pectoris; Z20.822 Contact with and (suspected) exposure to COVID-19; Z99.81 Dependence on supplemental oxygen; Z87.891 Personal history of nicotine dependence; Z79.4 Long term (current) use of insulin; Z79.82 Long term (current) use of aspirin; Z79.899 Other long term (current) drug therapy
CPT/HCPCS: 0241U; 36415; 71045; 71250; 80048; 80053; 82803; 82947; 83735; 83880; 84145; 84484; 85025; 85610; 87449; 87640; 87641; 87899; 93005; 93306; 93971; 94640; 94660; 97162; 99285; J0456; J0696; J1650; J1940; P9047; Q9957

== ENCOUNTER → 2024-11-25 17:06 | Outpatient (BNV) | payer OTHER, SELFPAY | PROVIDERS: Admitting Provider Student in an Organized Health Care Education/Training Program; Emergency Provider Internal Medicine; PCP Internal Medicine; Visit Provider Internal Medicine Cardiovascular Disease | DX: R06.02 Shortness of breath (principal) | CPT/HCPCS: 93010 ==

== ENCOUNTER → 2024-11-25 17:06 | Outpatient (BNV) | payer OTHER, SELFPAY | PROVIDERS: Emergency Provider Internal Medicine; Visit Provider Radiology Diagnostic Radiology | DX: J18.9 Pneumonia, unspecified organism (principal); R22.31 Localized swelling, mass and lump, right upper limb | CPT/HCPCS: 71045; 93971 ==

== ENCOUNTER → 2024-11-25 18:07 | Outpatient (BNV) | payer OTHER, SELFPAY | PROVIDERS: Emergency Provider Internal Medicine; PCP Internal Medicine; Visit Provider Student in an Organized Health Care Education/Training Program | DX: I50.9 Heart failure, unspecified (principal) | CPT/HCPCS: 99223; 99232; 99233 ==

== ENCOUNTER 2024-11-25 19:44 | Outpatient (BNV) | payer OTHER, SELFPAY | END 2024-11-29 09:47 | PROVIDERS: Admitting Provider Student in an Organized Health Care Education/Training Program; Emergency Provider Internal Medicine; PCP Internal Medicine; Visit Provider Specialist | DX: J43.9 Emphysema, unspecified (principal) | CPT/HCPCS: 71250 ==

== ENCOUNTER 2024-11-25 19:44 | Outpatient (BNV) | payer OTHER, SELFPAY | END 2024-11-30 07:00 | PROVIDERS: Admitting Provider Student in an Organized Health Care Education/Training Program; Emergency Provider Internal Medicine; PCP Internal Medicine; Visit Provider Internal Medicine | DX: I35.1 Nonrheumatic aortic (valve) insufficiency (principal); I35.8 Other nonrheumatic aortic valve disorders; I34.81 Nonrheumatic mitral (valve) annulus calcification; I42.2 Other hypertrophic cardiomyopathy; J96.01 Acute respiratory failure with hypoxia | CPT/HCPCS: 93306 ==

== ENCOUNTER → 2024-11-25 19:44 | Outpatient (BNV) | payer OTHER, SELFPAY | PROVIDERS: Admitting Provider Student in an Organized Health Care Education/Training Program; Emergency Provider Internal Medicine; PCP Internal Medicine; Visit Provider Internal Medicine Cardiovascular Disease | DX: I50.9 Heart failure, unspecified (principal) | CPT/HCPCS: 99222 ==

== ENCOUNTER → 2024-11-25 19:44 | Outpatient (BNV) | payer OTHER, SELFPAY | PROVIDERS: Admitting Provider Student in an Organized Health Care Education/Training Program; Emergency Provider Internal Medicine; PCP Internal Medicine; Visit Provider Hospitalist | DX: J96.21 Acute and chronic respiratory failure with hypoxia (principal); J18.9 Pneumonia, unspecified organism; G47.33 Obstructive sleep apnea (adult) (pediatric); I50.9 Heart failure, unspecified | CPT/HCPCS: 99223 ==

== ENCOUNTER 2024-12-29 10:56 | Inpatient (IN) | payer OTHER, SELFPAY ==
[2024-12-29] VITALS (18 sets, daily range): BP systolic 0–184; BP diastolic 0–92; PULSE 0–144; RESP 18–20; TEMP 28.6–36.4; O2SAT 90–98; BMI 33.2
--- NOTE | 2024-12-29 | ECG_ITS ---
Test Reason : TACHY Blood Pressure : */* mmHG Vent. Rate : 130 BPM Atrial Rate : 130 BPM P-R Int : 160 ms QRS Dur : 92 ms QT Int : 328 ms P-R-T Axes : 66 104 39 degrees QTcB Int : 482 ms Sinus tachycardia Low voltage QRS Septal infarct , age undetermined Possible Lateral infarct (cited on or before 29-Dec-2024) Abnormal ECG When compared with ECG of 29-Dec-2024 12:14, Right bundle branch block is no longer Present Septal infarct is now Present Referred By: Cholo Goff Electronically Signed By: Td White
--- NOTE | ~2024-12-29 | CT_ITS ---
EXAMINATION: CT CHEST WITHOUT IV CONTRAST, CT ABDOMEN PELVIS WITHOUT IV CONTRAST INDICATION: Unexpected cardiac arrest COMPARISON: Comparison is made with the prior chest CT dated 11/29/2024. TECHNIQUE: CT scan of the chest, abdomen and pelvis was performed without contrast using standard departmental protocol. Coronal and sagittal reformatted images were generated and reviewed. Oral contrast material was not administered at the request of the referring physician. This CT exam was performed with one or more of the following dose reduction techniques: automated exposure control, adjustment of the mA and/or kV according to patient size, use of iterative reconstruction technique. DLP: 1479.69 mGy-cm CHEST: THYROID: The thyroid is unremarkable. LUNGS: There is moderate respiratory motion artifact. Again seen is consolidation and fibrotic change in the left upper lobe. This is slightly more extensive than on the prior study. There are new confluent airspace opacities in both lower lobes with air bronchograms, consistent with pneumonia or aspiration. MEDIASTINUM: There is no mediastinal lymphadenopathy. [place]: Evaluation of the hilar regions is limited by lack of intravenous contrast material. CARDIOVASCULATURE: The heart is normal in size. There is no pericardial effusion. The thoracic aorta demonstrates marked atherosclerotic calcification, but is normal in caliber. Endotracheal and orogastric tubes are seen in place. DEGREE OF CORONARY CALCIFICATION: severe PLEURA: There is no pleural effusion. No pneumothorax. MAIN AIRWAYS: The mainstem bronchi and proximal branches are patent. AXILLA: There is no axillary lymphadenopathy. SOFT TISSUES: Unremarkable. BONES: There are new fractures of the lateral aspects of the right 3rd, 4th, and 5th ribs and the anterior aspect of the right 6th rib. There are also new fractures of the lateral aspects of the left 3rd, 4th, and 5th ribs. Evaluation of the sternum is limited by respiratory motion artifact. ABDOMEN: LIVER: The liver is normal in size and contour. The liver has an unremarkable unenhanced appearance. GALLBLADDER / BILE DUCTS: There is cholelithiasis. There is no intra or extrahepatic biliary ductal dilatation. SPLEEN: The spleen is normal in size and has an unremarkable unenhanced appearance. PANCREAS: The pancreas has an unremarkable unenhanced appearance. ADRENAL GLANDS: Unremarkable. KIDNEYS/RETROPERITONEUM: No renal calculi are identified. There is no hydronephrosis. There are multiple bilateral renal cysts, the largest of which measure 4.8 cm at the upper pole of the right kidney and 7.4 cm the lower pole of the left kidney. LYMPH NODES: No retroperitoneal lymphadenopathy is identified in the abdomen or pelvis. VASCULATURE: The abdominal aorta demonstrates atherosclerotic calcification, but is normal in caliber. MESENTERY/PERITONEUM: No free fluid. No masses. There is no free intraperitoneal gas. STOMACH: The stomach is collapsed with an orogastric tube. SMALL BOWEL: The small bowel is normal in caliber. COLON: The colon is unremarkable. APPENDIX: Normal. URINARY BLADDER/PELVIC ORGANS: The urinary bladder is collapsed with a Byers catheter. The prostate is normal in size. BONES / SOFT TISSUES: There is degenerative disc disease of the spine. CT/CT abdomen pelvis wo IV con IMPRESSION: 1. New confluent airspace opacities in both lower lobes, consistent with pneumonia or aspiration. Progression of airspace opacity in the left upper lobe since the prior study. 2. Acute fractures of the lateral aspects of the bilateral 3rd, 4th, and 5th ribs, and the anterior aspect of the right 6th rib. 3. Cholelithiasis. Electronically signed by: Serjio Pelletier MD 12/29/2024 03:02 PM [facility]
--- NOTE | ~2024-12-29 | XR_ITS ---
EXAMINATION: XR CHEST CLINICAL INFORMATION: s/p intubation COMPARISON: CT chest 11/29/2024. TECHNIQUE: Frontal view of the chest was obtained. FINDINGS: There is a new endotracheal tube with its tip 1.9 cm and volume the ace. There is a new enteric tube with its tip in the stomach. The lungs are hypoexpanded with patchy opacity seen in the left upper lobe suggestive of infiltrate. Minimal bibasilar atelectasis present. Heart size is borderline normal. Pulmonary vascularity is normal. No gross bony abnormality seen. XR/XR chest 1V IMPRESSION: Hypoexpanded lungs with left upper lobe infiltrate. Bibasilar atelectasis. Enteric tube and endotracheal tube are in satisfactory position. Electronically signed by: Jarod Evans MD 12/29/2024 11:28 AM LILIAN
--- NOTE | ~2024-12-29 | CT_ITS ---
EXAMINATION: CT HEAD WITHOUT CONTRAST CLINICAL INFORMATION: Unexplained cardiac arrest COMPARISON: October 31, 2023. TECHNIQUE: Contiguous axial imaging was performed from the skull base to vertex without intravenous administration of contrast. This CT examination was performed using dose optimization techniques as appropriate, variously including the following: *Automated exposure control *Adjustment of mA and/or kV according to patient size (this includes techniques or standardized protocols for targeted exams where dose is matched to indication/reason for exam; i.e. extremities or head) *Use of iterative reconstruction technique DLP: 695.83 mGy-cm FINDINGS: No acute intracranial hemorrhage, mass effect, midline shift, hydrocephalus or herniation. Bilateral multifocal patchy deep periventricular white matter hypodensity in the supratentorial compartment. Prominence of the extra-axial CSF spaces cerebral sulci and ventricles. Posterior cranial fossa contents demonstrated no acute intracranial hemorrhage or mass effect. Old lacunar infarcts in the cerebellum. The bony calvarium is intact. The skull base is intact. Punctate calcification in the left nostril. F level and effervescent secretions in the sphenoid sinus. Tympanic cavities are aerated. Air-fluid level in the left mastoid antrum. For pneumatization of the mastoid air cells. Calcified plaques in the cavernous supraclinoid segments and petrous segments of the ICAs as well as the V4 segments of the vertebral arteries. ET tube and NG tube in the oropharynx. CT/CT head/brain wo IV con IMPRESSION: No acute intracranial hemorrhage. Hypoxia/anoxia encephalopathy cannot be excluded. Electronically signed by: Jose Myles MD 12/29/2024 02:53 PM [facility] [place]
--- NOTE | 2024-12-29 11:01 | MHC.EDTECH ---
POC 104 CALLED OUT @ 10:57A BY [facility]
--- NOTE | 2024-12-29 11:04 | ECG_ITS ---
Test Reason : CARDIACT ARREST Blood Pressure : */* mmHG Vent. Rate : 138 BPM Atrial Rate : 138 BPM P-R Int : 144 ms QRS Dur : 138 ms QT Int : 328 ms P-R-T Axes : * 146 1 degrees QTcB Int : 496 ms Sinus tachycardia Right bundle branch block Possible Lateral infarct , age undetermined T wave abnormality, consider inferior ischemia Abnormal ECG When compared with ECG of 25-Nov-2024 17:33, Vent. rate has increased by 48 bpm Right bundle branch block is now Present Borderline criteria for Lateral infarct are now Present Referred By: Cara Moore Electronically Signed By: Td White
--- NOTE | 2024-12-29 11:07 | ED.GENADULT ---
HPI - General Adult General Chief complaint: Cardiac Arrest/CPR Stated complaint: Unresponsive Time Seen by Provider: 12/29/24 11:05 History of Present Illness ED Provider: Denver STARR narrative: The patient is an 79-year-old male with a history of multiple medical problems who was apparently on his way to some kind of a doctor's appointment this morning. He was in a car being driven by a family member. Apparently the patient seemed to be passing out and so the family came to the emergency room. In the emergency room parking lot the patient was assessed and seemed unresponsive. CPR was started. After a few minutes the patient had a resumption of spontaneous pulses. According to the family the patient did not been particularly ill in any way this morning. The family member says that the patient has been having exertional dyspnea but that has been stable. Apparently they did not have much trouble getting him into the car. However once the patient was in the car and they were driving to the hospital he started to complain of nausea and feeling unwell. He then passed out and they drove to the emergency room entrance. There was no prodromal complaint of headache or chest pain or other painful complaints. He had not seemed obviously short of breath in the car. Related Data Home Medications ?Medication ?Instructions ?Recorded ?Confirmed aspirin 81 mg chewable tablet 1 tab PO DAILY 10/03/23 12/29/24 atorvastatin 80 mg tablet 80 mg PO DAILY 10/03/23 12/29/24 empagliflozin 10 mg tablet 25 mg PO DAILY 10/03/23 12/29/24 (Jardiance) ferrous sulfate 325 mg (65 mg 325 mg PO DAILY 10/03/23 12/29/24 iron) tablet insulin aspart U-100 100 unit/mL See Protocol subcut TIDAC 10/03/23 12/29/24 (3 mL) subcutaneous pen (Novolog FlexPen U-100 Insulin aspart) umeclidinium 62.5 mcg/actuation 1 inh inhalation DAILY 10/03/23 12/29/24 blister powder for inhalation (Incruse Ellipta) nitroglycerin 0.4 mg sublingual 0.4 mg sublingual Q5M PRN Chest 10/29/23 12/29/24 tablet Pain vit C 250 mg-vit E 90 mg-zinc 40 1 cap PO BID 10/29/23 12/29/24 mg-copper 1 [id number] capsule (PreserVision AREDS-2) insulin glargine 100 unit/mL 13 unit subcut BEDTIME 11/05/24 12/29/24 subcutaneous solution (Lantus U-100 Insulin) torsemide 20 mg tablet 10 mg PO DAILY 11/05/24 12/29/24 clopidogrel 75 mg tablet 75 mg PO DAILY 12/29/24 12/29/24 Previous Rx's ?Medication ?Instructions ?Recorded carvedilol 3.125 mg tablet 3.125 mg PO BID #60 tabs 11/04/23 isosorbide mononitrate 30 mg 15 mg PO DAILY #15 tabs 11/04/23 tablet,extended release 24 hr sodium bicarbonate 650 mg tablet 650 mg PO DAILY #180 tabs 11/10/24 spironolactone 25 mg tablet 12.5 mg PO DAILY #30 tabs 12/01/24 Allergies Allergy/AdvReac Type Severity Reaction Status Date / Time No Known Allergies Allergy Verified 12/29/24 11:20 Review of Systems Review of Systems: Yes Unobtainable due to mental status [facility] Past Medical History Medical History (Updated 12/29/24 @ 17:05 by Silver Alcantar MD) Chronic kidney disease, stage 3 LARRY (obstructive sleep apnea) Acute and chronic respiratory failure with hypoxia Acute on chronic heart failure with preserved ejection fraction (HFpEF) Pneumonia Acute non-ST elevation myocardial infarction (NSTEMI) Adult respiratory distress syndrome Hyperlipidemia Hypertension Diabetes mellitus, type 2 Chronic respiratory failure with hypoxia COPD (chronic obstructive pulmonary disease) CKD (chronic kidney disease) CHF (congestive heart failure) Coronary artery disease Surgical History S/P coronary artery stent placement Family History Family History Other Cancer Social History Social History Household Members: Unknown / Unable to assess Housing: Unknown / Unable to assess Do you presently have visiting nurse or other home services: No Alcohol intake: never Patient Tobacco Use Status: Former Tobacco user Second Hand Smoke Exposure: No Advance Directives Date on File: 12/29/24 service: No Physical Exam ED Vital Signs: Vital Signs - 24 hr 12/29/24 11:13 12/29/24 11:50 12/29/24 12:54 Temperature 97.5 F Pulse Rate 106 H 137 H Respiratory Rate 20 20 Blood Pressure 152/72 H 133/70 Pulse Oximetry 92 Oxygen Delivery Method Mechanical Ventilation Fraction of Inspired Oxygen 100 12/29/24 13:32 12/29/24 14:04 12/29/24 14:38 Temperature 97.5 F 97.3 F Pulse Rate 131 H 130 H 127 H Respiratory Rate 18 Blood Pressure 149/75 H 108/42 L 128/60 Pulse Oximetry 92 90 L Oxygen Delivery Method Mechanical Ventilation Mechanical Ventilation Fraction of Inspired Oxygen BMI result Body Mass Index 33.2 Const Other: the patient was unconscious, unresponsive to all stimuli, and The flaccid. HENMT Other: No obvious facial asymmetry. There was regurgitated gastric contents in the posterior pharynx.. Eyes Other: Pupils were round, conjunctiva clear Neck Other: no nuchal rigidity Neck: Yes full ROM Resp Other: no spontaneous breath sounds Cardio Other: patient was pulseless without heart tones GI Other: the abdomen seems soft and not apparently tender. No rigidity. Skin Other: Skin was pale and dry Neuro Other: initially the patient was showing no signs of life. The patient was unresponsive to all stimuli and was flaccid. After intubation and resuscitation when the patient's pulse had returned the patient seemed to be moving his extremities symmetrically Extrem Other: mild peripheral edema both lower legs. No obvious asymmetry. Medications Administered Discontinued Medications Generic Name Dose Route Start Last Admin Trade Name Freq PRN Reason Stop Dose Admin Chlorhexidine Gluconate 15 ml 12/29/24 15:00 12/29/24 15:48 Chlorhexidine Gluc Oral Rinse 15 Ml Mouthwash BUCCAL 15 ml TID ANDREW Administration Etomidate 10 mg 12/29/24 15:27 12/29/24 11:20 Etomidate 20 Mg/10 Ml Vial IVPUSH 12/29/24 15:28 10 mg ONCE ONE Administration Midazolam HCl 50 mg in 50 mls @ 2 mls/hr 12/29/24 11:15 12/29/24 11:20 Versed IVCONT Infused .Q24H ANDREW Infusion Protocol 2 MG/HR Fentanyl 1,000 mcg in 100 mls @ 0 mls/hr 12/29/24 11:15 12/29/24 17:02 Sublimaze/Ns IVCONT Infused .Q0M ANDREW Titration Protocol Per Protocol Propofol 1,000 mg in 100 mls @ 0 mls/hr 12/29/24 11:15 12/29/24 17:34 Diprivan IVCONT Infused .Q0M ANDREW Titration Protocol Per Protocol Calcium Gluconate 1 gm in 50 mls @ 50 mls/hr 12/29/24 12:29 12/29/24 12:57 Calcium Gluconate IV 12/29/24 13:28 Infused ONCE ONE Infusion Sodium Bicarbonate 150 meq/ 1,000 mls @ 100 mls/hr 12/29/24 12:30 12/29/24 13:10 Dextrose IV 50 mls/hr .Q10H ANDREW Administration Piperacillin Sod/Tazobactam 100 mls @ 200 mls/hr 12/29/24 13:00 12/29/24 14:16 Sod 4.5 gm/ Sodium Chloride IV 12/29/24 13:29 Infused ONCE ONE Infusion Lactated Ringer's 1,000 mls @ 999 mls/hr 12/29/24 13:15 12/29/24 15:47 Lr IV 12/29/24 14:15 Infused .Q1H1M ANDREW Infusion Vancomycin HCl 2,000 mg in 500 mls @ 250 mls/hr 12/29/24 14:50 12/29/24 17:17 Vancomycin/Ns IV 12/29/24 16:49 Not Given ONCE ONE Dopamine HCl/Dextrose 400 mg in 250 mls @ 0 mls/hr 12/29/24 15:15 12/29/24 15:47 Dopamine Hcl/D5w IVCONT Infused .Q0M ANDREW Titration Protocol Per Protocol Norepinephrine Bitartrate 8 mg in 250 mls @ 0 mls/hr 12/29/24 15:45 12/29/24 17:02 Levophed IVCONT Infused .Q0M ANDREW Titration Protocol Per Protocol Insulin Human Lispro 0 unit 12/29/24 16:30 12/29/24 15:48 Insulin Lispro 100 Unit/Ml 3 Ml Vial SUBCUT 4 unit QIDACHS ANDREW Administration Protocol Tenecteplase 45 mg 12/29/24 16:25 12/29/24 16:42 Tenecteplase 50 Mg/10 Ml Kit IVPUSH 12/29/24 16:26 45 mg ONCE ONE Administration Procedures Central Line Placement Right Femoral: Time Out Performed: Yes Patient Placed on Monitor/Pulse Ox: Yes Prep: mask, gown and gloves Central Line Prep: Chlorhexidine scrub Central Line Lumen Inserted: triple Post Procedure: sutured in place, good blood return, all ports aspirated, flushed, capped and sterile dressing applied Patient Tolerated Procedure: well Complications: none Medical Decision Making Medical Decision Making [facility] Narrative: The patient arrived through triage having been driven here by a private vehicle. The patient was extracted from the family's car by emergency room staff and placed on a stretcher. The patient did not seem to have any pulses and CPR was initiated in the waiting room and the patient was wheeled to room 22 with CPR being performed on the stretcher. Uaq-koyds-tobe ventilation was initiated and I intubated the patient using a glide scope and a 7.5 ET tube. There was gastric contents in the posterior oropharynx which I had suction before intubation. CPR was continued and epinephrine was administered and that was the return of spontaneous pulses before any initial rhythm had been appreciated. The patient was given an IV dose of etomidate soon after intubation when the patient became quite restless. The patient was also started on IV fentanyl and midazolam. He was removed from room 22 to room 5. not long after being placed in the new room the patient developed bradycardia and again became pulseless. He was given additional IV epinephrine and I placed a right femoral triple-lumen catheter. Chest x-ray suggested a possible right upper lobe infiltrate. there was some delay in drawing of initial labs. I had been told that labs had been drawn and sent to the lab but this turned out not to be the case. Labs are ultimately drawn and the 1st lab to be reported was that the patient was severely anemic with a hemoglobin of less than 6. At that 0.2 units of PRBCs were ordered to be released on an emergency basis however, before blood was actually started, the lab called explaining that multiple other lab results seemed to bizarre and all of the initial lab results were thought to possibly be suspect. Therefore new labs were drawn off the triple-lumen catheter. The plan for a blood transfusion, to which the patient's had consented, was abandoned and the patient did not actually receive any blood transfusion. Ultimately labs that were felt to be reliable were obtained which showed an unremarkable hemoglobin, renal insufficiency not much worse than previous renal insufficiency, no significant electrolyte abnormalities, but there was an apparent significant acidosis on his venous pH of 7.03. Since the patient's episode of cardiac arrest that occurred after resuscitation and intubation seemed to be a bradycardic arrest the patient was placed on dopamine. This caused a certain amount of tachycardia that seemed to maintain a decent blood pressure. Noncontrast CT of the head, chest, abdomen and pelvis showed airspace disease in the chest but no other Significant findings. The patient was admitted to the intensive care unit. the patient's family had been kept informed of the patient's progress throughout the ER stay. Lab Data 12/29/24 12:46 12/29/24 15:57 Labs: Lab Results 12/29/24 12/29/24 12/29/24 Range/Units 10:57 11:53 12:20 WBC TNP RBC TNP Hgb TNP Hct TNP MCV TNP MCH TNP MCHC TNP RDW TNP Plt Count TNP MPV TNP Immature Gran % (Auto) TNP Neut % (Auto) TNP Lymph % (Auto) TNP [place] % (Auto) TNP Eos % (Auto) TNP Baso % (Auto) TNP Lymph # (Auto) TNP [place] # (Auto) TNP Eos # (Auto) TNP Baso # (Auto) TNP Abs Immat Gran (auto) TNP Absolute Neuts (auto) TNP Absolute Nucleated RBC TNP Nucleated RBC % (auto) TNP Smear Tech's Comments PT TNP INR TNP APTT TNP VBG pH VBG pCO2 VBG pO2 VBG HCO3 VBG O2 Saturation VBG Base Excess Sodium Cancelled Potassium Cancelled Chloride Cancelled Carbon Dioxide Cancelled Anion Gap Cancelled BUN Cancelled Creatinine Cancelled Estim Creat Clear Calc Cancelled Estimated GFR Cancelled POC Glucose 104 (60-115) mg/dL Random Glucose Cancelled Lactic Acid (0.5-2.0) mmol/L Calcium Cancelled Magnesium Cancelled Total Bilirubin Cancelled Direct Bilirubin Cancelled AST Cancelled ALT Cancelled Alkaline Phosphatase Cancelled Total Creatine Kinase Cancelled Troponin I High Sens Cancelled B-Natriuretic Peptide Cancelled Total Protein Cancelled Albumin Cancelled Urine Color Urine Appearance Urine pH (5.0-9.0) Ur Specific [place] (1.005-1.025) Urine Protein (Neg-Trace) mg/dL Urine Glucose (UA) (Negative) mg/dL Urine Ketones (Negative) mg/dL Urine Blood (Negative) Urine Nitrite (Negative) Ur Leukocyte Esterase (Negative) Urine RBC (0-2) /HPF Urine WBC (0-5) /HPF Ur Squamous Epith Cells (0-2) /HPF Ur Transition Epith Cell Ur Renal Epithelial Cell Urine Bacteria (None Seen) Hyaline Casts (0-2) /LPF Influenza Type A (PCR) NEGATIVE (Negative) Influenza Type B (PCR) NEGATIVE (Negative) RSV RNA Qual (PCR) NEGATIVE (Negative) SARS-CoV-2 RNA (RT-PCR) NEGATIVE (Negative) Blood Type Antibody Screen Crossmatch 12/29/24 12/29/24 12/29/24 Range/Units 12:23 12:26 12:46 WBC 31.5 H* RBC 4.41 L Hgb 12.8 L Hct 40.4 L MCV 91.6 MCH 29.0 MCHC 31.7 RDW 14.8 Plt Count 292 MPV 10.6 Immature Gran % (Auto) 3.8 H Neut % (Auto) 75.7 H Lymph % (Auto) 14.3 L Mchenry % (Auto) 2.9 Eos % (Auto) 2.8 Baso % (Auto) 0.5 Lymph # (Auto) 4.5 [place] # (Auto) 0.9 Eos # (Auto) 0.9 H Baso # (Auto) 0.2 Abs Immat Gran (auto) 1.20 H Absolute Neuts (auto) 23.8 H Absolute Nucleated RBC 0.000 Nucleated RBC % (auto) 0.0 Smear Tech's Comments VERIFIED PT INR APTT VBG pH TNP VBG pCO2 TNP VBG pO2 TNP VBG HCO3 TNP VBG O2 Saturation TNP VBG Base Excess TNP Sodium 136 Potassium 5.2 H Chloride 105 Carbon Dioxide 17 L Anion Gap 19 BUN 56 H Creatinine 2.08 H Estim Creat Clear Calc 27.3 Estimated GFR 31 POC Glucose (60-115) mg/dL Random Glucose 196 H Lactic Acid (0.5-2.0) mmol/L Calcium 7.9 L Magnesium 2.1 Total Bilirubin 0.5 Direct Bilirubin 0.2 AST 533 H ALT 533 H Alkaline Phosphatase 122 H Total Creatine Kinase Troponin I High Sens 42.0 H B-Natriuretic Peptide 223 H Total Protein 6.8 Albumin 3.1 L Urine Color Urine Appearance Urine pH (5.0-9.0) Ur Specific [place] (1.005-1.025) Urine Protein (Neg-Trace) mg/dL Urine Glucose (UA) (Negative) mg/dL Urine Ketones (Negative) mg/dL Urine Blood (Negative) Urine Nitrite (Negative) Ur Leukocyte Esterase (Negative) Urine RBC (0-2) /HPF Urine WBC (0-5) /HPF Ur Squamous Epith Cells (0-2) /HPF Ur Transition Epith Cell Ur Renal Epithelial Cell Urine Bacteria (None Seen) Hyaline Casts (0-2) /LPF Influenza Type A (PCR) (Negative) Influenza Type B (PCR) (Negative) RSV RNA Qual (PCR) (Negative) SARS-CoV-2 RNA (RT-PCR) (Negative) Blood Type A Positive Antibody Screen NEGATIVE Crossmatch See Detail 12/29/24 12/29/24 12/29/24 Range/Units 12:48 13:10 13:12 WBC RBC Hgb Hct MCV MCH MCHC RDW Plt Count MPV Immature Gran % (Auto) Neut % (Auto) Lymph % (Auto) [place] % (Auto) Eos % (Auto) Baso % (Auto) Lymph # (Auto) [place] # (Auto) Eos # (Auto) Baso # (Auto) Abs Immat Gran (auto) Absolute Neuts (auto) Absolute Nucleated RBC Nucleated RBC % (auto) Smear Tech's Comments PT 14.9 H INR 1.3 H APTT 41.3 H VBG pH 7.03 L* VBG pCO2 63 VBG pO2 52 VBG HCO3 17 L VBG O2 Saturation 64.0 VBG Base Excess -14.3 Sodium Potassium Chloride Carbon Dioxide Anion Gap BUN Creatinine Estim Creat Clear Calc Estimated GFR POC Glucose (60-115) mg/dL Random Glucose Lactic Acid 4.0 H* (0.5-2.0) mmol/L Calcium Magnesium Total Bilirubin Direct Bilirubin AST ALT Alkaline Phosphatase Total Creatine Kinase Troponin I High Sens B-Natriuretic Peptide Total Protein Albumin Urine Color Urine Appearance Urine pH (5.0-9.0) Ur Specific [place] (1.005-1.025) Urine Protein (Neg-Trace) mg/dL Urine Glucose (UA) (Negative) mg/dL Urine Ketones (Negative) mg/dL Urine Blood (Negative) Urine Nitrite (Negative) Ur Leukocyte Esterase (Negative) Urine RBC (0-2) /HPF Urine WBC (0-5) /HPF Ur Squamous Epith Cells (0-2) /HPF Ur Transition Epith Cell Ur Renal Epithelial Cell Urine Bacteria (None Seen) Hyaline Casts (0-2) /LPF Influenza Type A (PCR) (Negative) Influenza Type B (PCR) (Negative) RSV RNA Qual (PCR) (Negative) SARS-CoV-2 RNA (RT-PCR) (Negative) Blood Type Antibody Screen Crossmatch 12/29/24 Range/Units 13:23 WBC RBC Hgb Hct MCV MCH MCHC RDW Plt Count MPV Immature Gran % (Auto) Neut % (Auto) Lymph % (Auto) [place] % (Auto) Eos % (Auto) Baso % (Auto) Lymph # (Auto) [place] # (Auto) Eos # (Auto) Baso # (Auto) Abs Immat Gran (auto) Absolute Neuts (auto) Absolute Nucleated RBC Nucleated RBC % (auto) Smear Tech's Comments PT INR APTT VBG pH VBG pCO2 VBG pO2 VBG HCO3 VBG O2 Saturation VBG Base Excess Sodium Potassium Chloride Carbon Dioxide Anion Gap BUN Creatinine Estim Creat Clear Calc Estimated GFR POC Glucose (60-115) mg/dL Random Glucose Lactic Acid (0.5-2.0) mmol/L Calcium Magnesium Total Bilirubin Direct Bilirubin AST ALT Alkaline Phosphatase Total Creatine Kinase Troponin I High Sens B-Natriuretic Peptide Total Protein Albumin Urine Color Yellow Urine Appearance Cloudy Urine pH 5.5 (5.0-9.0) Ur Specific [place] 1.010 (1.005-1.025) Urine Protein 100 (2+) H (Neg-Trace) mg/dL Urine Glucose (UA) 500 H (Negative) mg/dL Urine Ketones Negative (Negative) mg/dL Urine Blood Large (3+) H (Negative) Urine Nitrite Negative (Negative) Ur Leukocyte Esterase Trace H (Negative) Urine RBC 6-10 H (0-2) /HPF Urine WBC 21-50 H (0-5) /HPF Ur Squamous Epith Cells 6-10 (0-2) /HPF Ur Transition Epith Cell Present Ur Renal Epithelial Cell Present Urine Bacteria 1+ (None Seen) Hyaline Casts 11-20 (0-2) /LPF Influenza Type A (PCR) (Negative) Influenza Type B (PCR) (Negative) RSV RNA Qual (PCR) (Negative) SARS-CoV-2 RNA (RT-PCR) (Negative) Blood Type Antibody Screen Crossmatch Critical Care Time Critical Care Time Critical Care Time: Yes Total Critical Care Time: 35 Attestation: The patient was critically ill with a high probability of imminent or life-threatening deterioration. I spent greater than 30 minutes of discontinuous time evaluating the patient, delivering critical care at the bedside, discussing evaluating data with consultants. Critical care time does not include time spent performing separately billable procedures or teaching. Time spent performing critical care with 35 minutes. Discharge Plan Discharge Clinical Impression: Bradycardic cardiac arrest Patient Disposition: Admitted As Inpatient Interventions: Admission Worksheet (ED) Last Done: 12/29/24 15:45 Discharge Date/Time: 12/29/24 15:43
[2024-12-29] MEDS: fentaNYL citrate/NS 1,000 MCG/100 ML PLAST..BAG 2.5 MCG IVCONT (11:13)
[2024-12-29] MEDS: Midazolam HCl/NS 50 MG/50 ML PLAST..BAG IVCONT (11:14)
[2024-12-29] MEDS: Etomidate 20 MG/10 ML VIAL 10 MG IVPUSH (11:20)
[2024-12-29] MEDS: propofoL 1,000 MG/100 ML VIAL 15.32 MG IVCONT (11:20)
--- NOTE | 2024-12-29 11:27 | PC.NURSE ---
Addendum entered by Tresa Ramos 12/29/24 11:30: when fentanyl was increased, versed was DCed, and propfol started at protocol start rate 30mcg/kg/min Original Note: pt was pulling at vent. xray was needed. pt agitated. per verbal order from Dr. Goff, increase fentanyl from 25mcg/hr to 100mcg/hr.
[2024-12-29] MEDS: DOPamine HCL/D5W 400 MG/250 ML PLAST..BAG 15.96 MG IVCONT (11:58)
--- OUTSIDE RECORDS SUMMARY | 2024-12-29 12:07 | XMS_ITS | Encounter Summary ---
Author Organization [facility] Address [address] [place] [address] Phone Care Team Providers Care Sales Force Developer Name Role Phone Elisa Lyman MD Primary Care Provider [phone] Encounter Details Date Type Department Care Team (Late st Contact Info) Description 07/25/2022 Documentation Only [facility] [address] [place] [address] Wayne Zepeda MD [address] [place] [address] [place] [address] Social History Tobacco Use Types Packs/Day Years Used Date Smoking Tobacco: Former Comments:Smoking History Inf o:Every day Alcohol Use Standard Drinks/Week Comments No 0 (1 standard drink = 0.6 oz pure alcohol) Alcoholic Drinks/day: Occasional social drink Sex and Gender Information Value Date Recorded Sex Assigned at Not on file Legal Sex Male 4:34 PM EST Gender Identity Not on file Sexual Orientation Not on file documented as of this encounter Plan of Treatment Upcoming Encounters Date Type Department Care Team (Late st Contact Info) Description 03/09/2025 2:15 PM EDT Office Visit [facility] [address] [place] [address] Wayne Zepeda MD [address] [place] [address] [place] [address] documented as of this encounter Visit Diagnoses Not on filedocumented in this encounter Care Teams Sales Force Developer Relationship Specialty Start Date End Date Elisa Lyman MD PCP - General Internal Medicine 10/31/21 documented as of this encounter
--- OUTSIDE RECORDS SUMMARY | 2024-12-29 12:07 | XMS_ITS | Encounter Summary ---
Author Organization [facility] Address [address] [place] [address] Care Team Providers Care Newspaper Editor Managing Name Role Phone Elisa Lyman MD Primary Care Provider [phone] Encounter Details Date Type Department Care Team ([facility] Contact Info) Description 12/04/2024 Telephone Adult Medicine [address] [phone] Leydi Mcmahan [place] Social History Tobacco Use Types Packs/Day Years Used Date Smoking Tobacco: Former Cigarettes 1 53 0 1960 - 2013 Smokeless Tobacco: Never Alcohol Use Standard Drinks/Week Comments Not Currently 0 (1 standard drink = 0.6 oz pur e alcohol) Sex and Gender Information Value Date Recorded Sex Assigned at Not on file Gender Identity Not on file Sexual Orientation Not on file Job Start Date Occupation Industry Not on file Not on file Not on file documented as of this encounter Plan of Treatment Upcoming Encounters Date Type Department Care Team ([facility] Contact Info) Description 01/11/2025 2:00 PM EST Office Visit Adult Medicine [address] [phone] Ashish Garcia PA [address] [place], [place] 02/17/2025 3:45 PM EDT Office Visit Endocrinology [address] [phone] Lesly Gonzalez PA [address] [place] [address] documented as of this encounter Visit Diagnoses Not on filedocumented in this encounter Care Teams Newspaper Editor Managing Relationship Specialty Start Date End Date Elisa Lyman MD [address] [place] [address] PCP - General Internal Medicine 04/16/17 documented as of this encounter
--- OUTSIDE RECORDS SUMMARY | 2024-12-29 12:07 | XMS_ITS | Encounter Summary ---
Author Organization [facility] Address [address] [place] [address] Phone Care Team Providers Care Care Worker Name Role Phone Elisa Lyman MD Primary Care Provider [phone] Encounter Details Date Type Department Care Team (Late st Contact Info) Description 08/12/2023 Documentation Only [facility] [address] [place] [address] Wayne Zepeda MD [address] [place] [address] [place] [address] Social History Tobacco Use Types [...] Visit [facility] [address] [place] [address] Wayne Zepeda MD [address] [place] [address] [place] [address] documented as of this encounter Visit Diagnoses Not on filedocumented in this encounter Care Teams Care Worker Relationship Specialty Start Date End Date Elisa Lyman MD PCP - General Internal Medicine 10/31/21 documented as of this encounter
--- OUTSIDE RECORDS SUMMARY | 2024-12-29 12:07 | XMS_ITS | Encounter Summary ---
Author Organization [facility] Address [address] [place] [address] Phone Care Team Providers Care Awning Craftsperson Name Role Phone Elisa Lyman MD Primary Care Provider [phone] Encounter Details Date Type Department Care Team (Late Contact Info) Description 02/24/2024 Documentation Only [facility] [address] [place] [address] [address]etta Gallagher [address] [place] [address] Social History Tobacco Use Types Packs/Day Years [...] Encounters Date Type Department Care Team (Late Contact Info) Description 03/09/2025 2:15 PM EDT Office Visit [facility] [address] [place] [address] Wayne Zepeda MD [address] [place] [address] [place] [address] documented as of this encounter Visit Diagnoses Not on filedocumented in this encounter Care Teams Awning Craftsperson Relationship Specialty Start Date End Date Elisa Lyman MD PCP - General Internal Medicine 10/31/21 documented as of this encounter
--- OUTSIDE RECORDS SUMMARY | 2024-12-29 12:07 | XMS_ITS | Clinical Summary ---
Author Organization [facility] [address] [place] [address] [place] [phone] Phone Care Team Providers Care Machine Load Clerk Name Role Phone Elisa Lyman MD Primary Care Provider [phone] Allergies No known active allergies Medications Medication Sig Dispensed Refills Start Date End Date Status atorvastatin (LIPITOR) 80 mg tablet Take 1 tablet (80 mg total) by mouth 1 (one) time each day. 09/17/2024 Active insulin aspart (NovoLOG Flexpen U-100 Insulin) 100 unit/mL (3 mL) injection pen Inject three times a day with meals depending on scale 100-150: 8 units; 151-200: 10 units; 201-250: 11 units ; 251-300: 12 units; 301-350: 13 units; 351-400: 14 units 09/17/2024 Active insulin glargine (Lantus Solostar U-100 Insulin) 100 unit/mL (3 mL) injection pen Inject 14 Units into the skin at bedtime. 09/17/2024 Active aspirin 81 mg chewable tablet Chew 1 tablet (81 mg total) 1 (one) time each day. 09/09/2024 Active ipratropium-albuteroL (DUONEB) 0.5-2.5 mg/3 mL nebulizer solution Inhale 3 mL into the lungs 4 times daily. 09/09/2024 Active isosorbide mononitrate (IMDUR) 30 mg 24 hr tablet Take 1 Tablet by mouth 2 times daily. Field Service Poultry TechnicianJOELLEN MOHAMMED prescribed this medicine Active torsemide (DEMADEX) 10 mg tablet Take 1 Tablet by mouth 2 times daily. Field Service Poultry TechnicianJOELLEN MOHAMMED prescribed this medicine Active nitroglycerin (NITROSTAT) 0.[address] 1 Tablet under the tongue every 5 minutes as needed for Chest pain. Field Service Poultry Technician, KELSEY CUENCA prescribed this medicine Active carvediloL (COREG) 3.125 mg tablet Take 1 Tablet by mouth 2 times daily (with meals). Field Service Poultry Technician, KELSEY CUENCA prescribed this medicine Active empagliflozin (Jardiance) 25 mg tablet Take 25 mg by mouth daily. 07/15/2024 Active ferrous sulfate 325 mg (65 mg elemental iron) tablet TAKE 1 TABLET BY MOUTH DAILY 07/06/2024 Active glucagon (Gvoke HypoPen 1-Pack) 0.5 mg/0.1 mL auto-injector Inject 1 Dose into the skin as needed for Other (severe hypoglycemia). 03/18/2024 Active blood sugar diagnostic (FreeStyle Lite Strips) test strip DIRECTED TO TEST BLOOD SUGAR THREE TIMES DAILY 08/17/2022 Active pen needle, diabetic 29 gauge x 1/2 needle Use to administer Insulin 4 times daily 03/21/2022 Active flash glucose sensor (FREESTYLE NELI 2 SENSOR MISC) 1 Device by Does not apply route every 14 days. 12/18/2021 Active vit C/E/Zn/coppr/lutein/z eaxan (PRESERVISION AREDS-2 ORAL) Take by mouth. Active flash glucose scanning reader (FreeStyle Neli 2 [place]inton) misc 1 Device by Does not apply route daily. Use to scan blood sugars at least every 8 hours 10/11/2020 Active spironolactone (ALDACTONE) 25 mg tablet Take 1 tablet (25 mg total) by mouth 1 (one) time each day. Half a tab daily Active sodium bicarbonate 650 mg tablet Take 1 tablet (650 mg total) by mouth 1 (one) time each day. Active mv-min/FA/vit K/lutein/zeaxant (PRESERVISION AREDS 2 PLUS MV ORAL) Take by mouth. Active Active Problems Problem Noted Date Diagnosed Date Congestive heart failure 10/04/2020 Diastolic dysfunction 10/04/2020 Supplemental oxygen dependent 10/04/2020 Centrilobular emphysema 06/30/2019 Abnormality of lung on CXR 08/06/2018 Hypoxia 08/06/2018 Snoring 08/06/2018 Stage 1 mild COPD by GOLD classification 018 Background retinopathy 02/19/2018 Microalbuminuria 10/15/2017 Nuclear age-related cataract, both eyes 10/15/20 17 Type 2 diabetes mellitus with vascular disease 1 12/15/2016 Vitamin D deficiency 10/15/2017 Anemia 07/19/2017 Type 2 diabetes mellitus with renal manifestatio ns 07/19/2017 Bilateral carotid artery stenosis 05/06/2017 CAD (coronary artery disease) 05/06/2017 Overview (09/30/2024): Old TX x 2 Stented - x 3: 2014 PCI to LAD and CIRCSTEMI, 08/2016 RCA BRIDGET CKD (chronic kidney disease) stage 3, GFR 30-59 ml/min 05/06/2017 Essential hypertension 05/06/2017 Hyperlipidemia 05/06/2017 Encounters Date Type Department Care Team Description 12/22/2024 Telephone Adult Medicine [address] [phone] Elisa Lyman MD FYI 12/09/2024 3:00 PM EST Office Visit Adult Medicine [address] [phone] Elisa Lyman MD Acute on chronic respiratory failure with hypoxia (CMS/HCC) (Primary Dx); Stage 3 chronic kidney disease, unspecified whether stage 3a or 3b CKD (CMS/HCC); Anemia, unspecified type; Stage 1 mild COPD by GOLD classification (CMS/HCC); Congestive heart failure, unspecified HF chronicity, unspecified heart failure type (CMS/HCC); Coronary artery disease involving [place] coronary artery of [place] heart without angina pectoris; Type 2 diabetes mellitus with stage 3 chronic kidney disease, with long-term current use of insulin, unspecified whether stage 3a or 3b CKD (CMS/HCC) 12/07/2024 Telephone Adult Medicine [address] [phone] Elisa Lyman MD Forms/questionnaires ([facility]) 12/04/2024 Telephone Adult Medicine [address] [phone] Leydi Mcmahan [place] 12/02/2024 Telephone Adult Medicine [address] [phone] Elisa Lyman MD [facility] Follow-up 11/12/2024 Telephone Adult [address] [phone] Elisa Lyman MD from Last 3 Months Immunizations Name Administration Dates Next Due Influenza trivalent, 0.5mL ( Fluad) 65yo and older 09/09/2024,08/15/2022,10/30/2021,10/04,08/19/2019,09/18/2018,08/22/2017 Pneumococcal conjugate 13 va lent (Prevnar 13, PCV13) 2mo and older 05/30/2023 Pneumococcal polysaccharide 23 valent (Pneumovax 23) 2yo and older 10/31/2012,12/26/2006 Td Tetanus diptheria (Tdvax) 7yo and older 11/25/1997 Tdap Tetanus diptheria acell ular pertussis (Boostrix; Adacel) 7yo and older 06/25/2018 Surgical History Surgery Date Site/Laterality Comments OTHER SURGICAL HISTORY PROCEDURE: HISTORY OTHER; COMMENT: Cardiac stents 2014, 2015 ESOPHAGOGASTRODUODENOSCOPY 02/18/18 [facility] PROCEDURE: [place] EGD TRANSORAL BIOPSY SINGLE/MULTIPLE; COMMENT: HH and mild antral gastritis: Intestinal metaplasia; no H. pylori; chronic gastritis; normal duodenal biopsies; COLONOSCOPY 02/18/18 [facility] PROCEDURE: [place] COLONOSCOPY STOMA W/RMVL HARSHA POLYP/OTH LES SNARE; COMMENT: AVM in transverse colon; hemorrhoids; two diminutive adenomas; would not repeat. Medical History Medical History Date Comments Anemia 07/19/2017 DX:Anemia Bilateral carotid artery stenosis 05/06/2017 DX:Bilateral carotid artery stenosis Chronic obstructive pulmonar y disease (COPD) (CMS/HCC) 10/15/2017 DX:Chronic obstructive pulmo nary disease (COPD) ([facility]) Essential hypertension 05/06/2017 DX:Essent ial hypertension Hyperlipidemia 05/06/2017 DX:Hyperlipidemi a Microalbuminuria 10/15/2017 DX:Microalbumin uria Type 2 diabetes mellitus wit h vascular disease (CMS/HCC) 10/15/2017 DX:Type 2 diabetes mellitus with vascular disease (HCC) Vitamin D deficiency 10/15/2017 DX:Vitamin D deficiency Pinguecula, bilateral 10/15/2017 DX:Pinguec piyush, bilateral Pterygium, peripheral, progr essive, left 10/15/2017 DX:Pterygium, peripheral, progressive, left Nuclear age-related cataract , both eyes 10/15/2017 DX:Nuclear age-related catar act, both eyes Retinal drusen of both eyes 10/15/2017 DX:R etinal drusen of both eyes CAD (coronary artery disease) 05/06/2017 DX :CAD (coronary artery disease); COMMENT: Old TX x 2 Stented - x 3: 2014 PCI to LAD and CIRCSTEMI, 08/2016 RCA BRIDGET CKD (chronic kidney disease) stage 3, GFR 30-59 ml/min (CMS/HCC) 05/06/2017 DX:CKD (chronic kidney dise ase) stage 3, GFR 30-59 ml/min (HCC) Type 2 diabetes mellitus wit h renal manifestations (CMS/HCC) 07/19/2017 DX:Type 2 diabetes mellitus with renal manifestations (HCC) Family History Medical History Relation Name Comments Lung cancer Brother 1 Stroke Brother 2 Lung Cancer No Known Problems Father age 1 17 Liver cancer Mother Uterine cancer Sister Relation Name Status Comments Brother 1 Brother 2 Father Mother Sister Social History Tobacco Use Types Packs/Day Years Used Date Smoking Tobacco: Former Cigarettes 1 53 0 1960 - 2013 Smokeless Tobacco: Never Tobacco Cessation:Counseling Given: Not Answered Alcohol Use Standard Drinks/Week Comments Not Currently 0 (1 standard drink = 0.6 oz pur e alcohol) Sex and Gender Information Value Date Recorded Sex Assigned at Not on file Gender Identity Not on file Sexual Orientation Not on file Job Start Date Occupation Industry Not on file Not on file Not on file Obstetrics History Last Filed Vital Signs Vital Sign Reading Time Taken Comments Blood Pressure 143/61 12/09/2024 3:16 PM EST Pulse 78 12/09/2024 3:16 PM EST Temperature 36 ??C (96.8 ??F) 12/09/2024 3:16 PM EST Respiratory Rate 28 12/09/2024 3:16 PM EST Oxygen Saturation 97% 12/09/2024 3:16 PM EST Inhaled Oxygen Concentration - - Weight 79.4 kg (175 lb) 12/09/2024 3:16 PM EST Height 157.5 cm (5' 2 ) 12/09/2024 3:16 PM EST Body Mass Index 32.01 12/09/2024 3:16 PM EST Plan of Treatment Upcoming Encounters Date Type Department Care Team (Late st Contact Info) Description 01/11/2025 2:00 PM EST Office Visit Adult Medicine [facility] [address] [place] [address] Ashish Garcia PA [address] [place], [place] 02/17/2025 3:45 PM EDT Office Visit Endocrinology [address] [phone] Lesly Gonzalez PA [address] [place] [address] Health Maintenance Due Date Last Done Comments Zoster Vaccines (1 of 2) 1994 RSV Immunization Patients 60+ Years Old (1 - 1-dose 75+ series) 2019 Social Influencers of Health Screening 11/03/2022 Lung Cancer Screening (Low Dose CT) 05/29/2023 05/29/2022, 05/24/2021 COVID-19 Vaccine ( season) 2024 02/01/2022, 05/04/2021, 04/06/2021 Diabetes: Annual Retina Eye Exam 12/05/2024 12/05/2023 Depression Screening 02/19/2025 02/20/2024 Falls Risk Assessment 02/19/2025 02/20/2024 Medicare Annual Wellness Visit 02/19/2025 02/20/2024 Diabetes: Blood Sugar Control Test (HGBA1C) 03/10/2025 09/09/2024, 09/09/2024, 01/25/2022 Diabetes: Annual Foot Exam 08/04/2025 08/04/2024 Diabetes: Annual Urine Albumin-Creatinine Ratio (uACR) 09/09/2025 09/09/2024 Diabetes: Annual GFR (Glomerular Filtration Rate) 09/09/2025 09/09/2024, 09/09/2024 Hypertension/CHF/CAD Annual BMP Blood Test 09/09/2025 09/09/2024, 09/09/2024 DTaP,Tdap,and Td Vaccines (3 - Td or Tdap) 06/25/2028 06/25/2018, 11/25/1997 Cholesterol Screening (Lipid Panel) 09/09/2029 09/09/2024, 09/09/2024 Pneumococcal Vaccine: 65+ Years Completed 05/30/2023, 05/30/2023, 12/17/2016, Additional history exists Influenza Vaccine Completed 09/09/2024, , 08/15/2022, Additional history exists HIB Vaccines Aged Out No longer eligi ble based on patient's age to complete this topic HPV Vaccines Aged Out No longer eligi ble based on patient's age to complete this topic Hepatitis A Vaccines Aged Out No long er eligible based on patient's age to complete this topic Hepatitis B Vaccines Aged Out No long er eligible based on patient's age to complete this topic IPV Vaccines Aged Out No longer eligi ble based on patient's age to complete this topic MMR Vaccines Aged Out No longer eligi ble based on patient's age to complete this topic Meningococcal ACWY Vaccine Aged Out N o longer eligible based on patient's age to complete this topic RSV Immunization Patients Under 20 months Aged Out No longer eligible based on patient's age to complete this topic Varicella Vaccines Aged Out No longer eligible based on patient's age to complete this topic Procedures Procedure Name Priority Date/Time Associated Diagnosis Comments URINE ALBUMIN CREATININE RATIO Routine 09/09/2024 ANNUAL BMP BLOOD TEST Routine 09/09/2024 HEMOGLOBIN A1C Routine 09/09/2024 LIPID PANEL Routine 09/09/2024 DIABETES FOOT EXAM Routine 08/04/2024 DEPRESSION SCREENING Routine 02/20/2024 FALLS RISK ASSESSMENT Routine 02/20/2024 DIABETES EYE EXAM Routine 12/05/2023 CT LUNG SCREENING LOW DOSE Routine 05/29/2022 12:22 PM EDT Personal history of nicotine dependence from Last 3 Months or Most Recently Relevant to Health Maintenance Results * Urine Albumin Creatinine Ratio (09/09/2024) [facility] Urine Albumin Creatinine Ratio abstracted Historical Provider MD ONELIA DIOR [facility]ly [facility] Annual BMP Blood Test (09/09/2024) [facility] Annual BMP Blood Test abstracted Historical Provider MD ONELIA DIOR E (ABNORMAL) Hemoglobin A1c (09/09/2024) [facility] Hemoglobin A1C 8.4(A) 6.5 % Blood Venous blood specimen / Unknown Historical Provider LAB BLOOD ORDERAB LES * (ABNORMAL) Lipid panel (09/09/2024) [facility] LDL/HDL Ratio 3 0 - 4 Triglycerides 192(A) 0 - 150 mg/dL Cholesterol 160 0 - 200 mg/dL HDL 48 40 mg/dL LDL Cholesterol 74 0 - 100 mg/dL Blood Venous blood specimen / Unknown Historical Provider LAB BLOOD ORDERAB LES * Diabetes Foot Exam (08/04/2024) [facility] Diabetes: Annual Foot Exam abstracted Historical Provider MD OENLIA DIOR [facility] Falls Risk Assessment (02/20/2024) [facility] Falls Risk Assessment abstracted [facility] Provider MD ONELIA DIOR [facility] Depression Screening (02/20/2024) [facility] Depression Screening abstracted [facility] Provider MD ONELIA DIOR [facility] Diabetes Eye Exam (12/05/2023) [facility] Diabetes: Annual Retina Eye Exam abstracted Historical Provider MD HEALTH MAINTENANC E * CT LUNG SCREENING LOW DOSE (05/29/2022 12:22 PM EDT) Anatomical Region Laterality Modality Computed Tomogra phy 05/25/2022 2:14 PM EDT Narrative 05/29/2022 12:22 PM EDT [facility] Diagnostic Imaging Department [address] [place] [address] Patient: ??MISAEL GÓMEZ ?/Age/Sex: 1945 - 77 - M Unit#: ??[id number] ? Location/Status: ??SPDICATLS/REG CLI ? Mnemonic/Ordering Site: ??CTLUNGLD/SPCT Ordering Physician: ??BRADLEY ZAPATA MD CT Lung Screening Low Dose - 05/25/22 - HISTORY: Former smoker, 42 pack year total. COMMENTS: Noncontrast Chest CT examination includes axial imaging from the lung apices through the hemidiaphragms supplemented with coronal and sagittal reformatted images utilizing low-dose screening technique (Audaster, 139.63 DLP (mGy-cm), CT utilizing dose reduction technique with automated exposure control based on patient size or use of iterative reconstruction technique). Direct comparison to low-dose screening Chest CT examinations: 02/20/2019, 05/23/2020, 05/24/2021 Cardiac size within normal limits. ??Extensive three-vessel coronary artery atherosclerotic calcification. ??Extensive thoracic aorta calcification. Main pulmonary artery enlargement perhaps secondary to underlying pulmonary artery hypertension in the setting of emphysematous disease. Chronic intrathoracic partially calcified/calcified lymph nodes and right lower lobe calcified nodule. No pericardial effusion, pleural effusion, pneumothorax. Essentially similar 1.3 cm short axis right paratracheal lymph node. Chronic bilateral peribronchial thickening (bronchitis). Extensive emphysematous disease and nonspecific scattered bilateral primarily peripheral groundglass alveolar opacities without interval developing focal alveolar consolidation or dominant pulmonary mass. Essentially stable less than 5 mm subpleural nodules include right upper lobe (series 3 image 97). Overall perhaps mild increased noncalcified 4 x 6 mm left upper lobe subpleural solid nodule (series 3 image 73). T6 butterfly vertebral body, focal exaggerated kyphosis, mild thoracic levoscoliosis. Bilateral renal cortical cystic lesions; partially imaged. IMPRESSION: Emphysematous disease, less than 5 mm pulmonary nodules and perhaps mild increased left upper lobe pulmonary nodule by low-dose screening CT analysis when compared to [id number]. Please see the above report for further details. [id number] Telerad Lung RADS: Category 3 Dictating Physician: ??SARITA PIMENTEL DO Electronically Signed by: ??SARITA PIMENTEL DO Dic Date/Time: ??05/29/22 1213 Sign date/Time: ??05/29/22 1222 Procedure Note Sarita Pimentel, - 11/14/2022 [facility] Diagnostic Imaging Department [address] [place] [address] Patient: MISAEL GÓMEZ /Age/Sex: 1945 - 77 - M Unit#: [id number] Location/Status: SPDICATLS/REG CLI Mnemonic/Ordering Site: [facility] Ordering Physician: BRADLEY ZAPATA MD CT Lung Screening Low Dose - 05/25/22 - HISTORY: Former smoker, 42 pack year total. COMMENTS: Noncontrast Chest CT examination includes axial imaging from the lungapices through the hemidiaphragms supplemented with coronal and sagittalreformatted images utilizing low-dose screening technique (GE, 139.63 DLP (mGy-cm),CT utilizing dose reduction technique with automated exposure control basedon patient size or use of iterative reconstruction technique). Direct comparison to low-dose screening Chest CT examinations:02/20/2019, 05/23/2020, 05/24/2021 Cardiac size within normal limits. Extensive three-vessel coronaryartery atherosclerotic calcification. Extensive thoracic aorta calcification. Main pulmonary artery enlargement perhaps secondary to underlyingpulmonary artery hypertension in the setting of emphysematous disease. Chronic intrathoracic partially calcified/calcified lymph nodes and rightlower lobe calcified nodule. No pericardial effusion, pleural effusion, pneumothorax. Essentially similar 1.3 cm short axis right paratracheal lymph node. Chronic bilateral peribronchial thickening (bronchitis). Extensive emphysematous disease and nonspecific scattered bilateralprimarily peripheral groundglass alveolar opacities without interval developingfocal alveolar consolidation or dominant pulmonary mass. Essentially stable less than 5 mm subpleural nodules include right upperlobe (series 3 image 97). Overall perhaps mild increased noncalcified 4 x 6 mm left upper lobesubpleural solid nodule (series 3 image 73). T6 butterfly vertebral body, focal exaggerated kyphosis, mild thoracic levoscoliosis. Bilateral renal cortical cystic lesions; partially imaged. IMPRESSION: Emphysematous disease, less than 5 mm pulmonary nodules and perhaps mild increased left upper lobe pulmonary nodule by low-dose screening CTanalysis when compared to [id number]. Please see the above report for further details. [id number] [facility] Lung RADS: Category 3 Dictating Physician: SARITA PIMENTEL DO Electronically Signed by: SARITA PIMENTEL DO Dic Date/Time: 05/29/22 1213 Sign date/Time: 05/29/22 1222 Bradley Zapata MD IMG CT PROCEDURES from Last 3 Months or Most Recently Relevant to Health Maintenance Care Teams Machine Load Clerk Relationship Specialty Start Date End Date Elisa Lyman MD [address] [place] [address] PCP - General Internal Medicine 04/16/17
--- OUTSIDE RECORDS SUMMARY | 2024-12-29 12:07 | XMS_ITS | Encounter Summary ---
Author Organization [facility] Address [address] [place] [address] Care Team Providers Care Master Cook Name Role Phone Elisa Martinez MD Primary Care Provider [phone] Reason for Visit * Reason Onset Date Comments Hospital Follow-up 12/02/2024 Encounter Details Date Type Department Care Team ([facility] st Contact Info) Description 12/02/2024 Telephone Adult [place] [facility] [address] [place] [phone] Elisa Martinez MD [address] [place] [address] Hospital Follow-up Social History Tobacco Use Types Packs/Day Years [...] on file documented as of this encounter Progress Notes * Amadeo Woo RN - 12/09/2024 2:10 PM EST Called and spoke with pts daughter pt has been hospitalized twice and hasn't been seen advised pt should really keep appt. Will keep appt * Concetta Gould - 12/09/2024 1:53 PM EST Patient daughter is calling to reschedule appt says its too cold outside for father who is requiredto carry oxygen tank. Please advise * Frida Lo RN - 12/03/2024 11:32 AM EST Pt booked for 12/[address] martinez * Yudi Balderrama - 12/02/2024 2:35 PM EST Hospital/ER follow up appointment needed Hospital patient was treated at: [facility] Was this only an ER visit or was the patient admitted to the hospital? Admitted to the hospital/kept overnight Date of visit if ER visit only: If patient was admitted what was the date of discharge? 12/01/24 Reason/diagnosis for visit or stay: Heart Failure and pneumonia When was the patient told to follow up? AAKASH Was visit or stay related to an injury? If yes, what was the date of injury (DOI)? No If yes, was the injury due to: documented in this encounter Plan of Treatment Upcoming Encounters Date Type Department Care Team (Late st Contact Info) Description 01/11/2025 2:00 PM EST Office Visit Adult Medicine [address] [phone] Ashish Garcia PA [address] [place] [address] 02/17/2025 3:45 PM EDT Office Visit Endocrinology [address] [phone] Lesly Gonzalez PA [address] [place] [address] documented as of this encounter Visit Diagnoses Not on filedocumented in this encounter Care Teams Master Cook Relationship Specialty Start Date End Date Elisa Mratinez MD [address] [place] [address] PCP - General Internal Medicine 04/16/17 documented as of this encounter
--- OUTSIDE RECORDS SUMMARY | 2024-12-29 12:07 | XMS_ITS | Encounter Summary ---
Author Organization [facility] Address [address] [place] [address] Phone Care Team Providers Care Cattle Trader Name Role Phone Elisa Lyman MD Primary Care Provider [phone] Encounter Details Date Type Department Care Team (Late Contact Info) Description 02/24/2024 Documentation Only [facility] [address] [place] [address] Renetta Gallagher [address] [place] [phone] Social History Tobacco Use Types Packs/Day [...] Visit [facility] [address] [place] [address] Wayne Zepeda MD [address] [place] [address] [place] [address] documented as of this encounter Visit Diagnoses Not on filedocumented in this encounter Care Teams Cattle Trader Relationship Specialty Start Date End Date Elisa Lyman MD PCP - General Internal Medicine 10/31/21 documented as of this encounter
--- OUTSIDE RECORDS SUMMARY | 2024-12-29 12:08 | XMS_ITS | Clinical Summary ---
Author Organization [facility], Address [address] [place] [address] [place] [address] Phone Care Team Providers Care Software Implementation Project Manager Name Role Phone Elisa Lyman MD Primary Care Provider [phone] Allergies No known active allergies Medications atorvastatin (LIPITOR) 80 MG tablet Take 80 mg by mouth 1 (one) time each day Active insulin aspart (NovoLOG) 100 UNIT/ML injection Inject under the skin 3 (three) times a day before meals Active furosemide (LASIX) 40 MG tablet Take 40 mg by mouth 1 (one) time each day Active insulin glargine (LANTUS) 100 UNIT/ML injection Inject 10 Units under the skin every night Active aspirin 81 MG chewable tablet Chew 81 mg 1 (one) time each day Active Iron, Ferrous Sulfate, 325 (65 Fe) MG tablet Take by mouth Active MULTIPLE VITAMINS-MINERAL S PO Take by mouth Active clopidogrel (PLAVIX) 75 MG tablet Take 75 mg by mouth 1 (one) time each day Active ergocalciferol 1.25 MG (88974 UT) capsule TAKE 1 CAPSULE BY MOUTH ONCE A WEEK 12 capsule 2 09/06/2021 Active glucose blood (FREESTYLE LITE) test strip TEST BLOOD SUGAR 3 TIMES DAILY 10/18/2021 Active glipiZIDE (GLUCOTROL) 5 MG tablet Take 5 mg by mouth Active isosorbide mononitrate (IMDUR) 30 MG 24 hr tablet TAKE 1 TABLET(30 MG) BY MOUTH 1 TIME EACH DAY 90 tablet 3 07/18/2022 Active cholecalciferol (VITAMIN D-3) 25 MCG (1000 UT) capsule Take 1,000 Units by mouth 1 (one) time each day Active Glucagon 0.5 MG/0.1ML solution auto-injector Inject under the skin Active Jardiance 10 MG tablet 11/26/2022 Active nitroglycerin (NITROSTAT) 0.4 MG SL tablet TAKE ONE TABLET UNDER TONGUE NEEDED FOR CHEST PAIN 11/14/2022 Active torsemide (DEMADEX) 10 MG tablet TAKE 1 TABLET BY MOUTH EVERY DAY. START ON 11/14/22 11/11/2022 Active carvedilol (COREG) 6.25 MG tablet TAKE 2 TABLETS BY MOUTH EVERY MORNING AND 1 TABLET BY MOUTH EVERY EVENING 90 tablet 11 08/16/2023 Active Active Problems Problem Noted Date Diagnosed Date Diastolic heart failure 11/27/2022 Renal disorder due to type 2 diabetes mellitus 0 01/29/2022 Hyperkalemia 01/29/2022 Hypertensive heart and renal disease with (congestive) heart failure 04/01/2020 Type 2 diabetes mellitus 07/19/2017 Stage 3b chronic kidney disease 05/06/2017 Overview (11/28/2020): Update for Diagnosis Load Essential (primary) hypertension 05/06/2017 Resolved Problems Problem Noted Date Diagnosed Date Resolved Date Non-ST elevation (NSTEMI) my ocardial infarction 10/31/2021 01/26/2022 Renal disorder due to type 2 diabetes mellitus 04/17/2021 01/26/2022 Edema 04/01/2020 04/01/2020 Renal disorder due to type 2 diabetes mellitus 04/01/2020 04/16/2021 Centrilobular emphysema 06/30/2019 05/0 06/2020 Hypoxia 08/06/2018 04/01/2020 Imaging of lung abnormal 08/06/201806/2020 Bilateral pinguecula of eyes 10/15/2017 04/01/2020 Microalbuminuria 10/15/2017 04/01/2020 Peripheral pterygium, progressive 10/15/2017 04/01/2020 Vitamin D deficiency 10/15/2017 021 Anemia 07/19/2017 04/16/2021 Stenosis of bilateral carotid arteries 05/06/2017 04/01/2020 Coronary arteriosclerosis 05/06/2017 Overview (04/01/2020): Old OR x 2 Stented - x 3: 2014 PCI to LAD and CIRCSTEMI, 08/2016 RCA BRIDGET Hyperlipidemia 05/06/2017 04/01/2020 Chronic obstructive pulmonary disease 01/26/2022 Immunizations Name Administration Dates Next Due Influenza Split High Dose Pr eservative Free IM 08/15/2022,10/30/2021,10/04/2020,08/19,09/18/2018,08/22/2017,11/15/2016 Moderna SARS-COV-2 02/01/2022,05/04/2021, 021 Pneumococcal Conjugate 13-Valent 12/17/2016 Pneumococcal Polysaccharide 10/31/2012, 7 Pneumococcal, Unspecified 05/30/2023 Td 11/25/1997 Tdap 06/25/2018 Family History Medical History Relation Comments Diabetes Father Diabetes Mother Heart disease Mother uncle Cancer Sibling Relation Status Comments Father Unknown Mother Unknown Sibling Social History Tobacco Use Types Packs/Day Years [...] on file Sexual Orientation Not on file Last Filed Vital Signs Vital Sign Reading Time Taken Comments Blood Pressure 138/68 10/31/2021 3:46 PM EST Pulse 68 10/15/2019 12:00 PM EST Temperature - - Respiratory Rate 16 10/15/2019 12:00 PM EST Oxygen Saturation - - Inhaled Oxygen Concentration - - Weight 87.1 kg (192 lb) 10/31/2021 3:46 PM EST Height 157.5 cm (5' 2 ) 10/31/2021 3:46 PM EST Body Mass Index 35.12 10/31/2021 3:46 PM EST Plan of Treatment Upcoming Encounters Date Type Department Care Team (Late st Contact Info) Description 03/09/2025 2:15 PM EDT Office Visit [facility], [address] [place] [address] Wayne Zepeda MD [address] [place] [address] Health Maintenance Due Date Last Done Comments Diabetes: Ophthalmology Exam 02/26/2020 Diabetes: Pedal Pulse Checked 02/26/2020 Diabetes: Sensory Foot Exam 02/26/2020 Diabetes: Visual Foot Exam 02/26/2020 Diabetes: Hemoglobin A1C 03/17/2024 024, 06/12/2023, 11/02/2022, Additional history exists Influenza Vaccine (#1) 2024 2, 10/30/2021, 10/04/2020, Additional history exists Pneumococcal Vaccine: 65+ Years Completed 05/30/2023, 05/30/2023, 12/17/2016, Additional history exists Hepatitis B Vaccine Aged Out No longe r eligible based on patient's age to complete this topic Procedures Procedure Name Priority Date/Time Associated Diagnosis Comments HEMOGLOBIN A1C Routine 01/25/2022 2:15 PM EST Stage 3b chronic kidney disease (HCC) Type 2 diabetes mellitus, not otherwise specified (HCC) from Last 3 Months or Most Recently Relevant to Health Maintenance Results * (ABNORMAL) Hemoglobin A1c (01/25/2022 2:15 PM EST) Hemoglobin A1C 7.9(H) (4.0-5.6) % [facility] Comment: MONITORING: In known diabetic patients, hemoglobin A1c targets should be discussed with health care provider. DIAGNOSTIC USE: ??The [place] Diabetes Association (ADA) and the World Health Organization (WHO) recommend the use of HbA1c to diagnose diabetes using a threshold of 6.5%. Patients who have an HbA1c between 5.7% and 6.4% are considered at increased risk for developing diabetes in the future. CAUTION: Falsely low HbA1c results may be observed in patients with hemolytic anemia, homozygous forms of abnormal hemoglobin (e.g. SS, CC, SC), , recent blood loss or hemoglobin F greater than 7%. Fructosamine may be used as an alternate test in these cases. REFERENCE: ADA: Standards of Medical Care in Diabetes 2020, The Journal of Clinical and Applied Research and Education Volume 43, Supplement 1 Testing performed or reported by [facility], a Service of [facility], [address] [place] [address] Soto Torres MD, Ring Sewer [facility]# [id number] Blood (Blood, Venous) 01/25/2022 2:15 PM EST 01/25/2022 4:37 PM EST us Wayne Zepeda MD LAB BLOOD ORDERABLES Final Resul t [facility] from Last 3 Months or Most Recently Relevant to Health Maintenance Insurance [facility] ([id number]) [facility] ([id number]) Care Teams Software Implementation Project Manager Relationship Specialty Start Date End Date Elisa Lyman MD PCP - General Internal Medicine 10/31/21
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
--- OUTSIDE RECORDS SUMMARY | 2024-12-29 12:08 | XMS_ITS | Data Portability ---
Author Organization [facility] [place] [facility] [employer] Address [address] [place] [address] Care Team Providers Care Hazardous Material Specialist Name Role Phone [facility] Referring Provider [phone] Assessment Encounter Date Assessment Date Assessment LastModified by Organization Details LastModified Time 11/07/2023 11/07/2023 78 yo M with recent admission for syncope and ?chf exacerbation. Was discharged home with increased torsemide dosing (40mg daily, up from 20mg daily). Pt initially p/w relative hypotension and tachycardia, but once pottery striper arrived, pt has been asymptoms - no CP, SOB, dizziness and able to ambulate w/o difficulty with BP 150/70s and HR 70s. Pt is afebrile without orthostasis by VS. Per medic, patient appears dry, lungs are CTAB and no LE edema. VS wnl. neg orthostatics BMP with Cr 2.4 (up from baseline 1.7) #MAE, non-oliguric likely iso overdiuresis (w/recent dose increase). - rec'd holding PM dose tonight and holding torsemide completely for next 2 days. Pt can resume with 20mg daily of torsemide on 11/10. - pt has lab appt on Saturday for repeat BMP to check renal function - instructed to weigh himself daily; if > 2kg weight gain in single day, call [facility] or PCP - if symptoms of SOB or LE edema, instructed to call [facility] or PCP, as may need torsemide dose titration. [email or web address] Not available 11/07/2023 19:39:26 Plan of Treatment Reminders Order Date Submit Date Provider Last Modified By Organization Details Last Modified Time Details Appointments None recorded . Lab BMP, serum or plasma 023 11/07/20 23 [email or web address] [facility], [address] [place], [address], 3 16:25:07 Referral None recorded . Procedures None recorded . Surgeries None recorded . Imaging None recorded . Medication Orders None recorded . Patient TargetsNo targets recorded. Patient Instructions Encounter Date Encounter Id Patient Instructions Last Modified By Organization Details Last Modified Time 11/07/2023 [id number] orthostatic vitals* TONYA Not available 11/08/2024 05:01:30 Reason for Referral None Reported. Medical Equipment None Reported. Medications Name Sig Start Date Stop Date Status Note LastModified by Organization Details LastModified Time atorvastatin 80 mg tablet TAKE 1 TABLET BY MOUTH DAILY active Not Available Not Available Not Available carvedilol 6.25 mg tablet TAKE 2 TABLETS BY MOUTH EVERY MORNING AND 1 TABLET BY MOUTH EVERY EVENING active Not Available Not Available No t Available carvedilol 12.5 mg tablet TAKE 1 TABLET BY MOUTH TWO TIMES A DAY active Not Available Not Available Not Available torsemide 20 mg tablet active Not Available Not Available No t Available Nystop 100,000 unit/gram topical powder APPLY 1 DOSE TO AFFECTED AREA 3 TIMES DAILY FOR 3 WEEKS active Not Available Not Available Not Available prednisone 20 mg tablet active Not Available Not Available Not Available isosorbide mononitrate ER 30 mg tablet,exten ded release 24 hr TAKE 2 TABLET BY MOUTH EVERY DAY active Not Available Not Available No t Available Lantus U-100 Insulin 100 unit/mL subcutaneous solution active Not Available Not Available Not Available torsemide 10 mg tablet TAKE 1 TABLET BY MOUTH EVERY DAY active Not Available Not Available No t Available amlodipine 2.5 mg tablet active Not Available Not Available Not Available clopidogrel 75 mg tablet TAKE 1 TABLET BY MOUTH DAILY active Not Available Not Available Not Available carvedilol 3.125 mg tablet active Not Available Not Available Not Available isosorbide mononitrate ER 60 mg tablet,exten ded release 24 hr TAKE 2 TABLETS BY MOUTH EVERY DAY active Not Available Not Available No t Available cephalexin 500 mg capsule TAKE 1 CAPSULE BY MOUTH FOUR TIMES DAILY FOR 10 DAYS active Not Available Not Available Not Available lisinopril 10 mg tablet TAKE 1 TABLET BY MOUTH TWICE DAILY active Not Available Not Available No t Available nitroglyceri n 0.4 mg sublingual tablet TAKE ONE TABLET UNDER TONGUE NEEDED FOR CHEST PAIN active Not Available Not Available N ot Available aspirin 81 mg chewable tablet CHEW AND SWALLOW 1 TABLET BY MOUTH DAILY active Not Available Not Available Not Available ferrous sulfate 325 mg (65 mg iron) tablet,delay ed release TAKE 1 TABLET BY MOUTH EVERY DAY active Not Available Not Available No t Available tobramycin 0.3 %-dexamethas one 0.1 % eye drops,suspen celestino active Not Available Not Available Not Available Novolog FlexPen U-100 Insulin aspart 100 unit/mL (3 mL) subcutaneous active Not Available Not Available Not Available FreeStyle Lite Strips USE TO CHECK BLOOD SUGAR THREE TIMES DAILY active Not Available Not Available Not Available FeroSul 325 mg (65 mg iron) tablet TAKE 1 TABLET BY MOUTH DAILY active Not Available Not Available Not Available Lantus Solostar U-100 Insulin 100 unit/mL (3 mL) subcutaneous pen ADMINISTER 28 UNITS UNDER THE SKIN AT BEDTIME active Not Available Not Available No t Available PreserVision AREDS-2 250 mg-90 mg-40 mg-1 mg capsule TAKE 1 CAPSULE BY MOUTH TWICE DAILY active Not Available Not Available No t Available Jardiance 10 mg tablet TAKE 1 TABLET BY MOUTH EVERY DAY active Not Available Not Available No t Available Incruse Ellipta 62.5 mcg/actuatio n powder for inhalation INHALE 1 PUFF INTO THE LUNGS DAILY active Not Available Not Available No t Available Baqsimi 3 mg/actuation nasal spray USE NASALLY DIRECTED NEEDED FOR HYPOGLYCEMI A active Not Available Not Available No t Available Vitals Date Recorded Oxygen saturation Oxygen saturation in Arterial blood by Pulse oximetry Respiratory rate Body temperature Heart rate Systolic blood pressure Diastolic blood pressure Provider Name and Address Organization Details Last Updated DateTime 3 95 % 95 % 18 /min 98 [degF] 77 /min 150 mm[Hg] 77 mm[Hg] Not Available [employer] 3 17:32:44 Date Recorded Heart rate Body height Oxygen saturation Oxygen saturation in Arterial blood by Pulse oximetry Body temperature Body weight Respiratory rate Systolic blood pressure Diastolic blood pressure Provider Name and Address Organization Details Last Updated DateTime 3 84 /min 157.48 cm 96 % 96 % 98 [degF] 56637.5 6 g 18 /min 154 mm[Hg] 72 mm[Hg] Not Available [employer] 3 16:21:54 Social History None recorded. Functional Status None recorded. Mental Status None recorded. Family History Nothing Reported. Medical History No medical history recorded. Past Encounters Encounter ID Performer Location Encounter Start Date Encounter Closed Date Diagnosis/Indication Diagnosis SNOMED-CT Code Diagnosis ICD10 Code Diagnosis Note [id number] PHI REDMOND MD [facility] [address] [place] [phone] 11/07/2023 17:32:40 11/08/2023 10:26:21 Hypotensive episode 96324355 I95.9 Acute kidney injury 1466 9001 N17.9 [id number] Kenton Wilkinson MD Main - [facility] [address] [place] [phone] 11/12/2023 16:21:46 11/13/2023 14:31:07 Chronic kidney disease 137333480 N18.9 This 78-year-ol d male with multiple chronic medical problems recently had multiple medication s decreased due to a decline in his renal function. He was seen today for follow-up lab. His renal function has improved. He will follow-up with his regular physicians . The patient agreed with this plan. Health Concerns Section Related Observation LastModified by Organization Detai ls LastModified Time None Recorded Concern Status LastModified by Organization Details LastModified Time None Recorded Advance Directives Directive None Recorded Payers Encounter Date Sequence Insurance Name Policy Number Policy Guidry Covered Member ID Guidry Member ID Guarantor Name 11/07/2023 1 [facility] - DOS ON OR AFTER 2023 - DUAL ELIGIBLE - SNF OPTIONS AND ONE CARE (MEDICARE REPLACEMENT/ADV ANTAGE - HMO) Misael Gómez [id number] Misael Gómez 11/12/2023 1 [facility] - DOS ON OR AFTER 2023 - DUAL ELIGIBLE - SNF OPTIONS AND ONE CARE (MEDICARE REPLACEMENT/ADV ANTAGE - HMO) Misael Gómez [id number] Misael Gómez Notes Date Note Type Note Provider Name and Address Organization Details Recorded Time 11/07/2023 text/html HPI: 78 yo M with CHF, CAD, HLD, HTN with CKD and CHF, HLD, T2DM on insulin, SANDOVAL, COPD on supplemental oxygen, obesity, OA. h/o ARDS. Hospitalized 10/03-10/14 for multifocal pneumonia and NSTEMI. Hospitalized 10/29-10/31 hypoxia due to CHF. he was discharged home on 10/31 and syncopized on arrival home, transferred back to ED, admitted 10/31-11/04/23-disc hargd with HTN medication changes and increased diuretic. Unknown reason for syncope at this time as all other tests negative. Today seen for [facility] virtual visit, feels tired but otherwise well. HR 100-102 (normally 70s-80s), BP 97/54, 02 96% 3L. This morning BP check 116/50. Recent medication changes during recent hospitalizations: carvedilol halved to 3.125mg PO BID, torsemide increased to 20mg PO BID (prior 10 BID), Isosorbide decreased to 30mg PO BID, lisinopril and amlodipine d/c'd, Lantus decreased to 12 units qPM. 10/30/23 Labs: Na 141, K 4.7, Chlor 106, C02 25, Anion gap 15, BUN 71, Cr 1.76 .................. .................. .................. .................. .................. .................. .................. ............... CRC Nursing Assessment: Comments: CRC RN DID NOT NEED FURTHER INFO Baseline Information: Baseline Hb: 10 g/dL Baseline HCt: 32% Baseline Creatinine: 1.76 mg/dL .................. .................. .................. .................. .................. .................. .................. ............... Projection Printer Note From Dayanara Ramey: Community Projection Printer Yumiko Ramey [email or web address] dispatched to a yellow for a 78 yom C/O a tachycardic episode. Upon arrival, the pt was sitting up in bed, awake and alert, RENO X4, in no apparent distress. His skin was warm pink and extremely dry, and he stated he felt well at that time. He was recently hospitalized for a CHF exacerbation, and then immediately hospitalized again for a syncopal episode. He and his daughter/shoe repairman stated that his meds had been changed upon his discharge (decreased carvedilol and increased torsemide), and that they noticed his HR was high (100 bpm) and his BP was low (100 SBP) after his shower that day. They reported sending cardiac data daily via his cardiomems to his Mechanical Apprentice, but that they were not contact prior to his CHF exacerbation. The pt denied any weakness, dizziness, vision changes, SOB, CP, palpitations before, during, or after the episode [facility] He denied fever, ALICEA, cough, sore throat, abd pain, N/V/D, or urinary S/S. VS stable, [facility] consulted. BMP acquired[facility]. Pt was given instructions to hold torsemide until Saturday, and then to only take 20 mg daily. He was instructed to have his kidney function checked again on Saturday. All this information was written down clearly for the pt and his daughter, who agreed to contact his Mechanical Apprentice again the following day. She reported attempting to reach out that day but hadn't heard back. Red flags discussed at length. [facility] Lab Orders: BMP, serum or plasma: Performed .................. .................. .................. .................. .................. .................. .................. ............... Disposition: Nam REDMOND MD [address] [facility], [place], [address], [place] [employer] 11/07/2023 19:39:38 11/12/2023 text/html HPI: 78 yo M with CHF, CAD, HLD, HTN with CKD and CHF, HLD, T2DM on insulin, SANDOVAL, COPD on supplemental oxygen, obesity, OA. h/o ARDS. Hospitalized 10/03-10/14 for multifocal pneumonia and NSTEMI. Hospitalized 10/29-10/31 hypoxia due to CHF. he was discharged home on 10/31 and syncopized on arrival home, transferred back to ED, admitted 10/31-11/04/23-disc hargd with HTN medication changes and increased diuretic. Unknown reason for syncope at this time as all other tests negative. Seen by [facility] last week, torsemide held and restarted lower dose but member having difficulty getting out for lab recheck (motor vehicle or caravan salesperson is in [place]). This morning VS: 119/59, HR 75, 02 94%. Recent medication changes during recent hospitalizations: carvedilol halved to 3.125mg PO BID, Isosorbide decreased to 30mg PO BID, lisinopril and amlodipine d/c'd, Lantus decreased to 12 units qPM. Cr at last [facility] visit 2.4, baseline 1.4-1.8. Cardiomems with stable PA pressures today, weight at home 180#. BG 159 (known to have silent hypoglycemia). .................. .................. .................. .................. .................. .................. .................. ............... CRC Nurse Triage Notes (Sharon Armenta): Comments: CRC RN DID NOT NEED FURTHER INFO Kenton Wilkinson MD [address] [facility],[address], [place], [address], [facility] 11/12/2023 16:26:19
--- OUTSIDE RECORDS SUMMARY | 2024-12-29 12:08 | XMS_ITS | Encounter Summary ---
Author Organization [facility] Address [address] [place] [address] Care Team Providers Care Production Planning Manager Name Role Phone Elisa Lyman MD Primary Care Provider [phone] Reason for Visit * Reason Comments Hospital Follow-up Encounter Details Date Type Department Care Team (Late st Contact Info) Description 12/09/2024 3:00 PM EST Office Visit Adult Medicine [facility] [address] [place] [phone] Elisa Lyman MD [address] [place] [phone] Acute on chronic respiratory failure with hypoxia (CMS/HCC) (Primary Dx); Stage 3 chronic kidney disease, unspecified whether stage 3a or 3b CKD (CMS/HCC); Anemia, unspecified type; Stage 1 mild COPD by GOLD classification (CMS/HCC); Congestive heart failure, unspecified HF chronicity, unspecified heart failure type (CMS/HCC); Coronary artery disease involving [place] coronary artery of [place] heart without angina pectoris; Type 2 diabetes mellitus with stage 3 chronic kidney disease, with long-term current use of insulin, unspecified whether stage 3a or 3b CKD (CMS/HCC) Social History Tobacco Use Types Packs/Day Years [...] on file documented as of this encounter Last Filed Vital Signs Vital Sign Reading [...] Mass Index 32.01 12/09/2024 3:16 PM EST documented in this encounter Progress Notes * Elisa Lyman MD - 12/09/2024 3:00 PM EST CHIEF COMPLAINT: Hospital Follow-up IDENTIFIER: Misael Gómez is a 79 y.o. old male. HPI: Patient presents for evaluation of multiple medical issues, recent hospitalization for respiratory failure. Today as usual, patient is accompanied by his very attentive daughter who has multiple questions. I obtained patient's discharge summary, although initially available to me is only patient's ER records. Patient was admitted November 25, 2024, discharged December 01, 2024. Principal diagnosis included acute on chronic respiratory failure with hypoxia, CHF exacerbation, chronic kidney disease. During thishospitalization patient was seen in consultation by cardiology and pulmonology. Patient presented with 1 day history of severe shortness of breath and dyspnea on exertion. There is also mentioning of orthopnea. There is also reported complaint of lower extremity edema in the ER, imaging with bilateral pulmonary edema and elevated BNP and patient was initiated with IV diuresis. During the hospitalization spironolactone was added as well as Jardiance. Cardiology directed treatment and upon discharge patient switched to p.o. diuretics. Patient also noted to have pneumonia and was started on Rocephin and azithromycin. Patient was evaluated by pulmonology who recommended checking MRSA screen which was negative urine strep and Legionella was initially pending. Though mentioned on the discharge summary patient's chronic medical issue CKD coronary artery disease diabetes were believed to be overall stable. Today patient reported that she feels much better although he still has chronic cough, chronic dyspnea on exertion he is at baseline with 4 L nasal cannula oxygen supplementation. I also obtained and reviewed patient's laboratory study with a mild hyponatremia with sodium of 131, potassium 4.4, BUN 55, creatinine 1.87 I also reviewed patient point affect glucose which appears to be fluctuating. I reconciled her medication, patient does not appears to be challenged with systemic steroids. ROS: GENERAL: Negative for malaise, significant weight loss and fever and SEE HPI RESPIRATORY: See HPI CARDIOVASCULAR: Negative for chest pain, leg swelling and palpitations, See HPI GI: Negative for abdominal discomfort, changes in bowel habits, blood in stool or black stools HEMATOLOGY/LYMPHOLOGY: No prolonged bleeding, easy bruising, or swollen lymph nodes ENDOCRINE: Negative for cold or heat intolerance, polyuria, polydipsia and goiter PAST MEDICAL HISTORY: Patient Active Problem List Diagnosis Date Noted Congestive heart failure ([facility]) 10/04/2020 Diastolic dysfunction 10/04/2020 Supplemental oxygen dependent 10/04/2020 Centrilobular emphysema ([facility]) 06/30/2019 Abnormality of lung on CXR 08/06/2018 Hypoxia 08/06/2018 Snoring 08/06/2018 Stage 1 mild COPD by GOLD classification ([facility]) 08/06/2018 Background retinopathy 02/19/2018 Microalbuminuria 10/15/2017 Nuclear age-related cataract, both eyes 10/15/2017 Type 2 diabetes mellitus with vascular disease ([facility]) 10/15/2017 Vitamin D deficiency 10/15/2017 Anemia 07/19/2017 Type 2 diabetes mellitus with renal manifestations ([facility]) 07/19/2017 Bilateral carotid artery stenosis 05/06/2017 CAD (coronary artery disease) 05/06/2017 CKD (chronic kidney disease) stage 3, GFR 30-59 ml/min ([facility]) 05/06/2017 Essential hypertension 05/06/2017 Hyperlipidemia 05/06/2017 SOCIAL HISTORY: Social History Tobacco Use Smoking status: Former Current packs/day: 0.00 Average packs/day: 1 pack/day for 53.0 years (53.0 ttl pk-yrs) Types: Cigarettes Start date: 1960 Quit date: 2013 Years since quittin.9 Smokeless tobacco: Never Substance Use Topics Alcohol use: Not Currently FAMILY HISTORY: Family Status Relation Name Status Brother Sister Father Mother Brother No partnership data on file Family History Problem Relation Name Age of Onset Lung cancer Brother Uterine cancer Sister No Known Problems Father age 117 Liver cancer Mother Stroke Brother Lung Cancer ACTIVE MEDICATIONS: Outpatient Medications Marked as Taking for the 12/09/24 encounter (Office Visit) with Elisa Lyman MD Medication Sig Dispense Refill aspirin 81 mg chewable tablet Chew 1 tablet (81 mg total) 1 (one) time each day. atorvastatin (LIPITOR) 80 mg tablet Take 1 tablet (80 mg total) by mouth 1 (one) time each day. blood sugar diagnostic (FreeStyle Lite Strips) test strip DIRECTED TO TEST BLOOD SUGAR THREE TIMES DAILY carvediloL (COREG) 3.125 mg tablet Take 1 Tablet by mouth 2 times daily (with meals). Metal Mover,KELSEY CUENCA prescribed this medicine empagliflozin (Jardiance) 25 mg tablet Take 25 mg by mouth daily. ferrous sulfate 325 mg (65 mg elemental iron) tablet TAKE 1 TABLET BY MOUTH DAILY flash glucose scanning reader (FreeStyle Neli 2 [place]) misc 1 Device by Does not apply route daily. Use to scan blood sugars at least every 8 hours flash glucose sensor (FREESTYLE NELI 2 SENSOR MISC) 1 Device by Does not apply route every 14 days. glucagon (Gvoke HypoPen 1-Pack) 0.5 mg/0.1 mL auto-injector Inject 1 Dose into the skin as needed for Other (severe hypoglycemia). insulin aspart (NovoLOG Flexpen U-100 Insulin) 100 unit/mL (3 mL) injection pen Inject three times a day with meals depending on scale 100-150: 8 units; 151- 200: 10 units; 201-250: 11 units ; 251-300: 12 units; 301-350: 13 units; 351- 400: 14 units insulin glargine (Lantus Solostar U-100 Insulin) 100 unit/mL (3 mL) injection pen Inject 14 Units into the skin at bedtime. ipratropium-albuteroL (DUONEB) 0.5-2.5 mg/3 mL nebulizer solution Inhale 3 mL into the lungs 4 times daily. isosorbide mononitrate (IMDUR) 30 mg 24 hr tablet Take 1 Tablet by mouth 2 times daily. Metal MoverJOELLEN MOHAMMED prescribed this medicine nitroglycerin (NITROSTAT) 0.[address] 1 Tablet under the tongue every 5 minutes as needed for Chest pain. Metal Mover, KELSEY CUENCA prescribed this medicine pen needle, diabetic 29 gauge x 1/2 needle Use to administer Insulin 4 times daily spironolactone (ALDACTONE) 25 mg tablet Take 1 tablet (25 mg total) by mouth 1 (one) time each day.Half a tab daily torsemide (DEMADEX) 10 mg tablet Take 1 Tablet by mouth 2 times daily. Metal Mover, KELSEY CUENCA prescribed this medicine vit C/E/Zn/coppr/lutein/zeaxan (PRESERVISION AREDS-2 ORAL) Take by mouth. ALLERGIES: Patient has no known allergies. PHYSICAL EXAM: Blood pressure (!) 143/61, pulse 78, temperature 36 ??C (96.8 ??F), temperature source Temporal, resp. rate (!) 28, height 1.575 m (62 ), weight 79.4 kg (175 lb), SpO2 97%. Body mass index is 32.01 kg/m??. BMI is greater than 25.0 (above the normal range) - see Plan APPEARANCE: Alert and in no acute distress MOUTH/THROAT: no erythema, lesions, or exudates NECK: No JVD CHEST: No focal tenderness, some bibasilar crackles that changes with cough, some transmitted soundfrom oxygen, normal S1-S2 ABDOMEN: Bowel sounds normoactive, no bruits and soft, non-tender, without organomegaly or palpablemasses EXTREMITIES: Trace edema at the ankles NEURO: Awake, alert and oriented x 3 and reflexes symmetrical SKIN: Skin color, texture, turgor normal. No rashes or lesions. LABS: I reviewed the laboratory results as mentioned above in HPI No results found for: GLUCOSE , CALCIUM , NA , K , CO2 , CL , BUN , CREATININE Wt Readings from Last 5 Encounters: 12/09/24 79.4 kg (175 lb) 09/09/24 82.6 kg (182 lb) 08/04/24 83.9 kg (185 lb) 06/08/24 83.9 kg (185 lb) 03/18/24 83.9 kg (185 lb) Lab Results Component Value Date HGBA1C 8.4 (A) 09/09/2024 Lab Results Component Value Date MICROALBCREA abstracted 09/09/2024 BP Readings from Last 5 Encounters: 12/09/24 (!) 143/61 09/17/24 130/64 09/09/24 125/54 07/13/24 128/52 06/08/24 112/56 IMPRESSION: No diagnosis found. PLAN: Patient presents for evaluation of multiple medical issues, recent hospitalization for respiratory failure. Today as usual, patient is accompanied by his very attentive daughter who has multiple questions. I obtained patient's discharge summary, although initially available to me is only patient's ER records. Patient was admitted November 25, 2024, discharged December 01, 2024. Principal diagnosis included acute on chronic respiratory failure with hypoxia, CHF exacerbation, chronic kidney disease. During thishospitalization patient was seen in consultation by cardiology and pulmonology. Patient presented with 1 day history of severe shortness of breath and dyspnea on exertion. There is also mentioning of orthopnea. There is also reported complaint of lower extremity edema in the ER, imaging with bilateral pulmonary edema and elevated BNP and patient was initiated with IV diuresis. During the hospitalization spironolactone was added as well as Jardiance. Cardiology directed treatment and upon discharge patient switched to p.o. diuretics. Patient also noted to have pneumonia and was started on Rocephin and azithromycin. Patient was evaluated by pulmonology who recommended checking MRSA screen which was negative urine strep and Legionella was initially pending. Though mentioned on the discharge summary patient's chronic medical issue CKD coronary artery disease diabetes were believed to be overall stable. Today patient reported that she feels much better although he still has chronic cough, chronic dyspnea on exertion he is at baseline with 4 L nasal cannula oxygen supplementation. I also obtained and reviewed patient's laboratory study with a mild hyponatremia with sodium of 131, potassium 4.4, BUN 55, creatinine 1.87 I also reviewed patient point affect glucose which appears to be fluctuating. I reconciled her medication, patient does not appears to be challenged with systemic steroids. 1 acute on chronic respiratory failure, under very complex cardiopulmonary picture, with discovery of pneumonia, I had extensive discussion with this patient. I tried my best to answer patient and family's many questions. A CHF, under the setting of known CAD yet there is no active evidence of cardiac ischemia. Echocardiogram reviewed diastolic dysfunction component although patient likely has multiple contributing factors. We will continue current diuresis. I had extensive discussion with very attentive daughter regarding evaluation for fluid status, leg edema and change of breathing. Patient/family should prompt reporting increased welling, orthopnea. Family will call and arrange early appointment with cardiology B COPD, O2 dependent. Worsening with pneumonia. Discussed somewhat limited treatment options, discussed precautions, strategy to prevent infection in this season. Patient should continue O2 supplementation, inhalers. We discussed further immunization in this patient with multiple comorbidities Patient has appointment to see pulmonology in 2 to 3 weeks C pneumonia, symptom appears to have a quite subacute presentation without preceding URI. Patient was treated with Rocephin Zithromax completing course of antibiotics. Examination revealed no focal findings, Patient will continue to follow with pulmonology. See above regarding discussion on immunization 2 discussed the patient's laboratory abnormalities during this hospitalization A acute renal injury under the setting of CKD with aggressive IV diuresis. I will monitor renal function, discussed volume control as above B hyponatremia, under the setting of acute illness, pulmonary infection. I will follow renal function electrolytes 3 diabetes, prolonged discussion regarding patient diabetes control, significant hyperglycemia alsochallenges good volume control, poorly controlled diabetes may also cause disease progression of multiple chronic issues. I yet understand regarding quality of life, in this 79-year-old with multiple medical issues. With CHF, I clearly agree with use of Jardiance on the other hand it increased complexity regardingvolume control. I discussed in detail with family regarding monitoring urination weight edema, as above Patient also have VNA support for close monitor, including monitor compliance of medication, with the patient's multiple diuresis. I will closely monitor renal function electrolytes. Patient has appointment already scheduled with endocrine this month. 4 anemia, under the setting of CKD. No active bleeding, I will repeat a CBC 5 we discussed aggressive care, CODE STATUS. Daughter is very involved in patient's care. It was an extensive discussion, I spent 40 minutes with time spent on obtaining patient's records, and detailed discussion answering family's questions, outlining future treatment plan as mentioned above. I ordered repeat laboratory studies, and personally arranged follow-up, and I will discuss treatment plan with my care team. No orders of the defined types were placed in this encounter. ADDITIONAL ORDERS: None Elisa Lyman MD on 12/09/2024 at 3:40 PM EST documented in this encounter Plan of Treatment Upcoming Encounters Date Type Department Care Team (Late st Contact Info) Description 01/11/2025 2:00 PM EST Office Visit Adult [facility] - [place] [address] [place], [place] [phone] Ashish Garcia PA [address] [place], [place] 02/17/2025 3:45 PM EDT Office Visit Endocrinology - [place] [address] [place], [place] [phone] Lesly Gonzalez PA [address] [place] [address] Scheduled Orders Name Type Priority Associated Diagnoses Orde r Schedule CBC and differential Lab Routine Congestive heart failure, unspecified HF chronicity, unspecified heart failure type (CMS/HCC) Acute on chronic respiratory failure with hypoxia (CMS/HCC) 1 Occurrences starting 12/09/2024 until 12/09/2025 Basic metabolic panel Lab Routine Congestive heart failure, unspecified HF chronicity, unspecified heart failure type (CMS/HCC) Acute on chronic respiratory failure with hypoxia (CMS/HCC) 1 Occurrences starting 12/09/2024 until 12/09/2025 N-Terminal Probnp Lab Routine Congestive heart failure, unspecified HF chronicity, unspecified heart failure type (CMS/HCC) Acute on chronic respiratory failure with hypoxia (CMS/HCC) 1 Occurrences starting 12/09/2024 until 12/09/2025 documented as of this encounter Visit Diagnoses Diagnosis Acute on chronic respiratory failure with hypoxia (CMS/HCC)- Primary Stage 3 chronic kidney disease, unspecified whether stage 3a or 3b CKD (CMS/HCC) Anemia, unspecified type Stage 1 mild COPD by GOLD classification (CMS/HCC) Congestive heart failure, unspecified HF chronicity, unspecified heart failure type (CMS/HCC) Coronary artery disease involving [place] coronary artery of [place] heart without angina pectoris Type 2 diabetes mellitus with stage 3 chronic kidney disease, with long-term current use of insulin, unspecified whether stage 3a or 3b CKD (CMS/HCC) documented in this encounter Historical Medications * This list may reflect changes made after this encounter. Medication Sig Dispensed Refills Start Date End Date mv-min/FA/vit K/lutein/zeaxant (PRESERVISION AREDS 2 PLUS MV ORAL) Take by mouth. sodium bicarbonate 650 mg tablet Take 1 tablet (650 mg total) by mouth 1 (one) time each day. spironolactone (ALDACTONE) 25 mg tablet Take 1 tablet (25 mg total) by mouth 1 (one) time each day. Half a tab daily added in this encounter Care Teams Production Planning Manager Relationship Specialty Start Date End Date Elisa Lyman MD [address] [place] [id number] PCP - General Internal Medicine 04/16/17 documented as of this encounter
--- OUTSIDE RECORDS SUMMARY | 2024-12-29 12:08 | XMS_ITS | Encounter Summary ---
Author Organization [facility] Address [address] [place] [address] Care Team Providers Care Electric Meter Technician Name Role Phone Elisa Lyman MD Primary Care Provider [phone] Reason for Visit * Reason Onset Date Comments FYI 12/22/2024 Encounter Details Date Type Department Care Team (Late st Contact Info) Description 12/22/2024 Telephone Adult Medicine [facility] [address] [place] [phone] Elisa Lyman MD [address] [place] [address] FYI Social History Tobacco Use Types Packs/Day Years [...] as of this encounter Progress Notes * Maye Mora - 12/22/2024 4:58 PM EST Katharine is calling in as a FYI. She states that she is providing services for the patient [facility] starting today 12/22/2024. They are calling to inform Elisa Lyman MD that they are providing theseservices to the patient: Gold of care discussion , advanced care planing and symptoms management. If you have any question contact info is provided. Please Advise. documented in this encounter Plan of Treatment Upcoming Encounters Date Type Department Care Team (Late st Contact Info) Description 01/11/2025 2:00 PM EST Office Visit Adult [facility] [place] [facility] [place] [address] [place] [address] Ashish Garcia PA [address] [place], [place] 02/17/2025 3:45 PM EDT Office Visit Endocrinology - [address] [phone] Lesly Gonzalez PA [address] [facility] [place] [address] documented as of this encounter Visit Diagnoses Not on filedocumented in this encounter Care Teams Electric Meter Technician Relationship Specialty Start Date End Date Elisa Lyman MD [address] [place] [address] PCP - General Internal Medicine 04/16/17 documented as of this encounter
[2024-12-29] MEDS: Calcium Gluconate/NaCl,Iso-Osm 1 GM/50 ML PLAST..BAG IV (12:34)
[2024-12-29 12:51] LABS: Basophils Absolute Auto 0.2 X10*3/uL (0.0-0.2); Basophils Percent Auto 0.5 % (0-2); Eosinophils Absolute Auto 0.9 X10*3/uL (0.0-0.4); Eosinophils Percent Auto 2.8 % (0-4); Hematocrit 40.4 % (42.0-52.0); Hemoglobin 12.8 g/dl (14.0-18.0); Imm Gran Pct Auto 3.8 % (0.0-0.4); Lymphocytes Absolute Auto 4.5 X10*3/uL (1.2-4.9); Lymphocytes Percent Auto 14.3 % (20-40); MANUAL DIFF FLAG SCAN; Mean Corpuscular HGB Conc 31.7 g/dl (31.0-36.0); Mean Corpuscular Volume 91.6 fL (80.0-98.0); Mean Platelet Volume 10.6 fL (9.4-12.4); Monocytes Absolute Auto 0.9 X10*3/uL (0.1-1.2); Monocytes Percent Auto 2.9 % (2-11); Neutrophils Absolute Auto 23.8 x10*3/uL (2.0-8.3); Neutrophils Percent Auto 75.7 % (45-73); Platelet Count 292 X10*3/uL (160-400); Red Blood Count 4.41 X10*6/uL (4.60-5.80); Red Cell Distribution Width 14.8 % (11.0-16.0); SCAN SMEAR FLAG 1
[2024-12-29 12:56] LABS: VBG Base Excess -14.3 mmol/L; VBG HCO3 17 mmol/L (22-26); VBG pCO2 63 mmHg; VBG pH 7.03 (7.32-7.43); VBG pO2 52 mmHg
[2024-12-29 12:59] LABS: Venous Blood Gas Refer to POC result; White Blood Count 31.5 X10*3/uL (4.8-10.8)
[2024-12-29 13:03] LABS: Influenza A PCR NEGATIVE (Negative); Influenza B PCR NEGATIVE (Negative); Resp Syncy Virus RNA Qual PCR NEGATIVE (Negative); SARS COV2 PCR INHOUSE NEGATIVE (Negative)
[2024-12-29 13:05] LABS: Anion Gap 19 (12-20); Blood Urea Nitrogen 56 mg/dL (9-16); Calcium 7.9 mg/dL (8.4-10.2); Carbon Dioxide 17 mmol/L (22-29); Chloride 105 mmol/L (96-108); Creatinine Clr Calc Pharmacy 27.3; Estimated Glomerular Filt Rate 31; Glucose Random 196 mg/dL (60-115); Magnesium 2.1 mg/dL (1.6-2.6); Potassium 5.2 mmol/L (3.3-5.1); Sodium 136 mmol/L (135-145)
--- NOTE | 2024-12-29 13:08 | PC.NURSE ---
per Cholo Goff, did not give blood while waiting for repeat CBC to result.
[2024-12-29] MEDS: Sodium Bicarbonate 8.4% 150 MEQ in Dextrose 5 % 850 ML 50 MEQ IV (13:10)
[2024-12-29] MEDS: Piperacillin Sodium/Tazobactam 4.5 GM in 0.9 % Sodium Chloride 100 ML IV (13:15)
[2024-12-29] MEDS: Lactated Ringers 1,000 ML 999 ML IV (13:22)
[2024-12-29 13:29] LABS: INTERNATIONAL NORM RATIO 1.3 (0.9-1.1); Prothrombin Time 14.9 SEC (10.9-12.4)
[2024-12-29 13:30] LABS: SLIDE REVIEW VERIFIED
[2024-12-29 13:31] LABS: Appearance Urine Cloudy; Color Urine Yellow; Glucose Urine UA 500 mg/dL (Negative); Leukocyte Esterase Urine Trace (Negative); Nitrite Urine Negative (Negative); PH 5.5 (5.0-9.0); UMIC TRIGGER UACC YES; Urine Blood Large (3+) (Negative); Urine Ketones Negative (Negative); Urine Protein 100 (2+) mg/dL (Neg-Trace)
[2024-12-29 13:32] LABS: Partial Thromboplastin Time 41.3 SEC (26.0-36.8)
[2024-12-29 13:35] LABS: Alanine Aminotransferase 533 U/L (0-40); Albumin Level 3.1 g/dL (3.5-5.0); Alkaline Phosphatase 122 U/L (39-117); Aspartate Amino Transferase 533 U/L (5-37); Bilirubin Direct 0.2 mg/dL (0.0-0.5); Bilirubin Total 0.5 mg/dL (0.0-1.0); Total Protein 6.8 g/dL (6.5-8.0)
[2024-12-29 13:43] LABS: Bacteria Urine 1+ (None Seen); Renal Epithelial Cells Urine Present; Transitional Epi Cells Urine Present; UACC Culture Trigger YES; WBC Urine 21-50 /HPF (0-5)
[2024-12-29 13:46] LABS: B Type Natriuretic Peptide 223 pg/mL (<100)
--- NOTE | 2024-12-29 14:07 | CA_ITS ---
Transthoracic Echocardiogram Patient (Last, First, Middle): Misael Gómez, Gender: Male Date of : 1945 Age: 79 Procedure Date: 12/29/2024 Procedure Type: Transthoracic Echocardiogram Location: ER Height: 160.02 cm Weight: 84.82 kg BSA: 1.88 m2 Heart Rate: bpm BP: 129 / 59 mmHg Orchard Sprayer: TO Referring MD: Cholo Goff MD Symptoms: s/p cardiac arrest Study Quality: Technically Difficult/Contrast Conclusions: - Normal left ventricular cavity size. The left ventricular systolic function is hyperdynamic. The visually estimated ejection fraction is >70%. - RV mildly dilated. There is free wall hypokinesis with mild RV dysfunction. 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 Findings Procedure Information Contrast agent, definity, is being given per protocol without apparent complications. The study quality is limited by patients body habitus and the presence of a ventilator. Left Ventricle Normal left ventricular cavity size. The left ventricular systolic function is hyperdynamic. The visually estimated ejection fraction is >70%. There is no evidence of regional wall motion abnormalities. Diastolic function is indeterminate on the basis of available data. There is severe septal asymmetric hypertrophy. Right Ventricle RV mildly dilated. There is free wall hypokinesis with mild RV dysfunction. Atria The left atrium is normal in size. Aortic Valve There is a normal trileaflet aortic valve. There is mild calcification of the aortic valve. There is no aortic valve stenosis. There is no aortic valve regurgitation. Mitral Valve The mitral valve appears normal. There is no mitral valve regurgitation. There is no mitral valve stenosis. Pulmonic Valve The pulmonic valve was not well visualized. Tricuspid Valve Normal tricuspid valve structure. There is trace tricuspid valve regurgitation. Tricuspid regurgitation envelope is inadequate for calculation of right ventricular systolic pressure. Indeterminate right atrial pressure. Great Vessels There is mild dilatation of the ascending aorta measuring 3.70 cm. Venous The inferior vena cava is dilated. Pericardium/Pleural There is no evidence of pericardial effusion. Measurements 2D Linear Measurements IVSd: 1.61 0.6-0.9/0.6-1.0 cm LVIDd: 3.28 3.9-5.3/4.2-5.9 cm LVIDd Index: 1.74 2.4-3.2/2.2-3.1 cm/m2 LVIDs: 2.14 2.0-3.6 cm LVPWd: 1.15 0.7-1.1 cm LA Diam: 2.00 2.7-3.8/3.0-4.0 cm LAIDs Index: 1.06 1.5-2.3 cm/m2 LV Mass: 192.46 67-162/88-224 g LV Mass Index: 102.37 43-95/49-115 g/m2 LVOT Diam: 2.40 3.0+(-)1.3 cm 2D Systolic Function EF 4C: 69.50 >55% Aortic Valve AoV Pk Rayray: 1.98 AoV Mn Rayray: 1.23 AoV VTI: 0.25 AoV Pk Grad: 16.00 Aov Mn Grad: 7.00 ANGUS Cont.VTI: 3.04 LVOT LVOT Pk Rayray: 1.15 LVOT Mn Rayray: 0.77 LVOT VTI: 0.17 LVOT Pk Grad: 5.00 LVOT Mn Grad: 3.00 LVOT Diam: 2.40 LVOT Area: 4.52 Right Ventricle TAPSE (mm): 17.40 TVS' Rayray: 13.90 Tricuspid Valve RA Press: 15.00 Great Vessels Aorta Sinus of Valsalva: 3.59 2.0-3.5 cm Ao Asc: 3.70 2.1-3.4 cm Updated in Other Vendor System with Status of Final Td White MD electronically signed on 12/29/2024 4:27:43 PM with status of Final
[2024-12-29 14:22] LABS: Glucose, Whole Blood 104 mg/dL (60-115)
--- NOTE | 2024-12-29 14:37 | PM.CNCAR ---
History of Present Illness History of Present Illness Date of Service: 12/29/24 Requesting physician: Cholo Goff Chief complaint: PEA arrest Narrative: 79-year-old gentleman with background history of heart failure with preserved ejection fraction, COPD on oxygen, obstructive sleep apnea, diabetes and kidney disease who recently left the hospital after treatment for pneumonia. Today he was going for outpatient appointment with his doctor when in the car he started feeling nauseous and apparently passed out. He was urgently brought into ER where he was unresponsive and CPR was started. It appears when the monitors were placed he was not in VT or VFib and had PEA arrest. He had return of circulation with few minutes of CPR but again had PA and was started on dopamine. The patient was seen in the room and was actually ventilated and sedated currently. Discussing with the nurse he was trying to hold the endotracheal tube and that is the reason for sedation currently. He is on propofol and 20 microgram per kg per minute of dopamine. This was decreased to 15 because he was quite tachycardic on the monitor. Apparently the monitor is double counting in his heart rate was displayed as 251 if fact that this is around 125-130. [facility] Past Medical History Medical History (Updated 12/29/24 @ 14:40 by Td White MD) Chronic kidney disease, stage 3 LARRY (obstructive sleep apnea) Acute and chronic respiratory failure with hypoxia Acute on chronic heart failure with preserved ejection fraction (HFpEF) Pneumonia Acute non-ST elevation myocardial infarction (NSTEMI) Adult respiratory distress syndrome Hyperlipidemia Hypertension Diabetes mellitus, type 2 Chronic respiratory failure with hypoxia COPD (chronic obstructive pulmonary disease) CKD (chronic kidney disease) CHF (congestive heart failure) Coronary artery disease Family History Family History Other Cancer Surgical History Surgical History S/P coronary artery stent placement Social History Social History Household Members: Family Housing: House Do you presently have visiting nurse or other home services: No Alcohol intake: never Patient Tobacco Use Status: Former Tobacco user Second Hand Smoke Exposure: No Advance Directives: Yes Advance Directives on File: No service: No Meds Allergies Allergy/AdvReac Type Severity Reaction Status Date / Time No Known Allergies Allergy Verified 12/29/24 11:20 Active Medications: Current Medications Fentanyl (Sublimaze/Ns) 1,000 mcg in 100 mls @ 0 mls/hr IVCONT .Q0M ANDREW; Protocol Last Titration: 12/29/24 11:56 Dose: 0 mcg/hr, 0 mls/hr Propofol (Diprivan) 1,000 mg in 100 mls @ 0 mls/hr IVCONT .Q0M ANDREW; Protocol Last Titration: 12/29/24 12:30 Dose: 40 mcg/kg/min, 20.42 mls/hr Sodium Bicarbonate 150 meq/ (Dextrose) 1,000 mls @ 50 mls/hr IV .Q20H ANDREW Last Admin: 12/29/24 13:10 Dose: 50 mls/hr Naloxone HCl (Naloxone Hcl 0.4 Mg/Ml Vial) 0.2 mg IVPUSH Q2M PRN PRN Reason: Excessive sedation or RR < 8 Home Medications ?Medication ?Instructions ?Recorded ?Confirmed ?Last Taken ?Type aspirin 81 mg chewable tablet 1 tab PO DAILY 10/03/23 11/26/24 11/25/24 History atorvastatin 80 mg tablet 80 mg PO DAILY 10/03/23 11/26/24 11/25/24 History empagliflozin 10 mg tablet 25 mg PO DAILY 10/03/23 11/26/24 11/25/24 History (Jardiance) ferrous sulfate 325 mg (65 mg 325 mg PO DAILY 10/03/23 11/26/24 11/25/24 History iron) tablet insulin aspart U-100 100 unit/mL See Protocol subcut TIDAC 10/03/23 11/26/24 11/25/24 History (3 mL) subcutaneous pen (Novolog FlexPen U-100 Insulin aspart) umeclidinium 62.5 mcg/actuation 1 inh inhalation DAILY 10/03/23 11/26/24 11/25/24 History blister powder for inhalation (Incruse Ellipta) nitroglycerin 0.4 mg sublingual 0.4 mg sublingual Q5M PRN Chest 10/29/23 11/26/24 11/25/24 History tablet Pain nystatin 100,000 unit/gram topical 1 appl topical BID PRN Rash 10/29/23 11/26/24 11/25/24 History powder vit C 250 mg-vit E 90 mg-zinc 40 1 cap PO BID 10/29/23 11/26/24 11/25/24 History mg-copper 1 [id number] capsule (PreserVision AREDS-2) insulin glargine 100 unit/mL 13 unit subcut BEDTIME 11/05/24 11/26/24 11/25/24 History subcutaneous solution (Lantus U-100 Insulin) torsemide 20 mg tablet 10 mg PO DAILY 11/05/24 11/26/24 11/25/24 History Physical Exam Vital Signs: Vital Signs: Last Vital Signs Temp 97.3 F 12/29/24 14:04 Pulse 130 H 12/29/24 14:04 Resp 18 12/29/24 14:04 BP 108/42 L 12/29/24 14:04 Pulse Ox 90 L 12/29/24 14:04 O2 Del Method Mechanical Ventil ation 12/29/24 14:04 FiO2 100 12/29/24 11:50 BMI result Body Mass Index 33.2 GENERAL APPEARANCE: Sedated and intubated. SKIN: no suspicious lesions, warm and dry. HEART: no murmurs, regular rate and rhythm. Tachycardic. LUNGS: clear to auscultation anteriorly. Tachypneic. ABDOMEN: soft EXTREMITIES: no edema. PERIPHERAL PULSES: equal. NEUROLOGIC: Ventilated currently. Objective Labs and Meds 12/29/24 12:46 12/29/24 12:46 Lab results: Laboratory Results - last 24 hr 12/29/24 12/29/24 12/29/24 10:57 11:53 12:20 WBC TNP RBC TNP Hgb TNP Hct TNP MCV TNP MCH TNP MCHC TNP RDW TNP Plt Count TNP MPV TNP Immature Gran % (Auto) TNP Neut % (Auto) TNP Lymph % (Auto) TNP [place] % (Auto) TNP Eos % (Auto) TNP Baso % (Auto) TNP Lymph # (Auto) TNP [place] # (Auto) TNP Eos # (Auto) TNP Baso # (Auto) TNP Abs Immat Gran (auto) TNP Absolute Neuts (auto) TNP Absolute Nucleated RBC TNP Nucleated RBC % (auto) TNP Smear Tech's Comments PT TNP INR TNP APTT TNP VBG pH VBG pCO2 VBG pO2 VBG HCO3 VBG O2 Saturation VBG Base Excess Sodium Cancelled Potassium Cancelled Chloride Cancelled Carbon Dioxide Cancelled Anion Gap Cancelled BUN Cancelled Creatinine Cancelled Estim Creat Clear Calc Cancelled Estimated GFR Cancelled POC Glucose 104 Random Glucose Cancelled Lactic Acid Calcium Cancelled Magnesium Cancelled Total Bilirubin Cancelled Direct Bilirubin Cancelled AST Cancelled ALT Cancelled Alkaline Phosphatase Cancelled Total Creatine Kinase Cancelled Troponin I High Sens Cancelled B-Natriuretic Peptide Cancelled Total Protein Cancelled Albumin Cancelled Urine Color Urine Appearance Urine pH Ur Specific [place] Urine Protein Urine Glucose (UA) Urine Ketones Urine Blood Urine Nitrite Ur Leukocyte Esterase Urine RBC Urine WBC Ur Squamous Epith Cells Ur Transition Epith Cell Ur Renal Epithelial Cell Urine Bacteria Hyaline Casts Influenza Type A (PCR) NEGATIVE Influenza Type B (PCR) NEGATIVE RSV RNA Qual (PCR) NEGATIVE SARS-CoV-2 RNA (RT-PCR) NEGATIVE Blood Type Antibody Screen Crossmatch 12/29/24 12/29/24 12/29/24 12:23 12:26 12:46 WBC 31.5 H* RBC 4.41 L Hgb 12.8 L Hct 40.4 L MCV 91.6 MCH 29.0 MCHC 31.7 RDW 14.8 Plt Count 292 MPV 10.6 Immature Gran % (Auto) 3.8 H Neut % (Auto) 75.7 H Lymph % (Auto) 14.3 L [place] % (Auto) 2.9 Eos % (Auto) 2.8 Baso % (Auto) 0.5 Lymph # (Auto) 4.5 [place] # (Auto) 0.9 Eos # (Auto) 0.9 H Baso # (Auto) 0.2 Abs Immat Gran (auto) 1.20 H Absolute Neuts (auto) 23.8 H Absolute Nucleated RBC 0.000 Nucleated RBC % (auto) 0.0 Smear Tech's Comments VERIFIED PT INR APTT VBG pH TNP VBG pCO2 TNP VBG pO2 TNP VBG HCO3 TNP VBG O2 Saturation TNP VBG Base Excess TNP Sodium 136 Potassium 5.2 H Chloride 105 Carbon Dioxide 17 L Anion Gap 19 BUN 56 H Creatinine 2.08 H Estim Creat Clear Calc 27.3 Estimated GFR 31 POC Glucose Random Glucose 196 H Lactic Acid Calcium 7.9 L Magnesium 2.1 Total Bilirubin 0.5 Direct Bilirubin 0.2 AST 533 H ALT 533 H Alkaline Phosphatase 122 H Total Creatine Kinase Troponin I High Sens 42.0 H B-Natriuretic Peptide 223 H Total Protein 6.8 Albumin 3.1 L Urine Color Urine Appearance Urine pH Ur Specific [place] Urine Protein Urine Glucose (UA) Urine Ketones Urine Blood Urine Nitrite Ur Leukocyte Esterase Urine RBC Urine WBC Ur Squamous Epith Cells Ur Transition Epith Cell Ur Renal Epithelial Cell Urine Bacteria Hyaline Casts Influenza Type A (PCR) Influenza Type B (PCR) RSV RNA Qual (PCR) SARS-CoV-2 RNA (RT-PCR) Blood Type A Positive Antibody Screen NEGATIVE Crossmatch See Detail 12/29/24 12/29/24 12/29/24 12:48 13:10 13:12 WBC RBC Hgb Hct MCV MCH MCHC RDW Plt Count MPV Immature Gran % (Auto) Neut % (Auto) Lymph % (Auto) [place] % (Auto) Eos % (Auto) Baso % (Auto) Lymph # (Auto) [place] # (Auto) Eos # (Auto) Baso # (Auto) Abs Immat Gran (auto) Absolute Neuts (auto) Absolute Nucleated RBC Nucleated RBC % (auto) Smear Tech's Comments PT 14.9 H INR 1.3 H APTT 41.3 H VBG pH 7.03 L* VBG pCO2 63 VBG pO2 52 VBG HCO3 17 L VBG O2 Saturation 64.0 VBG Base Excess -14.3 Sodium Potassium Chloride Carbon Dioxide Anion Gap BUN Creatinine Estim Creat Clear Calc Estimated GFR POC Glucose Random Glucose Lactic Acid 4.0 H* Calcium Magnesium Total Bilirubin Direct Bilirubin AST ALT Alkaline Phosphatase Total Creatine Kinase Troponin I High Sens B-Natriuretic Peptide Total Protein Albumin Urine Color Urine Appearance Urine pH Ur Specific [place] Urine Protein Urine Glucose (UA) Urine Ketones Urine Blood Urine Nitrite Ur Leukocyte Esterase Urine RBC Urine WBC Ur Squamous Epith Cells Ur Transition Epith Cell Ur Renal Epithelial Cell Urine Bacteria Hyaline Casts Influenza Type A (PCR) Influenza Type B (PCR) RSV RNA Qual (PCR) SARS-CoV-2 RNA (RT-PCR) Blood Type Antibody Screen Crossmatch 12/29/24 13:23 WBC RBC Hgb Hct MCV MCH MCHC RDW Plt Count MPV Immature Gran % (Auto) Neut % (Auto) Lymph % (Auto) [place] % (Auto) Eos % (Auto) Baso % (Auto) Lymph # (Auto) [place] # (Auto) Eos # (Auto) Baso # (Auto) Abs Immat Gran (auto) Absolute Neuts (auto) Absolute Nucleated RBC Nucleated RBC % (auto) Smear Tech's Comments PT INR APTT VBG pH VBG pCO2 VBG pO2 VBG HCO3 VBG O2 Saturation VBG Base Excess Sodium Potassium Chloride Carbon Dioxide Anion Gap BUN Creatinine Estim Creat Clear Calc Estimated GFR POC Glucose Random Glucose Lactic Acid Calcium Magnesium Total Bilirubin Direct Bilirubin AST ALT Alkaline Phosphatase Total Creatine Kinase Troponin I High Sens B-Natriuretic Peptide Total Protein Albumin Urine Color Yellow Urine Appearance Cloudy Urine pH 5.5 Ur Specific [place] 1.010 Urine Protein 100 (2+) H Urine Glucose (UA) 500 H Urine Ketones Negative Urine Blood Large (3+) H Urine Nitrite Negative Ur Leukocyte Esterase Trace H Urine RBC 6-10 H Urine WBC 21-50 H Ur Squamous Epith Cells 6-10 Ur Transition Epith Cell Present Ur Renal Epithelial Cell Present Urine Bacteria 1+ Hyaline Casts 11-20 Influenza Type A (PCR) Influenza Type B (PCR) RSV RNA Qual (PCR) SARS-CoV-2 RNA (RT-PCR) Blood Type Antibody Screen Crossmatch Imaging Radiologist's impression: Impressions Chest X-Ray 12/29/24 11:03 IMPRESSION: Hypoexpanded lungs with left upper lobe infiltrate. Bibasilar atelectasis. Enteric tube and endotracheal tube are in satisfactory position. Electronically signed by: Jarod Evans MD 12/29/2024 11:28 AM [facility] Assessment and Plan (1) Cardiac arrest: Status: Acute Plan 79-year-old gentleman with multiple comorbidities presenting with pulseless electrical activity/cardiac arrest. Etiology is unclear but he recently had pneumonia and was treated for that. It appears he has advanced COPD. His EKGs has shown right bundle-branch block with T-wave inversions which raises concern for thromboembolism. We did bedside echocardiography but he is on dopamine and LV RV function appears to be hyperdynamic. In some views the apical RV also appears hyperkinetic but difficult to say that this is Hernandez sign. Clearly no ST elevations or concern for ACS currently. Support with vasopressors and would recommend covering him broadly with antibiotics till we have a clear idea about etiology. He has significant leukocytosis currently but unclear whether he has received recent steroids or not. If no obvious etiology found then consider scanning for PE. Thank you for allowing me to participate in the care of your patient. Please feel free to contact me if you have any questions. Procedures Date of Service Date of Service: 12/29/24
[2024-12-29 15:20] LABS: Reflex Lactate? Lactic Acid Added
[2024-12-29 15:22] LABS: ABG Base Excess -11.9 mmol/L; ABG HCO3 16 mmol/L (22-26); ABG pCO2 46 mmHg (32-45); ABG pH 7.15 (7.35-7.45); ABG pO2 62 mmHg (83-108)
[2024-12-29] MEDS: propofoL 1,000 MG/100 ML VIAL 25.53 MG IVCONT (15:22)
--- NOTE | 2024-12-29 15:39 | PC.NURSE ---
dopamine was titrated per MD verbal order. at 1206 up to 50mcg/kk 1208 titrate to 20mg/kg at 1423 Dr White verbal order to lower dopamine to 15mc/kg
--- NOTE | 2024-12-29 15:41 | PC.NURSE ---
2 units of blood were stat ordered to start per Dr. Goff. upon delivery, blood from 1st unit was primed in tube and unit was started at 1245. This nurse and Maria Del Carmen munguia checked the pt wrist band, blood bank band, unit number, and vitals. The blood was started at 1245. vitals as follows: 132 HR 91 O2 18 RR 133/70 BP 97.5 temp. The blood was infusing for approximatly 1 minute before we stopped the blood due to a question of the cbc accuracy. The blood was stopped and not resumed. The other unit was never started.
[2024-12-29 15:45] LABS: Glucose, Whole Blood 224 mg/dL (60-115)
[2024-12-29] MEDS: Chlorhexidine Gluc Oral Rinse 15 ML MOUTHWASH BUCCAL (15:48)
[2024-12-29] MEDS: Insulin Lispro 100 UNIT/ML 3 ML VIAL SUBCUT (15:48)
[2024-12-29] MEDS: Norepinephrine Bitartrate/D5W 8 MG/250 ML PLAST..BAG 7.98 MG IVCONT (15:48)
--- NOTE | 2024-12-29 15:59 | P.HPCC_ITS ---
History of Present Illness Date of Service: 12/29/24 Chief Complaint: Cardiac arrest 79-year-old gentleman with underlying history of diabetes mellitus, hypertension, hyperlipidemia, COPD on supplemental oxygen 3 L, CKD stage 3, diastolic heart failure, CAD who after arriving to the hospital parking for his pulmonary appointment sustained a what appears to be a bradycardic cardiac arrest with successful resuscitation and subsequent bradycardic rearrest, again with successful resuscitation. Patient is intubated during the CPR. His CT head showed no acute findings. His CT chest what appears to be sequela of aspiration, unclear whether predating or concurrent with cardiac arrest. Bedside echocardiography showed hyperdynamic cardiac activity. Review of Systems 2 Review of Systems: No unobtainable due to endotracheal tube, Unobtainable due to mental condition or Unobtainable due to mental status PMFSH Past Medical History Medical History (Updated 12/29/24 @ 16:08 by Silver Alcantar MD) Chronic kidney disease, stage 3 LARRY (obstructive sleep apnea) Acute and chronic respiratory failure with hypoxia Acute on chronic heart failure with preserved ejection fraction (HFpEF) Pneumonia Acute non-ST elevation myocardial infarction (NSTEMI) Adult respiratory distress syndrome Hyperlipidemia Hypertension Diabetes mellitus, type 2 Chronic respiratory failure with hypoxia COPD (chronic obstructive pulmonary disease) CKD (chronic kidney disease) CHF (congestive heart failure) Coronary artery disease Family History Family History Other Cancer Surgical History Surgical History S/P coronary artery stent placement Social History Social History Household Members: Family Housing: House Do you presently have visiting nurse or other home services: No Alcohol intake: never Patient Tobacco Use Status: Former Tobacco user Second Hand Smoke Exposure: No Advance Directives: Yes Advance Directives on File: No service: No Meds Allergies Allergy/AdvReac Type Severity Reaction Status Date / Time No Known Allergies Allergy Verified 12/29/24 11:20 Active Medications: Current Medications Chlorhexidine Gluconate (Chlorhexidine Gluc Oral Rinse 15 Ml Mouthwash) 15 ml BUCCAL TID ANDREW Last Admin: 12/29/24 15:48 Dose: 15 ml Famotidine (Famotidine/Pf 20 Mg/2 Ml Vial) 20 mg IVPUSH DAILY ANDREW Fentanyl (Sublimaze/Ns) 1,000 mcg in 100 mls @ 0 mls/hr IVCONT .Q0M ANDREW; Protocol Last Titration: 12/29/24 15:04 Dose: 25 mcg/hr, 2.5 mls/hr Propofol (Diprivan) 1,000 mg in 100 mls @ 0 mls/hr IVCONT .Q0M ANDREW; Protocol Last Admin: 12/29/24 15:22 Dose: 50 mcg/kg/min, 25.53 mls/hr Sodium Bicarbonate 150 meq/ (Dextrose) 1,000 mls @ 50 mls/hr IV .Q20H ANDREW Last Admin: 12/29/24 13:10 Dose: 50 mls/hr Vancomycin HCl (Vancomycin/Ns) 2,000 mg in 500 mls @ 250 mls/hr IV ONCE ONE Stop: 12/29/24 16:49 Piperacillin Sod/Tazobactam (Sod 3.375 gm/ Sodium Chloride) 50 mls @ 100 mls/hr IV Q6H ANDREW Norepinephrine Bitartrate (Levophed) 8 mg in 250 mls @ 0 mls/hr IVCONT .Q0M ANDREW; Protocol Last Admin: 12/29/24 15:48 Dose: 0.05 mcg/kg/min, 7.98 mls/hr Insulin Human Lispro (Insulin Lispro 100 Unit/Ml 3 Ml Vial) 0 unit SUBCUT QIDACHS [facility]; Protocol Last Admin: 12/29/24 15:48 Dose: 4 unit Naloxone HCl (Naloxone Hcl 0.4 Mg/Ml Vial) 0.2 mg IVPUSH Q2M PRN PRN Reason: Excessive sedation or RR < 8 Home Medications ?Medication ?Instructions ?Recorded ?Confirmed ?Last Taken ?Type aspirin 81 mg chewable tablet 1 tab PO DAILY 10/03/23 11/26/24 11/25/24 History atorvastatin 80 mg tablet 80 mg PO DAILY 10/03/23 11/26/24 11/25/24 History empagliflozin 10 mg tablet 25 mg PO DAILY 10/03/23 11/26/24 11/25/24 History (Jardiance) ferrous sulfate 325 mg (65 mg 325 mg PO DAILY 10/03/23 11/26/24 11/25/24 History iron) tablet insulin aspart U-100 100 unit/mL See Protocol subcut TIDAC 10/03/23 11/26/24 11/25/24 History (3 mL) subcutaneous pen (Novolog FlexPen U-100 Insulin aspart) umeclidinium 62.5 mcg/actuation 1 inh inhalation DAILY 10/03/23 11/26/24 11/25/24 History blister powder for inhalation (Incruse Ellipta) nitroglycerin 0.4 mg sublingual 0.4 mg sublingual Q5M PRN Chest 10/29/23 11/26/24 11/25/24 History tablet Pain nystatin 100,000 unit/gram topical 1 appl topical BID PRN Rash 10/29/23 11/26/24 11/25/24 History powder vit C 250 mg-vit E 90 mg-zinc 40 1 cap PO BID 10/29/23 11/26/24 11/25/24 History mg-copper 1 [id number] capsule (PreserVision AREDS-2) insulin glargine 100 unit/mL 13 unit subcut BEDTIME 11/05/24 11/26/24 11/25/24 History subcutaneous solution (Lantus U-100 Insulin) torsemide 20 mg tablet 10 mg PO DAILY 11/05/24 11/26/24 11/25/24 History clopidogrel 75 mg tablet 75 mg PO DAILY 12/29/24 Unknown History Physical Exam 2 Vital Signs: Vital Signs: Last Vital Signs Temp 97.3 F 12/29/24 14:04 Pulse 121 H 12/29/24 15:48 Resp 18 12/29/24 14:04 BP 126/69 12/29/24 15:48 Pulse Ox 90 L 12/29/24 14:04 O2 Del Method Mechanical Ventil ation 12/29/24 14:04 FiO2 100 12/29/24 11:50 BMI result Body Mass Index 33.2 Const: General: no acute distress and other (Sedated on the vent) Eyes: Sclerae: sclerae normal EOM: EOMs intact bilaterally Neck: Neck: Yes no lymphadenopathy, Yes trachea midline and Yes supple Resp: Auscultation: crackles (Bilateral) Cardio: Rate: regular rate Rhythm: regular rhythm Heart sounds: no gallops, no murmurs and no rubs GI: Palpation (GI): Soft to palpation and Other GI palpation findings present ( Nontender) Auscultation: normal bowel sounds Extrem: General: No clubbing, No cyanosis and Yes edema (Trace bilateral) Results Labs 12/29/24 12:46 12/29/24 12:46 Labs: Laboratory Results - last 24 hr 12/29/24 12/29/24 12/29/24 10:57 11:53 12:20 MCV TNP MCH TNP MCHC TNP RDW TNP Plt Count TNP MPV TNP Immature Gran % (Auto) TNP Neut % (Auto) TNP Lymph % (Auto) TNP [place] % (Auto) TNP Eos % (Auto) TNP Baso % (Auto) TNP Lymph # (Auto) TNP [place] # (Auto) TNP Eos # (Auto) TNP Baso # (Auto) TNP Abs Immat Gran (auto) TNP Absolute Neuts (auto) TNP Absolute Nucleated RBC TNP Nucleated RBC % (auto) TNP Smear Tech's Comments PT TNP INR TNP APTT TNP O2 Saturation ABG pH at Pt Temp ABG pCO2 at Pt Temp ABG pO2 at Pt Temp ABG HCO3 ABG Base Excess (Actual) VBG pH VBG pCO2 VBG pO2 VBG HCO3 VBG O2 Saturation VBG Base Excess Anion Gap Cancelled Estim Creat Clear Calc Cancelled Estimated GFR Cancelled POC Glucose 104 Random Glucose Cancelled Lactic Acid Calcium Cancelled Magnesium Cancelled Total Bilirubin Cancelled Direct Bilirubin Cancelled AST Cancelled ALT Cancelled Alkaline Phosphatase Cancelled Total Creatine Kinase Cancelled Troponin I High Sens Cancelled B-Natriuretic Peptide Cancelled Total Protein Cancelled Albumin Cancelled Urine Color Urine Appearance Urine pH Ur Specific [place] Urine Protein Urine Glucose (UA) Urine Ketones Urine Blood Urine Nitrite Ur Leukocyte Esterase Urine RBC Urine WBC Ur Squamous Epith Cells Ur Transition Epith Cell Ur Renal Epithelial Cell Urine Bacteria Hyaline Casts Influenza Type A (PCR) NEGATIVE Influenza Type B (PCR) NEGATIVE RSV RNA Qual (PCR) NEGATIVE SARS-CoV-2 RNA (RT-PCR) NEGATIVE Blood Type Antibody Screen Crossmatch 12/29/24 12/29/24 12/29/24 12:23 12:26 12:46 MCV 91.6 MCH 29.0 MCHC 31.7 RDW 14.8 Plt Count 292 MPV 10.6 Immature Gran % (Auto) 3.8 H Neut % (Auto) 75.7 H Lymph % (Auto) 14.3 L [place] % (Auto) 2.9 Eos % (Auto) 2.8 Baso % (Auto) 0.5 Lymph # (Auto) 4.5 [place] # (Auto) 0.9 Eos # (Auto) 0.9 H Baso # (Auto) 0.2 Abs Immat Gran (auto) 1.20 H Absolute Neuts (auto) 23.8 H Absolute Nucleated RBC 0.000 Nucleated RBC % (auto) 0.0 Smear Tech's Comments VERIFIED PT INR APTT O2 Saturation ABG pH at Pt Temp ABG pCO2 at Pt Temp ABG pO2 at Pt Temp ABG HCO3 ABG Base Excess (Actual) VBG pH TNP VBG pCO2 TNP VBG pO2 TNP VBG HCO3 TNP VBG O2 Saturation TNP VBG Base Excess TNP Anion Gap 19 Estim Creat Clear Calc 27.3 Estimated GFR 31 POC Glucose Random Glucose 196 H Lactic Acid Calcium 7.9 L Magnesium 2.1 Total Bilirubin 0.5 Direct Bilirubin 0.2 AST 533 H ALT 533 H Alkaline Phosphatase 122 H Total Creatine Kinase Troponin I High Sens 42.0 H B-Natriuretic Peptide 223 H Total Protein 6.8 Albumin 3.1 L Urine Color Urine Appearance Urine pH Ur Specific [place] Urine Protein Urine Glucose (UA) Urine Ketones Urine Blood Urine Nitrite Ur Leukocyte Esterase Urine RBC Urine WBC Ur Squamous Epith Cells Ur Transition Epith Cell Ur Renal Epithelial Cell Urine Bacteria Hyaline Casts Influenza Type A (PCR) Influenza Type B (PCR) RSV RNA Qual (PCR) SARS-CoV-2 RNA (RT-PCR) Blood Type A Positive Antibody Screen NEGATIVE Crossmatch See Detail 12/29/24 12/29/24 12/29/24 12:48 13:10 13:12 MCV MCH MCHC RDW Plt Count MPV Immature Gran % (Auto) Neut % (Auto) Lymph % (Auto) [place] % (Auto) Eos % (Auto) Baso % (Auto) Lymph # (Auto) [place] # (Auto) Eos # (Auto) Baso # (Auto) Abs Immat Gran (auto) Absolute Neuts (auto) Absolute Nucleated RBC Nucleated RBC % (auto) Smear Tech's Comments PT 14.9 H INR 1.3 H APTT 41.3 H O2 Saturation ABG pH at Pt Temp ABG pCO2 at Pt Temp ABG pO2 at Pt Temp ABG HCO3 ABG Base Excess (Actual) VBG pH 7.03 L* VBG pCO2 63 VBG pO2 52 VBG HCO3 17 L VBG O2 Saturation 64.0 VBG Base Excess -14.3 Anion Gap Estim Creat Clear Calc Estimated GFR POC Glucose Random Glucose Lactic Acid 4.0 H* Calcium Magnesium Total Bilirubin Direct Bilirubin AST ALT Alkaline Phosphatase Total Creatine Kinase Troponin I High Sens B-Natriuretic Peptide Total Protein Albumin Urine Color Urine Appearance Urine pH Ur Specific [place] Urine Protein Urine Glucose (UA) Urine Ketones Urine Blood Urine Nitrite Ur Leukocyte Esterase Urine RBC Urine WBC Ur Squamous Epith Cells Ur Transition Epith Cell Ur Renal Epithelial Cell Urine Bacteria Hyaline Casts Influenza Type A (PCR) Influenza Type B (PCR) RSV RNA Qual (PCR) SARS-CoV-2 RNA (RT-PCR) Blood Type Antibody Screen Crossmatch 12/29/24 12/29/24 12/29/24 13:23 15:19 15:42 MCV MCH MCHC RDW Plt Count MPV Immature Gran % (Auto) Neut % (Auto) Lymph % (Auto) [place] % (Auto) Eos % (Auto) Baso % (Auto) Lymph # (Auto) [place] # (Auto) Eos # (Auto) Baso # (Auto) Abs Immat Gran (auto) Absolute Neuts (auto) Absolute Nucleated RBC Nucleated RBC % (auto) Smear Tech's Comments PT INR APTT O2 Saturation 81.0 ABG pH at Pt Temp 7.15 L* ABG pCO2 at Pt Temp 46 H ABG pO2 at Pt Temp 62 L ABG HCO3 16 L ABG Base Excess (Actual) -11.9 VBG pH VBG pCO2 VBG pO2 VBG HCO3 VBG O2 Saturation VBG Base Excess Anion Gap Estim Creat Clear Calc Estimated GFR POC Glucose 224 H Random Glucose Lactic Acid Calcium Magnesium Total Bilirubin Direct Bilirubin AST ALT Alkaline Phosphatase Total Creatine Kinase Troponin I High Sens B-Natriuretic Peptide Total Protein Albumin Urine Color Yellow Urine Appearance Cloudy Urine pH 5.5 Ur Specific [place] 1.010 Urine Protein 100 (2+) H Urine Glucose (UA) 500 H Urine Ketones Negative Urine Blood Large (3+) H Urine Nitrite Negative Ur Leukocyte Esterase Trace H Urine RBC 6-10 H Urine WBC 21-50 H Ur Squamous Epith Cells 6-10 Ur Transition Epith Cell Present Ur Renal Epithelial Cell Present Urine Bacteria 1+ Hyaline Casts 11-20 Influenza Type A (PCR) Influenza Type B (PCR) RSV RNA Qual (PCR) SARS-CoV-2 RNA (RT-PCR) Blood Type Antibody Screen Crossmatch Imaging Radiologist's Impressions: Impressions Chest X-Ray 12/29/24 11:03 IMPRESSION: Hypoexpanded lungs with left upper lobe infiltrate. Bibasilar atelectasis. Enteric tube and endotracheal tube are in satisfactory position. Electronically signed by: Jarod Evans MD 12/29/2024 11:28 AM EST RP Chest CT 12/29/24 13:14 IMPRESSION: 1. New confluent airspace opacities in both lower lobes, consistent with pneumonia or aspiration. Progression of airspace opacity in the left upper lobe since the prior study. 2. Acute fractures of the lateral aspects of the bilateral 3rd, 4th, and 5th ribs, and the anterior aspect of the right 6th rib. 3. Cholelithiasis. Electronically signed by: Serjio Pelletier MD 12/29/2024 03:02 PM EST RP Head CT 12/29/24 13:14 IMPRESSION: No acute intracranial hemorrhage. Hypoxia/anoxia encephalopathy cannot be excluded. Electronically signed by: Jose Myles MD 12/29/2024 02:53 PM EST RP Abdomen/Pelvis CT 12/29/24 13:41 IMPRESSION: 1. New confluent airspace opacities in both lower lobes, consistent with pneumonia or aspiration. Progression of airspace opacity in the left upper lobe since the prior study. 2. Acute fractures of the lateral aspects of the bilateral 3rd, 4th, and 5th ribs, and the anterior aspect of the right 6th rib. 3. Cholelithiasis. Electronically signed by: Serjio Pelletier MD 12/29/2024 03:02 PM EST RP Assessment and Plan (1) Cardiac arrest: Status: Acute (2) Pulmonary aspiration: Status: Acute (3) Acute kidney injury superimposed on CKD: Status: Acute (4) Diabetes mellitus, type 2: Status: Acute (5) Coronary artery disease: Status: Acute (6) Chronic heart failure with preserved ejection fraction (HFpEF): Status: Acute (7) COPD (chronic obstructive pulmonary disease): Status: Acute Plan Assessment: 79-year-old gentleman with underlying CAD, diastolic heart failure, oxygen-dependent COPD admitted after [id number] bradycardic cardiac arrest likely secondary to pulmonary aspiration Plan: Neuro: No acute issues. Cardiac: Bradycardic cardiac arrest with successful resuscitation. Continue to titrate off pressor support as tolerated. Underlying history of CAD and diastolic heart failure. Pulmonary: Acute hypoxic respiratory failure likely secondary to pulmonary aspiration, intubated during the CPR. Continue to titrate off ventilatory support as tolerated. Underlying 3 L dependent COPD. Renal: Acute kidney injury on a background of chronic kidney disease likely secondary to ischemia from cardiac arrest. Non oliguric. Continue to monitor renal indices and urine output. Endo: No acute issues. Underlying diabetes mellitus, continue sliding scale insulin. GI: Ischemic hepatitis likely secondary to cardiac arrest, continue to trend transaminases. ID: Empiric coverage for pulmonary aspiration. Cultures are pending. Heme/Onc: No acute issues. Psych: No acute issues. Miscellaneous: No acute issues. Prophylaxis: Pneumatic compression, famotidine Diet: NPO Critical care time spent: 90 minutes
[2024-12-29 16:12] LABS: VBG Base Excess -8.7 mmol/L; VBG HCO3 21 mmol/L (22-26); VBG pCO2 60 mmHg; VBG pH 7.14 (7.32-7.43); VBG pO2 44 mmHg
[2024-12-29 16:14] LABS: Venous Blood Gas Refer to POC result
[2024-12-29 16:19] LABS: Anion Gap 16 (12-20); Blood Urea Nitrogen 56 mg/dL (9-16); Calcium 7.7 mg/dL (8.4-10.2); Carbon Dioxide 19 mmol/L (22-29); Chloride 105 mmol/L (96-108); Creatinine Clr Calc Pharmacy 29.5; Estimated Glomerular Filt Rate 34; Glucose Random 284 mg/dL (60-115); Magnesium 1.8 mg/dL (1.6-2.6); Potassium 5.7 mmol/L (3.3-5.1); Sodium 134 mmol/L (135-145)
--- NOTE | 2024-12-29 16:30 | PM.CCN ---
Critical Care Event Note Summary Date of Service: 12/29/24 Code activated: No Narrative: Patient with another episode cardiac arrest, this time PEA, return of spontaneous circulation achieved after 2 rounds of CPR. Suspicion for underlying pulmonary embolism. IV TNK and heparin drip ordered. Critical Care Time (minutes): 30
[2024-12-29 16:31] LABS: Lactic Acid 1.5 mmol/L (0.5-2.0); ~Lactic Acid-LAB USE ONLY 1.5 mmol/L (0.5-2.0)
[2024-12-29 16:33] LABS: Amphetamine Screen Urine Not Detected (Not Detect); Barbiturates, Urine Not Detected (Not Detect); Benzodiazepines Screen Urine Not Detected (Not Detect); Buprenorphine Scr Not Detected (Not Detect); Cannabinoid Screen Urine Not Detected (Not Detect); Cocaine Screen Urine Not Detected (Not Detect); Fentanyl, urine POSITIVE (Not Detect); Methadone Screen, Urine Not Detected (Not Detect); Opiate Screen Urine Not Detected (Not Detect); Oxycodone Screen Urine Not Detected (Not Detect); Phencyclidine Screen Urine Not Detected (Not Detect)
[2024-12-29 16:36] LABS: Troponin-I High Sensitivity 303.6 ng/L (<3.5-35.0)
[2024-12-29] MEDS: Tenecteplase 50 MG/10 ML KIT 45 MG IVPUSH (16:42)
--- NOTE | 2024-12-29 16:49 | PM.CCN ---
Critical Care Event Note Summary Date of Service: 12/29/24 Code activated: No Narrative: Patient with another pea cardiac arrest, CPR started immediately and return of spontaneous circulation achieved after 2 rounds of CPR. Critical Care Time (minutes): 15
[2024-12-29 16:55] LABS: INTERNATIONAL NORM RATIO 1.5 (0.9-1.1); Prothrombin Time 17.7 SEC (10.9-12.4)
[2024-12-29 16:58] LABS: PTT Heparin Drip 42.7 SEC (53-77.9)
--- NOTE | 2024-12-29 17:02 | PM.CCN ---
Critical Care Event Note Summary Date of Service: 12/29/24 Code activated: No Narrative: Patient with sevenths sequential PEA rest deteriorating to asystole with CPR started immediately. CPR performed for 5 rounds with no return of spontaneous circulation. With further resuscitation efforts futile patient pronounced at 17:02. Family notified. Critical Care Time (minutes): 20
--- NOTE | 2024-12-29 17:05 | P.DN_ITS ---
Discharge Sum: Prov Provider Primary care physician: Elisa Lyman MD Discharge Sum: Diag Contributing Factors (1) Cardiac arrest: (2) Pulmonary embolism: (3) Pulmonary aspiration: (4) Acute kidney injury superimposed on CKD: (5) Diabetes mellitus, type 2: (6) Coronary artery disease: (7) Chronic heart failure with preserved ejection fraction (HFpEF): (8) COPD (chronic obstructive pulmonary disease): Discharge Sum: Summary Date and Time Date of admission: 12/29/24 14:55 Date of : 12/29/24 Time of : 17:02 Summary Details: 79-year-old gentleman with underlying history of diabetes mellitus, hype rtension, hyperlipidemia, COPD on supplemental oxygen 3 L, CKD stage 3, diastolic heart failure, CAD who after arriving to the hospital parking for his pulmonary appointment sustained a what appears to be a bradycardic cardiac arrest with successful resuscitation and subsequent bradycardic rearrest 3 more time in the emergency, again with successful resuscitation. Patient is intubated during the CPR. His CT head showed no acute findings. His CT chest what appears to be sequela of aspiration, unclear whether predating or concurrent with cardiac arrest. Bedside echocardiography showed hyperdynamic cardiac activity. Patient transferred to intensive care unit. Unfortunately, patient continued with recurrent cardiac arrests. Empiric TNK given for concern for massive pulmonary embolism. On 7th sequential cardiac arrest patient with no resuscitation after five rounds of CPR and with further resuscitative efforts futile patient pronounced at 17:02. Additional Data Confirmation of as documented by pronouncing clinician: no pulse, no respirations, no heart sounds and pupils fixed and dilated Family: at bedside Attending physician: Silver Alcantar MD
--- NOTE | 2024-12-29 18:34 | PC.NURSE ---
Patient arrived from ED at 1539 via stretcher. Intubated and sedated on propofol gtt. Dopamine gtt switched to Leovphed gtt per MD -see JAN. HR 120-130's sinus, MAP maintaining >65. Patient switched from ACVC to PC by RT - Spo2 >90% on 100% Fio2. 1617 PEA, Code Blue initiated - see separate documentation. ROSC 1621. Family updated by MD. 1633 PEA, Code Blue initiated - see separate documentation. ROSC 1637. Family updated by MD 1650 Asystole, Code Blue initiated - see separate documentation. TOD 1702. Family updated by MD and at bedside. Declined by NEDS [id number]
[2024-12-29 20:52] LABS: ABG Refer to POC result
== END 2024-12-29 18:43 | disposition expired | DRG 296 ==
LOC: HO.ED 15:04 → HO.EDOVER 15:14 → HO.ICU 15:21
PROVIDERS: Physician Assistant; Admitting Provider Internal Medicine Pulmonary Disease; Emergency Provider Emergency Medicine; PCP Internal Medicine; Visit Provider Internal Medicine Pulmonary Disease
DX: I46.9 Cardiac arrest, cause unspecified (principal); I26.99 Other pulmonary embolism without acute cor pulmonale; J96.01 Acute respiratory failure with hypoxia; K72.00 Acute and subacute hepatic failure without coma; N17.9 Acute kidney failure, unspecified; I25.10 Atherosclerotic heart disease of native coronary artery without angina pectoris; N18.30 Chronic kidney disease, stage 3 unspecified; E11.22 Type 2 diabetes mellitus with diabetic chronic kidney disease; Z20.822 Contact with and (suspected) exposure to COVID-19; Z99.81 Dependence on supplemental oxygen; Z95.5 Presence of coronary angioplasty implant and graft; Z79.4 Long term (current) use of insulin; Z79.02 Long term (current) use of antithrombotics/antiplatelets; Z79.82 Long term (current) use of aspirin; Z79.899 Other long term (current) drug therapy
CPT/HCPCS: 0241U; 36415; 70450; 71045; 71250; 74176; 80048; 80076; 80307; 81001; 82803; 82947; 83605; 83735; 83880; 84484; 85025; 85610; 85730; 86850; 86900; 86901; 86920; 87040; 87086; 93005; 93306; 94002; J0613; J1265; J2251; J2543; J2704; J3010; J3101; J7120; Q9957

== ENCOUNTER → 2024-12-29 11:03 | Outpatient (BNV) | payer OTHER, SELFPAY | PROVIDERS: Emergency Provider Emergency Medicine; PCP Internal Medicine; Visit Provider Radiology Diagnostic Radiology | DX: J18.9 Pneumonia, unspecified organism (principal); S22.43XA Multiple fractures of ribs, bilateral, initial encounter for closed fracture; I46.9 Cardiac arrest, cause unspecified; J98.11 Atelectasis; J98.4 Other disorders of lung | CPT/HCPCS: 70450; 71045; 71250; 74176 ==

== ENCOUNTER → 2024-12-29 11:12 | Outpatient (BNV) | payer OTHER, SELFPAY | PROVIDERS: Emergency Provider Emergency Medicine; PCP Internal Medicine; Visit Provider Internal Medicine Cardiovascular Disease | DX: R00.0 Tachycardia, unspecified (principal); I45.10 Unspecified right bundle-branch block | CPT/HCPCS: 93010 ==

== ENCOUNTER → 2024-12-29 14:55 | Outpatient (BNV) | payer OTHER, SELFPAY | PROVIDERS: Admitting Provider Internal Medicine Pulmonary Disease; Emergency Provider Emergency Medicine; PCP Internal Medicine; Visit Provider Internal Medicine Pulmonary Disease | DX: I46.9 Cardiac arrest, cause unspecified (principal); I26.99 Other pulmonary embolism without acute cor pulmonale; T17.900A Unspecified foreign body in respiratory tract, part unspecified causing asphyxiation, initial encounter; N17.9 Acute kidney failure, unspecified; N18.9 Chronic kidney disease, unspecified; E11.9 Type 2 diabetes mellitus without complications; I25.10 Atherosclerotic heart disease of native coronary artery without angina pectoris; I50.32 Chronic diastolic (congestive) heart failure; J44.9 Chronic obstructive pulmonary disease, unspecified | CPT/HCPCS: 99238; 99291; 99292 ==